=== PATIENT | male | born 1935 | race African-American/Black ===

== ENCOUNTER 2018-05-22 19:00 | Inpatient (IN) ==
--- NOTE | 2018-05-22 19:41 | XR ---
EXAM DATE: 05/22/2018 7:24 PM EDT AGE/SEX: 82 years / Male INDICATIONS: Chronic obstructive pulmonary disease. CLINICAL DATA: This is the patient's initial encounter. Patient reports that signs and symptoms have been present for 1 day and indicates a pain score of 0/10. MEDICAL/SURGICAL HISTORY: Chronic obstructive pulmonary disease. . Hernia repair. COMPARISON: [facility], CT CHEST W/O CONTRAST, 04/29/2018. [facility] [place], CHEST PA & LAT, 09/18/2013. . FINDINGS: Portable AP view of the chest demonstrates a normal-sized cardiac silhouette. There is rightward shif t of the mediastinum with that signs of volume loss in the right lung with a new parenchymal opacity in the right lower lung zone and blunting of the right costophrenic sulcus. Background lung changes a re characteristic of emphysema. No pneumothorax is identified. Bones demonstrate no acute abnormality . CONCLUSION: There is a new parenchymal opacity in the right lower lung zone, new compared to the chest CT perform ed approximately one month ago. There is also a new small right pleural effusion. Electronically signed by: Jerrod Patel MD 05/22/2018 7:40 PM EDT
[2018-05-22 20:08] LABS: Baso % (Auto) 0.4 % (0.0-2.0); Eos # (Auto) 0.1 th/mm3 (0.0-0.4); Eos % (Auto) 0.5 % (0.0-4.0); Hematocrit 29.5 % (39.0-51.0); Hemoglobin 9.5 gm/dL (13.0-17.0); Lymph # (Auto) 0.7 th/mm3 (1.0-4.8); Lymph % (Auto) 6.2 % (9.0-44.0); Mean Corpuscular HGB Conc 32.2 % (32.0-36.0); Mean Corpuscular Hemoglobin 28.2 pg (27.0-34.0); Mean Corpuscular Volume 87.7 fL (80.0-100.0); Mean Platelet Volume 7.4 fL (7.0-11.0); Mono # (Auto) 1.5 th/mm3 (0.0-0.9); Mono % (Auto) 13.4 % (0.0-8.0); Neut # (Auto) 8.7 th/mm3 (1.8-7.7); Neut % (Auto) 79.5 % (16.0-70.0); Platelet Count 356 th/mm3 (150-450); Red Blood Count 3.37 mil/mm3 (4.50-5.90); Red Cell Distribution Width 18.8 % (11.6-17.2); White Blood Count 10.9 th/mm3 (4.0-11.0)
[2018-05-22] MEDS ORDERED: Azithromycin Inj 500 MG in Sodium Chlor 0.9% Inj 250 ML IV.SIG ONE (20:20)
[2018-05-22 20:30] LABS: Amorphous Sediment,Urine Rare /hpf; Bacteria,Urine Rare /hpf; Bilirubin,Urine Negative (Negative); Clarity,Urine Hazy (Clear); Color,Urine Straw (Yellw/Straw); Glucose,Urine (UA) Negative (Negative); Leukocyte Esterase,Urine Negative (Negative); Nitrite,Urine Negative (Negative); Specific Gravity,Urine 1.012 (1.002-1.035); Squamous Epithelial Cell,Urine <1 /hpf (0-5)
[2018-05-22 20:48] LABS: Alanine Aminotransferase 15 U/L (12-78); Albumin 2.6 g/dL (3.4-5.0); Alkaline Phosphatase 47 U/L (45-117); Anion Gap 13 meq/L (5-15); Aspartate Aminotransferase 17 U/L (15-37); Blood Urea Nitrogen 98 mg/dL (7-18); Calcium 7.8 mg/dL (8.5-10.1); Carbon Dioxide 17.4 meq/L (21.0-32.0); Chloride 110 meq/L (98-107); Glomerular Filtration Rate 5 mL/min (>89); Glucose,Random 64 mg/dL (74-106); Sodium 140 meq/L (136-145); Total Protein 6.2 g/dL (6.4-8.2); Troponin I 0.03 ng/mL (0.02-0.05)
[2018-05-22 20:51] LABS: Potassium 6.9 meq/L (3.5-5.1)
[2018-05-22] MEDS ORDERED: Dextrose 50% in Water 50 ML Vial IV.PUSH ONE (20:56)
[2018-05-22] MEDS ORDERED: Sod Chloride 0.9% Inj 1,000 ML IV.SIG ONE ×2 (20:57→21:00)
[2018-05-22 21:03] LABS: ABG Base Excess -3.6 mmol/L (-2-2); ABG PCO2 42 mmHg (38-42); ABG PO2 84 mmHg (61-120)
[2018-05-22 21:16] LABS: Ovalocytes 2+
--- NOTE | 2018-05-22 21:38 | CT ---
EXAM DATE: 05/22/2018 9:25 PM EDT AGE/SEX: 82 years / Male INDICATIONS: Weakness, shortness of breath. CLINICAL DATA: This is the patient's initial encounter. Patient reports that signs and symptoms have been present for 1 day and indicates a pain score of 0/10. MEDICAL/SURGICAL HISTORY: Chronic obstructive pulmonary disease. Hypertension. . Hernia repair. RADIATION DOSE: 5.34 CTDI (mGy) COMPARISON: [facility], CT CHEST W/O CONTRAST, 04/29/2018. . TECHNIQUE: Multiple contiguous axial images were obtained through the chest without contrast. Image s were obtained in suspended respiration using multiple row detector helical technique. Using automa debby exposure control and adjustment of the mA and/or kV according to patient size, radiation dose was kept as low as reasonably achievable to obtain optimal diagnostic quality images. DICOM format imag e data is available electronically for review and comparison. FINDINGS: Lungs: There is moderate emphysema in the upper lobes. New groundglass opacity in the medial right u pper lobe is present. There is increased volume loss and airspace opacity in the right upper and righ t middle lobes. Mild dependent atelectasis is present in the right lower lobe. The left upper lobe pu lmonary nodule on image 27 is stable and measures 8 mm. Mediastinum: The heart and great vessels demonstrate no acute abnormality. No lymphadenopathy is id entified. There is severe atherosclerotic disease of the aorta with coronary artery calcification. Pleurae: A small right pleural effusion is present. There is trace left pleural fluid. Axillae: No lymphadenopathy. Musculoskeletal: The bones and soft tissues demonstrate no acute abnormality. There are degenerativ e changes of the thoracic spine. Other: Please refer to abdomen and pelvis CT report for description of the subdiaphragmatic findings . CONCLUSION: 1. There is volume loss and mild airspace opacity in the right upper lobe, right middle lobe, and le ft upper lobe. Material is also present within the bronchus intermedius suggesting aspiration as a po tential cause. These findings are new since the prior study. 2. New small right pleural effusion. 3. The left upper lobe 8 mm spiculated nodule remains present and will ultimately require further ev aluation as previously recommended. 4. Severe atherosclerotic disease and coronary artery calcification. Electronically signed by: Jerrod Patel MD 05/22/2018 9:37 PM EDT
--- NOTE | 2018-05-22 21:42 | CT ---
EXAM DATE: 05/22/2018 9:25 PM EDT AGE/SEX: 82 years / Male INDICATIONS: Abdominal pain. CLINICAL DATA: This is the patient's initial encounter. Patient reports that signs and symptoms have been present for 1 day and indicates a pain score of 5/10. MEDICAL/SURGICAL HISTORY: Chronic obstructive pulmonary disease. Hypertension. . Hernia repair . RADIATION DOSE: 5.47 CTDI (mGy) COMPARISON: [facility], CT ABDOMEN AND PELVIS W/O CONTRAST, 04/29/2018. . TECHNIQUE: Multiple contiguous axial images were obtained through the abdomen. Images were obtained using multiple row detector helical technique. Using automated exposure control and adjustment of the mA and/or kV according to patient size, radiation dose was kept as low as reasonably achievable to o btain optimal diagnostic quality images. DICOM format image data is available electronically for rev iew and comparison. FINDINGS: Lower chest: Please refer to chest CT report for description of the supradiaphragmatic findings. Hepatobiliary: No focal liver lesion is identified on this noncontrast examination. There is a calcif ied stone in the gallbladder. Common bile duct appears stable. Kidneys: Bilateral hydronephrosis and hydroureter remain present. There is a low-density lesion in th e left mid kidney measuring 17 mm with density measurements consistent with a simple cyst. Adrenal Glands: Not well visualized but no abnormality is appreciated. Spleen: Within normal limits. Pancreas: Not well visualized but no definite abnormality is seen. There is likely pancreas divisum a s the main duct appears to primarily drained through the minor papilla and main duct measures 4 mm. Vascular: There is severe atherosclerotic disease of the abdominal aorta. It has a tortuous course an d mildly ectatic. No aneurysm is present. Bowel/Mesentery: A small hiatal hernia is present. No small bowel abnormality is seen. No acute colon abnormality is visualized. No free air or free fluid is visualized. Abdominal Wall: No hernia is visualized. Retroperitoneum: No lymphadenopathy. Bladder: Decompressed with a Barreto catheter in place. Reproductive: Prostate gland is mildly enlarged. Inguinal: No lymphadenopathy or hernia. Musculoskeletal: No acute osseous abnormality is identified. There are degenerative changes of the ronni mbar spine with scoliosis. CONCLUSION: 1. No specific abnormality is identified to explain the abdominal pain. Barreto catheter is present wi thin the urinary bladder but there continues to be bilateral hydronephrosis and hydroureter similar t o the a prior study from 3 weeks ago. 2. Nonacute findings include cholelithiasis and severe atherosclerotic disease. Electronically signed by: Jerrod Patel MD 05/22/2018 9:41 PM EDT
--- NOTE | 2018-05-22 22:13 | ED ---
HPI General Chief complaint: Respiratory Symptoms Stated complaint: SOB Time Seen by Provider: 05/22/18 19:07 Source: patient, family and EMS Mode of arrival: EMS Limitations: no limitations History of Present Illness HPI narrative: 82-year-old male who presents to the ED for evaluation of shortness of breath. Patient came here by ambulance for violation of this. Per report I was given by ambulance apparently patient has been complain of shortness of breath and weakness for "sometimes ". Patient himself is not a good historian but he does tell me that he has a history of COPD and uses oxygen at home. Per patient uses 3 L. Apparently patient is not able to get up off his bed because he is very weak and apparently is by himself. Family upon he was at bedside and the ones who called the ambulance. Per [facility] they could not really get much history from the family. They kept saying that when he to ask him. Patient himself states that he does continue to smoke and has a history of COPD. He states he has a history of high blood pressure as well. Denies any history of heart problems. Denies take any blood thinners. He is having some chest pain on occasion and shortness of breath. No bowel movement issues but does state that he has been having multiple issues with his urine. Per patient he continues to urinate multiple times and because of his weakness he cannot make it to the bathroom. Denies dysuria. Related Data Home Medications Medication Instructions Recorded Confirmed doxepin 25 mg PO DAILY 05/22/18 05/22/18 gabapentin 400 mg PO DAILY 05/22/18 05/22/18 hydrocodone-acetaminophen 1 tab PO Q4-6H PRN 05/22/18 05/22/18 omeprazole 20 mg PO DAILY 05/22/18 05/22/18 prednisone 10 mg PO DAILY 05/22/18 05/22/18 tamsulosin 0.4 mg PO DAILY 05/22/18 05/22/18 trazodone 100 mg PO DAILY 05/22/18 05/22/18 Allergies Allergy/AdvReac Type Severity Reaction Status Date / Time No Known Allergies Allergy Unknown Uncoded 09/18/13 09:09 Review of Systems ROS Unobtainable All other systems reviewed negative except as stated in HPI [facility] Medical History Medical History COPD (chronic obstructive pulmonary disease) (Acute) Hypertension (Acute) Surgical History Surgical History H/O hernia repair (Acute) Social History Social History Second Hand Smoke Exposure: Yes Smoking Status: Light tobacco smoker Tobacco Type: Cigarettes How Often Do You Have a Drink Containing Alcohol: Never Recent Travel in [facility] within the Last 8 Weeks: No Recent Out of Country Travel within the Last 8 Weeks: No Immunization History Tetanus Immunization: Unsure Hx Influenza Vaccine This Season: Yes Exam Narrative Exam Narrative: GENERAL: Anorexic and slightly disheveled SKIN: Focused skin assessment warm/dry. HEAD: Atraumatic. Normocephalic. EYES: Pupils equal and round 4mms reactive to light and acomodation. No scleral icterus. No injection or drainage. ENT: No nasal bleeding or discharge. Mucous membranes pink and moist. Tongue is midline. No uvula deviation. NECK: Trachea midline. No JVD. CARDIOVASCULAR: Regular rate and rhythm. No murmur appreciated. RESPIRATORY: No accessory muscle use. Wheezing heard in all lung [place]. Breath sounds equal bilaterally. GASTROINTESTINAL: Abdomen soft, non-tender, nondistended. Hepatic and splenic margins not palpable. MUSCULOSKELETAL: No obvious deformities. No clubbing. No cyanosis. No edema. Full range of motion of the upper and lower extremities bilaterally. 2+ pulses bilaterally. NEUROLOGICAL: Awake and alert. No obvious cranial nerve deficits. Motor grossly within normal limits. Normal speech. PSYCHIATRIC: Appropriate mood and affect; insight and judgment normal. Course Initial Documented Vital Signs Temperature 98.6 F 05/22/18 19:13 Pulse Rate 106 H 05/22/18 19:13 Respiratory Rate 26 H 05/22/18 19:13 Blood Pressure 188/97 H 05/22/18 19:13 Pulse Oximetry 95 05/22/18 19:13 Last Documented Vital Signs Temperature 98.5 F 05/23/18 00:06 Pulse Rate 90 05/23/18 03:18 Respiratory Rate 18 05/23/18 03:18 Blood Pressure 180/98 H 05/23/18 03:18 Pulse Oximetry 97 05/23/18 03:18 Medical Decision Making NICA Attestation NICA supervised visit: Yes Attestation: Patient has acute renal failure bilateral hydronephrosis his creatinine is 11 we have no comparison recent but old 5 years ago it was normal on a lab value we found in past medical visits. Patient at this time is given 2 L of fluid to hydrate his kidneys as well as dextrose +10 units of insulin to drive the potassium intracellularly bicarb as well calcium gluconate and Kayexalate and is admitted to the ICU patient is stable at this time EKG does not show any peaked T waves patient has no cardiac symptoms of hyperkalemia at this time but his acute renal failure progressive over the last unknown amount of time is severe he will be admitted to the ICU Dr. Mark takes the patient from MDM Narrative Medical decision making narrative: 82-year-old male the presents to the ED for evaluation of shortness of breath. Patient was properly examined and was found to have signs and symptoms consider what appears to be COPD exacerbation. Patient does appear to be very disheveled. Labs and imaging ordered. Labs and imaging show what appears to be severe kidney disease. Patient himself does not know anything about kidney disease as far as I can tell. Patient and the family are not really good historians. Patient tells me that he has been having a lot of urinary issues but when asked if he has had any kidney problems he cannot really tell me and states that he has been having problems with his urine. He is along some better after breathing treatments and Solu-Medrol. Patient was also found to have hyperkalemia. Patient was started on Kayexalate , calcium gluconate, IV fluids, insulin and D50. Patient was evaluated by my attending Dr. Castle who agrees with plan. Patient will be admitted to the intensive is Dr. Harrington who agrees to admission. Family and patient agreed to admission. Differential Diagnosis Differential Diagnosis: Acute kidney failure versus kidney failure versus COPD exacerbation versus CHF versus weakness versus PE Medical Records Medical records reviewed: Yes I reviewed the patient's medical records. Lab Data Lab results reviewed: Yes I reviewed the patient's lab results. Lab results narrative: troponin of 0.03 Result diagrams: 05/22/18 19:20 05/23/18 00:10 Lab Results 05/22/18 05/22/18 05/22/18 Range/Units 19:20 19:20 19:20 WBC 10.9 (4.0-11.0) th/mm3 RBC 3.37 L (4.50-5.90) mil/mm3 Hgb 9.5 L (13.0-17.0) gm/dL Hct 29.5 L (39.0-51.0) % MCV 87.7 (80.0-100.0) fL MCH 28.2 (27.0-34.0) pg MCHC 32.2 (32.0-36.0) % RDW 18.8 H (11.6-17.2) % Plt Count 356 (150-450) th/mm3 MPV 7.4 (7.0-11.0) fL Prelim Diff (Auto) Slide review pending Neut % (Auto) 79.5 H (16.0-70.0) % Lymph % (Auto) 6.2 L (9.0-44.0) % [place] % (Auto) 13.4 H (0.0-8.0) % Eos % (Auto) 0.5 (0.0-4.0) % Baso % (Auto) 0.4 (0.0-2.0) % Neut # (Auto) 8.7 H (1.8-7.7) th/mm3 Lymph # (Auto) 0.7 L (1.0-4.8) th/mm3 [place] # (Auto) 1.5 H (0.0-0.9) th/mm3 Eos # (Auto) 0.1 (0.0-0.4) th/mm3 Baso # (Auto) 0.0 (0.0-0.2) th/mm3 WBC Differential . Diff Scan Auto diff confirmed Differential Comment . Ovalocytes 2+ H (None) Puncture Site Patient Temperature O2 Saturation (90-100) % ABG pH (7.380-7.420) ABG pCO2 (38-42) mmHg ABG pO2 (61-120) mmHg ABG HCO3 (22-26) mmol/L ABG O2 Content (12.0-20.0) Vol % ABG Base Excess (-2-2) mmol/L ABG Methemoglobin (0-2) % Onel Test Hemoglobin (12.0-16.0) G/DL Carboxyhemoglobin (0-4) % O2 Delivery Device Liter Flow L/M Inspired O2 % Critical Value Sodium 140 (136-145) meq/L Potassium 6.9 H* (3.5-5.1) meq/L Chloride 110 H (98-107) meq/L Carbon Dioxide 17.4 L (21.0-32.0) meq/L Anion Gap 13 (5-15) meq/L BUN 98 H (7-18) mg/dL Creatinine 11.63 H* (0.60-1.30) mg/dL Estimated GFR 5 L (>89) mL/min Random Glucose 64 L (74-106) mg/dL Calcium 7.8 L (8.5-10.1) mg/dL Total Bilirubin 1.2 H (0.2-1.0) mg/dL AST 17 (15-37) U/L ALT 15 (12-78) U/L Alkaline Phosphatase 47 (45-117) U/L Total Creatine Kinase 330 H (39-308) U/L CK-MB (CK-2) 7.6 H (0.5-3.6) ng/mL CK-MB (CK-2) % 2.3 (0.0-4.0) % Troponin I 0.03 (0.02-0.05) ng/mL Total Protein 6.2 L (6.4-8.2) g/dL Albumin 2.6 L (3.4-5.0) g/dL Urine Color (Yellw/Straw) Urine Clarity (Clear) Urine pH (5.0-8.5) Ur Specific [place] (1.002-1.035) Urine Protein (Neg-Trace) mg/dL Urine Glucose (UA) (Negative) mg/dL Urine Ketones (Negative) mg/dL Urine Occult Blood (Negative) Urine Nitrate (Negative) Urine Bilirubin (Negative) Urine Urobilinogen (Less than 2) mg/dL Ur Leukocyte Esterase (Negative) Urine RBC (0-3) /hpf Urine WBC (0-5) /hpf Ur Squamous Epith Cells (0-5) /hpf Amorphous Sediment (None) /hpf Urine Bacteria (None) /hpf Micro UA Comment Urine Culture Comments Urine Eosinophils (None Seen) /HPF Ur Random Creatinine (27-300) mg/dL Ur Random Sodium meq/L Complement C3 (90-180) mg/dL Complement C4 (10-40) mg/dL 05/22/18 05/22/18 05/22/18 Range/Units 19:20 19:45 19:45 WBC (4.0-11.0) th/mm3 RBC (4.50-5.90) mil/mm3 Hgb (13.0-17.0) gm/dL Hct (39.0-51.0) % MCV (80.0-100.0) fL MCH (27.0-34.0) pg MCHC (32.0-36.0) % RDW (11.6-17.2) % Plt Count (150-450) th/mm3 MPV (7.0-11.0) fL Prelim Diff (Auto) Neut % (Auto) (16.0-70.0) % Lymph % (Auto) (9.0-44.0) % [place] % (Auto) (0.0-8.0) % Eos % (Auto) (0.0-4.0) % Baso % (Auto) (0.0-2.0) % Neut # (Auto) (1.8-7.7) th/mm3 Lymph # (Auto) (1.0-4.8) th/mm3 [place] # (Auto) (0.0-0.9) th/mm3 Eos # (Auto) (0.0-0.4) th/mm3 Baso # (Auto) (0.0-0.2) th/mm3 WBC Differential Diff Scan Differential Comment Ovalocytes (None) Puncture Site Patient Temperature O2 Saturation (90-100) % ABG pH (7.380-7.420) ABG pCO2 (38-42) mmHg ABG pO2 (61-120) mmHg ABG HCO3 (22-26) mmol/L ABG O2 Content (12.0-20.0) Vol % ABG Base Excess (-2-2) mmol/L ABG Methemoglobin (0-2) % Onel Test Hemoglobin (12.0-16.0) G/DL Carboxyhemoglobin (0-4) % O2 Delivery Device Liter Flow L/M Inspired O2 % Critical Value Sodium (136-145) meq/L Potassium (3.5-5.1) meq/L Chloride (98-107) meq/L Carbon Dioxide (21.0-32.0) meq/L Anion Gap (5-15) meq/L BUN (7-18) mg/dL Creatinine (0.60-1.30) mg/dL Estimated GFR (>89) mL/min Random Glucose (74-106) mg/dL Calcium (8.5-10.1) mg/dL Total Bilirubin (0.2-1.0) mg/dL AST (15-37) U/L ALT (12-78) U/L Alkaline Phosphatase (45-117) U/L Total Creatine Kinase (39-308) U/L CK-MB (CK-2) (0.5-3.6) ng/mL CK-MB (CK-2) % (0.0-4.0) % Troponin I (0.02-0.05) ng/mL Total Protein (6.4-8.2) g/dL Albumin (3.4-5.0) g/dL Urine Color Straw (Yellw/Straw) Urine Clarity Hazy H (Clear) Urine pH 7.0 (5.0-8.5) Ur Specific [place] 1.012 (1.002-1.035) Urine Protein Negative (Neg-Trace) mg/dL Urine Glucose (UA) Negative (Negative) mg/dL Urine Ketones 20 (Negative) mg/dL Urine Occult Blood Moderate H (Negative) Urine Nitrate Negative (Negative) Urine Bilirubin Negative (Negative) Urine Urobilinogen Less than 2 (Less than 2) mg/dL Ur Leukocyte Esterase Negative (Negative) Urine RBC 19 H (0-3) /hpf Urine WBC 4 (0-5) /hpf Ur Squamous Epith Cells <1 (0-5) /hpf Amorphous Sediment Rare H (None) /hpf Urine Bacteria Rare H (None) /hpf Micro UA Comment Culture not ind Urine Culture Comments Culture not ind Urine Eosinophils None seen (None Seen) /HPF Ur Random Creatinine (27-300) mg/dL Ur Random Sodium meq/L Complement C3 92 (90-180) mg/dL Complement C4 24 (10-40) mg/dL 05/22/18 05/22/18 05/23/18 Range/Units 19:45 19:50 00:10 WBC (4.0-11.0) th/mm3 RBC (4.50-5.90) mil/mm3 Hgb (13.0-17.0) gm/dL Hct (39.0-51.0) % MCV (80.0-100.0) fL MCH (27.0-34.0) pg MCHC (32.0-36.0) % RDW (11.6-17.2) % Plt Count (150-450) th/mm3 MPV (7.0-11.0) fL Prelim Diff (Auto) Neut % (Auto) (16.0-70.0) % Lymph % (Auto) (9.0-44.0) % [place] % (Auto) (0.0-8.0) % Eos % (Auto) (0.0-4.0) % Baso % (Auto) (0.0-2.0) % Neut # (Auto) (1.8-7.7) th/mm3 Lymph # (Auto) (1.0-4.8) th/mm3 [place] # (Auto) (0.0-0.9) th/mm3 Eos # (Auto) (0.0-0.4) th/mm3 Baso # (Auto) (0.0-0.2) th/mm3 WBC Differential Diff Scan Differential Comment Ovalocytes (None) Puncture Site Right radial Patient Temperature 98.6 O2 Saturation 94 (90-100) % ABG pH 7.33 L (7.380-7.420) ABG pCO2 42 (38-42) mmHg ABG pO2 84 (61-120) mmHg ABG HCO3 22 (22-26) mmol/L ABG O2 Content 11.8 L (12.0-20.0) Vol % ABG Base Excess -3.6 L (-2-2) mmol/L ABG Methemoglobin 0.7 (0-2) % Onel Test Present Hemoglobin 8.9 L (12.0-16.0) G/DL Carboxyhemoglobin 1.5 (0-4) % O2 Delivery Device Nasal cannula Liter Flow 3.00 L/M Inspired O2 21 % Critical Value No Sodium (136-145) meq/L Potassium 5.7 H D (3.5-5.1) meq/L Chloride (98-107) meq/L Carbon Dioxide (21.0-32.0) meq/L Anion Gap (5-15) meq/L BUN (7-18) mg/dL Creatinine (0.60-1.30) mg/dL Estimated GFR (>89) mL/min Random Glucose (74-106) mg/dL Calcium (8.5-10.1) mg/dL Total Bilirubin (0.2-1.0) mg/dL AST (15-37) U/L ALT (12-78) U/L Alkaline Phosphatase (45-117) U/L Total Creatine Kinase (39-308) U/L CK-MB (CK-2) (0.5-3.6) ng/mL CK-MB (CK-2) % (0.0-4.0) % Troponin I (0.02-0.05) ng/mL Total Protein (6.4-8.2) g/dL Albumin (3.4-5.0) g/dL Urine Color (Yellw/Straw) Urine Clarity (Clear) Urine pH (5.0-8.5) Ur Specific [place] (1.002-1.035) Urine Protein (Neg-Trace) mg/dL Urine Glucose (UA) (Negative) mg/dL Urine Ketones (Negative) mg/dL Urine Occult Blood (Negative) Urine Nitrate (Negative) Urine Bilirubin (Negative) Urine Urobilinogen (Less than 2) mg/dL Ur Leukocyte Esterase (Negative) Urine RBC (0-3) /hpf Urine WBC (0-5) /hpf Ur Squamous Epith Cells (0-5) /hpf Amorphous Sediment (None) /hpf Urine Bacteria (None) /hpf Micro UA Comment Urine Culture Comments Urine Eosinophils (None Seen) /HPF Ur Random Creatinine 68 (27-300) mg/dL Ur Random Sodium 97 meq/L Complement C3 (90-180) mg/dL Complement C4 (10-40) mg/dL Imaging Data Attestation: I personally reviewed and interpreted this imaging study as follows : Radiologist's impression: ITS Impressions Chest X-Ray 05/22/18 19:08 CONCLUSION: There is a new parenchymal opacity in the right lower lung zone, new compared to the chest CT performed approximately one month ago. There is also a new small right pleural effusion. Abdomen/Pelvis CT 05/22/18 21:04 CONCLUSION: 1. No specific abnormality is identified to explain the abdominal pain. Barreto catheter is present within the urinary bladder but there continues to be bilateral hydronephrosis and hydroureter similar to the a prior study from 3 weeks ago. 2. Nonacute findings include cholelithiasis and severe atherosclerotic disease. Chest CT 05/22/18 21:04 CONCLUSION: 1. There is volume loss and mild airspace opacity in the right upper lobe, right middle lobe, and left upper lobe. Material is also present within the bronchus intermedius suggesting aspiration as a potential cause. These findings are new since the prior study. 2. New small right pleural effusion. 3. The left upper lobe 8 mm spiculated nodule remains present and will ultimately require further evaluation as previously recommended. 4. Severe atherosclerotic disease and coronary artery calcification. ECG Data EKG Prior to Arrival: No Interpretation: EKG showed sinus tachycardia but no sign of ischemia or hyperkalemic changes. Evaluated by my attending and myself. Discharge Plan Discharge Disposition Patient Disposition: 30 Still Patient Discharge Details Diagnosis: Acute kidney failure, Hydronephrosis, Acute exacerbation of COPD with asthma, Weakness, Lung nodule Physicians Team ED Provider: Bubba Castle ED Midlevel Provider: Josh Curran Primary Care Provider: Nishant Johnson Attending Provider: Rocael Harrington Other Providers: Cee Granados Status ED Status: Admitted Patient
[2018-05-22] MEDS ORDERED: Sod Chloride 0.9% Inj 1,000 ML IV.CONT SCH (22:15)
[2018-05-22 22:21] LABS: CKMB Percent 2.3 % (0.0-4.0); Creatine Kinase MB 7.6 ng/mL (0.5-3.6)
[2018-05-22] MEDS ORDERED: Calcium Chloride Inj 1 GM in Sodium Chlor 0.9% Inj 100 ML IV.SIG ONE (22:21)
[2018-05-22] MEDS ORDERED: Sodium Polystyrene Sulfonate/Sorbitol Liq 15 GM/60 ML UDC PO ONE (22:22)
[2018-05-22] MEDS: Heparin - SQ 10,000 UNITS/ML Vial SQ SCH (22:39)
--- NOTE | 2018-05-22 23:48 | P.HPCC ---
History of Present Illness Service: Critical Care Medicine Primary Care Physician: Nishant Johnson DO Chief Complaint: fatigue History of Present Illness: 82yM presented to ER for shortness of breath and fatigue. very poor historian and difficult to obtain full medical history. no family at bedside to assist. remainder of history from medical record. patient does tell me that he knows he has "minor kidney problems" and has seen someone recently for this. in the ER his Cr is 11, K 6.9. CT abd/pelvis with bilateral hydronephrosis which does not appear to be obstructive in nature. radiology has compared this to a recent prior CT scan a few weeks ago from the outpatient radiology center and says it is unchanged and stable, but I do not have any records of any prior medical visit in our system to address why the CT scan was performed, or what if any intervention took place. Patient has a history of COPD on 3L o2 at home. he endorses SOB, but this appears to be stable and not new or acute. denies new cough, sputum production, fever, chills. patient endorses frequency and urgency of urination but denies urinary retention or prostate problems to me. remainder of ROS is essentially unobtainable due to his poor recollection of his medical history. Inpatient Certification: I certify that the inpatient services were ordered in accordance with Medicare regulations governing the order. This includes certification that hospital inpatient services are reasonable and necessary and in the case of services not specified as inpatient-only under 42 CFR 419.22(n), that they are appropriately provided as inpatient services in accordance to with the 2-midnight benchmark under 43 CFR 412.3(e) Estimated Total Length of Stay (Days): 5 Plans for Post Hospital Care: Not yet determined Review of Systems unobtainable due to mental condition PMFSH - History History Provided By: Patient, [employer] / EMT - Medical / Surgical Hx Neg / Unobtainable Medical Problems Denied: Unable to Obtain Surgical History: Unable to Obtain - Medical History Medical History: Medical History (Last Reviewed 05/22/18 @ 22:26 by JENNIE Bautista) COPD (chronic obstructive pulmonary disease) Hypertension - Surgical History Surgical History: Surgical History (Last Reviewed 05/22/18 @ 22:26 by JENNIE Bautista) H/O hernia repair - Tobacco History Second Hand Smoke Exposure: Yes Tobacco Use In Past 30 Days: Yes Smoking Status: Light tobacco smoker Tobacco Type: Cigarettes - Alcohol History How Often Do You Have a Drink Containing Alcohol: Never - Travel History Recent Travel in the [place] Within the Last 8 Weeks: No Recent Travel Out of the Country Within the Last 8 Weeks: No - Immunization History Tetanus Immunization: Unsure Hx Influenza Vaccine This Season: Yes Medications and Allergies Active Medications: Active Medications Albuterol (Duoneb Neb (Prn)) 1 ampul NEB Q2HR NEB PRN PRN Reason: WHEEZING Chlorhexidine Gluconate (Chlorhexidine 2% Cloth) 3 pack TOPICAL DAILY@0400 LALITO Stop: 05/28/18 03:59 Chlorhexidine Gluconate (Chlorhexidine 2% Cloth) 3 pack TOPICAL DAILY@0400 PRN PRN Reason: Extra cloth needed Stop: 05/28/18 03:59 Doxepin HCl (Sinequan) 25 mg PO DAILY [facility] Heparin Sodium (Porcine) (Heparin Inj) 5,000 units SQ Q12H [facility] Last Admin: 05/22/18 22:39 Dose: 5,000 units Sodium Chloride (Ns Inj) 1,000 mls @ 120 mls/hr IV.CONT .Q8H20M [facility] Last Admin: 05/22/18 22:40 Dose: 120 mls/hr Ondansetron HCl (Zofran Inj) 4 mg IV.PUSH Q6H PRN PRN Reason: NAUSEA OR VOMITING Sodium Chloride (Ns Flush) 2 ml IV.FLUSH PRN PRN PRN Reason: FLUSH AFTER USING IV ACCESS Sodium Chloride (Ns Flush) 2 ml IV.FLUSH BID [facility] Sodium Chloride (Ns Flush) 2 ml IV.FLUSH PRN PRN PRN Reason: FLUSH AFTER USING IV ACCESS Tamsulosin HCl (Flomax) 0.4 mg PO DAILY [facility] Allergies Allergy/AdvReac Type Severity Reaction Status Date / Time No Known Allergies Allergy Unknown Uncoded 09/18/13 09:09 Home Medications Medication Instructions Recorded Confirmed Type doxepin 25 mg PO DAILY 05/22/18 05/22/18 History gabapentin 400 mg PO DAILY 05/22/18 05/22/18 History hydrocodone-acetaminophen 1 tab PO Q4-6H PRN 05/22/18 05/22/18 History omeprazole 20 mg PO DAILY 05/22/18 05/22/18 History prednisone 10 mg PO DAILY 05/22/18 05/22/18 History tamsulosin 0.4 mg PO DAILY 05/22/18 05/22/18 History trazodone 100 mg PO DAILY 05/22/18 05/22/18 History Results - Labs CBC & Chem 7: 05/22/18 19:20 05/23/18 00:10 Labs: Short CBC 05/22/18 Range/Units 19:20 WBC 10.9 (4.0-11.0) th/mm3 Hgb 9.5 L (13.0-17.0) gm/dL Hct 29.5 L (39.0-51.0) % Plt Count 356 (150-450) th/mm3 BMP 05/22/18 19:20 Sodium 140 Potassium 6.9 H* Chloride 110 H Carbon Dioxide 17.4 L BUN 98 H Creatinine 11.63 H* Calcium 7.8 L Cardiac Enzymes 05/22/18 05/22/18 Range/Units 19:20 19:20 Total Creatine Kinase 330 H (39-308) U/L CK-MB (CK-2) 7.6 H (0.5-3.6) ng/mL Troponin I 0.03 (0.02-0.05) ng/mL Liver Function 05/22/18 Range/Units 19:20 Total Bilirubin 1.2 H (0.2-1.0) mg/dL AST 17 (15-37) U/L ALT 15 (12-78) U/L Alkaline Phosphatase 47 (45-117) U/L Albumin 2.6 L (3.4-5.0) g/dL Urine 05/22/18 Range/Units 19:45 Urine Color Straw (Yellw/Straw) Urine Clarity Hazy H (Clear) Urine pH 7.0 (5.0-8.5) Ur Specific [place] 1.012 (1.002-1.035) Urine Protein Negative (Neg-Trace) mg/dL Urine Glucose (UA) Negative (Negative) mg/dL - Imaging Impressions Chest X-Ray 05/22/18 19:08 CONCLUSION: There is a new parenchymal opacity in the right lower lung zone, new compared to the chest CT performed approximately one month ago. There is also a new small right pleural effusion. Abdomen/Pelvis CT 05/22/18 21:04 CONCLUSION: 1. No specific abnormality is identified to explain the abdominal pain. Barreto catheter is present within the urinary bladder but there continues to be bilateral hydronephrosis and hydroureter similar to the a prior study from 3 weeks ago. 2. Nonacute findings include cholelithiasis and severe atherosclerotic disease. Chest CT 05/22/18 21:04 CONCLUSION: 1. There is volume loss and mild airspace opacity in the right upper lobe, right middle lobe, and left upper lobe. Material is also present within the bronchus intermedius suggesting aspiration as a potential cause. These findings are new since the prior study. 2. New small right pleural effusion. 3. The left upper lobe 8 mm spiculated nodule remains present and will ultimately require further evaluation as previously recommended. 4. Severe atherosclerotic disease and coronary artery calcification. Exam Vital signs: Vital Signs 05/22/18 19:13 05/22/18 19:20 05/22/18 19:30 Temperature 37.0 C Pulse Rate 106 H 102 H 98 H Respiratory Rate 26 H 22 18 Blood Pressure 188/97 H Pulse Oximetry 95 05/22/18 22:09 05/22/18 22:28 05/22/18 22:38 Temperature Pulse Rate 101 H Respiratory Rate 20 Blood Pressure 149/88 H Pulse Oximetry 96 97 97 Intake & Output 05/22/18 05/22/18 05/23/18 06:59 18:59 06:59 Intake Total 1999 Output Total 250 / 250 Balance 1750 / 1750 Weight 52.163 kg Intake: Trauma Intake Amount 1999 Output: Urine Amount (Catheter) 250 / 250 Indwelling Urethral Catheter 250 / 250 Narrative: GENERAL: Cachectic elderly male, frail, lying in bed HEENT: Normocephalic. Atraumatic. Pupils equal, round, reactive, conjugate. Mucous membranes are moist NECK: Trachea is midline. There is no JVD. CHEST: Equal chest rise. Nasal cannula oxygen. CARDIOVASCULAR: Normal rate, regular rhythm. Sinus. ABDOMEN: Soft, nontender, nondistended. No guarding. MUSCULOSKELETAL: Pulses 2+. No peripheral edema. NEUROLOGICAL: RASS -1. Follows commands in all 4 extremities. No focal deficits. Caprini VTE Risk Assessment Caprini VTE Risk Assessment: Moderate/High Risk (score >= 2) Caprini Risk Assessment Model: Point Value = 1 Point Value = 2 Point Value = 3 Point Value = 5 Age 41-60 Minor surgery BMI > 25 kg/m2 Swollen legs Varicose veins or History of unexplained or recurrent spontaneous Oral contraceptives or hormone replacement Sepsis (< 1 month) Serious lung disease, including pneumonia (< 1 month) Abnormal pulmonary function Acute myocardial infarction Congestive heart failure (< 1 month) History of inflammatory bowel disease Medical patient at bed rest Age 61-74 Arthroscopic surgery Major open surgery (> 45 min) Laparoscopic surgery (> 45 min) Malignancy Confined to bed (> 72 hours) Immobilizing plaster cast Central venous access Age >= 75 History of VTE Family history of VTE Factor V Leiden Prothrombin [id number] Lupus anticoagulant Anticardiolipin antibodies Elevated serum homocysteine Heparin-induced thrombocytopenia Other congenital or acquired thrombophilia Stroke (< 1 month) Elective arthroplasty Hip, pelvis, or leg fracture Acute spinal cord injury (< 1 month) Prophylaxis Regimen: Total Risk Factor Score Risk Level Prophylaxis Regimen 0-1 Low Early ambulation 2 Moderate Order ONE of the following: *Sequential Compression Device (SCD) *Heparin 5000 units SQ BID 3-4 Higher Order ONE of the following medications: *Heparin 5000 units SQ TID *Enoxaparin/Lovenox 40 mg SQ daily (WT < 150 kg, CrCl > 30 mL/min) *Enoxaparin/Lovenox 30 mg SQ daily (WT < 150 kg, CrCl > 10-29 mL/min) *Enoxaparin/Lovenox 30 mg SQ BID (WT < 150 kg, CrCl > 30 mL/min) AND/OR *Sequential Compression Device (SCD) 5 or more Highest Order ONE of the following medications: *Heparin 5000 units SQ TID (Preferred with Epidurals) *Enoxaparin/Lovenox 40 mg SQ daily (WT < 150 kg, CrCl > 30 mL/min) *Enoxaparin/Lovenox 30 mg SQ daily (WT < 150 kg, CrCl > 10-29 mL/min) *Enoxaparin/Lovenox 30 mg SQ BID (WT < 150 kg, CrCl > 30 mL/min) AND *Sequential Compression Device (SCD) Assessment and Plan - Assessment and Plan Plan: Assessment: 82-year-old male with COPD who presents with new acute kidney injury with evidence of bilateral hydronephrosis without overt evidence of obstruction. When the Barreto catheter was placed in the emergency department only 100 cc of urine was collected, suggesting that this was not urinary retention and hydronephrosis from prostatic obstruction. I discussed the case with Dr. Kwok with interventional radiology and he recommended nuclear medicine renogram in the morning to differentiate between ongoing obstruction and possible medical renal disease versus reflux uropathy. He did not feel that bilateral nephrostomy tubes was indicated emergently tonight. We will admit the patient and manage his electrolyte abnormalities medically with a backup plan of emergent/emergent dialysis. He remains very critically ill with new acute kidney injury which is life-threatening as well as life-threatening electrolyte abnormalities. Active problems: Severe life-threatening acute kidney injury superimposed on chronic renal insufficiency of unknown stage Severe life-threatening hyperkalemia Bilateral hydronephrosis Benign prostatic hyperplasia Urinary retention Uremic encephalopathy Severe uremia Acute non-anion gap metabolic acidosis Plan: Admit ICU Place Barreto Maintenance IV fluids Calcium chloride, D50, insulin, bicarb, Kayexalate Serial potassiums Nephrology consult No indication for emergent renal replacement therapy as long as potassium improves with medical management Daily BMP Daily CBC Continue home BPH meds Trend acidosis, but no immediate indication for bicarbonate at this time Frequent neurochecks Avoid long-acting sedatives Subcu heparin 5000 every 12 Pepcid Nursing bedside swallow and advance diet as tolerated Nuclear medicine renogram in the morning This patient remains critically ill with one or more organ systems which are or may become a threat to life. I have spent in excess of 57 minutes discontinuously in the care and management of this patient. This time is exclusive of procedures, and includes, but is not limited to, evaluation of the patient, review of the medical record, discussions with family, consultants, nursing staff, or respiratory therapy, and documentation in the medical record. Discussed Condition With: Dr. Kwok, er physician, RN at bedside.
[2018-05-22 23:57] LABS: Creatinine,Urine Random 68 mg/dL (27-300)
[2018-05-23 00:32] LABS: Complement C3 92 mg/dL (90-180)
[2018-05-23] MEDS ORDERED: Chlorhexidine Gluconate 2% 1 Pack (2 Cloths) TOPICAL PRN (04:00)
[2018-05-23] MEDS: Labetalol HCl Inj 100 MG/20 ML Vial IV.PUSH PRN ×2 (04:02→05:31)
[2018-05-23 04:37] LABS: Baso % (Auto) 0.4 % (0.0-2.0); Hematocrit 26.1 % (39.0-51.0); Hemoglobin 8.7 gm/dL (13.0-17.0); Lymph # (Auto) 0.1 th/mm3 (1.0-4.8); Lymph % (Auto) 1.3 % (9.0-44.0); Mean Corpuscular HGB Conc 33.4 % (32.0-36.0); Mean Corpuscular Hemoglobin 29.2 pg (27.0-34.0); Mean Corpuscular Volume 87.5 fL (80.0-100.0); Mean Platelet Volume 7.1 fL (7.0-11.0); Mono # (Auto) 0.1 th/mm3 (0.0-0.9); Mono % (Auto) 1.1 % (0.0-8.0); Neut # (Auto) 8.8 th/mm3 (1.8-7.7); Neut % (Auto) 97.2 % (16.0-70.0); Platelet Count 317 th/mm3 (150-450); Red Blood Count 2.99 mil/mm3 (4.50-5.90); Red Cell Distribution Width 18.5 % (11.6-17.2); White Blood Count 9.1 th/mm3 (4.0-11.0)
[2018-05-23 04:58] LABS: Alanine Aminotransferase 24 U/L (12-78); Alkaline Phosphatase 53 U/L (45-117); Anion Gap 12 meq/L (5-15); Aspartate Aminotransferase 34 U/L (15-37); Blood Urea Nitrogen 96 mg/dL (7-18); Calcium 8.8 mg/dL (8.5-10.1); Carbon Dioxide 19.8 meq/L (21.0-32.0); Chloride 110 meq/L (98-107); Glomerular Filtration Rate 5 mL/min (>89); Glucose,Random 172 mg/dL (74-106); Magnesium 3.1 mg/dL (1.5-2.5); Phosphorus 5.9 mg/dL (2.5-4.9); Sodium 142 meq/L (136-145); Total Protein 7.2 g/dL (6.4-8.2)
[2018-05-23 05:07] LABS: Potassium 7.2 meq/L (3.5-5.1)
[2018-05-23 05:16] LABS: Ovalocytes 2+
[2018-05-23] MEDS ORDERED: Mag Sulf 1 gm/100 ml Premix 100 ML IV.SIG ONE (05:44)
[2018-05-23] MEDS ORDERED: Calcium Chloride Inj 1 GM in Sodium Chlor 0.9% Inj 100 ML IV.SIG ONE (05:44)
[2018-05-23] MEDS ORDERED: Dextrose 50% in Water 50 ML Vial IV.PUSH SCH (05:44)
[2018-05-23] MEDS ORDERED: Sodium Polystyrene Sulfate 30 GM/120 ML Enema RECTAL ONE (05:45)
[2018-05-23] MEDS ORDERED: Sodium Polystyrene Sulfonate/Sorbitol Liq 15 GM/60 ML UDC PO ONE (05:45)
[2018-05-23] MEDS ORDERED: Sodium Bicarbonate 8.4% Inj 50 MEQ/50 ML Syringe ONE (06:53)
--- NOTE | 2018-05-23 07:08 | P.PNCC ---
Subjective Subjective Remarks/Hospital Course: 82yM presented to ER for shortness of breath and fatigue. very poor historian and difficult to obtain full medical history. no family at bedside to assist. remainder of history from medical record. patient does tell me that he knows he has "minor kidney problems" and has seen someone recently for this. in the ER his Cr is 11, K 6.9. CT abd/pelvis with bilateral hydronephrosis which does not appear to be obstructive in nature. radiology has compared this to a recent prior CT scan a few weeks ago from the outpatient radiology center and says it is unchanged and stable, but I do not have any records of any prior medical visit in our system to address why the CT scan was performed, or what if any intervention took place. Patient has a history of COPD on 3L o2 at home. he endorses SOB, but this appears to be stable and not new or acute. denies new cough, sputum production, fever, chills. patient endorses frequency and urgency of urination but denies urinary retention or prostate problems to me. remainder of ROS is essentially unobtainable due to his poor recollection of his medical history. 05/23: Potassium down to 5.2, now back to 7.2. Urine > 200/hr. I'll increase serum pH and aggressively diurese. Usual adjuvants added as well. Mild wheezes now and + JVD. BRADY nodule is outpatient issue and not emergent. Will discuss ureteral decompression with Nephrology Service. Objective Vital Signs / I&O: Vital Signs 05/22/18 19:13 05/22/18 19:20 05/22/18 19:30 Temperature 98.6 F Pulse Rate 106 H 102 H 98 H Respiratory Rate 26 H 22 18 Blood Pressure 188/97 H Pulse Oximetry 95 05/22/18 22:09 05/22/18 22:28 05/22/18 22:38 Temperature Pulse Rate 101 H Respiratory Rate 20 Blood Pressure 149/88 H Pulse Oximetry 96 97 97 05/23/18 00:06 05/23/18 01:03 05/23/18 02:13 Temperature 98.5 F Pulse Rate 106 H 112 H 100 H Respiratory Rate 20 20 20 Blood Pressure 158/108 H 167/92 H 175/90 H Pulse Oximetry 96 05/23/18 03:18 05/23/18 04:25 05/23/18 05:27 Temperature 98.5 F Pulse Rate 90 104 H 91 H Respiratory Rate 18 16 18 Blood Pressure 180/98 H 153/79 H 189/86 H Pulse Oximetry 97 05/23/18 05:32 Temperature Pulse Rate 80 Respiratory Rate 16 Blood Pressure 153/74 H Pulse Oximetry Intake & Output 05/22/18 05/22/18 05/23/18 06:59 18:59 06:59 Intake Total 4460 / 4460 Output Total 1700 / 1700 Balance 2760 / 2760 Weight 52.163 kg Intake: IV 2460 / 2460 Trauma Intake Amount 1999 Output: Urine Amount (Catheter) 1700 / 1700 Indwelling Urethral Catheter 1700 / 1700 Result Diagrams: 05/23/18 04:15 05/23/18 04:15 Objective Remarks: PE: GENERAL: Cachectic elderly male, frail, lying in bed HEENT: Normocephalic. Atraumatic. Pupils equal, round, reactive, conjugate. Mucous membranes are moist NECK: Trachea is midline. Airway widely patent. + JVD. CHEST: Equal chest rise. Nasal cannula oxygen. Light diffuse wheezes. CARDIOVASCULAR: Normal rate, regular rhythm. Sinus. No m,r. ABDOMEN: Soft, nontender, nondistended. No guarding. BS active. MUSCULOSKELETAL: Pulses 2+. No peripheral edema. Well perfused. NEUROLOGICAL: RASS 0. Follows commands in all 4 extremities. No focal deficits. Conversant. Assessment and Plan - Assessment and Plan Plan: Assessment: 82-year-old male with COPD who presents with new acute kidney injury with evidence of bilateral hydronephrosis without overt evidence of obstruction. When the Barreto catheter was placed in the emergency department only 100 cc of urine was collected, suggesting that this was not urinary retention and hydronephrosis from prostatic obstruction. Discussed the case with Dr. Kwok with interventional radiology and he recommended nuclear medicine renogram in the morning to differentiate between ongoing obstruction and possible medical renal disease versus reflux uropathy. He did not feel that bilateral nephrostomy tubes was indicated emergently tonight. We will admit the patient and manage his electrolyte abnormalities medically with a backup plan of emergent/emergent dialysis. He remains very critically ill with new acute kidney injury which is life-threatening as well as life-threatening electrolyte abnormalities. Active problems: Severe life-threatening acute kidney injury superimposed on chronic renal insufficiency of unknown stage Severe life-threatening hyperkalemia Bilateral hydronephrosis Benign prostatic hyperplasia Urinary retention Uremic encephalopathy Severe uremia Acute non-anion gap metabolic acidosis BRADY lung nodule, 8 mm COPD, not exacerbated. Plan: Diuresis. Bicarb gtt. Place Barreto Exchange resin enema. Calcium chloride, D50, insulin. Serial potassiums Nephrology consult No indication for emergent renal replacement therapy as long as potassium improves with medical management Daily renal function panel Daily CBC Continue home BPH meds Trend acidosis, but no immediate indication for bicarbonate at this time Frequent neurochecks Avoid long-acting sedatives Subcu heparin 5000 every 12 Pepcid Nursing bedside swallow and advance diet as tolerated Nuclear medicine renogram in the morning Overall impression: This patient remains critically ill with one or more organ systems which are or may become a threat to life. I have spent in excess of 60 minutes discontinuously in the care and management of this patient. This time is exclusive of procedures, and includes, but is not limited to, evaluation of the patient, review of the medical record, discussions with family, consultants , nursing staff, or respiratory therapy, and documentation in the medical record. Critical Care 60 mins
[2018-05-23] MEDS ORDERED: Sodium Bicarbonate 8.4% Inj 150 MEQ in Water for Inj, Sterile 850 ML IV.CONT SCH (08:00)
[2018-05-23] MEDS ORDERED: Sodium Polystyrene Sulfonate/Sorbitol Liq 15 GM/60 ML UDC RECTAL ONE (08:00)
[2018-05-23] MEDS: Chlorhexidine Gluconate 2% 1 Pack (2 Cloths) TOPICAL SCH (09:27)
[2018-05-23] MEDS: Heparin - SQ 10,000 UNITS/ML Vial SQ SCH ×2 (11:44→22:26)
[2018-05-23 13:39] LABS: Albumin 3.1 g/dL (3.4-5.0); Calcium 9.1 mg/dL (8.5-10.1); Carbon Dioxide 32.4 meq/L (21.0-32.0); Potassium 4.4 meq/L (3.5-5.1)
--- NOTE | 2018-05-23 14:33 | NM ---
EXAM DATE: 05/23/2018 2:26 PM EDT AGE/SEX: 82 years / Male INDICATIONS: Bilateral hydronephrosis. CLINICAL DATA: This is the patient's initial encounter. Patient reports that signs and symptoms have been present for 1 day and indicates a pain score of 0/10. MEDICAL/SURGICAL HISTORY: Chronic obstructive pulmonary disease. Hypertension. Umbilical herni a repair. COMPARISON: No prior exams available for comparison. TECHNIQUE: Following the intravenous administration of radiotracer, dynamic imaging of flow and excre tory phases was performed. DOSE: 21.0 mCi Tc99m DTPA IV MEDICATION: 40 mg Lasix IV at 13 minutes. Mins FINDINGS: Flow: Only the excretion curves were captured. Visually there is symmetrical flow to both kidneys. Differential Function: Differential function on the right 56.5. Differential function the left 43.5. Excretion: There is normal renal cortical transit time slow parenchymal washout without fixed obstru ction. CONCLUSION: 1. Slow parenchymal washout without fixed obstruction. Ureters appear prominent suggesting mild hydr onephrosis. This could cause the sluggish excretion Electronically signed by: Michael Loredo MD 05/23/2018 2:32 PM EDT
--- NOTE | 2018-05-23 16:59 | P.CONNP ---
History of Present Illness Consult date: 05/23/18 Primary Care Provider: Nishant Johnson DO Family Provider: Nishant Johnson DO Chief Complaint: fatigue History of Present Illness: This patient is an 82-year-old -Citizen Of [place] male who is a very poor historian. Patient apparently does have a history of hypertension with a mention of COPD and previous excess alcohol intake. Current status unknown. Patient noted to have had a previous creatinine level of 0.[address] scan performed during this admission said to show evidence of bilateral hydronephrosis despite bladder decompression with Barreto catheter. It was mentioned that the hydronephrosis was on a prior CT scan done 3 weeks ago but cannot locate that report in the system.. His creatinine level on presentation was 11.63 with a potassium initially 5.7 subsequently worsening to 7.2 now improved to 4.4. Patient was given 80 mg of furosemide 1. Since admission the patient has made 4 L of urine plus and his creatinine is now improved to 9.5. Very difficult to obtain a history from this patient in regard to any previous urological follow-up. No apparent history of NSAID use his prior to admission but I am not certain if this is a reliable response. Review of Systems other (Patient is a very poor historian despite appearing alert.) [facility] - History History Provided By: Patient, Press Catcher / EMT - Medical / Surgical Hx Neg / Unobtainable Medical Problems Denied: Unable to Obtain - Medical History Medical History: Medical History (Last Reviewed 05/23/18 @ 14:06 by Halina Amezquita, JACK) COPD (chronic obstructive pulmonary disease) Hypertension - Surgical History Surgical History: Surgical History (Last Reviewed 05/22/18 @ 22:26 by JENNIE Bautista) H/O hernia repair - Tobacco History Second Hand Smoke Exposure: Yes Tobacco Use In Past 30 Days: Yes Smoking Status: Light tobacco smoker Tobacco Type: Cigarettes - Alcohol History How Often Do You Have a Drink Containing Alcohol: Never - Travel History Recent Travel in the [place] Within the Last 8 Weeks: No Recent Travel Out of the Country Within the Last 8 Weeks: No - Immunization History Tetanus Immunization: Unsure Hx Influenza Vaccine This Season: Yes Medications and Allergies Active Medications: Active Medications Albuterol (Duoneb Neb (Prn)) 1 ampul NEB Q2HR NEB PRN PRN Reason: WHEEZING Chlorhexidine Gluconate (Chlorhexidine 2% Cloth) 3 pack TOPICAL DAILY@0400 [facility] Stop: 05/28/18 03:59 Last Admin: 05/23/18 09:27 Dose: Not Given Chlorhexidine Gluconate (Chlorhexidine 2% Cloth) 3 pack TOPICAL DAILY@0400 PRN PRN Reason: Extra cloth needed Stop: 05/28/18 03:59 Dextrose (D50w Vial) 50 ml IV.PUSH UNSCH [facility] Doxepin HCl (Sinequan) 25 mg PO DAILY [facility] Last Admin: 05/23/18 09:27 Dose: Not Given Heparin Sodium (Porcine) (Heparin Inj) 5,000 units SQ Q12H [facility] Last Admin: 05/23/18 11:44 Dose: 5,000 units Sodium Bicarbonate 150 meq/ (Sterile Water) 1,000 mls @ 75 mls/hr IV.CONT .[id number] [facility] Last Admin: 05/23/18 09:15 Dose: 75 mls/hr Labetalol HCl (Trandate Inj) 20 mg IV.PUSH Q20M PRN PRN Reason: sbp > 160 Last Admin: 05/23/18 05:31 Dose: 20 mg Ondansetron HCl (Zofran Inj) 4 mg IV.PUSH Q6H PRN PRN Reason: NAUSEA OR VOMITING Sodium Chloride (Ns Flush) 2 ml IV.FLUSH BID [facility] Last Admin: 05/23/18 09:24 Dose: Not Given Sodium Chloride (Ns Flush) 2 ml IV.FLUSH PRN PRN PRN Reason: FLUSH AFTER USING IV ACCESS Tamsulosin HCl (Flomax) 0.4 mg PO DAILY [facility] Last Admin: 05/23/18 09:25 Dose: Not Given Allergies Allergy/AdvReac Type Severity Reaction Status Date / Time No Known Allergies Allergy Unknown Uncoded 09/18/13 09:09 Home Medications Medication Instructions Recorded Confirmed Type doxepin 25 mg PO DAILY 05/22/18 05/22/18 History gabapentin 400 mg PO DAILY 05/22/18 05/22/18 History hydrocodone-acetaminophen 1 tab PO Q4-6H PRN 05/22/18 05/22/18 History omeprazole 20 mg PO DAILY 05/22/18 05/22/18 History prednisone 10 mg PO DAILY 05/22/18 05/22/18 History tamsulosin 0.4 mg PO DAILY 05/22/18 05/22/18 History trazodone 100 mg PO DAILY 05/22/18 05/22/18 History Exam Vital signs: Vital Signs 05/22/18 19:13 05/22/18 19:20 05/22/18 19:30 Temperature 98.6 F Pulse Rate 106 H 102 H 98 H Respiratory Rate 26 H 22 18 Blood Pressure 188/97 H Pulse Oximetry 95 05/22/18 22:09 05/22/18 22:28 05/22/18 22:38 Temperature Pulse Rate 101 H Respiratory Rate 20 Blood Pressure 149/88 H Pulse Oximetry 96 97 97 05/23/18 00:06 05/23/18 01:03 05/23/18 02:13 Temperature 98.5 F Pulse Rate 106 H 112 H 100 H Respiratory Rate 20 20 20 Blood Pressure 158/108 H 167/92 H 175/90 H Pulse Oximetry 96 05/23/18 03:18 05/23/18 04:25 05/23/18 05:27 Temperature 98.5 F Pulse Rate 90 104 H 91 H Respiratory Rate 18 16 18 Blood Pressure 180/98 H 153/79 H 189/86 H Pulse Oximetry 97 05/23/18 05:32 05/23/18 08:00 05/23/18 08:34 Temperature 99.5 F Pulse Rate 80 78 Respiratory Rate 16 18 Blood Pressure 153/74 H 142/88 H Pulse Oximetry 97 100 05/23/18 09:00 Temperature Pulse Rate 78 Respiratory Rate Blood Pressure Pulse Oximetry Intake & Output 05/22/18 05/23/18 05/23/18 18:59 06:59 18:59 Intake Total 4460 / 4460 3210 / 3210 Output Total 1700 / 1700 2300 / 2300 Balance 2760 / 2760 910 / 910 Weight 52.163 kg Intake: IV 2460 / 2460 1210 / 1210 NS Inj 1,000 ML @ 120 mls/hr IV 1000 / 1000 .CONT .Q8H20M [facility] Rx#:[id number] Calcium Chloride Inj 1 GM In NS 110 / 110 Inj 100 ML @ 110 mls/hr IV.SIG ONCE ONE Rx#:[id number] Magnesium Sulfate 1 gm/D5W 100 100 / 100 ml Premix 100 ML @ 100 mls/hr IV.SIG ONCE ONE Rx#:[id number] Oral 0 / 0 Trauma Intake Amount 1999 Output: Urine Amount (Catheter) 1700 / 1700 2300 / 2300 Indwelling Urethral Catheter 1700 / 1700 2300 / 2300 Other: Date of Last Bowel Movement 05/23/18 Narrative: GENERAL: Elderly -Citizen Of [place] male. Very thin who appears chronically debilitated. SKIN: Warm and dry. HEAD: Normocephalic. EYES: No scleral icterus. No injection or drainage. NECK: Supple, trachea midline. No JVD or lymphadenopathy. CARDIOVASCULAR: Regular rate and rhythm without murmurs, gallops, or rubs. RESPIRATORY: Breath sounds equal bilaterally. No accessory muscle use. GASTROINTESTINAL: Abdomen soft, non-tender, nondistended. MUSCULOSKELETAL: No cyanosis, or edema. Results - Lab Results 05/23/18 04:15 05/23/18 12:24 Most recent lab results ABG pH 7.33 (7.380-7.420) L 05/22/18 19:50 ABG pCO2 42 mmHg (38-42) 05/22/18 19:50 ABG pO2 84 mmHg (61-120) 05/22/18 19:50 ABG HCO3 22 mmol/L (22-26) 05/22/18 19:50 Calcium 9.1 mg/dL (8.5-10.1) 05/23/18 12:24 Phosphorus 7.0 mg/dL (2.5-4.9) H D 05/23/18 12:24 Magnesium 3.1 mg/dL (1.5-2.5) H 05/23/18 04:15 - Image Kidney/bladder ultrasound: other (CT scan report reviewed.) Assessment and Plan - Assessment (1) Acute kidney failure Code(s): N17.9 - Acute kidney failure, unspecified Status: Acute Plan: I suspect the patient has acute on chronic renal insufficiency related to progressive urinary tract obstruction etiology of which is uncertain. Despite CT scan report urine output appears to be significantly out of proportion to dosage of furosemide at the patient received I believe that he currently has a postobstructive diuresis. Potassium level and creatinine levels are improving briskly. At this point in time would increase IV hydration try to avoid intravascular volume depletion. Medications should be adjusted for the patient's estimated GFR if clinically indicated. Avoid agents with significant potential for nephrotoxicity possible including NSAIDs for analgesia, iodine contrast agents. Gadolinium is contraindicated if the GFR is below 30. (2) Obstructive uropathy Code(s): N13.9 - Obstructive and reflux uropathy, unspecified Status: Chronic - Plan Recommend urological consultation for definitive management and evaluation of his obstructive uropathy. Patient's clinical presentation and course seems to be consistent with bladder outlet obstruction. Discussed with critical care. (1) Acute kidney failure Qualifiers: Acute renal failure type: unspecified Qualified Code(s): N17.9 - Acute kidney failure, unspecified
--- NOTE | 2018-05-23 17:37 | ECG ---
Date Performed: 05/22/2018 Time Performed: 19:34:54 PTAGE: 82 years EKG: SINUS TACHYCARDIA SEPTAL MYOCARDIAL INFARCTION ABNORMAL ECG PREVIOUS TRACING : 09/19/2013 03.29 Since the previous tracing, no significant change noted DOCTOR: Abdirahman Rene Interpretating Date/Time 05/23/2018 17:36:40
[2018-05-23] MEDS: Dextrose 5%/NaCl 0.45% Inj 1,000 ML IV.CONT SCH (19:08)
[2018-05-23] MEDS: traZODone 50 MG Tablet PO SCH (20:50)
[2018-05-24] MEDS: Dextrose 5%/NaCl 0.45% Inj 1,000 ML IV.CONT SCH ×3 (02:44→18:43)
[2018-05-24 05:46] LABS: Calcium 8.7 mg/dL (8.5-10.1); Carbon Dioxide 34.5 meq/L (21.0-32.0)
[2018-05-24] MEDS: Chlorhexidine Gluconate 2% 1 Pack (2 Cloths) TOPICAL SCH (05:52)
[2018-05-24] MEDS: Heparin - SQ 10,000 UNITS/ML Vial SQ SCH ×3 (10:53→21:57)
--- NOTE | 2018-05-24 13:09 | P.PNCC ---
Subjective Subjective Remarks/Hospital Course: 82yM presented to ER for shortness of breath and fatigue. very poor historian and difficult to obtain full medical history. no family at bedside to assist. remainder of history from medical record. patient does tell me that he knows he has "minor kidney problems" and has seen someone recently for this. in the ER his Cr is 11, K 6.9. CT abd/pelvis with bilateral hydronephrosis which does not appear to be obstructive in nature. radiology has compared this to a recent prior CT scan a few weeks ago from the outpatient radiology center and says it is unchanged and stable, but I do not have any records of any prior medical visit in our system to address why the CT scan was performed, or what if any intervention took place. Patient has a history of COPD on 3L o2 at home. he endorses SOB, but this appears to be stable and not new or acute. denies new cough, sputum production, fever, chills. patient endorses frequency and urgency of urination but denies urinary retention or prostate problems to me. remainder of ROS is essentially unobtainable due to his poor recollection of his medical history. 05/23: Potassium down to 5.2, now back to 7.2. Urine > 200/hr. I'll increase serum pH and aggressively diurese. Usual adjuvants added as well. Mild wheezes now and + JVD. BRADY nodule is outpatient issue and not emergent. Will discuss ureteral decompression with Nephrology Service. Subjective 05/24: Afebrile. Continues with excellent urine output. Requesting resumption of anti-psychiatric medications. Requesting physical occupational and speech therapy. He has been written for. Creatinine slowly trending downward. Noted possible mild obstructive process on nuclear medicine Lasix washout test yesterday. Objective Vital Signs / I&O: Vital Signs 05/23/18 20:00 05/23/18 20:14 05/23/18 22:00 Temperature 98.6 F Pulse Rate 88 58 L Respiratory Rate 18 Blood Pressure 165/74 H Pulse Oximetry 100 98 05/24/18 00:00 05/24/18 04:00 05/24/18 06:34 Temperature 98.5 F 98.8 F Pulse Rate 70 80 63 Respiratory Rate 11 L 18 Blood Pressure 139/67 125/71 Pulse Oximetry 100 100 05/24/18 08:00 05/24/18 09:00 05/24/18 10:36 Temperature 98.3 F Pulse Rate 71 71 Respiratory Rate 22 Blood Pressure 171/85 H Pulse Oximetry 98 100 Intake & Output 05/23/18 05/24/18 05/24/18 18:59 06:59 18:59 Intake Total 1210 / 1210 1000 / 1000 1000 / 1000 Output Total 6500 / 6500 1600 / 1600 Balance -5290 / -5290 -600 / -600 1000 / 1000 Intake: IV 1210 / 1210 1000 / 1000 1000 / 1000 D5W/1/2 NS Inj 1,000 ML @ 125 1000 / 1000 1000 / 1000 mls/hr IV.CONT .Q8H [facility] Rx#: [id number] NS Inj 1,000 ML @ 120 mls/hr IV 1000 / 1000 .CONT .Q8H20M [facility] Rx#:[id number] Calcium Chloride Inj 1 GM In NS 110 / 110 Inj 100 ML @ 110 mls/hr IV.SIG ONCE ONE Rx#:[id number] Magnesium Sulfate 1 gm/D5W 100 100 / 100 ml Premix 100 ML @ 100 mls/hr IV.SIG ONCE ONE Rx#:[id number] Oral 0 / 0 Output: Urine Amount (Catheter) 6500 / 6500 1600 / 1600 Indwelling Urethral Catheter 6500 / 6500 1600 / 1600 Other: Date of Last Bowel Movement 05/23/18 05/23/18 05/23/18 Result Diagrams: 05/23/18 04:15 05/24/18 04:02 Imaging: Chest X-Ray 05/22/18 19:08 CONCLUSION: There is a new parenchymal opacity in the right lower lung zone, new compared to the chest CT performed approximately one month ago. There is also a new small right pleural effusion. Abdomen/Pelvis CT 05/22/18 21:04 CONCLUSION: 1. No specific abnormality is identified to explain the abdominal pain. Barreto catheter is present within the urinary bladder but there continues to be bilateral hydronephrosis and hydroureter similar to the a prior study from 3 weeks ago. 2. Nonacute findings include cholelithiasis and severe atherosclerotic disease. Chest CT 05/22/18 21:04 CONCLUSION: 1. There is volume loss and mild airspace opacity in the right upper lobe, right middle lobe, and left upper lobe. Material is also present within the bronchus intermedius suggesting aspiration as a potential cause. These findings are new since the prior study. 2. New small right pleural effusion. 3. The left upper lobe 8 mm spiculated nodule remains present and will ultimately require further evaluation as previously recommended. 4. Severe atherosclerotic disease and coronary artery calcification. Renal Scan w/Medication NM 05/23/18 00:00 CONCLUSION: 1. Slow parenchymal washout without fixed obstruction. Ureters appear prominent suggesting mild hydronephrosis. This could cause the sluggish excretion Objective Remarks: GENERAL: 82-year-old AA male, lying in bed in no acute distress HEENT: Normocephalic. Atraumatic. Pupils equal, round, reactive, conjugate. Mucous membranes are moist and pink. Oropharynx without erythema NECK: Trachea is midline. Airway widely patent. + JVD. CHEST: Equal chest rise. Nasal cannula oxygen. Positive end expiratory wheeze. CARDIOVASCULAR: RRR. S1, S2 predose for without murmur ABDOMEN: Soft, nontender, nondistended. Scaphoid. No guarding. BS active. MUSCULOSKELETAL: Pulses 2+. No peripheral edema. Well perfused. NEUROLOGICAL: Cranial nerves II through XII appear to be grossly intact. Follows commands in all 4 extremities. No focal deficits. Conversant. Assessment and Plan - Assessment and Plan Plan: Neuro/Psych: Resolving uremic encephalopathy Chronic narcotic use Acetaminophen 650 mg by mouth every 6 hours as needed fever Hydrocodone/acetaminophen 5/3 4 tablet every 6 hours. Pain 1 through 10. Patient is on 08/2025 every 4-6 hours at home Continue trazodone but at 50 mg at night. On 100 mg daily at home. Continue doxepin 25 mg daily. Decrease gabapentin to 100 mg twice daily. 400 mg daily at home. CV: Atherosclerotic vascular disease including the aorta Essential hypertension Currently on D5 one half normal saline at 125 cc an hour. Not requiring vasopressors and/or antihypertensives. 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 Left upper lobe pulmonary nodule stable at 8 mm GI: Gastroesophageal reflux disease Hypoalbuminemia Cholelithiasis Hiatal hernia Advance diet as tolerated per speech therapy Pantoprazole for GI prophylaxis. On omeprazole 20 mg daily at home. Docusate sodium/senna 1 tablet twice daily for bowel or : BPH Urinary retention Nuclear medicine Lasix washout revealed mild hydronephrosis/'s slow clearance from the parenchymal images. Followed by nephrology. Continue tamsulosin 0.4 mg daily. Maintain Barreto catheter Endo: Chronic prednisone use? Restart prednisone 10 mg daily. Sliding-scale insulin with Accu-Cheks to maintain euglycemia/aspart every 6 hours low regimen Renal: Acute kidney injury Left renal cyst Bilateral hydronephrosis/hydroureter Followed by Dr. Granados/nephrology. Currently on D5 one half normal saline at 125 cc an hour. Urine eosinophils negative Creatinine 0.7 0.6. Recheck in a.m. Heme: History of left piriform sinus carcinoma 2006 Normocytic anemia Monitor CBC daily. Follow trends No indication for transfusion of blood products at this time ID: Monitor for signs and symptomatology of infection MSK: Scoliosis Low vitamin D 25 PT/OT evaluate and treat FEN: Hypernatremia Hyper magnesium Hyperphosphatemia Currently on hypotonic crystalloid supplementation. Recheck BMP mag and phosphate a.m. 05/25 [place] -Utilize peripheral IV. Central line if indicated Prophylaxis -GI pantoprazole -DVT SCD/heparin subcu Level 2 follow-up. Patient is stable from a critical care's medicine standpoint. Assign care to hospitalist in a.m. 05/25/2018.
[2018-05-24] MEDS ORDERED: Dextrose 50% in Water 50 ML Vial IV.PUSH PRN (13:11)
--- NOTE | 2018-05-24 13:50 | P.PNNP ---
Subjective Interval history: Pt overall says he is feeling OK. Is requesting rectal tube to be discontinued and repeat swallow eval. <Sigrid Thompson - Last Filed: 05/24/18 13:45> Physical Exam Vital signs: Vital Signs 05/23/18 20:00 05/23/18 20:14 05/23/18 22:00 Temperature 98.6 F Pulse Rate 88 58 L Respiratory Rate 18 Blood Pressure 165/74 H Pulse Oximetry 100 98 05/24/18 00:00 05/24/18 04:00 05/24/18 06:34 Temperature 98.5 F 98.8 F Pulse Rate 70 80 63 Respiratory Rate 11 L 18 Blood Pressure 139/67 125/71 Pulse Oximetry 100 100 05/24/18 08:00 05/24/18 09:00 05/24/18 10:36 Temperature 98.3 F Pulse Rate 71 71 Respiratory Rate 22 Blood Pressure 171/85 H Pulse Oximetry 98 100 Intake & Output 05/23/18 05/24/18 05/24/18 18:59 06:59 18:59 Intake Total 1210 / 1210 1000 / 1000 1000 / 1000 Output Total 6500 / 6500 1600 / 1600 Balance -5290 / -5290 -600 / -600 1000 / 1000 Intake: IV 1210 / 1210 1000 / 1000 1000 / 1000 D5W/1/2 NS Inj 1,000 ML @ 125 1000 / 1000 1000 / 1000 mls/hr IV.CONT .Q8H REPLACED BY [facility] Rx#: [id number] NS Inj 1,000 ML @ 120 mls/hr IV 1000 / 1000 .CONT .Q8H20M REPLACED BY [facility] Rx#:[id number] Calcium Chloride Inj 1 GM In NS 110 / 110 Inj 100 ML @ 110 mls/hr IV.SIG ONCE ONE Rx#:[id number] Magnesium Sulfate 1 gm/D5W 100 100 / 100 ml Premix 100 ML @ 100 mls/hr IV.SIG ONCE ONE Rx#:[id number] Oral 0 / 0 Output: Urine Amount (Catheter) 6500 / 6500 1600 / 1600 Indwelling Urethral Catheter 6500 / 6500 1600 / 1600 Other: Date of Last Bowel Movement 05/23/18 05/23/18 05/23/18 - Constitutional no acute distress - Routine HEENT Exam Head: Present: normocephalic, atraumatic - Routine Neck Exam Present: supple - Routine Respiratory Exam Present: CTA bilaterally - Routine Cardiovascular Exam Present: RRR, S1, S2 - Routine Abdominal Exam Present: soft - Routine Skin Exam Present: intact - Routine Neurological Exam Present: alert, oriented X3 - Detailed Neurological Exam: Coma Scale Verbal Response: Oriented - Routine Psychiatric Exam Present: normal affect - Urinary Catheter Management Indwelling Urethral Catheter Cath placed during this visit: yes Reason for continuing: Hourly intake/output Insertion date: 05/22/18 <Sigrid Thompson - Last Filed: 05/24/18 13:45> Vital signs: Vital Signs 05/24/18 14:40 05/24/18 15:00 05/24/18 15:01 Temperature Pulse Rate 77 86 96 H Respiratory Rate 21 35 H 41 H Blood Pressure 147/80 H 152/90 H Pulse Oximetry 100 95 99 05/24/18 15:21 05/24/18 15:28 05/24/18 15:40 Temperature Pulse Rate 55 L 74 84 Respiratory Rate 16 23 24 Blood Pressure 180/79 H 153/75 H 161/103 H Pulse Oximetry 100 100 100 05/24/18 15:45 05/24/18 15:50 05/24/18 16:00 Temperature 98.7 F Pulse Rate 81 84 56 L Respiratory Rate 27 H 61 H 23 Blood Pressure 161/100 H 120/72 155/94 H Pulse Oximetry 100 98 98 05/24/18 16:21 05/24/18 17:01 05/24/18 17:20 Temperature Pulse Rate 66 62 Respiratory Rate 29 H 15 Blood Pressure 129/80 117/60 124/68 Pulse Oximetry 98 100 05/24/18 18:00 05/24/18 18:01 05/24/18 18:20 Temperature Pulse Rate 82 76 78 Respiratory Rate 13 14 14 Blood Pressure 143/68 H 124/65 Pulse Oximetry 99 99 99 05/24/18 18:40 05/24/18 19:00 05/24/18 19:21 Temperature Pulse Rate 62 76 69 Respiratory Rate 15 12 14 Blood Pressure 142/63 H 137/67 142/90 H Pulse Oximetry 99 100 100 05/24/18 19:51 05/24/18 20:00 05/24/18 20:04 Temperature 98.6 F Pulse Rate 82 71 73 Respiratory Rate 35 H 18 23 Blood Pressure 126/80 149/70 H 149/70 H Pulse Oximetry 100 99 98 07/14/18 20:12 05/24/18 20:14 05/24/18 20:21 Temperature Pulse Rate 57 L 57 L Respiratory Rate 20 20 Blood Pressure Pulse Oximetry 100 05/24/18 21:00 05/24/18 22:00 05/24/18 22:01 Temperature Pulse Rate 68 73 79 Respiratory Rate 38 H 12 13 Blood Pressure 153/81 H 113/55 L Pulse Oximetry 99 97 97 05/24/18 23:00 05/25/18 00:00 05/25/18 00:01 Temperature 98.4 F Pulse Rate 73 69 76 Respiratory Rate 12 23 23 Blood Pressure 121/61 142/68 H 142/68 H Pulse Oximetry 100 99 99 05/25/18 01:00 05/25/18 02:00 05/25/18 03:00 Temperature Pulse Rate 68 78 78 Respiratory Rate 12 11 L 19 Blood Pressure 140/65 142/68 H 147/74 H Pulse Oximetry 99 99 100 05/25/18 04:00 05/25/18 04:10 05/25/18 05:00 Temperature 98.3 F Pulse Rate 69 92 H 77 Respiratory Rate 12 18 12 Blood Pressure 164/72 H 168/97 H Pulse Oximetry 100 99 05/25/18 06:00 05/25/18 06:01 05/25/18 07:00 Temperature Pulse Rate 61 58 L 59 L Respiratory Rate 19 18 28 H Blood Pressure 169/76 H Pulse Oximetry 99 97 99 05/25/18 07:01 05/25/18 08:00 05/25/18 08:02 Temperature 98.1 F Pulse Rate 68 68 Respiratory Rate 30 H 29 H Blood Pressure 162/77 H 152/72 H Pulse Oximetry 99 97 99 05/25/18 09:00 05/25/18 09:01 05/25/18 10:00 Temperature Pulse Rate 88 89 78 Respiratory Rate 27 H 36 H 30 H Blood Pressure 162/86 H 156/72 H Pulse Oximetry 97 98 99 05/25/18 10:58 05/25/18 11:00 05/25/18 11:50 Temperature Pulse Rate 77 79 Respiratory Rate 15 32 H 20 Blood Pressure 139/74 Pulse Oximetry 100 05/25/18 12:00 Temperature 97.6 F Pulse Rate 97 H Respiratory Rate 39 H Blood Pressure 119/65 Pulse Oximetry 100 Intake & Output 05/24/18 05/25/18 05/25/18 18:59 06:59 18:59 Intake Total 1999 / 1999 1050 / 1050 1000 / 1000 Output Total 1750 / 1750 750 / 750 Balance 250 / 250 300 / 300 1000 / 1000 Weight 55.9 kg Intake: IV 1999 1000 / 1000 1000 / 1000 D5W/1/2 NS Inj 1,000 ML @ 125 1999 / 1999 1000 / 1000 1000 / 1000 mls/hr IV.CONT .Q8H REPLACED BY [facility] Rx#: [id number] Oral Supplement 50 / 50 Output: Stool 325 / 325 Urine Amount (Catheter) 1425 / 1425 750 / 750 Indwelling Urethral Catheter 1425 / 1425 750 / 750 Other: Date of Last Bowel Movement 05/23/18 05/24/18 05/24/18 - Urinary Catheter Management Indwelling Urethral Catheter Cath placed during this visit: no <Cee Granados - Last Filed: 05/25/18 14:38> Assessment and Plan - Assessment (1) Acute kidney failure Code(s): N17.9 - Acute kidney failure, unspecified Status: Acute Qualifiers: Acute renal failure type: unspecified Qualified Code(s): N17.9 - Acute kidney failure, unspecified Plan: Suspected that the patient has acute on chronic renal insufficiency related to progressive urinary tract obstruction etiology of which is uncertain. Renal functions and metabolic status improving. UOP remains brisk. Continue on aggressive IVF. On D5 1/2NS for hypernatremia. Monitor Na. Is NPO, but if cleared by ST to encouraged po free water intake. Medications should be adjusted for the patient's estimated GFR if clinically indicated. Avoid agents with significant potential for nephrotoxicity possible including NSAIDs for analgesia, iodine contrast agents. Gadolinium is contraindicated if the GFR is below 30. (2) Obstructive uropathy Code(s): N13.9 - Obstructive and reflux uropathy, unspecified Status: Chronic (3) Vitamin D deficiency Code(s): E55.9 - Vitamin D deficiency, unspecified Status: Acute Plan: Start cholecalciferol - Plan Recommend urological consultation for definitive management and evaluation of his obstructive uropathy. Patient's clinical presentation and course seems to be consistent with bladder outlet obstruction. <Sigrid Thompson - Last Filed: 05/24/18 13:45> - Assessment (1) Acute kidney failure Code(s): N17.9 - Acute kidney failure, unspecified Status: Acute Qualifiers: Acute renal failure type: unspecified Qualified Code(s): N17.9 - Acute kidney failure, unspecified (2) Obstructive uropathy Code(s): N13.9 - Obstructive and reflux uropathy, unspecified Status: Chronic (3) Vitamin D deficiency Code(s): E55.9 - Vitamin D deficiency, unspecified Status: Acute (4) Hypertension Code(s): I10 - Essential (primary) hypertension Status: Acute - Attending Attestation The exam, history, and the medical decision-making described in the above note were completed with the assistance of the ROMEL. I reviewed and agree with the findings presented. <Cee Granados - Last Filed: 05/25/18 14:38>
[2018-05-24] MEDS: Labetalol HCl Inj 100 MG/20 ML Vial IV.PUSH PRN (15:46)
[2018-05-24] MEDS: Insulin NovoLOG Aspart Correctional Sugar Inj SQ SCH (17:38)
[2018-05-24] MEDS: Senna/Docusate Sodium 8.6/50 MG Tablet PO SCH (20:33)
[2018-05-24] MEDS: traZODone 50 MG Tablet PO SCH (20:56)
[2018-05-24] MEDS: Gabapentin 100 MG Capsule PO SCH (20:56)
[2018-05-25] MEDS: Insulin NovoLOG Aspart Correctional Sugar Inj SQ SCH ×4 (00:10→18:45)
[2018-05-25] MEDS: Dextrose 5%/NaCl 0.45% Inj 1,000 ML IV.CONT SCH ×3 (02:26→16:49)
[2018-05-25] MEDS: Chlorhexidine Gluconate 2% 1 Pack (2 Cloths) TOPICAL SCH (04:19)
[2018-05-25 06:46] LABS: Baso % (Auto) 0.1 % (0.0-2.0); Eos # (Auto) 0.2 th/mm3 (0.0-0.4); Eos % (Auto) 2.2 % (0.0-4.0); Hemoglobin 8.5 gm/dL (13.0-17.0); Lymph # (Auto) 0.9 th/mm3 (1.0-4.8); Lymph % (Auto) 12.3 % (9.0-44.0); Mean Corpuscular HGB Conc 32.8 % (32.0-36.0); Mean Corpuscular Volume 88.4 fL (80.0-100.0); Mean Platelet Volume 7.3 fL (7.0-11.0); Mono # (Auto) 0.8 th/mm3 (0.0-0.9); Mono % (Auto) 10.8 % (0.0-8.0); Neut # (Auto) 5.2 th/mm3 (1.8-7.7); Neut % (Auto) 74.6 % (16.0-70.0); Platelet Count 306 th/mm3 (150-450); Red Blood Count 2.94 mil/mm3 (4.50-5.90); Red Cell Distribution Width 18.3 % (11.6-17.2)
[2018-05-25 07:06] LABS: Albumin 2.8 g/dL (3.4-5.0); Calcium 8.7 mg/dL (8.5-10.1); Magnesium 2.1 mg/dL (1.5-2.5); Phosphorus 4.2 mg/dL (2.5-4.9); Phosphorus 4.3 mg/dL (2.5-4.9); Potassium 3.3 meq/L (3.5-5.1)
[2018-05-25] MEDS: Gabapentin 100 MG Capsule PO SCH ×2 (08:07→21:19)
[2018-05-25] MEDS: Senna/Docusate Sodium 8.6/50 MG Tablet PO SCH ×2 (08:10→21:06)
[2018-05-25] MEDS ORDERED: Hypromellose 0.3% Opth Gel 10 GM Bottle EACH EYE ONE ×2 (09:26→11:00)
[2018-05-25] MEDS: Heparin - SQ 10,000 UNITS/ML Vial SQ SCH ×2 (10:14→21:19)
--- NOTE | 2018-05-25 10:58 | P.PNNP ---
Subjective Interval history: Pt feeling OK. He is anxious to eat and drink. Diarrhea resolving. <Sgirid Thompson R - Last Filed: 05/25/18 10:52> Physical Exam Vital signs: Vital Signs 05/24/18 11:00 05/24/18 11:01 05/24/18 11:21 Temperature Pulse Rate 82 80 95 H Respiratory Rate 28 H 23 34 H Blood Pressure 142/82 H 110/56 L Pulse Oximetry 100 100 98 05/24/18 11:41 05/24/18 12:00 05/24/18 12:01 Temperature 98.3 F Pulse Rate 62 95 H 86 Respiratory Rate 19 33 H 38 H Blood Pressure 165/84 H 168/79 H 168/79 H Pulse Oximetry 99 97 98 05/24/18 12:20 05/24/18 12:41 05/24/18 12:45 Temperature Pulse Rate 91 H 88 80 Respiratory Rate 47 H 42 H 32 H Blood Pressure 141/95 H 182/82 H 168/75 H Pulse Oximetry 98 99 98 05/24/18 13:00 05/24/18 13:21 05/24/18 13:39 Temperature Pulse Rate 83 90 89 Respiratory Rate 35 H 41 H 37 H Blood Pressure 155/78 H 168/110 H 109/76 Pulse Oximetry 97 99 97 05/24/18 13:41 05/24/18 14:00 05/24/18 14:01 Temperature Pulse Rate 64 95 H 82 Respiratory Rate 30 H 33 H 31 H Blood Pressure 163/74 H 134/78 Pulse Oximetry 99 95 100 05/24/18 14:20 05/24/18 14:40 05/24/18 15:00 Temperature Pulse Rate 79 77 86 Respiratory Rate 25 H 21 35 H Blood Pressure 136/93 H 147/80 H Pulse Oximetry 100 100 95 05/24/18 15:01 05/24/18 15:21 05/24/18 15:28 Temperature Pulse Rate 96 H 55 L 74 Respiratory Rate 41 H 16 23 Blood Pressure 152/90 H 180/79 H 153/75 H Pulse Oximetry 99 100 100 05/24/18 15:40 05/24/18 15:45 05/24/18 15:50 Temperature Pulse Rate 84 81 84 Respiratory Rate 24 27 H 61 H Blood Pressure 161/103 H 161/100 H 120/72 Pulse Oximetry 100 100 98 05/24/18 16:00 05/24/18 16:21 05/24/18 17:01 Temperature 98.7 F Pulse Rate 56 L 66 Respiratory Rate 23 29 H Blood Pressure 155/94 H 129/80 117/60 Pulse Oximetry 98 98 05/24/18 17:20 05/24/18 18:00 05/24/18 18:01 Temperature Pulse Rate 62 82 76 Respiratory Rate 15 13 14 Blood Pressure 124/68 143/68 H Pulse Oximetry 100 99 99 05/24/18 18:20 05/24/18 18:40 05/24/18 19:00 Temperature Pulse Rate 78 62 76 Respiratory Rate 14 15 12 Blood Pressure 124/65 142/63 H 137/67 Pulse Oximetry 99 99 100 05/24/18 19:21 05/24/18 19:51 05/24/18 20:00 Temperature 98.6 F Pulse Rate 69 82 71 Respiratory Rate 14 35 H 18 Blood Pressure 142/90 H 126/80 149/70 H Pulse Oximetry 100 100 99 05/24/18 20:04 05/24/18 20:12 05/24/18 20:14 Temperature Pulse Rate 73 57 L Respiratory Rate 23 20 Blood Pressure 149/70 H Pulse Oximetry 98 100 05/24/18 20:21 05/24/18 21:00 05/24/18 22:00 Temperature Pulse Rate 57 L 68 73 Respiratory Rate 20 38 H 12 Blood Pressure 153/81 H Pulse Oximetry 99 97 05/24/18 22:01 05/24/18 23:00 05/25/18 00:00 Temperature 98.4 F Pulse Rate 79 73 69 Respiratory Rate 13 12 23 Blood Pressure 113/55 L 121/61 142/68 H Pulse Oximetry 97 100 99 05/25/18 00:01 05/25/18 01:00 05/25/18 02:00 Temperature Pulse Rate 76 68 78 Respiratory Rate 23 12 11 L Blood Pressure 142/68 H 140/65 142/68 H Pulse Oximetry 99 99 99 05/25/18 03:00 05/25/18 04:00 05/25/18 04:10 Temperature 98.3 F Pulse Rate 78 69 92 H Respiratory Rate 19 12 18 Blood Pressure 147/74 H 164/72 H Pulse Oximetry 100 100 05/25/18 05:00 05/25/18 06:00 05/25/18 06:01 Temperature Pulse Rate 77 61 58 L Respiratory Rate 12 19 18 Blood Pressure 168/97 H 169/76 H Pulse Oximetry 99 99 97 05/25/18 07:00 05/25/18 07:01 05/25/18 08:00 Temperature 98.1 F Pulse Rate 59 L 68 68 Respiratory Rate 28 H 30 H 29 H Blood Pressure 162/77 H 152/72 H Pulse Oximetry 99 99 97 05/25/18 08:02 05/25/18 09:00 05/25/18 09:01 Temperature Pulse Rate 88 89 Respiratory Rate 27 H 36 H Blood Pressure 162/86 H Pulse Oximetry 99 97 98 Intake & Output 05/24/18 05/25/18 05/25/18 18:59 06:59 18:59 Intake Total 2000 / 2000 1050 / 1050 1000 / 1000 Output Total 1750 / 1750 750 / 750 Balance 250 / 250 300 / 300 1000 / 1000 Weight 55.9 kg Intake: IV 2000 / 2000 1000 / 1000 1000 / 1000 D5W/1/2 NS Inj 1,000 ML @ 125 2000 / 2000 1000 / 1000 1000 / 1000 mls/hr IV.CONT .Q8H [facility] Rx#: [id number] Oral Supplement 50 / 50 Output: Stool 325 / 325 Urine Amount (Catheter) 1425 / 1425 750 / 750 Indwelling Urethral Catheter 1425 / 1425 750 / 750 Other: Date of Last Bowel Movement 05/23/18 05/24/18 05/24/18 - Constitutional no acute distress - Routine HEENT Exam Head: Present: normocephalic - Routine Respiratory Exam Present: CTA bilaterally - Routine Cardiovascular Exam Present: RRR, S1, S2 - Routine Abdominal Exam Present: soft, normoactive bowel sounds - Routine Extremities Exam Absent: edema - Routine Skin Exam Present: intact - Routine Neurological Exam Present: alert, oriented X3 - Routine Psychiatric Exam Present: normal affect - Urinary Catheter Management Indwelling Urethral Catheter Cath placed during this visit: yes Reason for continuing: Hourly intake/output Insertion date: 05/22/18 <Sigrid Thompson - Last Filed: 05/25/18 10:52> Vital signs: Vital Signs 05/26/18 14:00 05/26/18 16:00 05/26/18 16:16 Temperature Pulse Rate 115 H 115 H 105 H Respiratory Rate 18 28 H 18 Blood Pressure 118/65 Pulse Oximetry 98 05/26/18 18:00 05/26/18 20:00 05/26/18 20:01 Temperature 98.4 F Pulse Rate 118 H 134 H 132 H Respiratory Rate 34 H 41 H 41 H Blood Pressure 145/82 H 145/82 H Pulse Oximetry 81 L 96 92 L 05/26/18 21:26 05/26/18 22:00 05/27/18 00:00 Temperature 98.9 F 98.4 F Pulse Rate 101 H 107 H 95 H Respiratory Rate 16 15 18 Blood Pressure 115/59 L Pulse Oximetry 97 100 99 05/27/18 00:45 05/27/18 02:00 05/27/18 04:00 Temperature 98.4 F Pulse Rate 86 91 H 84 Respiratory Rate 15 18 20 Blood Pressure 138/66 Pulse Oximetry 100 100 05/27/18 04:01 05/27/18 04:34 05/27/18 05:56 Temperature Pulse Rate 85 91 H 84 Respiratory Rate 18 16 15 Blood Pressure 138/66 136/60 Pulse Oximetry 100 99 05/27/18 06:00 05/27/18 08:00 05/27/18 08:18 Temperature Pulse Rate 101 H 92 H 94 H Respiratory Rate 33 H 31 H 18 Blood Pressure 143/65 H Pulse Oximetry 99 99 100 05/27/18 08:23 05/27/18 10:00 05/27/18 11:20 Temperature Pulse Rate 105 H 108 H Respiratory Rate 2 L 20 17 Blood Pressure Pulse Oximetry 99 05/27/18 12:00 05/27/18 13:33 Temperature 97.5 F L Pulse Rate 108 H 108 H Respiratory Rate 17 Blood Pressure 151/70 H Pulse Oximetry 100 Intake & Output 05/26/18 05/27/18 05/27/18 18:59 06:59 18:59 Intake Total 5060 / 5060 1150 / 1150 1000 / 1000 Output Total 725 / 725 200 / 200 Balance 4335 / 4335 950 / 950 1000 / 1000 Weight 58.1 kg Intake: IV 1999 1000 / 1000 1000 / 1000 D5W/1/2 NS Inj 1,000 ML @ 125 1999 1000 / 1000 1000 / 1000 mls/hr IV.CONT .Q8H [facility] Rx#: [id number] Oral 940 / 940 150 / 150 Oral Supplement 120 / 120 Trauma Intake Amount 1999 Output: Stool 325 / 325 0 / 0 Urine Amount (Catheter) 400 / 400 200 / 200 Indwelling Urethral Catheter 400 / 400 200 / 200 Other: Date of Last Bowel Movement 05/25/18 05/25/18 05/25/18 # Bowel Movements 0 - Urinary Catheter Management Indwelling Urethral Catheter Cath placed during this visit: no <Cee Granados - Last Filed: 05/27/18 13:51> Assessment and Plan - Assessment (1) Acute kidney failure Code(s): N17.9 - Acute kidney failure, unspecified Status: Acute Qualifiers: Acute renal failure type: unspecified Qualified Code(s): N17.9 - Acute kidney failure, unspecified Plan: Suspected that the patient has acute on chronic renal insufficiency related to progressive urinary tract obstruction etiology of which is uncertain. Renal functions and metabolic status improving. UOP good. Continue on aggressive IVF. On D5 1/2NS for hypernatremia which is improving. Is NPO, but if cleared by ST to encouraged po free water intake. KCl repletion ordered by primary. Medications should be adjusted for the patient's estimated GFR if clinically indicated. Avoid agents with significant potential for nephrotoxicity possible including NSAIDs for analgesia, iodine contrast agents. Gadolinium is contraindicated if the GFR is below 30. (2) Obstructive uropathy Code(s): N13.9 - Obstructive and reflux uropathy, unspecified Status: Chronic Plan: Urological opinion recommended (3) Vitamin D deficiency Code(s): E55.9 - Vitamin D deficiency, unspecified Status: Acute Plan: Start cholecalciferol once off NPO (4) Hypertension Code(s): I10 - Essential (primary) hypertension Status: Acute - Plan Labetalol on PRN list. Once cleared for po, can adjust regimen further. <Sigrid Thompson - Last Filed: 05/25/18 10:52> - Assessment (1) Acute kidney failure Code(s): N17.9 - Acute kidney failure, unspecified Status: Acute Qualifiers: Acute renal failure type: unspecified Qualified Code(s): N17.9 - Acute kidney failure, unspecified (2) Obstructive uropathy Code(s): N13.9 - Obstructive and reflux uropathy, unspecified Status: Chronic (3) Vitamin D deficiency Code(s): E55.9 - Vitamin D deficiency, unspecified Status: Acute (4) Hypertension Code(s): I10 - Essential (primary) hypertension Status: Acute - Attending Attestation The exam, history, and the medical decision-making described in the above note were completed with the assistance of the PAOrestes. I reviewed and agree with the findings presented. I attest that I had a [id number] encounter with the patient on the same day, and personally performed and documented my assessment and findings in the medical record. <Cee Granados - Last Filed: 05/27/18 13:51>
--- NOTE | 2018-05-25 12:52 | P.CONFP ---
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 - Medical / Surgical Hx Neg / Unobtainable Medical Problems Denied: Unable to Obtain - Medical History Medical History: Medical History (Last Reviewed 05/25/18 @ 10:32 by Zoran Richards) COPD (chronic obstructive pulmonary disease) Hypertension - Surgical History Surgical History: Surgical History (Last Reviewed 05/25/18 @ 10:32 by Zoran Richards) H/O hernia repair - Tobacco History Second Hand Smoke Exposure: Yes Tobacco Use In Past 30 Days: Yes Smoking Status: Light tobacco smoker Tobacco Type: Cigarettes - Alcohol History How Often Do You Have a Drink Containing Alcohol: Never - Travel History Recent Travel in the [place] Within the Last 8 Weeks: No Recent Travel Out of the Country Within the Last 8 Weeks: No - Immunization History Tetanus Immunization: Unsure Hx Influenza Vaccine This Season: Yes Medications and Allergies Active Medications: Active Medications Acetaminophen (Tylenol Liq) 650 mg PO Q6H PRN PRN Reason: FEVER Hydrocodone Bitart/Acetaminophen ([place] 5/325) 1 tab PO Q6H PRN PRN Reason: PAIN SCALE 1 TO 10 Last Admin: 05/25/18 10:22 Dose: 1 tab Albuterol (Duoneb Neb (Lashae)) 1 ampul NEB Q4HR NEB LASHAE Last Admin: 05/25/18 11:49 Dose: 1 ampul Albuterol (Albuterol Neb (Prn)) 2.5 mg NEB Q2HR NEB PRN PRN Reason: DYSPNEA Budesonide (Pulmocort Respule Neb) 0.5 mg NEB Q12HR NEB LASHAE Last Admin: 05/25/18 07:59 Dose: 0.5 mg Chlorhexidine Gluconate (Chlorhexidine 2% Cloth) 3 pack TOPICAL DAILY@0400 LASHAE Stop: 05/28/18 03:59 Last Admin: 05/25/18 04:19 Dose: 3 pack Chlorhexidine Gluconate (Chlorhexidine 2% Cloth) 3 pack TOPICAL DAILY@0400 PRN PRN Reason: Extra cloth needed Stop: 05/28/18 03:59 Dextrose (D50w Vial) 50 ml IV.PUSH UNSCH [facility] Dextrose (D50w Vial) 50 ml IV.PUSH UNSCH PRN PRN Reason: PER HYPOGLYCEMIA PROTOCOL Doxepin HCl (Sinequan) 25 mg PO DAILY [facility] Last Admin: 05/25/18 08:07 Dose: 25 mg Gabapentin (Neurontin) 100 mg PO BID [facility] Last Admin: 05/25/18 08:07 Dose: 100 mg Glucagon (Glucagon Inj) 1 mg OTHER PRN PRN PRN Reason: for Hypoglycemia Protocol Heparin Sodium (Porcine) (Heparin Inj) 5,000 units SQ Q12H [facility] Last Admin: 05/25/18 10:14 Dose: 5,000 units Dextrose/Sodium Chloride (D5w/1/2 Ns Inj) 1,000 mls @ 125 mls/hr IV.CONT .Q8H [facility] Last Admin: 05/25/18 10:22 Dose: 125 mls/hr Insulin Aspart (Novolog Insulin Suppl Scale Inj) 0 unit SQ Q6HR [facility]; Protocol Last Admin: 05/25/18 12:11 Dose: Not Given Labetalol HCl (Trandate Inj) 20 mg IV.PUSH Q20M PRN PRN Reason: sbp > 160 Last Admin: 05/24/18 15:46 Dose: 20 mg Ondansetron HCl (Zofran Inj) 4 mg IV.PUSH Q6H PRN PRN Reason: NAUSEA OR VOMITING Pantoprazole Sodium (Protonix) 40 mg PO DAILY [facility] Last Admin: 05/25/18 08:07 Dose: 40 mg Senna/Docusate Sodium (Denise-Colace) 1 tab PO BID [facility] Last Admin: 05/25/18 08:10 Dose: Not Given Sodium Chloride (Ns Flush) 2 ml IV.FLUSH BID [facility] Last Admin: 05/25/18 08:09 Dose: 2 ml Sodium Chloride (Ns Flush) 2 ml IV.FLUSH PRN PRN PRN Reason: FLUSH AFTER USING IV ACCESS Tamsulosin HCl (Flomax) 0.4 mg PO DAILY [facility] Last Admin: 05/25/18 08:07 Dose: 0.4 mg Trazodone HCl (Desyrel) 50 mg PO HS [facility] Last Admin: 05/24/18 20:56 Dose: 50 mg Vitamin D (Vitamin D3) 2,000 unit PO DAILY [facility] Last Admin: 05/25/18 08:07 Dose: 2,000 unit Allergies Allergy/AdvReac Type Severity Reaction Status Date / Time No Known Allergies Allergy Unknown Uncoded 09/18/13 09:09 Home Medications Medication Instructions Recorded Confirmed Type doxepin 25 mg PO DAILY 05/22/18 05/22/18 History gabapentin 400 mg PO DAILY 05/22/18 05/22/18 History hydrocodone-acetaminophen 1 tab PO Q4-6H PRN 05/22/18 05/22/18 History omeprazole 20 mg PO DAILY 05/22/18 05/22/18 History prednisone 10 mg PO DAILY 05/22/18 05/22/18 History tamsulosin 0.4 mg PO DAILY 05/22/18 05/22/18 History trazodone 100 mg PO DAILY 05/22/18 05/22/18 History Exam Vital signs: Vital Signs 05/24/18 13:00 05/24/18 13:21 05/24/18 13:39 Temperature Pulse Rate 83 90 89 Respiratory Rate 35 H 41 H 37 H Blood Pressure 155/78 H 168/110 H 109/76 Pulse Oximetry 97 99 97 05/24/18 13:41 05/24/18 14:00 05/24/18 14:01 Temperature Pulse Rate 64 95 H 82 Respiratory Rate 30 H 33 H 31 H Blood Pressure 163/74 H 134/78 Pulse Oximetry 99 95 100 05/24/18 14:20 05/24/18 14:40 05/24/18 15:00 Temperature Pulse Rate 79 77 86 Respiratory Rate 25 H 21 35 H Blood Pressure 136/93 H 147/80 H Pulse Oximetry 100 100 95 05/24/18 15:01 05/24/18 15:21 05/24/18 15:28 Temperature Pulse Rate 96 H 55 L 74 Respiratory Rate 41 H 16 23 Blood Pressure 152/90 H 180/79 H 153/75 H Pulse Oximetry 99 100 100 05/24/18 15:40 05/24/18 15:45 05/24/18 15:50 Temperature Pulse Rate 84 81 84 Respiratory Rate 24 27 H 61 H Blood Pressure 161/103 H 161/100 H 120/72 Pulse Oximetry 100 100 98 05/24/18 16:00 05/24/18 16:21 05/24/18 17:01 Temperature 98.7 F Pulse Rate 56 L 66 Respiratory Rate 23 29 H Blood Pressure 155/94 H 129/80 117/60 Pulse Oximetry 98 98 05/24/18 17:20 05/24/18 18:00 05/24/18 18:01 Temperature Pulse Rate 62 82 76 Respiratory Rate 15 13 14 Blood Pressure 124/68 143/68 H Pulse Oximetry 100 99 99 05/24/18 18:20 05/24/18 18:40 05/24/18 19:00 Temperature Pulse Rate 78 62 76 Respiratory Rate 14 15 12 Blood Pressure 124/65 142/63 H 137/67 Pulse Oximetry 99 99 100 05/24/18 19:21 05/24/18 19:51 05/24/18 20:00 Temperature 98.6 F Pulse Rate 69 82 71 Respiratory Rate 14 35 H 18 Blood Pressure 142/90 H 126/80 149/70 H Pulse Oximetry 100 100 99 05/24/18 20:04 05/24/18 20:12 05/24/18 20:14 Temperature Pulse Rate 73 57 L Respiratory Rate 23 20 Blood Pressure 149/70 H Pulse Oximetry 98 100 05/24/18 20:21 05/24/18 21:00 05/24/18 22:00 Temperature Pulse Rate 57 L 68 73 Respiratory Rate 20 38 H 12 Blood Pressure 153/81 H Pulse Oximetry 99 97 05/24/18 22:01 05/24/18 23:00 05/25/18 00:00 Temperature 98.4 F Pulse Rate 79 73 69 Respiratory Rate 13 12 23 Blood Pressure 113/55 L 121/61 142/68 H Pulse Oximetry 97 100 99 05/25/18 00:01 05/25/18 01:00 05/25/18 02:00 Temperature Pulse Rate 76 68 78 Respiratory Rate 23 12 11 L Blood Pressure 142/68 H 140/65 142/68 H Pulse Oximetry 99 99 99 05/25/18 03:00 05/25/18 04:00 05/25/18 04:10 Temperature 98.3 F Pulse Rate 78 69 92 H Respiratory Rate 19 12 18 Blood Pressure 147/74 H 164/72 H Pulse Oximetry 100 100 05/25/18 05:00 05/25/18 06:00 05/25/18 06:01 Temperature Pulse Rate 77 61 58 L Respiratory Rate 12 19 18 Blood Pressure 168/97 H 169/76 H Pulse Oximetry 99 99 97 05/25/18 07:00 05/25/18 07:01 05/25/18 08:00 Temperature 98.1 F Pulse Rate 59 L 68 68 Respiratory Rate 28 H 30 H 29 H Blood Pressure 162/77 H 152/72 H Pulse Oximetry 99 99 97 05/25/18 08:02 05/25/18 09:00 05/25/18 09:01 Temperature Pulse Rate 88 89 Respiratory Rate 27 H 36 H Blood Pressure 162/86 H Pulse Oximetry 99 97 98 05/25/18 10:00 05/25/18 10:58 05/25/18 11:00 Temperature Pulse Rate 78 77 Respiratory Rate 30 H 15 32 H Blood Pressure 156/72 H 139/74 Pulse Oximetry 99 100 05/25/18 11:50 05/25/18 12:00 Temperature 97.6 F Pulse Rate 79 97 H Respiratory Rate 20 39 H Blood Pressure 119/65 Pulse Oximetry 100 Intake & Output 05/24/18 05/25/18 05/25/18 18:59 06:59 18:59 Intake Total 2000 / 1999 1050 / 1050 1000 / 1000 Output Total 1750 / 1750 750 / 750 Balance 250 / 250 300 / 300 1000 / 1000 Weight 55.9 kg Intake: IV 2000 / 1999 1000 / 1000 1000 / 1000 D5W/1/2 NS Inj 1,000 ML @ 125 2000 / 2000 1000 / 1000 1000 / 1000 mls/hr IV.CONT .Q8H [facility] Rx#: [id number] Oral Supplement 50 / 50 Output: Stool 325 / 325 Urine Amount (Catheter) 1425 / 1425 750 / 750 Indwelling Urethral Catheter 1425 / 1425 750 / 750 Other: Date of Last Bowel Movement 05/23/18 05/24/18 05/24/18 - Constitutional no acute distress - Routine HEENT Exam Head: Present: normocephalic, atraumatic Eye: Present: EOMI, PERRL ENT: Present: mucous membranes moist - Routine Neck Exam Present: supple - Routine Respiratory Exam Present: decreased breath sounds, CTA bilaterally, diminished air movement - Routine Cardiovascular Exam Present: RRR - Routine Abdominal Exam Present: soft, normoactive bowel sounds - Routine Skin Exam Present: intact - Routine Neurological Exam Present: oriented X3 Results - Labs Result diagrams: 05/25/18 05:28 05/25/18 05:28 Abnormal lab results 05/24/18 05/24/18 05/25/18 Range/Units 17:34 23:40 05:28 RBC 2.94 L (4.50-5.90) mil/mm3 Hgb 8.5 L (13.0-17.0) gm/dL Hct 26.0 L (39.0-51.0) % RDW 18.3 H (11.6-17.2) % Neut % (Auto) 74.6 H (16.0-70.0) % [place] % (Auto) 10.8 H (0.0-8.0) % Lymph # (Auto) 0.9 L (1.0-4.8) th/mm3 Sodium (136-145) meq/L Potassium (3.5-5.1) meq/L Chloride (98-107) meq/L BUN (7-18) mg/dL Creatinine (0.60-1.30) mg/dL Estimated GFR (>89) mL/min POC Glucose 197 H 145 H (68-110) mg/dl Random Glucose (74-106) mg/dL Albumin (3.4-5.0) g/dL 05/25/18 05/25/18 05/25/18 Range/Units 05:28 05:59 11:58 RBC (4.50-5.90) mil/mm3 Hgb (13.0-17.0) gm/dL Hct (39.0-51.0) % RDW (11.6-17.2) % Neut % (Auto) (16.0-70.0) % [place] % (Auto) (0.0-8.0) % Lymph # (Auto) (1.0-4.8) th/mm3 Sodium 148 H (136-145) meq/L Potassium 3.3 L (3.5-5.1) meq/L Chloride 108 H (98-107) meq/L BUN 52 H (7-18) mg/dL Creatinine 5.76 H (0.60-1.30) mg/dL Estimated GFR 12 L (>89) mL/min POC Glucose 120 H 134 H (68-110) mg/dl Random Glucose 110 H (74-106) mg/dL Albumin 2.8 L (3.4-5.0) g/dL Short CBC 05/25/18 Range/Units 05:28 WBC 7.0 (4.0-11.0) th/mm3 Hgb 8.5 L (13.0-17.0) gm/dL Hct 26.0 L (39.0-51.0) % Plt Count 306 (150-450) th/mm3 BMP 05/25/18 05:28 Sodium 148 H Potassium 3.3 L Chloride 108 H Carbon Dioxide 30.0 BUN 52 H Creatinine 5.76 H Calcium 8.7 Liver Function 05/25/18 Range/Units 05:28 Albumin 2.8 L (3.4-5.0) g/dL Assessment and Plan - Assessment (1) Acute exacerbation of COPD with asthma Code(s): J44.1 - Chronic obstructive pulmonary disease with (acute) exacerbation ; J45.901 - Unspecified asthma with (acute) exacerbation Status: Acute (2) Acute kidney failure Code(s): N17.9 - Acute kidney failure, unspecified Status: Acute Qualifiers: Acute renal failure type: unspecified Qualified Code(s): N17.9 - Acute kidney failure, unspecified (3) Hypertension Code(s): I10 - Essential (primary) hypertension Status: Acute - Assessment and Plan potassium low will supplement orally
[2018-05-25] MEDS: traZODone 50 MG Tablet PO SCH (21:19)
[2018-05-26] MEDS: Insulin NovoLOG Aspart Correctional Sugar Inj SQ SCH ×4 (00:50→23:42)
[2018-05-26] MEDS: Dextrose 5%/NaCl 0.45% Inj 1,000 ML IV.CONT SCH ×3 (02:11→20:27)
[2018-05-26] MEDS: Chlorhexidine Gluconate 2% 1 Pack (2 Cloths) TOPICAL SCH (04:02)
[2018-05-26 07:33] LABS: Albumin 2.3 g/dL (3.4-5.0); Calcium 7.9 mg/dL (8.5-10.1); Carbon Dioxide 26.5 meq/L (21.0-32.0); Phosphorus 4.6 mg/dL (2.5-4.9); Potassium 3.7 meq/L (3.5-5.1)
[2018-05-26] MEDS: Senna/Docusate Sodium 8.6/50 MG Tablet PO SCH ×2 (09:08→20:31)
[2018-05-26] MEDS: Gabapentin 100 MG Capsule PO SCH ×2 (09:08→20:31)
--- NOTE | 2018-05-26 11:23 | P.PNNP ---
Subjective Interval history: Patient had no verbal complaints today. Oral intake appears to be adequate. Physical Exam Vital signs: Vital Signs 05/25/18 11:50 05/25/18 12:00 05/25/18 13:00 Temperature 97.6 F Pulse Rate 79 97 H 99 H Respiratory Rate 20 39 H 35 H Blood Pressure 119/65 116/69 Pulse Oximetry 100 96 05/25/18 14:00 05/25/18 14:54 05/25/18 15:00 Temperature Pulse Rate 80 86 84 Respiratory Rate 13 20 24 Blood Pressure 99/50 L 112/60 Pulse Oximetry 100 100 05/25/18 16:00 05/25/18 18:00 05/25/18 20:00 Temperature 98.3 F 98.2 F Pulse Rate 89 107 H 85 Respiratory Rate 30 H 26 H Blood Pressure 122/64 121/61 Pulse Oximetry 96 96 98 05/25/18 20:48 05/25/18 22:00 05/25/18 23:55 Temperature Pulse Rate 84 91 H 91 H Respiratory Rate 18 18 Blood Pressure Pulse Oximetry 100 05/26/18 00:00 05/26/18 00:51 05/26/18 02:00 Temperature 97.8 F Pulse Rate 75 92 H Respiratory Rate 15 13 Blood Pressure 167/75 H Pulse Oximetry 100 05/26/18 04:00 05/26/18 04:38 05/26/18 06:00 Temperature 98 F Pulse Rate 75 95 H 80 Respiratory Rate 25 H 20 Blood Pressure 128/63 Pulse Oximetry 99 98 05/26/18 08:00 05/26/18 09:27 Temperature 98.3 F Pulse Rate 80 103 H Respiratory Rate 20 18 Blood Pressure 161/93 H Pulse Oximetry 96 Intake & Output 05/25/18 05/26/18 05/26/18 18:59 06:59 18:59 Intake Total 2720 / 2720 1220 / 1220 1000 / 1000 Output Total 550 / 550 75 / 75 Balance 2170 / 2170 1145 / 1145 1000 / 1000 Weight 57.2 kg Intake: IV 1999 / 1999 1000 / 1000 1000 / 1000 D5W/1/2 NS Inj 1,000 ML @ 125 2000 / 2000 1000 / 1000 1000 / 1000 mls/hr IV.CONT .Q8H [facility] Rx#: [id number] Oral 720 / 720 100 / 100 Oral Supplement 120 / 120 Output: Urine Amount (Catheter) 550 / 550 75 / 75 Indwelling Urethral Catheter 550 / 550 75 / 75 Other: Date of Last Bowel Movement 05/24/18 05/25/18 Narrative: GENERAL: Patient lying comfortably in bed. Not in respiratory distress. SKIN: Warm and dry. HEAD: Normocephalic. EYES: No scleral icterus. No injection or drainage. NECK: Supple, trachea midline. No JVD or lymphadenopathy. CARDIOVASCULAR: Regular rate and rhythm without murmurs, gallops, or rubs. RESPIRATORY: Breath sounds equal bilaterally. No accessory muscle use. GASTROINTESTINAL: Abdomen soft, non-tender, nondistended. MUSCULOSKELETAL: No cyanosis, or edema. - Urinary Catheter Management Indwelling Urethral Catheter Cath placed during this visit: yes Reason for continuing: Acute urinary retention Insertion date: 05/22/18 Assessment and Plan - Assessment (1) Acute kidney failure Code(s): N17.9 - Acute kidney failure, unspecified Status: Acute Qualifiers: Acute renal failure type: unspecified Qualified Code(s): N17.9 - Acute kidney failure, unspecified Plan: Suspected that the patient has acute on chronic renal insufficiency related to progressive urinary tract obstruction etiology of which is uncertain. The patient's creatinine level deteriorated today despite continued IV hydration. Etiology uncertain. Barreto catheter was flushed. Repeat renal panel tomorrow. Medications should be adjusted for the patient's estimated GFR if clinically indicated. Avoid agents with significant potential for nephrotoxicity possible including NSAIDs for analgesia, iodine contrast agents. Gadolinium is contraindicated if the GFR is below 30. (2) Obstructive uropathy Code(s): N13.9 - Obstructive and reflux uropathy, unspecified Status: Chronic Plan: Urological opinion recommended (3) Vitamin D deficiency Code(s): E55.9 - Vitamin D deficiency, unspecified Status: Acute Plan: Start cholecalciferol once off NPO (4) Hypertension Code(s): I10 - Essential (primary) hypertension Status: Acute - Plan Labetalol on PRN list. Once cleared for po, can adjust regimen further.
[2018-05-26] MEDS: Heparin - SQ 10,000 UNITS/ML Vial SQ SCH ×2 (13:57→23:41)
[2018-05-26] MEDS: traZODone 50 MG Tablet PO SCH (20:30)
--- NOTE | 2018-05-26 21:44 | P.PNFP ---
Subjective Interval history: cant sleep Results - Labs Result diagrams: 05/25/18 05:28 05/26/18 06:46 Abnormal lab results 05/25/18 05/26/18 05/26/18 Range/Units 23:38 05:10 06:46 Chloride 109 H (98-107) meq/L BUN 46 H (7-18) mg/dL Creatinine 6.65 H (0.60-1.30) mg/dL Estimated GFR 10 L (>89) mL/min POC Glucose 123 H 119 H (68-110) mg/dl Random Glucose 110 H (74-106) mg/dL Calcium 7.9 L D (8.5-10.1) mg/dL Albumin 2.3 L (3.4-5.0) g/dL 05/26/18 Range/Units 12:07 Chloride (98-107) meq/L BUN (7-18) mg/dL Creatinine (0.60-1.30) mg/dL Estimated GFR (>89) mL/min POC Glucose 111 H (68-110) mg/dl Random Glucose (74-106) mg/dL Calcium (8.5-10.1) mg/dL Albumin (3.4-5.0) g/dL BMP 05/26/18 06:46 Sodium 144 Potassium 3.7 Chloride 109 H Carbon Dioxide 26.5 BUN 46 H Creatinine 6.65 H Calcium 7.9 L D Liver Function 05/26/18 Range/Units 06:46 Albumin 2.3 L (3.4-5.0) g/dL Physical Exam Vital signs: Vital Signs 05/25/18 22:00 05/25/18 23:00 05/25/18 23:55 Temperature Pulse Rate 91 H 83 91 H Respiratory Rate 21 18 18 Blood Pressure 138/62 142/59 H Pulse Oximetry 95 98 05/26/18 00:00 05/26/18 00:01 05/26/18 00:51 Temperature 97.8 F Pulse Rate 75 78 Respiratory Rate 15 16 13 Blood Pressure 167/75 H 167/75 H Pulse Oximetry 100 100 05/26/18 01:01 05/26/18 02:00 05/26/18 03:00 Temperature Pulse Rate 70 92 H 84 Respiratory Rate 13 30 H 12 Blood Pressure 122/58 L 146/76 H 108/54 L Pulse Oximetry 99 100 97 05/26/18 04:00 05/26/18 04:38 05/26/18 05:12 Temperature 98 F Pulse Rate 75 95 H 86 Respiratory Rate 25 H 20 22 Blood Pressure 128/63 149/69 H Pulse Oximetry 99 99 05/26/18 06:00 05/26/18 07:00 05/26/18 08:00 Temperature 98.3 F Pulse Rate 80 83 80 Respiratory Rate 17 18 20 Blood Pressure 148/71 H 149/65 H 161/93 H Pulse Oximetry 98 99 89 L 05/26/18 09:00 05/26/18 09:19 05/26/18 09:20 Temperature Pulse Rate 103 H 102 H 121 H Respiratory Rate 40 H 31 H 31 H Blood Pressure 181/94 H 184/85 H 162/81 H Pulse Oximetry 99 97 98 05/26/18 09:27 05/26/18 10:00 05/26/18 10:38 Temperature Pulse Rate 103 H 89 89 Respiratory Rate 18 15 Blood Pressure 165/74 H Pulse Oximetry 96 05/26/18 11:00 05/26/18 11:09 05/26/18 12:00 Temperature 98.5 F Pulse Rate 93 H 118 H 88 Respiratory Rate 21 35 H 22 Blood Pressure 184/78 H 149/63 H 170/73 H Pulse Oximetry 97 05/26/18 12:11 05/26/18 13:00 05/26/18 14:00 Temperature Pulse Rate 116 H 102 H 115 H Respiratory Rate 18 18 18 Blood Pressure 137/65 Pulse Oximetry 05/26/18 16:00 05/26/18 16:16 05/26/18 18:00 Temperature Pulse Rate 115 H 105 H Respiratory Rate 28 H 18 Blood Pressure 118/65 Pulse Oximetry 98 98 05/26/18 21:26 Temperature Pulse Rate 101 H Respiratory Rate 16 Blood Pressure Pulse Oximetry 97 Intake & Output 05/26/18 05/26/18 05/27/18 06:59 18:59 06:59 Intake Total 1220 / 1220 5060 / 5060 Output Total 75 / 75 725 / 725 Balance 1145 / 1145 4335 / 4335 Weight 57.2 kg Intake: IV 1000 / 1000 2000 / 1999 D5W/1/2 NS Inj 1,000 ML @ 125 1000 / 1000 2000 / 2000 mls/hr IV.CONT .Q8H [facility] Rx#: [id number] Oral 100 / 100 940 / 940 Oral Supplement 120 / 120 120 / 120 Trauma Intake Amount 1999 Output: Stool 325 / 325 Urine Amount (Catheter) 75 / 75 400 / 400 Indwelling Urethral Catheter 75 / 75 400 / 400 Other: Date of Last Bowel Movement 05/25/18 05/25/18 - Constitutional no acute distress - Routine HEENT Exam Head: Present: normocephalic, atraumatic Eye: Present: EOMI, scleral injection ENT: Present: mucous membranes moist - Routine Neck Exam Present: supple - Routine Respiratory Exam Present: decreased breath sounds - Routine Cardiovascular Exam Present: RRR - Routine Abdominal Exam Present: soft, normoactive bowel sounds - Urinary Catheter Management Indwelling Urethral Catheter Cath placed during this visit: yes Reason for continuing: Acute urinary retention Insertion date: 05/22/18 Assessment and Plan - Assessment (1) Acute exacerbation of COPD with asthma Code(s): J44.1 - Chronic obstructive pulmonary disease with (acute) exacerbation ; J45.901 - Unspecified asthma with (acute) exacerbation Status: Acute (2) Acute kidney failure Code(s): N17.9 - Acute kidney failure, unspecified Status: Acute (3) Hypertension Code(s): I10 - Essential (primary) hypertension Status: Acute - Assessment and Plan potassium low will supplement orally 05/26 ck lab am add desyrel at hs for sleep (2) Acute kidney failure Qualifiers: Acute renal failure type: unspecified Qualified Code(s): N17.9 - Acute kidney failure, unspecified
[2018-05-26] MEDS: traZODone 100 MG Tablet PO SCH (23:49)
[2018-05-27] MEDS: Insulin NovoLOG Aspart Correctional Sugar Inj SQ SCH ×5 (01:30→23:49)
[2018-05-27] MEDS: Dextrose 5%/NaCl 0.45% Inj 1,000 ML IV.CONT SCH ×3 (05:46→20:41)
[2018-05-27] MEDS: Chlorhexidine Gluconate 2% 1 Pack (2 Cloths) TOPICAL SCH (05:47)
[2018-05-27 07:53] LABS: Baso % (Auto) 0.2 % (0.0-2.0); Eos # (Auto) 0.3 th/mm3 (0.0-0.4); Eos % (Auto) 3.3 % (0.0-4.0); Hematocrit 26.6 % (39.0-51.0); Hemoglobin 8.6 gm/dL (13.0-17.0); Lymph # (Auto) 0.8 th/mm3 (1.0-4.8); Lymph % (Auto) 10.9 % (9.0-44.0); Mean Corpuscular HGB Conc 32.3 % (32.0-36.0); Mean Corpuscular Hemoglobin 28.9 pg (27.0-34.0); Mean Corpuscular Volume 89.4 fL (80.0-100.0); Mean Platelet Volume 7.5 fL (7.0-11.0); Mono # (Auto) 0.9 th/mm3 (0.0-0.9); Mono % (Auto) 11.6 % (0.0-8.0); Neut # (Auto) 5.6 th/mm3 (1.8-7.7); Platelet Count 243 th/mm3 (150-450); Red Blood Count 2.98 mil/mm3 (4.50-5.90); Red Cell Distribution Width 17.9 % (11.6-17.2); White Blood Count 7.6 th/mm3 (4.0-11.0)
[2018-05-27] MEDS: Senna/Docusate Sodium 8.6/50 MG Tablet PO SCH ×2 (08:22→20:40)
[2018-05-27] MEDS: Gabapentin 100 MG Capsule PO SCH ×2 (08:23→20:40)
[2018-05-27 08:35] LABS: Calcium 7.8 mg/dL (8.5-10.1); Carbon Dioxide 23.8 meq/L (21.0-32.0); Potassium 3.9 meq/L (3.5-5.1)
[2018-05-27] MEDS: Heparin - SQ 10,000 UNITS/ML Vial SQ SCH ×2 (10:38→22:34)
--- NOTE | 2018-05-27 12:13 | P.PNNP ---
Subjective Interval history: Pt resting in bed No new complaints. <Sigrid Thompson R - Last Filed: 05/27/18 12:09> Physical Exam Vital signs: Vital Signs 05/26/18 12:11 05/26/18 13:00 05/26/18 14:00 Temperature Pulse Rate 116 H 102 H 115 H Respiratory Rate 18 18 18 Blood Pressure 137/65 Pulse Oximetry 05/26/18 16:00 05/26/18 16:16 05/26/18 18:00 Temperature Pulse Rate 115 H 105 H 118 H Respiratory Rate 28 H 18 34 H Blood Pressure 118/65 Pulse Oximetry 98 81 L 05/26/18 20:00 05/26/18 20:01 05/26/18 21:26 Temperature 98.4 F Pulse Rate 134 H 132 H 101 H Respiratory Rate 41 H 41 H 16 Blood Pressure 145/82 H 145/82 H Pulse Oximetry 96 92 L 97 05/26/18 22:00 05/27/18 00:00 05/27/18 00:45 Temperature 98.9 F 98.4 F Pulse Rate 107 H 95 H 86 Respiratory Rate 15 18 15 Blood Pressure 115/59 L Pulse Oximetry 100 99 05/27/18 02:00 05/27/18 04:00 05/27/18 04:01 Temperature 98.4 F Pulse Rate 91 H 84 85 Respiratory Rate 18 20 18 Blood Pressure 138/66 138/66 Pulse Oximetry 100 100 100 05/27/18 04:34 05/27/18 05:56 05/27/18 06:00 Temperature Pulse Rate 91 H 84 101 H Respiratory Rate 16 15 33 H Blood Pressure 136/60 Pulse Oximetry 99 99 05/27/18 08:00 05/27/18 08:18 05/27/18 08:23 Temperature Pulse Rate 92 H 94 H Respiratory Rate 31 H 18 2 L Blood Pressure 143/65 H Pulse Oximetry 99 100 05/27/18 10:00 05/27/18 11:20 Temperature Pulse Rate 105 H 108 H Respiratory Rate 20 17 Blood Pressure Pulse Oximetry 99 Intake & Output 05/26/18 05/27/18 05/27/18 18:59 06:59 18:59 Intake Total 5060 / 5060 1150 / 1150 Output Total 725 / 725 200 / 200 Balance 4335 / 4335 950 / 950 Weight 58.1 kg Intake: IV 1999 1000 / 1000 D5W/1/2 NS Inj 1,000 ML @ 125 1999 1000 / 1000 mls/hr IV.CONT .Q8H [facility] Rx#: [id number] Oral 940 / 940 150 / 150 Oral Supplement 120 / 120 Trauma Intake Amount 1999 Output: Stool 325 / 325 0 / 0 Urine Amount (Catheter) 400 / 400 200 / 200 Indwelling Urethral Catheter 400 / 400 200 / 200 Other: Date of Last Bowel Movement 05/25/18 05/25/18 05/25/18 # Bowel Movements 0 - Constitutional no acute distress - Routine HEENT Exam Head: Present: normocephalic - Routine Respiratory Exam Present: CTA bilaterally - Routine Cardiovascular Exam Present: RRR, S1, S2 - Routine Abdominal Exam Present: soft - Routine Extremities Exam Present: edema (present in LUE. Appears to be related to IV line? No other edema appreciated. RN taking IV line out.) - Detailed Neurological Exam: Coma Scale Verbal Response: Oriented - Routine Psychiatric Exam Present: normal affect, normal thought process - Urinary Catheter Management Indwelling Urethral Catheter Cath placed during this visit: yes Reason for continuing: Acute urinary retention Insertion date: 05/22/18 <Sigrid Thompson - Last Filed: 05/27/18 12:09> Vital signs: Vital Signs 05/26/18 16:00 05/26/18 16:16 05/26/18 18:00 Temperature Pulse Rate 115 H 105 H 118 H Respiratory Rate 28 H 18 34 H Blood Pressure 118/65 Pulse Oximetry 98 81 L 05/26/18 20:00 05/26/18 20:01 05/26/18 21:26 Temperature 98.4 F Pulse Rate 134 H 132 H 101 H Respiratory Rate 41 H 41 H 16 Blood Pressure 145/82 H 145/82 H Pulse Oximetry 96 92 L 97 05/26/18 22:00 05/27/18 00:00 05/27/18 00:45 Temperature 98.9 F 98.4 F Pulse Rate 107 H 95 H 86 Respiratory Rate 15 18 15 Blood Pressure 115/59 L Pulse Oximetry 100 99 05/27/18 02:00 05/27/18 04:00 05/27/18 04:01 Temperature 98.4 F Pulse Rate 91 H 84 85 Respiratory Rate 18 20 18 Blood Pressure 138/66 138/66 Pulse Oximetry 100 100 100 05/27/18 04:34 05/27/18 05:56 05/27/18 06:00 Temperature Pulse Rate 91 H 84 101 H Respiratory Rate 16 15 33 H Blood Pressure 136/60 Pulse Oximetry 99 99 05/27/18 08:00 05/27/18 08:18 05/27/18 08:23 Temperature Pulse Rate 92 H 94 H Respiratory Rate 31 H 18 2 L Blood Pressure 143/65 H Pulse Oximetry 99 100 05/27/18 10:00 05/27/18 11:20 05/27/18 12:00 Temperature 97.5 F L Pulse Rate 105 H 108 H 108 H Respiratory Rate 20 17 17 Blood Pressure 151/70 H Pulse Oximetry 99 100 05/27/18 13:33 Temperature Pulse Rate 108 H Respiratory Rate Blood Pressure Pulse Oximetry Intake & Output 05/26/18 05/27/18 05/27/18 18:59 06:59 18:59 Intake Total 5060 / 5060 1150 / 1150 1000 / 1000 Output Total 725 / 725 200 / 200 Balance 4335 / 4335 950 / 950 1000 / 1000 Weight 58.1 kg Intake: IV 1999 / 1999 1000 / 1000 1000 / 1000 D5W/1/2 NS Inj 1,000 ML @ 125 2000 / 2000 1000 / 1000 1000 / 1000 mls/hr IV.CONT .Q8H [facility] Rx#: [id number] Oral 940 / 940 150 / 150 Oral Supplement 120 / 120 Trauma Intake Amount 1999 Output: Stool 325 / 325 0 / 0 Urine Amount (Catheter) 400 / 400 200 / 200 Indwelling Urethral Catheter 400 / 400 200 / 200 Other: Date of Last Bowel Movement 05/25/18 05/25/18 05/25/18 # Bowel Movements 0 - Urinary Catheter Management Indwelling Urethral Catheter Cath placed during this visit: no <Cee Granados - Last Filed: 05/27/18 14:35> Assessment and Plan - Assessment (1) Acute kidney failure Code(s): N17.9 - Acute kidney failure, unspecified Status: Acute Qualifiers: Acute renal failure type: unspecified Qualified Code(s): N17.9 - Acute kidney failure, unspecified Plan: Suspected that the patient has acute on chronic renal insufficiency related to progressive urinary tract obstruction etiology of which is uncertain. The patient's creatinine level has deteriorated again. Etiology uncertain. Barreto catheter was flushed. Will repeat CT ab/pelvis to assess for potential continued hydronephrosis/ hydroureter. If obstruction still present, will require urology consultation for definitive management. No urgency for dialytic intervention at the present. Repeat renal panel tomorrow. Medications should be adjusted for the patient's estimated GFR if clinically indicated. Avoid agents with significant potential for nephrotoxicity possible including NSAIDs for analgesia, iodine contrast agents. Gadolinium is contraindicated if the GFR is below 30. (2) Obstructive uropathy Code(s): N13.9 - Obstructive and reflux uropathy, unspecified Status: Chronic Plan: Urological opinion recommended Repeat CT as above (3) Vitamin D deficiency Code(s): E55.9 - Vitamin D deficiency, unspecified Status: Acute Plan: Start cholecalciferol once off NPO (4) Hypertension Code(s): I10 - Essential (primary) hypertension Status: Acute - Plan Labetalol on PRN list. Once cleared for po, can adjust regimen further. <Sigrid Thompson - Last Filed: 05/27/18 12:09> - Assessment (1) Acute kidney failure Code(s): N17.9 - Acute kidney failure, unspecified Status: Acute Qualifiers: Acute renal failure type: unspecified Qualified Code(s): N17.9 - Acute kidney failure, unspecified (2) Obstructive uropathy Code(s): N13.9 - Obstructive and reflux uropathy, unspecified Status: Chronic (3) Vitamin D deficiency Code(s): E55.9 - Vitamin D deficiency, unspecified Status: Acute (4) Hypertension Code(s): I10 - Essential (primary) hypertension Status: Acute - Attending Attestation Patient's urine output and renal indices have declined despite initial brisk urinary output and improvement in renal indices after Barreto catheter was initially placed. Patient has been hemodynamically stable. Etiology of worsening renal disease again uncertain. Repeat CT scan. If there is still evidence of significant hydronephrosis/ hydroureter ureter will ask urology to see the patient. Consideration may be given to placement of nephrostomy tubes. The exam, history, and the medical decision-making described in the above note were completed with the assistance of the ROMEL. I reviewed and agree with the findings presented. <Cee Granados - Last Filed: 05/27/18 14:35>
--- NOTE | 2018-05-27 17:14 | P.PNFP ---
Subjective Interval history: pt creatine remains up may have obstruction discussee with renal Results - Labs Result diagrams: 05/27/18 07:15 05/27/18 07:15 Abnormal lab results 05/26/18 05/27/18 05/27/18 Range/Units 23:25 05:49 07:15 RBC 2.98 L (4.50-5.90) mil/mm3 Hgb 8.6 L (13.0-17.0) gm/dL Hct 26.6 L (39.0-51.0) % RDW 17.9 H (11.6-17.2) % Neut % (Auto) 74.0 H (16.0-70.0) % Starr % (Auto) 11.6 H (0.0-8.0) % Lymph # (Auto) 0.8 L (1.0-4.8) th/mm3 BUN (7-18) mg/dL Creatinine (0.60-1.30) mg/dL Estimated GFR (>89) mL/min POC Glucose 143 H 156 H (68-110) mg/dl Calcium (8.5-10.1) mg/dL 05/27/18 05/27/18 05/27/18 Range/Units 07:15 11:25 16:05 RBC (4.50-5.90) mil/mm3 Hgb (13.0-17.0) gm/dL Hct (39.0-51.0) % RDW (11.6-17.2) % Neut % (Auto) (16.0-70.0) % Starr % (Auto) (0.0-8.0) % Lymph # (Auto) (1.0-4.8) th/mm3 BUN 46 H (7-18) mg/dL Creatinine 7.31 H (0.60-1.30) mg/dL Estimated GFR 9 L (>89) mL/min POC Glucose 126 H 131 H (68-110) mg/dl Calcium 7.8 L (8.5-10.1) mg/dL Short CBC 05/27/18 Range/Units 07:15 WBC 7.6 (4.0-11.0) th/mm3 Hgb 8.6 L (13.0-17.0) gm/dL Hct 26.6 L (39.0-51.0) % Plt Count 243 (150-450) th/mm3 BMP 05/27/18 07:15 Sodium 139 Potassium 3.9 Chloride 105 Carbon Dioxide 23.8 BUN 46 H Creatinine 7.31 H Calcium 7.8 L Physical Exam Vital signs: Vital Signs 05/26/18 18:00 05/26/18 20:00 05/26/18 20:01 Temperature 98.4 F Pulse Rate 118 H 134 H 132 H Respiratory Rate 34 H 41 H 41 H Blood Pressure 145/82 H 145/82 H Pulse Oximetry 81 L 96 92 L 05/26/18 21:26 05/26/18 22:00 05/27/18 00:00 Temperature 98.9 F 98.4 F Pulse Rate 101 H 107 H 95 H Respiratory Rate 16 15 18 Blood Pressure 115/59 L Pulse Oximetry 97 100 99 05/27/18 00:45 05/27/18 02:00 05/27/18 04:00 Temperature 98.4 F Pulse Rate 86 91 H 84 Respiratory Rate 15 18 20 Blood Pressure 138/66 Pulse Oximetry 100 100 05/27/18 04:01 05/27/18 04:34 05/27/18 05:56 Temperature Pulse Rate 85 91 H 84 Respiratory Rate 18 16 15 Blood Pressure 138/66 136/60 Pulse Oximetry 100 99 05/27/18 06:00 05/27/18 08:00 05/27/18 08:18 Temperature Pulse Rate 101 H 92 H 94 H Respiratory Rate 33 H 31 H 18 Blood Pressure 143/65 H Pulse Oximetry 99 99 100 05/27/18 08:23 05/27/18 10:00 05/27/18 11:20 Temperature Pulse Rate 105 H 108 H Respiratory Rate 2 L 20 17 Blood Pressure Pulse Oximetry 99 05/27/18 12:00 05/27/18 13:33 05/27/18 14:00 Temperature 97.5 F L Pulse Rate 108 H 108 H 123 H Respiratory Rate 17 45 H Blood Pressure 151/70 H Pulse Oximetry 100 98 05/27/18 15:29 05/27/18 16:00 05/27/18 16:01 Temperature 98.5 F Pulse Rate 115 H 105 H 97 H Respiratory Rate 20 15 19 Blood Pressure 110/54 L Pulse Oximetry 98 98 Intake & Output 05/26/18 05/27/18 05/27/18 18:59 06:59 18:59 Intake Total 5060 / 5060 1150 / 1150 1000 / 1000 Output Total 725 / 725 200 / 200 Balance 4335 / 4335 950 / 950 1000 / 1000 Weight 58.1 kg Intake: IV 1999 1000 / 1000 1000 / 1000 D5W/1/2 NS Inj 1,000 ML @ 125 1999 / 1999 1000 / 1000 1000 / 1000 mls/hr IV.CONT .Q8H [facility] Rx#: [id number] Oral 940 / 940 150 / 150 Oral Supplement 120 / 120 Trauma Intake Amount 1999 Output: Stool 325 / 325 0 / 0 Urine Amount (Catheter) 400 / 400 200 / 200 Indwelling Urethral Catheter 400 / 400 200 / 200 Other: Date of Last Bowel Movement 05/25/18 05/25/18 05/25/18 # Bowel Movements 0 - Constitutional no acute distress - Routine HEENT Exam Head: Present: normocephalic, atraumatic Eye: Present: EOMI, PERRL ENT: Present: mucous membranes moist - Routine Neck Exam Present: supple - Routine Respiratory Exam Present: CTA bilaterally - Routine Cardiovascular Exam Present: RRR - Routine Abdominal Exam Present: soft, normoactive bowel sounds - Urinary Catheter Management Indwelling Urethral Catheter Cath placed during this visit: yes Reason for continuing: Acute urinary retention Insertion date: 05/22/18 Assessment and Plan - Assessment (1) Acute exacerbation of COPD with asthma Code(s): J44.1 - Chronic obstructive pulmonary disease with (acute) exacerbation ; J45.901 - Unspecified asthma with (acute) exacerbation Status: Acute (2) Acute kidney failure Code(s): N17.9 - Acute kidney failure, unspecified Status: Acute (3) Hypertension Code(s): I10 - Essential (primary) hypertension Status: Acute - Assessment and Plan potassium low will supplement orally 05/26 ck lab am add desyrel at hs for sleep 05/27 image urinary tract for obstruction (2) Acute kidney failure Qualifiers: Acute renal failure type: unspecified Qualified Code(s): N17.9 - Acute kidney failure, unspecified
[2018-05-27] MEDS: traZODone 100 MG Tablet PO SCH (20:40)
[2018-05-28] MEDS: Dextrose 5%/NaCl 0.45% Inj 1,000 ML IV.CONT SCH ×3 (03:35→22:01)
[2018-05-28] MEDS: Insulin NovoLOG Aspart Correctional Sugar Inj SQ SCH ×2 (05:39→20:50)
[2018-05-28] MEDS: Gabapentin 100 MG Capsule PO SCH ×2 (09:00→20:51)
[2018-05-28] MEDS: Senna/Docusate Sodium 8.6/50 MG Tablet PO SCH ×2 (09:01→20:51)
[2018-05-28] MEDS: Heparin - SQ 10,000 UNITS/ML Vial SQ SCH ×2 (09:14→22:02)
[2018-05-28 09:24] LABS: Mean Corpuscular HGB Conc 31.5 % (32.0-36.0); Mean Corpuscular Hemoglobin 28.2 pg (27.0-34.0); Mean Corpuscular Volume 89.4 fL (80.0-100.0); Mean Platelet Volume 7.9 fL (7.0-11.0); Platelet Count 142 th/mm3 (150-450); Red Blood Count 2.43 mil/mm3 (4.50-5.90); Red Cell Distribution Width 17.7 % (11.6-17.2); White Blood Count 16.3 th/mm3 (4.0-11.0)
[2018-05-28 09:53] LABS: Calcium 8.2 mg/dL (8.5-10.1); Carbon Dioxide 19.3 meq/L (21.0-32.0); Potassium 4.5 meq/L (3.5-5.1)
[2018-05-28 09:54] LABS: % Iron Saturation 11.7 % (20-50); Phosphorus 3.8 mg/dL (2.5-4.9)
[2018-05-28 10:02] LABS: Hematocrit 21.7 % (39.0-51.0); Hemoglobin 6.8 gm/dL (13.0-17.0)
[2018-05-28 10:45] LABS: Acanthocytes Occ; Lymphocytes 3 % (9-44); Monocytes 3 % (0-8); Ovalocytes 1+; Platelet Morphology Normal (Normal)
[2018-05-28] MEDS ORDERED: Sodium Chlor 0.9% Inj 250 ML IV.SIG SCH (13:00)
--- NOTE | 2018-05-28 14:49 | P.PNFP ---
Subjective Interval history: pt with sob this am hgb returned 6.9 will transfuse Results - Labs Result diagrams: 05/28/18 07:58 05/28/18 07:50 Abnormal lab results 05/27/18 05/27/18 05/28/18 Range/Units 16:05 23:39 05:31 WBC (4.0-11.0) th/mm3 RBC (4.50-5.90) mil/mm3 Hgb (13.0-17.0) gm/dL Hct (39.0-51.0) % MCHC (32.0-36.0) % RDW (11.6-17.2) % Plt Count (150-450) th/mm3 Seg Neuts % (Manual) (16-70) % Band Neuts % (Manual) (0-6) % Lymphocytes % (Manual) (9-44) % Abs Neuts (Manual) (1.8-7.7) th/mm3 Platelet Estimate (Normal) Ovalocytes (None) Acanthocytes (Spur) (None) Keratocytes (None) Carbon Dioxide (21.0-32.0) meq/L BUN (7-18) mg/dL Creatinine (0.60-1.30) mg/dL Estimated GFR (>89) mL/min POC Glucose 131 H 160 H 154 H (68-110) mg/dl Random Glucose (74-106) mg/dL Calcium (8.5-10.1) mg/dL Iron (65-175) mcg/dL TIBC (250-450) mcg/dL % Saturation (20-50) % Albumin (3.4-5.0) g/dL MTS Gel Crossmatch 05/28/18 05/28/18 05/28/18 Range/Units 07:50 07:58 13:00 WBC 16.3 H (4.0-11.0) th/mm3 RBC 2.43 L (4.50-5.90) mil/mm3 Hgb 6.8 L* (13.0-17.0) gm/dL Hct 21.7 L (39.0-51.0) % MCHC 31.5 L (32.0-36.0) % RDW 17.7 H (11.6-17.2) % Plt Count 142 L D (150-450) th/mm3 Seg Neuts % (Manual) 86 H (16-70) % Band Neuts % (Manual) 8 H (0-6) % Lymphocytes % (Manual) 3 L (9-44) % Abs Neuts (Manual) 15.3 H (1.8-7.7) th/mm3 Platelet Estimate Low L (Normal) Ovalocytes 1+ H (None) Acanthocytes (Spur) Occ H (None) Keratocytes Occ H (None) Carbon Dioxide 19.3 L (21.0-32.0) meq/L BUN 48 H (7-18) mg/dL Creatinine 6.71 H (0.60-1.30) mg/dL Estimated GFR 10 L (>89) mL/min POC Glucose 135 H (68-110) mg/dl Random Glucose 120 H (74-106) mg/dL Calcium 8.2 L (8.5-10.1) mg/dL Iron 22 L (65-175) mcg/dL TIBC 188 L (250-450) mcg/dL % Saturation 11.7 L (20-50) % Albumin 2.0 L (3.4-5.0) g/dL [facility] Gel Crossmatch 05/28/18 Range/Units 13:43 WBC (4.0-11.0) th/mm3 RBC (4.50-5.90) mil/mm3 Hgb (13.0-17.0) gm/dL Hct (39.0-51.0) % MCHC (32.0-36.0) % RDW (11.6-17.2) % Plt Count (150-450) th/mm3 Seg Neuts % (Manual) (16-70) % Band Neuts % (Manual) (0-6) % Lymphocytes % (Manual) (9-44) % Abs Neuts (Manual) (1.8-7.7) th/mm3 Platelet Estimate (Normal) Ovalocytes (None) Acanthocytes (Spur) (None) Keratocytes (None) Carbon Dioxide (21.0-32.0) meq/L BUN (7-18) mg/dL Creatinine (0.60-1.30) mg/dL Estimated GFR (>89) mL/min POC Glucose (68-110) mg/dl Random Glucose (74-106) mg/dL Calcium (8.5-10.1) mg/dL Iron (65-175) mcg/dL TIBC (250-450) mcg/dL % Saturation (20-50) % Albumin (3.4-5.0) g/dL MTS Gel Crossmatch See Detail Short CBC 05/28/18 Range/Units 07:58 WBC 16.3 H (4.0-11.0) th/mm3 Hgb 6.8 L* (13.0-17.0) gm/dL Hct 21.7 L (39.0-51.0) % Plt Count 142 L D (150-450) th/mm3 BMP 05/28/18 07:50 Sodium 136 Potassium 4.5 Chloride 106 Carbon Dioxide 19.3 L BUN 48 H Creatinine 6.71 H Calcium 8.2 L Liver Function 05/28/18 Range/Units 07:50 Albumin 2.0 L (3.4-5.0) g/dL Physical Exam Vital signs: Vital Signs 05/27/18 15:29 05/27/18 16:00 05/27/18 16:01 Temperature 98.5 F Pulse Rate 115 H 105 H 97 H Respiratory Rate 20 15 19 Blood Pressure 110/54 L Pulse Oximetry 98 98 05/27/18 18:00 05/27/18 20:00 05/27/18 20:40 Temperature 98.3 F Pulse Rate 97 H 150 H Respiratory Rate 36 H Blood Pressure 159/80 H Pulse Oximetry 98 95 95 05/27/18 20:44 05/27/18 22:00 05/28/18 00:00 Temperature 102.8 F H Pulse Rate 113 H 132 H 133 H Respiratory Rate 24 22 24 Blood Pressure 104/62 101/53 L Pulse Oximetry 94 L 95 95 05/28/18 00:09 05/28/18 00:25 05/28/18 00:52 Temperature Pulse Rate 122 H 121 H Respiratory Rate 22 28 H Blood Pressure Pulse Oximetry 05/28/18 03:34 05/28/18 03:42 05/28/18 04:00 Temperature 97.9 F Pulse Rate 108 H 105 H 125 H Respiratory Rate 24 22 Blood Pressure 97/52 L Pulse Oximetry 94 L 05/28/18 05:36 05/28/18 08:40 05/28/18 08:46 Temperature 98.5 F Pulse Rate 107 H 103 H Respiratory Rate 19 16 Blood Pressure 122/58 L Pulse Oximetry 97 95 96 05/28/18 11:07 Temperature Pulse Rate 112 H Respiratory Rate 26 H Blood Pressure Pulse Oximetry 95 Intake & Output 05/27/18 05/28/18 05/28/18 18:59 06:59 18:59 Intake Total 3870 / 3870 1999 1000 / 1000 Output Total 900 / 900 850 / 850 Balance 2970 / 2970 1150 / 1150 1000 / 1000 Intake: IV 1000 / 1000 1999 1000 / 1000 D5W/1/2 NS Inj 1,000 ML @ 125 1000 / 1000 1999 1000 / 1000 mls/hr IV.CONT .Q8H [facility] Rx#: [id number] Oral 750 / 750 Oral Supplement 120 / 120 Trauma Intake Amount 1999 Output: Urine 900 / 900 850 / 850 Stool 0 / 0 Other: Date of Last Bowel Movement 05/25/18 # Bowel Movements 0 - Constitutional no acute distress - Routine HEENT Exam Head: Present: normocephalic, atraumatic Eye: Present: EOMI, PERRL ENT: Present: mucous membranes moist - Routine Respiratory Exam Present: decreased breath sounds, diminished air movement - Routine Cardiovascular Exam Present: RRR - Routine Neurological Exam Present: alert (to transfuse 2 units prbc) - Urinary Catheter Management Indwelling Urethral Catheter Cath placed during this visit: yes Reason for continuing: Other continuation reason Insertion date: 05/22/18 Assessment and Plan - Assessment (1) Acute exacerbation of COPD with asthma Code(s): J44.1 - Chronic obstructive pulmonary disease with (acute) exacerbation ; J45.901 - Unspecified asthma with (acute) exacerbation Status: Acute (2) Acute kidney failure Code(s): N17.9 - Acute kidney failure, unspecified Status: Acute (3) Hypertension Code(s): I10 - Essential (primary) hypertension Status: Acute - Assessment and Plan potassium low will supplement orally 05/26 ck lab am add desyrel at hs for sleep 05/27 image urinary tract for obstruction (2) Acute kidney failure Qualifiers: Acute renal failure type: unspecified Qualified Code(s): N17.9 - Acute kidney failure, unspecified
--- NOTE | 2018-05-28 17:59 | P.PNNP ---
Subjective Interval history: Patient had no verbal complaints today. Apparently did have some shortness of breath earlier. Physical Exam Vital signs: Vital Signs 05/27/18 18:00 05/27/18 20:00 05/27/18 20:40 Temperature 98.3 F Pulse Rate 97 H 150 H Respiratory Rate 36 H Blood Pressure 159/80 H Pulse Oximetry 98 95 95 05/27/18 20:44 05/27/18 22:00 05/28/18 00:00 Temperature 102.8 F H Pulse Rate 113 H 132 H 133 H Respiratory Rate 24 22 24 Blood Pressure 104/62 101/53 L Pulse Oximetry 94 L 95 95 05/28/18 00:09 05/28/18 00:25 05/28/18 00:52 Temperature Pulse Rate 122 H 121 H Respiratory Rate 22 28 H Blood Pressure Pulse Oximetry 05/28/18 03:34 05/28/18 03:42 05/28/18 04:00 Temperature 97.9 F Pulse Rate 108 H 105 H 125 H Respiratory Rate 24 22 Blood Pressure 97/52 L Pulse Oximetry 94 L 05/28/18 05:36 05/28/18 08:40 05/28/18 08:46 Temperature 98.5 F Pulse Rate 107 H 103 H Respiratory Rate 19 16 Blood Pressure 122/58 L Pulse Oximetry 97 95 96 05/28/18 11:07 05/28/18 15:45 05/28/18 16:21 Temperature 100.2 F H Pulse Rate 112 H 112 H 116 H Respiratory Rate 26 H 20 24 Blood Pressure 108/58 L Pulse Oximetry 95 97 Intake & Output 05/27/18 05/28/18 05/28/18 18:59 06:59 18:59 Intake Total 3870 / 3870 1999 1000 / 1000 Output Total 900 / 900 850 / 850 Balance 2970 / 2970 1150 / 1150 1000 / 1000 Intake: IV 1000 / 1000 1999 1000 / 1000 D5W/1/2 NS Inj 1,000 ML @ 125 1000 / 1000 1999 1000 / 1000 mls/hr IV.CONT .Q8H [facility] Rx#: [id number] Oral 750 / 750 Oral Supplement 120 / 120 Intake (Blood Product) Amt 0 / 0 Rbc As-3 Leukoreduced Unit 0 / 0 [id number] Trauma Intake Amount 1999 Output: Urine 900 / 900 850 / 850 Stool 0 / 0 Other: Date of Last Bowel Movement 05/25/18 # Bowel Movements 0 Narrative: GENERAL: Patient lying comfortably in bed. SKIN: Warm and dry. HEAD: Normocephalic. EYES: No scleral icterus. No injection or drainage. NECK: Supple, trachea midline. No JVD or lymphadenopathy. CARDIOVASCULAR: Regular rate and rhythm without murmurs, gallops, or rubs. 1+ pitting edema lower extremities and hands and forearms. RESPIRATORY: Breath sounds equal bilaterally. No accessory muscle use. GASTROINTESTINAL: Abdomen soft, non-tender, nondistended. - Urinary Catheter Management Indwelling Urethral Catheter Cath placed during this visit: yes Reason for continuing: Other continuation reason Insertion date: 05/22/18 Assessment and Plan - Assessment (1) Acute kidney failure Code(s): N17.9 - Acute kidney failure, unspecified Status: Acute Qualifiers: Acute renal failure type: unspecified Qualified Code(s): N17.9 - Acute kidney failure, unspecified Plan: The patient's creatinine has improved slightly however does appear to have significant fluid retention at this time. We will give another dose of furosemide tomorrow. Patient was advised that if his azotemia does not improve significantly we may have to consider initiating dialysis in the near future. He indicated to me that he would do dialysis if he were to develop terminal renal failure. Repeat renal panel tomorrow. Medications should be adjusted for the patient's estimated GFR if clinically indicated. Avoid agents with significant potential for nephrotoxicity possible including NSAIDs for analgesia, iodine contrast agents. Gadolinium is contraindicated if the GFR is below 30. (2) Obstructive uropathy Code(s): N13.9 - Obstructive and reflux uropathy, unspecified Status: Chronic Plan: Urological opinion recommended Repeat CT as above (3) Vitamin D deficiency Code(s): E55.9 - Vitamin D deficiency, unspecified Status: Acute Plan: Start cholecalciferol once off NPO (4) Hypertension Code(s): I10 - Essential (primary) hypertension Status: Acute - Plan Labetalol on PRN list. Once cleared for po, can adjust regimen further.
[2018-05-28] MEDS: traZODone 100 MG Tablet PO SCH (20:52)
[2018-05-28 20:55] LABS: Baso # (Auto) 0.1 th/mm3 (0.0-0.2); Baso % (Auto) 0.4 % (0.0-2.0); Eos # (Auto) 0.2 th/mm3 (0.0-0.4); Eos % (Auto) 1.5 % (0.0-4.0); Hematocrit 27.3 % (39.0-51.0); Hemoglobin 8.8 gm/dL (13.0-17.0); Lymph # (Auto) 0.8 th/mm3 (1.0-4.8); Mean Corpuscular HGB Conc 32.3 % (32.0-36.0); Mean Corpuscular Hemoglobin 28.9 pg (27.0-34.0); Mean Corpuscular Volume 89.5 fL (80.0-100.0); Mean Platelet Volume 7.5 fL (7.0-11.0); Mono # (Auto) 1.3 th/mm3 (0.0-0.9); Neut # (Auto) 13.6 th/mm3 (1.8-7.7); Neut % (Auto) 85.1 % (16.0-70.0); Platelet Count 159 th/mm3 (150-450); Red Blood Count 3.05 mil/mm3 (4.50-5.90); Red Cell Distribution Width 16.9 % (11.6-17.2)
--- NOTE | 2018-05-28 21:10 | CT ---
EXAM DATE: 05/28/2018 7:52 PM EDT AGE/SEX: 82 years / Male INDICATIONS: Abdominal pain. CLINICAL DATA: This is the patient's initial encounter. Patient reports that signs and symptoms have been present for 1 day and indicates a pain score of 5/10. MEDICAL/SURGICAL HISTORY: Chronic obstructive pulmonary disease. Hypertension. Hernia. None. RADIATION DOSE: 8.98 CTDI (mGy) [place] [facility] [place] 05/22/2018. . TECHNIQUE: Multiple contiguous axial images were obtained through the abdomen. Images were obtained using multiple row detector helical technique. Using automated exposure control and adjustment of the mA and/or kV according to patient size, radiation dose was kept as low as reasonably achievable to o btain optimal diagnostic quality images. DICOM format image data is available electronically for rev iew and comparison. FINDINGS: Lower Lungs: Right lower lung consolidation with air bronchograms and moderate size left pleural effu aniya. Liver: The liver has a homogeneous density without space-occupying lesion for noncontrast technique. There is no dilation of the biliary tree. 11 mm lamellated calcified gallstone stable from prior. Spleen: Homogeneous density without enlargement. Pancreas: Unremarkable without mass or calcification. Kidneys: Bilateral hydronephrosis and hydroureter similar in severity to prior CT. No calcified liam l stones. Adrenal Glands: Unremarkable. Aorta: The aorta and proximal iliac vessels are grossly unremarkable without aneurysmal dilation. Bowel/Mesentery: No dilated loops of small or large bowel. Stool throughout the colon. Abdominal Wall: Intact. Retroperitoneum: No evidence of adenopathy in the retrocrural, para-aortic, or deep pelvic regions. Bladder: Barreto catheter. Reproductive Organs: Enlarged prostate causing indentation on the left base of the urinary bladder a nd stop prostate measures 5.6 cm in superior/inferior extent. Inguinal: The inguinal region is unremarkable without evidence of adenopathy. Bony Structures: Multiple sclerotic lesions (left iliac wing, left medial ilium, left sacral ala) si milar in appearance to prior. Advanced degenerative changes in the lower lumbar spine associated righ t scoliosis. CONCLUSION: 1. Bilateral lower lobe consolidation and left pleural effusion. 2. Gallstone, unchanged. 3. Enlarged prostate, stable. Electronically signed by: Greg Kay MD 05/28/2018 9:08 PM EDT
--- NOTE | 2018-05-28 23:34 | US ---
EXAM DATE: 05/28/2018 11:28 PM EDT AGE/SEX: 82 years / Male INDICATIONS: Arm bruising after dialysis. CLINICAL DATA: This is the patient's initial encounter. Patient reports that signs and symptoms have been present for 1 day and indicates a pain score of 0/10. MEDICAL/SURGICAL HISTORY: Chronic obstructive pulmonary disease. Hypertension. Umbilical herni a repair. COMPARISON: No prior exams available for comparison. FINDINGS: Right Upper Extremity: The vessels are compressible and augmentation response is documented. No fill ing defects are seen. The flow is phasic with respiration. Left Upper Extremity: Nonocclusive thrombus in the proximal left cephalic vein. Occlusive thrombus i n the mid and distal cephalic vein. No deep venous thrombosis. CONCLUSION: 1. No deep venous thrombosis. Occlusive and nonocclusive thrombus in the left cephalic vein. Electronically signed by: Fransico Murillo MD 05/28/2018 11:33 PM EDT
[2018-05-29] MEDS: Insulin NovoLOG Aspart Correctional Sugar Inj SQ SCH ×4 (00:22→17:15)
[2018-05-29] MEDS: Dextrose 5%/NaCl 0.45% Inj 1,000 ML IV.CONT SCH ×2 (00:48→08:58)
[2018-05-29 01:21] LABS: Hematocrit 25.5 % (39.0-51.0); Hemoglobin 8.5 gm/dL (13.0-17.0)
[2018-05-29 07:15] LABS: Albumin 2.2 g/dL (3.4-5.0); Calcium 8.6 mg/dL (8.5-10.1); Carbon Dioxide 23.9 meq/L (21.0-32.0); Potassium 4.5 meq/L (3.5-5.1)
[2018-05-29] MEDS: Senna/Docusate Sodium 8.6/50 MG Tablet PO SCH ×2 (09:00→21:29)
[2018-05-29] MEDS: Gabapentin 100 MG Capsule PO SCH ×2 (09:02→21:29)
[2018-05-29] MEDS: Heparin - SQ 10,000 UNITS/ML Vial SQ SCH ×2 (11:19→21:29)
--- NOTE | 2018-05-29 15:34 | P.PNFP ---
Subjective Interval history: pt given 2 units prbc Results - Labs Result diagrams: 05/29/18 01:02 05/29/18 05:35 Abnormal lab results 05/28/18 05/28/18 05/28/18 Range/Units 13:43 19:25 23:21 WBC 16.0 H (4.0-11.0) th/mm3 RBC 3.05 L (4.50-5.90) mil/mm3 Hgb 8.8 L D (13.0-17.0) gm/dL Hct 27.3 L (39.0-51.0) % Neut % (Auto) 85.1 H (16.0-70.0) % Lymph % (Auto) 5.0 L (9.0-44.0) % Neut # (Auto) 13.6 H (1.8-7.7) th/mm3 Lymph # (Auto) 0.8 L (1.0-4.8) th/mm3 [place] # (Auto) 1.3 H (0.0-0.9) th/mm3 Chloride (98-107) meq/L BUN (7-18) mg/dL Creatinine (0.60-1.30) mg/dL Estimated GFR (>89) mL/min POC Glucose 144 H (68-110) mg/dl Random Glucose (74-106) mg/dL Albumin (3.4-5.0) g/dL MTS Gel Crossmatch See Detail 05/29/18 05/29/18 05/29/18 Range/Units 01:02 05:35 05:52 WBC (4.0-11.0) th/mm3 RBC (4.50-5.90) mil/mm3 Hgb 8.5 L (13.0-17.0) gm/dL Hct 25.5 L (39.0-51.0) % Neut % (Auto) (16.0-70.0) % Lymph % (Auto) (9.0-44.0) % Neut # (Auto) (1.8-7.7) th/mm3 Lymph # (Auto) (1.0-4.8) th/mm3 [place] # (Auto) (0.0-0.9) th/mm3 Chloride 109 H (98-107) meq/L BUN 48 H (7-18) mg/dL Creatinine 5.34 H (0.60-1.30) mg/dL Estimated GFR 13 L (>89) mL/min POC Glucose 119 H (68-110) mg/dl Random Glucose 118 H (74-106) mg/dL Albumin 2.2 L (3.4-5.0) g/dL MTS Gel Crossmatch Short CBC 05/28/18 05/29/18 Range/Units 19:25 01:02 WBC 16.0 H (4.0-11.0) th/mm3 Hgb 8.8 L D 8.5 L (13.0-17.0) gm/dL Hct 27.3 L 25.5 L (39.0-51.0) % Plt Count 159 (150-450) th/mm3 BMP 05/29/18 05:35 Sodium 143 Potassium 4.5 Chloride 109 H Carbon Dioxide 23.9 BUN 48 H Creatinine 5.34 H Calcium 8.6 Liver Function 05/29/18 Range/Units 05:35 Albumin 2.2 L (3.4-5.0) g/dL - Imaging Impressions Abdomen/Pelvis CT 05/28/18 00:00 CONCLUSION: 1. Bilateral lower lobe consolidation and left pleural effusion. 2. Gallstone, unchanged. 3. Enlarged prostate, stable. Venous Doppler Study 05/28/18 19:31 CONCLUSION: 1. No deep venous thrombosis. Occlusive and nonocclusive thrombus in the left cephalic vein. Physical Exam Vital signs: Vital Signs 05/28/18 15:45 05/28/18 16:21 05/28/18 20:00 Temperature 100.2 F H 98.3 F Pulse Rate 112 H 116 H 126 H Respiratory Rate 20 24 18 Blood Pressure 108/58 L 132/62 Pulse Oximetry 97 95 05/28/18 20:17 05/28/18 21:32 05/28/18 21:49 Temperature 98.8 F 98.9 F Pulse Rate 116 H 114 H 117 H Respiratory Rate 18 22 20 Blood Pressure 99/54 L 104/57 L Pulse Oximetry 100 05/28/18 23:38 05/29/18 00:00 05/29/18 03:59 Temperature 98 F Pulse Rate 108 H Respiratory Rate 20 20 Blood Pressure 107/58 L Pulse Oximetry 100 95 05/29/18 04:00 05/29/18 09:21 05/29/18 09:23 Temperature 98.6 F Pulse Rate 99 H 98 H Respiratory Rate 18 15 Blood Pressure 135/72 Pulse Oximetry 97 97 05/29/18 10:55 05/29/18 12:00 Temperature 97.7 F Pulse Rate 118 H 128 H Respiratory Rate 23 Blood Pressure 129/70 Pulse Oximetry 93 L Intake & Output 05/28/18 05/29/18 05/29/18 18:59 06:59 18:59 Intake Total 1000 / 1000 1875 / 1875 1000 / 1000 Output Total 3750 / 3750 950 / 950 Balance 1000 / 1000 -1875 / -1875 50 / 50 Weight 59.3 kg Intake: IV 1000 / 1000 1000 / 1000 1000 / 1000 D5W/1/2 NS Inj 1,000 ML @ 125 1000 / 1000 1000 / 1000 1000 / 1000 mls/hr IV.CONT .Q8H [facility] Rx#: [id number] Other 75 / 75 Rbc As-3 Leukoreduced Unit 75 / 75 [id number] Intake (Blood Product) Amt 0 / 0 800 / 800 Rbc As-3 Leukoreduced Unit 0 / 0 400 / 400 [id number] Rbc As-3 Leukoreduced Unit 400 / 400 [id number] Output: Urine 1750 / 1750 Urine Amount (Catheter) 1999 950 / 950 Indwelling Urethral Catheter 1999 950 / 950 Other: Other Intake Source Rbc As-3 Leukoreduced Unit Saline Solution [id number] - Constitutional no acute distress - Routine HEENT Exam Head: Present: normocephalic, atraumatic Eye: Present: EOMI, PERRL ENT: Present: mucous membranes moist - Routine Neck Exam Present: supple - Routine Respiratory Exam Present: decreased breath sounds, CTA bilaterally - Routine Cardiovascular Exam Present: RRR - Routine Abdominal Exam Present: soft, normoactive bowel sounds - Urinary Catheter Management Indwelling Urethral Catheter Cath placed during this visit: yes Reason for continuing: Acute urinary retention Insertion date: 05/22/18 Insertion time: 21:00 Assessment and Plan - Assessment (1) Acute exacerbation of COPD with asthma Code(s): J44.1 - Chronic obstructive pulmonary disease with (acute) exacerbation ; J45.901 - Unspecified asthma with (acute) exacerbation Status: Acute (2) Acute kidney failure Code(s): N17.9 - Acute kidney failure, unspecified Status: Acute (3) Hypertension Code(s): I10 - Essential (primary) hypertension Status: Acute - Assessment and Plan potassium low will supplement orally 05/26 ck lab am add desyrel at hs for sleep 05/27 image urinary tract for obstruction 05/29 given 2 units prbc pt has hgb 8.5 now will follow closely (2) Acute kidney failure Qualifiers: Acute renal failure type: unspecified Qualified Code(s): N17.9 - Acute kidney failure, unspecified
--- NOTE | 2018-05-29 16:11 | P.PNNP ---
Subjective Interval history: Patient lying comfortably in bed. No verbal complaints. Physical Exam Vital signs: Vital Signs 05/28/18 16:21 05/28/18 20:00 05/28/18 20:17 Temperature 100.2 F H 98.3 F Pulse Rate 116 H 126 H 116 H Respiratory Rate 24 18 18 Blood Pressure 108/58 L 132/62 Pulse Oximetry 97 95 05/28/18 21:32 05/28/18 21:49 05/28/18 23:38 Temperature 98.8 F 98.9 F Pulse Rate 114 H 117 H Respiratory Rate 22 20 Blood Pressure 99/54 L 104/57 L Pulse Oximetry 100 100 05/29/18 00:00 05/29/18 03:59 05/29/18 04:00 Temperature 98 F 98.6 F Pulse Rate 108 H 99 H Respiratory Rate 20 20 18 Blood Pressure 107/58 L 135/72 Pulse Oximetry 95 97 05/29/18 09:21 05/29/18 09:23 05/29/18 10:55 Temperature Pulse Rate 98 H 118 H Respiratory Rate 15 Blood Pressure Pulse Oximetry 97 05/29/18 12:00 Temperature 97.7 F Pulse Rate 128 H Respiratory Rate 23 Blood Pressure 129/70 Pulse Oximetry 93 L Intake & Output 05/28/18 05/29/18 05/29/18 18:59 06:59 18:59 Intake Total 1000 / 1000 1875 / 1875 1000 / 1000 Output Total 3750 / 3750 950 / 950 Balance 1000 / 1000 -1875 / -1875 50 / 50 Weight 59.3 kg Intake: IV 1000 / 1000 1000 / 1000 1000 / 1000 D5W/1/2 NS Inj 1,000 ML @ 125 1000 / 1000 1000 / 1000 1000 / 1000 mls/hr IV.CONT .Q8H [facility]ES [facility] Rx#: [id number] Other 75 / 75 Rbc As-3 Leukoreduced Unit 75 / 75 [id number] Intake (Blood Product) Amt 0 / 0 800 / 800 Rbc As-3 Leukoreduced Unit 0 / 0 400 / 400 [id number] Rbc As-3 Leukoreduced Unit 400 / 400 [id number] Output: Urine 1750 / 1750 Urine Amount (Catheter) 1999 950 / 950 Indwelling Urethral Catheter 1999 950 / 950 Other: Other Intake Source Rbc As-3 Leukoreduced Unit Saline Solution [id number] Narrative: GENERAL: Patient lying comfortably in bed. SKIN: Warm and dry. HEAD: Normocephalic. EYES: No scleral icterus. No injection or drainage. NECK: Supple, trachea midline. No JVD or lymphadenopathy. CARDIOVASCULAR: Regular rate and rhythm without murmurs, gallops, or rubs. Trace edema lower extremities RESPIRATORY: Breath sounds equal bilaterally. No accessory muscle use. GASTROINTESTINAL: Abdomen soft, non-tender, nondistended. - Urinary Catheter Management Indwelling Urethral Catheter Cath placed during this visit: yes Reason for continuing: Acute urinary retention Insertion date: 05/22/18 Insertion time: 21:00 Assessment and Plan - Assessment (1) Acute kidney failure Code(s): N17.9 - Acute kidney failure, unspecified Status: Acute Qualifiers: Acute renal failure type: unspecified Qualified Code(s): N17.9 - Acute kidney failure, unspecified Plan: Patient's renal indices have again improved today. Urine output appears to be good. Hopefully this trend will continue and we can avoid dialysis. Repeat BMP tomorrow. Medications should be adjusted for the patient's estimated GFR if clinically indicated. Avoid agents with significant potential for nephrotoxicity possible including NSAIDs for analgesia, iodine contrast agents. Gadolinium is contraindicated if the GFR is below 30. (2) Obstructive uropathy Code(s): N13.9 - Obstructive and reflux uropathy, unspecified Status: Chronic Plan: Maintaining good urine output but slow improvement in renal indices. Repeat CT scan still showing bilateral hydronephrosis. Would like an opinion from urology. (3) Vitamin D deficiency Code(s): E55.9 - Vitamin D deficiency, unspecified Status: Acute Plan: Continue vitamin D supplementation (4) Hypertension Code(s): I10 - Essential (primary) hypertension Status: Acute - Plan Labetalol on PRN list. Once cleared for po, can adjust regimen further.
--- NOTE | 2018-05-29 17:04 | P.CONURO ---
History of Present Illness Service: Urology Consult date: 05/29/18 Requesting Physician: Cee Granados Reason for Consult: b/l hydro Primary Care Provider: Nishant Johnson DO Family Provider: Nishant Johnson DO Chief Complaint: fatigue History of Present Illness: Pt is a 82y.o. M who was admitted to the hospital a week ago for exacerbation of COPD and HECTOR. Cr on admission was 11.6 and he had mod to severe hydro bilaterally on CT scan. Nephrology is taking care of him, with hydration and henderson catheter Cr Decreased to 5-6 but his b/l hydronephrosis did not improve and repeat CT yesterday still showing it. no stones. He also had blood transfusion due to low H/H. Pt denies any flank pain. Henderson is draining well clear light yellow urine. he has no f/c/n/v. his white count slightly increased since yesterday. No UC available. He has enlarged prostate and DUVALL, takes flomax daily. He states that was seen by in the past but long time ago Review of Systems All other systems reviewed negative except as stated in HPI PMFSH - History History Provided By: Significant Other - Medical / Surgical Hx Neg / Unobtainable Medical Problems Denied: Unable to Obtain - Medical History Medical History: Medical History (Last Reviewed 05/27/18 @ 12:21 by Radha Leger [employer], COURT RECORDER) COPD (chronic obstructive pulmonary disease) Hypertension - Surgical History Surgical History: Surgical History (Last Reviewed 05/25/18 @ 10:32 by Zoran Richards) H/O hernia repair - Tobacco History Second Hand Smoke Exposure: Yes Tobacco Use In Past 30 Days: Yes Smoking Status: Heavy tobacco smoker Tobacco Type: Cigarettes - Alcohol History How Often Do You Have a Drink Containing Alcohol: 4 or more times a week - Substance Use History Substance History: Active Abuse - Substance Use Type Alcohol Status: Active Route Used: By Mouth - Travel History Recent Travel in the [place] Within the Last 8 Weeks: No Recent Travel Out of the Country Within the Last 8 Weeks: No - Immunization History Tetanus Immunization: Unsure Hx Influenza Vaccine This Season: Yes Medications and Allergies Active Medications: Active Medications Acetaminophen (Tylenol Liq) 650 mg PO Q6H PRN PRN Reason: FEVER Last Admin: 05/28/18 16:13 Dose: 650 mg Hydrocodone Bitart/Acetaminophen ([place] 5/325) 1 tab PO Q6H PRN PRN Reason: PAIN SCALE 1 TO 10 Last Admin: 05/29/18 03:02 Dose: 1 tab Albuterol (Albuterol Neb (Prn)) 2.5 mg NEB Q2HR NEB PRN PRN Reason: DYSPNEA Bisacodyl (Dulcolax Supp) 10 mg RECTAL DAILY [facility] Budesonide (Pulmocort Respule Neb) 0.5 mg NEB Q12HR NEB [facility] Last Admin: 05/29/18 09:21 Dose: 0.5 mg Dextrose (D50w Vial) 50 ml IV.PUSH UNSCH LALITO Dextrose (D50w Vial) 50 ml IV.PUSH UNSCH PRN PRN Reason: PER HYPOGLYCEMIA PROTOCOL Doxepin HCl (Sinequan) 25 mg PO DAILY [facility] Last Admin: 05/29/18 09:01 Dose: 25 mg Gabapentin (Neurontin) 100 mg PO BID [facility] Last Admin: 05/29/18 09:02 Dose: 100 mg Glucagon (Glucagon Inj) 1 mg OTHER PRN PRN PRN Reason: for Hypoglycemia Protocol Heparin Sodium (Porcine) (Heparin Inj) 5,000 units SQ Q12H [facility] Last Admin: 05/29/18 11:19 Dose: 5,000 units Insulin Aspart (Novolog Insulin Suppl Scale Inj) 0 unit SQ Q6HR [facility]; Protocol Last Admin: 05/29/18 11:21 Dose: Not Given Labetalol HCl (Trandate Inj) 20 mg IV.PUSH Q20M PRN PRN Reason: sbp > 160 Last Admin: 05/24/18 15:46 Dose: 20 mg Ondansetron HCl (Zofran Inj) 4 mg IV.PUSH Q6H PRN PRN Reason: NAUSEA OR VOMITING Pantoprazole Sodium (Protonix) 40 mg PO DAILY [facility] Last Admin: 05/29/18 09:01 Dose: 40 mg Senna/Docusate Sodium (Denise-Colace) 1 tab PO BID [facility] Last Admin: 05/29/18 09:00 Dose: 1 tab Sodium Chloride (Ns Flush) 2 ml IV.FLUSH BID [facility] Last Admin: 05/29/18 09:05 Dose: Not Given Sodium Chloride (Ns Flush) 2 ml IV.FLUSH PRN PRN PRN Reason: FLUSH AFTER USING IV ACCESS Tamsulosin HCl (Flomax) 0.4 mg PO DAILY [facility] Last Admin: 05/29/18 09:01 Dose: 0.4 mg Trazodone HCl (Desyrel) 100 mg PO HS [facility] Last Admin: 05/28/18 20:52 Dose: 100 mg Vitamin D (Vitamin D3) 2,000 unit PO DAILY [facility] Last Admin: 05/29/18 09:03 Dose: 2,000 unit Allergies Allergy/AdvReac Type Severity Reaction Status Date / Time No Known Allergies Allergy Unknown Uncoded 09/18/13 09:09 Home Medications Medication Instructions Recorded Confirmed Type doxepin 25 mg PO DAILY 05/22/18 05/22/18 History gabapentin 400 mg PO DAILY 05/22/18 05/22/18 History hydrocodone-acetaminophen 1 tab PO Q4-6H PRN 05/22/18 05/22/18 History omeprazole 20 mg PO DAILY 05/22/18 05/22/18 History prednisone 10 mg PO DAILY 05/22/18 05/22/18 History tamsulosin 0.4 mg PO DAILY 05/22/18 05/22/18 History trazodone 100 mg PO DAILY 05/22/18 05/22/18 History Physical Exam Vital Signs - 24 hr 05/28/18 20:00 05/28/18 20:17 05/28/18 21:32 Temperature 98.3 F 98.8 F Pulse Rate 126 H 116 H 114 H Respiratory Rate 18 18 22 Blood Pressure 132/62 99/54 L Pulse Oximetry 95 05/28/18 21:49 05/28/18 23:38 05/29/18 00:00 Temperature 98.9 F 98 F Pulse Rate 117 H 108 H Respiratory Rate 20 20 Blood Pressure 104/57 L 107/58 L Pulse Oximetry 100 100 95 05/29/18 03:59 05/29/18 04:00 05/29/18 09:21 Temperature 98.6 F Pulse Rate 99 H 98 H Respiratory Rate 20 18 15 Blood Pressure 135/72 Pulse Oximetry 97 05/29/18 09:23 05/29/18 10:55 05/29/18 12:00 Temperature 97.7 F Pulse Rate 118 H 128 H Respiratory Rate 23 Blood Pressure 129/70 Pulse Oximetry 97 93 L 05/29/18 16:00 Temperature 98 F Pulse Rate 111 H Respiratory Rate 23 Blood Pressure 140/80 Pulse Oximetry 94 L Physical Exam: GENERAL: This is a well-nourished, well-developed patient, in no apparent distress. HEAD: Atraumatic. Normocephalic. CARDIOVASCULAR: Regular rate and rhythm RESPIRATORY: Clear to auscultation. Breath sounds decreased bilaterally. GASTROINTESTINAL: Abdomen soft, non-tender, nondistended. No hepato-splenomegaly , or palpable masses. No guarding. GENITOURINARY: Henderson is in place MUSCULOSKELETAL: Extremities without clubbing, cyanosis, or edema. NEUROLOGICAL: Awake and alert. Laboratory Results - last 24 hr 05/28/18 05/28/18 05/28/18 13:43 19:25 23:21 WBC 16.0 H RBC 3.05 L Hgb 8.8 L D Hct 27.3 L MCV 89.5 MCH 28.9 MCHC 32.3 RDW 16.9 Plt Count 159 MPV 7.5 Prelim Diff (Auto) Slide review pending Neut % (Auto) 85.1 H Lymph % (Auto) 5.0 L [place] % (Auto) 8.0 Eos % (Auto) 1.5 Baso % (Auto) 0.4 Neut # (Auto) 13.6 H Lymph # (Auto) 0.8 L [place] # (Auto) 1.3 H Eos # (Auto) 0.2 Baso # (Auto) 0.1 WBC Differential . Diff Scan Auto diff confirmed Differential Comment . Sodium Potassium Chloride Carbon Dioxide Anion Gap BUN Creatinine Estimated GFR POC Glucose 144 H Random Glucose Calcium Phosphorus Albumin Blood Type A Positive Antibody Screen Negative MTS Gel Crossmatch See Detail 05/29/18 05/29/18 05/29/18 01:02 05:35 05:52 WBC RBC Hgb 8.5 L Hct 25.5 L MCV MCH MCHC RDW Plt Count MPV Prelim Diff (Auto) Neut % (Auto) Lymph % (Auto) [place] % (Auto) Eos % (Auto) Baso % (Auto) Neut # (Auto) Lymph # (Auto) [place] # (Auto) Eos # (Auto) Baso # (Auto) WBC Differential Diff Scan Differential Comment Sodium 143 Potassium 4.5 Chloride 109 H Carbon Dioxide 23.9 Anion Gap 10 BUN 48 H Creatinine 5.34 H Estimated GFR 13 L POC Glucose 119 H Random Glucose 118 H Calcium 8.6 Phosphorus 4.0 Albumin 2.2 L Blood Type Antibody Screen MTS Gel Crossmatch 05/29/18 11:16 WBC RBC Hgb Hct MCV MCH MCHC RDW Plt Count MPV Prelim Diff (Auto) Neut % (Auto) Lymph % (Auto) [place] % (Auto) Eos % (Auto) Baso % (Auto) Neut # (Auto) Lymph # (Auto) [place] # (Auto) Eos # (Auto) Baso # (Auto) WBC Differential Diff Scan Differential Comment Sodium Potassium Chloride Carbon Dioxide Anion Gap BUN Creatinine Estimated GFR POC Glucose 106 Random Glucose Calcium Phosphorus Albumin Blood Type Antibody Screen MTS Gel Crossmatch Result Diagrams: 05/29/18 01:02 05/29/18 05:35 Imaging: ITS Impressions Chest X-Ray 05/22/18 19:08 CONCLUSION: There is a new parenchymal opacity in the right lower lung zone, new compared to the chest CT performed approximately one month ago. There is also a new small right pleural effusion. Chest CT 05/22/18 21:04 CONCLUSION: 1. There is volume loss and mild airspace opacity in the right upper lobe, right middle lobe, and left upper lobe. Material is also present within the bronchus intermedius suggesting aspiration as a potential cause. These findings are new since the prior study. 2. New small right pleural effusion. 3. The left upper lobe 8 mm spiculated nodule remains present and will ultimately require further evaluation as previously recommended. 4. Severe atherosclerotic disease and coronary artery calcification. Renal Scan w/Medication NM 05/23/18 00:00 CONCLUSION: 1. Slow parenchymal washout without fixed obstruction. Ureters appear prominent suggesting mild hydronephrosis. This could cause the sluggish excretion Abdomen/Pelvis CT 05/28/18 00:00 CONCLUSION: 1. Bilateral lower lobe consolidation and left pleural effusion. 2. Gallstone, unchanged. 3. Enlarged prostate, stable. Venous Doppler Study 05/28/18 19:31 CONCLUSION: 1. No deep venous thrombosis. Occlusive and nonocclusive thrombus in the left cephalic vein. Assessment and Plan - Plan 82y.o M with other medical issues, HECTOR and BPH Urology consulted for b/l persistent hydro - No acute intervention needed - Continue care as per primary and nephrology team - His condition is most likely chronic due to a long standing BPH/DUVALL and current renal disease. He was initially dehydrated so Cr Was significantly elevated and IV fluids improved it - He is currently with henderson cath and on flomax for BPH and no additional management from urology needed. Keep catheter for now, Add Proscar 5mg daily - Pt will need to be seen as an outpt by Urologist for further management of his BPH Discussed Condition With: Dr Isaiah LEWIS attending who also agrees with this plan
[2018-05-29] MEDS: Bisacodyl 10 MG Supp RECTAL SCH (17:12)
[2018-05-29] MEDS: traZODone 100 MG Tablet PO SCH (21:29)
[2018-05-30] MEDS: Insulin NovoLOG Aspart Correctional Sugar Inj SQ SCH ×4 (00:28→17:57)
[2018-05-30] MEDS: Bisacodyl 10 MG Supp RECTAL SCH (08:04)
[2018-05-30 09:03] LABS: Baso % (Auto) 0.5 % (0.0-2.0); Eos # (Auto) 0.2 th/mm3 (0.0-0.4); Eos % (Auto) 2.3 % (0.0-4.0); Hematocrit 29.7 % (39.0-51.0); Hemoglobin 9.8 gm/dL (13.0-17.0); Lymph # (Auto) 0.8 th/mm3 (1.0-4.8); Lymph % (Auto) 8.8 % (9.0-44.0); Mean Corpuscular HGB Conc 32.9 % (32.0-36.0); Mean Corpuscular Hemoglobin 29.7 pg (27.0-34.0); Mean Platelet Volume 7.4 fL (7.0-11.0); Mono # (Auto) 1.4 th/mm3 (0.0-0.9); Neut # (Auto) 6.5 th/mm3 (1.8-7.7); Neut % (Auto) 72.4 % (16.0-70.0); Platelet Count 237 th/mm3 (150-450); Red Cell Distribution Width 16.2 % (11.6-17.2); White Blood Count 8.9 th/mm3 (4.0-11.0)
[2018-05-30] MEDS: Gabapentin 100 MG Capsule PO SCH ×2 (09:05→21:12)
[2018-05-30] MEDS: Senna/Docusate Sodium 8.6/50 MG Tablet PO SCH ×2 (09:06→21:12)
[2018-05-30] MEDS: Heparin - SQ 10,000 UNITS/ML Vial SQ SCH ×2 (09:15→21:15)
[2018-05-30 09:38] LABS: Carbon Dioxide 25.6 meq/L (21.0-32.0); Potassium 5.1 meq/L (3.5-5.1)
--- NOTE | 2018-05-30 10:33 | FL ---
EXAM DATE: 05/30/2018 10:17 AM EDT AGE/SEX: 82 years / Male INDICATIONS: Dysphagia. Evaluate foe aspiration. CLINICAL DATA: This is the patient's subsequent encounter. Patient reports that signs and symptoms h ave been present for 1 week and indicates a pain score of 0/10. MEDICAL/SURGICAL HISTORY: Hypertension. Chronic obstructive pulmonary disease. Throat CA. . H ernia. Radiation and chemo for throat CA. COMPARISON: No prior exams available for comparison. FLUORO TIME: 1.2 IMAGE COUNT: 0 FINDINGS: A modified barium swallow was performed with speech pathology. Patient was given a variety of liquids to swallow. CONCLUSION: For a full detailed report, see report by the speech pathologist. Electronically signed by: Michael uW MD 05/30/2018 10:32 AM EDT
--- NOTE | 2018-05-30 12:10 | P.PNNP ---
Subjective Interval history: Pt states he is feeling OK today. Diet being advanced No specific complaints. <Sigrid Thompson R - Last Filed: 05/30/18 12:04> Physical Exam Vital signs: Vital Signs 05/29/18 16:00 05/29/18 20:00 05/29/18 21:22 Temperature 98 F 99.7 F H Pulse Rate 111 H 125 H 111 H Respiratory Rate 23 20 22 Blood Pressure 140/80 126/61 Pulse Oximetry 94 L 96 94 L 05/29/18 22:00 05/29/18 22:37 05/30/18 00:00 Temperature 98.8 F Pulse Rate 125 H 109 H Respiratory Rate 20 20 Blood Pressure 120/60 Pulse Oximetry 94 L 05/30/18 04:00 05/30/18 08:00 05/30/18 08:03 Temperature 98.2 F 99.8 F H Pulse Rate 117 H 117 H 118 H Respiratory Rate 20 17 14 Blood Pressure 117/75 124/70 Pulse Oximetry 95 96 95 Intake & Output 05/29/18 05/30/18 05/30/18 18:59 06:59 18:59 Intake Total 2660 / 2660 470 / 470 Output Total 3050 / 3050 1250 / 1250 Balance -390 / -390 -780 / -780 Weight 61 kg Intake: IV 2000 / 2000 250 / 250 D5W/1/2 NS Inj 1,000 ML @ 125 2000 / 2000 mls/hr IV.CONT .Q8H [facility] Rx#: [id number] Oral 660 / 660 220 / 220 Output: Urine 2100 / 2100 800 / 800 Stool 0 / 0 Urine Amount (Catheter) 950 / 950 450 / 450 Indwelling Urethral Catheter 950 / 950 450 / 450 Other: Date of Last Bowel Movement 05/29/18 05/29/18 - Constitutional no acute distress - Routine HEENT Exam Head: Present: normocephalic - Routine Neck Exam Present: supple - Routine Respiratory Exam Present: CTA bilaterally - Routine Cardiovascular Exam Present: RRR, S1, S2 - Routine Abdominal Exam Present: soft - Routine Extremities Exam Absent: edema - Routine Skin Exam Present: intact - Routine Neurological Exam Present: alert, oriented X3 - Urinary Catheter Management Indwelling Urethral Catheter Cath placed during this visit: yes Reason for continuing: Acute urinary retention Insertion date: 05/22/18 Insertion time: 21:00 <Sigrid Thompson - Last Filed: 05/30/18 12:04> Vital signs: Vital Signs 06/03/18 20:00 06/03/18 20:20 06/03/18 23:40 Temperature 99 F Pulse Rate 95 H 89 Respiratory Rate 18 18 18 Blood Pressure 113/62 Pulse Oximetry 95 06/04/18 00:00 06/04/18 03:39 06/04/18 04:00 Temperature 98.7 F 98.2 F Pulse Rate 88 67 Respiratory Rate 18 20 18 Blood Pressure 110/59 L 104/56 L Pulse Oximetry 96 100 06/04/18 08:00 06/04/18 09:15 06/04/18 09:49 Temperature 99.4 F Pulse Rate 82 91 H Respiratory Rate 18 18 18 Blood Pressure 115/57 L Pulse Oximetry 98 06/04/18 09:50 06/04/18 12:00 Temperature 98.6 F Pulse Rate 95 H Respiratory Rate 18 Blood Pressure 117/57 L Pulse Oximetry 98 95 Intake & Output 06/03/18 06/04/18 06/04/18 18:59 06:59 18:59 Intake Total 2840 / 2840 Output Total 1800 / 1800 350 / 350 Balance 1040 / 1040 -350 / -350 Weight 55.7 kg Intake: Oral 720 / 720 Oral Supplement 120 / 120 Trauma Intake Amount 2000 / 1999 Output: Urine 800 / 800 Stool 0 / 0 Hemodialysis Amount 1000 / 1000 Urine Amount (Catheter) 350 / 350 Indwelling Urethral Catheter 350 / 350 Other: Post Void Residual 200 # Voids 1 Date of Last Bowel Movement 06/02/18 06/02/18 06/02/18 # Bowel Movements 1 - Urinary Catheter Management Indwelling Urethral Catheter Cath placed during this visit: no <Cee Granados - Last Filed: 06/04/18 16:20> Assessment and Plan - Assessment (1) Acute kidney failure Code(s): N17.9 - Acute kidney failure, unspecified Status: Acute Qualifiers: Acute renal failure type: unspecified Qualified Code(s): N17.9 - Acute kidney failure, unspecified Plan: Renal functions improving slowly. UOP good. Remains to be seen where renal functions will stabilize. Reviewed urology note and state no intervention needed regarding hydro---feel this is chronic and likely related to BPH. Hopefully this trend will continue and we can avoid dialysis. Repeat BMP tomorrow. Medications should be adjusted for the patient's estimated GFR if clinically indicated. Avoid agents with significant potential for nephrotoxicity possible including NSAIDs for analgesia, iodine contrast agents. Gadolinium is contraindicated if the GFR is below 30. (2) Obstructive uropathy Code(s): N13.9 - Obstructive and reflux uropathy, unspecified Status: Chronic Plan: Urology note reviewed (3) Vitamin D deficiency Code(s): E55.9 - Vitamin D deficiency, unspecified Status: Acute Plan: Continue vitamin D supplementation (4) Hypertension Code(s): I10 - Essential (primary) hypertension Status: Acute - Plan Improved <Sigrid Thompson - Last Filed: 05/30/18 12:04> - Assessment (1) Acute kidney failure Code(s): N17.9 - Acute kidney failure, unspecified Status: Acute Qualifiers: Acute renal failure type: unspecified Qualified Code(s): N17.9 - Acute kidney failure, unspecified (2) Obstructive uropathy Code(s): N13.9 - Obstructive and reflux uropathy, unspecified Status: Chronic (3) Vitamin D deficiency Code(s): E55.9 - Vitamin D deficiency, unspecified Status: Acute (4) Hypertension Code(s): I10 - Essential (primary) hypertension Status: Acute - Attending Attestation The exam, history, and the medical decision-making described in the above note were completed with the assistance of the ROMEL. I reviewed and agree with the findings presented. <Cee Granados - Last Filed: 06/04/18 16:20>
--- NOTE | 2018-05-30 14:50 | P.PNFP ---
Subjective Interval history: resting quietly Results - Labs Result diagrams: 05/30/18 08:30 05/30/18 08:30 Abnormal lab results 05/29/18 05/30/18 05/30/18 Range/Units 17:15 00:27 08:30 RBC 3.30 L (4.50-5.90) mil/mm3 Hgb 9.8 L (13.0-17.0) gm/dL Hct 29.7 L (39.0-51.0) % Neut % (Auto) 72.4 H (16.0-70.0) % Lymph % (Auto) 8.8 L (9.0-44.0) % [place] % (Auto) 16.0 H (0.0-8.0) % Lymph # (Auto) 0.8 L (1.0-4.8) th/mm3 [place] # (Auto) 1.4 H (0.0-0.9) th/mm3 Chloride (98-107) meq/L BUN (7-18) mg/dL Creatinine (0.60-1.30) mg/dL Estimated GFR (>89) mL/min POC Glucose 149 H 113 H (68-110) mg/dl 05/30/18 Range/Units 08:30 RBC (4.50-5.90) mil/mm3 Hgb (13.0-17.0) gm/dL Hct (39.0-51.0) % Neut % (Auto) (16.0-70.0) % Lymph % (Auto) (9.0-44.0) % [place] % (Auto) (0.0-8.0) % Lymph # (Auto) (1.0-4.8) th/mm3 [place] # (Auto) (0.0-0.9) th/mm3 Chloride 109 H (98-107) meq/L BUN 29 H (7-18) mg/dL Creatinine 4.96 H (0.60-1.30) mg/dL Estimated GFR 14 L (>89) mL/min POC Glucose (68-110) mg/dl Short CBC 05/30/18 Range/Units 08:30 WBC 8.9 (4.0-11.0) th/mm3 Hgb 9.8 L (13.0-17.0) gm/dL Hct 29.7 L (39.0-51.0) % Plt Count 237 D (150-450) th/mm3 BMP 05/30/18 08:30 Sodium 145 Potassium 5.1 Chloride 109 H Carbon Dioxide 25.6 BUN 29 H Creatinine 4.96 H Calcium 9.0 - Imaging Impressions Videofluoroscopic Swallow 05/30/18 00:00 CONCLUSION: For a full detailed report, see report by the speech pathologist. Physical Exam Vital signs: Vital Signs 05/29/18 16:00 05/29/18 20:00 05/29/18 21:22 Temperature 98 F 99.7 F H Pulse Rate 111 H 125 H 111 H Respiratory Rate 23 20 22 Blood Pressure 140/80 126/61 Pulse Oximetry 94 L 96 94 L 05/29/18 22:00 05/29/18 22:37 05/30/18 00:00 Temperature 98.8 F Pulse Rate 125 H 109 H Respiratory Rate 20 20 Blood Pressure 120/60 Pulse Oximetry 94 L 05/30/18 04:00 05/30/18 08:00 05/30/18 08:03 Temperature 98.2 F 99.8 F H Pulse Rate 117 H 105 H 118 H Respiratory Rate 20 17 14 Blood Pressure 117/75 124/70 Pulse Oximetry 95 96 95 Intake & Output 05/29/18 05/30/18 05/30/18 18:59 06:59 18:59 Intake Total 2660 / 2660 470 / 470 Output Total 3050 / 3050 1250 / 1250 Balance -390 / -390 -780 / -780 Weight 61 kg Intake: IV 1999 / 1999 250 / 250 D5W/1/2 NS Inj 1,000 ML @ 125 2000 / 2000 mls/hr IV.CONT .Q8H [facility] Rx#: [id number] Oral 660 / 660 220 / 220 Output: Urine 2100 / 2100 800 / 800 Stool 0 / 0 Urine Amount (Catheter) 950 / 950 450 / 450 Indwelling Urethral Catheter 950 / 950 450 / 450 Other: Date of Last Bowel Movement 05/29/18 05/29/18 - Constitutional no acute distress, mild distress - Routine HEENT Exam Head: Present: normocephalic, atraumatic Eye: Present: EOMI, PERRL ENT: Present: mucous membranes moist - Routine Neck Exam Present: supple - Routine Respiratory Exam Present: CTA bilaterally - Urinary Catheter Management Indwelling Urethral Catheter Cath placed during this visit: yes Reason for continuing: Acute urinary retention Insertion date: 05/22/18 Insertion time: 21:00 Assessment and Plan - Assessment (1) Acute exacerbation of COPD with asthma Code(s): J44.1 - Chronic obstructive pulmonary disease with (acute) exacerbation ; J45.901 - Unspecified asthma with (acute) exacerbation Status: Acute (2) Acute kidney failure Code(s): N17.9 - Acute kidney failure, unspecified Status: Acute (3) Hypertension Code(s): I10 - Essential (primary) hypertension Status: Acute - Assessment and Plan potassium low will supplement orally 05/26 ck lab am add desyrel at hs for sleep 05/27 image urinary tract for obstruction 05/29 given 2 units prbc pt has hgb 8.5 now will follow closely 05/30 breathing better urology has een him and recomends fu as op without intervention (2) Acute kidney failure Qualifiers: Acute renal failure type: unspecified Qualified Code(s): N17.9 - Acute kidney failure, unspecified
[2018-05-30 16:52] LABS: Baso % (Auto) 0.7 % (0.0-2.0); Eos # (Auto) 0.2 th/mm3 (0.0-0.4); Eos % (Auto) 2.6 % (0.0-4.0); Lymph # (Auto) 0.7 th/mm3 (1.0-4.8); Lymph % (Auto) 9.9 % (9.0-44.0); Mean Corpuscular HGB Conc 33.3 % (32.0-36.0); Mean Corpuscular Hemoglobin 30.1 pg (27.0-34.0); Mean Corpuscular Volume 90.3 fL (80.0-100.0); Mean Platelet Volume 8.2 fL (7.0-11.0); Mono # (Auto) 1.1 th/mm3 (0.0-0.9); Neut # (Auto) 5.3 th/mm3 (1.8-7.7); Neut % (Auto) 71.8 % (16.0-70.0); Platelet Count 275 th/mm3 (150-450); Red Blood Count 3.32 mil/mm3 (4.50-5.90); Red Cell Distribution Width 16.5 % (11.6-17.2); White Blood Count 7.4 th/mm3 (4.0-11.0)
[2018-05-30] MEDS: traZODone 100 MG Tablet PO SCH (21:12)
[2018-05-31] MEDS: Insulin NovoLOG Aspart Correctional Sugar Inj SQ SCH ×4 (05:25→17:57)
[2018-05-31] MEDS: Gabapentin 100 MG Capsule PO SCH ×2 (08:43→21:43)
[2018-05-31] MEDS: Senna/Docusate Sodium 8.6/50 MG Tablet PO SCH ×2 (08:43→21:42)
[2018-05-31] MEDS: Bisacodyl 10 MG Supp RECTAL SCH (08:46)
[2018-05-31] MEDS: Heparin - SQ 10,000 UNITS/ML Vial SQ SCH ×2 (09:21→22:30)
--- NOTE | 2018-05-31 09:35 | P.PNFP ---
Subjective Interval history: feeling better [facility] Results - Labs Result diagrams: 05/30/18 16:21 05/30/18 08:30 Abnormal lab results 05/30/18 05/30/18 Range/Units 08:30 16:21 RBC 3.32 L (4.50-5.90) mil/mm3 Hgb 10.0 L (13.0-17.0) gm/dL Hct 30.0 L (39.0-51.0) % Neut % (Auto) 71.8 H (16.0-70.0) % [place] % (Auto) 15.0 H (0.0-8.0) % Lymph # (Auto) 0.7 L (1.0-4.8) th/mm3 [place] # (Auto) 1.1 H (0.0-0.9) th/mm3 Chloride 109 H (98-107) meq/L BUN 29 H (7-18) mg/dL Creatinine 4.96 H (0.60-1.30) mg/dL Estimated GFR 14 L (>89) mL/min Short CBC 05/30/18 Range/Units 16:21 WBC 7.4 (4.0-11.0) th/mm3 Hgb 10.0 L (13.0-17.0) gm/dL Hct 30.0 L (39.0-51.0) % Plt Count 275 (150-450) th/mm3 BMP 05/30/18 08:30 Sodium 145 Potassium 5.1 Chloride 109 H Carbon Dioxide 25.6 BUN 29 H Creatinine 4.96 H Calcium 9.0 - Imaging Impressions Videofluoroscopic Swallow 05/30/18 00:00 CONCLUSION: For a full detailed report, see report by the speech pathologist. Physical Exam Vital signs: Vital Signs 05/30/18 12:00 05/30/18 16:00 05/30/18 16:30 Temperature 98.2 F 98.9 F Pulse Rate 66 115 H 112 H Respiratory Rate 18 18 14 Blood Pressure 134/69 126/72 Pulse Oximetry 95 95 05/30/18 19:34 05/30/18 20:00 05/30/18 21:00 Temperature 99.0 F Pulse Rate 107 H 111 H Respiratory Rate 16 19 Blood Pressure 93/53 L Pulse Oximetry 98 98 98 05/31/18 00:00 05/31/18 04:00 07/21/18 08:49 Temperature 97.7 F 98.9 F Pulse Rate 101 H 97 H 97 H Respiratory Rate Blood Pressure 135/58 L 148/72 H Pulse Oximetry 98 100 100 Intake & Output 05/30/18 05/31/18 05/31/18 18:59 06:59 18:59 Intake Total 320 / 320 Output Total 1000 / 1000 450 / 450 Balance -1000 / -1000 -130 / -130 Weight 61.5 kg Intake: Oral 320 / 320 Output: Urine 1000 / 1000 450 / 450 Other: Date of Last Bowel Movement 05/30/18 05/30/18 05/30/18 # Bowel Movements 1 - Constitutional no acute distress - Routine HEENT Exam Head: Present: normocephalic, atraumatic Eye: Present: EOMI, PERRL ENT: Present: mucous membranes moist - Routine Neck Exam Present: supple - Routine Respiratory Exam Present: CTA bilaterally - Routine Cardiovascular Exam Present: RRR - Routine Abdominal Exam Present: soft, normoactive bowel sounds - Routine Neurological Exam Present: alert, oriented X3 - Urinary Catheter Management Indwelling Urethral Catheter Cath placed during this visit: yes Reason for continuing: Acute urinary retention Insertion date: 05/22/18 Insertion time: 21:00 Assessment and Plan - Assessment (1) Acute exacerbation of COPD with asthma Code(s): J44.1 - Chronic obstructive pulmonary disease with (acute) exacerbation ; J45.901 - Unspecified asthma with (acute) exacerbation Status: Acute (2) Acute kidney failure Code(s): N17.9 - Acute kidney failure, unspecified Status: Acute (3) Hypertension Code(s): I10 - Essential (primary) hypertension Status: Acute - Assessment and Plan potassium low will supplement orally 05/26 ck lab am add desyrel at hs for sleep 05/27 image urinary tract for obstruction 05/29 given 2 units prbc pt has hgb 8.5 now will follow closely 05/30 breathing better urology has seen him and recomends fu as op without intervention 05/31 feeling well lab stable will asses cxr hopefully will be accepted to [facility] (2) Acute kidney failure Qualifiers: Acute renal failure type: unspecified Qualified Code(s): N17.9 - Acute kidney failure, unspecified
--- NOTE | 2018-05-31 11:56 | XR ---
EXAM DATE: 05/31/2018 11:23 AM EDT AGE/SEX: 82 years / Male INDICATIONS: . Shortness of breath and chest pain. CLINICAL DATA: This is the patient's initial encounter. Patient reports that signs and symptoms have been present for 3 days and indicates a pain score of 4/10. MEDICAL/SURGICAL HISTORY: Chronic obstructive pulmonary disease. Hypertension. None. COMPARISON: [facility] [place], CHEST 1V SINGLE AP, 05/22/2018. . FINDINGS: AP and lateral views of the chest demonstrate small pleural effusions. Right midlung airspace disease . Heart normal in size. Osseous structures are intact. CONCLUSION: Right midlung airspace disease. Small bilateral pleural effusions. Electronically signed by: Vickey Almonte MD 05/31/2018 11:47 AM EDT
[2018-05-31 14:27] LABS: Calcium 8.8 mg/dL (8.5-10.1); Carbon Dioxide 28.6 meq/L (21.0-32.0); Potassium 4.9 meq/L (3.5-5.1)
--- NOTE | 2018-05-31 15:29 | P.PNNP ---
Subjective Interval history: Patient resting comfortably in bed. Specifically denied any uremic symptoms on questioning. Physical Exam Vital signs: Vital Signs 05/30/18 16:00 05/30/18 16:30 05/30/18 19:34 Temperature 98.9 F Pulse Rate 115 H 112 H 107 H Respiratory Rate 18 14 16 Blood Pressure 126/72 Pulse Oximetry 95 98 05/30/18 20:00 05/30/18 21:00 05/31/18 00:00 Temperature 99.0 F 97.7 F Pulse Rate 111 H 101 H Respiratory Rate 19 18 Blood Pressure 93/53 L 135/58 L Pulse Oximetry 98 98 98 05/31/18 04:00 05/31/18 08:00 05/31/18 08:49 Temperature 98.9 F 98 F Pulse Rate 97 H 104 H 97 H Respiratory Rate 18 16 18 Blood Pressure 148/72 H 130/72 Pulse Oximetry 100 96 100 05/31/18 10:45 05/31/18 12:00 Temperature 98 F Pulse Rate 103 H 95 H Respiratory Rate 17 Blood Pressure 120/59 L Pulse Oximetry 94 L Intake & Output 05/30/18 05/31/18 05/31/18 18:59 06:59 18:59 Intake Total 320 / 320 Output Total 1000 / 1000 450 / 450 Balance -1000 / -1000 -130 / -130 Weight 61.5 kg Intake: Oral 320 / 320 Output: Urine 1000 / 1000 450 / 450 Other: Date of Last Bowel Movement 05/30/18 05/30/18 05/30/18 # Bowel Movements 1 Narrative: GENERAL: Patient lying comfortably in bed. SKIN: Warm and dry. HEAD: Normocephalic. EYES: No scleral icterus. No injection or drainage. NECK: Supple, trachea midline. No JVD or lymphadenopathy. CARDIOVASCULAR: Regular rate and rhythm without murmurs, gallops, or rubs. Trace edema lower extremities RESPIRATORY: Breath sounds equal bilaterally. No accessory muscle use. GASTROINTESTINAL: Abdomen soft, non-tender, nondistended. - Urinary Catheter Management Indwelling Urethral Catheter Cath placed during this visit: yes Reason for continuing: Acute urinary retention Insertion date: 05/22/18 Insertion time: 21:00 Assessment and Plan - Assessment (1) Acute kidney failure Code(s): N17.9 - Acute kidney failure, unspecified Status: Acute Qualifiers: Acute renal failure type: unspecified Qualified Code(s): N17.9 - Acute kidney failure, unspecified Plan: Renal indices are actually worse today. Urology consultation was reviewed and no intervention planned as they believe that imaging studies are revealing chronic changes. 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 There is no indication to initiate dialysis presently as the patient has no uremic symptoms and there is no evidence of significant fluid retention. I did discuss with him however that renal replacement therapy i.e. dialysis will likely be required in the next few weeks. Educational literature regarding the severity of his renal insufficiency and plan of management reviewed with him. He is not a peritoneal dialysis candidate in my opinion due to physical limitations. We will require evaluation by vascular surgery for future placement of an AV dialysis fistula or AV dialysis graft. Patient could be discharged to rehab with close follow-up with myself. Medications should be adjusted for the patient's estimated GFR if clinically indicated. Avoid agents with significant potential for nephrotoxicity possible including NSAIDs for analgesia, iodine contrast agents. Gadolinium is contraindicated if the GFR is below 30. (2) Obstructive uropathy Code(s): N13.9 - Obstructive and reflux uropathy, unspecified Status: Chronic Plan: Urology note reviewed (3) Vitamin D deficiency Code(s): E55.9 - Vitamin D deficiency, unspecified Status: Acute Plan: Continue vitamin D supplementation (4) Hypertension Code(s): I10 - Essential (primary) hypertension Status: Acute - Plan Improved
[2018-05-31] MEDS: traZODone 100 MG Tablet PO SCH (21:42)
[2018-06-01] MEDS: Insulin NovoLOG Aspart Correctional Sugar Inj SQ SCH ×5 (03:35→23:25)
[2018-06-01] MEDS: Senna/Docusate Sodium 8.6/50 MG Tablet PO SCH ×2 (09:42→20:17)
[2018-06-01] MEDS: Gabapentin 100 MG Capsule PO SCH ×2 (09:43→20:17)
[2018-06-01] MEDS: Bisacodyl 10 MG Supp RECTAL SCH (09:43)
[2018-06-01] MEDS: Heparin - SQ 10,000 UNITS/ML Vial SQ SCH ×2 (10:27→23:24)
--- NOTE | 2018-06-01 11:16 | P.PNFP ---
Subjective Interval history: being evaluated by [facility] surg for shunt will hold dc to rehab Results - Labs Result diagrams: 05/30/18 16:21 05/31/18 12:49 Abnormal lab results 05/31/18 05/31/18 05/31/18 Range/Units 11:51 12:49 16:59 Chloride 109 H (98-107) meq/L BUN 48 H (7-18) mg/dL Creatinine 5.82 H (0.60-1.30) mg/dL Estimated GFR 11 L (>89) mL/min POC Glucose 128 H 173 H (68-110) mg/dl BMP 05/31/18 12:49 Sodium 145 Potassium 4.9 Chloride 109 H Carbon Dioxide 28.6 BUN 48 H Creatinine 5.82 H Calcium 8.8 - Imaging Impressions Chest X-Ray 05/31/18 00:00 CONCLUSION: Right midlung airspace disease. Small bilateral pleural effusions. Physical Exam Vital signs: Vital Signs 05/31/18 12:00 05/31/18 16:00 05/31/18 20:00 Temperature 98 F 98.1 F 98 F Pulse Rate 95 H 71 97 H Respiratory Rate 17 16 16 Blood Pressure 120/59 L 142/68 H 132/69 Pulse Oximetry 94 L 94 L 95 05/31/18 20:54 06/01/18 00:00 06/01/18 04:00 Temperature 97.9 F 98.5 F Pulse Rate 95 H 93 H 91 H Respiratory Rate 24 18 17 Blood Pressure 154/74 H 141/65 H Pulse Oximetry 94 L 97 97 06/01/18 06:52 06/01/18 08:00 06/01/18 08:11 Temperature 98.1 F Pulse Rate 95 H 91 H Respiratory Rate 16 16 14 Blood Pressure 137/69 Pulse Oximetry 96 06/01/18 08:12 06/01/18 08:16 Temperature Pulse Rate 103 H Respiratory Rate Blood Pressure Pulse Oximetry 97 Intake & Output 05/31/18 06/01/18 06/01/18 18:59 06:59 18:59 Output Total 650 / 650 600 / 600 Balance -650 / -650 -600 / -600 Weight 61.4 kg Output: Urine Amount (Catheter) 650 / 650 600 / 600 Indwelling Urethral Catheter 650 / 650 600 / 600 Other: Date of Last Bowel Movement 05/30/18 06/01/1818 # Bowel Movements 1 - Constitutional no acute distress - Routine HEENT Exam Head: Present: normocephalic Eye: Present: EOMI, PERRL ENT: Present: mucous membranes moist - Routine Neck Exam Present: supple - Routine Respiratory Exam Present: CTA bilaterally - Routine Cardiovascular Exam Present: RRR - Routine Abdominal Exam Present: soft, normoactive bowel sounds - Urinary Catheter Management Indwelling Urethral Catheter Cath placed during this visit: yes Reason for continuing: Acute urinary retention Insertion date: 05/22/18 Insertion time: 21:00 Assessment and Plan - Assessment (1) Acute exacerbation of COPD with asthma Code(s): J44.1 - Chronic obstructive pulmonary disease with (acute) exacerbation ; J45.901 - Unspecified asthma with (acute) exacerbation Status: Acute (2) Acute kidney failure Code(s): N17.9 - Acute kidney failure, unspecified Status: Acute (3) Hypertension Code(s): I10 - Essential (primary) hypertension Status: Acute - Assessment and Plan potassium low will supplement orally 05/26 ck lab am add desyrel at hs for sleep 05/27 image urinary tract for obstruction 05/29 given 2 units prbc pt has hgb 8.5 now will follow closely 05/30 breathing better urology has seen him and recomends fu as op without intervention 05/31 feeling well lab stable will asses cxr hopefully will be accepted to [facility] 06/01 await vasc surg eval for shunt has headache will add [place] (2) Acute kidney failure Qualifiers: Acute renal failure type: unspecified Qualified Code(s): N17.9 - Acute kidney failure, unspecified
--- NOTE | 2018-06-01 12:58 | P.PNCA ---
- Note Subjective/Hospital Course: 06/01/2018 Referral received for AV fistula to Dr. Leal who is currently out of town and I am covering the service until next week. Once back will transfer the care to Dr. Leal. Thanks J Objective: Vital Signs - 24 hr 05/31/18 16:00 05/31/18 20:00 05/31/18 20:54 Temperature 98.1 F 98 F Pulse Rate 71 97 H 95 H Respiratory Rate 16 16 24 Blood Pressure 142/68 H 132/69 Pulse Oximetry 94 L 95 94 L 06/01/18 00:00 06/01/18 04:00 06/01/18 06:52 Temperature 97.9 F 98.5 F Pulse Rate 93 H 91 H Respiratory Rate 18 17 16 Blood Pressure 154/74 H 141/65 H Pulse Oximetry 97 97 06/01/18 08:00 06/01/18 08:11 06/01/18 08:12 Temperature 98.1 F Pulse Rate 95 H 91 H Respiratory Rate 16 14 Blood Pressure 137/69 Pulse Oximetry 96 97 06/01/18 08:16 06/01/18 12:00 Temperature Pulse Rate 103 H 101 H Respiratory Rate Blood Pressure Pulse Oximetry Labs: Laboratory Results - last 12 hr 06/01/18 06/01/18 05:17 11:30 POC Glucose 96 123 H Result Diagrams: 05/30/18 16:21 05/31/18 12:49
[2018-06-01] MEDS: Butalbital/APAP/Caff 50/325/40 MG Tablet PO PRN (15:12)
[2018-06-01] MEDS: traZODone 100 MG Tablet PO SCH (20:17)
[2018-06-02] MEDS: Butalbital/APAP/Caff 50/325/40 MG Tablet PO PRN ×2 (03:32→19:00)
[2018-06-02] MEDS: Insulin NovoLOG Aspart Correctional Sugar Inj SQ SCH ×4 (06:14→23:54)
[2018-06-02 09:26] LABS: Calcium 9.1 mg/dL (8.5-10.1); Carbon Dioxide 28.6 meq/L (21.0-32.0); Potassium 5.9 meq/L (3.5-5.1)
[2018-06-02] MEDS: Heparin - SQ 10,000 UNITS/ML Vial SQ SCH ×2 (09:27→23:53)
[2018-06-02] MEDS: Senna/Docusate Sodium 8.6/50 MG Tablet PO SCH ×2 (09:28→20:05)
[2018-06-02] MEDS: Bisacodyl 10 MG Supp RECTAL SCH (09:29)
[2018-06-02] MEDS: Gabapentin 100 MG Capsule PO SCH ×2 (09:29→20:04)
--- NOTE | 2018-06-02 12:13 | P.PNNP ---
Subjective Interval history: Pt laying in bed in NAD Overall says he is feeling OK, but tired. Physical Exam Vital signs: Vital Signs 06/01/18 16:00 06/01/18 19:11 06/01/18 19:50 Temperature 97.9 F Pulse Rate 92 H 92 H Respiratory Rate 17 20 20 Blood Pressure 118/70 Pulse Oximetry 98 98 06/01/18 20:00 06/02/18 00:00 06/02/18 00:30 Temperature 98 F 97.8 F Pulse Rate 97 H 92 H 91 H Respiratory Rate 16 16 18 Blood Pressure 126/68 130/66 Pulse Oximetry 97 97 06/02/18 03:45 06/02/18 04:00 06/02/18 04:28 Temperature 98 F Pulse Rate 111 H 92 H Respiratory Rate 22 16 18 Blood Pressure 126/74 Pulse Oximetry 97 06/02/18 06:14 06/02/18 08:00 06/02/18 08:45 Temperature 97.7 F Pulse Rate 93 H 86 Respiratory Rate 20 18 16 Blood Pressure 134/74 Pulse Oximetry 94 L 94 L 06/02/18 09:05 Temperature Pulse Rate 89 Respiratory Rate Blood Pressure Pulse Oximetry Intake & Output 06/01/18 06/02/18 06/02/18 18:59 06:59 18:59 Output Total 600 / 600 Balance -600 / -600 Weight 56.6 kg Output: Urine Amount (Catheter) 600 / 600 Indwelling Urethral Catheter 600 / 600 Other: Date of Last Bowel Movement 06/01/18 06/01/18 06/02/18 # Bowel Movements 1 - Constitutional no acute distress - Routine HEENT Exam Head: Present: normocephalic - Routine Neck Exam Present: supple - Routine Respiratory Exam Present: accessory muscle use, CTA bilaterally - Routine Cardiovascular Exam Present: RRR, S1, S2 - Routine Abdominal Exam Present: soft - Routine Skin Exam Present: intact - Routine Neurological Exam Present: alert, oriented X3 - Routine Psychiatric Exam Present: normal affect, normal thought process - Urinary Catheter Management Indwelling Urethral Catheter Cath placed during this visit: yes Reason for continuing: Acute urinary retention Insertion date: 05/22/18 Insertion time: 21:00 Assessment and Plan - Assessment (1) Acute kidney failure Code(s): N17.9 - Acute kidney failure, unspecified Status: Acute Qualifiers: Acute renal failure type: unspecified Qualified Code(s): N17.9 - Acute kidney failure, unspecified Plan: The patient's renal functions have unfortunately deteriorated further and now with hyperkalemia. After long discussion with the patient and his niece, Gabriela, via telephone both are in verbal agreement to proceed with HD today. As his renal functions have been severely impaired throughout his admission, it is doubtful if he will make renal recovery in the future, but cannot be certain about this. He was advised of the potential risks involvement with catheter placement as well as hemodialysis including bleeding, infection, cardiac arrhythmia, and . He was in verbal agreement to proceed today, but says that he in uncertain if he would want to continue forever. This is something that can be re-addressed in the near future, but for now given his hyperkalemia and severe azotemia, dialysis is considered urgent and he is willing to proceed today. Called IR and order placed for VasCath dish cloth inspector notified. Medications should be adjusted for the patient's estimated GFR if clinically indicated. Avoid agents with significant potential for nephrotoxicity possible including NSAIDs for analgesia, iodine contrast agents. Gadolinium is contraindicated if the GFR is below 30. (2) Obstructive uropathy Code(s): N13.9 - Obstructive and reflux uropathy, unspecified Status: Chronic Plan: Urology note reviewed Believed to be chronic (3) Vitamin D deficiency Code(s): E55.9 - Vitamin D deficiency, unspecified Status: Acute Plan: Continue vitamin D supplementation (4) Hypertension Code(s): I10 - Essential (primary) hypertension Status: Acute - Plan Improved
[2018-06-02] MEDS ORDERED: Heparin 10,000 UNITS/10 ML Vial (for IV use) OTHER PRN ×2 (12:14)
[2018-06-02] MEDS ORDERED: Albumin Human 25% Inj 100 ML IV.SIG PRN (12:14)
[2018-06-02] MEDS ORDERED: Sod Chloride 0.9% Inj 1,000 ML IV.CONT PRN (12:14)
[2018-06-02] MEDS ORDERED: Gelatin 12 MM/7 MM Topical Foam TOPICAL PRN (12:14)
[2018-06-02] MEDS ORDERED: Acetaminophen 325 MG Tablet PO PRN (12:14)
[2018-06-02] MEDS ORDERED: Sod Chloride 0.9% Inj 1,000 ML OTHER PRN ×2 (12:14)
--- NOTE | 2018-06-02 15:30 | P.RAD ---
Post Procedure Progress Note - Pre Procedure Diagnosis (1) Acute kidney failure - Post Procedure Diagnosis (1) Acute kidney failure - Procedure Information Procedure Date: 06/02/18 Supervising Radiologist: Greg Mark Jr, MD Estimated blood loss (mL): 0 Anesthesia: Local - Plan of Activity Patient to Unit: Nursing Unit Patient Condition: Good See PACS Report for procedural detail/treatment. [facility] Radiology Procedures right Internal Jugular Hemodialysis Catheter Non-Tunneled Placement Device: dual lumen Romanian: 14 - Additional Detail Findings: DEBRA hernandez placed. Functions well. OK to use.
[2018-06-02] MEDS ORDERED: Heparin 10,000 UNITS/10 ML Vial (for IV use) OTHER ONE (15:37)
--- NOTE | 2018-06-02 16:21 | IR ---
EXAM DATE: 06/02/2018 3:49 PM EDT AGE/SEX: 82 years / Male INDICATIONS: Patient presents with renal failure in need of dialysis catheter placement for hemodial ysis. CLINICAL DATA: This is the patient's initial encounter. Patient reports that signs and symptoms have been present for 2 weeks and indicates a pain score of 0/10. MEDICAL/SURGICAL HISTORY: . COPD HTN . H/O hernia repair COMPARISON: No prior exams available for comparison. FLUORO TIME (min): 0.3 IMAGE SERIES: 2 ACCESS SITE: Right internal jugular vein MEDICATION(S): 2,200 UNITS Heparin IV DEVICE(S): 14 Hebrew double lumen 15CM Schon catheter . . PROCEDURE : 1. Ultrasound guided venipuncture. 2. Fluoroscopic guidance. 3. Central line placement. The risks, benefits and alternatives to the procedure were explained and verbal and written consent w as obtained. The site was prepped in sterile fashion. Full sterile technique was used, including ca p, mask, sterile gloves and gown and a large sterile sheet. Hand hygiene and 2% chlorhexidine prep w as utilized per protocol for cutaneous antisepsis with appropriate dry time for site. Sterile gel an d sterile probe cover were utilized for ultrasound guidance. The skin and subcutaneous tissues were infiltrated with local anesthetic solution. A suitable site a santana the vein was selected with ultrasound and fluoroscopic guidance. A small incision was made. Th e vein was accessed under direct ultrasound visualization using the micropuncture technique. The lyric ropuncture set was exchanged for a 0.035 wire. The tract was dilated. The catheter was advanced int o position under direct fluoroscopic visualization, and was advanced with the tip at the junction of the superior vena cava and rt atrium. The catheter was fixed in place with suture and a sterile dres sing was applied. The patient tolerated the procedure well and there were no complications. CONCLUSION: 1. Uncomplicated line placement as above. Electronically signed by: Greg Mark MD 06/02/2018 4:20 PM EDT
[2018-06-02 17:02] LABS: Baso % (Auto) 1.1 % (0.0-2.0); Eos # (Auto) 0.1 th/mm3 (0.0-0.4); Hematocrit 28.8 % (39.0-51.0); Hemoglobin 9.4 gm/dL (13.0-17.0); Lymph # (Auto) 0.7 th/mm3 (1.0-4.8); Mean Corpuscular HGB Conc 32.8 % (32.0-36.0); Mean Corpuscular Hemoglobin 29.9 pg (27.0-34.0); Mean Corpuscular Volume 91.3 fL (80.0-100.0); Mean Platelet Volume 7.3 fL (7.0-11.0); Mono # (Auto) 0.2 th/mm3 (0.0-0.9); Mono % (Auto) 5.6 % (0.0-8.0); Neut # (Auto) 2.6 th/mm3 (1.8-7.7); Neut % (Auto) 70.3 % (16.0-70.0); Platelet Count 287 th/mm3 (150-450); Red Blood Count 3.15 mil/mm3 (4.50-5.90); Red Cell Distribution Width 15.9 % (11.6-17.2); White Blood Count 3.7 th/mm3 (4.0-11.0)
[2018-06-02 17:25] LABS: Calcium 8.7 mg/dL (8.5-10.1); Carbon Dioxide 33.5 meq/L (21.0-32.0); Potassium 4.5 meq/L (3.5-5.1)
[2018-06-02] MEDS: traZODone 100 MG Tablet PO SCH (20:04)
--- NOTE | 2018-06-02 20:28 | P.PNFP ---
Subjective Interval history: had initial dialysis today Results - Labs Result diagrams: 06/02/18 16:50 06/02/18 16:50 Abnormal lab results 06/02/18 06/02/18 06/02/18 Range/Units 07:49 12:05 16:50 WBC 3.7 L (4.0-11.0) th/mm3 RBC 3.15 L (4.50-5.90) mil/mm3 Hgb 9.4 L (13.0-17.0) gm/dL Hct 28.8 L (39.0-51.0) % Neut % (Auto) 70.3 H (16.0-70.0) % Lymph # (Auto) 0.7 L (1.0-4.8) th/mm3 Sodium 147 H (136-145) meq/L Potassium 5.9 H D (3.5-5.1) meq/L Chloride 111 H (98-107) meq/L Carbon Dioxide (21.0-32.0) meq/L Anion Gap (5-15) meq/L BUN 56 H (7-18) mg/dL Creatinine 7.52 H (0.60-1.30) mg/dL Estimated GFR 8 L (>89) mL/min POC Glucose 127 H (68-110) mg/dl 06/02/18 Range/Units 16:50 WBC (4.0-11.0) th/mm3 RBC (4.50-5.90) mil/mm3 Hgb (13.0-17.0) gm/dL Hct (39.0-51.0) % Neut % (Auto) (16.0-70.0) % Lymph # (Auto) (1.0-4.8) th/mm3 Sodium (136-145) meq/L Potassium (3.5-5.1) meq/L Chloride 108 H (98-107) meq/L Carbon Dioxide 33.5 H (21.0-32.0) meq/L Anion Gap 4 L (5-15) meq/L BUN 45 H (7-18) mg/dL Creatinine 6.31 H (0.60-1.30) mg/dL Estimated GFR 10 L (>89) mL/min POC Glucose (68-110) mg/dl Short CBC 06/02/18 Range/Units 16:50 WBC 3.7 L (4.0-11.0) th/mm3 Hgb 9.4 L (13.0-17.0) gm/dL Hct 28.8 L (39.0-51.0) % Plt Count 287 (150-450) th/mm3 BMP 06/02/18 06/02/18 07:49 16:50 Sodium 147 H 145 Potassium 5.9 H D 4.5 D Chloride 111 H 108 H Carbon Dioxide 28.6 33.5 H BUN 56 H 45 H Creatinine 7.52 H 6.31 H Calcium 9.1 8.7 - Imaging Impressions Catheter Placement 06/02/18 12:13 CONCLUSION: 1. Uncomplicated line placement as above. Physical Exam Vital signs: Vital Signs 06/02/18 00:00 06/02/18 00:30 06/02/18 03:45 Temperature 97.8 F Pulse Rate 92 H 91 H 111 H Respiratory Rate 16 18 22 Blood Pressure 130/66 Pulse Oximetry 97 06/02/18 04:00 06/02/18 04:28 06/02/18 06:14 Temperature 98 F Pulse Rate 92 H Respiratory Rate 16 18 20 Blood Pressure 126/74 Pulse Oximetry 97 06/02/18 08:00 06/02/18 08:45 06/02/18 09:05 Temperature 97.7 F Pulse Rate 93 H 86 89 Respiratory Rate 18 16 Blood Pressure 134/74 Pulse Oximetry 94 L 94 L 06/02/18 12:00 06/02/18 19:27 Temperature 98.2 F Pulse Rate 100 H 100 H Respiratory Rate 20 18 Blood Pressure 158/81 H Pulse Oximetry 96 96 Intake & Output 06/02/18 06/02/18 06/03/18 06:59 18:59 06:59 Intake Total 0 / 0 Output Total 600 / 600 500 / 500 Balance -600 / -600 -500 / -500 Weight 56.6 kg Intake: Oral 0 / 0 Output: Hemodialysis Amount 500 / 500 Urine Amount (Catheter) 600 / 600 Indwelling Urethral Catheter 600 / 600 Other: Date of Last Bowel Movement 06/01/18 06/02/18 06/02/18 - Constitutional no acute distress - Routine HEENT Exam Head: Present: normocephalic, atraumatic Eye: Present: EOMI, PERRL ENT: Present: mucous membranes moist - Routine Neck Exam Present: supple - Routine Respiratory Exam Present: accessory muscle use - Routine Cardiovascular Exam Present: RRR - Routine Abdominal Exam Present: soft, normoactive bowel sounds - Urinary Catheter Management Indwelling Urethral Catheter Cath placed during this visit: yes Reason for continuing: Acute urinary retention Insertion date: 05/22/18 Insertion time: 21:00 Assessment and Plan - Assessment (1) Acute exacerbation of COPD with asthma Code(s): J44.1 - Chronic obstructive pulmonary disease with (acute) exacerbation ; J45.901 - Unspecified asthma with (acute) exacerbation Status: Acute (2) Acute kidney failure Code(s): N17.9 - Acute kidney failure, unspecified Status: Acute (3) Hypertension Code(s): I10 - Essential (primary) hypertension Status: Acute - Assessment and Plan potassium low will supplement orally 05/26 ck lab am add desyrel at hs for sleep 05/27 image urinary tract for obstruction 05/29 given 2 units prbc pt has hgb 8.5 now will follow closely 05/30 breathing better urology has seen him and recomends fu as op without intervention 05/31 feeling well lab stable will asses cxr hopefully will be accepted to [facility] 06/01 await vasc surg eval for shunt has headache will add [facility] 06/02 pt had first dialysis late today if remains stable tonight will transfer to rehab in am (2) Acute kidney failure Qualifiers: Acute renal failure type: unspecified Qualified Code(s): N17.9 - Acute kidney failure, unspecified
[2018-06-02 22:13] LABS: Hepatitis A IgM Antibody Nonreactive (Nonreactive); Hepatitits B Surface Antigen Nonreactive (Nonreactive)
[2018-06-02 23:26] LABS: Baso # (Auto) 0.1 th/mm3 (0.0-0.2); Baso % (Auto) 0.9 % (0.0-2.0); Eos # (Auto) 0.2 th/mm3 (0.0-0.4); Eos % (Auto) 3.7 % (0.0-4.0); Hematocrit 26.6 % (39.0-51.0); Hemoglobin 8.9 gm/dL (13.0-17.0); Lymph # (Auto) 0.8 th/mm3 (1.0-4.8); Lymph % (Auto) 13.5 % (9.0-44.0); Mean Corpuscular HGB Conc 33.6 % (32.0-36.0); Mean Corpuscular Hemoglobin 30.7 pg (27.0-34.0); Mean Corpuscular Volume 91.5 fL (80.0-100.0); Mean Platelet Volume 7.1 fL (7.0-11.0); Mono # (Auto) 0.6 th/mm3 (0.0-0.9); Mono % (Auto) 10.7 % (0.0-8.0); Neut # (Auto) 4.2 th/mm3 (1.8-7.7); Neut % (Auto) 71.2 % (16.0-70.0); Platelet Count 237 th/mm3 (150-450); Red Blood Count 2.91 mil/mm3 (4.50-5.90); Red Cell Distribution Width 16.2 % (11.6-17.2); White Blood Count 5.9 th/mm3 (4.0-11.0)
[2018-06-02 23:36] LABS: Calcium 7.9 mg/dL (8.5-10.1); Carbon Dioxide 31.8 meq/L (21.0-32.0); Potassium 4.7 meq/L (3.5-5.1)
[2018-06-03] MEDS: Butalbital/APAP/Caff 50/325/40 MG Tablet PO PRN ×3 (03:02→22:13)
[2018-06-03] MEDS: Insulin NovoLOG Aspart Correctional Sugar Inj SQ SCH ×3 (06:38→20:05)
[2018-06-03 07:52] LABS: Baso % (Auto) 1.1 % (0.0-2.0); Eos # (Auto) 0.2 th/mm3 (0.0-0.4); Eos % (Auto) 4.3 % (0.0-4.0); Hematocrit 28.7 % (39.0-51.0); Hemoglobin 9.5 gm/dL (13.0-17.0); Lymph # (Auto) 0.6 th/mm3 (1.0-4.8); Mean Corpuscular Volume 90.8 fL (80.0-100.0); Mean Platelet Volume 7.1 fL (7.0-11.0); Mono # (Auto) 0.6 th/mm3 (0.0-0.9); Mono % (Auto) 12.5 % (0.0-8.0); Neut # (Auto) 3.2 th/mm3 (1.8-7.7); Neut % (Auto) 69.1 % (16.0-70.0); Platelet Count 260 th/mm3 (150-450); Red Blood Count 3.17 mil/mm3 (4.50-5.90); Red Cell Distribution Width 15.8 % (11.6-17.2); White Blood Count 4.6 th/mm3 (4.0-11.0)
[2018-06-03 08:19] LABS: Albumin 2.2 g/dL (3.4-5.0); Calcium 8.2 mg/dL (8.5-10.1); Carbon Dioxide 31.9 meq/L (21.0-32.0)
[2018-06-03] MEDS: Gabapentin 100 MG Capsule PO SCH ×2 (08:43→20:04)
[2018-06-03] MEDS: Senna/Docusate Sodium 8.6/50 MG Tablet PO SCH ×2 (08:43→20:04)
[2018-06-03] MEDS: Bisacodyl 10 MG Supp RECTAL SCH (08:43)
--- NOTE | 2018-06-03 12:15 | P.PNNP ---
Subjective Interval history: Pt seen during 2nd HD and seems to be tolerating well. No specific complaints. Seems more alert today. <Sigrid Thompson R - Last Filed: 06/03/18 12:09> Physical Exam Vital signs: Vital Signs 06/02/18 19:27 06/02/18 20:00 06/02/18 21:59 Temperature 98.0 F Pulse Rate 100 H 102 H Respiratory Rate 18 18 20 Blood Pressure 130/70 Pulse Oximetry 96 98 06/02/18 22:09 06/02/18 23:55 06/03/18 00:00 Temperature 98.0 F Pulse Rate 82 Respiratory Rate 20 18 16 Blood Pressure 128/69 Pulse Oximetry 95 06/03/18 04:00 06/03/18 08:00 Temperature 98.1 F 99 F Pulse Rate 79 86 Respiratory Rate 14 20 Blood Pressure 121/67 152/73 H Pulse Oximetry 96 92 L Intake & Output 06/02/18 06/03/18 06/03/18 18:59 06:59 18:59 Intake Total 0 / 0 Output Total 500 / 500 500 / 500 Balance -500 / -500 -500 / -500 Weight 56.6 kg Intake: Oral 0 / 0 Output: Hemodialysis Amount 500 / 500 500 / 500 Other: Post Void Residual 200 # Voids 1 Date of Last Bowel Movement 06/02/18 06/02/18 - Constitutional no acute distress - Routine HEENT Exam Head: Present: normocephalic - Routine Neck Exam Present: supple - Routine Respiratory Exam Present: CTA bilaterally - Routine Cardiovascular Exam Present: RRR, S1, S2 - Routine Extremities Exam Absent: edema - Routine Skin Exam Present: intact - Routine Neurological Exam Present: alert, oriented X3 - Routine Psychiatric Exam Present: normal affect, normal thought process - Urinary Catheter Management Indwelling Urethral Catheter Cath placed during this visit: yes Reason for continuing: Acute urinary retention Insertion date: 05/22/18 Insertion time: 21:00 <Sigrid Thompson - Last Filed: 06/03/18 12:09> Vital signs: Vital Signs 06/03/18 20:00 06/03/18 20:20 06/03/18 23:40 Temperature 99 F Pulse Rate 95 H 89 Respiratory Rate 18 18 18 Blood Pressure 113/62 Pulse Oximetry 95 06/04/18 00:00 06/04/18 03:39 06/04/18 04:00 Temperature 98.7 F 98.2 F Pulse Rate 88 67 Respiratory Rate 18 20 18 Blood Pressure 110/59 L 104/56 L Pulse Oximetry 96 100 06/04/18 08:00 06/04/18 09:15 06/04/18 09:49 Temperature 99.4 F Pulse Rate 82 91 H Respiratory Rate 18 18 18 Blood Pressure 115/57 L Pulse Oximetry 98 06/04/18 09:50 06/04/18 12:00 Temperature 98.6 F Pulse Rate 95 H Respiratory Rate 18 Blood Pressure 117/57 L Pulse Oximetry 98 95 Intake & Output 06/03/18 06/04/18 06/04/18 18:59 06:59 18:59 Intake Total 2840 / 2840 Output Total 1800 / 1800 350 / 350 Balance 1040 / 1040 -350 / -350 Weight 55.7 kg Intake: Oral 720 / 720 Oral Supplement 120 / 120 Trauma Intake Amount 2000 / 2000 Output: Urine 800 / 800 Stool 0 / 0 Hemodialysis Amount 1000 / 1000 Urine Amount (Catheter) 350 / 350 Indwelling Urethral Catheter 350 / 350 Other: Post Void Residual 200 # Voids 1 Date of Last Bowel Movement 06/02/18 06/02/18 06/02/18 # Bowel Movements 1 - Urinary Catheter Management Indwelling Urethral Catheter Cath placed during this visit: no <Cee Granados - Last Filed: 06/04/18 16:21> Assessment and Plan - Assessment (1) Acute kidney failure Code(s): N17.9 - Acute kidney failure, unspecified Status: Acute Qualifiers: Acute renal failure type: unspecified Qualified Code(s): N17.9 - Acute kidney failure, unspecified Plan: Pt s/p HD 06/02 and again today. Seen during 2nd session and tolerating well. Will plan for next HD this coming and likely continue on TTS schedule thereafter. Pt seemed more alert today and did voice that he would like to continue HD. Apparent plans to discharge to [facility]? Discharge does not need to be held to [facility] pending AVF placement. This can be done as outpatient. Please contact us if there are plans to discharge him to another rehab so outpatient dialysis can be arranged. Medications should be adjusted for the patient's estimated GFR if clinically indicated. Avoid agents with significant potential for nephrotoxicity possible including NSAIDs for analgesia, iodine contrast agents. Gadolinium is contraindicated if the GFR is below 30. (2) Obstructive uropathy Code(s): N13.9 - Obstructive and reflux uropathy, unspecified Status: Chronic Plan: Urology note reviewed Believed to be chronic (3) Vitamin D deficiency Code(s): E55.9 - Vitamin D deficiency, unspecified Status: Acute Plan: Continue vitamin D supplementation (4) Hypertension Code(s): I10 - Essential (primary) hypertension Status: Acute - Plan Improved <Sigrid Thompson - Last Filed: 06/03/18 12:09> - Assessment (1) Acute kidney failure Code(s): N17.9 - Acute kidney failure, unspecified Status: Acute Qualifiers: Acute renal failure type: unspecified Qualified Code(s): N17.9 - Acute kidney failure, unspecified (2) Obstructive uropathy Code(s): N13.9 - Obstructive and reflux uropathy, unspecified Status: Chronic (3) Vitamin D deficiency Code(s): E55.9 - Vitamin D deficiency, unspecified Status: Acute (4) Hypertension Code(s): I10 - Essential (primary) hypertension Status: Acute - Attending Attestation The exam, history, and the medical decision-making described in the above note were completed with the assistance of the PAOrestes. I reviewed and agree with the findings presented. I attest that I had a [id number] encounter with the patient on the same day, and personally performed and documented my assessment and findings in the medical record. <Cee Granados - Last Filed: 06/04/18 16:21>
[2018-06-03] MEDS: Heparin - SQ 10,000 UNITS/ML Vial SQ SCH ×2 (13:16→22:13)
--- NOTE | 2018-06-03 19:18 | P.PNFP ---
Subjective Interval history: Seen this am, waiting to go to Dialysis No complaints, Denies Cp, no SOB. Results - Labs Result diagrams: 06/03/18 07:02 06/03/18 07:02 Abnormal lab results 06/02/18 06/02/18 06/03/18 Range/Units 22:55 22:55 07:02 RBC 2.91 L 3.17 L (4.50-5.90) mil/mm3 Hgb 8.9 L 9.5 L (13.0-17.0) gm/dL Hct 26.6 L 28.7 L (39.0-51.0) % Neut % (Auto) 71.2 H (16.0-70.0) % [place] % (Auto) 10.7 H 12.5 H (0.0-8.0) % Eos % (Auto) 4.3 H (0.0-4.0) % Lymph # (Auto) 0.8 L 0.6 L (1.0-4.8) th/mm3 Chloride 108 H (98-107) meq/L Anion Gap 4 L (5-15) meq/L BUN 33 H (7-18) mg/dL Creatinine 5.33 H (0.60-1.30) mg/dL Estimated GFR 13 L (>89) mL/min Calcium 7.9 L D (8.5-10.1) mg/dL Albumin (3.4-5.0) g/dL 06/03/18 Range/Units 07:02 RBC (4.50-5.90) mil/mm3 Hgb (13.0-17.0) gm/dL Hct (39.0-51.0) % Neut % (Auto) (16.0-70.0) % [place] % (Auto) (0.0-8.0) % Eos % (Auto) (0.0-4.0) % Lymph # (Auto) (1.0-4.8) th/mm3 Chloride (98-107) meq/L Anion Gap (5-15) meq/L BUN 36 H (7-18) mg/dL Creatinine 6.33 H (0.60-1.30) mg/dL Estimated GFR 10 L (>89) mL/min Calcium 8.2 L (8.5-10.1) mg/dL Albumin 2.2 L (3.4-5.0) g/dL Short CBC 06/02/18 06/03/18 Range/Units 22:55 07:02 WBC 5.9 D 4.6 (4.0-11.0) th/mm3 Hgb 8.9 L 9.5 L (13.0-17.0) gm/dL Hct 26.6 L 28.7 L (39.0-51.0) % Plt Count 237 260 (150-450) th/mm3 BMP 06/02/18 06/03/18 22:55 07:02 Sodium 144 145 Potassium 4.7 5.0 Chloride 108 H 106 Carbon Dioxide 31.8 31.9 BUN 33 H 36 H Creatinine 5.33 H 6.33 H Calcium 7.9 L D 8.2 L Liver Function 06/03/18 Range/Units 07:02 Albumin 2.2 L (3.4-5.0) g/dL Physical Exam Vital signs: Vital Signs 06/02/18 19:27 06/02/18 20:00 06/02/18 21:59 Temperature 98.0 F Pulse Rate 100 H 102 H Respiratory Rate 18 18 20 Blood Pressure 130/70 Pulse Oximetry 96 98 06/02/18 22:09 06/02/18 23:55 06/03/18 00:00 Temperature 98.0 F Pulse Rate 82 Respiratory Rate 20 18 16 Blood Pressure 128/69 Pulse Oximetry 95 06/03/18 04:00 06/03/18 08:00 06/03/18 12:00 Temperature 98.1 F 99 F 98.8 F Pulse Rate 79 86 96 H Respiratory Rate 14 20 20 Blood Pressure 121/67 152/73 H 110/59 L Pulse Oximetry 96 92 L 93 L 06/03/18 16:00 Temperature Pulse Rate 91 H Respiratory Rate 18 Blood Pressure Pulse Oximetry Intake & Output 06/03/18 06/03/18 06/04/18 06:59 18:59 06:59 Intake Total 360 / 360 Output Total 900 / 900 Balance -540 / -540 Weight 56.6 kg Intake: Oral 360 / 360 Output: Urine 400 / 400 Hemodialysis Amount 500 / 500 Other: Post Void Residual 200 # Voids 1 Date of Last Bowel Movement 06/02/18 06/02/18 - Constitutional no acute distress, thin - Routine HEENT Exam Eye: Present: PERRL - Routine Neck Exam Present: supple - Routine Respiratory Exam Present: CTA bilaterally - Routine Cardiovascular Exam Present: S1, S2 - Routine Abdominal Exam Present: soft, normoactive bowel sounds - Routine Skin Exam Present: intact - Routine Neurological Exam Present: alert, oriented X3 - Detailed Neurological Exam: Coma Scale Eye Opening: Spontaneous Verbal Response: Oriented - Routine Psychiatric Exam Present: cooperative - Urinary Catheter Management Indwelling Urethral Catheter Cath placed during this visit: yes Reason for continuing: Acute urinary retention Insertion date: 05/22/18 Insertion time: 21:00 Assessment and Plan - Assessment (1) Acute exacerbation of COPD with asthma Code(s): J44.1 - Chronic obstructive pulmonary disease with (acute) exacerbation ; J45.901 - Unspecified asthma with (acute) exacerbation Status: Acute (2) Acute kidney failure Code(s): N17.9 - Acute kidney failure, unspecified Status: Acute (3) Hypertension Code(s): I10 - Essential (primary) hypertension Status: Acute - Assessment and Plan potassium low will supplement orally 05/26 ck lab am add desyrel at hs for sleep 05/27 image urinary tract for obstruction 05/29 given 2 units prbc pt has hgb 8.5 now will follow closely 05/30 breathing better urology has seen him and recomends fu as op without intervention 05/31 feeling well lab stable will asses cxr hopefully will be accepted to [facility] 06/01 await vasc surg eval for shunt has headache will add fiorcet hold dc [facility] 06/02 pt had first dialysis late today if remains stable tonight will transfer to rehab in am 06/03/18- No complaints, seen this am. He is scheduled for 2nd Dialysis treatment today. Likely DC to [facility] in am AV fistula to be scheduled as outpatient. (2) Acute kidney failure Qualifiers: Acute renal failure type: unspecified Qualified Code(s): N17.9 - Acute kidney failure, unspecified
[2018-06-03] MEDS: traZODone 100 MG Tablet PO SCH (20:04)
[2018-06-04] MEDS: Insulin NovoLOG Aspart Correctional Sugar Inj SQ SCH ×3 (00:58→15:11)
[2018-06-04] MEDS: Gabapentin 100 MG Capsule PO SCH (09:12)
[2018-06-04] MEDS: Senna/Docusate Sodium 8.6/50 MG Tablet PO SCH (09:12)
[2018-06-04] MEDS: Heparin - SQ 10,000 UNITS/ML Vial SQ SCH (09:22)
[2018-06-04] MEDS: Butalbital/APAP/Caff 50/325/40 MG Tablet PO PRN (13:27)
[2018-06-04] MEDS: Bisacodyl 10 MG Supp RECTAL SCH (15:10)
--- NOTE | 2018-06-04 16:44 | P.PNNP ---
Subjective Interval history: Pt states he is feeling well today. Mentions potential transfer to [facility] this evening. Physical Exam Vital signs: Vital Signs 06/03/18 20:00 06/03/18 20:20 06/03/18 23:40 Temperature 99 F Pulse Rate 95 H 89 Respiratory Rate 18 18 18 Blood Pressure 113/62 Pulse Oximetry 95 06/04/18 00:00 06/04/18 03:39 06/04/18 04:00 Temperature 98.7 F 98.2 F Pulse Rate 88 67 Respiratory Rate 18 20 18 Blood Pressure 110/59 L 104/56 L Pulse Oximetry 96 100 06/04/18 08:00 06/04/18 09:15 06/04/18 09:49 Temperature 99.4 F Pulse Rate 82 91 H Respiratory Rate 18 18 18 Blood Pressure 115/57 L Pulse Oximetry 98 06/04/18 09:50 06/04/18 12:00 Temperature 98.6 F Pulse Rate 95 H Respiratory Rate 18 Blood Pressure 117/57 L Pulse Oximetry 98 95 Intake & Output 06/03/18 06/04/18 06/04/18 18:59 06:59 18:59 Intake Total 2840 / 2840 Output Total 1800 / 1800 350 / 350 Balance 1040 / 1040 -350 / -350 Weight 55.7 kg Intake: Oral 720 / 720 Oral Supplement 120 / 120 Trauma Intake Amount 2000 / 2000 Output: Urine 800 / 800 Stool 0 / 0 Hemodialysis Amount 1000 / 1000 Urine Amount (Catheter) 350 / 350 Indwelling Urethral Catheter 350 / 350 Other: Post Void Residual 200 # Voids 1 Date of Last Bowel Movement 06/02/18 06/02/18 06/02/18 # Bowel Movements 1 - Constitutional no acute distress - Routine HEENT Exam Head: Present: normocephalic - Routine Neck Exam Present: supple - Routine Respiratory Exam Present: decreased breath sounds, CTA bilaterally - Routine Cardiovascular Exam Present: RRR, S1, S2 - Routine Abdominal Exam Present: soft - Routine Extremities Exam Absent: edema - Routine Neurological Exam Present: alert, oriented X3 - Routine Psychiatric Exam Present: normal affect - Urinary Catheter Management Indwelling Urethral Catheter Cath placed during this visit: yes Urethral indwelling: No Reason for continuing: Chronic Urinary Retention Insertion date: 05/22/18 Insertion time: 21:00 Assessment and Plan - Assessment (1) Acute kidney failure Code(s): N17.9 - Acute kidney failure, unspecified Status: Acute Qualifiers: Qualified Code(s): N17.9 - Acute kidney failure, unspecified Plan: Will repeat labs in the AM. Next HD likely 06/05 with tentative TTS scheduling thereafter. Advised the patient again that he likely has ESRD and will require ongoing hemodialysis. If remains dialysis dependent next week, will change VasCath to PermCath. OK to be discharged to [facility] if cleared by primary. Please contact us if there are plans to discharge him to another rehab so outpatient dialysis can be arranged. Medications should be adjusted for the patient's estimated GFR if clinically indicated. Avoid agents with significant potential for nephrotoxicity possible including NSAIDs for analgesia, iodine contrast agents. Gadolinium is contraindicated if the GFR is below 30. (2) Obstructive uropathy Code(s): N13.9 - Obstructive and reflux uropathy, unspecified Status: Chronic Plan: Urology note reviewed Believed to be chronic (3) Vitamin D deficiency Code(s): E55.9 - Vitamin D deficiency, unspecified Status: Acute Plan: Continue vitamin D supplementation (4) Hypertension Code(s): I10 - Essential (primary) hypertension Status: Acute - Plan Improved
--- NOTE | 2018-06-04 17:49 | P.DS ---
Date of admission: 05/22/18 22:09 Primary care physician: Nishant Johnson DO Attending physician on discharge: Nishant Johnson Anticipated date of discharge: 06/04/18 Brief History from admission: 82yM presented to ER for shortness of breath and fatigue. very poor historian and difficult to obtain full medical history. no family at bedside to assist. remainder of history from medical record. patient does tell me that he knows he has "minor kidney problems" and has seen someone recently for this. in the ER his Cr is 11, K 6.9. CT abd/pelvis with bilateral hydronephrosis which does not appear to be obstructive in nature. radiology has compared this to a recent prior CT scan a few weeks ago from the outpatient radiology center and says it is unchanged and stable, but I do not have any records of any prior medical visit in our system to address why the CT scan was performed, or what if any intervention took place. Patient has a history of COPD on 3L o2 at home. he endorses SOB, but this appears to be stable and not new or acute. denies new cough, sputum production, fever, chills. patient endorses frequency and urgency of urination but denies urinary retention or prostate problems to me. remainder of ROS is essentially unobtainable due to his poor recollection of his medical history. DS: Diagnosis - Discharge Diagnosis (1) Acute exacerbation of COPD with asthma Status: Acute (2) Acute kidney failure Status: Acute (3) Hypertension Status: Chronic DS: Summary Hospital Course: Dialysis first Treatment 06/02, 06/03 - Time Spent with Patient Total time spent providing and/or coordinating discharge services: 30 minutes Greater than 30 minutes - Quality: AMI Clinical Trial Participant: No Contraindication-Aspirin: Not indicated Contraindication-PCI Procedure: Not indicated Contraindication-No Fibrinolytic Therapy: Drug treatment not indicated - Quality: Stroke Reason for No Antithrombin at DC: Treatment not indicated Reason for No Anticoagulant at DC: Treatment not indicated Pt Provided Written Stroke Discharge Instructions: Patient given written information Rehab Services Assessed: Physical rehabilitation therapy assessment - Quality: VTE Deep Vein Thrombosis/Pulmonary Embolism Present on Admission: No Exam Vital signs: Vital Signs 06/03/18 20:00 06/03/18 20:20 06/03/18 23:40 Temperature 99 F Pulse Rate 95 H 89 Respiratory Rate 18 18 Blood Pressure 113/62 Pulse Oximetry 95 06/04/18 00:00 06/04/18 03:39 06/04/18 04:00 Temperature 98.7 F 98.2 F Pulse Rate 88 67 Respiratory Rate 18 20 18 Blood Pressure 110/59 L 104/56 L Pulse Oximetry 96 100 06/04/18 08:00 06/04/18 09:15 06/04/18 09:49 Temperature 99.4 F Pulse Rate 82 91 H Respiratory Rate 18 18 18 Blood Pressure 115/57 L Pulse Oximetry 98 06/04/18 09:50 06/04/18 12:00 Temperature 98.6 F Pulse Rate 95 H Respiratory Rate 18 Blood Pressure 117/57 L Pulse Oximetry 98 95 Intake & Output 06/03/18 06/04/18 06/04/18 18:59 06:59 18:59 Intake Total 2840 / 2840 Output Total 1800 / 1800 350 / 350 Balance 1040 / 1040 -350 / -350 Weight 55.7 kg Intake: Oral 720 / 720 Oral Supplement 120 / 120 Trauma Intake Amount 2000 / 2000 Output: Urine 800 / 800 Stool 0 / 0 Hemodialysis Amount 1000 / 1000 Urine Amount (Catheter) 350 / 350 Indwelling Urethral Catheter 350 / 350 Other: Post Void Residual 200 # Voids 1 Date of Last Bowel Movement 06/02/18 06/02/18 06/02/18 # Bowel Movements 1 - Constitutional no acute distress - Routine Neck Exam Present: supple - Routine Respiratory Exam Present: decreased breath sounds Comments: Diminished at base, Scattered rhonchi - Routine Cardiovascular Exam Present: S1, S2 - Routine Abdominal Exam Present: soft, normoactive bowel sounds - Routine Skin Exam Present: intact - Routine Neurological Exam Present: alert, oriented X3 forgetful Results Procedures completed during hospitalization: RIJ vascath placed. 06/02/18 Labs on day of discharge: Labs from last 24 hours 06/04/18 06/04/18 06/04/18 14:02 09:10 05:00 POC Glucose 153 H 101 82 Random Glucose 06/03/18 06/03/18 06/03/18 19:59 18:31 17:54 POC Glucose 102 69 Random Glucose 124 H - Impressions ITS Impressions Chest CT 05/22/18 21:04 CONCLUSION: 1. There is volume loss and mild airspace opacity in the right upper lobe, right middle lobe, and left upper lobe. Material is also present within the bronchus intermedius suggesting aspiration as a potential cause. These findings are new since the prior study. 2. New small right pleural effusion. 3. The left upper lobe 8 mm spiculated nodule remains present and will ultimately require further evaluation as previously recommended. 4. Severe atherosclerotic disease and coronary artery calcification. Renal Scan w/Medication NM 05/23/18 00:00 CONCLUSION: 1. Slow parenchymal washout without fixed obstruction. Ureters appear prominent suggesting mild hydronephrosis. This could cause the sluggish excretion Abdomen/Pelvis CT 05/28/18 00:00 CONCLUSION: 1. Bilateral lower lobe consolidation and left pleural effusion. 2. Gallstone, unchanged. 3. Enlarged prostate, stable. Venous Doppler Study 05/28/18 19:31 CONCLUSION: 1. No deep venous thrombosis. Occlusive and nonocclusive thrombus in the left cephalic vein. Videofluoroscopic Swallow 05/30/18 00:00 CONCLUSION: For a full detailed report, see report by the speech pathologist. Chest X-Ray 05/31/18 00:00 CONCLUSION: Right midlung airspace disease. Small bilateral pleural effusions. Catheter Placement 06/02/18 12:13 CONCLUSION: 1. Uncomplicated line placement as above. Discharge Plan - Discharge Disposition Patient Disposition: 62 Rehab Inpatient - Discharge Condition Condition: Good - Discharge Order Discharge Orders: Discharge Order (Routine); Ordered 06/04/18 Ordered By: Jocy Anguiano - Discharge Details Anticipated Discharge Date: 06/04/18 - Physicians Team Primary Care Provider: Nishant Johnson Attending Provider: Nishant Johnson Other Providers: Cee Granados MD ; Nishant Johnson DO ; Olivier Colon MD ; Joana Beavers MD
== END 2018-06-04 17:22 ==
LOC: NEPE 19:00 → NEDA 22:09 → NEDH 05-23 03:56 → N03 05-23 06:30 → HIMC 05-24 05:35 → N05 05-27 19:29
PROVIDERS: ADMIT Family Medicine; ATTEND Family Medicine

== ENCOUNTER 2018-07-21 11:24 | Inpatient (IN) ==
--- NOTE | 2018-07-21 12:00 | ED ---
HPI General Chief complaint: Fall Stated complaint: Fall Time Seen by Provider: 07/21/18 11:28 Source: patient and EMS Mode of arrival: EMS Limitations: no limitations History of Present Illness HPI narrative: Patient is an 82-year-old male presenting to emerge department for evaluation of generalized weakness, falls. Patient was brought to the emergency department by EMS who states that he was hypotensive on their initial evaluation with a systolic blood pressure in the 80s. Patient states that he has been weak for "sometime". Patient reported to me that he fell twice yesterday. He states that he went to get food in the kitchen when he became weak and fell down hitting his head. He denies any loss of consciousness. He states that he crawled back to his room and got back into bed. He reports that he also felt short of breath during this time. Patient is on 3 L of oxygen normally, he states that he was not wearing it when he fell because he was feeling good. Apparently patient lives with his nephew now but [facility] Patient is on hemodialysis, his schedule is Saturday, , Saturday. Patient reports neck pain, 3 out of 10, sore. He also states that he has intermittent headaches but does not have one now. Onset of symptoms is unknown but appears chronic. Symptoms are likely exacerbated secondary to noncompliance with oxygen and poor oral intake. Onset (ago): unknown Location: neck Radiation: non-radiation Severity: mild Severity scale (1-10): 3 Quality: aching Pain Consistency: constant Associated symptoms: headaches, malaise, shortness of breath and weakness Treatments prior to arrival: other (Patient received 500 cc of normal saline with EVAC) Related Data Previous Rx's Medication Instructions Recorded doxepin 25 mg PO DAILY #30 cap 06/16/18 tamsulosin 0.4 mg PO DAILY #30 tab 06/16/18 Allergies Allergy/AdvReac Type Severity Reaction Status Date / Time No Known Allergies Allergy Unverified 07/21/18 11:29 Review of Systems ROS: all other systems reviewed are negative [facility] Medical History Medical History Acute hemodialysis patient (Acute) Anemia (Acute) BPH loc w urin obs/LUTS (Acute) COPD (chronic obstructive pulmonary disease) (Acute) Dysphagia (Acute) End stage renal disease (Acute) Hypertension (Acute) Impaired mobility and ADLs (Acute) Oxygen dependent (Acute) Vascular dialysis catheter in place (Acute) Surgical History Surgical History H/O hernia repair (Acute) Social History Social History Substance History: No History of Abuse Second Hand Smoke Exposure: No Smoking Status: Former smoker Tobacco Type: Cigarettes How Often Do You Have a Drink Containing Alcohol: Never [facility] within the Last 8 Weeks: No Recent Out of Country Travel within the Last 8 Weeks: No Immunization History Tetanus Immunization: <5 Years Hx Influenza Vaccine This Season: Yes Exam Narrative Exam Narrative: GENERAL: Thin, well-developed, alert -[place] male. Presenting in no acute distress. SKIN: Focused skin assessment warm/dry. Right chest PermCath. HEAD: Atraumatic. Normocephalic. EYES: Pupils equal and round. No scleral icterus. No injection or drainage. ENT: No nasal bleeding or discharge. Mucous membranes pink and moist. NECK: Trachea midline. No JVD. CARDIOVASCULAR: Regular rate and rhythm. No murmur appreciated. RESPIRATORY: No accessory muscle use. Clear to auscultation. Breath sounds equal bilaterally, diminished in bases. GASTROINTESTINAL: Abdomen soft, non-tender, nondistended. Hepatic and splenic margins not palpable. MUSCULOSKELETAL: No obvious deformities. No clubbing. No cyanosis. No edema. NEUROLOGICAL: Awake and alert. No obvious cranial nerve deficits. Motor grossly within normal limits. Normal speech. PSYCHIATRIC: Appropriate mood and affect; insight and judgment normal. Course Initial Documented Vital Signs Temperature 97.8 F 07/21/18 11:29 Pulse Rate 86 07/21/18 11:29 Respiratory Rate 16 07/21/18 11:29 Blood Pressure 141/62 H 07/21/18 11:29 Pulse Oximetry 94 L 07/21/18 11:29 Last Documented Vital Signs Temperature 97.8 F 07/21/18 11:29 Pulse Rate 79 07/21/18 11:54 Respiratory Rate 17 07/21/18 11:54 Blood Pressure 141/62 H 07/21/18 11:29 Pulse Oximetry 99 07/21/18 11:40 Medical Decision Making MDM Narrative Medical decision making narrative: Patient is an 82-year-old male presenting for evaluation of generalized weakness and falls. Vital signs are stable on arrival. Labs and imaging ordered and pending. IV access established, patient was placed on telemetry monitoring continuous pulse oximetry. CBC with a stable anemia Chem with elevated BUN/cr this is expected, pt is due for HD tomorrow. CXR shows interval improvement since prior. BP and vitals have been stable since presentation in the ER. Pt will be admitted under observation. Family is stating he will likely need at minimum DETENTION placement. Spoke with Jocy PLASCENCIA. Admit orders placed. Medical Screen Exam Complete: Yes Emergency Medical Condition: Yes Differential Diagnosis Differential Diagnosis: Metabolic abnormality versus UTI versus hemorrhage versus impaired ADLs versus other Medical Records Medical records reviewed: Yes I reviewed the patient's medical records. Lab Data Lab results reviewed: Yes I reviewed the patient's lab results. Result diagrams: 07/21/18 11:40 07/21/18 11:40 Lab Results 07/21/18 07/21/18 07/21/18 Range/Units 11:40 11:40 11:40 WBC 7.6 (4.0-11.0) th/mm3 RBC 2.56 L (4.50-5.90) mil/mm3 Hgb 8.1 L (13.0-17.0) gm/dL Hct 24.5 L (39.0-51.0) % MCV 95.7 (80.0-100.0) fL MCH 31.7 (27.0-34.0) pg MCHC 33.1 (32.0-36.0) % RDW 19.5 H (11.6-17.2) % Plt Count 223 (150-450) th/mm3 MPV 6.8 L (7.0-11.0) fL Neut % (Auto) 68.7 (16.0-70.0) % Lymph % (Auto) 12.4 (9.0-44.0) % [place] % (Auto) 12.2 H (0.0-8.0) % Eos % (Auto) 5.7 H (0.0-4.0) % Baso % (Auto) 1.0 (0.0-2.0) % Neut # (Auto) 5.2 (1.8-7.7) th/mm3 Lymph # (Auto) 0.9 L (1.0-4.8) th/mm3 [place] # (Auto) 0.9 (0.0-0.9) th/mm3 Eos # (Auto) 0.4 (0.0-0.4) th/mm3 Baso # (Auto) 0.1 (0.0-0.2) th/mm3 WBC Differential . Differential Comment Auto diff final PT 10.2 (9.8-11.6) sec INR 1.0 Ratio APTT 21.7 L (24.3-30.1) sec Sodium 143 (136-145) meq/L Potassium 5.1 (3.5-5.1) meq/L Chloride 107 (98-107) meq/L Carbon Dioxide 27.8 (21.0-32.0) meq/L Anion Gap 8 (5-15) meq/L BUN 27 H (7-18) mg/dL Creatinine 7.57 H (0.60-1.30) mg/dL Estimated GFR 8 L (>89) mL/min Random Glucose 96 (74-106) mg/dL Calcium 8.1 L (8.5-10.1) mg/dL Magnesium 3.9 H (1.5-2.5) mg/dL Total Bilirubin 0.4 (0.2-1.0) mg/dL AST 20 (15-37) U/L ALT 19 (12-78) U/L Alkaline Phosphatase 49 (45-117) U/L Troponin I (0.02-0.05) ng/mL Total Protein 6.4 (6.4-8.2) g/dL Albumin 2.7 L (3.4-5.0) g/dL 07/21/18 Range/Units 11:40 WBC (4.0-11.0) th/mm3 RBC (4.50-5.90) mil/mm3 Hgb (13.0-17.0) gm/dL Hct (39.0-51.0) % MCV (80.0-100.0) fL MCH (27.0-34.0) pg MCHC (32.0-36.0) % RDW (11.6-17.2) % Plt Count (150-450) th/mm3 MPV (7.0-11.0) fL Neut % (Auto) (16.0-70.0) % Lymph % (Auto) (9.0-44.0) % [place] % (Auto) (0.0-8.0) % Eos % (Auto) (0.0-4.0) % Baso % (Auto) (0.0-2.0) % Neut # (Auto) (1.8-7.7) th/mm3 Lymph # (Auto) (1.0-4.8) th/mm3 [place] # (Auto) (0.0-0.9) th/mm3 Eos # (Auto) (0.0-0.4) th/mm3 Baso # (Auto) (0.0-0.2) th/mm3 WBC Differential Differential Comment PT (9.8-11.6) sec INR Ratio APTT (24.3-30.1) sec Sodium (136-145) meq/L Potassium (3.5-5.1) meq/L Chloride (98-107) meq/L Carbon Dioxide (21.0-32.0) meq/L Anion Gap (5-15) meq/L BUN (7-18) mg/dL Creatinine (0.60-1.30) mg/dL Estimated GFR (>89) mL/min Random Glucose (74-106) mg/dL Calcium (8.5-10.1) mg/dL Magnesium (1.5-2.5) mg/dL Total Bilirubin (0.2-1.0) mg/dL AST (15-37) U/L ALT (12-78) U/L Alkaline Phosphatase (45-117) U/L Troponin I Less than 0.02 L (0.02-0.05) ng/mL Total Protein (6.4-8.2) g/dL Albumin (3.4-5.0) g/dL Imaging Data Radiologist's impression: Cervical Spine CT 07/21/18 11:36 CONCLUSION: 1. No evidence of acute fracture, traumatic listhesis or significant soft tissue abnormality. 2. Severe degenerative disc disease with collapse of the disc and partial ankylosis at C3-4, C4-5 and C5-6. 3. Severe degenerative disc disease at C6-7 with foraminal encroachment. 4. Severe atlantoaxial degenerative disease 5. Reversal of normal cervical lordosis and mild degenerative anterolisthesis at C3-4. Chest X-Ray 07/21/18 11:36 CONCLUSION: Minimal improvement in consolidative changes right base. Head CT 07/21/18 11:36 CONCLUSION: 1. Negative for acute process . Discharge Plan Discharge Disposition Patient Disposition: 30 Still Patient Discharge Condition Condition: Stable Discharge Details Diagnosis: Syncope, near, Impaired mobility and ADLs, End stage renal disease, Weakness, Anemia in chronic kidney disease Physicians Team ED Provider: Eliza Eid ED Midlevel Provider: Ciera Calderon Primary Care Provider: UNKNOWN, Rxs /Orders / Referrals /Forms Prescriptions: No Action doxepin 25 mg Capsule 25 mg PO DAILY Qty: 30 RF: 0 tamsulosin 0.4 mg Capsule,Extended Release 24hr 0.4 mg PO DAILY Qty: 30 RF: 0 Status ED Status: Admitted Observation Patient
[2018-07-21 12:07] LABS: Baso # (Auto) 0.1 th/mm3 (0.0-0.2); Eos # (Auto) 0.4 th/mm3 (0.0-0.4); Eos % (Auto) 5.7 % (0.0-4.0); Hematocrit 24.5 % (39.0-51.0); Hemoglobin 8.1 gm/dL (13.0-17.0); Lymph # (Auto) 0.9 th/mm3 (1.0-4.8); Lymph % (Auto) 12.4 % (9.0-44.0); Mean Corpuscular HGB Conc 33.1 % (32.0-36.0); Mean Corpuscular Hemoglobin 31.7 pg (27.0-34.0); Mean Corpuscular Volume 95.7 fL (80.0-100.0); Mean Platelet Volume 6.8 fL (7.0-11.0); Mono # (Auto) 0.9 th/mm3 (0.0-0.9); Mono % (Auto) 12.2 % (0.0-8.0); Neut # (Auto) 5.2 th/mm3 (1.8-7.7); Neut % (Auto) 68.7 % (16.0-70.0); Platelet Count 223 th/mm3 (150-450); Red Blood Count 2.56 mil/mm3 (4.50-5.90); Red Cell Distribution Width 19.5 % (11.6-17.2); White Blood Count 7.6 th/mm3 (4.0-11.0)
[2018-07-21 12:15] LABS: Activated Partial Thrombo Time 21.7 sec (24.3-30.1); Prothrombin Time 10.2 sec (9.8-11.6)
--- NOTE | 2018-07-21 12:21 | XR ---
EXAM DATE: 07/21/2018 12:11 PM EDT AGE/SEX: 82 years / Male INDICATIONS: Patient passed out , weakness. CLINICAL DATA: This is the patient's initial encounter. Patient reports that signs and symptoms have been present for 1 day and indicates a pain score of 4/10. MEDICAL/SURGICAL HISTORY: . Chronic obstructive pulmonary disease. Hypertension. Anemia. Acute hemodialysis, acute renal failure, BPH, Dysphagia, Impaired mobility and ADLs, Oxygen dependent . Her rich repair . COMPARISON: [facility], CHEST 1V SINGLE AP, 06/08/2018. . FINDINGS: Dialysis catheter in good position. Patchy consolidative changes persist on the right smaller in the interval. Left lung is clear. The heart and pulmonary vascularity are normal. CONCLUSION: Minimal improvement in consolidative changes right base. Electronically signed by: Michael Loredo MD 07/21/2018 12:19 PM EDT
--- NOTE | 2018-07-21 12:27 | CT ---
EXAM DATE: 07/21/2018 12:19 PM EDT AGE/SEX: 82 years / Male INDICATIONS: Generalize weakness fall shortness of breath CLINICAL DATA: This is the patient's initial encounter. Patient reports that signs and symptoms have been present for 1 day and indicates a pain score of 3/10. MEDICAL/SURGICAL HISTORY: Anemia. Chronic obstructive pulmonary disease. Renal disease, end stage . Hypertension None. RADIATION DOSE: 56.35 CTDI (mGy) COMPARISON: . TECHNIQUE: CT of the head without contrast. Using automated exposure control and adjustment of the mA and/or kV according to patient size, radiation dose was kept as low as reasonably achievable to ob tain optimal diagnostic quality images. DICOM format image data is available electronically for revi ew and comparison. FINDINGS: Cerebrum: The ventricles are normal for age. No evidence of midline shift, mass lesion, hemorrhage or acute infarction. No extraaxial fluid collections are seen. Posterior Fossa: The cerebellum and brainstem are intact. The 4th ventricle is midline. The cerebe llopontine angle is unremarkable. Extracranial: The visualized portion of the orbits is intact. Skull: The calvaria is intact. No evidence of skull fracture. CONCLUSION: 1. Negative for acute process . Electronically signed by: Michael Loredo MD 07/21/2018 12:26 PM EDT
[2018-07-21 12:31] LABS: Alanine Aminotransferase 19 U/L (12-78); Albumin 2.7 g/dL (3.4-5.0); Anion Gap 8 meq/L (5-15); Aspartate Aminotransferase 20 U/L (15-37); Blood Urea Nitrogen 27 mg/dL (7-18); Calcium 8.1 mg/dL (8.5-10.1); Carbon Dioxide 27.8 meq/L (21.0-32.0); Chloride 107 meq/L (98-107); Glomerular Filtration Rate 8 mL/min (>89); Glucose,Random 96 mg/dL (74-106); Magnesium 3.9 mg/dL (1.5-2.5); Potassium 5.1 meq/L (3.5-5.1); Sodium 143 meq/L (136-145)
[2018-07-21 12:34] LABS: Alkaline Phosphatase 49 U/L (45-117); Total Protein 6.4 g/dL (6.4-8.2)
--- NOTE | 2018-07-21 12:57 | CT ---
EXAM DATE: 07/21/2018 12:35 PM EDT AGE/SEX: 82 years / Male INDICATIONS: Generalize weakness fall shortness of breath CLINICAL DATA: This is the patient's initial encounter. Patient reports that signs and symptoms have been present for 1 day and indicates a pain score of 3/10. MEDICAL/SURGICAL HISTORY: Anemia. Chronic obstructive pulmonary disease. Renal disease, end s tage. Hypertension None. RADIATION DOSE: 17.80 CTDI (mGy) [place] [facility] [place]AST, 09/19/2013. . TECHNIQUE: Contiguous axial images were obtained using helical multirow detector technique. The vol umetric data was post-processed with multiplanar reconstruction in oblique axial, sagittal, and coron al planes. Using automated exposure control and adjustment of the mA and/or kV according to patient s ize, radiation dose was kept as low as reasonably achievable to obtain optimal diagnostic quality lluvia ges. DICOM format image data is available electronically for review and comparison. FINDINGS: ALIGNMENT: Reversal of normal lordosis is present throughout the cervical spine. There is slight ant erolisthesis of C2 on C3.. FACET AND OSSEOUS STRUCTURES: Severe degenerative disease with at least partial ankylosis is noted f rom C3 to C6. There is complete obliteration of the intervertebral disc with bridging bone and spondy lotic spurring. Severe arthropathy is evident of the atlantoaxial joint there is marked joint space narrowing with paula bchondral sclerosis and marginal spurring. Mild subluxation is noted. Significant facet arthropathy is identified at C2-3 accounting for the mild listhesis. Vertebral bodies and posterior elements are otherwise intact. There is no evidence of fracture, traum atic listhesis, facet subluxation or significant soft tissue swelling. INTERVERTEBRAL DISC SPACES: Advanced degenerative disc disease is noted. C2-3: Moderate to severe degenerative disc disease with disc space narrowing and marginal spondylosis . There is marginal disc osteophyte complex which is eccentric to the left and causing left foraminal encroachment. There is no significant spinal stenosis. C3-4: Complete collapse of the disc with partial ankylosis. There is broad-based disc osteophyte comp gloria with anterior epidural effacement and mild bilateral foraminal encroachment. C4-5: Severe degenerative disc disease with collapse of the disc and partial ankylosis. There is mild marginal spurring with mild foraminal encroachment but no significant spinal stenosis. C5-6: Severe degenerative disc disease with collapse of the disc and partial ankylosis. There is karly inal disc osteophyte complex with anterior epidural effacement and mild bilateral foraminal encroachm ent. C6-7: Severe degenerative disc disease with collapse of the intervertebral disc and partial ankylosis . There is broad-based marginal disc osteophyte complex with bilateral foraminal encroachment which i s moderate to severe on the left and mild on the right. C7-T1: Unremarkable NEUROLOGIC STRUCTURES: No evidence of significant central spinal stenosis. CONCLUSION: 1. No evidence of acute fracture, traumatic listhesis or significant soft tissue abnormality. 2. Severe degenerative disc disease with collapse of the disc and partial ankylosis at C3-4, C4-5 an d C5-6. 3. Severe degenerative disc disease at C6-7 with foraminal encroachment. 4. Severe atlantoaxial degenerative disease 5. Reversal of normal cervical lordosis and mild degenerative anterolisthesis at C3-4. Electronically signed by: Gabe Andujar MD 07/21/2018 12:56 PM EDT
[2018-07-21] MEDS ORDERED: Bisacodyl 10 MG Supp RECTAL PRN (14:27)
--- NOTE | 2018-07-21 16:47 | P.HPFP ---
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 - Medical History Medical History: Medical History (Last Reviewed 07/21/18 @ 11:58 by TEMO Elizalde) Acute hemodialysis patient Anemia BPH loc w urin obs/LUTS COPD (chronic obstructive pulmonary disease) Dysphagia End stage renal disease Hypertension Impaired mobility and ADLs Oxygen dependent Vascular dialysis catheter in place - Surgical History Surgical History: Surgical History (Last Reviewed 07/21/18 @ 11:58 by TEMO Elizalde) H/O hernia repair - Tobacco History Second Hand Smoke Exposure: No Tobacco Use In Past 30 Days: No Smoking Status: Former smoker Tobacco Type: Cigarettes - Alcohol History How Often Do You Have a Drink Containing Alcohol: Never - Substance Use History Substance History: No History of Abuse - Travel History Recent Travel in the [place] Within the Last 8 Weeks: No Recent Travel Out of the Country Within the Last 8 Weeks: No - Immunization History Tetanus Immunization: <5 Years Hx Influenza Vaccine This Season: Yes Medications and Allergies Active Medications: Active Medications Al Hydroxide/Mg Hydroxide (Milk Of Magnesia Liq) 30 ml PO Q12H PRN PRN Reason: Mild Constipation Bisacodyl (Dulcolax Supp) 10 mg RECTAL DAILY PRN PRN Reason: SEVERE CONSITIPATION Doxepin HCl (Sinequan) 25 mg PO DAILY [facility] Lactulose (Lactulose Liq) 30 ml PO DAILY PRN PRN Reason: SEVERE CONSITIPATION Senna/Docusate Sodium (Denise-Colace) 1 tab PO BID [facility] Sennosides (Senokot) 17.2 mg PO Q12H PRN PRN Reason: Moderate Constipation Tamsulosin HCl (Flomax) 0.4 mg PO DAILY [facility] Allergies Allergy/AdvReac Type Severity Reaction Status Date / Time No Known Allergies Allergy Unverified 07/21/18 11:29 Exam Vital signs: Vital Signs 07/21/18 11:29 07/21/18 11:40 07/21/18 11:54 Temperature 97.8 F Pulse Rate 86 79 Respiratory Rate 16 17 Blood Pressure 141/62 H Pulse Oximetry 94 L 99 Intake & Output 07/20/18 07/21/18 07/21/18 18:59 06:59 18:59 Weight 55.792 kg - Constitutional no acute distress - Routine HEENT Exam Head: Present: normocephalic Eye: Present: EOMI, PERRL ENT: Present: mucous membranes moist - Routine Neck Exam Present: full ROM - Routine Respiratory Exam Present: CTA bilaterally - Routine Cardiovascular Exam Present: RRR - Routine Abdominal Exam Present: soft, normoactive bowel sounds - Routine Neurological Exam Present: alert, oriented X3 Results - Labs Result diagrams: 07/21/18 11:40 07/21/18 11:40 Abnormal lab results 07/21/18 07/21/18 07/21/18 Range/Units 11:40 11:40 11:40 RBC 2.56 L (4.50-5.90) mil/mm3 Hgb 8.1 L (13.0-17.0) gm/dL Hct 24.5 L (39.0-51.0) % RDW 19.5 H (11.6-17.2) % MPV 6.8 L (7.0-11.0) fL [place] % (Auto) 12.2 H (0.0-8.0) % Eos % (Auto) 5.7 H (0.0-4.0) % Lymph # (Auto) 0.9 L (1.0-4.8) th/mm3 APTT 21.7 L (24.3-30.1) sec BUN 27 H (7-18) mg/dL Creatinine 7.57 H (0.60-1.30) mg/dL Estimated GFR 8 L (>89) mL/min Calcium 8.1 L (8.5-10.1) mg/dL Magnesium 3.9 H (1.5-2.5) mg/dL Troponin I (0.02-0.05) ng/mL Albumin 2.7 L (3.4-5.0) g/dL 07/21/18 Range/Units 11:40 RBC (4.50-5.90) mil/mm3 Hgb (13.0-17.0) gm/dL Hct (39.0-51.0) % RDW (11.6-17.2) % MPV (7.0-11.0) fL [place] % (Auto) (0.0-8.0) % Eos % (Auto) (0.0-4.0) % Lymph # (Auto) (1.0-4.8) th/mm3 APTT (24.3-30.1) sec BUN (7-18) mg/dL Creatinine (0.60-1.30) mg/dL Estimated GFR (>89) mL/min Calcium (8.5-10.1) mg/dL Magnesium (1.5-2.5) mg/dL Troponin I Less than 0.02 L (0.02-0.05) ng/mL Albumin (3.4-5.0) g/dL Short CBC 07/21/18 Range/Units 11:40 WBC 7.6 (4.0-11.0) th/mm3 Hgb 8.1 L (13.0-17.0) gm/dL Hct 24.5 L (39.0-51.0) % Plt Count 223 (150-450) th/mm3 BMP 07/21/18 11:40 Sodium 143 Potassium 5.1 Chloride 107 Carbon Dioxide 27.8 BUN 27 H Creatinine 7.57 H Calcium 8.1 L Cardiac Enzymes 07/21/18 Range/Units 11:40 Troponin I Less than 0.02 L (0.02-0.05) ng/mL Liver Function 07/21/18 Range/Units 11:40 Total Bilirubin 0.4 (0.2-1.0) mg/dL AST 20 (15-37) U/L ALT 19 (12-78) U/L Alkaline Phosphatase 49 (45-117) U/L Albumin 2.7 L (3.4-5.0) g/dL - Imaging Impressions Cervical Spine CT 07/21/18 11:36 CONCLUSION: 1. No evidence of acute fracture, traumatic listhesis or significant soft tissue abnormality. 2. Severe degenerative disc disease with collapse of the disc and partial ankylosis at C3-4, C4-5 and C5-6. 3. Severe degenerative disc disease at C6-7 with foraminal encroachment. 4. Severe atlantoaxial degenerative disease 5. Reversal of normal cervical lordosis and mild degenerative anterolisthesis at C3-4. Chest X-Ray 07/21/18 11:36 CONCLUSION: Minimal improvement in consolidative changes right base. Head CT 07/21/18 11:36 CONCLUSION: 1. Negative for acute process . Caprini VTE Risk Assessment Caprini VTE Risk Assessment: No/Low Risk (score <= 1) (fall risk avoid anticoag for now) Caprini Risk Assessment Model: Point Value = 1 Point Value = 2 Point Value = 3 Point Value = 5 Age 41-60 Minor surgery BMI > 25 kg/m2 Swollen legs Varicose veins or History of unexplained or recurrent spontaneous Oral contraceptives or hormone replacement Sepsis (< 1 month) Serious lung disease, including pneumonia (< 1 month) Abnormal pulmonary function Acute myocardial infarction Congestive heart failure (< 1 month) History of inflammatory bowel disease Medical patient at bed rest Age 61-74 Arthroscopic surgery Major open surgery (> 45 min) Laparoscopic surgery (> 45 min) Malignancy Confined to bed (> 72 hours) Immobilizing plaster cast Central venous access Age >= 75 History of VTE Family history of VTE Factor V Leiden Prothrombin [id number] Lupus anticoagulant Anticardiolipin antibodies Elevated serum homocysteine Heparin-induced thrombocytopenia Other congenital or acquired thrombophilia Stroke (< 1 month) Elective arthroplasty Hip, pelvis, or leg fracture Acute spinal cord injury (< 1 month) Prophylaxis Regimen: Total Risk Factor Score Risk Level Prophylaxis Regimen 0-1 Low Early ambulation 2 Moderate Order ONE of the following: *Sequential Compression Device (SCD) *Heparin 5000 units SQ BID 3-4 Higher Order ONE of the following medications: *Heparin 5000 units SQ TID *Enoxaparin/Lovenox 40 mg SQ daily (WT < 150 kg, CrCl > 30 mL/min) *Enoxaparin/Lovenox 30 mg SQ daily (WT < 150 kg, CrCl > 10-29 mL/min) *Enoxaparin/Lovenox 30 mg SQ BID (WT < 150 kg, CrCl > 30 mL/min) AND/OR *Sequential Compression Device (SCD) 5 or more Highest Order ONE of the following medications: *Heparin 5000 units SQ TID (Preferred with Epidurals) *Enoxaparin/Lovenox 40 mg SQ daily (WT < 150 kg, CrCl > 30 mL/min) *Enoxaparin/Lovenox 30 mg SQ daily (WT < 150 kg, CrCl > 10-29 mL/min) *Enoxaparin/Lovenox 30 mg SQ BID (WT < 150 kg, CrCl > 30 mL/min) AND *Sequential Compression Device (SCD) Assessment and Plan - Assessment (1) Syncope and collapse Code(s): R55 - Syncope and collapse Status: Acute Plan: appears as though patient was taking both neurontin and lyrica at the same time will dc both - Assessment and Plan have pt eval ambulation ck lab am
[2018-07-21] MEDS ORDERED: Dextrose 50% in Water 50 ML Vial IV.PUSH PRN (20:22)
[2018-07-21 21:29] LABS: Alanine Aminotransferase 19 U/L (12-78); Albumin 2.9 g/dL (3.4-5.0); Alkaline Phosphatase 54 U/L (45-117); Anion Gap 8 meq/L (5-15); Aspartate Aminotransferase 20 U/L (15-37); Blood Urea Nitrogen 31 mg/dL (7-18); Calcium 8.5 mg/dL (8.5-10.1); Carbon Dioxide 28.5 meq/L (21.0-32.0); Chloride 105 meq/L (98-107); Glomerular Filtration Rate 7 mL/min (>89); Glucose,Random 141 mg/dL (74-106); Potassium 4.9 meq/L (3.5-5.1); Sodium 141 meq/L (136-145); Total Protein 6.6 g/dL (6.4-8.2)
[2018-07-21] MEDS: Acetaminophen/Codeine 300/30 MG Tablet PO PRN (21:57)
[2018-07-21] MEDS: Senna/Docusate Sodium 8.6/50 MG Tablet PO SCH (21:57)
[2018-07-21] MEDS: Insulin NovoLOG Aspart Correctional Sugar Inj SQ SCH (23:00)
[2018-07-22] MEDS: Acetaminophen/Codeine 300/30 MG Tablet PO PRN ×2 (02:43→07:45)
--- NOTE | 2018-07-22 07:52 | P.CONNEU ---
History of Present Illness Service: Neurology Reason for Consult: Syncope Primary Care Provider: UNKNOWN Family Provider: Nishant Johnson DO History of Present Illness: 82-year-old gentleman admitted for syncopal episode. History of dialysis treatment. Note of systolic blood pressure apparently in the 80s by EVAC. Was given fluids. In the ER blood pressure [address] brain scan no acute lesion. Is also apparently been taking Lyrica and gabapentin both of which been held at present. 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 - Medical History Medical History: Medical History (Last Reviewed 07/29/18 @ 08:20 by Renee Sykes) BPH loc w urin obs/LUTS (Acute) COPD (chronic obstructive pulmonary disease) (Acute) Hypertension (Acute) Degenerative disc disease ESRD (end stage renal disease) on dialysis GERD (gastroesophageal reflux disease) History of alcohol dependence History of squamous cell carcinoma Anemia - Surgical History Surgical History: Surgical History (Last Reviewed 07/29/18 @ 08:20 by Renee Sykes) H/O hernia repair - Family History Family History: Family History (Last Reviewed 07/24/18 @ 10:40 by Ceci Sanchez) Other Family history of cancer - Tobacco History Second Hand Smoke Exposure: No Tobacco Use In Past 30 Days: No Smoking Status: Former smoker Tobacco Type: Cigarettes - Alcohol History How Often Do You Have a Drink Containing Alcohol: Never - Substance Use History Substance History: No History of Abuse - Travel History Recent Travel in the [place] Within the Last 8 Weeks: No Recent Travel Out of the Country Within the Last 8 Weeks: No - Immunization History Tetanus Immunization: <5 Years Hx Influenza Vaccine This Season: Yes Medications and Allergies Active Medications: Active Medications Acetaminophen/Codeine Phosphate (Tylenol W/Cod #3) 1 tab PO Q4H PRN PRN Reason: PAIN SCALE 1 TO 10 Last Admin: 07/22/18 07:45 Dose: 1 tab Al Hydroxide/Mg Hydroxide (Milk Of Magnmontana Liq) 30 ml PO Q12H PRN PRN Reason: Mild Constipation Bisacodyl (Dulcolax Supp) 10 mg RECTAL DAILY PRN PRN Reason: SEVERE CONSITIPATION Dextrose (D50w Vial) 50 ml IV.PUSH UNSCH PRN PRN Reason: PER HYPOGLYCEMIA PROTOCOL Doxepin HCl (Sinequan) 25 mg PO DAILY [facility] Glucagon (Glucagon Inj) 1 mg OTHER PRN PRN PRN Reason: for Hypoglycemia Protocol Insulin Aspart (Novolog Insulin Correctional Sugar Inj) 0 unit SQ ACHS [facility]; Protocol Last Admin: 07/21/18 23:00 Dose: Not Given Lactulose (Lactulose Liq) 30 ml PO DAILY PRN PRN Reason: SEVERE CONSITIPATION Senna/Docusate Sodium (Denise-Colace) 1 tab PO BID [facility] Last Admin: 07/21/18 21:57 Dose: 1 tab Sennosides (Senokot) 17.2 mg PO Q12H PRN PRN Reason: Moderate Constipation Tamsulosin HCl (Flomax) 0.4 mg PO DAILY [facility] Allergies Allergy/AdvReac Type Severity Reaction Status Date / Time No Known Allergies Allergy Unverified 07/21/18 11:29 Exam Vital signs: Vital Signs 07/21/18 11:29 07/21/18 11:40 07/21/18 11:54 Temperature 97.8 F Pulse Rate 86 79 Respiratory Rate 16 17 Blood Pressure 141/62 H Pulse Oximetry 94 L 99 07/21/18 18:14 07/21/18 19:22 07/21/18 19:25 Temperature 97.7 F Pulse Rate 79 Respiratory Rate 18 Blood Pressure 166/76 H Pulse Oximetry 97 100 96 07/21/18 20:00 07/21/18 23:09 07/22/18 04:00 Temperature 98.2 F 98.7 F Pulse Rate 82 89 Respiratory Rate 19 19 20 Blood Pressure 145/67 H 149/65 H Pulse Oximetry 100 100 99 Intake & Output 07/21/18 07/22/18 07/22/18 18:59 06:59 18:59 Weight 55.792 kg Narrative: GENERAL: in NAD, SKIN: Warm and dry. HEAD: Atraumatic. Normocephalic. EYES: Pupils equal and round. No scleral icterus. ENT: No nasal bleeding or discharge. Mucous membranes pink and moist. NECK: Trachea midline. No JVD. CARDIOVASCULAR: Regular rate and rhythm. RESPIRATORY: No accessory muscle use. GASTROINTESTINAL: Abdomen soft, non-tender, nondistended. MUSCULOSKELETAL: Extremities without clubbing, cyanosis, or edema. No obvious deformities. NEUROLOGICAL: Awake and alert. Oriented 2-3 no aphasia, fluent articulate, No facial asymmetry, OU 3-2mm, eomi, VFF, No drift, Motor grossly within normal limits. Five out of 5 muscle strength in the arms and legs. Tone normal in all 4 limbs, Sensory normal in all 4 extremities to pin, msr 1-2+ sym, no clonus, planterflexor, gait not assessed secondary fall risk PSYCHIATRIC: Appropriate mood and affect; insight and judgment normal. - Constitutional no acute distress - Routine HEENT Exam Head: Present: normocephalic Eye: Present: EOMI Results - Labs CBC & Chem 7: 07/28/18 19:50 07/28/18 13:24 Labs: Laboratory Results - last 24 hr 07/21/18 07/21/18 07/21/18 11:40 11:40 11:40 WBC 7.6 RBC 2.56 L Hgb 8.1 L Hct 24.5 L MCV 95.7 MCH 31.7 MCHC 33.1 RDW 19.5 H Plt Count 223 MPV 6.8 L Neut % (Auto) 68.7 Lymph % (Auto) 12.4 [place] % (Auto) 12.2 H Eos % (Auto) 5.7 H Baso % (Auto) 1.0 Neut # (Auto) 5.2 Lymph # (Auto) 0.9 L [place] # (Auto) 0.9 Eos # (Auto) 0.4 Baso # (Auto) 0.1 WBC Differential . Differential Comment Auto diff final PT 10.2 INR 1.0 APTT 21.7 L Sodium 143 Potassium 5.1 Chloride 107 Carbon Dioxide 27.8 Anion Gap 8 BUN 27 H Creatinine 7.57 H Estimated GFR 8 L POC Glucose Random Glucose 96 Calcium 8.1 L Magnesium 3.9 H Total Bilirubin 0.4 AST 20 ALT 19 Alkaline Phosphatase 49 Troponin I Total Protein 6.4 Albumin 2.7 L 07/21/18 07/21/18 07/21/18 11:40 20:00 21:59 WBC RBC Hgb Hct MCV MCH MCHC RDW Plt Count MPV Neut % (Auto) Lymph % (Auto) [place] % (Auto) Eos % (Auto) Baso % (Auto) Neut # (Auto) Lymph # (Auto) [place] # (Auto) Eos # (Auto) Baso # (Auto) WBC Differential Differential Comment PT INR APTT Sodium 141 Potassium 4.9 Chloride 105 Carbon Dioxide 28.5 Anion Gap 8 BUN 31 H Creatinine 8.64 H Estimated GFR 7 L POC Glucose 162 H Random Glucose 141 H Calcium 8.5 Magnesium Total Bilirubin 0.4 AST 20 ALT 19 Alkaline Phosphatase 54 Troponin I Less than 0.02 L Total Protein 6.6 Albumin 2.9 L 07/21/18 07/22/18 23:06 07:33 WBC RBC Hgb Hct MCV MCH MCHC RDW Plt Count MPV Neut % (Auto) Lymph % (Auto) [place] % (Auto) Eos % (Auto) Baso % (Auto) Neut # (Auto) Lymph # (Auto) [place] # (Auto) Eos # (Auto) Baso # (Auto) WBC Differential Differential Comment PT INR APTT Sodium Potassium Chloride Carbon Dioxide Anion Gap BUN Creatinine Estimated GFR POC Glucose 122 H 89 Random Glucose Calcium Magnesium Total Bilirubin AST ALT Alkaline Phosphatase Troponin I Total Protein Albumin - Imaging Impressions Cervical Spine CT 07/21/18 11:36 CONCLUSION: 1. No evidence of acute fracture, traumatic listhesis or significant soft tissue abnormality. 2. Severe degenerative disc disease with collapse of the disc and partial ankylosis at C3-4, C4-5 and C5-6. 3. Severe degenerative disc disease at C6-7 with foraminal encroachment. 4. Severe atlantoaxial degenerative disease 5. Reversal of normal cervical lordosis and mild degenerative anterolisthesis at C3-4. Chest X-Ray 07/21/18 11:36 CONCLUSION: Minimal improvement in consolidative changes right base. Head CT 07/21/18 11:36 CONCLUSION: 1. Negative for acute process . Review/Management - Diagnosis (1) Hypertension Code(s): I10 - Essential (primary) hypertension Status: Chronic Current Visit: No (2) End stage renal disease Code(s): N18.6 - End stage renal disease Status: Acute Current Visit: Yes (3) Anemia in chronic kidney disease Code(s): N18.9 - Chronic kidney disease, unspecified; D63.1 - Anemia in chronic kidney disease Status: Acute Current Visit: Yes (4) Syncope, near Code(s): R55 - Syncope and collapse Status: Acute Current Visit: Yes - Review/Management Plan: We will obtain orthostatic blood pressures on this patient PT get evaluation (1) Hypertension Qualifiers: Hypertension type: essential hypertension Qualified Code(s): I10 - Essential (primary) hypertension (3) Anemia in chronic kidney disease Qualifiers:
[2018-07-22] MEDS: Insulin NovoLOG Aspart Correctional Sugar Inj SQ SCH ×4 (08:01→20:51)
[2018-07-22] MEDS: Senna/Docusate Sodium 8.6/50 MG Tablet PO SCH ×2 (08:40→21:08)
[2018-07-22] MEDS ORDERED: Acetaminophen 325 MG Tablet PO PRN (09:03)
[2018-07-22] MEDS ORDERED: Sod Chloride 0.9% Inj 1,000 ML IV.CONT PRN (09:03)
[2018-07-22] MEDS ORDERED: Heparin 10,000 UNITS/10 ML Vial (for IV use) OTHER PRN (09:03)
[2018-07-22] MEDS ORDERED: Sod Chloride 0.9% Inj 1,000 ML OTHER PRN ×2 (09:03)
[2018-07-22] MEDS ORDERED: Gelatin 12 MM/7 MM Topical Foam TOPICAL PRN (09:03)
--- NOTE | 2018-07-22 10:52 | P.CONNP ---
History of Present Illness Reason for Consult: End-stage renal disease. Primary Care Provider: UNKNOWN Family Provider: Nishant Johnson DO History of Present Illness: This patient is an 82-year-old -[place] male who was diagnosed as having end-stage renal disease May 2018. Patient was not previously known to my service and there was a remote history of urological issues. There was evidence of hydronephrosis on imaging studies however urological consultation was obtained and a nuclear scan with Lasix washout was performed which showed no evidence of fixed obstruction. Urology indicated no intervention was indicated on a part. Patient had evidence of progressive azotemia during that admission with development of uremic symptoms and dialysis was initiated with improvement of his metabolic and mental status. However the patient has not been accepting of the fact that he is dialysis dependent refusing to have an AV dialysis access created indicating that he wants his dialysis time reduced today to only 1 hour after initially refusing dialysis today. Now requesting second opinion regarding whether or not he is dialysis dependent. Patient admitted on this occasion with a history suggestive of syncope or near syncope. Neurological evaluation in progress. 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 - Medical History Medical History: Medical History (Last Reviewed 07/22/18 @ 08:52 by Nidhi Constantino) Acute hemodialysis patient Anemia BPH loc w urin obs/LUTS COPD (chronic obstructive pulmonary disease) Dysphagia End stage renal disease Hypertension Impaired mobility and ADLs Oxygen dependent Vascular dialysis catheter in place - Surgical History Surgical History: Surgical History (Last Reviewed 07/22/18 @ 08:52 by Nidhi Constantino) H/O hernia repair - Tobacco History Second Hand Smoke Exposure: No Tobacco Use In Past 30 Days: No Smoking Status: Former smoker Tobacco Type: Cigarettes - Alcohol History How Often Do You Have a Drink Containing Alcohol: Never - Substance Use History Substance History: No History of Abuse - Travel History Recent Travel in the [place] Within the Last 8 Weeks: No Recent Travel Out of the Country Within the Last 8 Weeks: No - Immunization History Tetanus Immunization: <5 Years Hx Influenza Vaccine This Season: Yes Medications and Allergies Active Medications: Active Medications Acetaminophen (Tylenol) 650 mg PO UNSCH PRN PRN Reason: SEE LABEL COMMENTS Acetaminophen/Codeine Phosphate (Tylenol W/Cod #3) 1 tab PO Q4H PRN PRN Reason: PAIN SCALE 1 TO 10 Last Admin: 07/22/18 07:45 Dose: 1 tab Al Hydroxide/Mg Hydroxide (Milk Of Magnesia Liq) 30 ml PO Q12H PRN PRN Reason: Mild Constipation Bisacodyl (Dulcolax Supp) 10 mg RECTAL DAILY PRN PRN Reason: SEVERE CONSITIPATION Clonidine HCl (Catapres) 0.1 mg PO UNSCH PRN PRN Reason: SEE LABEL COMMENTS Dextrose (D50w Vial) 50 ml IV.PUSH UNSCH PRN PRN Reason: PER HYPOGLYCEMIA PROTOCOL Diphenhydramine HCl (Benadryl) 25 mg PO UNSCH PRN PRN Reason: SEE LABEL COMMENTS Doxepin HCl (Sinequan) 25 mg PO DAILY [facility] Last Admin: 07/22/18 08:40 Dose: 25 mg Gelatin (Gelfoam 12 Mm/7 Mm Topical) 1 foam TOPICAL PRN PRN PRN Reason: help stop bleeding from site Gentamicin Sulfate (Gentamicin Inj) 20 mg OTHER WITH DIALYSIS PRN PRN Reason: Dwell Gentamycin Lock Glucagon (Glucagon Inj) 1 mg OTHER PRN PRN PRN Reason: for Hypoglycemia Protocol Heparin Sodium (Porcine) (Heparin Inj) 8,000 units OTHER WITH DIALYSIS PRN PRN Reason: for machine prime Heparin Sodium (Porcine) (Heparin Inj) 1,000 units OTHER WITH DIALYSIS PRN PRN Reason: Dwell Heparin to Fill Catheter Albumin Human (Flexbumin 25% Inj) 100 mls @ 60 mls/hr IV.SIG WITH DIALYSIS PRN PRN Reason: hypotension / volume replace Sodium Chloride (Ns Inj) 1,000 mls @ 0 mls/hr OTHER .Q0M PRN PRN Reason: for prime and rinse back Sodium Chloride (Ns Inj) 1,000 mls @ 200 mls/hr OTHER .Q5H PRN PRN Reason: for dialyzer flush PRN Sodium Chloride (Ns Inj) 1,000 mls @ 0 mls/hr IV.CONT .Q0M PRN PRN Reason: hypotension / volume replace Insulin Aspart (Novolog Insulin Correctional Sugar Inj) 0 unit SQ ACHS [facility]; Protocol Last Admin: 07/22/18 08:01 Dose: Not Given Lactulose (Lactulose Liq) 30 ml PO DAILY PRN PRN Reason: SEVERE CONSITIPATION Mannitol (Mannitol Inj) 12.5 gm IV.PUSH UNSCH PRN PRN Reason: hypotension / volume replace Nitroglycerin (Nitrostat Sl) 0.4 mg SL Q5M PRN PRN Reason: CHEST PAIN Ondansetron HCl (Zofran Inj) 4 mg IV.PUSH UNSCH PRN PRN Reason: NAUSEA OR VOMITING Senna/Docusate Sodium (Denise-Colace) 1 tab PO BID [facility] Last Admin: 07/22/18 08:40 Dose: 1 tab Sennosides (Senokot) 17.2 mg PO Q12H PRN PRN Reason: Moderate Constipation Sodium Chloride (Ns Flush) 5 ml IV.FLUSH PRN PRN PRN Reason: flush each lumen during HD Tamsulosin HCl (Flomax) 0.4 mg PO DAILY [facility] Last Admin: 07/22/18 08:40 Dose: 0.4 mg Allergies Allergy/AdvReac Type Severity Reaction Status Date / Time No Known Allergies Allergy Unverified 07/21/18 11:29 Exam Vital signs: Vital Signs 07/21/18 11:29 07/21/18 11:40 07/21/18 11:54 Temperature 97.8 F Pulse Rate 86 79 Respiratory Rate 16 17 Blood Pressure 141/62 H Pulse Oximetry 94 L 99 07/21/18 18:14 07/21/18 19:22 07/21/18 19:25 Temperature 97.7 F Pulse Rate 79 Respiratory Rate 18 Blood Pressure 166/76 H Pulse Oximetry 97 100 96 07/21/18 20:00 07/21/18 23:09 07/22/18 04:00 Temperature 98.2 F 98.7 F Pulse Rate 82 89 Respiratory Rate 19 19 20 Blood Pressure 145/67 H 149/65 H Pulse Oximetry 100 100 99 07/22/18 08:00 Temperature 98.6 F Pulse Rate 84 Respiratory Rate 12 Blood Pressure 117/62 Pulse Oximetry 99 Intake & Output 07/21/18 07/22/18 07/22/18 18:59 06:59 18:59 Weight 55.792 kg Narrative: GENERAL: Thin elderly -[place] male lying in bed not in respiratory distress. Hemodialysis catheter in place appears to be intact. SKIN: Warm and dry. HEAD: Normocephalic. EYES: No scleral icterus. No injection or drainage. NECK: Supple, trachea midline. No JVD or lymphadenopathy. CARDIOVASCULAR: Regular rate and rhythm without murmurs, gallops, or rubs. RESPIRATORY: Breath sounds equal bilaterally. No accessory muscle use. GASTROINTESTINAL: Abdomen soft, non-tender, nondistended. MUSCULOSKELETAL: No cyanosis, or edema. Results - Lab Results 07/21/18 11:40 07/21/18 20:00 Most recent lab results Calcium 8.5 mg/dL (8.5-10.1) 07/21/18 20:00 Magnesium 3.9 mg/dL (1.5-2.5) H 07/21/18 11:40 Assessment and Plan - Assessment (1) End stage renal disease Code(s): N18.6 - End stage renal disease Status: Acute Plan: My opinion the patient does have end-stage renal disease and hemodialysis is indicated as long as the patient wishes to avoid from terminal renal failure which is his decision. Should be noted that his clinical status improved significantly after dialysis was initiated. After discussion with patient and he agrees to proceed with dialysis today however would like a second opinion regarding whether or not he is dialysis dependent. In addition patient has been manifesting some noncompliance refusing to be evaluated for an AV dialysis fistula despite being counseled regarding serious potential complications associated with continued hemodialysis PermCath usage. Also constantly requiring that his dialysis frequency and/or time be reduced despite potential adverse outcomes associated with same. If patient continues to refuse adequate dialysis care would recommend palliative care consultation. Medication should be adjusted for his end-stage renal disease when indicated. Avoid gadolinium. (2) Hydronephrosis Code(s): N13.30 - Unspecified hydronephrosis Status: Acute Onset Date: ~10/28 Plan: Chronic. As indicated renal nuclear scan with washout indicated an absence of a fixed obstruction and he was evaluated by urology during his last admission and no intervention was indicated. (3) Hypertension Code(s): I10 - Essential (primary) hypertension Status: Chronic (4) Anemia of renal disease Code(s): D63.1 - Anemia in chronic kidney disease Status: Acute Plan: Check iron saturation and ferritin. Continue Epogen for anemia of renal disease. (2) Hydronephrosis Qualifiers: Hydronephrosis type: other Qualified Code(s): N13.39 - Other hydronephrosis (3) Hypertension Qualifiers: Hypertension type: essential hypertension Qualified Code(s): I10 - Essential (primary) hypertension
[2018-07-22] MEDS: Albumin Human 25% Inj 100 ML IV.SIG PRN (12:05)
--- NOTE | 2018-07-22 12:25 | P.PNFP ---
Subjective Interval history: Voices he is tired and weak. sob with excretion Questioning the need for dialysis. Results - Labs Result diagrams: 07/21/18 11:40 07/21/18 20:00 Abnormal lab results 07/21/18 07/21/18 07/21/18 Range/Units 11:40 11:40 11:40 APTT 21.7 L (24.3-30.1) sec BUN 27 H (7-18) mg/dL Creatinine 7.57 H (0.60-1.30) mg/dL Estimated GFR 8 L (>89) mL/min POC Glucose (68-110) mg/dl Random Glucose (74-106) mg/dL Calcium 8.1 L (8.5-10.1) mg/dL Magnesium 3.9 H (1.5-2.5) mg/dL Troponin I Less than 0.02 L (0.02-0.05) ng/mL Albumin 2.7 L (3.4-5.0) g/dL 07/21/18 07/21/18 07/21/18 Range/Units 20:00 21:59 23:06 APTT (24.3-30.1) sec BUN 31 H (7-18) mg/dL Creatinine 8.64 H (0.60-1.30) mg/dL Estimated GFR 7 L (>89) mL/min POC Glucose 162 H 122 H (68-110) mg/dl Random Glucose 141 H (74-106) mg/dL Calcium (8.5-10.1) mg/dL Magnesium (1.5-2.5) mg/dL Troponin I (0.02-0.05) ng/mL Albumin 2.9 L (3.4-5.0) g/dL BMP 07/21/18 07/21/18 11:40 20:00 Sodium 143 141 Potassium 5.1 4.9 Chloride 107 105 Carbon Dioxide 27.8 28.5 BUN 27 H 31 H Creatinine 7.57 H 8.64 H Calcium 8.1 L 8.5 Cardiac Enzymes 07/21/18 Range/Units 11:40 Troponin I Less than 0.02 L (0.02-0.05) ng/mL Liver Function 07/21/18 07/21/18 Range/Units 11:40 20:00 Total Bilirubin 0.4 0.4 (0.2-1.0) mg/dL AST 20 20 (15-37) U/L ALT 19 19 (12-78) U/L Alkaline Phosphatase 49 54 (45-117) U/L Albumin 2.7 L 2.9 L (3.4-5.0) g/dL - Imaging Impressions Cervical Spine CT 07/21/18 11:36 CONCLUSION: 1. No evidence of acute fracture, traumatic listhesis or significant soft tissue abnormality. 2. Severe degenerative disc disease with collapse of the disc and partial ankylosis at C3-4, C4-5 and C5-6. 3. Severe degenerative disc disease at C6-7 with foraminal encroachment. 4. Severe atlantoaxial degenerative disease 5. Reversal of normal cervical lordosis and mild degenerative anterolisthesis at C3-4. Chest X-Ray 07/21/18 11:36 CONCLUSION: Minimal improvement in consolidative changes right base. Head CT 07/21/18 11:36 CONCLUSION: 1. Negative for acute process . Physical Exam Vital signs: Vital Signs 07/21/18 18:14 07/21/18 19:22 07/21/18 19:25 Temperature 97.7 F Pulse Rate 79 Respiratory Rate 18 Blood Pressure 166/76 H Pulse Oximetry 97 100 96 07/21/18 20:00 07/21/18 23:09 07/22/18 04:00 Temperature 98.2 F 98.7 F Pulse Rate 82 89 Respiratory Rate 19 19 20 Blood Pressure 145/67 H 149/65 H Pulse Oximetry 100 100 99 07/22/18 08:00 Temperature 98.6 F Pulse Rate 84 Respiratory Rate 12 Blood Pressure 117/62 Pulse Oximetry 98 Intake & Output 07/21/18 07/22/18 07/22/18 18:59 06:59 18:59 Weight 55.792 kg - Constitutional thin, cooperative - Routine HEENT Exam Eye: Present: PERRL ENT: Present: mucous membranes moist - Routine Respiratory Exam Present: rhonchi Comments: diminished LL - Routine Cardiovascular Exam Present: S1, S2 - Routine Abdominal Exam Present: soft, normoactive bowel sounds - Routine Neurological Exam Present: alert - Urinary Catheter Management Straight Cath placed during this visit: yes Reason for continuing: Not indwelling catheter Insertion date: 07/21/18 Insertion time: 13:16 Assessment and Plan - Assessment (1) End stage renal disease Code(s): N18.6 - End stage renal disease Status: Acute Plan: Non compliant with HD, Has agreed to have dialysis today. Renal on case, recommend's Palliative consult if non compliance continued (2) Syncope and collapse Code(s): R55 - Syncope and collapse Status: Acute Plan: appears as though patient was taking both neurontin and lyrica at the same time will dc both (3) Acute exacerbation of COPD with asthma Code(s): J44.1 - Chronic obstructive pulmonary disease with (acute) exacerbation ; J45.901 - Unspecified asthma with (acute) exacerbation Status: Acute Onset Date: ~05/22/18 Plan: Oxygen supplement, bronchodilators. (4) Hypertension Code(s): I10 - Essential (primary) hypertension Status: Chronic Plan: Cont home medication, monitor - Assessment and Plan have pt eval, Comanagement consult for placement. (4) Hypertension Qualifiers: Hypertension type: essential hypertension Qualified Code(s): I10 - Essential (primary) hypertension
[2018-07-22 12:58] LABS: Thyroid Stimulating Hormone 0.305 uIU/mL (0.358-3.740)
[2018-07-22] MEDS: Heparin 10,000 UNITS/10 ML Vial (for IV use) OTHER PRN (13:54)
[2018-07-22] MEDS ORDERED: Epoetin Alfa Inj 20,000 UNIT/ML Vial SQ ONE (16:00)
--- NOTE | 2018-07-22 16:03 | ECG ---
Date Performed: 07/21/2018 Time Performed: 11:47:32 PTAGE: 82 years EKG: Sinus rhythm NORMAL ECG PREVIOUS TRACING : 05/22/2018 19.34 Compared to previous tracing, [id number] have returned to the anterior wall. Clinical correlation is recommended DOCTOR: Aj Serrato Interpretating Date/Time 07/22/2018 16:02:08
--- NOTE | 2018-07-23 08:35 | P.PNFP ---
Subjective Interval history: Complains of LE pain Denies SOB, CP Had temp yesterday 100.3 Dialysis yesterday Results - Labs Result diagrams: 07/21/18 11:40 07/21/18 20:00 Abnormal lab results 07/22/18 07/22/18 07/22/18 Range/Units 11:35 15:39 20:18 POC Glucose 136 H 124 H (68-110) mg/dl Vitamin B12 1091 H (193-986) pg/mL TSH 0.305 L (0.358-3.740) uIU/mL - Imaging Cervical Spine CT 07/21/18 11:36 CONCLUSION: 1. No evidence of acute fracture, traumatic listhesis or significant soft tissue abnormality. 2. Severe degenerative disc disease with collapse of the disc and partial ankylosis at C3-4, C4-5 and C5-6. 3. Severe degenerative disc disease at C6-7 with foraminal encroachment. 4. Severe atlantoaxial degenerative disease 5. Reversal of normal cervical lordosis and mild degenerative anterolisthesis at C3-4. Chest X-Ray 07/21/18 11:36 CONCLUSION: Minimal improvement in consolidative changes right base. Head CT 07/21/18 11:36 CONCLUSION: 1. Negative for acute process . Physical Exam Vital signs: Vital Signs 07/22/18 16:00 07/22/18 19:52 07/22/18 23:52 Temperature 101.3 F H 100.3 F H 99.4 F Pulse Rate 114 H 116 H 85 Respiratory Rate 16 18 Blood Pressure 115/57 L 100/56 L 142/64 H Pulse Oximetry 94 L 94 L 99 07/23/18 03:48 Temperature 99.7 F H Pulse Rate 91 H Respiratory Rate 19 Blood Pressure 135/65 Pulse Oximetry 95 Intake & Output 07/22/18 07/23/18 07/23/18 18:59 06:59 18:59 Intake Total 940 / 940 Output Total 1500 / 1500 Balance -560 / -560 Intake: IV 100 / 100 Flexbumin 25% Inj 100 ML @ 60 100 / 100 mls/hr IV.SIG WITH DIALYSIS PRN Rx#:[id number] Oral 840 / 840 Output: Hemodialysis Amount 1500 / 1500 - Constitutional no acute distress - Routine HEENT Exam Eye: Present: PERRL - Routine Neck Exam Present: supple - Routine Respiratory Exam Present: decreased breath sounds, rhonchi - Routine Cardiovascular Exam Present: S1, S2 - Routine Abdominal Exam Present: soft, normoactive bowel sounds - Routine Skin Exam Present: dry, warm - Routine Neurological Exam Present: alert, moving all extremities - Routine Psychiatric Exam Present: cooperative - Urinary Catheter Management Straight Cath placed during this visit: yes Reason for continuing: Not indwelling catheter Insertion date: 07/21/18 Insertion time: 13:16 Assessment and Plan - Assessment (1) End stage renal disease Code(s): N18.6 - End stage renal disease Status: Acute Plan: Non compliant with HD, Has agreed to have dialysis today. Renal on case, recommend's Palliative consult if non compliance continued (2) Syncope and collapse Code(s): R55 - Syncope and collapse Status: Acute Plan: appears as though patient was taking both neurontin and lyrica at the same time will dc both (3) Acute exacerbation of COPD with asthma Code(s): J44.1 - Chronic obstructive pulmonary disease with (acute) exacerbation ; J45.901 - Unspecified asthma with (acute) exacerbation Status: Acute Onset Date: ~05/22/18 Plan: Oxygen supplement, bronchodilators. (4) Hypertension Code(s): I10 - Essential (primary) hypertension Status: Chronic Plan: Cont home medication, monitor - Assessment and Plan 07/23/18- Seen this am, he has been running temp 100.3 yesterday and this am 99.7. Blood cultures pending. he is again unsure if he want to continue Dialyses Will consult palliative care. (4) Hypertension Qualifiers: Hypertension type: essential hypertension Qualified Code(s): I10 - Essential (primary) hypertension
[2018-07-23] MEDS: Acetaminophen/Codeine 300/30 MG Tablet PO PRN (08:55)
[2018-07-23] MEDS: Senna/Docusate Sodium 8.6/50 MG Tablet PO SCH ×2 (08:55→21:13)
[2018-07-23] MEDS: Insulin NovoLOG Aspart Correctional Sugar Inj SQ SCH ×4 (08:59→21:13)
--- NOTE | 2018-07-23 09:16 | P.PNNEU ---
Subjective Subjective Comments: Feels well denies any headache fever night sweats chills or any focal weakness Active Medications: Active Medications Acetaminophen/Codeine Phosphate (Tylenol W/Cod #3) 1 tab PO Q4H PRN PRN Reason: PAIN SCALE 1 TO 10 Last Admin: 07/23/18 08:55 Dose: 1 tab Al Hydroxide/Mg Hydroxide (Milk Of Luke Liarmen) 30 ml PO Q12H PRN PRN Reason: Mild Constipation Albuterol (Duoneb Neb (Prn)) 1 ampul NEB Q4HR NEB PRN PRN Reason: sob Bisacodyl (Dulcolax Supp) 10 mg RECTAL DAILY PRN PRN Reason: SEVERE CONSITIPATION Clonidine HCl (Catapres) 0.1 mg PO UNSCH PRN PRN Reason: SEE LABEL COMMENTS Dextrose (D50w Vial) 50 ml IV.PUSH UNSCH PRN PRN Reason: PER HYPOGLYCEMIA PROTOCOL Diphenhydramine HCl (Benadryl) 25 mg PO UNSCH PRN PRN Reason: SEE LABEL COMMENTS Doxepin HCl (Sinequan) 25 mg PO DAILY LALITO Last Admin: 07/23/18 08:55 Dose: 25 mg Gelatin (Gelfoam 12 Mm/7 Mm Topical) 1 foam TOPICAL PRN PRN PRN Reason: help stop bleeding from site Gentamicin Sulfate (Gentamicin Inj) 20 mg OTHER WITH DIALYSIS PRN PRN Reason: Dwell Gentamycin Lock Last Admin: 07/22/18 13:54 Dose: 20 mg Glucagon (Glucagon Inj) 1 mg OTHER PRN PRN PRN Reason: for Hypoglycemia Protocol Heparin Sodium (Porcine) (Heparin Inj) 8,000 units OTHER WITH DIALYSIS PRN PRN Reason: for machine prime Heparin Sodium (Porcine) (Heparin Inj) 1,000 units OTHER WITH DIALYSIS PRN PRN Reason: Dwell Heparin to Fill Catheter Last Admin: 07/22/18 13:54 Dose: 1,000 units Albumin Human (Flexbumin 25% Inj) 100 mls @ 60 mls/hr IV.SIG WITH DIALYSIS PRN PRN Reason: hypotension / volume replace Last Infusion: 07/22/18 16:29 Dose: Infused Sodium Chloride (Ns Inj) 1,000 mls @ 0 mls/hr OTHER .Q0M PRN PRN Reason: for prime and rinse back Sodium Chloride (Ns Inj) 1,000 mls @ 200 mls/hr OTHER .Q5H PRN PRN Reason: for dialyzer flush PRN Sodium Chloride (Ns Inj) 1,000 mls @ 0 mls/hr IV.CONT .Q0M PRN PRN Reason: hypotension / volume replace Insulin Aspart (Novolog Insulin Correctional Sugar Inj) 0 unit SQ ACHS [facility]; Protocol Last Admin: 07/23/18 08:59 Dose: Not Given Lactulose (Lactulose Liq) 30 ml PO DAILY PRN PRN Reason: SEVERE CONSITIPATION Mannitol (Mannitol Inj) 12.5 gm IV.PUSH UNSCH PRN PRN Reason: hypotension / volume replace Nitroglycerin (Nitrostat Sl) 0.4 mg SL Q5M PRN PRN Reason: CHEST PAIN Ondansetron HCl (Zofran Inj) 4 mg IV.PUSH UNSCH PRN PRN Reason: NAUSEA OR VOMITING Senna/Docusate Sodium (Denise-Colace) 1 tab PO BID [facility] Last Admin: 07/23/18 08:55 Dose: 1 tab Sennosides (Senokot) 17.2 mg PO Q12H PRN PRN Reason: Moderate Constipation Sodium Chloride (Ns Flush) 5 ml IV.FLUSH PRN PRN PRN Reason: flush each lumen during HD Tamsulosin HCl (Flomax) 0.4 mg PO DAILY [facility] Last Admin: 07/23/18 08:55 Dose: 0.4 mg Allergies/Adverse Reactions: Allergies Allergy/AdvReac Type Severity Reaction Status Date / Time No Known Allergies Allergy Unverified 07/21/18 11:29 Review of Systems All other systems reviewed negative except as stated in HPI Physical Exam Vital signs: Vital Signs 07/22/18 16:00 07/22/18 19:52 07/22/18 23:52 Temperature 101.3 F H 100.3 F H 99.4 F Pulse Rate 114 H 116 H 85 Respiratory Rate 16 18 Blood Pressure 115/57 L 100/56 L 142/64 H Pulse Oximetry 94 L 94 L 99 07/23/18 03:48 07/23/18 08:00 Temperature 99.7 F H 99.3 F Pulse Rate 91 H 88 Respiratory Rate 19 20 Blood Pressure 135/65 98/53 L Pulse Oximetry 95 98 Intake & Output 07/22/18 07/23/18 07/23/18 18:59 06:59 18:59 Intake Total 940 / 940 Output Total 1500 / 1500 Balance -560 / -560 Intake: IV 100 / 100 Flexbumin 25% Inj 100 ML @ 60 100 / 100 mls/hr IV.SIG WITH DIALYSIS PRN Rx#:[id number] Oral 840 / 840 Output: Hemodialysis Amount 1500 / 1500 Narrative: GENERAL: in NAD, SKIN: Warm and dry. HEAD: Atraumatic. Normocephalic. EYES: Pupils equal and round. No scleral icterus. ENT: No nasal bleeding or discharge. Mucous membranes pink and moist. NECK: Trachea midline. No JVD. CARDIOVASCULAR: Regular rate and rhythm. RESPIRATORY: No accessory muscle use. GASTROINTESTINAL: Abdomen soft, non-tender, nondistended. MUSCULOSKELETAL: Extremities without clubbing, cyanosis, or edema. No obvious deformities. NEUROLOGICAL: Awake and alert. Oriented 2-3 no aphasia, fluent articulate, No facial asymmetry, OU 3-2mm, eomi, VFF, No drift, Motor grossly within normal limits. Five out of 5 muscle strength in the arms and legs. Tone normal in all 4 limbs, Sensory normal in all 4 extermities to pin, msr 1-2+ sym, no clonus, planterflexor, gait not assessed secondary fall risk PSYCHIATRIC: Appropriate mood and affect; insight and judgment normal. - Constitutional no acute distress - Routine HEENT Exam Head: Present: normocephalic Eye: Present: EOMI - Urinary Catheter Management Straight Cath placed during this visit: yes Reason for continuing: Not indwelling catheter Insertion date: 07/21/18 Insertion time: 13:16 Objective Laboratory Results - last 24 hr 07/22/18 07/22/18 07/22/18 11:35 11:44 15:39 POC Glucose 106 136 H Vitamin B12 1091 H TSH 0.305 L 07/22/18 07/22/18 07/23/18 17:32 20:18 08:10 POC Glucose 105 124 H 89 Vitamin B12 TSH Review/Management - Diagnosis (1) Hypertension Code(s): I10 - Essential (primary) hypertension Status: Chronic Current Visit: No (2) End stage renal disease Code(s): N18.6 - End stage renal disease Status: Acute Current Visit: Yes (3) Anemia in chronic kidney disease Code(s): N18.9 - Chronic kidney disease, unspecified; D63.1 - Anemia in chronic kidney disease Status: Acute Current Visit: Yes (4) Syncope, near Code(s): R55 - Syncope and collapse Status: Acute Current Visit: Yes - Review/Management Plan: Syncope secondary orthostatic hypotension Recommendation Follow-up orthostatic blood pressures Discussed with RN to document in the EMR (1) Hypertension Qualifiers: Hypertension type: essential hypertension Qualified Code(s): I10 - Essential (primary) hypertension (3) Anemia in chronic kidney disease Qualifiers:
--- NOTE | 2018-07-23 11:04 | P.CONPAL ---
Consult Service: Palliative Care Requesting Physician: Jocy Anguiano Reason for Consult: a. To assist with evaluation and management of symptoms including: Pain, debility b. To assist medical decision maker(s) with: better understanding of current medical conditions; weighing benefits/burdens of medical treatment options; making medical treatment decisions. Primary Care Provider: UNKNOWN History of Present Illness History of Present Illness: Mr. Hancock is an 82 year old patient who presented to [facility] on 07/21/2018 via EMS for evaluation of generalized weakness and falls. EMS reports the patient was initially hypotensive on exam with a systolic pressure in the 80s. The patient reported ongoing weakness with recent falls. He had a syncopal episode the day before in which he fell hitting his head. Patient denied LOC. Patient c/o chronic neck pain rated 3/10 and intermittent headaches. Of note, patient is on hemodialysis 3 days a week (). Diagnostic data: * Vital signs: Pulse 86, respirations 16, BP 141/62, oxygen saturation 94% on 2 L via nasal cannula and oral temperature of 97.8 * WBC: 7.6, hemoglobin 8.1, hematocrit 24.5, platelets 223, neutrophils 68.7% * PT: 10.2, INR 1.0, APTT 21.7 * Sodium: 143, potassium 5.1, chloride 107, carbon dioxide 27.8, glucose 96, calcium 8.1, magnesium 3.9 * BUN: 27, creatinine 7.57, GFR 8 * Total bilirubin: 0.4, AST 20, ALT 19, alkaline phosphatase 49 * Troponin: <0.02 * Total protein: 6.4, albumin 2.7 * EKG showing sinus rhythm * Chest x-ray showed minimal improvement in consolidative changes in the right base. Left lung was clear. The heart and pulmonary vascularity were normal. * CT head was negative for acute process * CT cervical spine showed no evidence of acute fractures, traumatic listhesis or significant soft tissue abnormality. Severe degenerative disc disease with collapse of the disc and partial ankylosis at C3-4, C4-5 and C5-6. Severe degenerative disc disease at C6-7 with foraminal encroachment. Severe atlantoaxial degenerative disease. Reversal of normal cervical lordosis and mild degenerative anterior listhesis at C3-4 Patient was admitted for suspected syncopal episode. Neurology was consulted. CT of the head was negative for acute process. EMS reported patient was initially hypotensive with a systolic pressure in the 80s. Systolic pressure increased to 140 after patient received fluid. The orthostatic blood pressures were obtained; Supine BP was 135/67; Sitting BP was 98/53. Unable to obtain blood pressure while standing. Patient had a temp of 100.3 yesterday. Blood cultures pending. Nephrology states the patient had evidence of progressive azotemia during a recent hospitalization with development of uremic symptoms. Dialysis was initiated with subsequent improvement of his metabolic and mental status. The patient has had difficulty accepting that he is dialysis dependent, refusing evaluation for AV fistula. He repeatedly requests the frequency and/or duration of dialysis be reduced despite being counseled that he will from terminal renal failure without hemodialysis. Patient agreed to dialysis on Saturday, but he is requesting a second opinion to determine if he is truly dialysis dependent. Palliative Care was consulted to assist with symptom management and to discuss with the patient/family the benefits and burdens of his current illnesses and the options regarding future care. On exam, patient is awake but lethargic. He is able to answer my questions and follow commands. He complains of generalized weakness, chronic pain in his neck that can be severe at time as well as pain/numbness in his legs. Patient was on gabapentin and lyrica, both are currently being held. In conversation with the patient, he tells me that he will consent dialysis if another kidney doctor tells him it is necessary because without it he will Dr. Granados is known to the patient; consult requested for a second opinion with a different pest controller assistant. Function/Cognitive Trajectory: Patient was transferred to [facility] for rehab after being hospitalized in May,. Per note, patient was recently discharged from the nursing facility and was living with his nephew. Patient states he lives alone. He is oxygen dependent at home. Further information pending conversation with patient 's family. 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 - Medical History Medical History: Medical History (Last Updated 07/23/18 @ 12:23 by TEMO Preston) BPH loc w urin obs/LUTS (Acute) COPD (chronic obstructive pulmonary disease) (Acute) Hypertension (Acute) Degenerative disc disease ESRD (end stage renal disease) on dialysis GERD (gastroesophageal reflux disease) History of alcohol dependence History of squamous cell carcinoma Anemia - Surgical History Surgical History: Surgical History (Last Reviewed 07/24/18 @ 06:12 by Laureen Mariee MD) H/O hernia repair - Family History Family History: Family History (Last Updated 07/23/18 @ 12:24 by TEMO Preston) Other Family history of cancer - Social History I have reviewed the patient's Social History: Yes - Tobacco History Second Hand Smoke Exposure: No Tobacco Use In Past 30 Days: No Smoking Status: Former smoker (34-[id number]-[id number] smoking history) Tobacco Type: Cigarettes Packs Per Day: 2 Cigarettes Per Day: 40 Years Smoked: 40 years: 80 - Alcohol History How Often Do You Have a Drink Containing Alcohol: Never (History of alcohol dependence) - Substance Use History Substance History: No History of Abuse - Travel History Recent Travel in the [place] Within the Last 8 Weeks: No Recent Travel Out of the Country Within the Last 8 Weeks: No - Immunization History Tetanus Immunization: <5 Years Hx Influenza Vaccine This Season: Yes Medications and Allergies Active Medications: Active Medications Acetaminophen/Codeine Phosphate (Tylenol W/Cod #3) 1 tab PO Q4H PRN PRN Reason: PAIN SCALE 1 TO 10 Last Admin: 07/23/18 08:55 Dose: 1 tab Al Hydroxide/Mg Hydroxide (Milk Of Luke Garcia) 30 ml PO Q12H PRN PRN Reason: Mild Constipation Albuterol (Duoneb Neb (Prn)) 1 ampul NEB Q4HR NEB PRN PRN Reason: sob Bisacodyl (Dulcolax Supp) 10 mg RECTAL DAILY PRN PRN Reason: SEVERE CONSITIPATION Clonidine HCl (Catapres) 0.1 mg PO UNSCH PRN PRN Reason: SEE LABEL COMMENTS Dextrose (D50w Vial) 50 ml IV.PUSH UNSCH PRN PRN Reason: PER HYPOGLYCEMIA PROTOCOL Diphenhydramine HCl (Benadryl) 25 mg PO UNSCH PRN PRN Reason: SEE LABEL COMMENTS Doxepin HCl (Sinequan) 25 mg PO DAILY [facility] Last Admin: 07/23/18 08:55 Dose: 25 mg Gelatin (Gelfoam 12 Mm/7 Mm Topical) 1 foam TOPICAL PRN PRN PRN Reason: help stop bleeding from site Gentamicin Sulfate (Gentamicin Inj) 20 mg OTHER WITH DIALYSIS PRN PRN Reason: Dwell Gentamycin Lock Last Admin: 07/22/18 13:54 Dose: 20 mg Glucagon (Glucagon Inj) 1 mg OTHER PRN PRN PRN Reason: for Hypoglycemia Protocol Heparin Sodium (Porcine) (Heparin Inj) 8,000 units OTHER WITH DIALYSIS PRN PRN Reason: for machine prime Heparin Sodium (Porcine) (Heparin Inj) 1,000 units OTHER WITH DIALYSIS PRN PRN Reason: Dwell Heparin to Fill Catheter Last Admin: 07/22/18 13:54 Dose: 1,000 units Albumin Human (Flexbumin 25% Inj) 100 mls @ 60 mls/hr IV.SIG WITH DIALYSIS PRN PRN Reason: hypotension / volume replace Last Infusion: 07/22/18 16:29 Dose: Infused Sodium Chloride (Ns Inj) 1,000 mls @ 0 mls/hr OTHER .Q0M PRN PRN Reason: for prime and rinse back Sodium Chloride (Ns Inj) 1,000 mls @ 200 mls/hr OTHER .Q5H PRN PRN Reason: for dialyzer flush PRN Sodium Chloride (Ns Inj) 1,000 mls @ 0 mls/hr IV.CONT .Q0M PRN PRN Reason: hypotension / volume replace Insulin Aspart (Novolog Insulin Correctional Sugar Inj) 0 unit SQ ACHS [facility]; Protocol Last Admin: 07/23/18 08:59 Dose: Not Given Lactulose (Lactulose Liq) 30 ml PO DAILY PRN PRN Reason: SEVERE CONSITIPATION Mannitol (Mannitol Inj) 12.5 gm IV.PUSH UNSCH PRN PRN Reason: hypotension / volume replace Nitroglycerin (Nitrostat Sl) 0.4 mg SL Q5M PRN PRN Reason: CHEST PAIN Ondansetron HCl (Zofran Inj) 4 mg IV.PUSH UNSCH PRN PRN Reason: NAUSEA OR VOMITING Senna/Docusate Sodium (Denise-Colace) 1 tab PO BID [facility] Last Admin: 07/23/18 08:55 Dose: 1 tab Sennosides (Senokot) 17.2 mg PO Q12H PRN PRN Reason: Moderate Constipation Sodium Chloride (Ns Flush) 5 ml IV.FLUSH PRN PRN PRN Reason: flush each lumen during HD Tamsulosin HCl (Flomax) 0.4 mg PO DAILY [facility] Last Admin: 07/23/18 08:55 Dose: 0.4 mg Allergies Allergy/AdvReac Type Severity Reaction Status Date / Time No Known Allergies Allergy Unverified 07/21/18 11:29 Advance Directives Health Care Surrogate Name and Number: Verbal designation of niece, Nolvia Rogers, as the healthcare surrogate de Today's verbally stated goals: Patient has been having difficulty accepting his diagnosis of end-stage renal disease requiring dialysis. In conversations with the patient, he tells me that he will consent dialysis if another kidney doctor tells him it is necessary. Physical Exam Vital Signs: Vital Signs - 24 hr 07/22/18 16:00 07/22/18 19:52 07/22/18 23:52 Temperature 101.3 F H 100.3 F H 99.4 F Pulse Rate 114 H 116 H 85 Respiratory Rate 16 18 Blood Pressure 115/57 L 100/56 L 142/64 H Pulse Oximetry 94 L 94 L 99 07/23/18 03:48 07/23/18 08:00 Temperature 99.7 F H 99.3 F Pulse Rate 91 H 88 Respiratory Rate 19 20 Blood Pressure 135/65 98/53 L Pulse Oximetry 95 98 I&O: Intake & Output 07/21/18 07/22/18 07/23/18 07/24/18 06:59 06:59 06:59 06:59 Intake Total 940 / 940 Output Total 1500 / 1500 Balance -560 / -560 Weight 55.792 kg Physical Exam: CONSTITUTIONAL/GENERAL: This is a frail, cachectic appearing elderly male patient in no acute distress TUBES/LINES/DRAINS: Right chest permacath SKIN: No jaundice, rashes, or lesions. Ecchymoses on upper extremities. No wounds seen anteriorly. Skin temperature appropriate. Not diaphoretic. HEAD: Atraumatic. Normocephalic. EYES: Pupils equal and round and reactive. Extraocular motions intact. No scleral icterus. No injection or drainage. Fundi not examined. ENT: Hearing grossly normal. Nose without bleeding or purulent drainage. Oral mucosa moist. NECK: Trachea midline. Supple, nontender. No palpable thyroid enlargement or nodularity. CARDIOVASCULAR: Regular rate and rhythm without murmurs, gallops, or rubs. No JVD. Peripheral pulses symmetric. RESPIRATORY/CHEST: Symmetric, unlabored respirations. Clear to auscultation. Breath sounds diminished at bases bilaterally. No accessory muscle use GASTROINTESTINAL: Abdomen soft, non-tender, nondistended. No guarding. Bowel sounds present. GENITOURINARY: Without palpable bladder distension. MUSCULOSKELETAL: Extremities without clubbing, cyanosis, or edema. LYMPHATICS: No palpable cervical or supraclavicular adenopathy. NEUROLOGICAL: Awake and alert. Lethargic. Answers questions; follows commands. Able to make needs known. PSYCHIATRIC: No obvious anxiety/depression. No apparent hallucinations or other psychotic thought process. Diagnostic Tests Laboratory: Laboratory Results - last 72 hr 07/21/18 07/21/18 07/21/18 11:40 11:40 11:40 WBC 7.6 RBC 2.56 L Hgb 8.1 L Hct 24.5 L MCV 95.7 MCH 31.7 MCHC 33.1 RDW 19.5 H Plt Count 223 MPV 6.8 L Neut % (Auto) 68.7 Lymph % (Auto) 12.4 Aurora % (Auto) 12.2 H Eos % (Auto) 5.7 H Baso % (Auto) 1.0 Neut # (Auto) 5.2 Lymph # (Auto) 0.9 L Aurora # (Auto) 0.9 Eos # (Auto) 0.4 Baso # (Auto) 0.1 WBC Differential . Differential Comment Auto diff final PT 10.2 INR 1.0 APTT 21.7 L Sodium 143 Potassium 5.1 Chloride 107 Carbon Dioxide 27.8 Anion Gap 8 BUN 27 H Creatinine 7.57 H Estimated GFR 8 L POC Glucose Random Glucose 96 Calcium 8.1 L Magnesium 3.9 H Total Bilirubin 0.4 AST 20 ALT 19 Alkaline Phosphatase 49 Troponin I Total Protein 6.4 Albumin 2.7 L Vitamin B12 TSH 07/21/18 07/21/18 07/21/18 11:40 20:00 21:59 WBC RBC Hgb Hct MCV MCH MCHC RDW Plt Count MPV Neut % (Auto) Lymph % (Auto) Aurora % (Auto) Eos % (Auto) Baso % (Auto) Neut # (Auto) Lymph # (Auto) Aurora # (Auto) Eos # (Auto) Baso # (Auto) WBC Differential Differential Comment PT INR APTT Sodium 141 Potassium 4.9 Chloride 105 Carbon Dioxide 28.5 Anion Gap 8 BUN 31 H Creatinine 8.64 H Estimated GFR 7 L POC Glucose 162 H Random Glucose 141 H Calcium 8.5 Magnesium Total Bilirubin 0.4 AST 20 ALT 19 Alkaline Phosphatase 54 Troponin I Less than 0.02 L Total Protein 6.6 Albumin 2.9 L Vitamin B12 TSH 07/21/18 07/22/18 07/22/18 23:06 07:33 11:35 WBC RBC Hgb Hct MCV MCH MCHC RDW Plt Count MPV Neut % (Auto) Lymph % (Auto) Aurora % (Auto) Eos % (Auto) Baso % (Auto) Neut # (Auto) Lymph # (Auto) Aurora # (Auto) Eos # (Auto) Baso # (Auto) WBC Differential Differential Comment PT INR APTT Sodium Potassium Chloride Carbon Dioxide Anion Gap BUN Creatinine Estimated GFR POC Glucose 122 H 89 Random Glucose Calcium Magnesium Total Bilirubin AST ALT Alkaline Phosphatase Troponin I Total Protein Albumin Vitamin B12 1091 H TSH 0.305 L 07/22/18 07/22/18 07/22/18 11:44 15:39 17:32 WBC RBC Hgb Hct MCV MCH MCHC RDW Plt Count MPV Neut % (Auto) Lymph % (Auto) Aurora % (Auto) Eos % (Auto) Baso % (Auto) Neut # (Auto) Lymph # (Auto) [place] # (Auto) Eos # (Auto) Baso # (Auto) WBC Differential Differential Comment PT INR APTT Sodium Potassium Chloride Carbon Dioxide Anion Gap BUN Creatinine Estimated GFR POC Glucose 106 136 H 105 Random Glucose Calcium Magnesium Total Bilirubin AST ALT Alkaline Phosphatase Troponin I Total Protein Albumin Vitamin B12 TSH 07/22/18 07/23/18 20:18 08:10 WBC RBC Hgb Hct MCV MCH MCHC RDW Plt Count MPV Neut % (Auto) Lymph % (Auto) Aurora % (Auto) Eos % (Auto) Baso % (Auto) Neut # (Auto) Lymph # (Auto) [place] # (Auto) Eos # (Auto) Baso # (Auto) WBC Differential Differential Comment PT INR APTT Sodium Potassium Chloride Carbon Dioxide Anion Gap BUN Creatinine Estimated GFR POC Glucose 124 H 89 Random Glucose Calcium Magnesium Total Bilirubin AST ALT Alkaline Phosphatase Troponin I Total Protein Albumin Vitamin B12 TSH Result Diagrams: 07/21/18 11:40 07/21/18 20:00 Microbiology: Microbiology 07/22/18 19:25 Blood - Peripheral Aerobic Blood Culture - Preliminary No growth in 1 day 07/22/18 19:25 Blood - Peripheral Anaerobic Blood Culture - Preliminary No growth in 1 day Imaging: Cervical Spine CT 07/21/18 11:36 CONCLUSION: 1. No evidence of acute fracture, traumatic listhesis or significant soft tissue abnormality. 2. Severe degenerative disc disease with collapse of the disc and partial ankylosis at C3-4, C4-5 and C5-6. 3. Severe degenerative disc disease at C6-7 with foraminal encroachment. 4. Severe atlantoaxial degenerative disease 5. Reversal of normal cervical lordosis and mild degenerative anterolisthesis at C3-4. Chest X-Ray 07/21/18 11:36 CONCLUSION: Minimal improvement in consolidative changes right base. Head CT 07/21/18 11:36 CONCLUSION: 1. Negative for acute process . Patient/Family Conference Present at Family Conference: Met with patient at bedside Family Conference Location: Bedside Issues Discussed: * Palliative care role, purpose, approach * Additional medical, psychosocial, and spiritual history * Patients general health, functional status, and cognitive changes in the months leading up to the current hospitalization * Likely scenarios comparing ongoing aggressive care with a transition to comfort measures only * Questions answered to the best of my ability * Palliative care contact information provided Assessment and Plan - Disease Oriented Problem List (1) Acute kidney failure (2) Hydronephrosis (3) Acute exacerbation of COPD with asthma Pertinent Non-Medical Issues: Psychosocial: Patient was born and raised in [place]. He is not . He states he has 7 adult children. 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 Spiritual: Shinto best. Legal: Verbally designated his niece (Gabriela) as the HCS; conversation witness. Will f/u today. Need signature and contact information Ethical issues impacting care: No known ethical issues impacting care. Important Contacts: Nolvia Rogers, niece: THIS IS NO LONGER THE CORRECT NUMBER - [phone] Julee Beavers, sister: [phone] Prognosis: Patient is a frail, elderly male patient who appears to be significantly debilitated. He has a complex medical history including end-stage renal and was recently started on dialysis. Patient has not been accepting of HD. Given patient advanced age, multiple co-morbidities and poor functioning, he is at risk for decline/complications. Patient will from terminal renal failure without hemodialysis. Code Status: Full Code Plan: * FULL CODE * Decision-making: Patient had insight toward his medical conditions on exam; he verbalized understanding that he would without hemodialysis. He verbal designation of Nolvia vasquez, as the healthcare surrogate decision maker. Conversation witnessed by myself, Marissa (MYNOR) and palliative care R D INTERN ( Lety Mark). Patient refused to sign document, will readdress tomorrow. * Incorrect contact information for niNolvia rebolledo. Attempted to call his sister, Julee Beavers, but no one answered and was unable to leave a message. Discussed with patient's nurse; will attempt to obtain correct contact information from patient or from family if they should visit * In conversation with the patient, he tells me that he will consent dialysis if another kidney doctor tells him it is necessary. Dr. Granados is known to the patient; consulted nephrology for a second opinion with a second physician. * Symptom management: = Pain: Patient c/o chronic pain in his neck that can be severe at time as well as pain/numbness in his legs. Patient was on gabapentin and lyrica, both are currently being held. CT cervical spine showed severe degenerative disc disease; no evidence of acute fractures, traumatic listhesis or significant soft tissue abnormality. Acetaminophen/codeine is available every 4 hours as needed for pain; patient has had 2 doses in the past 24 hours = Debility: Patient presented to ED with complaints of generalized weakness with recent associated falls. He is frail and his rib cage is easily visible. Physical therapy was consulted. Patient may require placement at discharge. * Palliative care will follow the patient throughout his hospitalization to establish trust, assist with symptom management and clarification of medical treatment goals. Appreciation Thank you for the opportunity to participate in the care of Hubert Lezama Santi. Attestation Attestation: To help prompt me to consider important information that might be impacting today's encounter and assessment, information from prior notes written by myself or my colleagues may have been "brought forward" into today's note. My signature on this note, however, is an attestation that I personally performed the exam, history, and/or decision-making noted today, and, unless otherwise indicated, the interactions with patient, family, and staff as well as the review of records all occurred today. I also attest that the listed assessment and stated plan reflect my best clinical judgment today based on the combination of historical information, prior notes, and today's exam/ interactions. When time spent is documented, it refers only to time spent today by the signer, or if indicated, combined time spent today by collaborating physician/nurse practitioner.
[2018-07-23] MEDS ORDERED: Sodium Chlor 0.9% Inj 500 ML IV.SIG ONE (13:00)
--- NOTE | 2018-07-23 16:30 | P.CONNP ---
<Marcy Gardner - Last Filed: 07/23/18 16:08> History of Present Illness Service: Nephrology Consult date: 07/23/18 Requesting Physician: Jocy Anguiano Reason for Consult: End stage renal disease on hemodialysis second opinion Primary Care Provider: UNKNOWN Family Provider: Nishant Johnson DO History of Present Illness: Patient is an 82-year-old -Surinamese male with a past medical history of hypertension, anemia, BPH with urinary obstruction, chronic obstructive pulmonary disease O2 dependent, and chronic kidney disease which has most likely progressed to end stage renal disease. Patient presented to emergency department for near syncope event. He is a patient of Dr. Granados and Dr. Green was consulted per patient request for second opinion. Per Dr. Granados notes he has not been accepting the fact that he is dialysis dependent refusing to have an AV dialysis access created. He currently has right IJ permacath. He reports chronic shortness of breath, denies chest pain, nausea, vomiting, or loose stools. 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 - Medical History Medical History: Medical History (Last Updated 07/23/18 @ 12:23 by TEMO Preston) BPH loc w urin obs/LUTS (Acute) COPD (chronic obstructive pulmonary disease) (Acute) Hypertension (Acute) Degenerative disc disease ESRD (end stage renal disease) on dialysis GERD (gastroesophageal reflux disease) History of alcohol dependence History of squamous cell carcinoma Anemia - Surgical History Surgical History: Surgical History (Last Reviewed 07/22/18 @ 08:52 by Nidhi Constantino) H/O hernia repair - Family History Family History: Family History (Last Updated 07/23/18 @ 12:24 by TEMO Preston) Other Family history of cancer - Tobacco History Second Hand Smoke Exposure: No Tobacco Use In Past 30 Days: No Smoking Status: Former smoker (55-vhmo-eemu smoking history) Tobacco Type: Cigarettes Packs Per Day: 2 Cigarettes Per Day: 40 Years Smoked: 40 years: 80 - Alcohol History How Often Do You Have a Drink Containing Alcohol: Never (History of alcohol dependence) - Substance Use History Substance History: No History of Abuse - Travel History Recent Travel in the [place] Within the Last 8 Weeks: No Recent Travel Out of the Country Within the Last 8 Weeks: No - Immunization History Tetanus Immunization: <5 Years Hx Influenza Vaccine This Season: Yes Medications and Allergies Allergies Allergy/AdvReac Type Severity Reaction Status Date / Time No Known Allergies Allergy Unverified 07/21/18 11:29 Active Medications: Active Medications Acetaminophen/Codeine Phosphate (Tylenol W/Cod #3) 1 tab PO Q4H PRN PRN Reason: PAIN SCALE 1 TO 10 Last Admin: 07/23/18 08:55 Dose: 1 tab Al Hydroxide/Mg Hydroxide (Milk Of Magnmontana Liq) 30 ml PO Q12H PRN PRN Reason: Mild Constipation Albuterol (Duoneb Neb (Prn)) 1 ampul NEB Q4HR NEB PRN PRN Reason: sob Bisacodyl (Dulcolax Supp) 10 mg RECTAL DAILY PRN PRN Reason: SEVERE CONSITIPATION Clonidine HCl (Catapres) 0.1 mg PO UNSCH PRN PRN Reason: SEE LABEL COMMENTS Dextrose (D50w Vial) 50 ml IV.PUSH UNSCH PRN PRN Reason: PER HYPOGLYCEMIA PROTOCOL Diphenhydramine HCl (Benadryl) 25 mg PO UNSCH PRN PRN Reason: SEE LABEL COMMENTS Doxepin HCl (Sinequan) 25 mg PO DAILY [facility] Last Admin: 07/23/18 08:55 Dose: 25 mg Gelatin (Gelfoam 12 Mm/7 Mm Topical) 1 foam TOPICAL PRN PRN PRN Reason: help stop bleeding from site Gentamicin Sulfate (Gentamicin Inj) 20 mg OTHER WITH DIALYSIS PRN PRN Reason: Dwell Gentamycin Lock Last Admin: 07/22/18 13:54 Dose: 20 mg Glucagon (Glucagon Inj) 1 mg OTHER PRN PRN PRN Reason: for Hypoglycemia Protocol Heparin Sodium (Porcine) (Heparin Inj) 8,000 units OTHER WITH DIALYSIS PRN PRN Reason: for machine prime Heparin Sodium (Porcine) (Heparin Inj) 1,000 units OTHER WITH DIALYSIS PRN PRN Reason: Dwell Heparin to Fill Catheter Last Admin: 07/22/18 13:54 Dose: 1,000 units Albumin Human (Flexbumin 25% Inj) 100 mls @ 60 mls/hr IV.SIG WITH DIALYSIS PRN PRN Reason: hypotension / volume replace Last Infusion: 07/22/18 16:29 Dose: Infused Sodium Chloride (Ns Inj) 1,000 mls @ 0 mls/hr OTHER .Q0M PRN PRN Reason: for prime and rinse back Sodium Chloride (Ns Inj) 1,000 mls @ 200 mls/hr OTHER .Q5H PRN PRN Reason: for dialyzer flush PRN Sodium Chloride (Ns Inj) 1,000 mls @ 0 mls/hr IV.CONT .Q0M PRN PRN Reason: hypotension / volume replace Insulin Aspart (Novolog Insulin Correctional Sugar Inj) 0 unit SQ ACHS [facility]; Protocol Last Admin: 07/23/18 12:59 Dose: Not Given Lactulose (Lactulose Liq) 30 ml PO DAILY PRN PRN Reason: SEVERE CONSITIPATION Mannitol (Mannitol Inj) 12.5 gm IV.PUSH UNSCH PRN PRN Reason: hypotension / volume replace Nitroglycerin (Nitrostat Sl) 0.4 mg SL Q5M PRN PRN Reason: CHEST PAIN Ondansetron HCl (Zofran Inj) 4 mg IV.PUSH UNSCH PRN PRN Reason: NAUSEA OR VOMITING Senna/Docusate Sodium (Denise-Colace) 1 tab PO BID [facility] Last Admin: 07/23/18 08:55 Dose: 1 tab Sennosides (Senokot) 17.2 mg PO Q12H PRN PRN Reason: Moderate Constipation Sodium Chloride (Ns Flush) 5 ml IV.FLUSH PRN PRN PRN Reason: flush each lumen during HD Tamsulosin HCl (Flomax) 0.4 mg PO DAILY [facility] Last Admin: 07/23/18 08:55 Dose: 0.4 mg Exam Vital signs: Vital Signs 07/22/18 19:52 07/22/18 23:52 07/23/18 03:48 Temperature 100.3 F H 99.4 F 99.7 F H Pulse Rate 116 H 85 91 H Respiratory Rate 18 19 Blood Pressure 100/56 L 142/64 H 135/65 Pulse Oximetry 94 L 99 95 07/23/18 08:00 07/23/18 11:03 07/23/18 11:58 Temperature 99.3 F 98.7 F 98.6 F Pulse Rate 88 80 76 Respiratory Rate 20 12 12 Blood Pressure 98/53 L 79/43 L 92/51 L Pulse Oximetry 97 98 99 07/23/18 15:29 Temperature 99.0 F Pulse Rate 81 Respiratory Rate 16 Blood Pressure 97/53 L Pulse Oximetry 97 Intake & Output 07/22/18 07/23/18 07/23/18 18:59 06:59 18:59 Intake Total 940 / 940 500 / 500 Output Total 1500 / 1500 Balance -560 / -560 500 / 500 Intake: IV 100 / 100 500 / 500 Flexbumin 25% Inj 100 ML @ 60 100 / 100 mls/hr IV.SIG WITH DIALYSIS PRN Rx#:[id number] NS Inj 500 ML @ As Directed IV. 500 / 500 SIG BOLUS ONE Rx#:[id number] Oral 840 / 840 Output: Hemodialysis Amount 1500 / 1500 Narrative: GENERAL: Alert and oriented. SKIN: Warm and dry. Left IJ permacath HEAD: Normocephalic. EYES: No scleral icterus. No injection or drainage. NECK: Supple, trachea midline. No JVD or lymphadenopathy. CARDIOVASCULAR: Regular rate and rhythm without murmurs, gallops, or rubs. RESPIRATORY: Breath sounds equal bilaterally. No accessory muscle use. GASTROINTESTINAL: Abdomen soft, non-tender, nondistended. MUSCULOSKELETAL: No cyanosis, or edema. BACK: Nontender without obvious deformity. No CVA tenderness. Results - Lab Results 07/21/18 11:40 07/21/18 20:00 Most recent lab results Calcium 8.5 mg/dL (8.5-10.1) 07/21/18 20:00 Magnesium 3.9 mg/dL (1.5-2.5) H 07/21/18 11:40 Assessment and Plan - Assessment (1) End stage renal disease Code(s): N18.6 - End stage renal disease Status: Acute Plan: He is a patient of Dr. Granados and Dr. Green was consulted per patient request for second opinion. Per Dr. Granados notes he has not been accepting the fact that he is dialysis dependent refusing to have an AV dialysis access created. He currently has right IJ permacath. Patient seen with Dr. Green. Dr. Green discussed at length that he is most likely end stage renal disease and that at this point would need to continue with hemodialysis as his creatinine is elevated and he has very minimal urinary output. He has agreed to proceed with hemodialysis. Discussed also that he needs to obtain AV fistula for dialysis which has also has agreed to proceed with. Mapping has been ordered and Dr. Leal has been consulted. Plan Continue with hemodialysis on Saturday, , and Saturday Avoid gadolinium and IVF administration. Case management is also consulted to arrange outpatient hemodialysis at [facility] per patient request. Dr. Leal consulted for AVF access, and mapping has been ordered. Hemodialysis tomorrow (2) Anemia Code(s): D64.9 - Anemia, unspecified Status: Acute Onset Date: ~05/22/18 Plan: HGB stable Epogen with dialysis. <Juan Green - Last Filed: 07/23/18 23:07> History of Present Illness Primary Care Provider: UNKNOWN Family Provider: Nishant Johnson DO [facility] - Medical History Medical History: Medical History (Last Updated 07/23/18 @ 12:23 by TEMO Preston) BPH loc w urin obs/LUTS (Acute) COPD (chronic obstructive pulmonary disease) (Acute) Hypertension (Acute) Degenerative disc disease ESRD (end stage renal disease) on dialysis GERD (gastroesophageal reflux disease) History of alcohol dependence History of squamous cell carcinoma Anemia - Surgical History Surgical History: Surgical History (Last Reviewed 07/22/18 @ 08:52 by Nidhi Constantino) H/O hernia repair - Family History Family History: Family History (Last Updated 07/23/18 @ 12:24 by TEMO Preston) Other Family history of cancer Medications and Allergies Active Medications: Active Medications Acetaminophen/Codeine Phosphate (Tylenol W/Cod #3) 1 tab PO Q4H PRN PRN Reason: PAIN SCALE 1 TO 10 Last Admin: 07/23/18 08:55 Dose: 1 tab Al Hydroxide/Mg Hydroxide (Milk Of Luke Garcia) 30 ml PO Q12H PRN PRN Reason: Mild Constipation Albuterol (Duoneb Neb (Prn)) 1 ampul NEB Q4HR NEB PRN PRN Reason: sob Bisacodyl (Dulcolax Supp) 10 mg RECTAL DAILY PRN PRN Reason: SEVERE CONSITIPATION Clonidine HCl (Catapres) 0.1 mg PO UNSCH PRN PRN Reason: SEE LABEL COMMENTS Dextrose (D50w Vial) 50 ml IV.PUSH UNSCH PRN PRN Reason: PER HYPOGLYCEMIA PROTOCOL Diphenhydramine HCl (Benadryl) 25 mg PO UNSCH PRN PRN Reason: SEE LABEL COMMENTS Doxepin HCl (Sinequan) 25 mg PO DAILY [facility] Last Admin: 07/23/18 08:55 Dose: 25 mg Gelatin (Gelfoam 12 Mm/7 Mm Topical) 1 foam TOPICAL PRN PRN PRN Reason: help stop bleeding from site Gentamicin Sulfate (Gentamicin Inj) 20 mg OTHER WITH DIALYSIS PRN PRN Reason: Dwell Gentamycin Lock Last Admin: 07/22/18 13:54 Dose: 20 mg Glucagon (Glucagon Inj) 1 mg OTHER PRN PRN PRN Reason: for Hypoglycemia Protocol Heparin Sodium (Porcine) (Heparin Inj) 8,000 units OTHER WITH DIALYSIS PRN PRN Reason: for machine prime Heparin Sodium (Porcine) (Heparin Inj) 1,000 units OTHER WITH DIALYSIS PRN PRN Reason: Dwell Heparin to Fill Catheter Last Admin: 07/22/18 13:54 Dose: 1,000 units Albumin Human (Flexbumin 25% Inj) 100 mls @ 60 mls/hr IV.SIG WITH DIALYSIS PRN PRN Reason: hypotension / volume replace Last Infusion: 07/22/18 16:29 Dose: Infused Sodium Chloride (Ns Inj) 1,000 mls @ 0 mls/hr OTHER .Q0M PRN PRN Reason: for prime and rinse back Sodium Chloride (Ns Inj) 1,000 mls @ 200 mls/hr OTHER .Q5H PRN PRN Reason: for dialyzer flush PRN Sodium Chloride (Ns Inj) 1,000 mls @ 0 mls/hr IV.CONT .Q0M PRN PRN Reason: hypotension / volume replace Insulin Aspart (Novolog Insulin Correctional Sugar Inj) 0 unit SQ ACHS [facility]; Protocol Last Admin: 07/23/18 21:13 Dose: Not Given Lactulose (Lactulose Liq) 30 ml PO DAILY PRN PRN Reason: SEVERE CONSITIPATION Mannitol (Mannitol Inj) 12.5 gm IV.PUSH UNSCH PRN PRN Reason: hypotension / volume replace Nitroglycerin (Nitrostat Sl) 0.4 mg SL Q5M PRN PRN Reason: CHEST PAIN Ondansetron HCl (Zofran Inj) 4 mg IV.PUSH UNSCH PRN PRN Reason: NAUSEA OR VOMITING Senna/Docusate Sodium (Denise-Colace) 1 tab PO BID [facility] Last Admin: 07/23/18 21:13 Dose: 1 tab Sennosides (Senokot) 17.2 mg PO Q12H PRN PRN Reason: Moderate Constipation Sodium Chloride (Ns Flush) 5 ml IV.FLUSH PRN PRN PRN Reason: flush each lumen during HD Tamsulosin HCl (Flomax) 0.4 mg PO DAILY [facility] Last Admin: 07/23/18 08:55 Dose: 0.4 mg Exam Vital signs: Vital Signs 07/22/18 23:52 07/23/18 03:48 07/23/18 08:00 Temperature 99.4 F 99.7 F H 99.3 F Pulse Rate 85 91 H 88 Respiratory Rate 18 19 20 Blood Pressure 142/64 H 135/65 98/53 L Pulse Oximetry 99 95 97 07/23/18 11:03 07/23/18 11:58 07/23/18 15:29 Temperature 98.7 F 98.6 F 99.0 F Pulse Rate 80 76 81 Respiratory Rate 12 12 16 Blood Pressure 79/43 L 92/51 L 97/53 L Pulse Oximetry 98 99 97 07/23/18 17:22 07/23/18 20:00 Temperature 98.4 F Pulse Rate 80 103 H Respiratory Rate 16 Blood Pressure 135/62 124/60 Pulse Oximetry 98 Intake & Output 07/23/18 07/23/18 07/24/18 06:59 18:59 06:59 Intake Total 1220 / 1220 Output Total 0 / 0 Balance 1220 / 1220 Intake: IV 500 / 500 NS Inj 500 ML @ As Directed IV. 500 / 500 SIG BOLUS ONE Rx#:[id number] Oral 720 / 720 Output: Urine 0 / 0 Results - Lab Results 07/21/18 11:40 07/21/18 20:00 Most recent lab results Calcium 8.5 mg/dL (8.5-10.1) 07/21/18 20:00 Magnesium 3.9 mg/dL (1.5-2.5) H 07/21/18 11:40 Assessment and Plan - Assessment (1) End stage renal disease Code(s): N18.6 - End stage renal disease Status: Acute Plan: Patient seen and examined, agree with above. Patient has most likely End Stage renal disease. D/W the patient about continue Dialysis, 3 times a week. Patient agreed to continue Dialysis and getting AVF. He want to go for HD at other place, will get AVF and arrange for out patient HD. (2) Anemia Code(s): D64.9 - Anemia, unspecified Status: Acute Onset Date: ~05/22/18 <Marcy Gardner - Last Filed: 07/23/18 16:08> (2) Anemia Qualifiers: Anemia type: due to chronic kidney disease Chronic kidney disease stage: stage 5, not on chronic dialysis Qualified Code(s): N18.5 - Chronic kidney disease, stage 5; D63.1 - Anemia in chronic kidney disease <Filemon Green Q - Last Filed: 07/23/18 23:07> (2) Anemia Qualifiers: Anemia type: due to chronic kidney disease Chronic kidney disease stage: stage 5, not on chronic dialysis Qualified Code(s): N18.5 - Chronic kidney disease, stage 5; D63.1 - Anemia in chronic kidney disease
--- NOTE | 2018-07-23 19:19 | P.CONID ---
History of Present Illness Service: ID Consult date: 07/23/18 Requesting Physician: Jocy Anguiano Reason for Consult: FUO Primary Care Provider: UNKNOWN Family Provider: Nishant Johnson DO History of Present Illness: Pt is a poor historian Apparently presented after near syncopal episode History mainly from the chart and RN 82 yo male with multiple med problems including ESRD, on HD presented with weakness, fever He missed HD His fever was up to 101.7 3, n leukocytosis He is getting HD thru Permacath in [place], apparently he was refusing AV fistula prior Pt endorses productive cough with dark sputum He is anuric His BP is on a low side initially but responded to fluids. 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 - Medical History Medical History: Medical History (Last Reviewed 07/24/18 @ 06:12 by Laureen Mariee MD) BPH loc w urin obs/LUTS (Acute) COPD (chronic obstructive pulmonary disease) (Acute) Hypertension (Acute) Degenerative disc disease ESRD (end stage renal disease) on dialysis GERD (gastroesophageal reflux disease) History of alcohol dependence History of squamous cell carcinoma Anemia - Surgical History Surgical History: Surgical History (Last Reviewed 07/24/18 @ 06:12 by Laureen Mariee MD) H/O hernia repair - Family History Family History: Family History (Last Reviewed 07/24/18 @ 06:12 by Laureen Mariee MD) Other Family history of cancer - Social History I have reviewed the patient's Social History: Yes - Tobacco History Second Hand Smoke Exposure: No Tobacco Use In Past 30 Days: No Smoking Status: Former smoker (50-yfbb-fhhb smoking history) Tobacco Type: Cigarettes Packs Per Day: 2 Cigarettes Per Day: 40 Years Smoked: 40 years: 80 - Alcohol History How Often Do You Have a Drink Containing Alcohol: Never (History of alcohol dependence) - Substance Use History Substance History: No History of Abuse - Travel History Recent Travel in the [place] Within the Last 8 Weeks: No Recent Travel Out of the Country Within the Last 8 Weeks: No - Immunization History Tetanus Immunization: <5 Years Hx Influenza Vaccine This Season: Yes Medications and Allergies Active Medications: Active Medications Acetaminophen/Codeine Phosphate (Tylenol W/Cod #3) 1 tab PO Q4H PRN PRN Reason: PAIN SCALE 1 TO 10 Last Admin: 07/23/18 08:55 Dose: 1 tab Al Hydroxide/Mg Hydroxide (Milk Of Magnmontana Liq) 30 ml PO Q12H PRN PRN Reason: Mild Constipation Albuterol (Duoneb Neb (Prn)) 1 ampul NEB Q4HR NEB PRN PRN Reason: sob Bisacodyl (Dulcolax Supp) 10 mg RECTAL DAILY PRN PRN Reason: SEVERE CONSITIPATION Clonidine HCl (Catapres) 0.1 mg PO UNSCH PRN PRN Reason: SEE LABEL COMMENTS Dextrose (D50w Vial) 50 ml IV.PUSH UNSCH PRN PRN Reason: PER HYPOGLYCEMIA PROTOCOL Diphenhydramine HCl (Benadryl) 25 mg PO UNSCH PRN PRN Reason: SEE LABEL COMMENTS Doxepin HCl (Sinequan) 25 mg PO DAILY [facility] Last Admin: 07/23/18 08:55 Dose: 25 mg Gelatin (Gelfoam 12 Mm/7 Mm Topical) 1 foam TOPICAL PRN PRN PRN Reason: help stop bleeding from site Gentamicin Sulfate (Gentamicin Inj) 20 mg OTHER WITH DIALYSIS PRN PRN Reason: Dwell Gentamycin Lock Last Admin: 07/22/18 13:54 Dose: 20 mg Glucagon (Glucagon Inj) 1 mg OTHER PRN PRN PRN Reason: for Hypoglycemia Protocol Heparin Sodium (Porcine) (Heparin Inj) 8,000 units OTHER WITH DIALYSIS PRN PRN Reason: for machine prime Heparin Sodium (Porcine) (Heparin Inj) 1,000 units OTHER WITH DIALYSIS PRN PRN Reason: Dwell Heparin to Fill Catheter Last Admin: 07/22/18 13:54 Dose: 1,000 units Albumin Human (Flexbumin 25% Inj) 100 mls @ 60 mls/hr IV.SIG WITH DIALYSIS PRN PRN Reason: hypotension / volume replace Last Infusion: 07/22/18 16:29 Dose: Infused Sodium Chloride (Ns Inj) 1,000 mls @ 0 mls/hr OTHER .Q0M PRN PRN Reason: for prime and rinse back Sodium Chloride (Ns Inj) 1,000 mls @ 200 mls/hr OTHER .Q5H PRN PRN Reason: for dialyzer flush PRN Sodium Chloride (Ns Inj) 1,000 mls @ 0 mls/hr IV.CONT .Q0M PRN PRN Reason: hypotension / volume replace Insulin Aspart (Novolog Insulin Correctional Sugar Inj) 0 unit SQ ACHS [facility]; Protocol Last Admin: 07/23/18 17:23 Dose: Not Given Lactulose (Lactulose Liq) 30 ml PO DAILY PRN PRN Reason: SEVERE CONSITIPATION Mannitol (Mannitol Inj) 12.5 gm IV.PUSH UNSCH PRN PRN Reason: hypotension / volume replace Nitroglycerin (Nitrostat Sl) 0.4 mg SL Q5M PRN PRN Reason: CHEST PAIN Ondansetron HCl (Zofran Inj) 4 mg IV.PUSH UNSCH PRN PRN Reason: NAUSEA OR VOMITING Senna/Docusate Sodium (Denise-Colace) 1 tab PO BID [facility] Last Admin: 07/23/18 08:55 Dose: 1 tab Sennosides (Senokot) 17.2 mg PO Q12H PRN PRN Reason: Moderate Constipation Sodium Chloride (Ns Flush) 5 ml IV.FLUSH PRN PRN PRN Reason: flush each lumen during HD Tamsulosin HCl (Flomax) 0.4 mg PO DAILY [facility] Last Admin: 07/23/18 08:55 Dose: 0.4 mg Allergies Allergy/AdvReac Type Severity Reaction Status Date / Time No Known Allergies Allergy Unverified 07/21/18 11:29 Exam Vital signs: Vital Signs 07/22/18 19:52 07/22/18 23:52 07/23/18 03:48 Temperature 100.3 F H 99.4 F 99.7 F H Pulse Rate 116 H 85 91 H Respiratory Rate 18 19 Blood Pressure 100/56 L 142/64 H 135/65 Pulse Oximetry 94 L 99 95 07/23/18 08:00 07/23/18 11:03 07/23/18 11:58 Temperature 99.3 F 98.7 F 98.6 F Pulse Rate 88 80 76 Respiratory Rate 20 12 12 Blood Pressure 98/53 L 79/43 L 92/51 L Pulse Oximetry 97 98 99 07/23/18 15:29 07/23/18 17:22 Temperature 99.0 F Pulse Rate 81 80 Respiratory Rate 16 Blood Pressure 97/53 L 135/62 Pulse Oximetry 97 Intake & Output 07/23/18 07/23/18 07/24/18 06:59 18:59 06:59 Intake Total 1220 / 1220 Output Total 0 / 0 Balance 1220 / 1220 Intake: IV 500 / 500 NS Inj 500 ML @ As Directed IV. 500 / 500 SIG BOLUS ONE Rx#:[id number] Oral 720 / 720 Output: Urine 0 / 0 - Constitutional no acute distress, cachectic - Routine HEENT Exam Head: Present: normocephalic, atraumatic Eye: Present: EOMI, PERRL ENT: Present: mucous membranes moist. Absent: dentition normal (edentulous) - Routine Neck Exam Present: supple, full ROM. Absent: lymphadenopathy - Routine Respiratory Exam Present: CTA bilaterally. Absent: decreased breath sounds, respiratory distress - Routine Cardiovascular Exam Present: RRR, S1, S2. Absent: murmur, gallop, rubs - Routine Abdominal Exam Present: soft, normoactive bowel sounds. Absent: tenderness, distended, organomegaly, mass - Routine Extremities Exam Present: tenderness (to b/l thighs). Absent: cyanosis, clubbing, edema - Routine Skin Exam Present: intact, warm. Absent: rash - Routine Neurological Exam Present: alert, oriented X3 (2-3), CN II-XII intact, moving all extremities, vision grossly intact, hearing grossly intact, normal speech - Routine Psychiatric Exam Present: normal affect, cooperative Results - Labs CBC & Chem 7: 07/21/18 11:40 07/21/18 20:00 Labs: Laboratory Results - last 24 hr 07/22/18 07/23/18 07/23/18 20:18 08:10 12:58 POC Glucose 124 H 89 100 07/23/18 17:15 POC Glucose 86 - Imaging Cervical Spine CT 07/21/18 11:36 CONCLUSION: 1. No evidence of acute fracture, traumatic listhesis or significant soft tissue abnormality. 2. Severe degenerative disc disease with collapse of the disc and partial ankylosis at C3-4, C4-5 and C5-6. 3. Severe degenerative disc disease at C6-7 with foraminal encroachment. 4. Severe atlantoaxial degenerative disease 5. Reversal of normal cervical lordosis and mild degenerative anterolisthesis at C3-4. Chest X-Ray 07/21/18 11:36 CONCLUSION: Minimal improvement in consolidative changes right base. Head CT 07/21/18 11:36 CONCLUSION: 1. Negative for acute process . Upper Extremity Ultrasound 07/23/18 00:00 CONCLUSION: 1. Venous mapping study as described. Venous Doppler Study 07/23/18 00:00 CONCLUSION: 1. Negative exam with no evidence of deep venous thrombosis. Assessment and Plan - Plan Fever HD cath infection? PNA flu negative I reviewed previous CXR, CT - pt has consolisdations present on the R lung start vanco, cefepime, azithro CT chest follow blood clx
--- NOTE | 2018-07-23 19:56 | US ---
EXAM DATE: 07/23/2018 7:54 PM EDT AGE/SEX: 82 years / Male INDICATIONS: Future vascular access for hemodialysis. CLINICAL DATA: This is the patient's initial encounter. Patient reports that signs and symptoms have been present for 1 day and indicates a pain score of 0/10. MEDICAL/SURGICAL HISTORY: . Anemia. Benign prostatic hypertrophy. Chronic obstructive pulmona ry disease. Degenerative disc disease. End stage renal disease on dialysis. Gastroesophageal reflu x disease. Alcohol independence. Squamous cell carcinoma. Hypopharyngeal cancer. Hypertension. . Hernia repair. [place]PAR[place]: [facility] [place], 07/23/2018. . MEASUREMENTS: CEPHALIC: Origin:__2 mm Mid-Arm:__Thrombosed Elbow:__Thrombosed Forearm:__Non-visualized Wrist:__Thrombosed BASILIC: Origin:__2 mm Mid-Arm:__2 mm Elbow:__2 mm ARTERIES: Brachial:__5 mm Ulnar:__2 mm Radial:__3 mm VEINS: Radial:__3 mm Ulnar:__2 mm FINDINGS: The venous system of the upper extremity is patent by color Doppler imaging. Measurements of the arm veins (in mm) are listed above. CONCLUSION: 1. Venous mapping study as described. Electronically signed by: Pelon Hicks MD 07/23/2018 7:55 PM EDT
--- NOTE | 2018-07-23 19:56 | US ---
EXAM DATE: 07/23/2018 7:48 PM EDT AGE/SEX: 82 years / Male INDICATIONS: Future vascular access for hemodialysis. CLINICAL DATA: This is the patient's initial encounter. Patient reports that signs and symptoms have been present for 1 day and indicates a pain score of 0/10. MEDICAL/SURGICAL HISTORY: . Anemia. Benign prostatic hypertrophy. Chronic obstructive pulmona ry disease. Degenerative disc disease. End stage renal disease on dialysis. Gastroesophageal reflu x disease. Alcohol independence. Squamous cell carcinoma. Hypopharyngeal cancer. Hypertension. . Hernia repair. COMPARISON: . FINDINGS: The vessels are compressible and augmentation response is documented. No filling defects a re seen. The flow is phasic with respiration. Other: None. CONCLUSION: 1. Negative exam with no evidence of deep venous thrombosis. Electronically signed by: Pelon Hicks MD 07/23/2018 7:55 PM EDT
[2018-07-24] MEDS ORDERED: Vancomycin Inj 1 GM/200 ML PIGGYBACK IV.SIG ONE (06:14)
[2018-07-24] MEDS ORDERED: Vancomycin Inj 1,000 MG in Sodium Chlor 0.9% Inj 250 ML IV.SIG ONE (07:00)
--- NOTE | 2018-07-24 07:52 | XR ---
EXAM DATE: 07/24/2018 7:25 AM EDT AGE/SEX: 82 years / Male INDICATIONS: Cough, short of breath CLINICAL DATA: This is the patient's subsequent encounter. Patient reports that signs and symptoms h ave been present for 3 days and indicates a pain score of 0/10. MEDICAL/SURGICAL HISTORY: Chronic obstructive pulmonary disease. Hypertension. Renal disease, end stage. . port right chest COMPARISON: [facility], CHEST 1V SINGLE AP, 07/21/2018. . FINDINGS: Right chest dialysis catheter is stable in position. Patchy infiltrate in the right lung is slightly more pronounced than previously. Left lung remains grossly clear. Cardiac contours are unchanged. CONCLUSION: Slight worsening in right lung aeration Electronically signed by: Jerrod Villeda MD 07/24/2018 7:50 AM EDT
[2018-07-24] MEDS: Insulin NovoLOG Aspart Correctional Sugar Inj SQ SCH ×4 (08:21→21:53)
--- NOTE | 2018-07-24 09:23 | P.PNNP ---
Subjective Interval history: Seen during hemodialysis tolerating well. Continues to have shortness of breath and productive cough. <Marcy Gardner - Last Filed: 07/25/18 07:04> Physical Exam Vital signs: Vital Signs 07/23/18 11:03 07/23/18 11:58 07/23/18 15:29 Temperature 98.7 F 98.6 F 99.0 F Pulse Rate 80 76 81 Respiratory Rate 12 12 16 Blood Pressure 79/43 L 92/51 L 97/53 L Pulse Oximetry 98 99 97 07/23/18 17:22 07/23/18 20:00 07/24/18 00:00 Temperature 98.4 F 99.1 F Pulse Rate 80 103 H 87 Respiratory Rate 16 16 Blood Pressure 135/62 124/60 140/68 Pulse Oximetry 98 100 07/24/18 03:59 Temperature 99.5 F Pulse Rate 106 H Respiratory Rate 18 Blood Pressure 141/63 H Pulse Oximetry 100 Intake & Output 07/23/18 07/24/18 07/24/18 18:59 06:59 18:59 Intake Total 1220 / 1220 120 / 120 100 / 100 Output Total 0 / 0 Balance 1220 / 1220 120 / 120 100 / 100 Intake: IV 500 / 500 100 / 100 Maxipime Inj 1,000 MG In NS Inj 100 / 100 100 ML @ 200 mls/hr IV.SIG Q24H L[facility]O Rx#:[id number] NS Inj 500 ML @ As Directed IV. 500 / 500 SIG BOLUS ONE Rx#:[id number] Oral 720 / 720 120 / 120 Output: Urine 0 / 0 Other: # Voids 0 Narrative: GENERAL: Alert and oriented. SKIN: Warm and dry. Left IJ permacath HEAD: Normocephalic. EYES: No scleral icterus. No injection or drainage. NECK: Supple, trachea midline. No JVD or lymphadenopathy. CARDIOVASCULAR: Regular rate and rhythm without murmurs, gallops, or rubs. RESPIRATORY: Breath sounds equal bilaterally. No accessory muscle use. GASTROINTESTINAL: Abdomen soft, non-tender, nondistended. MUSCULOSKELETAL: No cyanosis, or edema. BACK: Nontender without obvious deformity. No CVA tenderness. - Urinary Catheter Management Straight Cath placed during this visit: yes Reason for continuing: Not indwelling catheter Insertion date: 07/21/18 Insertion time: 13:16 <Marcy Gardner - Last Filed: 07/25/18 07:04> Vital signs: Vital Signs 07/24/18 20:00 07/24/18 20:42 07/24/18 23:54 Temperature 97.9 F Pulse Rate 104 H Respiratory Rate 19 18 Blood Pressure 131/63 Pulse Oximetry 91 L 99 07/25/18 00:00 07/25/18 04:00 07/25/18 08:00 Temperature 98.0 F 97.2 F L 98.6 F Pulse Rate 82 72 70 Respiratory Rate 18 18 20 Blood Pressure 95/52 L 113/55 L 122/58 L Pulse Oximetry 98 98 100 07/25/18 10:45 07/25/18 12:00 07/25/18 13:30 Temperature 97.6 F Pulse Rate 76 81 Respiratory Rate 18 22 Blood Pressure 127/58 L Pulse Oximetry 95 93 L 07/25/18 15:55 Temperature 97.8 F Pulse Rate 82 Respiratory Rate 18 Blood Pressure 95/53 L Pulse Oximetry 97 Intake & Output 07/24/18 07/25/18 07/25/18 18:59 06:59 18:59 Intake Total 730 / 730 50 / 50 480 / 480 Output Total 1500 / 1500 100 / 100 Balance -770 / -770 50 / 50 380 / 380 Weight 55.792 kg Intake: IV 250 / 250 50 / 50 Flexbumin 25% Inj 100 ML @ 60 100 / 100 mls/hr IV.SIG WITH DIALYSIS PRN Rx#:[id number] Maxipime Inj 1,000 MG In NS Inj 100 / 100 100 ML @ 200 mls/hr IV.SIG Q24H [facility] Rx#:[id number] Zosyn 2.25 GM Premix 50 ML @ 50 / 50 50 / 50 100 mls/hr IV.SIG Q6H [facility] Rx#: [id number] Oral 480 / 480 480 / 480 Output: Urine 100 / 100 Hemodialysis Amount 1500 / 1500 Other: # Voids 2 # Incontinent Voids 1 Date of Last Bowel Movement 07/24/18 07/24/18 Weight On Admission 55.792 kg - Urinary Catheter Management Straight Cath placed during this visit: no <Juan Green - Last Filed: 07/25/18 16:03> Assessment and Plan - Assessment (1) End stage renal disease Code(s): N18.6 - End stage renal disease Status: Acute Plan: Dr. Green discussed at length that he is most likely end stage renal disease and that at this point would need to continue with hemodialysis as his creatinine is elevated and he has very minimal urinary output. Patient has agreed to continue hemodialysis and to obtain AV fistula for dialysis. Orders placed. Plan Continue with hemodialysis on Saturday, , and Saturday Avoid gadolinium and IVF administration. Case management consulted to arrange outpatient hemodialysis at [facility] per patient request. Dr. Leal consulted for AVF access Vein mapping done. Seen during hemodialysis well remove fluid as tolerated. (2) Anemia Code(s): D64.9 - Anemia, unspecified Status: Acute Onset Date: ~05/22/18 Qualifiers: Anemia type: due to chronic kidney disease Chronic kidney disease stage: stage 5, not on chronic dialysis Qualified Code(s): N18.5 - Chronic kidney disease, stage 5; D63.1 - Anemia in chronic kidney disease Plan: HGB stable Epogen with dialysis. <Marcy Gardner - Last Filed: 07/25/18 07:04> - Assessment (1) End stage renal disease Code(s): N18.6 - End stage renal disease Status: Acute Plan: Patient seen and examined, agree with above. Vascular consulted for AVF. HD today, will follow Vascular recommendation. (2) Anemia Code(s): D64.9 - Anemia, unspecified Status: Acute Onset Date: ~05/22/18 Qualifiers: Anemia type: due to chronic kidney disease Chronic kidney disease stage: stage 5, not on chronic dialysis Qualified Code(s): N18.5 - Chronic kidney disease, stage 5; D63.1 - Anemia in chronic kidney disease <Juan Green - Last Filed: 07/25/18 16:03>
--- NOTE | 2018-07-24 10:18 | P.PNFP ---
Subjective Interval history: Denies any complains No CP, Sob Agreeable to HD Results - Labs Result diagrams: 07/21/18 11:40 07/21/18 20:00 Abnormal lab results 07/23/18 Range/Units 21:12 POC Glucose 116 H (68-110) mg/dl Cardiac Enzymes 07/23/18 Range/Units 20:44 Total Creatine Kinase 283 (39-308) U/L - Imaging Impressions Upper Extremity Ultrasound 07/23/18 00:00 CONCLUSION: 1. Venous mapping study as described. Venous Doppler Study 07/23/18 00:00 CONCLUSION: 1. Negative exam with no evidence of deep venous thrombosis. Chest X-Ray 07/24/18 06:00 CONCLUSION: Slight worsening in right lung aeration Physical Exam Vital signs: Vital Signs 07/23/18 11:03 07/23/18 11:58 07/23/18 15:29 Temperature 98.7 F 98.6 F 99.0 F Pulse Rate 80 76 81 Respiratory Rate 12 12 16 Blood Pressure 79/43 L 92/51 L 97/53 L Pulse Oximetry 98 99 97 07/23/18 17:22 07/23/18 20:00 07/24/18 00:00 Temperature 98.4 F 99.1 F Pulse Rate 80 103 H 87 Respiratory Rate 16 16 Blood Pressure 135/62 124/60 140/68 Pulse Oximetry 98 100 07/24/18 03:59 Temperature 99.5 F Pulse Rate 106 H Respiratory Rate 18 Blood Pressure 141/63 H Pulse Oximetry 100 Intake & Output 07/23/18 07/24/18 07/24/18 18:59 06:59 18:59 Intake Total 1220 / 1220 120 / 120 100 / 100 Output Total 0 / 0 Balance 1220 / 1220 120 / 120 100 / 100 Intake: IV 500 / 500 100 / 100 Maxipime Inj 1,000 MG In NS Inj 100 / 100 100 ML @ 200 mls/hr IV.SIG Q24H [facility] Rx#:[id number] NS Inj 500 ML @ As Directed IV. 500 / 500 SIG BOLUS ONE Rx#:[id number] Oral 720 / 720 120 / 120 Output: Urine 0 / 0 Other: # Voids 0 - Constitutional no acute distress - Routine HEENT Exam Eye: Present: PERRL ENT: Present: mucous membranes moist - Routine Neck Exam Present: supple - Routine Respiratory Exam Present: rhonchi, diminished air movement - Routine Cardiovascular Exam Present: S1, S2 - Routine Abdominal Exam Present: soft, normoactive bowel sounds - Routine Neurological Exam Present: alert - Routine Psychiatric Exam Present: cooperative - Urinary Catheter Management Straight Cath placed during this visit: yes Reason for continuing: Not indwelling catheter Insertion date: 07/21/18 Insertion time: 13:16 Assessment and Plan - Assessment (1) End stage renal disease Code(s): N18.6 - End stage renal disease Status: Acute Plan: Second opinion provided, patient agreeable to HD Consult for AVF, (2) Syncope and collapse Code(s): R55 - Syncope and collapse Status: Acute Plan: Meds adjusted, Cont to monitor BP for hypotension (3) Acute exacerbation of COPD with asthma Code(s): J44.1 - Chronic obstructive pulmonary disease with (acute) exacerbation ; J45.901 - Unspecified asthma with (acute) exacerbation Status: Acute Onset Date: ~05/22/18 Plan: Oxygen supplement, bronchodilators. (4) Hypertension Code(s): I10 - Essential (primary) hypertension Status: Chronic Plan: recently been hypotensive Cont to monitor - Assessment and Plan 07/23/18- Seen this am, he has been running temp 100.3 yesterday and this am 99.7. Blood cultures pending. he is again unsure if he want to continue Dialyses Will consult palliative care. - Agreeable to HD after second opinion. ID consulted for Unknown orgin fever, workup in process. Flu negative, BC negative x 2 days. Started on vanco, cefepime, Azithromycin. DR Milian consulted for AVF. case management consulted fore placement (4) Hypertension Qualifiers: Hypertension type: essential hypertension Qualified Code(s): I10 - Essential (primary) hypertension
[2018-07-24] MEDS: Albumin Human 25% Inj 100 ML IV.SIG PRN (10:45)
[2018-07-24] MEDS: Heparin 10,000 UNITS/10 ML Vial (for IV use) OTHER PRN (10:46)
--- NOTE | 2018-07-24 10:48 | P.CONVS ---
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, 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 - Medical History Medical History: Medical History (Last Reviewed 07/24/18 @ 10:40 by Ceci Sanchez) BPH loc w urin obs/LUTS (Acute) COPD (chronic obstructive pulmonary disease) (Acute) Hypertension (Acute) Degenerative disc disease ESRD (end stage renal disease) on dialysis GERD (gastroesophageal reflux disease) History of alcohol dependence History of squamous cell carcinoma Anemia - Surgical History Surgical History: Surgical History (Last Reviewed 07/24/18 @ 10:40 by Ceci Sanchez) H/O hernia repair - Family History Family History: Family History (Last Reviewed 07/24/18 @ 10:40 by Ceci Sanchez) Other Family history of cancer - Social History I have reviewed the patient's Social History: Yes - Tobacco History Second Hand Smoke Exposure: No Tobacco Use In Past 30 Days: No Smoking Status: Former smoker (41-xnwd-dapx smoking history) Tobacco Type: Cigarettes Packs Per Day: 2 Cigarettes Per Day: 40 Years Smoked: 40 years: 81 - Alcohol History How Often Do You Have a Drink Containing Alcohol: Never (History of alcohol dependence) - Substance Use History Substance History: No History of Abuse - Travel History Recent Travel in the [facility] [place] Within the Last 8 Weeks: No Recent Travel Out of the Country Within the Last 8 Weeks: No - Immunization History Tetanus Immunization: <5 Years Hx Influenza Vaccine This Season: Yes Medications and Allergies Active Medications: Active Medications Acetaminophen/Codeine Phosphate (Tylenol W/Cod #3) 1 tab PO Q4H PRN PRN Reason: PAIN SCALE 1 TO 10 Last Admin: 07/23/18 08:55 Dose: 1 tab Al Hydroxide/Mg Hydroxide (Milk Of Magnesia Liq) 30 ml PO Q12H PRN PRN Reason: Mild Constipation Albuterol (Duoneb Neb (Prn)) 1 ampul NEB Q4HR NEB PRN PRN Reason: sob Bisacodyl (Dulcolax Supp) 10 mg RECTAL DAILY PRN PRN Reason: SEVERE CONSITIPATION Clonidine HCl (Catapres) 0.1 mg PO UNSCH PRN PRN Reason: SEE LABEL COMMENTS Dextrose (D50w Vial) 50 ml IV.PUSH UNSCH PRN PRN Reason: PER HYPOGLYCEMIA PROTOCOL Diphenhydramine HCl (Benadryl) 25 mg PO UNSCH PRN PRN Reason: SEE LABEL COMMENTS Doxepin HCl (Sinequan) 25 mg PO DAILY LALITO Last Admin: 07/23/18 08:55 Dose: 25 mg Gelatin (Gelfoam 12 Mm/7 Mm Topical) 1 foam TOPICAL PRN PRN PRN Reason: help stop bleeding from site Gentamicin Sulfate (Gentamicin Inj) 20 mg OTHER WITH DIALYSIS PRN PRN Reason: Dwell Gentamycin Lock Last Admin: 07/22/18 13:54 Dose: 20 mg Glucagon (Glucagon Inj) 1 mg OTHER PRN PRN PRN Reason: for Hypoglycemia Protocol Heparin Sodium (Porcine) (Heparin Inj) 8,000 units OTHER WITH DIALYSIS PRN PRN Reason: for machine prime Heparin Sodium (Porcine) (Heparin Inj) 1,000 units OTHER WITH DIALYSIS PRN PRN Reason: Dwell Heparin to Fill Catheter Last Admin: 07/22/18 13:54 Dose: 1,000 units Albumin Human (Flexbumin 25% Inj) 100 mls @ 60 mls/hr IV.SIG WITH DIALYSIS PRN PRN Reason: hypotension / volume replace Last Infusion: 07/22/18 16:29 Dose: Infused Sodium Chloride (Ns Inj) 1,000 mls @ 0 mls/hr OTHER .Q0M PRN PRN Reason: for prime and rinse back Sodium Chloride (Ns Inj) 1,000 mls @ 200 mls/hr OTHER .Q5H PRN PRN Reason: for dialyzer flush PRN Sodium Chloride (Ns Inj) 1,000 mls @ 0 mls/hr IV.CONT .Q0M PRN PRN Reason: hypotension / volume replace Cefepime HCl 1,000 mg/ Sodium (Chloride) 100 mls @ 200 mls/hr IV.SIG Q24H LALITO Last Infusion: 07/24/18 07:57 Dose: Infused Azithromycin 500 mg/ Sodium (Chloride) 250 mls @ 250 mls/hr IV.SIG Q24H [facility] Insulin Aspart (Novolog Insulin Correctional Sugar Inj) 0 unit SQ ACHS [facility]; Protocol Last Admin: 07/24/18 08:21 Dose: Not Given Lactulose (Lactulose Liq) 30 ml PO DAILY PRN PRN Reason: SEVERE CONSITIPATION Mannitol (Mannitol Inj) 12.5 gm IV.PUSH UNSCH PRN PRN Reason: hypotension / volume replace Nitroglycerin (Nitrostat Sl) 0.4 mg SL Q5M PRN PRN Reason: CHEST PAIN Ondansetron HCl (Zofran Inj) 4 mg IV.PUSH UNSCH PRN PRN Reason: NAUSEA OR VOMITING Senna/Docusate Sodium (Denise-Colace) 1 tab PO BID [facility] Last Admin: 07/23/18 21:13 Dose: 1 tab Sennosides (Senokot) 17.2 mg PO Q12H PRN PRN Reason: Moderate Constipation Sodium Chloride (Ns Flush) 5 ml IV.FLUSH PRN PRN PRN Reason: flush each lumen during HD Tamsulosin HCl (Flomax) 0.4 mg PO DAILY [facility] Last Admin: 07/23/18 08:55 Dose: 0.4 mg Allergies Allergy/AdvReac Type Severity Reaction Status Date / Time No Known Allergies Allergy Unverified 07/21/18 11:29 Physical Exam Vital Signs / I&O: Vital Signs 07/23/18 11:03 07/23/18 11:58 07/23/18 15:29 Temperature 98.7 F 98.6 F 99.0 F Pulse Rate 80 76 81 Respiratory Rate 12 12 16 Blood Pressure 79/43 L 92/51 L 97/53 L Pulse Oximetry 98 99 97 07/23/18 17:22 07/23/18 20:00 07/24/18 00:00 Temperature 98.4 F 99.1 F Pulse Rate 80 103 H 87 Respiratory Rate 16 16 Blood Pressure 135/62 124/60 140/68 Pulse Oximetry 98 100 07/24/18 03:59 Temperature 99.5 F Pulse Rate 106 H Respiratory Rate 18 Blood Pressure 141/63 H Pulse Oximetry 100 Intake & Output 07/23/18 07/24/18 07/24/18 18:59 06:59 18:59 Intake Total 1220 / 1220 120 / 120 100 / 100 Output Total 0 / 0 Balance 1220 / 1220 120 / 120 100 / 100 Intake: IV 500 / 500 100 / 100 Maxipime Inj 1,000 MG In NS Inj 100 / 100 100 ML @ 200 mls/hr IV.SIG Q24H [facility] Rx#:[id number] NS Inj 500 ML @ As Directed IV. 500 / 500 SIG BOLUS ONE Rx#:[id number] Oral 720 / 720 120 / 120 Output: Urine 0 / 0 Other: # Voids 0 Neuro: Alert and oriented Answered questions appropriately Abnormal speech noted Neck: No JVD distention Heart: RRR w/o M/G/R Lungs: Even and CTA Vascular: Palpable Right/Left Radial Pulses Right chest tunneled cath in place Laboratory Results - last 24 hr 07/23/18 07/23/18 07/23/18 12:58 17:15 20:44 POC Glucose 100 86 Lactic Acid Total Creatine Kinase 283 07/23/18 07/23/18 07/24/18 20:44 21:12 08:03 POC Glucose 116 H 90 Lactic Acid 1.0 Total Creatine Kinase Microbiology 07/23/18 21:25 Influenza Types A,B Antigen - Final Nasal Wash Negative for FLU A and B antigen Infection due to influenza A or B cannot be ruled out since the antigen present in the sample may be below the detection limit of the test. 07/22/18 19:25 Aerobic Blood Culture - Preliminary Blood - Peripheral No growth in 1 day Anaerobic Blood Culture - Preliminary No growth in 1 day Impressions Upper Extremity Ultrasound 07/23/18 00:00 CONCLUSION: 1. Venous mapping study as described. Venous Doppler Study 07/23/18 00:00 CONCLUSION: 1. Negative exam with no evidence of deep venous thrombosis. Chest X-Ray 07/24/18 06:00 CONCLUSION: Slight worsening in right lung aeration Assessment and Plan - Assessment (1) Acute kidney failure Code(s): N17.9 - Acute kidney failure, unspecified Status: Acute Onset Date : ~05/22/18 - Plan 82/M recently Dx with ESRD on HD Consulted for access evaluation Pt Left handed Plan Discussed and reviewed access creation process w/ pt Questions answered Recommend Left arm precautions- No Lab draws or B/P readings (L UE) Arranged out pt f/u w/ vein mapping in 2W Pt made aware of plan Ceci Sanchez TIN POT OPERATOR [facility] [phone] (1) Acute kidney failure Qualifiers: Acute renal failure type: with other specified pathological lesion Qualified Code(s): N17.8 - Other acute kidney failure
[2018-07-24 10:57] LABS: Hematocrit 22.3 % (39.0-51.0); Hemoglobin 7.3 gm/dL (13.0-17.0); Mean Corpuscular HGB Conc 32.7 % (32.0-36.0); Mean Corpuscular Hemoglobin 30.8 pg (27.0-34.0); Mean Corpuscular Volume 94.4 fL (80.0-100.0); Mean Platelet Volume 7.3 fL (7.0-11.0); Platelet Count 196 th/mm3 (150-450); Red Blood Count 2.36 mil/mm3 (4.50-5.90); Red Cell Distribution Width 17.6 % (11.6-17.2)
[2018-07-24 11:28] LABS: Calcium 8.1 mg/dL (8.5-10.1); Carbon Dioxide 29.4 meq/L (21.0-32.0); Potassium 5.2 meq/L (3.5-5.1)
[2018-07-24] MEDS: Azithromycin Inj 500 MG in Sodium Chlor 0.9% Inj 250 ML IV.SIG SCH (12:00)
[2018-07-24] MEDS: Senna/Docusate Sodium 8.6/50 MG Tablet PO SCH ×2 (12:01→21:53)
--- NOTE | 2018-07-24 15:21 | P.PNPAL ---
Palliative care continues to follow along with Mr. Hancock. Patient seen in room 1524. Upon arrival Mr. Hancock is messing with his gown, lunch tray essentially untouched at bedside. At times he is difficult to understand, presents very confused, and other times appears to answer questions appropriately. This appears to be a change from visits this morning by other providers after review of notes. RN in room and aware. Mr. Bonner continued to fidget with lunch tray and utensils. Assisted with cutting up food and he was then able to facilitate eating more efficiently. Still eating upon exit of room, about 50% completed. Gabriela Hansen arrives during my visit. She quickly verbalizes this is a change in patient's cognition. She reports he is normally much more clear and insightful, able to articulate his thoughts. Mr. Bonner confirms he is feeling a bit confused as well. Gabriela provides updated contact information for herself. pedro Goncalves/health care surrogate [phone] (home) [phone] (cell) Gabriela desires for Mr. Bonner to be repositioned and linens cleaned after his meal, nursing staff notified of this request. Introduced palliative care to pedro. Informed her of patient's verbal designation of her as health care surrogate when seen on 07/23/18. She confirms desire to serve in this role. Reports she will be going out of town tomorrow but will be available by cell phone for medical update and if needed by nursing staff/medical team. Palliative care number provided. Plan to follow-up tomorrow to assess Mr. Hancock and continue conversations with patient (if able) and pedro regarding goals of medical treatment.
--- NOTE | 2018-07-24 16:51 | CT ---
EXAM DATE: 07/24/2018 4:48 PM EDT AGE/SEX: 82 years / Male INDICATIONS: Altered mental status. CLINICAL DATA: This is the patient's initial encounter. Patient reports that signs and symptoms have been present for 1 day and indicates a pain score of 0/10. MEDICAL/SURGICAL HISTORY: Renal disease, end stage. Anemia. Hypertension. dialysis, COPD . sonja ia repair RADIATION DOSE: 35.86 CTDI (mGy) [place] [facility] [place]. . TECHNIQUE: CT of the head without contrast. Using automated exposure control and adjustment of the mA and/or kV according to patient size, radiation dose was kept as low as reasonably achievable to ob tain optimal diagnostic quality images. DICOM format image data is available electronically for revi ew and comparison. FINDINGS: Cerebrum: The ventricles are normal for age. No evidence of midline shift, mass lesion, hemorrhage or acute infarction. No extraaxial fluid collections are seen. Posterior Fossa: The cerebellum and brainstem are intact. The 4th ventricle is midline. The cerebe llopontine angle is unremarkable. Extracranial: The visualized portion of the orbits is intact. Skull: The calvaria is intact. No evidence of skull fracture. CONCLUSION: 1. Negative CT Head non contrast. . Electronically signed by: Ab Bartholomew MD 07/24/2018 4:49 PM EDT
--- NOTE | 2018-07-24 17:21 | CT ---
EXAM DATE: 07/24/2018 5:14 PM EDT AGE/SEX: 82 years / Male INDICATIONS: Pneumonia CLINICAL DATA: This is the patient's initial encounter. Patient reports that signs and symptoms have been present for 1 day and indicates a pain score of 1/10. MEDICAL/SURGICAL HISTORY: Chronic obstructive pulmonary disease. Hypertension. Renal disease. Non e. RADIATION DOSE: 6.04 CTDI (mGy) COMPARISON: [facility] [place]ST 1V SINGLE AP, 07/24/2018. [facility], CT CHEST W/O CONTRAST, 05/22/2018. [facility], C T CHEST W/O CONTRAST, 04/29/2018. . TECHNIQUE: Multiple contiguous axial images were obtained through the chest without contrast. Image s were obtained in suspended respiration using multiple row detector helical technique. Using automa debby exposure control and adjustment of the mA and/or kV according to patient size, radiation dose was kept as low as reasonably achievable to obtain optimal diagnostic quality images. DICOM format imag e data is available electronically for review and comparison. FINDINGS: A right jugular approach dialysis catheter is again seen. Diffuse episodic calcification of the aorta and coronary arteries identified. There is patchy consolidation in the right lower lobe as well as t he right middle lobe. There are small bilateral effusions. Severe degenerative changes of the spine a re noted with levoscoliosis at the thoracolumbar junction. Linear atelectatic changes in the right up per lobe and middle lobe are present. In the left upper lobe a pleural-based irregular nodule measuri ng 9.3 mm is seen on image 17 along the oblique fissure. There is an adjacent nodule measuring 6.2 mm on image 15. Moderate emphysematous changes are noted. CONCLUSION: 1. Patchy parenchymal infiltrates and small effusions. 2. Irregular nodules are identified in the left upper lobe. The dominant nodule is stable. The nodul e just superior to this is a new finding. Electronically signed by: Ab Bartholomew MD 07/24/2018 5:19 PM EDT
--- NOTE | 2018-07-24 17:25 | P.PNID ---
Subjective Remarks: confused and lethargic today febrile to 101.2 hypoxic, sats 92% on NC O2 niece @ b/s: pt was smoking up untill 1 month ago, unaware how much pt cont to cough CT chest was dw radiologist Dr Bartholomew: R lung small nodules x2 and RML, RLL consolidations Antibiotics: cefepim vanco azithro Allergies/Adverse Reactions: Allergies No Known Allergies Allergy (Unverified 07/21/18 11:29) Objective Vital Signs 07/23/18 17:22 07/23/18 20:00 07/24/18 00:00 Temperature 98.4 F 99.1 F Pulse Rate 80 103 H 87 Respiratory Rate 16 16 Blood Pressure 135/62 124/60 140/68 Pulse Oximetry 98 100 07/24/18 03:59 07/24/18 12:00 Temperature 99.5 F 101.2 F H Pulse Rate 106 H 118 H Respiratory Rate 18 18 Blood Pressure 141/63 H 144/68 H Pulse Oximetry 100 92 L Intake & Output 07/23/18 07/24/18 07/24/18 18:59 06:59 18:59 Intake Total 1220 / 1220 120 / 120 200 / 200 Output Total 0 / 0 1500 / 1500 Balance 1220 / 1220 120 / 120 -1300 / -1300 Weight 55.792 kg Intake: IV 500 / 500 200 / 200 Flexbumin 25% Inj 100 ML @ 60 100 / 100 mls/hr IV.SIG WITH DIALYSIS PRN Rx#:[id number] Maxipime Inj 1,000 MG In NS Inj 100 / 100 100 ML @ 200 mls/hr IV.SIG Q24H [facility] Rx#:[id number] NS Inj 500 ML @ As Directed IV. 500 / 500 SIG BOLUS ONE Rx#:[id number] Oral 720 / 720 120 / 120 Output: Urine 0 / 0 Hemodialysis Amount 1500 / 1500 Other: # Voids 0 Date of Last Bowel Movement 07/24/18 Weight On Admission 55.792 kg 07/23/18 20:25 Blood - Peripheral Aerobic Blood Culture - Preliminary No growth in 1 day 07/23/18 20:25 Blood - Peripheral Anaerobic Blood Culture - Preliminary No growth in 1 day 07/23/18 20:31 Blood - Peripheral Aerobic Blood Culture - Preliminary No growth in 1 day 07/23/18 20:31 Blood - Peripheral Anaerobic Blood Culture - Preliminary No growth in 1 day 07/22/18 19:25 Blood - Peripheral Aerobic Blood Culture - Preliminary No growth in 2 days 07/22/18 19:25 Blood - Peripheral Anaerobic Blood Culture - Preliminary No growth in 2 days 07/23/18 21:25 Nasal Wash Influenza Types A,B Antigen - Final Negative for FLU A and B antigen Infection due to influenza A or B cannot be ruled out since the antigen present in the sample may be below the detection limit of the test. Lab - Hematology Results 07/24/18 08:30 WBC 4.0 RBC 2.36 L Hgb 7.3 L Hct 22.3 L MCV 94.4 MCH 30.8 MCHC 32.7 RDW 17.6 H Plt Count 196 MPV 7.3 Lab - Chemistry Results 07/22/18 07/22/18 07/23/18 17:32 20:18 08:10 Sodium Potassium Chloride Carbon Dioxide Anion Gap BUN Creatinine Estimated GFR POC Glucose 105 124 H 89 Random Glucose Lactic Acid Calcium Total Creatine Kinase 07/23/18 07/23/18 07/23/18 12:58 17:15 20:44 Sodium Potassium Chloride Carbon Dioxide Anion Gap BUN Creatinine Estimated GFR POC Glucose 100 86 Random Glucose Lactic Acid Calcium Total Creatine Kinase 283 07/23/18 07/23/18 07/24/18 20:44 21:12 08:03 Sodium Potassium Chloride Carbon Dioxide Anion Gap BUN Creatinine Estimated GFR POC Glucose 116 H 90 Random Glucose Lactic Acid 1.0 Calcium Total Creatine Kinase 07/24/18 07/24/18 07/24/18 08:30 11:20 12:07 Sodium 141 Potassium 5.2 H Chloride 105 Carbon Dioxide 29.4 Anion Gap 7 BUN 33 H Creatinine 8.68 H Estimated GFR 7 L POC Glucose 81 111 H Random Glucose 82 Lactic Acid Calcium 8.1 L Total Creatine Kinase Imaging: ITS Impressions Cervical Spine CT 07/21/18 11:36 CONCLUSION: 1. No evidence of acute fracture, traumatic listhesis or significant soft tissue abnormality. 2. Severe degenerative disc disease with collapse of the disc and partial ankylosis at C3-4, C4-5 and C5-6. 3. Severe degenerative disc disease at C6-7 with foraminal encroachment. 4. Severe atlantoaxial degenerative disease 5. Reversal of normal cervical lordosis and mild degenerative anterolisthesis at C3-4. Upper Extremity Ultrasound 07/23/18 00:00 CONCLUSION: 1. Venous mapping study as described. Venous Doppler Study 07/23/18 00:00 CONCLUSION: 1. Negative exam with no evidence of deep venous thrombosis. Chest X-Ray 07/24/18 06:00 CONCLUSION: Slight worsening in right lung aeration Head CT 07/24/18 15:38 CONCLUSION: 1. Negative CT Head non contrast. . Physical Exam: GENERAL: mild resp distress, + very lethargic, confused ill apparing cachectic SKIN: Warm and dry. NO rash HEAD: Atraumatic. Normocephalic. EYES: Pupils equal and round. No scleral icterus. No injection or drainage. ENT: No nasal bleeding or discharge. Mucous membranes dryish edentulous NECK: Trachea midline. No JVD. CARDIOVASCULAR: Regular rate and rhythm. RESPIRATORY: Tachypneic. b/l rhonchi to auscultation. Breath sounds decreased GASTROINTESTINAL: Abdomen soft, non-tender, nondistended. Hepatic and splenic margins not palpable. MUSCULOSKELETAL: Extremities without clubbing, cyanosis, or edema. No obvious deformities. NEUROLOGICAL: very lethargic, but arousable. No obvious cranial nerve deficits. moves all 4 extremeties PSYCHIATRIC: unable toassess Assessment and Plan - Plan ESRD on HD thru Permcath placed few months ago Fever - up to 102 - suspected PNA HD cath infection? PNA flu negative I reviewed CT with radiologist - pt has consolisdations present on the R lung PLAN: fu blood clx fu sutum clx cont patriciao, , renataro will change cefepime to zosyn edna vasquez at b/s
[2018-07-24] MEDS: Piperacil/Tazo 2.25 GM Premix 50 ML IV.SIG SCH (18:11)
[2018-07-24] MEDS: Acetaminophen/Codeine 300/30 MG Tablet PO PRN (21:50)
[2018-07-25] MEDS: Piperacil/Tazo 2.25 GM Premix 50 ML IV.SIG SCH ×3 (00:54→18:16)
[2018-07-25] MEDS ORDERED: Benzonatate 100 MG Capsule PO PRN (08:32)
[2018-07-25 08:34] LABS: Hematocrit 22.6 % (39.0-51.0); Hemoglobin 7.5 gm/dL (13.0-17.0); Mean Corpuscular HGB Conc 33.2 % (32.0-36.0); Mean Corpuscular Hemoglobin 30.8 pg (27.0-34.0); Mean Corpuscular Volume 92.7 fL (80.0-100.0); Mean Platelet Volume 7.2 fL (7.0-11.0); Platelet Count 227 th/mm3 (150-450); Red Blood Count 2.43 mil/mm3 (4.50-5.90); White Blood Count 6.6 th/mm3 (4.0-11.0)
--- NOTE | 2018-07-25 09:25 | P.PNNP ---
Subjective Interval history: Reports pain in left knee. Denies any shortness of breath, nausea, vomiting, or diarrhea. Hemodialysis yesterday tolerated well. <KendraMarcy - Last Filed: 07/25/18 11:48> Physical Exam Vital signs: Vital Signs 07/24/18 12:00 07/24/18 16:00 07/24/18 20:00 Temperature 101.2 F H 100.9 F H 97.9 F Pulse Rate 118 H 95 H 104 H Respiratory Rate 18 17 19 Blood Pressure 144/68 H 160/74 H 131/63 Pulse Oximetry 92 L 98 91 L 07/24/18 20:42 07/24/18 23:54 07/25/18 00:00 Temperature 98.0 F Pulse Rate 82 Respiratory Rate 18 18 Blood Pressure 95/52 L Pulse Oximetry 99 98 07/25/18 04:00 07/25/18 08:00 Temperature 97.2 F L 98.6 F Pulse Rate 72 70 Respiratory Rate 18 20 Blood Pressure 113/55 L 122/58 L Pulse Oximetry 98 100 Intake & Output 07/24/18 07/25/18 07/25/18 18:59 06:59 18:59 Intake Total 730 / 730 50 / 50 Output Total 1500 / 1500 100 / 100 Balance -770 / -770 50 / 50 -100 / -100 Weight 55.792 kg Intake: IV 250 / 250 50 / 50 Flexbumin 25% Inj 100 ML @ 60 100 / 100 mls/hr IV.SIG WITH DIALYSIS PRN Rx#:[id number] Maxipime Inj 1,000 MG In NS Inj 100 / 100 100 ML @ 200 mls/hr IV.SIG Q24H [facility] Rx#:[id number] Zosyn 2.25 GM Premix 50 ML @ 50 / 50 50 / 50 100 mls/hr IV.SIG Q6H [facility] Rx#: [id number] Oral 480 / 480 Output: Urine 100 / 100 Hemodialysis Amount 1500 / 1500 Other: # Voids 2 # Incontinent Voids 1 Date of Last Bowel Movement 07/24/18 07/24/18 Weight On Admission 55.792 kg Narrative: GENERAL: Alert and oriented. SKIN: Warm and dry. Left IJ permacath HEAD: Normocephalic. EYES: No scleral icterus. No injection or drainage. NECK: Supple, trachea midline. No JVD or lymphadenopathy. CARDIOVASCULAR: Regular rate and rhythm without murmurs, gallops, or rubs. RESPIRATORY: Breath sounds equal bilaterally. No accessory muscle use. GASTROINTESTINAL: Abdomen soft, non-tender, nondistended. MUSCULOSKELETAL: No cyanosis, or edema. BACK: Nontender without obvious deformity. No CVA tenderness. - Urinary Catheter Management Straight Cath placed during this visit: yes Reason for continuing: Not indwelling catheter Insertion date: 07/21/18 Insertion time: 13:16 <Marcy Gardner - Last Filed: 07/25/18 11:48> Vital signs: Vital Signs 07/24/18 20:00 07/24/18 20:42 07/24/18 23:54 Temperature 97.9 F Pulse Rate 104 H Respiratory Rate 19 18 Blood Pressure 131/63 Pulse Oximetry 91 L 99 07/25/18 00:00 07/25/18 04:00 07/25/18 08:00 Temperature 98.0 F 97.2 F L 98.6 F Pulse Rate 82 72 70 Respiratory Rate 18 18 20 Blood Pressure 95/52 L 113/55 L 122/58 L Pulse Oximetry 98 98 100 07/25/18 10:45 07/25/18 12:00 07/25/18 13:30 Temperature 97.6 F Pulse Rate 76 81 Respiratory Rate 18 22 Blood Pressure 127/58 L Pulse Oximetry 95 93 L 07/25/18 15:55 Temperature 97.8 F Pulse Rate 82 Respiratory Rate 18 Blood Pressure 95/53 L Pulse Oximetry 97 Intake & Output 07/24/18 07/25/18 07/25/18 18:59 06:59 18:59 Intake Total 730 / 730 50 / 50 480 / 480 Output Total 1500 / 1500 100 / 100 Balance -770 / -770 50 / 50 380 / 380 Weight 55.792 kg Intake: IV 250 / 250 50 / 50 Flexbumin 25% Inj 100 ML @ 60 100 / 100 mls/hr IV.SIG WITH DIALYSIS PRN Rx#:[id number] Maxipime Inj 1,000 MG In NS Inj 100 / 100 100 ML @ 200 mls/hr IV.SIG Q24H [facility] Rx#:[id number] Zosyn 2.25 GM Premix 50 ML @ 50 / 50 50 / 50 100 mls/hr IV.SIG Q6H [facility] Rx#: [id number] Oral 480 / 480 480 / 480 Output: Urine 100 / 100 Hemodialysis Amount 1500 / 1500 Other: # Voids 2 # Incontinent Voids 1 Date of Last Bowel Movement 07/24/18 07/24/18 Weight On Admission 55.792 kg - Urinary Catheter Management Straight Cath placed during this visit: no <Juan Green - Last Filed: 07/25/18 16:05> Assessment and Plan - Assessment (1) End stage renal disease Code(s): N18.6 - End stage renal disease Status: Acute Plan: Dr. Green discussed at length that he is most likely end stage renal disease and that at this point would need to continue with hemodialysis as his creatinine is elevated and he has very minimal urinary output. Patient has agreed to continue hemodialysis and to obtain AV fistula for dialysis Plan Continue with hemodialysis on Saturday, , and Saturday Avoid gadolinium and IVF administration. Recommend Left arm precautions- No Lab draws or B/P readings (L UE) Case management consulted to arrange outpatient hemodialysis at [facility] per patient request. Dr. Leal consulted for AVF access, will be done outpatient Hemodialysis yesterday with removal fo 1.5 liters. Hemodialysis planned for tomorrow (2) Anemia Code(s): D64.9 - Anemia, unspecified Status: Acute Onset Date: ~05/22/18 Qualifiers: Anemia type: due to chronic kidney disease Chronic kidney disease stage: stage 5, not on chronic dialysis Qualified Code(s): N18.5 - Chronic kidney disease, stage 5; D63.1 - Anemia in chronic kidney disease Plan: HGB stable Epogen with dialysis. <Marcy Gardner - Last Filed: 07/25/18 11:48> - Assessment (1) End stage renal disease Code(s): N18.6 - End stage renal disease Status: Acute Plan: Patient seen and examined, agree with above. Palliative care consult and vascular consult noted. He want to continue HD. MRI and MRA results noted. HD will be in AM. (2) Anemia Code(s): D64.9 - Anemia, unspecified Status: Acute Onset Date: ~05/22/18 Qualifiers: Anemia type: due to chronic kidney disease Chronic kidney disease stage: stage 5, not on chronic dialysis Qualified Code(s): N18.5 - Chronic kidney disease, stage 5; D63.1 - Anemia in chronic kidney disease <Juan Green - Last Filed: 07/25/18 16:05>
[2018-07-25] MEDS: Senna/Docusate Sodium 8.6/50 MG Tablet PO SCH ×2 (09:36→20:50)
[2018-07-25] MEDS: Azithromycin Inj 500 MG in Sodium Chlor 0.9% Inj 250 ML IV.SIG SCH (09:36)
[2018-07-25] MEDS: Acetaminophen/Codeine 300/30 MG Tablet PO PRN ×2 (09:39→15:38)
--- NOTE | 2018-07-25 11:18 | P.PNPAL ---
Palliative care continues to follow along with Mr. Hancock. Follow-up today for ongoing support and assessment of confusion. Upon arrival to room today Mr. Hancock is alert, oriented, and able to make his needs known. He is appropriate in conversation and verbalizes feeling much more clear in his thinking today. Mr. Hancock is aware of his confusion yesterday and feels it may have been due to medications??. I asked him if he ever experienced confusion after dialysis previously; his answer was no he had never had profound confusion before. In conversation with Mr. Hancock today his goals remain unchanged. Wishes to continue to dialysis. Discussed health care surrogate with him again and he again confirms he wishes for his niece, Gabriela to serve as primary HCS and his sister Julee as alternate. Contact information has been updated in EMR. This has remained his verbal designation however paperwork for this was completed and signed by the patient today. Copy placed on chart and copy faxed to HIM to be scanned into EMR. Follow-up telephone call to patient's niece Gabriela. She inquires about Mr. Hancock's discharge plan and if he would be able to go to [facility] for further therapy after his hospitalization. She is concerned of his inability to walk at this time and he currently lives alone and would need assistance with ADLS in his home (cleaning, meal planning, etc). Informed her of designation of health care surrogate and placed a copy on his chart for her to pick-up at her next visit to the hospital. Palliative care will continue to follow along throughout hospitalization.
[2018-07-25] MEDS: Insulin NovoLOG Aspart Correctional Sugar Inj SQ SCH ×4 (12:00→23:34)
--- NOTE | 2018-07-25 12:20 | MR ---
EXAM DATE: 07/25/2018 12:11 PM EDT AGE/SEX: 82 years / Male INDICATIONS: Altered mental status. CLINICAL DATA: This is the patient's initial encounter. Patient reports that signs and symptoms have been present for 1 day and indicates a pain score of 0/10. MEDICAL/SURGICAL HISTORY: . Throat cancer. . Throat cancer removal. Hernia repair. COMPARISON: No prior exams available for comparison. TECHNIQUE: Multiplanar, multisequence examination of the brain was performed without contrast. FINDINGS: Cerebrum: Diffuse age-appropriate atrophy. No evidence of midline shift, mass lesion, hemorrhage or acute infarction. No extraaxial fluid collections are seen. The pituitary gland and suprasellar ci bradley are normal in configuration. White Matter: Moderate periventricular white matter hyperintensity indicating chronic ischemic beckford e. Posterior Fossa: The cerebellum and brainstem are intact. The 4th ventricle is midline. The cerebel lopontine angle is unremarkable. The cerebellar tonsils are normal in position. Diffusion Imaging: No focal areas of restricted diffusion are seen. No evidence of acute infarction . Extracranial: The visualized portions of the orbits and paranasal sinuses are unremarkable. Severe d egenerative findings of the cervical spine noted on the sagittal T1-weighted images. CONCLUSION: 1. No acute intracranial findings. 2. Age-related findings. 3. Severe degenerative findings of the cervical spine. Electronically signed by: Dilshad Padron MD 07/25/2018 12:18 PM EDT
--- NOTE | 2018-07-25 12:22 | MR ---
EXAM DATE: 07/25/2018 12:11 PM EDT AGE/SEX: 82 years / Male INDICATIONS: Altered mental status. CLINICAL DATA: This is the patient's initial encounter. Patient reports that signs and symptoms have been present for 1 day and indicates a pain score of 0/10. MEDICAL/SURGICAL HISTORY: . Throat cancer. . Throat cancer removal. Hernia repair. COMPARISON: No prior exams available for comparison. TECHNIQUE: 3D [id number] MRA was performed. Source images, multiplanar STS MIP, and 3D volum e MIP reconstructions were reviewed. FINDINGS: There is excellent visualization of the major intracranial arteries out to the second-order branch ve ssels. There is no evidence for aneurysm, vessel truncation or stenosis, and no evidence for vascula r malformation. CONCLUSION: Brain MRA within normal limits. Electronically signed by: Dilshad Padron MD 07/25/2018 12:21 PM EDT
--- NOTE | 2018-07-25 14:22 | MG ---
cc: Saleem Reilly MD, PhD DATE OF STUDY: 07/25/2018 TEST NUMBER: [id number]. TECHNIQUE: A 17-channel EEG. DESCRIPTION: The background rhythm reveals a symmetrical alpha rhythm, frequency of 8 Hz, amplitude is 10-20 microvolts. During drowsiness, there is slowing in the theta range. No lateralizing features were identified and no epileptiform features are identified. During drowsiness, there is slowing in the theta range. Photic results in a fairly well-developed driving response. INTERPRETATION: Normal electroencephalogram. Saleem Reilly MD, PhD NINO/ld , 02:05 PM , 02:11 PM
--- NOTE | 2018-07-25 15:45 | P.PNFP ---
Subjective Interval history: Seen this am, he complains of B/l le leg pain He denies CP, voices CP at baseline Results - Labs Result diagrams: 07/25/18 07:59 07/24/18 08:30 Abnormal lab results 07/24/18 07/25/18 Range/Units 20:17 07:59 RBC 2.43 L (4.50-5.90) mil/mm3 Hgb 7.5 L (13.0-17.0) gm/dL Hct 22.6 L (39.0-51.0) % POC Glucose 124 H (68-110) mg/dl Short CBC 07/25/18 Range/Units 07:59 WBC 6.6 D (4.0-11.0) th/mm3 Hgb 7.5 L (13.0-17.0) gm/dL Hct 22.6 L (39.0-51.0) % Plt Count 227 (150-450) th/mm3 - Imaging Impressions Chest CT 07/24/18 00:00 CONCLUSION: 1. Patchy parenchymal infiltrates and small effusions. 2. Irregular nodules are identified in the left upper lobe. The dominant nodule is stable. The nodule just superior to this is a new finding. Head CT 07/24/18 15:38 CONCLUSION: 1. Negative CT Head non contrast. . Head MRI 07/25/18 07:03 CONCLUSION: 1. No acute intracranial findings. 2. Age-related findings. 3. Severe degenerative findings of the cervical spine. Head MRA 07/25/18 20:59 CONCLUSION: Brain MRA within normal limits. Physical Exam Vital signs: Vital Signs 07/24/18 16:00 07/24/18 20:00 07/24/18 20:42 Temperature 100.9 F H 97.9 F Pulse Rate 95 H 104 H Respiratory Rate 17 19 Blood Pressure 160/74 H 131/63 Pulse Oximetry 98 91 L 99 07/24/18 23:54 07/25/18 00:00 07/25/18 04:00 Temperature 98.0 F 97.2 F L Pulse Rate 82 72 Respiratory Rate 18 18 18 Blood Pressure 95/52 L 113/55 L Pulse Oximetry 98 98 07/25/18 08:00 07/25/18 10:45 07/25/18 12:00 Temperature 98.6 F 97.6 F Pulse Rate 70 76 Respiratory Rate 20 18 Blood Pressure 122/58 L 127/58 L Pulse Oximetry 100 95 93 L 07/25/18 13:30 Temperature Pulse Rate 81 Respiratory Rate 22 Blood Pressure Pulse Oximetry Intake & Output 07/24/18 07/25/18 07/25/18 18:59 06:59 18:59 Intake Total 730 / 730 50 / 50 480 / 480 Output Total 1500 / 1500 100 / 100 Balance -770 / -770 50 / 50 380 / 380 Weight 55.792 kg Intake: IV 250 / 250 50 / 50 Flexbumin 25% Inj 100 ML @ 60 100 / 100 mls/hr IV.SIG WITH DIALYSIS PRN Rx#:[id number] Maxipime Inj 1,000 MG In NS Inj 100 / 100 100 ML @ 200 mls/hr IV.SIG Q24H [facility] Rx#:[id number] Zosyn 2.25 GM Premix 50 ML @ 50 / 50 50 / 50 100 mls/hr IV.SIG Q6H [facility] Rx#: [id number] Oral 480 / 480 480 / 480 Output: Urine 100 / 100 Hemodialysis Amount 1500 / 1500 Other: # Voids 2 # Incontinent Voids 1 Date of Last Bowel Movement 07/24/18 07/24/18 Weight On Admission 55.792 kg - Constitutional no acute distress - Routine HEENT Exam Head: Present: tenderness of temporal artery ENT: Present: mucous membranes moist - Routine Respiratory Exam Present: wheezes, diminished air movement - Routine Cardiovascular Exam Present: S1, S2 - Routine Abdominal Exam Present: soft, normoactive bowel sounds - Routine Skin Exam Present: dry, warm - Routine Neurological Exam Present: alert, oriented X3 - Routine Psychiatric Exam Present: cooperative - Urinary Catheter Management Straight Cath placed during this visit: yes Reason for continuing: Not indwelling catheter Insertion date: 07/21/18 Insertion time: 13:16 Assessment and Plan - Assessment (1) End stage renal disease Code(s): N18.6 - End stage renal disease Status: Acute Plan: Second opinion provided, patient agreeable to HD Consult for AVF, (2) Syncope and collapse Code(s): R55 - Syncope and collapse Status: Acute Plan: Meds adjusted, Cont to monitor BP for hypotension (3) Acute exacerbation of COPD with asthma Code(s): J44.1 - Chronic obstructive pulmonary disease with (acute) exacerbation ; J45.901 - Unspecified asthma with (acute) exacerbation Status: Acute Onset Date: ~05/22/18 Plan: Oxygen supplement, bronchodilators. (4) Hypertension Code(s): I10 - Essential (primary) hypertension Status: Chronic Plan: recently been hypotensive Cont to monitor (5) Pneumonia Code(s): J18.9 - Pneumonia, unspecified organism Status: Acute Plan: If following, Cont IV Azithromycin, Zosyn, Bronchodilators, Oxygen supplement. Will have swallow eval completed. - Assessment and Plan 07/23/18- Seen this am, he has been running temp 100.3 yesterday and this am 99.7. Blood cultures pending. he is again unsure if he want to continue Dialyses Will consult palliative care. - Agreeable to HD after second opinion. ID consulted for Unknown orgin fever, workup in process. Flu negative, BC negative x 2 days. Started on vanco, cefepime, Azithromycin. DR Milian consulted for AVF. case management consulted fore placement 07/25/18- Seen this am, he is more alert, sat's are maintained on [address] shows small nodule and infiltrate in RML And RLL. Blood cultures with no growth x 2 days. Negative influenza. Had episode yesterday of increased confusion,Ct head negative, Mri, Mra negative , EEG negative. He continues to proceed with Dialysis, Vascular seen order for No Lab stick or BP in left UE.CM working on lupillo placement. (4) Hypertension Qualifiers: Hypertension type: essential hypertension Qualified Code(s): I10 - Essential (primary) hypertension (5) Pneumonia Qualifiers: Laterality: right Lung location: lower lobe of lung
[2018-07-25] MEDS ORDERED: Sodium Chlor 0.9% Inj 500 ML IV.SIG ONE (22:00)
[2018-07-26] MEDS: Piperacil/Tazo 2.25 GM Premix 50 ML IV.SIG SCH ×2 (05:41→17:38)
[2018-07-26 07:18] LABS: Hematocrit 28.9 % (39.0-51.0); Hemoglobin 9.3 gm/dL (13.0-17.0); Mean Corpuscular HGB Conc 32.1 % (32.0-36.0); Mean Corpuscular Hemoglobin 30.4 pg (27.0-34.0); Mean Corpuscular Volume 94.6 fL (80.0-100.0); Mean Platelet Volume 7.4 fL (7.0-11.0); Platelet Count 266 th/mm3 (150-450); Red Blood Count 3.06 mil/mm3 (4.50-5.90); Red Cell Distribution Width 17.4 % (11.6-17.2); White Blood Count 8.9 th/mm3 (4.0-11.0)
[2018-07-26] MEDS: Insulin NovoLOG Aspart Correctional Sugar Inj SQ SCH ×4 (08:05→23:00)
--- NOTE | 2018-07-26 10:01 | P.PNNP ---
Subjective Interval history: Patient seen during HD, alert, no complain. Physical Exam Vital signs: Vital Signs 07/25/18 10:45 07/25/18 12:00 07/25/18 13:30 Temperature 97.6 F Pulse Rate 76 81 Respiratory Rate 18 22 Blood Pressure 127/58 L Pulse Oximetry 95 93 L 07/25/18 15:55 07/25/18 19:24 07/25/18 20:00 Temperature 97.8 F 97.8 F Pulse Rate 82 76 Respiratory Rate 18 18 Blood Pressure 95/53 L 87/43 L Pulse Oximetry 97 96 94 L 07/25/18 20:30 07/25/18 22:00 07/26/18 00:00 Temperature 98 F Pulse Rate 100 H 89 Respiratory Rate 20 18 Blood Pressure 126/56 L 124/65 Pulse Oximetry 100 99 07/26/18 04:00 Temperature 97.4 F L Pulse Rate 71 Respiratory Rate 18 Blood Pressure 108/58 L Pulse Oximetry 99 Intake & Output 07/25/18 07/26/18 07/26/18 18:59 06:59 18:59 Intake Total 730 / 730 650 / 650 Output Total 100 / 100 Balance 630 / 630 650 / 650 Weight 53.8 kg Intake: IV 250 / 250 650 / 650 Azithromycin Inj 500 MG In NS 250 / 250 Inj 250 ML @ 250 mls/hr IV.SIG Q24H [facility] Rx#:[id number] Zosyn 2.25 GM Premix 50 ML @ 100 / 100 100 mls/hr IV.SIG Q12H [facility] Rx#: [id number] NS Inj 500 ML @ 999 mls/hr IV. 500 / 500 SIG .Q31M [facility] Rx#:[id number] Oral 480 / 480 Output: Urine 100 / 100 Other: # Incontinent Voids 1 Date of Last Bowel Movement 07/24/18 Narrative: GENERAL: Alert and oriented. SKIN: Warm and dry. Left IJ permacath HEAD: Normocephalic. EYES: No scleral icterus. No injection or drainage. NECK: Supple, trachea midline. No JVD or lymphadenopathy. CARDIOVASCULAR: Regular rate and rhythm without murmurs, gallops, or rubs. RESPIRATORY: Breath sounds equal bilaterally. No accessory muscle use. GASTROINTESTINAL: Abdomen soft, non-tender, nondistended. MUSCULOSKELETAL: No cyanosis, or edema. BACK: Nontender without obvious deformity. No CVA tenderness. - Urinary Catheter Management Straight Cath placed during this visit: yes Reason for continuing: Not indwelling catheter Insertion date: 07/21/18 Insertion time: 13:16 Assessment and Plan - Assessment (1) End stage renal disease Code(s): N18.6 - End stage renal disease Status: Acute Plan: Continue with hemodialysis on Saturday, , and Saturday Avoid gadolinium and IVF administration. Recommend Left arm precautions- No Lab draws or B/P readings (L UE) Case management consulted to arrange outpatient hemodialysis at [facility] per patient request. Dr. Leal consulted for AVF access, will be done outpatient. HD now, save left arm for future AVF. (2) Anemia Code(s): D64.9 - Anemia, unspecified Status: Acute Onset Date: ~05/22/18 Qualifiers: Anemia type: due to chronic kidney disease Chronic kidney disease stage: stage 5, not on chronic dialysis Qualified Code(s): N18.5 - Chronic kidney disease, stage 5; D63.1 - Anemia in chronic kidney disease Plan: HGB stable Epogen with dialysis.
--- NOTE | 2018-07-26 10:40 | P.PNFP ---
Subjective Interval history: Patient seen and examined on dialysis. He tells me he is "feeling better" and is without complaints. Results - Labs Result diagrams: 07/26/18 06:24 07/24/18 08:30 Abnormal lab results 07/25/18 07/25/18 07/26/18 Range/Units 18:15 22:11 06:24 RBC 3.06 L (4.50-5.90) mil/mm3 Hgb 9.3 L (13.0-17.0) gm/dL Hct 28.9 L (39.0-51.0) % RDW 17.4 H (11.6-17.2) % POC Glucose 123 H 211 H (68-110) mg/dl Short CBC 07/26/18 Range/Units 06:24 WBC 8.9 (4.0-11.0) th/mm3 Hgb 9.3 L (13.0-17.0) gm/dL Hct 28.9 L (39.0-51.0) % Plt Count 266 (150-450) th/mm3 - Imaging Impressions Head MRI 07/25/18 07:03 CONCLUSION: 1. No acute intracranial findings. 2. Age-related findings. 3. Severe degenerative findings of the cervical spine. Head MRA 07/25/18 20:59 CONCLUSION: Brain MRA within normal limits. Physical Exam Vital signs: Vital Signs 07/25/18 10:45 07/25/18 12:00 07/25/18 13:30 Temperature 97.6 F Pulse Rate 76 81 Respiratory Rate 18 22 Blood Pressure 127/58 L Pulse Oximetry 95 93 L 07/25/18 15:55 07/25/18 19:24 07/25/18 20:00 Temperature 97.8 F 97.8 F Pulse Rate 82 76 Respiratory Rate 18 18 Blood Pressure 95/53 L 87/43 L Pulse Oximetry 97 96 94 L 07/25/18 20:30 07/25/18 22:00 07/26/18 00:00 Temperature 98 F Pulse Rate 100 H 89 Respiratory Rate 20 18 Blood Pressure 126/56 L 124/65 Pulse Oximetry 100 99 07/26/18 04:00 Temperature 97.4 F L Pulse Rate 71 Respiratory Rate 18 Blood Pressure 108/58 L Pulse Oximetry 99 Intake & Output 09/14/18 09/15/18 09/15/18 18:59 06:59 18:59 Intake Total 730 / 730 650 / 650 Output Total 100 / 100 Balance 630 / 630 650 / 650 Weight 53.8 kg Intake: IV 250 / 250 650 / 650 Azithromycin Inj 500 MG In NS 250 / 250 Inj 250 ML @ 250 mls/hr IV.SIG Q24H [facility] Rx#:[id number] Zosyn 2.25 GM Premix 50 ML @ 100 / 100 100 mls/hr IV.SIG Q12H [facility] Rx#: [id number] NS Inj 500 ML @ 999 mls/hr IV. 500 / 500 SIG .Q31M ONE Rx#:[id number] Oral 480 / 480 Output: Urine 100 / 100 Other: # Incontinent Voids 1 Date of Last Bowel Movement 07/24/18 - Constitutional no acute distress - Routine HEENT Exam Head: Present: normocephalic, atraumatic Eye: Present: PERRL, normal accommodation ENT: Present: mucous membranes moist - Routine Respiratory Exam Present: CTA bilaterally - Routine Cardiovascular Exam Present: RRR, S1, S2 - Routine Abdominal Exam Present: soft, normoactive bowel sounds - Routine Extremities Exam Present: full ROM - Routine Skin Exam Present: intact - Routine Neurological Exam Present: alert, oriented X3 - Detailed Neurological Exam: Coma Scale Eye Opening: Spontaneous Verbal Response: Oriented Motor Response: Obey commands Annelise Coma Scale Total: 15 - Routine Psychiatric Exam Present: normal affect - Urinary Catheter Management Straight Cath placed during this visit: yes Reason for continuing: Not indwelling catheter Insertion date: 07/21/18 Insertion time: 13:16 Assessment and Plan - Assessment (1) End stage renal disease Code(s): N18.6 - End stage renal disease Status: Acute Plan: Patient and examined on dialysis. Now with ESRD on HD per renal. Consult pending for AVF. (2) Syncope and collapse Code(s): R55 - Syncope and collapse Status: Acute Plan: Meds adjusted, Cont to monitor BP for hypotension. He received a bolus of fluid for low BP earlier. (3) Acute exacerbation of COPD with asthma Code(s): J44.1 - Chronic obstructive pulmonary disease with (acute) exacerbation ; J45.901 - Unspecified asthma with (acute) exacerbation Status: Acute Onset Date: ~05/22/18 Plan: Oxygen supplement, bronchodilators. Breathing without C/O SOB. (4) Hypertension Code(s): I10 - Essential (primary) hypertension Status: Chronic Plan: recently been hypotensive responding to bolus IVF. Cont to monitor (5) Pneumonia Code(s): J18.9 - Pneumonia, unspecified organism Status: Acute Plan: ID following, Cont IV Azithromycin, Zosyn, Bronchodilators, Oxygen supplement. Will have swallow eval completed. - Assessment and Plan 07/23/18- Seen this am, he has been running temp 100.3 yesterday and this am 99.7. Blood cultures pending. he is again unsure if he want to continue Dialyses Will consult palliative care. - Agreeable to HD after second opinion. ID consulted for Unknown orgin fever, workup in process. Flu negative, BC negative x 2 days. Started on vanco, cefepime, Azithromycin. DR Milian consulted for AVF. case management consulted fore placement 07/25/18- Seen this am, he is more alert, sat's are maintained on [address] shows small nodule and infiltrate in RML And RLL. Blood cultures with no growth x 2 days. Negative influenza. Had episode yesterday of increased confusion,Ct head negative, Mri, Mra negative , EEG negative. He continues to proceed with Dialysis, Vascular seen order for No Lab stick or BP in left UE.CM working on lupillo placement. 07/26/18 - Now on dialysis and without complaints. If BP remains low, will need Midodrine to support. Will F/U renal and ID recommendations. Vascular access as an outpatient per VS. Discussed Condition With: Patient Discharge Planning: Return to SNF (4) Hypertension Qualifiers: Hypertension type: essential hypertension Qualified Code(s): I10 - Essential (primary) hypertension (5) Pneumonia Qualifiers: Laterality: right Lung location: lower lobe of lung
[2018-07-26] MEDS: Senna/Docusate Sodium 8.6/50 MG Tablet PO SCH ×2 (12:27→22:59)
[2018-07-26] MEDS: Azithromycin Inj 500 MG in Sodium Chlor 0.9% Inj 250 ML IV.SIG SCH (12:32)
--- NOTE | 2018-07-26 17:02 | P.PNID ---
Subjective Remarks: confused and awake today afebrile pt cont to cough, but improved blood clx remain negatrive @ 3 days Antibiotics: zosyn azithro Allergies/Adverse Reactions: Allergies No Known Allergies Allergy (Unverified 07/21/18 11:29) Objective Vital Signs 07/25/18 19:24 07/25/18 20:00 07/25/18 20:30 Temperature 97.8 F Pulse Rate 76 100 H Respiratory Rate 18 20 Blood Pressure 87/43 L Pulse Oximetry 96 94 L 100 07/25/18 22:00 07/26/18 00:00 07/26/18 04:00 Temperature 98 F 97.4 F L Pulse Rate 89 71 Respiratory Rate 18 18 Blood Pressure 126/56 L 124/65 108/58 L Pulse Oximetry 99 99 07/26/18 12:17 Temperature Pulse Rate 71 Respiratory Rate 18 Blood Pressure Pulse Oximetry Intake & Output 07/25/18 07/26/18 07/26/18 18:59 06:59 18:59 Intake Total 730 / 730 650 / 650 Output Total 100 / 100 1500 / 1500 Balance 630 / 630 650 / 650 -1500 / -1500 Weight 53.8 kg Intake: IV 250 / 250 650 / 650 Azithromycin Inj 500 MG In NS 250 / 250 Inj 250 ML @ 250 mls/hr IV.SIG Q24H [facility] Rx#:[id number] Zosyn 2.25 GM Premix 50 ML @ 100 / 100 100 mls/hr IV.SIG Q12H [facility] Rx#: [id number] NS Inj 500 ML @ 999 mls/hr IV. 500 / 500 SIG .Q31M ONE Rx#:[id number] Oral 480 / 480 Output: Urine 100 / 100 Hemodialysis Amount 1500 / 1500 Other: # Incontinent Voids 1 Date of Last Bowel Movement 07/24/18 07/23/18 20:25 Blood - Peripheral Aerobic Blood Culture - Preliminary No growth in 3 days 07/23/18 20:25 Blood - Peripheral Anaerobic Blood Culture - Preliminary No growth in 3 days 07/23/18 20:31 Blood - Peripheral Aerobic Blood Culture - Preliminary No growth in 3 days 07/23/18 20:31 Blood - Peripheral Anaerobic Blood Culture - Preliminary No growth in 3 days 07/22/18 19:25 Blood - Peripheral Aerobic Blood Culture - Preliminary No growth in 4 days 07/22/18 19:25 Blood - Peripheral Anaerobic Blood Culture - Preliminary No growth in 4 days 07/23/18 21:25 Nasal Wash Influenza Types A,B Antigen - Final Negative for FLU A and B antigen Infection due to influenza A or B cannot be ruled out since the antigen present in the sample may be below the detection limit of the test. Lab - Hematology Results 07/25/18 07/26/18 07:59 06:24 WBC 6.6 D 8.9 RBC 2.43 L 3.06 L Hgb 7.5 L 9.3 L Hct 22.6 L 28.9 L MCV 92.7 94.6 MCH 30.8 30.4 MCHC 33.2 32.1 RDW 17.0 17.4 H Plt Count 227 266 MPV 7.2 7.4 Lab - Chemistry Results 07/24/18 07/24/18 07/25/18 17:13 20:17 07:56 POC Glucose 105 124 H 89 07/25/18 07/25/18 07/25/18 12:51 18:15 22:11 POC Glucose 81 123 H 211 H 07/26/18 07/26/18 07/26/18 07:48 11:05 12:36 POC Glucose 93 98 427 H Imaging: ITS Impressions Cervical Spine CT 07/21/18 11:36 CONCLUSION: 1. No evidence of acute fracture, traumatic listhesis or significant soft tissue abnormality. 2. Severe degenerative disc disease with collapse of the disc and partial ankylosis at C3-4, C4-5 and C5-6. 3. Severe degenerative disc disease at C6-7 with foraminal encroachment. 4. Severe atlantoaxial degenerative disease 5. Reversal of normal cervical lordosis and mild degenerative anterolisthesis at C3-4. Upper Extremity Ultrasound 07/23/18 00:00 CONCLUSION: 1. Venous mapping study as described. Venous Doppler Study 07/23/18 00:00 CONCLUSION: 1. Negative exam with no evidence of deep venous thrombosis. Chest CT 07/24/18 00:00 CONCLUSION: 1. Patchy parenchymal infiltrates and small effusions. 2. Irregular nodules are identified in the left upper lobe. The dominant nodule is stable. The nodule just superior to this is a new finding. Chest X-Ray 07/24/18 06:00 CONCLUSION: Slight worsening in right lung aeration Head CT 07/24/18 15:38 CONCLUSION: 1. Negative CT Head non contrast. . Head MRI 07/25/18 07:03 CONCLUSION: 1. No acute intracranial findings. 2. Age-related findings. 3. Severe degenerative findings of the cervical spine. Head MRA 07/25/18 20:59 CONCLUSION: Brain MRA within normal limits. Physical Exam: GENERAL: no distress, fully awake ill apparing cachectic SKIN: Warm and dry. NO rash HEAD: Atraumatic. Normocephalic. EYES: Pupils equal and round. No scleral icterus. No injection or drainage. ENT: No nasal bleeding or discharge. Mucous membranes dryish edentulous NECK: Trachea midline. No JVD. CARDIOVASCULAR: Regular rate and rhythm. RESPIRATORY: Tachypneic. very few b/l rhonchi to auscultation. Breath sounds decreased GASTROINTESTINAL: Abdomen soft, non-tender, nondistended. Hepatic and splenic margins not palpable. MUSCULOSKELETAL: Extremities without clubbing, cyanosis, or edema. No obvious deformities. NEUROLOGICAL: awke, follows commansdf. No obvious cranial nerve deficits. moves all 4 extremeties PSYCHIATRIC: calm, cooperative Assessment and Plan - Plan ESRD on HD thru Permcath placed few months ago Fever - up to 102 - resolved source likely PNA - suspected PNA, clinically improved on zosyn, azithro HD cath infection? flu negative PLAN: fu blood clx untill final fu sputum clx no need for vanco, , cont azithro cont zosyn repeat CX in am
[2018-07-27] MEDS: Piperacil/Tazo 2.25 GM Premix 50 ML IV.SIG SCH ×2 (05:50→17:55)
--- NOTE | 2018-07-27 06:37 | XR ---
EXAM DATE: 07/27/2018 6:05 AM EDT AGE/SEX: 82 years / Male INDICATIONS: Shortness of breath. Cough CLINICAL DATA: This is the patient's subsequent encounter. Patient reports that signs and symptoms h ave been present for 4 - 6 days and indicates a pain score of 0/10. MEDICAL/SURGICAL HISTORY: . Chronic obstructive pulmonary disease. Hypertension. Renal disease, end stage. . port right chest COMPARISON: [facility] [place], CT CHEST W/O CONTRAST, 07/24/2018. . FINDINGS: Stable right IJ dialysis catheter in place. Patchy airspace consolidation and in the right midlung zo ne unchanged from prior exam. Cardiomediastinal contours are stable. Remainder of exam is unchanged. CONCLUSION: 1. No significant interval change with patchy right midlung airspace consolidation. Electronically signed by: Ben Slater MD 07/27/2018 6:36 AM EDT
[2018-07-27] MEDS: Insulin NovoLOG Aspart Correctional Sugar Inj SQ SCH ×4 (09:28→22:55)
[2018-07-27] MEDS: Senna/Docusate Sodium 8.6/50 MG Tablet PO SCH ×2 (09:28→22:56)
[2018-07-27] MEDS: Azithromycin Inj 500 MG in Sodium Chlor 0.9% Inj 250 ML IV.SIG SCH (09:28)
[2018-07-27] MEDS: Acetaminophen/Codeine 300/30 MG Tablet PO PRN ×2 (09:30→18:35)
--- NOTE | 2018-07-27 10:22 | P.PNFP ---
Subjective Interval history: He tells me he tolerated dialysis yesterday without a problem. He is hopeful to return to [facility] when D/[facility] and is concerned he may be sent to a SNF. Results - Labs Result diagrams: 07/26/18 06:24 07/24/18 08:30 Abnormal lab results 07/26/18 07/26/18 07/26/18 Range/Units 12:36 16:59 22:49 POC Glucose 427 H 307 H 58 L (68-110) mg/dl 07/26/18 07/27/18 Range/Units 22:54 07:32 POC Glucose 50 L 196 H (68-110) mg/dl - Imaging Impressions Chest X-Ray 07/27/18 06:00 CONCLUSION: 1. No significant interval change with patchy right midlung airspace consolidation. Physical Exam Vital signs: Vital Signs 07/26/18 12:17 07/26/18 16:00 07/26/18 20:00 Temperature 100.5 F H 98.3 F Pulse Rate 71 109 H 111 H Respiratory Rate 18 18 19 Blood Pressure 96/53 L 88/50 L Pulse Oximetry 95 96 07/26/18 20:14 07/27/18 00:00 07/27/18 04:00 Temperature 98 F 98 F Pulse Rate 113 H 75 91 H Respiratory Rate 18 18 18 Blood Pressure 124/56 L 127/60 Pulse Oximetry 93 L 96 97 07/27/18 08:00 07/27/18 08:22 Temperature 97.9 F Pulse Rate 109 H 91 H Respiratory Rate 20 18 Blood Pressure 112/57 L Pulse Oximetry 95 97 Intake & Output 07/26/18 07/27/18 07/27/18 18:59 06:59 18:59 Intake Total 350 / 350 Output Total 1500 / 1500 Balance -1500 / -1500 350 / 350 Weight 51.6 kg Intake: IV 350 / 350 Azithromycin Inj 500 MG In NS 250 / 250 Inj 250 ML @ 250 mls/hr IV.SIG Q24H [facility] Rx#:[id number] Zosyn 2.25 GM Premix 50 ML @ 100 / 100 100 mls/hr IV.SIG Q12H [facility] Rx#: [id number] Output: Hemodialysis Amount 1500 / 1500 Other: # Voids 1 Date of Last Bowel Movement 07/27/18 - Constitutional no acute distress - Routine HEENT Exam Head: Present: normocephalic Eye: Present: PERRL, normal accommodation ENT: Present: mucous membranes moist - Routine Neck Exam Present: supple - Routine Respiratory Exam Present: distant breath sounds - Routine Cardiovascular Exam Present: RRR, S1, S2 - Routine Abdominal Exam Present: soft, normoactive bowel sounds - Routine Extremities Exam Present: full ROM - Routine Skin Exam Present: intact - Routine Neurological Exam Present: alert, oriented X3 - Detailed Neurological Exam: Coma Scale Eye Opening: Spontaneous Verbal Response: Oriented Motor Response: Obey commands Annelise Coma Scale Total: 15 - Routine Psychiatric Exam Present: normal affect - Urinary Catheter Management Straight Cath placed during this visit: yes Reason for continuing: Not indwelling catheter Insertion date: 07/21/18 Insertion time: 13:16 Assessment and Plan - Assessment (1) End stage renal disease Code(s): N18.6 - End stage renal disease Status: Acute Plan: Patient had dialysis yesterday and is off today. Now with ESRD on HD per renal. Consult pending for AVF. (2) Syncope and collapse Code(s): R55 - Syncope and collapse Status: Acute Plan: Meds adjusted, Cont to monitor BP for hypotension. He received a bolus of fluid for low BP early yesterday. (3) Acute exacerbation of COPD with asthma Code(s): J44.1 - Chronic obstructive pulmonary disease with (acute) exacerbation ; J45.901 - Unspecified asthma with (acute) exacerbation Status: Acute Onset Date: ~05/22/18 Plan: Oxygen supplement, bronchodilators. Breathing without C/O SOB. (4) Hypertension Code(s): I10 - Essential (primary) hypertension Status: Chronic Plan: Hypotension responded to bolus IVF. Cont to monitor (5) Pneumonia Code(s): J18.9 - Pneumonia, unspecified organism Status: Acute Plan: ID following, Cont IV Azithromycin, Zosyn, Bronchodilators, Oxygen supplement. Will have swallow eval completed. - Assessment and Plan 07/23/18- Seen this am, he has been running temp 100.3 yesterday and this am 99.7. Blood cultures pending. he is again unsure if he want to continue Dialyses Will consult palliative care. - Agreeable to HD after second opinion. ID consulted for Unknown orgin fever, workup in process. Flu negative, BC negative x 2 days. Started on vanco, cefepime, Azithromycin. DR Milian consulted for AVF. case management consulted fore placement 07/25/18- Seen this am, he is more alert, sat's are maintained on [address] shows small nodule and infiltrate in RML And RLL. Blood cultures with no growth x 2 days. Negative influenza. Had episode yesterday of increased confusion,Ct head negative, Mri, Mra negative , EEG negative. He continues to proceed with Dialysis, Vascular seen order for No Lab stick or BP in left UE.CM working on lupillo placement. 07/26/18 - Now on dialysis and without complaints. If BP remains low, will need Midodrine to support. Will F/U renal and ID recommendations. Vascular access as an outpatient per VS. 07/27/18 - He is concerned about D/C and wants to go back to [facility] rather than SNF. ID following and monitoring antibiotic therapy and cultures. Presume he will be referred for AVF as an outpatient after infection resolved and cleared by ID. Discharge Planning: Return to SNF or rehab (4) Hypertension Qualifiers: Hypertension type: essential hypertension Qualified Code(s): I10 - Essential (primary) hypertension (5) Pneumonia Qualifiers: Laterality: right Lung location: lower lobe of lung
--- NOTE | 2018-07-27 17:57 | P.PNNP ---
Subjective Interval history: Patient seen in the afternoon, clinically same. Physical Exam Vital signs: Vital Signs 07/26/18 20:00 07/26/18 20:14 07/27/18 00:00 Temperature 98.3 F 98 F Pulse Rate 111 H 113 H 75 Respiratory Rate 19 18 18 Blood Pressure 88/50 L 124/56 L Pulse Oximetry 96 93 L 96 07/27/18 04:00 07/27/18 08:00 07/27/18 08:22 Temperature 98 F 97.9 F Pulse Rate 91 H 109 H 91 H Respiratory Rate 18 20 18 Blood Pressure 127/60 112/57 L Pulse Oximetry 97 95 97 07/27/18 12:00 07/27/18 12:19 07/27/18 12:58 Temperature 98.7 F Pulse Rate 107 H 91 H Respiratory Rate 20 18 Blood Pressure 76/47 L 77/38 L Pulse Oximetry 91 L 07/27/18 16:00 Temperature 97.6 F Pulse Rate 95 H Respiratory Rate 20 Blood Pressure 99/51 L Pulse Oximetry 93 L Intake & Output 07/26/18 07/27/18 07/27/18 18:59 06:59 18:59 Intake Total 350 / 350 Output Total 1500 / 1500 Balance -1500 / -1500 350 / 350 Weight 51.6 kg Intake: IV 350 / 350 Azithromycin Inj 500 MG In NS 250 / 250 Inj 250 ML @ 250 mls/hr IV.SIG Q24H [facility] Rx#:[id number] Zosyn 2.25 GM Premix 50 ML @ 100 / 100 100 mls/hr IV.SIG Q12H [facility] Rx#: [id number] Output: Hemodialysis Amount 1500 / 1500 Other: # Voids 1 Date of Last Bowel Movement 07/27/18 07/27/18 Narrative: GENERAL: Alert and oriented. SKIN: Warm and dry. Left IJ permacath HEAD: Normocephalic. EYES: No scleral icterus. No injection or drainage. NECK: Supple, trachea midline. No JVD or lymphadenopathy. CARDIOVASCULAR: Regular rate and rhythm without murmurs, gallops, or rubs. RESPIRATORY: Breath sounds equal bilaterally. No accessory muscle use. GASTROINTESTINAL: Abdomen soft, non-tender, nondistended. MUSCULOSKELETAL: No cyanosis, or edema. BACK: Nontender without obvious deformity. No CVA tenderness. - Urinary Catheter Management Straight Cath placed during this visit: yes Reason for continuing: Not indwelling catheter Insertion date: 07/21/18 Insertion time: 13:16 Assessment and Plan - Assessment (1) End stage renal disease Code(s): N18.6 - End stage renal disease Status: Acute Plan: Continue with hemodialysis on Saturday, , and Saturday Avoid gadolinium and IVF administration. Recommend Left arm precautions- No Lab draws or B/P readings (L UE) Case management consulted to arrange outpatient hemodialysis at [facility] per patient request. Dr. Leal consulted for AVF access, will be done outpatient. save left arm for future AVF. HD done yesterday. (2) Anemia Code(s): D64.9 - Anemia, unspecified Status: Acute Onset Date: ~05/22/18 Qualifiers: Anemia type: due to chronic kidney disease Chronic kidney disease stage: stage 5, not on chronic dialysis Qualified Code(s): N18.5 - Chronic kidney disease, stage 5; D63.1 - Anemia in chronic kidney disease Plan: HGB stable Epogen with dialysis.
[2018-07-28] MEDS: Piperacil/Tazo 2.25 GM Premix 50 ML IV.SIG SCH ×2 (07:04→17:24)
[2018-07-28] MEDS: Acetaminophen/Codeine 300/30 MG Tablet PO PRN ×2 (07:04→21:37)
[2018-07-28] MEDS: Insulin NovoLOG Aspart Correctional Sugar Inj SQ SCH ×4 (08:51→21:35)
[2018-07-28] MEDS: Senna/Docusate Sodium 8.6/50 MG Tablet PO SCH ×2 (08:52→21:36)
[2018-07-28] MEDS: Azithromycin Inj 500 MG in Sodium Chlor 0.9% Inj 250 ML IV.SIG SCH (08:52)
--- NOTE | 2018-07-28 09:54 | P.PNNP ---
Subjective Interval history: Resting comfortably this morning. Concerned about placement at discharge. <Marcy Gardner - Last Filed: 07/28/18 09:46> Physical Exam Vital signs: Vital Signs 07/27/18 12:00 07/27/18 12:19 07/27/18 12:58 Temperature 98.7 F Pulse Rate 107 H 91 H Respiratory Rate 20 18 Blood Pressure 76/47 L 77/38 L Pulse Oximetry 91 L 07/27/18 16:00 07/27/18 19:50 07/27/18 20:00 Temperature 97.6 F 98.8 F Pulse Rate 95 H 113 H Respiratory Rate 20 20 18 Blood Pressure 99/51 L 102/53 L Pulse Oximetry 93 L 93 L 96 07/27/18 21:49 07/28/18 00:00 07/28/18 04:00 Temperature 98.6 F 98.8 F Pulse Rate 93 H 105 H 100 H Respiratory Rate 16 16 16 Blood Pressure 86/46 L 112/54 L Pulse Oximetry 93 L 97 99 07/28/18 07:37 Temperature Pulse Rate 104 H Respiratory Rate 16 Blood Pressure Pulse Oximetry 99 Intake & Output 07/27/18 07/28/18 07/28/18 18:59 06:59 18:59 Intake Total 250 / 250 953 / 953 50 / 50 Balance 250 / 250 953 / 953 50 / 50 Weight 53.9 kg Intake: IV 250 / 250 50 / 50 50 / 50 Azithromycin Inj 500 MG In NS 250 / 250 Inj 250 ML @ 250 mls/hr IV.SIG Q24H [facility] Rx#:[id number] Zosyn 2.25 GM Premix 50 ML @ 50 / 50 50 / 50 100 mls/hr IV.SIG Q12H [facility] Rx#: [id number] Oral 903 / 903 Other: Date of Last Bowel Movement 07/27/18 07/27/18 Narrative: GENERAL: Alert and oriented. SKIN: Warm and dry. Left IJ permacath HEAD: Normocephalic. EYES: No scleral icterus. No injection or drainage. NECK: Supple, trachea midline. No JVD or lymphadenopathy. CARDIOVASCULAR: Regular rate and rhythm without murmurs, gallops, or rubs. RESPIRATORY: Breath sounds equal bilaterally. No accessory muscle use. GASTROINTESTINAL: Abdomen soft, non-tender, nondistended. MUSCULOSKELETAL: No cyanosis, or edema. BACK: Nontender without obvious deformity. No CVA tenderness. - Urinary Catheter Management Straight Cath placed during this visit: yes Reason for continuing: Not indwelling catheter Insertion date: 07/21/18 Insertion time: 13:16 <Marcy Gardner - Last Filed: 07/28/18 09:46> Vital signs: Vital Signs 07/27/18 19:50 07/27/18 20:00 07/27/18 21:49 Temperature 98.8 F Pulse Rate 113 H 93 H Respiratory Rate 20 18 16 Blood Pressure 102/53 L Pulse Oximetry 93 L 96 93 L 07/28/18 00:00 07/28/18 04:00 07/28/18 07:37 Temperature 98.6 F 98.8 F Pulse Rate 105 H 100 H 104 H Respiratory Rate 16 16 16 Blood Pressure 86/46 L 112/54 L Pulse Oximetry 97 99 99 07/28/18 08:00 07/28/18 12:00 07/28/18 14:26 Temperature 99.7 F H 98.2 F Pulse Rate 110 H 95 H 94 H Respiratory Rate 14 14 16 Blood Pressure 109/95 H 109/58 L Pulse Oximetry 95 98 07/28/18 16:00 Temperature 99.7 F H Pulse Rate 102 H Respiratory Rate 14 Blood Pressure 129/62 Pulse Oximetry 95 Intake & Output 07/27/18 07/28/18 07/28/18 18:59 06:59 18:59 Intake Total 250 / 250 953 / 953 50 / 50 Balance 250 / 250 953 / 953 50 / 50 Weight 53.9 kg Intake: IV 250 / 250 50 / 50 50 / 50 Azithromycin Inj 500 MG In NS 250 / 250 Inj 250 ML @ 250 mls/hr IV.SIG Q24H [facility] Rx#:[id number] Zosyn 2.25 GM Premix 50 ML @ 50 / 50 50 / 50 100 mls/hr IV.SIG Q12H [facility] Rx#: [id number] Oral 903 / 903 Other: Date of Last Bowel Movement 07/27/18 07/27/18 - Urinary Catheter Management Straight Cath placed during this visit: no <Juan Green - Last Filed: 07/28/18 18:06> Assessment and Plan - Assessment (1) End stage renal disease Code(s): N18.6 - End stage renal disease Status: Acute Plan: Continue with hemodialysis on Saturday, , and Saturday Avoid gadolinium and IVF administration. Recommend Left arm precautions- No Lab draws or B/P readings (L UE) Case management consulted to arrange outpatient hemodialysis at [facility] per patient request. Dr. Leal consulted for AVF access, will be done outpatient. save left arm for future AVF. Hemodialysis planned for tomorrow. Labs ordered for today. (2) Anemia Code(s): D64.9 - Anemia, unspecified Status: Acute Onset Date: ~05/22/18 Qualifiers: Anemia type: due to chronic kidney disease Chronic kidney disease stage: stage 5, not on chronic dialysis Qualified Code(s): N18.5 - Chronic kidney disease, stage 5; D63.1 - Anemia in chronic kidney disease Plan: HGB stable Epogen with dialysis. <Marcy Gardner - Last Filed: 07/28/18 09:46> - Assessment (1) End stage renal disease Code(s): N18.6 - End stage renal disease Status: Acute Plan: Patient seen and examined, agree with above. HD will be in AM. [place] oral intake, for placement. (2) Anemia Code(s): D64.9 - Anemia, unspecified Status: Acute Onset Date: ~05/22/18 Qualifiers: Anemia type: due to chronic kidney disease Chronic kidney disease stage: stage 5, not on chronic dialysis Qualified Code(s): N18.5 - Chronic kidney disease, stage 5; D63.1 - Anemia in chronic kidney disease <Juan Green - Last Filed: 07/28/18 18:06>
[2018-07-28 13:41] LABS: Hematocrit 23.5 % (39.0-51.0); Hemoglobin 7.4 gm/dL (13.0-17.0); Mean Corpuscular HGB Conc 31.6 % (32.0-36.0); Mean Corpuscular Hemoglobin 29.6 pg (27.0-34.0); Mean Corpuscular Volume 93.5 fL (80.0-100.0); Mean Platelet Volume 7.7 fL (7.0-11.0); Platelet Count 268 th/mm3 (150-450); Red Blood Count 2.51 mil/mm3 (4.50-5.90); Red Cell Distribution Width 16.9 % (11.6-17.2); White Blood Count 8.4 th/mm3 (4.0-11.0)
[2018-07-28 13:59] LABS: Albumin 2.7 g/dL (3.4-5.0); Calcium 8.6 mg/dL (8.5-10.1); Carbon Dioxide 28.2 meq/L (21.0-32.0); Phosphorus 4.1 mg/dL (2.5-4.9); Potassium 3.9 meq/L (3.5-5.1)
--- NOTE | 2018-07-28 17:24 | P.PNFP ---
Subjective Interval history: doing well no new co Results - Labs Result diagrams: 07/28/18 13:24 07/28/18 13:24 Abnormal lab results 07/27/18 07/28/18 07/28/18 Range/Units 22:48 13:24 13:24 RBC 2.51 L (4.50-5.90) mil/mm3 Hgb 7.4 L (13.0-17.0) gm/dL Hct 23.5 L (39.0-51.0) % MCHC 31.6 L (32.0-36.0) % BUN 26 H (7-18) mg/dL Creatinine 8.13 H (0.60-1.30) mg/dL Estimated GFR 8 L (>89) mL/min POC Glucose 190 H (68-110) mg/dl Albumin 2.7 L (3.4-5.0) g/dL 07/28/18 Range/Units 16:15 RBC (4.50-5.90) mil/mm3 Hgb (13.0-17.0) gm/dL Hct (39.0-51.0) % MCHC (32.0-36.0) % BUN (7-18) mg/dL Creatinine (0.60-1.30) mg/dL Estimated GFR (>89) mL/min POC Glucose 117 H (68-110) mg/dl Albumin (3.4-5.0) g/dL Short CBC 07/28/18 Range/Units 13:24 WBC 8.4 (4.0-11.0) th/mm3 Hgb 7.4 L (13.0-17.0) gm/dL Hct 23.5 L (39.0-51.0) % Plt Count 268 (150-450) th/mm3 BMP 07/28/18 13:24 Sodium 141 Potassium 3.9 Chloride 101 Carbon Dioxide 28.2 BUN 26 H Creatinine 8.13 H Calcium 8.6 Liver Function 07/28/18 Range/Units 13:24 Albumin 2.7 L (3.4-5.0) g/dL Physical Exam Vital signs: Vital Signs 07/27/18 19:50 07/27/18 20:00 07/27/18 21:49 Temperature 98.8 F Pulse Rate 113 H 93 H Respiratory Rate 20 18 16 Blood Pressure 102/53 L Pulse Oximetry 93 L 96 93 L 07/28/18 00:00 07/28/18 04:00 07/28/18 07:37 Temperature 98.6 F 98.8 F Pulse Rate 105 H 100 H 104 H Respiratory Rate 16 16 16 Blood Pressure 86/46 L 112/54 L Pulse Oximetry 97 99 99 07/28/18 08:00 07/28/18 12:00 07/28/18 14:26 Temperature 99.7 F H 98.2 F Pulse Rate 110 H 95 H 94 H Respiratory Rate 14 14 16 Blood Pressure 109/95 H 109/58 L Pulse Oximetry 95 98 Intake & Output 07/27/18 07/28/18 07/28/18 18:59 06:59 18:59 Intake Total 250 / 250 953 / 953 50 / 50 Balance 250 / 250 953 / 953 50 / 50 Weight 53.9 kg Intake: IV 250 / 250 50 / 50 50 / 50 Azithromycin Inj 500 MG In NS 250 / 250 Inj 250 ML @ 250 mls/hr IV.SIG Q24H [facility] Rx#:[id number] Zosyn 2.25 GM Premix 50 ML @ 50 / 50 50 / 50 100 mls/hr IV.SIG Q12H [facility] Rx#: [id number] Oral 903 / 903 Other: Date of Last Bowel Movement 07/27/18 07/27/18 - Constitutional no acute distress - Routine HEENT Exam Head: Present: normocephalic, atraumatic Eye: Present: EOMI, PERRL ENT: Present: mucous membranes moist - Routine Neck Exam Present: supple - Routine Respiratory Exam Present: CTA bilaterally - Routine Cardiovascular Exam Present: RRR - Routine Abdominal Exam Present: soft, normoactive bowel sounds - Urinary Catheter Management Straight Cath placed during this visit: yes Reason for continuing: Not indwelling catheter Insertion date: 07/21/18 Insertion time: 13:16 Assessment and Plan - Assessment (1) End stage renal disease Code(s): N18.6 - End stage renal disease Status: Acute Plan: Patient had dialysis yesterday and is off today. Now with ESRD on HD per renal. Consult pending for AVF. (2) Syncope and collapse Code(s): R55 - Syncope and collapse Status: Acute Plan: Meds adjusted, Cont to monitor BP for hypotension. He received a bolus of fluid for low BP early yesterday. (3) Acute exacerbation of COPD with asthma Code(s): J44.1 - Chronic obstructive pulmonary disease with (acute) exacerbation ; J45.901 - Unspecified asthma with (acute) exacerbation Status: Acute Onset Date: ~05/22/18 Plan: Oxygen supplement, bronchodilators. Breathing without C/O SOB. (4) Hypertension Code(s): I10 - Essential (primary) hypertension Status: Chronic Plan: Hypotension responded to bolus IVF. Cont to monitor (5) Pneumonia Code(s): J18.9 - Pneumonia, unspecified organism Status: Acute Plan: ID following, Cont IV Azithromycin, Zosyn, Bronchodilators, Oxygen supplement. Will have swallow eval completed. - Assessment and Plan 07/23/18- Seen this am, he has been running temp 100.3 yesterday and this am 99.7. Blood cultures pending. he is again unsure if he want to continue Dialyses Will consult palliative care. - Agreeable to HD after second opinion. ID consulted for Unknown orgin fever, workup in process. Flu negative, BC negative x 2 days. Started on vanco, cefepime, Azithromycin. DR Milian consulted for AVF. case management consulted fore placement 07/25/18- Seen this am, he is more alert, sat's are maintained on [address] shows small nodule and infiltrate in RML And RLL. Blood cultures with no growth x 2 days. Negative influenza. Had episode yesterday of increased confusion,Ct head negative, Mri, Mra negative , EEG negative. He continues to proceed with Dialysis, Vascular seen order for No Lab stick or BP in left UE.CM working on lupillo placement. 07/26/18 - Now on dialysis and without complaints. If BP remains low, will need Midodrine to support. Will F/U renal and ID recommendations. Vascular access as an outpatient per VS. 07/27/18 - He is concerned about D/C and wants to go [facility] than [facility]. ID following and monitoring antibiotic therapy and cultures. Presume he will be referred for AVF as an outpatient after infection resolved and cleared by ID. 07/28 hgb 7.4 begining dialysis will ck cbc am (4) Hypertension Qualifiers: Hypertension type: essential hypertension Qualified Code(s): I10 - Essential (primary) hypertension (5) Pneumonia Qualifiers: Laterality: right Lung location: lower lobe of lung
[2018-07-28 20:27] LABS: Hematocrit 23.6 % (39.0-51.0); Hemoglobin 7.7 gm/dL (13.0-17.0); Mean Corpuscular HGB Conc 32.7 % (32.0-36.0); Mean Corpuscular Hemoglobin 30.8 pg (27.0-34.0); Mean Corpuscular Volume 94.1 fL (80.0-100.0); Mean Platelet Volume 7.6 fL (7.0-11.0); Platelet Count 303 th/mm3 (150-450); Red Blood Count 2.51 mil/mm3 (4.50-5.90); Red Cell Distribution Width 17.2 % (11.6-17.2)
[2018-07-29] MEDS: Piperacil/Tazo 2.25 GM Premix 50 ML IV.SIG SCH ×2 (06:18→17:52)
[2018-07-29] MEDS: Insulin NovoLOG Aspart Correctional Sugar Inj SQ SCH ×3 (09:38→17:51)
[2018-07-29] MEDS: Senna/Docusate Sodium 8.6/50 MG Tablet PO SCH (09:39)
--- NOTE | 2018-07-29 09:44 | P.PNNP ---
Subjective Interval history: Seen during hemodialysis. Resting comfortably with no complaints. <Marcy Gardner - Last Filed: 07/29/18 15:28> Physical Exam Vital signs: Vital Signs 07/28/18 12:00 07/28/18 14:26 07/28/18 16:00 Temperature 98.2 F 99.7 F H Pulse Rate 95 H 94 H 102 H Respiratory Rate 14 16 14 Blood Pressure 109/58 L 129/62 Pulse Oximetry 98 95 07/28/18 20:00 07/28/18 22:30 07/29/18 00:00 Temperature 99.4 F 97.7 F Pulse Rate 109 H 108 H 69 Respiratory Rate 18 16 18 Blood Pressure 119/60 115/58 L Pulse Oximetry 96 94 L 07/29/18 03:50 Temperature 98.2 F Pulse Rate 108 H Respiratory Rate 18 Blood Pressure 129/73 Pulse Oximetry 94 L Intake & Output 07/28/18 07/29/18 07/29/18 18:59 06:59 18:59 Intake Total 100 / 100 1184 / 1184 Balance 100 / 100 1184 / 1184 Weight 52.2 kg Intake: IV 100 / 100 300 / 300 Azithromycin Inj 500 MG In NS 250 / 250 Inj 250 ML @ 250 mls/hr IV.SIG Q24H [facility] Rx#:[id number] Zosyn 2.25 GM Premix 50 ML @ 100 / 100 50 / 50 100 mls/hr IV.SIG Q12H [facility] Rx#: [id number] Oral 884 / 884 Other: # Voids 1 # Incontinent Voids 1 Date of Last Bowel Movement 07/27/18 Narrative: GENERAL: Alert and oriented. SKIN: Warm and dry. Left IJ permacath HEAD: Normocephalic. EYES: No scleral icterus. No injection or drainage. NECK: Supple, trachea midline. No JVD or lymphadenopathy. CARDIOVASCULAR: Regular rate and rhythm without murmurs, gallops, or rubs. RESPIRATORY: Breath sounds equal bilaterally. No accessory muscle use. GASTROINTESTINAL: Abdomen soft, non-tender, nondistended. MUSCULOSKELETAL: No cyanosis, or edema. BACK: Nontender without obvious deformity. No CVA tenderness. - Urinary Catheter Management Straight Cath placed during this visit: yes Reason for continuing: Not indwelling catheter Insertion date: 07/21/18 Insertion time: 13:16 <Marcy Gardner - Last Filed: 07/29/18 15:28> Vital signs: Vital Signs 07/28/18 20:00 07/28/18 22:30 07/29/18 00:00 Temperature 99.4 F 97.7 F Pulse Rate 109 H 108 H 69 Respiratory Rate 18 16 18 Blood Pressure 119/60 115/58 L Pulse Oximetry 96 94 L 07/29/18 03:50 07/29/18 08:00 07/29/18 12:00 Temperature 98.2 F 99 F 100.1 F H Pulse Rate 108 H 114 H 126 H Respiratory Rate 18 20 20 Blood Pressure 129/73 134/77 119/59 L Pulse Oximetry 94 L 95 96 07/29/18 16:00 Temperature 99.4 F Pulse Rate 122 H Respiratory Rate 20 Blood Pressure 118/59 L Pulse Oximetry 99 Intake & Output 07/28/18 07/29/18 07/29/18 18:59 06:59 18:59 Intake Total 100 / 100 1184 / 1184 100 / 100 Output Total 1000 / 1000 Balance 100 / 100 1184 / 1184 -900 / -900 Weight 52.2 kg Intake: IV 100 / 100 300 / 300 100 / 100 Flexbumin 25% Inj 100 ML @ 60 100 / 100 mls/hr IV.SIG WITH DIALYSIS PRN Rx#:[id number] Azithromycin Inj 500 MG In NS 250 / 250 Inj 250 ML @ 250 mls/hr IV.SIG Q24H [facility] Rx#:[id number] Zosyn 2.25 GM Premix 50 ML @ 100 / 100 50 / 50 100 mls/hr IV.SIG Q12H [facility] Rx#: [id number] Oral 884 / 884 Output: Hemodialysis Amount 1000 / 1000 Other: # Voids 1 # Incontinent Voids 1 Date of Last Bowel Movement 07/27/18 07/28/18 - Urinary Catheter Management Straight Cath placed during this visit: no <Juan Green - Last Filed: 07/29/18 18:20> Assessment and Plan - Assessment (1) End stage renal disease Code(s): N18.6 - End stage renal disease Status: Acute Plan: Continue with hemodialysis on Saturday, , and Saturday Avoid gadolinium and IVF administration. Recommend Left arm precautions- No Lab draws or B/P readings (L UE) Dr. Leal consulted for AVF access, will be done outpatient. 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 Labs in AM (2) Anemia Code(s): D64.9 - Anemia, unspecified Status: Acute Onset Date: ~05/22/18 Qualifiers: Anemia type: due to chronic kidney disease Chronic kidney disease stage: stage 5, not on chronic dialysis Qualified Code(s): N18.5 - Chronic kidney disease, stage 5; D63.1 - Anemia in chronic kidney disease Plan: HGB stable Epogen with dialysis. Anemia panel in AM <Marcy Gardner - Last Filed: 07/29/18 15:28> - Assessment (1) End stage renal disease Code(s): N18.6 - End stage renal disease Status: Acute Plan: Patient seen and examined, agree with above. Encourage oral intake. HD done today. (2) Anemia Code(s): D64.9 - Anemia, unspecified Status: Acute Onset Date: ~05/22/18 Qualifiers: Anemia type: due to chronic kidney disease Chronic kidney disease stage: stage 5, not on chronic dialysis Qualified Code(s): N18.5 - Chronic kidney disease, stage 5; D63.1 - Anemia in chronic kidney disease <Juan Green - Last Filed: 07/29/18 18:20>
[2018-07-29] MEDS: Albumin Human 25% Inj 100 ML IV.SIG PRN (10:10)
[2018-07-29] MEDS: Heparin 10,000 UNITS/10 ML Vial (for IV use) OTHER PRN (11:45)
[2018-07-29] MEDS: Azithromycin Inj 500 MG in Sodium Chlor 0.9% Inj 250 ML IV.SIG SCH (12:51)
--- NOTE | 2018-07-29 17:51 | P.PNPAL ---
Reason for Visit Reason for visit: a. To assist with evaluation and management of symptoms including: Pain, debility b. To assist medical decision maker(s) with: better understanding of current medical conditions; weighing benefits/burdens of medical treatment options; making medical treatment decisions. Subjective Subjective/Interval History: Follow up visit for symptom management and clarification of medical treatment goals. Patient seen and assessed in room 1524 after dialysis earlier today. No family/friends at bedside. Patient has no complaints; denies pain on exam. PRN acetaminophen with codeine is available every 4 hours; no PRN doses were administered in the past 24 hours. VSS: Pulse 122, respirations 20, BP 118/59, temperature 99.4, oxygen saturation stable on 2 L via nasal cannula. Spoke with case work aide. Patient will go to [facility] upon discharge; he will continue outpatient hemodialysis on /Sat. at [facility]. Dr. Leal has been consulted for AVF access which will be done outpatient. Advance Directives Health Care Surrogate Name and Number: Verbal designation of Nolvia vasquez, as the healthcare surrogate de Objective Vital Signs: Vital Signs 07/28/18 20:00 07/28/18 22:30 07/29/18 00:00 Temperature 99.4 F 97.7 F Pulse Rate 109 H 108 H 69 Respiratory Rate 18 16 18 Blood Pressure 119/60 115/58 L Pulse Oximetry 96 94 L 07/29/18 03:50 07/29/18 08:00 07/29/18 12:00 Temperature 98.2 F 99 F 100.1 F H Pulse Rate 108 H 114 H 126 H Respiratory Rate 18 20 20 Blood Pressure 129/73 134/77 119/59 L Pulse Oximetry 94 L 95 96 07/29/18 16:00 Temperature 99.4 F Pulse Rate 122 H Respiratory Rate 20 Blood Pressure 118/59 L Pulse Oximetry 99 Intake & Output 07/28/18 07/29/18 07/29/18 18:59 06:59 18:59 Intake Total 100 / 100 1184 / 1184 100 / 100 Output Total 1000 / 1000 Balance 100 / 100 1184 / 1184 -900 / -900 Weight 52.2 kg Intake: IV 100 / 100 300 / 300 100 / 100 Flexbumin 25% Inj 100 ML @ 60 100 / 100 mls/hr IV.SIG WITH DIALYSIS PRN Rx#:[id number] Azithromycin Inj 500 MG In NS 250 / 250 Inj 250 ML @ 250 mls/hr IV.SIG Q24H [facility] Rx#:[id number] Zosyn 2.25 GM Premix 50 ML @ 100 / 100 50 / 50 100 mls/hr IV.SIG Q12H [facility] Rx#: [id number] Oral 884 / 884 Output: Hemodialysis Amount 1000 / 1000 Other: # Voids 1 # Incontinent Voids 1 Date of Last Bowel Movement 07/27/18 07/28/18 Physical Exam: CONSTITUTIONAL/GENERAL: This is a frail, cachectic appearing elderly male patient in no acute distress TUBES/LINES/DRAINS: Right chest permacath SKIN: No jaundice, rashes, or lesions. Ecchymoses on upper extremities. No wounds seen anteriorly. Skin temperature appropriate. Not diaphoretic. HEAD: Atraumatic. Normocephalic. EYES: Pupils equal and round and reactive. Extraocular motions intact. No scleral icterus. No injection or drainage. Fundi not examined. ENT: Hearing grossly normal. Nose without bleeding or purulent drainage. Oral mucosa moist. NECK: Trachea midline. Supple, nontender. No palpable thyroid enlargement or nodularity. CARDIOVASCULAR: Regular rate and rhythm without murmurs, gallops, or rubs. No JVD. Peripheral pulses symmetric. RESPIRATORY/CHEST: Symmetric, unlabored respirations. Clear to auscultation. Breath sounds diminished at bases bilaterally. No accessory muscle use GASTROINTESTINAL: Abdomen soft, non-tender, nondistended. No guarding. Bowel sounds present. GENITOURINARY: Without palpable bladder distension. MUSCULOSKELETAL: Extremities without clubbing, cyanosis, or edema. LYMPHATICS: No palpable cervical or supraclavicular adenopathy. NEUROLOGICAL: Awake and alert. Lethargic. Answers questions; follows commands. Able to make needs known. PSYCHIATRIC: No obvious anxiety/depression. No apparent hallucinations or other psychotic thought process. Diagnostic Tests Laboratory: Laboratory Results - last 72 hr 07/26/18 07/26/18 07/26/18 22:49 22:54 22:57 WBC RBC Hgb Hct MCV MCH MCHC RDW Plt Count MPV Hematology Comments Sodium Potassium Chloride Carbon Dioxide Anion Gap BUN Creatinine Estimated GFR POC Glucose 58 L 50 L 82 Random Glucose Calcium Phosphorus Albumin 07/27/18 07/27/18 07/27/18 07:32 11:56 16:28 WBC RBC Hgb Hct MCV MCH MCHC RDW Plt Count MPV Hematology Comments Sodium Potassium Chloride Carbon Dioxide Anion Gap BUN Creatinine Estimated GFR POC Glucose 196 H 115 H 167 H Random Glucose Calcium Phosphorus Albumin 07/27/18 07/28/18 07/28/18 22:48 07:51 11:22 WBC RBC Hgb Hct MCV MCH MCHC RDW Plt Count MPV Hematology Comments Sodium Potassium Chloride Carbon Dioxide Anion Gap BUN Creatinine Estimated GFR POC Glucose 190 H 89 109 Random Glucose Calcium Phosphorus Albumin 07/28/18 07/28/18 07/28/18 13:24 13:24 16:15 WBC 8.4 RBC 2.51 L Hgb 7.4 L Hct 23.5 L MCV 93.5 MCH 29.6 MCHC 31.6 L RDW 16.9 Plt Count 268 MPV 7.7 Hematology Comments Sodium 141 Potassium 3.9 Chloride 101 Carbon Dioxide 28.2 Anion Gap 12 BUN 26 H Creatinine 8.13 H Estimated GFR 8 L POC Glucose 117 H Random Glucose 84 Calcium 8.6 Phosphorus 4.1 Albumin 2.7 L 07/28/18 07/28/18 07/29/18 19:50 20:48 07:41 WBC 9.0 RBC 2.51 L Hgb 7.7 L Hct 23.6 L MCV 94.1 MCH 30.8 MCHC 32.7 RDW 17.2 Plt Count 303 MPV 7.6 Hematology Comments Sodium Potassium Chloride Carbon Dioxide Anion Gap BUN Creatinine Estimated GFR POC Glucose 141 H 112 H Random Glucose Calcium Phosphorus Albumin 07/29/18 07/29/18 11:30 17:25 WBC RBC Hgb Hct MCV MCH MCHC RDW Plt Count MPV Hematology Comments Sodium Potassium Chloride Carbon Dioxide Anion Gap BUN Creatinine Estimated GFR POC Glucose 93 139 H Random Glucose Calcium Phosphorus Albumin Result Diagrams: 07/28/18 19:50 07/28/18 13:24 Microbiology: Microbiology 07/23/18 20:25 Aerobic Blood Culture - Final Blood - Peripheral No growth in 5 days Anaerobic Blood Culture - Final No growth in 5 days 07/23/18 20:31 Aerobic Blood Culture - Final Blood - Peripheral No growth in 5 days Anaerobic Blood Culture - Final No growth in 5 days 07/22/18 19:25 Aerobic Blood Culture - Final Blood - Peripheral No growth in 5 days Anaerobic Blood Culture - Final No growth in 5 days Imaging: Cervical Spine CT 07/21/18 11:36 CONCLUSION: 1. No evidence of acute fracture, traumatic listhesis or significant soft tissue abnormality. 2. Severe degenerative disc disease with collapse of the disc and partial ankylosis at C3-4, C4-5 and C5-6. 3. Severe degenerative disc disease at C6-7 with foraminal encroachment. 4. Severe atlantoaxial degenerative disease 5. Reversal of normal cervical lordosis and mild degenerative anterolisthesis at C3-4. Upper Extremity Ultrasound 07/23/18 00:00 CONCLUSION: 1. Venous mapping study as described. Venous Doppler Study 07/23/18 00:00 CONCLUSION: 1. Negative exam with no evidence of deep venous thrombosis. Chest CT 07/24/18 00:00 CONCLUSION: 1. Patchy parenchymal infiltrates and small effusions. 2. Irregular nodules are identified in the left upper lobe. The dominant nodule is stable. The nodule just superior to this is a new finding. Head CT 07/24/18 15:38 CONCLUSION: 1. Negative CT Head non contrast. . Head MRI 07/25/18 07:03 CONCLUSION: 1. No acute intracranial findings. 2. Age-related findings. 3. Severe degenerative findings of the cervical spine. Head MRA 07/25/18 20:59 CONCLUSION: Brain MRA within normal limits. Chest X-Ray 07/27/18 06:00 CONCLUSION: 1. No significant interval change with patchy right midlung airspace consolidation. Assessment and Plan - Disease Oriented Problem List (1) Acute kidney failure (2) Hydronephrosis (3) Acute exacerbation of COPD with asthma - Symptom Scale (1) Debility, unspecified (2) Pain Comment: Denies pain on exam. PRN Tylenol with codeine is available every 4 hours for pain but has not been utilized in the past 24 hours. Pertinent Non-Medical Issues: Psychosocial: Patient was born and raised in [place]. He is not . He states he has 7 adult children. 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 Spiritual: Evangelical best. Legal: Verbally designated his niece (Gabriela) as the HCS; conversation witness. Will f/u today. Need signature and contact information Ethical issues impacting care: No known ethical issues impacting care. Important Contacts: Nolvia Rogers, niece/HCS: [phone] or [phone] Julee Beavers, sister: [phone] Prognosis: Patient is a frail, elderly male patient who appears to be significantly debilitated. He has a complex medical history including end-stage renal and was recently started on dialysis. Patient has not been accepting of HD. Given patient advanced age, multiple co-morbidities and poor functioning, he is at risk for decline/complications. Patient will from terminal renal failure without hemodialysis. Code Status: Full Code Plan: * FULL CODE * Decision-making: Patient has designated his niece, Nolvia, as his healthcare surrogate decision-maker. * Spoke with case work aide. Patient will be going to [facility] upon discharge; he will continue outpatient hemodialysis on /Sat. at [facility]. Dr. Leal has been consulted for AVF access which will be done outpatient. * Symptom management: = Pain: Patient c/o chronic pain in his neck that can be severe at time as well as pain/numbness in his legs. He denies pain on exam. CT cervical spine showed severe degenerative disc disease; no evidence of acute fractures,traumatic listhesis or significant soft tissue abnormality. Acetaminophen/codeine is available every 4 hours as needed for pain but has not been utilized in the past 24 hours = Debility: Patient presented to ED with complaints of generalized weakness with recent associated falls. He is frail and his rib cage is easily visible. Physical therapy was consulted. Patient will go to [facility] when stable for discharge * Palliative care will follow the patient throughout his hospitalization to establish trust, assist with symptom management and clarification of medical treatment goals.
--- NOTE | 2018-07-29 19:31 | P.PNID ---
Subjective Remarks: fully awake afebrile no cough, blood clx remain negatrive final Antibiotics: zosyn azithro Allergies/Adverse Reactions: Allergies No Known Allergies Allergy (Unverified 07/21/18 11:29) Objective Vital Signs 07/28/18 20:00 07/28/18 22:30 07/29/18 00:00 Temperature 99.4 F 97.7 F Pulse Rate 109 H 108 H 69 Respiratory Rate 18 16 18 Blood Pressure 119/60 115/58 L Pulse Oximetry 96 94 L 07/29/18 03:50 07/29/18 08:00 07/29/18 12:00 Temperature 98.2 F 99 F 100.1 F H Pulse Rate 108 H 114 H 126 H Respiratory Rate 18 20 20 Blood Pressure 129/73 134/77 119/59 L Pulse Oximetry 94 L 95 96 07/29/18 16:00 Temperature 99.4 F Pulse Rate 122 H Respiratory Rate 20 Blood Pressure 118/59 L Pulse Oximetry 99 Intake & Output 07/29/18 07/29/18 07/30/18 06:59 18:59 06:59 Intake Total 1184 / 1184 100 / 100 Output Total 1001 / 1001 Balance 1184 / 1184 -901 / -901 - Weight 52.2 kg Intake: IV 300 / 300 100 / 100 Flexbumin 25% Inj 100 ML @ 60 100 / 100 mls/hr IV.SIG WITH DIALYSIS PRN Rx#:[id number] Azithromycin Inj 500 MG In NS 250 / 250 Inj 250 ML @ 250 mls/hr IV.SIG Q24H [facility] Rx#:[id number] Zosyn 2.25 GM Premix 50 ML @ 50 / 50 100 mls/hr IV.SIG Q12H [facility] Rx#: [id number] Oral 884 / 884 Output: Stool Hemodialysis Amount 1000 / 1000 Other: # Incontinent Voids 1 Date of Last Bowel Movement 07/27/18 07/29/18 07/29/18 07/23/18 20:25 Blood - Peripheral Aerobic Blood Culture - Final No growth in 5 days 07/23/18 20:25 Blood - Peripheral Anaerobic Blood Culture - Final No growth in 5 days 07/23/18 20:31 Blood - Peripheral Aerobic Blood Culture - Final No growth in 5 days 07/23/18 20:31 Blood - Peripheral Anaerobic Blood Culture - Final No growth in 5 days 07/22/18 19:25 Blood - Peripheral Aerobic Blood Culture - Final No growth in 5 days 07/22/18 19:25 Blood - Peripheral Anaerobic Blood Culture - Final No growth in 5 days Lab - Hematology Results 07/28/18 07/28/18 13:24 19:50 WBC 8.4 9.0 RBC 2.51 L 2.51 L Hgb 7.4 L 7.7 L Hct 23.5 L 23.6 L MCV 93.5 94.1 MCH 29.6 30.8 MCHC 31.6 L 32.7 RDW 16.9 17.2 Plt Count 268 303 MPV 7.7 7.6 Hematology Comments Lab - Chemistry Results 07/27/18 07/28/18 07/28/18 22:48 07:51 11:22 Sodium Potassium Chloride Carbon Dioxide Anion Gap BUN Creatinine Estimated GFR POC Glucose 190 H 89 109 Random Glucose Calcium Phosphorus Albumin 07/28/18 07/28/18 07/28/18 13:24 16:15 20:48 Sodium 141 Potassium 3.9 Chloride 101 Carbon Dioxide 28.2 Anion Gap 12 BUN 26 H Creatinine 8.13 H Estimated GFR 8 L POC Glucose 117 H 141 H Random Glucose 84 Calcium 8.6 Phosphorus 4.1 Albumin 2.7 L 07/29/18 07/29/18 07/29/18 07:41 11:30 17:25 Sodium Potassium Chloride Carbon Dioxide Anion Gap BUN Creatinine Estimated GFR POC Glucose 112 H 93 139 H Random Glucose Calcium Phosphorus Albumin Imaging: ITS Impressions Cervical Spine CT 07/21/18 11:36 CONCLUSION: 1. No evidence of acute fracture, traumatic listhesis or significant soft tissue abnormality. 2. Severe degenerative disc disease with collapse of the disc and partial ankylosis at C3-4, C4-5 and C5-6. 3. Severe degenerative disc disease at C6-7 with foraminal encroachment. 4. Severe atlantoaxial degenerative disease 5. Reversal of normal cervical lordosis and mild degenerative anterolisthesis at C3-4. Upper Extremity Ultrasound 07/23/18 00:00 CONCLUSION: 1. Venous mapping study as described. Venous Doppler Study 07/23/18 00:00 CONCLUSION: 1. Negative exam with no evidence of deep venous thrombosis. Chest CT 07/24/18 00:00 CONCLUSION: 1. Patchy parenchymal infiltrates and small effusions. 2. Irregular nodules are identified in the left upper lobe. The dominant nodule is stable. The nodule just superior to this is a new finding. Head CT 07/24/18 15:38 CONCLUSION: 1. Negative CT Head non contrast. . Head MRI 07/25/18 07:03 CONCLUSION: 1. No acute intracranial findings. 2. Age-related findings. 3. Severe degenerative findings of the cervical spine. Head MRA 07/25/18 20:59 CONCLUSION: Brain MRA within normal limits. Chest X-Ray 07/27/18 06:00 CONCLUSION: 1. No significant interval change with patchy right midlung airspace consolidation. Physical Exam: GENERAL: no distress, fully awake ill apparing cachectic SKIN: Warm and dry. NO rash ENT: No nasal bleeding or discharge. Mucous membranes moist CARDIOVASCULAR: Regular rate and rhythm. RESPIRATORY: Tachypneic. very few b/l rhonchi to auscultation. Breath sounds decreased GASTROINTESTINAL: Abdomen soft, non-tender, nondistended. Hepatic and splenic margins not palpable. MUSCULOSKELETAL: Extremities without clubbing, cyanosis, or edema. NEUROLOGICAL: awke, follows commands. No obvious cranial nerve deficits. moves all 4 extremeties PSYCHIATRIC: calm, cooperative Assessment and Plan - Plan ESRD on HD thru Permcath placed few months ago Fever - up to 102 - resolved source likely PNA - suspected PNA, clinically improved on zosyn, azithro HD cath infection? flu negative PNA: improved PLAN: complete azithro, zosyn repeat CX in am anticipate dc on no abx
[2018-07-30] MEDS: Senna/Docusate Sodium 8.6/50 MG Tablet PO SCH ×3 (00:36→21:20)
[2018-07-30] MEDS: Insulin NovoLOG Aspart Correctional Sugar Inj SQ SCH ×4 (00:36→17:42)
[2018-07-30 06:06] LABS: Albumin 3.1 g/dL (3.4-5.0); Calcium 8.5 mg/dL (8.5-10.1); Carbon Dioxide 32.5 meq/L (21.0-32.0); Phosphorus 4.4 mg/dL (2.5-4.9); Potassium 4.1 meq/L (3.5-5.1)
[2018-07-30] MEDS: Piperacil/Tazo 2.25 GM Premix 50 ML IV.SIG SCH (06:33)
[2018-07-30 06:51] LABS: Baso # (Auto) 0.1 th/mm3 (0.0-0.2); Baso % (Auto) 0.6 % (0.0-2.0); Eos # (Auto) 0.1 th/mm3 (0.0-0.4); Eos % (Auto) 0.8 % (0.0-4.0); Hematocrit 24.3 % (39.0-51.0); Hemoglobin 7.9 gm/dL (13.0-17.0); Lymph # (Auto) 0.6 th/mm3 (1.0-4.8); Lymph % (Auto) 6.5 % (9.0-44.0); Mean Corpuscular HGB Conc 32.6 % (32.0-36.0); Mean Corpuscular Hemoglobin 30.4 pg (27.0-34.0); Mean Corpuscular Volume 93.2 fL (80.0-100.0); Mean Platelet Volume 7.6 fL (7.0-11.0); Neut # (Auto) 7.9 th/mm3 (1.8-7.7); Neut % (Auto) 82.1 % (16.0-70.0); Platelet Count 325 th/mm3 (150-450); Red Blood Count 2.61 mil/mm3 (4.50-5.90); Red Cell Distribution Width 16.2 % (11.6-17.2); White Blood Count 9.6 th/mm3 (4.0-11.0)
--- NOTE | 2018-07-30 09:50 | XR ---
EXAM DATE: 07/30/2018 9:41 AM EDT AGE/SEX: 82 years / Male INDICATIONS: Short of breath. CLINICAL DATA: This is the patient's subsequent encounter. Patient reports that signs and symptoms h ave been present for 4 - 6 days and indicates a pain score of 0/10. MEDICAL/SURGICAL HISTORY: Chronic obstructive pulmonary disease. Hypertension. Renal disease, end stage. . dialysis catheter COMPARISON: [facility], CHEST 1V SINGLE AP, 07/27/2018. . FINDINGS: Stable right IJ dialysis catheter in place. Persistent patchy airspace disease in the right midlung. Cardiomediastinal contours are stable. Remainder of the exam is unchanged. CONCLUSION: 1. Stable patchy airspace disease in the right midlung. Electronically signed by: Ben Slater MD 07/30/2018 9:48 AM EDT
--- NOTE | 2018-07-30 11:07 | P.PNNP ---
Subjective Interval history: Resting on side. Hemodialysis yesterday tolerated well. Low grade temp last night. <Marcy Gardner - Last Filed: 07/30/18 11:04> Physical Exam Vital signs: Vital Signs 07/29/18 12:00 07/29/18 16:00 07/29/18 19:32 Temperature 100.1 F H 99.4 F Pulse Rate 126 H 122 H Respiratory Rate 20 20 Blood Pressure 119/59 L 118/59 L Pulse Oximetry 96 99 99 07/29/18 20:00 07/30/18 00:00 07/30/18 04:00 Temperature 100.3 F H 100 F H 99.4 F Pulse Rate 108 H 105 H 90 Respiratory Rate 20 20 20 Blood Pressure 110/56 L 110/57 L 133/63 Pulse Oximetry 93 L 93 L 100 07/30/18 08:00 07/30/18 10:19 Temperature 99.1 F Pulse Rate 97 H Respiratory Rate 12 Blood Pressure 148/69 H Pulse Oximetry 100 98 Intake & Output 07/29/18 07/30/18 07/30/18 18:59 06:59 18:59 Intake Total 100 / 100 300 / 300 50 / 50 Output Total 1001 / 1001 / Balance -901 / -901 299 / 299 50 / 50 Intake: IV 100 / 100 300 / 300 50 / 50 Flexbumin 25% Inj 100 ML @ 60 100 / 100 mls/hr IV.SIG WITH DIALYSIS PRN Rx#:[id number] Azithromycin Inj 500 MG In NS 250 / 250 Inj 250 ML @ 250 mls/hr IV.SIG Q24H [facility] Rx#:[id number] Zosyn 2.25 GM Premix 50 ML @ 50 / 50 50 / 50 100 mls/hr IV.SIG Q12H [facility] Rx#: [id number] Output: Stool Hemodialysis Amount 1000 / 1000 Other: # Voids 2 Date of Last Bowel Movement 07/29/18 07/29/18 07/30/18 # Bowel Movements 1 Narrative: GENERAL: Alert and oriented. SKIN: Warm and dry. Left IJ permacath HEAD: Normocephalic. EYES: No scleral icterus. No injection or drainage. NECK: Supple, trachea midline. No JVD or lymphadenopathy. CARDIOVASCULAR: Regular rate and rhythm without murmurs, gallops, or rubs. RESPIRATORY: Breath sounds equal bilaterally. No accessory muscle use. GASTROINTESTINAL: Abdomen soft, non-tender, nondistended. MUSCULOSKELETAL: No cyanosis, or edema. BACK: Nontender without obvious deformity. No CVA tenderness. - Urinary Catheter Management Straight Cath placed during this visit: yes Reason for continuing: Not indwelling catheter Insertion date: 07/21/18 Insertion time: 13:16 <Marcy Gardner - Last Filed: 07/30/18 11:04> Vital signs: Vital Signs 07/30/18 00:00 07/30/18 04:00 07/30/18 08:00 Temperature 100 F H 99.4 F 99.1 F Pulse Rate 105 H 90 97 H Respiratory Rate 20 20 12 Blood Pressure 110/57 L 133/63 148/69 H Pulse Oximetry 93 L 100 100 07/30/18 10:19 07/30/18 12:00 07/30/18 16:00 Temperature 101.1 F H 101.1 F H Pulse Rate 114 H 101 H Respiratory Rate 12 12 Blood Pressure 132/75 93/51 L Pulse Oximetry 98 100 82 L Intake & Output 07/30/18 07/30/18 07/31/18 06:59 18:59 06:59 Intake Total 300 / 300 50 / 50 Output Total / Balance 299 / 299 50 / 50 Intake: IV 300 / 300 50 / 50 Azithromycin Inj 500 MG In NS 250 / 250 Inj 250 ML @ 250 mls/hr IV.SIG Q24H [facility] Rx#:[id number] Zosyn 2.25 GM Premix 50 ML @ 50 / 50 50 / 50 100 mls/hr IV.SIG Q12H [facility] Rx#: [id number] Output: Stool Other: # Voids 2 Date of Last Bowel Movement 07/29/18 07/30/18 # Bowel Movements 1 - Urinary Catheter Management Straight Cath placed during this visit: no <Juan Green - Last Filed: 07/30/18 20:17> Assessment and Plan - Assessment (1) End stage renal disease Code(s): N18.6 - End stage renal disease Status: Acute Plan: Continue with hemodialysis on Saturday, , and Saturday Avoid gadolinium and IVF administration. Recommend Left arm precautions- No Lab draws or B/P readings (L UE) Dr. Leal consulted for AVF access, will be done outpatient. Hemodialysis yesterday tolerated well with removal of 1 liter of fluid Outpatient hemodialysis arranged for Saturday, , and Sat with chair time of 3:45 (2) Anemia Code(s): D64.9 - Anemia, unspecified Status: Acute Onset Date: ~05/22/18 Qualifiers: Anemia type: due to chronic kidney disease Chronic kidney disease stage: stage 5, not on chronic dialysis Qualified Code(s): N18.5 - Chronic kidney disease, stage 5; D63.1 - Anemia in chronic kidney disease Plan: HGB stable Epogen with dialysis. Iron stores adequate <Marcy Gardner - Last Filed: 07/30/18 11:04> - Assessment (1) End stage renal disease Code(s): N18.6 - End stage renal disease Status: Acute Plan: Patient seen and examined, agree with above. Out patient HD arranged. For D/C to Rehab. (2) Anemia Code(s): D64.9 - Anemia, unspecified Status: Acute Onset Date: ~05/22/18 Qualifiers: Anemia type: due to chronic kidney disease Chronic kidney disease stage: stage 5, not on chronic dialysis Qualified Code(s): N18.5 - Chronic kidney disease, stage 5; D63.1 - Anemia in chronic kidney disease <Juan Green - Last Filed: 07/30/18 20:17>
--- NOTE | 2018-07-30 12:52 | P.DS ---
Date of admission: 07/23/18 12:55 Primary care physician: UNKNOWN Brief History from admission: pt had syncopal episode when arising after eating yesterday DS: Diagnosis - Discharge Diagnosis (1) End stage renal disease Status: Acute (2) Syncope and collapse Status: Acute (3) Acute exacerbation of COPD with asthma Status: Acute (4) Hypertension Status: Chronic (5) Pneumonia Status: Acute DS: Summary Hospital Course: Patient was admitted for suspected syncopal episode. Neurology was consulted. CT of the head was negative for acute process. EMS reported patient was initially hypotensive with orthostatic changes. Nephrology Dr Granados consulted for HD, patient voiced he did believe that he need to continue dialysis, he wanted second opinion. Dr Green consulted, as well as pallitive care r/t him not wanting to continue dialyses. He finally agreed to dialysis, seen by vascular to set up for AV fistula as outpatient. He developed fever, ID consulted. BC negative, negative for Flu. He was treated with Iv vanco, azithro for PNA. Case management consulted for [facility]FW[facility] placement. DC to [facility] - Time Spent with Patient Total time spent providing and/or coordinating discharge services: 35 Greater than 30 minutes - Quality: AMI Clinical Trial Participant: No - Quality: Stroke Symptom Onset Unknown: No - Quality: VTE Is this test being ordered to rule out VTE?: No Deep Vein Thrombosis/Pulmonary Embolism Present on Admission: No Exam Vital signs: Vital Signs 07/29/18 16:00 07/29/18 19:32 07/29/18 20:00 Temperature 99.4 F 100.3 F H Pulse Rate 122 H 108 H Respiratory Rate 20 20 Blood Pressure 118/59 L 110/56 L Pulse Oximetry 99 99 93 L 07/30/18 00:00 07/30/18 04:00 07/30/18 08:00 Temperature 100 F H 99.4 F 99.1 F Pulse Rate 105 H 90 97 H Respiratory Rate 20 20 12 Blood Pressure 110/57 L 133/63 148/69 H Pulse Oximetry 93 L 100 100 07/30/18 10:19 Temperature Pulse Rate Respiratory Rate Blood Pressure Pulse Oximetry 98 Intake & Output 07/29/18 07/30/18 07/30/18 18:59 06:59 18:59 Intake Total 100 / 100 300 / 300 50 / 50 Output Total 1001 / 1001 Balance -901 / -901 299 / 299 50 / 50 Intake: IV 100 / 100 300 / 300 50 / 50 Flexbumin 25% Inj 100 ML @ 60 100 / 100 mls/hr IV.SIG WITH DIALYSIS PRN Rx#:[id number] Azithromycin Inj 500 MG In NS 250 / 250 Inj 250 ML @ 250 mls/hr IV.SIG Q24H [facility] Rx#:[id number] Zosyn 2.25 GM Premix 50 ML @ 50 / 50 50 / 50 100 mls/hr IV.SIG Q12H [facility] Rx#: [id number] Output: Stool Hemodialysis Amount 1000 / 1000 Other: # Voids 2 Date of Last Bowel Movement 07/29/18 07/29/18 07/30/18 # Bowel Movements 1 - Constitutional no acute distress - Routine HEENT Exam Eye: Present: PERRL ENT: Present: mucous membranes moist - Routine Neck Exam Present: supple - Routine Respiratory Exam Present: decreased breath sounds, rhonchi - Routine Cardiovascular Exam Present: S1, S2 - Routine Abdominal Exam Present: soft, normoactive bowel sounds - Routine Extremities Exam Present: edema - Routine Skin Exam Present: dry, warm - Routine Neurological Exam Present: alert, oriented X3 Results Procedures completed during hospitalization: dialysis Tues/Thurs/ Sat Labs on day of discharge: Labs from last 24 hours 07/30/18 07/30/18 07/30/18 11:56 07:27 05:20 WBC RBC Hgb Hct MCV MCH MCHC RDW Plt Count MPV Neut % (Auto) Lymph % (Auto) [place] % (Auto) Eos % (Auto) Baso % (Auto) Neut # (Auto) Lymph # (Auto) [place] # (Auto) Eos # (Auto) Baso # (Auto) WBC Differential Differential Comment Hematology Comments Sodium 142 Potassium 4.1 Chloride 101 Carbon Dioxide 32.5 H Anion Gap 9 BUN 20 H Creatinine 4.44 H Estimated GFR 16 L POC Glucose 106 99 Random Glucose 94 Calcium 8.5 Phosphorus 4.4 Ferritin 771 H Albumin 3.1 L 07/30/18 07/29/18 07/29/18 05:20 20:51 17:25 WBC 9.6 RBC 2.61 L Hgb 7.9 L Hct 24.3 L MCV 93.2 MCH 30.4 MCHC 32.6 RDW 16.2 Plt Count 325 MPV 7.6 Neut % (Auto) 82.1 H Lymph % (Auto) 6.5 L [place] % (Auto) 10.0 H Eos % (Auto) 0.8 Baso % (Auto) 0.6 Neut # (Auto) 7.9 H Lymph # (Auto) 0.6 L [place] # (Auto) 1.0 H Eos # (Auto) 0.1 Baso # (Auto) 0.1 WBC Differential . Differential Comment Auto diff final Hematology Comments Sodium Potassium Chloride Carbon Dioxide Anion Gap BUN Creatinine Estimated GFR POC Glucose 122 H 139 H Random Glucose Calcium Phosphorus Ferritin Albumin - Impressions ITS Impressions Cervical Spine CT 07/21/18 11:36 CONCLUSION: 1. No evidence of acute fracture, traumatic listhesis or significant soft tissue abnormality. 2. Severe degenerative disc disease with collapse of the disc and partial ankylosis at C3-4, C4-5 and C5-6. 3. Severe degenerative disc disease at C6-7 with foraminal encroachment. 4. Severe atlantoaxial degenerative disease 5. Reversal of normal cervical lordosis and mild degenerative anterolisthesis at C3-4. Upper Extremity Ultrasound 07/23/18 00:00 CONCLUSION: 1. Venous mapping study as described. Venous Doppler Study 07/23/18 00:00 CONCLUSION: 1. Negative exam with no evidence of deep venous thrombosis. Chest CT 07/24/18 00:00 CONCLUSION: 1. Patchy parenchymal infiltrates and small effusions. 2. Irregular nodules are identified in the left upper lobe. The dominant nodule is stable. The nodule just superior to this is a new finding. Head CT 07/24/18 15:38 CONCLUSION: 1. Negative CT Head non contrast. . Head MRI 07/25/18 07:03 CONCLUSION: 1. No acute intracranial findings. 2. Age-related findings. 3. Severe degenerative findings of the cervical spine. Head MRA 07/25/18 20:59 CONCLUSION: Brain MRA within normal limits. Chest X-Ray 07/30/18 06:00 CONCLUSION: 1. Stable patchy airspace disease in the right midlung. Discharge Plan - Discharge Disposition Patient Disposition: 03 Discharge to SNF - Discharge Condition Condition: Stable - Discharge Order Discharge Orders: Discharge Order (Routine); Ordered 07/30/18 Ordered By: Jocy Anguiano - Discharge Details Anticipated Discharge Date: 07/30/18 - Physicians Team Primary Care Provider: UNKNOWN, Attending Provider: Nishant Johnson Other Providers: Cee Granados MD ; Saleem Reilly MD, PhD ; Sukumar Jurado MD ; Juan Green MD ; Laureen Mariee MD ; Hubert Leal MD ; Lester Zavala,[place]
[2018-07-30] MEDS ORDERED: Acetaminophen 325 MG Tablet PO PRN (13:59)
--- NOTE | 2018-07-30 19:00 | P.PNID ---
Subjective Remarks: pt was ready to be d/c'd when he developped fever, liquid diarrea 2 liquid BMs/24 hrs Antibiotics: zosyn azithro ANC elevated Allergies/Adverse Reactions: Allergies No Known Allergies Allergy (Unverified 07/21/18 11:29) Objective Vital Signs 07/29/18 19:32 07/29/18 20:00 07/30/18 00:00 Temperature 100.3 F H 100 F H Pulse Rate 108 H 105 H Respiratory Rate 20 20 Blood Pressure 110/56 L 110/57 L Pulse Oximetry 99 93 L 93 L 07/30/18 04:00 07/30/18 08:00 07/30/18 10:19 Temperature 99.4 F 99.1 F Pulse Rate 90 97 H Respiratory Rate 20 12 Blood Pressure 133/63 148/69 H Pulse Oximetry 100 100 98 07/30/18 12:00 07/30/18 16:00 Temperature 101.1 F H 101.1 F H Pulse Rate 114 H 101 H Respiratory Rate 12 12 Blood Pressure 132/75 93/51 L Pulse Oximetry 100 82 L Intake & Output 07/29/18 07/30/18 07/30/18 18:59 06:59 18:59 Intake Total 100 / 100 300 / 300 50 / 50 Output Total 1001 / 1001 Balance -901 / -901 299 / 299 50 / 50 Intake: IV 100 / 100 300 / 300 50 / 50 Flexbumin 25% Inj 100 ML @ 60 100 / 100 mls/hr IV.SIG WITH DIALYSIS PRN Rx#:[id number] Azithromycin Inj 500 MG In NS 250 / 250 Inj 250 ML @ 250 mls/hr IV.SIG Q24H [facility] Rx#:[id number] Zosyn 2.25 GM Premix 50 ML @ 50 / 50 50 / 50 100 mls/hr IV.SIG Q12H [facility] Rx#: [id number] Output: Stool Hemodialysis Amount 1000 / 1000 Other: # Voids 2 Date of Last Bowel Movement 07/29/18 07/29/18 07/30/18 # Bowel Movements 1 07/30/18 17:26 Blood - Other Aerobic Blood Culture - Pending 07/30/18 17:26 Blood - Other Anaerobic Blood Culture - Pending 07/23/18 20:25 Blood - Peripheral Aerobic Blood Culture - Final No growth in 5 days 07/23/18 20:25 Blood - Peripheral Anaerobic Blood Culture - Final No growth in 5 days 07/23/18 20:31 Blood - Peripheral Aerobic Blood Culture - Final No growth in 5 days 07/23/18 20:31 Blood - Peripheral Anaerobic Blood Culture - Final No growth in 5 days Lab - Hematology Results 07/28/18 07/30/18 19:50 05:20 WBC 9.0 9.6 RBC 2.51 L 2.61 L Hgb 7.7 L 7.9 L Hct 23.6 L 24.3 L MCV 94.1 93.2 MCH 30.8 30.4 MCHC 32.7 32.6 RDW 17.2 16.2 Plt Count 303 325 MPV 7.6 7.6 Neut % (Auto) 82.1 H Lymph % (Auto) 6.5 L [place] % (Auto) 10.0 H Eos % (Auto) 0.8 Baso % (Auto) 0.6 Neut # (Auto) 7.9 H Lymph # (Auto) 0.6 L [place] # (Auto) 1.0 H Eos # (Auto) 0.1 Baso # (Auto) 0.1 WBC Differential . Differential Comment Auto diff final Hematology Comments Lab - Chemistry Results 07/28/18 07/29/18 07/29/18 20:48 07:41 11:30 Sodium Potassium Chloride Carbon Dioxide Anion Gap BUN Creatinine Estimated GFR POC Glucose 141 H 112 H 93 Random Glucose Calcium Phosphorus Ferritin Albumin 07/29/18 07/29/18 07/30/18 17:25 20:51 05:20 Sodium 142 Potassium 4.1 Chloride 101 Carbon Dioxide 32.5 H Anion Gap 9 BUN 20 H Creatinine 4.44 H Estimated GFR 16 L POC Glucose 139 H 122 H Random Glucose 94 Calcium 8.5 Phosphorus 4.4 Ferritin 771 H Albumin 3.1 L 07/30/18 07/30/18 07/30/18 07:27 11:56 17:41 Sodium Potassium Chloride Carbon Dioxide Anion Gap BUN Creatinine Estimated GFR POC Glucose 99 106 82 Random Glucose Calcium Phosphorus Ferritin Albumin Imaging: ITS Impressions Cervical Spine CT 07/21/18 11:36 CONCLUSION: 1. No evidence of acute fracture, traumatic listhesis or significant soft tissue abnormality. 2. Severe degenerative disc disease with collapse of the disc and partial ankylosis at C3-4, C4-5 and C5-6. 3. Severe degenerative disc disease at C6-7 with foraminal encroachment. 4. Severe atlantoaxial degenerative disease 5. Reversal of normal cervical lordosis and mild degenerative anterolisthesis at C3-4. Upper Extremity Ultrasound 07/23/18 00:00 CONCLUSION: 1. Venous mapping study as described. Venous Doppler Study 07/23/18 00:00 CONCLUSION: 1. Negative exam with no evidence of deep venous thrombosis. Chest CT 07/24/18 00:00 CONCLUSION: 1. Patchy parenchymal infiltrates and small effusions. 2. Irregular nodules are identified in the left upper lobe. The dominant nodule is stable. The nodule just superior to this is a new finding. Head CT 07/24/18 15:38 CONCLUSION: 1. Negative CT Head non contrast. . Head MRI 07/25/18 07:03 CONCLUSION: 1. No acute intracranial findings. 2. Age-related findings. 3. Severe degenerative findings of the cervical spine. Head MRA 07/25/18 20:59 CONCLUSION: Brain MRA within normal limits. Chest X-Ray 07/30/18 06:00 CONCLUSION: 1. Stable patchy airspace disease in the right midlung. Physical Exam: GENERAL: no distress, fully awake ill apparing cachectic SKIN: Warm and dry. NO rash HEENT: PERRL. NO icteric sclerae No nasal bleeding or discharge. Mucous membranes moist NECK supple CARDIOVASCULAR: Regular rate and rhythm. RESPIRATORY: No accesssory muscle use very few b/l rhonchi to auscultation. Breath sounds decreased GASTROINTESTINAL: Abdomen soft, + diffusely tender, no guarding, no rebound mildly distended. Hepatic and splenic margins not palpable. MUSCULOSKELETAL: Extremities without clubbing, cyanosis, or edema. NEUROLOGICAL: awake, follows commands. No obvious cranial nerve deficits. moves all 4 extremeties PSYCHIATRIC: calm, cooperative Assessment and Plan - Plan ESRD on HD thru Permcath placed few months ago Fever - up to 102 - resolved source likely PNA - suspected PNA, clinically improved on zosyn, azithro HD cath infection? flu negative PNA: improved New fever, diarrhea, abd pain dif dx include: Permacath related sepsis, c.diff, PLAN: agree with plan to cancell dc restart abx: vanco, cefepime Blood clx stool for C.diff If cont to have abd complaints will get CT A/P edna LOWE
[2018-07-30] MEDS ORDERED: Vancomycin Inj 1,000 MG in Sodium Chlor 0.9% Inj 250 ML IV.SIG ONE (21:00)
[2018-07-31] MEDS: Insulin NovoLOG Aspart Correctional Sugar Inj SQ SCH ×5 (04:57→22:12)
[2018-07-31 06:27] LABS: Vancomycin,Random 11.7 Comment
--- NOTE | 2018-07-31 08:39 | P.PNFP ---
Subjective Interval history: Had 2 loose stool overnight low grad temp 99.9 DC held, Cdiff pendning Results - Labs Result diagrams: 07/30/18 05:20 07/30/18 05:20 Abnormal lab results 07/30/18 07/31/18 Range/Units 23:40 05:10 Iron 10 L (65-175) mcg/dL TIBC 111 L (250-450) mcg/dL % Saturation 9.0 L (20-50) % Stl C.difficile Tox PCR Positive H (Negative) St C. diff Tox Epid 027 Positive H (Negative) - Imaging Impressions Chest X-Ray 07/30/18 06:00 CONCLUSION: 1. Stable patchy airspace disease in the right midlung. Physical Exam Vital signs: Vital Signs 07/30/18 10:19 07/30/18 12:00 07/30/18 16:00 Temperature 101.1 F H 101.1 F H Pulse Rate 114 H 101 H Respiratory Rate 12 12 Blood Pressure 132/75 93/51 L Pulse Oximetry 98 100 82 L 07/30/18 20:00 07/31/18 00:00 07/31/18 04:00 Temperature 99.9 F H 99.2 F 99 F Pulse Rate 93 H 108 H 94 H Respiratory Rate 19 17 16 Blood Pressure 105/55 L 127/75 104/57 L Pulse Oximetry 84 L 99 100 Intake & Output 07/30/18 07/31/18 07/31/18 18:59 06:59 18:59 Intake Total 50 / 50 350 / 350 Balance 50 / 50 350 / 350 Weight 51.1 kg Intake: IV 50 / 50 350 / 350 Maxipime Inj 1,000 MG In NS Inj 100 / 100 100 ML @ 200 mls/hr IV.SIG Q24H [facility] Rx#:[id number] Zosyn 2.25 GM Premix 50 ML @ 50 / 50 100 mls/hr IV.SIG Q12H [facility] Rx#: [id number] Vancomycin Inj 1,000 MG In NS 250 / 250 Inj 250 ML @ 250 mls/hr IV.SIG ONCE ONE Rx#:[id number] Other: # Voids 1 Date of Last Bowel Movement 07/30/18 07/30/18 - Constitutional no acute distress - Routine HEENT Exam Eye: Present: PERRL ENT: Present: mucous membranes moist - Routine Respiratory Exam Present: rhonchi, diminished air movement - Routine Cardiovascular Exam Present: S1, S2 - Routine Abdominal Exam Present: soft - Routine Extremities Exam Present: pulses intact - Routine Skin Exam Present: dry, warm - Routine Neurological Exam Present: alert - Urinary Catheter Management Straight Cath placed during this visit: yes Reason for continuing: Not indwelling catheter Insertion date: 07/21/18 Insertion time: 13:16 Assessment and Plan - Assessment (1) End stage renal disease Code(s): N18.6 - End stage renal disease Status: Acute Plan: ESRD on HD per renal. Consult pending for AVF. (2) Syncope and collapse Code(s): R55 - Syncope and collapse Status: Acute Plan: Cont to monitor BP for hypotension. He received a bolus of fluid for low BP early yesterday. (3) Acute exacerbation of COPD with asthma Code(s): J44.1 - Chronic obstructive pulmonary disease with (acute) exacerbation ; J45.901 - Unspecified asthma with (acute) exacerbation Status: Acute Onset Date: ~05/22/18 Plan: Oxygen supplement, bronchodilators. Breathing without C/O SOB. (4) Hypertension Code(s): I10 - Essential (primary) hypertension Status: Chronic Plan: Monitor (5) Pneumonia Code(s): J18.9 - Pneumonia, unspecified organism Status: Acute Plan: Bronchodilators, Oxygen supplement. - Assessment and Plan 07/23/18- Seen this am, he has been running temp 100.3 yesterday and this am 99.7. Blood cultures pending. he is again unsure if he want to continue Dialyses Will consult palliative care. - Agreeable to HD after second opinion. ID consulted for Unknown orgin fever, workup in process. Flu negative, BC negative x 2 days. Started on vanco, cefepime, Azithromycin. DR Milian consulted for AVF. case management consulted fore placement 07/25/18- Seen this am, he is more alert, sat's are maintained on [address] shows small nodule and infiltrate in RML And RLL. Blood cultures with no growth x 2 days. Negative influenza. Had episode yesterday of increased confusion,Ct head negative, Mri, Mra negative , EEG negative. He continues to proceed with Dialysis, Vascular seen order for No Lab stick or BP in left UE.CM working on lupillo placement. 07/26/18 - Now on dialysis and without complaints. If BP remains low, will need Midodrine to support. Will F/U renal and ID recommendations. Vascular access as an outpatient per VS. 07/27/18 - He is concerned about D/C and wants to go back [facility] than [facility]. ID following and monitoring antibiotic therapy and cultures. Presume he will be referred for AVF as an outpatient after infection resolved and cleared by ID. 07/28 hgb 7.4 begining dialysis will ck cbc am 07/31/18- Dc held yesterday rel;ated to increase fever and loos stools. Cdiff pending, blood cultures repeated. ID following. Dialysis today. Progress Note: Quality - AMI Clinical Trial Participant: No (4) Hypertension Qualifiers: Hypertension type: essential hypertension Qualified Code(s): I10 - Essential (primary) hypertension (5) Pneumonia Qualifiers: Laterality: right Lung location: lower lobe of lung
[2018-07-31] MEDS: Senna/Docusate Sodium 8.6/50 MG Tablet PO SCH ×2 (09:28→22:12)
--- NOTE | 2018-07-31 10:42 | P.PNNP ---
Subjective Interval history: Seen during hemodialysis, plan to remove 1.5 liters. Not feeling well, has loose stools. Now positive for CDIFF. <Marcy Gardner - Last Filed: 07/31/18 10:39> Physical Exam Vital signs: Vital Signs 07/30/18 12:00 07/30/18 16:00 07/30/18 20:00 Temperature 101.1 F H 101.1 F H 99.9 F H Pulse Rate 114 H 101 H 93 H Respiratory Rate 12 12 19 Blood Pressure 132/75 93/51 L 105/55 L Pulse Oximetry 100 82 L 84 L 07/31/18 00:00 07/31/18 04:00 07/31/18 08:00 Temperature 99.2 F 99 F 99.8 F H Pulse Rate 108 H 94 H 99 H Respiratory Rate 17 16 18 Blood Pressure 127/75 104/57 L 126/63 Pulse Oximetry 99 100 97 Intake & Output 07/30/18 07/31/18 07/31/18 18:59 06:59 18:59 Intake Total 50 / 50 350 / 350 Balance 50 / 50 350 / 350 Weight 51.1 kg Intake: IV 50 / 50 350 / 350 Maxipime Inj 1,000 MG In NS Inj 100 / 100 100 ML @ 200 mls/hr IV.SIG Q24H [facility] [place] Rx#:[id number] Zosyn 2.25 GM Premix 50 ML @ 50 / 50 100 mls/hr IV.SIG Q12H [facility] [place] Rx#: [id number] Vancomycin Inj 1,000 MG In NS 250 / 250 Inj 250 ML @ 250 mls/hr IV.SIG ONCE ONE Rx#:[id number] Other: # Voids 1 Date of Last Bowel Movement 07/30/18 07/30/18 07/30/18 # Bowel Movements 1 Narrative: GENERAL: Alert and oriented. SKIN: Warm and dry. Left IJ permacath HEAD: Normocephalic. EYES: No scleral icterus. No injection or drainage. NECK: Supple, trachea midline. No JVD or lymphadenopathy. CARDIOVASCULAR: Regular rate and rhythm without murmurs, gallops, or rubs. RESPIRATORY: Breath sounds equal bilaterally. No accessory muscle use. GASTROINTESTINAL: Abdomen soft, non-tender, nondistended. MUSCULOSKELETAL: No cyanosis, or edema. BACK: Nontender without obvious deformity. No CVA tenderness. - Urinary Catheter Management Straight Cath placed during this visit: yes Reason for continuing: Not indwelling catheter Insertion date: 07/21/18 Insertion time: 13:16 <Marcy Gardner - Last Filed: 07/31/18 10:39> Vital signs: Vital Signs 08/03/18 19:23 08/03/18 20:00 08/04/18 00:00 Temperature 97.6 F 98.6 F Pulse Rate 77 77 Respiratory Rate 16 16 16 Blood Pressure 90/51 L 105/60 Pulse Oximetry 95 94 L 08/04/18 04:00 08/04/18 08:00 08/04/18 10:46 Temperature 98.3 F 98 F Pulse Rate 75 76 Respiratory Rate 16 20 Blood Pressure 103/62 105/58 L Pulse Oximetry 95 98 98 08/04/18 12:00 08/04/18 16:00 Temperature 97.8 F 97.4 F L Pulse Rate 93 H 89 Respiratory Rate 20 20 Blood Pressure 103/56 L 124/67 Pulse Oximetry 95 100 Intake & Output 08/04/18 08/04/18 08/05/18 06:59 18:59 06:59 Intake Total 200 / 200 100 / 100 Output Total 100 / 100 500 / 500 Balance 100 / 100 -400 / -400 Weight 48.5 kg Intake: IV 200 / 200 100 / 100 Flagyl 500 MG Inj 100 ML @ 100 200 / 200 100 / 100 mls/hr IV.SIG Q8H [facility] Rx#: [id number] Output: Urine 100 / 100 500 / 500 Other: Date of Last Bowel Movement 08/03/18 08/04/18 - Urinary Catheter Management Straight Cath placed during this visit: no <Juan Green - Last Filed: 08/04/18 19:21> Assessment and Plan - Assessment (1) End stage renal disease Code(s): N18.6 - End stage renal disease Status: Acute Plan: Continue with hemodialysis on Saturday, , and Saturday Avoid gadolinium and IVF administration. Recommend Left arm precautions- No Lab draws or B/P readings (L UE) Dr. Leal consulted for AVF access, will be done outpatient. Outpatient hemodialysis arranged for Saturday, , and Sat with chair time of 3:45 Seen during hemodialysis, 3 K bath, plan to remove 1.5 liters of fluid. Discharge on hold, CDIFF positive now. (2) Anemia Code(s): D64.9 - Anemia, unspecified Status: Acute Onset Date: ~05/22/18 Qualifiers: Anemia type: due to chronic kidney disease Chronic kidney disease stage: stage 5, not on chronic dialysis Qualified Code(s): N18.5 - Chronic kidney disease, stage 5; D63.1 - Anemia in chronic kidney disease Plan: HGB stable Epogen with dialysis. Iron stores adequate <Marcy Gardner - Last Filed: 07/31/18 10:39> - Assessment (1) End stage renal disease Code(s): N18.6 - End stage renal disease Status: Acute Plan: Patient seen and examined, agree with above. HD today, remove fluid as tolerated. For placement, out patient HD arranged. (2) Anemia Code(s): D64.9 - Anemia, unspecified Status: Acute Onset Date: ~05/22/18 Qualifiers: Anemia type: due to chronic kidney disease Chronic kidney disease stage: stage 5, not on chronic dialysis Qualified Code(s): N18.5 - Chronic kidney disease, stage 5; D63.1 - Anemia in chronic kidney disease <Juan Green - Last Filed: 08/04/18 19:21> Progress Note: Quality - AMI Clinical Trial Participant: No <Marcy Gardner - Last Filed: 07/31/18 10:39>
[2018-07-31] MEDS: Acetaminophen/Codeine 300/30 MG Tablet PO PRN ×2 (14:03→22:28)
[2018-07-31] MEDS: Heparin 10,000 UNITS/10 ML Vial (for IV use) OTHER PRN (16:17)
[2018-07-31] MEDS ORDERED: Sodium Chlor 0.9% Inj 500 ML IV.SIG ONE (19:00)
--- NOTE | 2018-07-31 19:19 | P.PNID ---
Subjective Remarks: no fever 5 liquid BMs today co abd pain BP slightly low, but responded to fluids had HD today Antibiotics: zosyn azithro Allergies/Adverse Reactions: Allergies No Known Allergies Allergy (Unverified 07/21/18 11:29) Objective Vital Signs 07/30/18 20:00 07/31/18 00:00 07/31/18 04:00 Temperature 99.9 F H 99.2 F 99 F Pulse Rate 93 H 108 H 94 H Respiratory Rate 19 17 16 Blood Pressure 105/55 L 127/75 104/57 L Pulse Oximetry 84 L 99 100 07/31/18 08:00 07/31/18 14:59 07/31/18 16:00 Temperature 99.8 F H 98.6 F Pulse Rate 99 H 98 H Respiratory Rate 18 16 18 Blood Pressure 126/63 86/49 L Pulse Oximetry 97 100 Intake & Output 07/31/18 07/31/18 08/01/18 06:59 18:59 06:59 Intake Total 350 / 350 100 / 100 Output Total 1000 / 1000 Balance 350 / 350 -900 / -900 Weight 51.1 kg Intake: IV 350 / 350 100 / 100 Maxipime Inj 1,000 MG In NS Inj 100 / 100 100 ML @ 200 mls/hr IV.SIG Q24H [facility] Rx#:[id number] Vancomycin Inj 1,000 MG In NS 250 / 250 Inj 250 ML @ 250 mls/hr IV.SIG ONCE ONE Rx#:[id number] Flagyl 500 MG Inj 100 ML @ 100 100 / 100 mls/hr IV.SIG Q8H [facility] Rx#: [id number] Output: Hemodialysis Amount 1000 / 1000 Other: # Voids 1 Date of Last Bowel Movement 07/30/18 07/31/18 # Bowel Movements 4 # Incontinent Bowel Movements 1 07/30/18 23:40 Stool Clostridium difficile GDH Antigen - Final Positive - C. difficile Antigen detected. 07/30/18 23:40 Stool Clostridium difficile Toxin Assay - Final C.diff Toxin A &/or B Positive 07/30/18 17:26 Blood - Other Aerobic Blood Culture - Preliminary No growth in 1 day 07/30/18 17:26 Blood - Other Anaerobic Blood Culture - Preliminary No growth in 1 day Lab - Hematology Results 07/30/18 05:20 WBC 9.6 RBC 2.61 L Hgb 7.9 L Hct 24.3 L MCV 93.2 MCH 30.4 MCHC 32.6 RDW 16.2 Plt Count 325 MPV 7.6 Neut % (Auto) 82.1 H Lymph % (Auto) 6.5 L Gibson % (Auto) 10.0 H Eos % (Auto) 0.8 Baso % (Auto) 0.6 Neut # (Auto) 7.9 H Lymph # (Auto) 0.6 L Gibson # (Auto) 1.0 H Eos # (Auto) 0.1 Baso # (Auto) 0.1 WBC Differential . Differential Comment Auto diff final Hematology Comments Lab - Chemistry Results 07/29/18 07/30/18 07/30/18 20:51 05:20 07:27 Sodium 142 Potassium 4.1 Chloride 101 Carbon Dioxide 32.5 H Anion Gap 9 BUN 20 H Creatinine 4.44 H Estimated GFR 16 L POC Glucose 122 H 99 Random Glucose 94 Calcium 8.5 Phosphorus 4.4 Iron TIBC % Saturation Ferritin 771 H Albumin 3.1 L 07/30/18 07/30/18 07/30/18 11:56 17:41 21:13 Sodium Potassium Chloride Carbon Dioxide Anion Gap BUN Creatinine Estimated GFR POC Glucose 106 82 91 Random Glucose Calcium Phosphorus Iron TIBC % Saturation Ferritin Albumin 07/31/18 07/31/18 07/31/18 05:10 07:18 12:44 Sodium Potassium Chloride Carbon Dioxide Anion Gap BUN Creatinine Estimated GFR POC Glucose 88 86 Random Glucose Calcium Phosphorus Iron 10 L TIBC 111 L % Saturation 9.0 L Ferritin Albumin 07/31/18 07/31/18 13:15 16:10 Sodium Potassium Chloride Carbon Dioxide Anion Gap BUN Creatinine Estimated GFR POC Glucose 80 111 H Random Glucose Calcium Phosphorus Iron TIBC % Saturation Ferritin Albumin Imaging: ITS Impressions Cervical Spine CT 07/21/18 11:36 CONCLUSION: 1. No evidence of acute fracture, traumatic listhesis or significant soft tissue abnormality. 2. Severe degenerative disc disease with collapse of the disc and partial ankylosis at C3-4, C4-5 and C5-6. 3. Severe degenerative disc disease at C6-7 with foraminal encroachment. 4. Severe atlantoaxial degenerative disease 5. Reversal of normal cervical lordosis and mild degenerative anterolisthesis at C3-4. Upper Extremity Ultrasound 07/23/18 00:00 CONCLUSION: 1. Venous mapping study as described. Venous Doppler Study 07/23/18 00:00 CONCLUSION: 1. Negative exam with no evidence of deep venous thrombosis. Chest CT 07/24/18 00:00 CONCLUSION: 1. Patchy parenchymal infiltrates and small effusions. 2. Irregular nodules are identified in the left upper lobe. The dominant nodule is stable. The nodule just superior to this is a new finding. Head CT 07/24/18 15:38 CONCLUSION: 1. Negative CT Head non contrast. . Head MRI 07/25/18 07:03 CONCLUSION: 1. No acute intracranial findings. 2. Age-related findings. 3. Severe degenerative findings of the cervical spine. Head MRA 07/25/18 20:59 CONCLUSION: Brain MRA within normal limits. Chest X-Ray 07/30/18 06:00 CONCLUSION: 1. Stable patchy airspace disease in the right midlung. Physical Exam: GENERAL: no distress, fully awake ill apparing cachectic SKIN: Warm and dry. NO rash HEENT: PERRL. NO icteric sclerae No nasal bleeding or discharge. Mucous membranes moist NECK supple CARDIOVASCULAR: Regular rate and rhythm. RESPIRATORY: No accesssory muscle use very few b/l rhonchi to auscultation. Breath sounds decreased GASTROINTESTINAL: Abdomen soft, + diffusely tender, no guarding, no rebound mildly distended. Hepatic and splenic margins not palpable. MUSCULOSKELETAL: Extremities without clubbing, cyanosis, or edema. NEUROLOGICAL: awake, follows commands. No obvious cranial nerve deficits. moves all 4 extremeties PSYCHIATRIC: calm, cooperative Assessment and Plan - Plan ESRD on HD thru Permcath placed few months ago Fever - up to 102 - resolved source likely PNA - suspected PNA, clinically improved on zosyn, azithro HD cath infection? flu negative PNA: improved c.diff, new. Hypervirlent strain PLAN: dc IV vanco, cefepime started on oral vanco, IV Flagyl will get vanco levels tomorrow If improves will dc IV flagyl and cont oral vanco If cont to have abd complaints will get CT A/P edna LOWE
[2018-08-01] MEDS: Insulin NovoLOG Aspart Correctional Sugar Inj SQ SCH ×4 (08:47→21:06)
[2018-08-01] MEDS: Senna/Docusate Sodium 8.6/50 MG Tablet PO SCH ×2 (08:47→21:06)
--- NOTE | 2018-08-01 08:48 | P.PNFP ---
Subjective Interval history: complains of fatigue still,having loose stools Cdiff + Episode of symptomatic hypotension Afebrile this am Results - Labs Result diagrams: 07/30/18 05:20 07/30/18 05:20 Abnormal lab results 07/31/18 Range/Units 16:10 POC Glucose 111 H (68-110) mg/dl Microbiology 07/30/18 23:40 Clostridium difficile GDH Antigen - Final Stool Positive - C. difficile Antigen detected. Clostridium difficile Toxin Assay - Final C.diff Toxin A &/or B Positive 07/30/18 17:26 Aerobic Blood Culture - Preliminary Blood - Other No growth in 1 day Anaerobic Blood Culture - Preliminary No growth in 1 day - Imaging Cervical Spine CT 07/21/18 11:36 CONCLUSION: 1. No evidence of acute fracture, traumatic listhesis or significant soft tissue abnormality. 2. Severe degenerative disc disease with collapse of the disc and partial ankylosis at C3-4, C4-5 and C5-6. 3. Severe degenerative disc disease at C6-7 with foraminal encroachment. 4. Severe atlantoaxial degenerative disease 5. Reversal of normal cervical lordosis and mild degenerative anterolisthesis at C3-4. Chest X-Ray 07/21/18 11:36 CONCLUSION: Minimal improvement in consolidative changes right base. Head CT 07/21/18 11:36 CONCLUSION: 1. Negative for acute process . Upper Extremity Ultrasound 07/23/18 00:00 CONCLUSION: 1. Venous mapping study as described. Venous Doppler Study 07/23/18 00:00 CONCLUSION: 1. Negative exam with no evidence of deep venous thrombosis. Chest CT 07/24/18 00:00 CONCLUSION: 1. Patchy parenchymal infiltrates and small effusions. 2. Irregular nodules are identified in the left upper lobe. The dominant nodule is stable. The nodule just superior to this is a new finding. Chest X-Ray 07/24/18 06:00 CONCLUSION: Slight worsening in right lung aeration Head CT 07/24/18 15:38 CONCLUSION: 1. Negative CT Head non contrast. . Head MRI 07/25/18 07:03 CONCLUSION: 1. No acute intracranial findings. 2. Age-related findings. 3. Severe degenerative findings of the cervical spine. Head MRA 07/25/18 20:59 CONCLUSION: Brain MRA within normal limits. Chest X-Ray 07/27/18 06:00 CONCLUSION: 1. No significant interval change with patchy right midlung airspace consolidation. Chest X-Ray 07/30/18 06:00 CONCLUSION: 1. Stable patchy airspace disease in the right midlung. Physical Exam Vital signs: Vital Signs 07/31/18 14:59 07/31/18 16:00 07/31/18 20:00 Temperature 98.6 F 97.9 F Pulse Rate 98 H 89 Respiratory Rate 16 18 14 Blood Pressure 86/49 L 101/50 L Pulse Oximetry 100 98 08/01/18 00:00 08/01/18 04:00 Temperature 97.7 F 98.9 F Pulse Rate 85 91 H Respiratory Rate 14 16 Blood Pressure 90/50 L 92/54 L Pulse Oximetry 99 97 Intake & Output 07/31/18 08/01/18 08/01/18 18:59 06:59 18:59 Intake Total 100 / 100 1724 / 1724 Output Total 1000 / 1000 Balance -900 / -900 1724 / 1724 Intake: IV 100 / 100 600 / 600 NS Inj 500 ML @ As Directed IV. 500 / 500 SIG .Q0M [facility] Rx#:[id number] Flagyl 500 MG Inj 100 ML @ 100 100 / 100 100 / 100 mls/hr IV.SIG Q8H [facility] Rx#: [id number] Oral 1124 / 1124 Output: Hemodialysis Amount 1000 / 1000 Other: Date of Last Bowel Movement 07/31/18 07/31/18 # Bowel Movements 4 # Incontinent Bowel Movements 1 - Constitutional no acute distress - Routine HEENT Exam Head: Present: normocephalic - Routine Neck Exam Present: supple - Routine Respiratory Exam Present: rhonchi, diminished air movement - Routine Cardiovascular Exam Present: S1, S2 - Routine Abdominal Exam Present: tenderness - Detailed Abdominal Exam Bowel sounds: hyperactive - Routine Extremities Exam Present: pulses intact - Routine Skin Exam Present: dry, warm - Routine Neurological Exam Present: alert - Routine Psychiatric Exam Present: cooperative - Urinary Catheter Management Straight Cath placed during this visit: yes Reason for continuing: Not indwelling catheter Insertion date: 07/21/18 Insertion time: 13:16 Assessment and Plan - Assessment (1) End stage renal disease Code(s): N18.6 - End stage renal disease Status: Acute Plan: ESRD on HD per renal. Consult pending for AVF. (2) Syncope and collapse Code(s): R55 - Syncope and collapse Status: Acute Plan: Cont to monitor BP for hypotension. He received a bolus of fluid for low BP early yesterday. (3) Acute exacerbation of COPD with asthma Code(s): J44.1 - Chronic obstructive pulmonary disease with (acute) exacerbation ; J45.901 - Unspecified asthma with (acute) exacerbation Status: Acute Onset Date: ~05/22/18 Plan: Oxygen supplement, bronchodilators. Breathing without C/O SOB. (4) Hypertension Code(s): I10 - Essential (primary) hypertension Status: Chronic Plan: Monitor (5) Pneumonia Code(s): J18.9 - Pneumonia, unspecified organism Status: Acute Plan: Bronchodilators, Oxygen supplement. - Assessment and Plan 07/23/18- Seen this am, he has been running temp 100.3 yesterday and this am 99.7. Blood cultures pending. he is again unsure if he want to continue Dialyses Will consult palliative care. - Agreeable to HD after second opinion. ID consulted for Unknown orgin fever, workup in process. Flu negative, BC negative x 2 days. Started on vanco, cefepime, Azithromycin. DR Milian consulted for AVF. case management consulted fore placement 07/25/18- Seen this am, he is more alert, sat's are maintained on [address] shows small nodule and infiltrate in RML And RLL. Blood cultures with no growth x 2 days. Negative influenza. Had episode yesterday of increased confusion,Ct head negative, Mri, Mra negative , EEG negative. He continues to proceed with Dialysis, Vascular seen order for No Lab stick or BP in left UE.CM working on lupillo placement. 07/26/18 - Now on dialysis and without complaints. If BP remains low, will need Midodrine to support. Will F/U renal and ID recommendations. Vascular access as an outpatient per VS. 07/27/18 - He is concerned about D/C and wants to go back to [facility] rather than SNF. ID following and monitoring antibiotic therapy and cultures. Presume he will be referred for AVF as an outpatient after infection resolved and cleared by ID. 07/28 hgb 7.4 begining dialysis will ck cbc am 07/31/18- Dc held yesterday rel;ated to increase fever and loos stools. Cdiff pending, blood cultures repeated. ID following. Dialysis today. 08/01/18- Cont to have loose stools,. Cdiff +. Started on Flagyl and Po vanco. Being followed by ID. Afebrile this am. Started on Questran. Dialysis yesterday symptomatic hypotension. 500 ml bolus given related to multiple loose stools and dialysis. Patient responded/ Bp in 90's. Brroks cont to evaluate, can take while on isolation for c diff. DC when ID clears. Progress Note: Quality - AMI Clinical Trial Participant: No (4) Hypertension Qualifiers: Hypertension type: essential hypertension Qualified Code(s): I10 - Essential (primary) hypertension (5) Pneumonia Qualifiers: Laterality: right Lung location: lower lobe of lung
--- NOTE | 2018-08-01 11:03 | P.PNNP ---
Subjective Interval history: Reports feeling better today. Loose stools improving. Hemodialysis yesterday, some hypotension noted. <Marcy Gardner - Last Filed: 08/01/18 10:59> Physical Exam Vital signs: Vital Signs 07/31/18 14:59 07/31/18 16:00 07/31/18 20:00 Temperature 98.6 F 97.9 F Pulse Rate 98 H 89 Respiratory Rate 16 18 14 Blood Pressure 86/49 L 101/50 L Pulse Oximetry 100 98 08/01/18 00:00 08/01/18 04:00 08/01/18 08:00 Temperature 97.7 F 98.9 F 98.3 F Pulse Rate 85 91 H 87 Respiratory Rate 14 16 18 Blood Pressure 90/50 L 92/54 L 87/48 L Pulse Oximetry 99 97 98 Intake & Output 07/31/18 08/01/18 08/01/18 18:59 06:59 18:59 Intake Total 100 / 100 1724 / 1724 100 / 100 Output Total 1000 / 1000 Balance -900 / -900 1724 / 1724 100 / 100 Intake: IV 100 / 100 600 / 600 100 / 100 NS Inj 500 ML @ As Directed IV. 500 / 500 SIG .Q0M ONE Rx#:[id number] Flagyl 500 MG Inj 100 ML @ 100 100 / 100 100 / 100 100 / 100 mls/hr IV.SIG Q8H LALITO Rx#: [id number] Oral 1124 / 1124 Output: Hemodialysis Amount 1000 / 1000 Other: Date of Last Bowel Movement 07/31/18 07/31/18 # Bowel Movements 4 # Incontinent Bowel Movements 1 Narrative: GENERAL: Alert and oriented. SKIN: Warm and dry. Left IJ permacath HEAD: Normocephalic. EYES: No scleral icterus. No injection or drainage. NECK: Supple, trachea midline. No JVD or lymphadenopathy. CARDIOVASCULAR: Regular rate and rhythm without murmurs, gallops, or rubs. RESPIRATORY: Breath sounds equal bilaterally. No accessory muscle use. GASTROINTESTINAL: Abdomen soft, non-tender, nondistended. MUSCULOSKELETAL: No cyanosis, or edema. BACK: Nontender without obvious deformity. No CVA tenderness. - Urinary Catheter Management Straight Cath placed during this visit: yes Reason for continuing: Not indwelling catheter Insertion date: 07/21/18 Insertion time: 13:16 <Marcy Gardner - Last Filed: 08/01/18 10:59> Vital signs: Vital Signs 08/03/18 20:00 08/04/18 00:00 08/04/18 04:00 Temperature 97.6 F 98.6 F 98.3 F Pulse Rate 77 77 75 Respiratory Rate 16 16 16 Blood Pressure 90/51 L 105/60 103/62 Pulse Oximetry 95 94 L 95 08/04/18 08:00 08/04/18 10:46 08/04/18 12:00 Temperature 98 F 97.8 F Pulse Rate 76 93 H Respiratory Rate 20 20 Blood Pressure 105/58 L 103/56 L Pulse Oximetry 98 98 95 08/04/18 16:00 Temperature 97.4 F L Pulse Rate 89 Respiratory Rate 20 Blood Pressure 124/67 Pulse Oximetry 100 Intake & Output 08/04/18 08/04/18 08/05/18 06:59 18:59 06:59 Intake Total 200 / 200 100 / 100 Output Total 100 / 100 500 / 500 Balance 100 / 100 -400 / -400 Weight 48.5 kg Intake: IV 200 / 200 100 / 100 Flagyl 500 MG Inj 100 ML @ 100 200 / 200 100 / 100 mls/hr IV.SIG Q8H LALITO Rx#: [id number] Output: Urine 100 / 100 500 / 500 Other: Date of Last Bowel Movement 08/03/18 08/04/18 - Urinary Catheter Management Straight Cath placed during this visit: no <Juan Green - Last Filed: 08/04/18 19:48> Assessment and Plan - Assessment (1) End stage renal disease Code(s): N18.6 - End stage renal disease Status: Acute Plan: Continue with hemodialysis on Saturday, , and Saturday Plan Renal diet Avoid gadolinium and IVF administration. Recommend Left arm precautions- No Lab draws or B/P readings (L UE) Dr. Leal consulted for AVF access, will be done outpatient. Outpatient hemodialysis arranged for Saturday, , and Sat with chair time of 3:45 Hemodialysis yesterday with removal of 1 liter of fluid Hemodialysis tomorrow, will add midodrine daily as patient blood pressure on lower side. (2) Anemia Code(s): D64.9 - Anemia, unspecified Status: Acute Onset Date: ~05/22/18 Qualifiers: Anemia type: due to chronic kidney disease Chronic kidney disease stage: stage 5, not on chronic dialysis Qualified Code(s): N18.5 - Chronic kidney disease, stage 5; D63.1 - Anemia in chronic kidney disease Plan: HGB stable Epogen with dialysis. Iron stores adequate <Marcy Gardner - Last Filed: 08/01/18 10:59> - Assessment (1) End stage renal disease Code(s): N18.6 - End stage renal disease Status: Acute Plan: Patient seen and examined, agree with above. HD tomorrow, started on Midodrine for low BP. (2) Anemia Code(s): D64.9 - Anemia, unspecified Status: Acute Onset Date: ~05/22/18 Qualifiers: Anemia type: due to chronic kidney disease Chronic kidney disease stage: stage 5, not on chronic dialysis Qualified Code(s): N18.5 - Chronic kidney disease, stage 5; D63.1 - Anemia in chronic kidney disease <Juan Green - Last Filed: 08/04/18 19:48> Progress Note: Quality - AMI Clinical Trial Participant: No <Marcy Gardner - Last Filed: 08/01/18 10:59>
[2018-08-01] MEDS ORDERED: Sodium Chlor 0.9% Inj 500 ML IV.SIG STA (15:00)
[2018-08-02] MEDS: Insulin NovoLOG Aspart Correctional Sugar Inj SQ SCH ×4 (08:00→21:08)
[2018-08-02] MEDS: Senna/Docusate Sodium 8.6/50 MG Tablet PO SCH ×2 (09:00→21:08)
--- NOTE | 2018-08-02 10:18 | P.PNNP ---
Subjective Interval history: patient was seen and examined during dialysis. On 2K, UF goal is 800 ml. Tolerating it well, he appears malnourished. Generalized muscle wasting. Physical Exam Vital signs: Vital Signs 08/01/18 12:59 08/01/18 13:56 08/01/18 16:00 Temperature 99.2 F 98.4 F Pulse Rate 102 H 88 Respiratory Rate 16 18 Blood Pressure 100/50 L 98/50 L 92/53 L Pulse Oximetry 100 98 08/01/18 20:00 08/02/18 00:00 08/02/18 04:00 Temperature 98.9 F 98.3 F 98 F Pulse Rate 92 H 98 H 89 Respiratory Rate 16 14 14 Blood Pressure 99/50 L 91/53 L 99/55 L Pulse Oximetry 100 100 100 08/02/18 08:00 08/02/18 08:37 Temperature 98.6 F Pulse Rate 86 Respiratory Rate 18 Blood Pressure 120/60 Pulse Oximetry 96 98 Intake & Output 08/01/18 08/02/18 08/02/18 18:59 06:59 18:59 Intake Total 700 / 700 1041 / 1041 Output Total 125 / 125 Balance 700 / 700 916 / 916 Weight 50.6 kg Intake: IV 700 / 700 100 / 100 NS Inj 500 ML @ 999 mls/hr IV. 500 / 500 SIG STAT STA Rx#:[id number] Flagyl 500 MG Inj 100 ML @ 100 200 / 200 100 / 100 mls/hr IV.SIG Q8H LALITO Rx#: [id number] Oral 941 / 941 Output: Urine 125 / 125 Other: Date of Last Bowel Movement 08/01/18 08/01/18 Narrative: GENERAL: Alert and oriented. Generalized muscle wasting. SKIN: Warm and dry. Left IJ permacath HEAD: Normocephalic. EYES: No scleral icterus. No injection or drainage. NECK: Supple, trachea midline. No JVD or lymphadenopathy. CARDIOVASCULAR: Regular rate and rhythm without murmurs, gallops, or rubs. RESPIRATORY: Breath sounds equal bilaterally. No accessory muscle use. GASTROINTESTINAL: Abdomen soft, non-tender, nondistended. MUSCULOSKELETAL: No cyanosis, or edema. BACK: Nontender without obvious deformity. No CVA tenderness. - Urinary Catheter Management Straight Cath placed during this visit: yes Reason for continuing: Not indwelling catheter Insertion date: 07/21/18 Insertion time: 13:16 Assessment and Plan - Assessment (1) End stage renal disease Code(s): N18.6 - End stage renal disease Status: Acute Plan: Continue with hemodialysis on Saturday, , and Saturday Plan Renal diet. Needs high protein diet. Avoid gadolinium and IVF administration. Recommend Left arm precautions- No Lab draws or B/P readings (L UE) Dr. Leal consulted for AVF access, will be done outpatient. Outpatient hemodialysis arranged for Saturday, , and Sat with chair time of 3:45 (2) Anemia Code(s): D64.9 - Anemia, unspecified Status: Acute Onset Date: ~05/22/18 Qualifiers: Anemia type: due to chronic kidney disease Chronic kidney disease stage: stage 5, not on chronic dialysis Qualified Code(s): N18.5 - Chronic kidney disease, stage 5; D63.1 - Anemia in chronic kidney disease Plan: HGB stable Epogen with dialysis. Iron stores adequate Progress Note: Quality - AMI Clinical Trial Participant: No
--- NOTE | 2018-08-02 11:01 | P.PNFP ---
Subjective Interval history: ID indicates PNA is improved and has stopped IV Vanc but he remains on PO Vanc for treatment of C Dif. He tells me diarrhea is improved today and he remains dialysis dependent. Results - Labs Result diagrams: 07/30/18 05:20 07/30/18 05:20 Abnormal lab results 08/01/18 Range/Units 11:21 POC Glucose 127 H (68-110) mg/dl Physical Exam Vital signs: Vital Signs 08/01/18 12:59 08/01/18 13:56 08/01/18 16:00 Temperature 99.2 F 98.4 F Pulse Rate 102 H 88 Respiratory Rate 16 18 Blood Pressure 100/50 L 98/50 L 92/53 L Pulse Oximetry 100 98 08/01/18 20:00 08/02/18 00:00 08/02/18 04:00 Temperature 98.9 F 98.3 F 98 F Pulse Rate 92 H 98 H 89 Respiratory Rate 16 14 14 Blood Pressure 99/50 L 91/53 L 99/55 L Pulse Oximetry 100 100 100 08/02/18 08:00 08/02/18 08:37 Temperature 98.6 F Pulse Rate 86 Respiratory Rate 18 Blood Pressure 120/60 Pulse Oximetry 96 98 Intake & Output 08/01/18 08/02/18 08/02/18 18:59 06:59 18:59 Intake Total 700 / 700 1041 / 1041 Output Total 125 / 125 Balance 700 / 700 916 / 916 Weight 50.6 kg Intake: IV 700 / 700 100 / 100 NS Inj 500 ML @ 999 mls/hr IV. 500 / 500 SIG STAT STA Rx#:[id number] Flagyl 500 MG Inj 100 ML @ 100 200 / 200 100 / 100 mls/hr IV.SIG Q8H LALITO Rx#: [id number] Oral 941 / 941 Output: Urine 125 / 125 Other: Date of Last Bowel Movement 08/01/18 08/01/18 - Constitutional no acute distress - Routine HEENT Exam Head: Present: normocephalic Eye: Present: PERRL, normal accommodation ENT: Present: mucous membranes moist - Routine Neck Exam Present: supple, full ROM - Routine Respiratory Exam Present: distant breath sounds, diminished air movement - Routine Cardiovascular Exam Present: RRR, S1, S2 - Routine Abdominal Exam Present: soft, normoactive bowel sounds - Routine Extremities Exam Present: full ROM - Routine Skin Exam Present: intact - Routine Neurological Exam Present: alert, oriented X3 - Detailed Neurological Exam: Coma Scale Eye Opening: Spontaneous Verbal Response: Oriented Motor Response: Obey commands Annelise Coma Scale Total: 15 - Routine Psychiatric Exam Present: normal affect - Urinary Catheter Management Straight Cath placed during this visit: yes Reason for continuing: Not indwelling catheter Insertion date: 07/21/18 Insertion time: 13:16 Assessment and Plan - Assessment (1) End stage renal disease Code(s): N18.6 - End stage renal disease Status: Acute Plan: ESRD on HD per renal. Consult pending for AVF. (2) Syncope and collapse Code(s): R55 - Syncope and collapse Status: Acute Plan: Cont to monitor BP for hypotension. He received a bolus of fluid for low BP early yesterday. He is now on Midodrine with some improvement. (3) Acute exacerbation of COPD with asthma Code(s): J44.1 - Chronic obstructive pulmonary disease with (acute) exacerbation ; J45.901 - Unspecified asthma with (acute) exacerbation Status: Resolved Onset Date: ~05/22/18 Plan: Oxygen supplement, bronchodilators. Breathing without C/O SOB. ID has discontinued Vanc IV (4) Hypertension Code(s): I10 - Essential (primary) hypertension Status: Resolved Plan: Monitor. Now on Midodrine to support BP. (5) Pneumonia Code(s): J18.9 - Pneumonia, unspecified organism Status: Resolved Plan: Resolved per ID. (6) Clostridial gastroenteritis Code(s): A04.8 - Other specified bacterial intestinal infections Status: Acute - Assessment and Plan 07/23/18- Seen this am, he has been running temp 100.3 yesterday and this am 99.7. Blood cultures pending. he is again unsure if he want to continue Dialyses Will consult palliative care. - Agreeable to HD after second opinion. ID consulted for Unknown orgin fever, workup in process. Flu negative, BC negative x 2 days. Started on vanco, cefepime, Azithromycin. DR Milian consulted for AVF. case management consulted fore placement 07/25/18- Seen this am, he is more alert, sat's are maintained on [address] shows small nodule and infiltrate in RML And RLL. Blood cultures with no growth x 2 days. Negative influenza. Had episode yesterday of increased confusion,Ct head negative, Mri, Mra negative , EEG negative. He continues to proceed with Dialysis, Vascular seen order for No Lab stick or BP in left UE.CM working on intermediate placement. 07/26/18 - Now on dialysis and without complaints. If BP remains low, will need Midodrine to support. Will F/U renal and ID recommendations. Vascular access as an outpatient per VS. 07/27/18 - He is concerned about D/C and wants to go back to [facility] rather than SNF. ID following and monitoring antibiotic therapy and cultures. Presume he will be referred for AVF as an outpatient after infection resolved and cleared by ID. 07/28 hgb 7.4 begining dialysis will ck cbc am 07/31/18- Dc held yesterday rel;ated to increase fever and loos stools. Cdiff pending, blood cultures repeated. ID following. Dialysis today. 08/01/18- Cont to have loose stools,. Cdiff +. Started on Flagyl and Po vanco. Being followed by ID. Afebrile this am. Started on Questran. Dialysis yesterday symptomatic hypotension. 500 ml bolus given related to multiple loose stools and dialysis. Patient responded/ Bp in 90's. Brroks cont to evaluate, can take while on isolation for c diff. DC when ID clears. 08/02/18 - PNA resolved per ID but now with C Dif on PO Vanc and Flagyl. Diarrhea improved today. Cont to monitor and D/C to SNF when cleared by Renal and ID. Discharge Planning: Return to SNF when cleared by renal and ID. Progress Note: Quality - AMI Clinical Trial Participant: No (4) Hypertension Qualifiers: Hypertension type: essential hypertension Qualified Code(s): I10 - Essential (primary) hypertension (5) Pneumonia Qualifiers: Laterality: right Lung location: lower lobe of lung
[2018-08-02] MEDS: Heparin 10,000 UNITS/10 ML Vial (for IV use) OTHER PRN (13:14)
--- NOTE | 2018-08-02 13:27 | P.PNID ---
Subjective Remarks: " I dont feel well" co diarrhea, abd pain, chills no fever seen in HD today some hypotension earlier this am T max 99.0 Antibiotics: po vancomycin Allergies/Adverse Reactions: Allergies No Known Allergies Allergy (Unverified 07/21/18 11:29) Objective Vital Signs 08/01/18 13:56 08/01/18 16:00 08/01/18 20:00 Temperature 98.4 F 98.9 F Pulse Rate 88 92 H Respiratory Rate 18 16 Blood Pressure 98/50 L 92/53 L 99/50 L Pulse Oximetry 98 100 08/02/18 00:00 08/02/18 04:00 08/02/18 08:00 Temperature 98.3 F 98 F 98.6 F Pulse Rate 98 H 89 86 Respiratory Rate 14 14 18 Blood Pressure 91/53 L 99/55 L 120/60 Pulse Oximetry 100 100 96 08/02/18 08:37 08/02/18 12:00 Temperature 99.0 F Pulse Rate 87 Respiratory Rate 18 Blood Pressure 132/80 Pulse Oximetry 98 98 Intake & Output 08/01/18 08/02/18 08/02/18 18:59 06:59 18:59 Intake Total 700 / 700 1041 / 1041 Output Total 125 / 125 800 / 800 Balance 700 / 700 916 / 916 -800 / -800 Weight 50.6 kg Intake: IV 700 / 700 100 / 100 NS Inj 500 ML @ 999 mls/hr IV. 500 / 500 SIG STAT STA Rx#:[id number] Flagyl 500 MG Inj 100 ML @ 100 200 / 200 100 / 100 mls/hr IV.SIG Q8H LALITO Rx#: [id number] Oral 941 / 941 Output: Urine 125 / 125 Hemodialysis Amount 800 / 800 Other: Date of Last Bowel Movement 08/01/18 08/01/18 07/30/18 17:26 Blood - Other Aerobic Blood Culture - Preliminary No growth in 3 days 07/30/18 17:26 Blood - Other Anaerobic Blood Culture - Preliminary No growth in 3 days 07/30/18 23:40 Stool Clostridium difficile GDH Antigen - Final Positive - C. difficile Antigen detected. 07/30/18 23:40 Stool Clostridium difficile Toxin Assay - Final C.diff Toxin A &/or B Positive Lab - Chemistry Results 07/31/18 07/31/18 07/31/18 13:15 16:10 19:47 POC Glucose 80 111 H 108 Lactic Acid 08/01/18 08/01/18 08/01/18 07:24 11:21 13:32 POC Glucose 90 127 H Lactic Acid 0.8 08/01/18 08/01/18 08/02/18 16:45 20:06 08:18 POC Glucose 106 99 79 Lactic Acid 08/02/18 08/02/18 08/02/18 12:47 12:53 13:00 POC Glucose 67 L 66 L 89 Lactic Acid Imaging: ITS Impressions Cervical Spine CT 07/21/18 11:36 CONCLUSION: 1. No evidence of acute fracture, traumatic listhesis or significant soft tissue abnormality. 2. Severe degenerative disc disease with collapse of the disc and partial ankylosis at C3-4, C4-5 and C5-6. 3. Severe degenerative disc disease at C6-7 with foraminal encroachment. 4. Severe atlantoaxial degenerative disease 5. Reversal of normal cervical lordosis and mild degenerative anterolisthesis at C3-4. Upper Extremity Ultrasound 07/23/18 00:00 CONCLUSION: 1. Venous mapping study as described. Venous Doppler Study 07/23/18 00:00 CONCLUSION: 1. Negative exam with no evidence of deep venous thrombosis. Chest CT 07/24/18 00:00 CONCLUSION: 1. Patchy parenchymal infiltrates and small effusions. 2. Irregular nodules are identified in the left upper lobe. The dominant nodule is stable. The nodule just superior to this is a new finding. Head CT 07/24/18 15:38 CONCLUSION: 1. Negative CT Head non contrast. . Head MRI 07/25/18 07:03 CONCLUSION: 1. No acute intracranial findings. 2. Age-related findings. 3. Severe degenerative findings of the cervical spine. Head MRA 07/25/18 20:59 CONCLUSION: Brain MRA within normal limits. Chest X-Ray 07/30/18 06:00 CONCLUSION: 1. Stable patchy airspace disease in the right midlung. Physical Exam: GENERAL: no distress, fully awake ill apparing cachectic shivering SKIN: Warm and dry. NO rash HEENT: PERRL. NO icteric sclerae No nasal bleeding or discharge. Mucous membranes moist NECK supple CARDIOVASCULAR: Regular rate and rhythm. RESPIRATORY: No accesssory muscle use very few b/l rhonchi to auscultation. Breath sounds decreased GASTROINTESTINAL: Abdomen soft, + diffusely tender in RLQ/LLQ, no guarding, no rebound not distended. Hepatic and splenic margins not palpable. MUSCULOSKELETAL: Extremities without clubbing, cyanosis, or edema. NEUROLOGICAL: awake, follows commands. No obvious cranial nerve deficits. moves all 4 extremeties PSYCHIATRIC: calm, cooperative Assessment and Plan - Plan ESRD on HD thru Permcath placed few months ago Fever - up to 102 - resolved source likely PNA - suspected PNA, clinically improved on zosyn, azithro HD cath infection? flu negative PNA: improved c.diff, new. Hypervirlent strain - on oral vanco, level is 8 PLAN: dc IV vanco, cefepime change oral vanco to 125 (detectable vanco levels) cont IV Flagyl consider CT A/P if unresolving pain chk CBC dw RN call placed to primary team
[2018-08-02] MEDS: Acetaminophen/Codeine 300/30 MG Tablet PO PRN (21:13)
[2018-08-03] MEDS: Acetaminophen/Codeine 300/30 MG Tablet PO PRN ×3 (06:24→20:18)
[2018-08-03] MEDS: Insulin NovoLOG Aspart Correctional Sugar Inj SQ SCH ×4 (08:00→20:19)
--- NOTE | 2018-08-03 10:08 | P.DIET ---
Nutritional Evaluation Type of nutrition evaluation: initial Nutrition screening: Poor PO Intake Subjective Subjective Comments: Ate only 25% of his breakfast this morning. Objective - Diagnosis near syncope, falls, ESRD on HD, weakness - Objective Body Mass Index: 17.1 % IBW: 74 (IBW = 148#) Body Weight Used for Calculations: Actual (49.8 kg) Energy Needs - Lower Range (kCal/kg): 30 Energy Needs - Upper Range (kCal/kg): 35 Lower Limit kCal/kg (kCals): 1,494 Upper Limit kCal/kg (kCals): 1,743 Lower Limit Protein Factor (Grams per Kg): 1.2 Upper Limit Protein Factor (Grams per Kg): 1.5 Lower Protein Needs (Protein): 60 Upper Protein Needs (Protein): 75 Dietitian Reviewed in Medical Record: Current diet, Curent medications, Intake & Output, Labs, Medical history Diet Order: Renal: 2 gm Na Oral Diet Intake Amount: Poor <50% Objective Comments: (+) C Diff Assessment Assessment: Pt is at high nutrition risk 2' to dx, low wt for ht with a BMI of 17.1, and poor po intake. Pt with diarrhea from C Diff and he is feeling poorly which contributes to his poor po intake. Will send Nepro bid; each 8 oz serving provides 425 kcals and [address] will monitor acceptance. Recommendations: 1. Continue current diet 2. Nepro bid 3. Consider nutrition support if weight loss continues Dietitian to Monitor: Supplement acceptance, Intake & Output, Diet tolerance, Weight change, PO Intake, Medical course
--- NOTE | 2018-08-03 11:13 | P.PNFP ---
Subjective Interval history: I am told he had rigors and fever on dialysis yesterday. ID is following and blood cultures no growth thus far. Vanc was reduced PO as he was absorbing it orally. Results - Labs Result diagrams: 07/30/18 05:20 07/30/18 05:20 Abnormal lab results 08/02/18 08/02/18 08/02/18 Range/Units 12:47 12:53 17:34 POC Glucose 67 L 66 L 138 H (68-110) mg/dl 08/02/18 08/03/18 Range/Units 21:07 08:12 POC Glucose 162 H 112 H (68-110) mg/dl Physical Exam Vital signs: Vital Signs 08/02/18 12:00 08/02/18 16:00 08/02/18 20:00 Temperature 99.0 F 99.7 F H 97.6 F Pulse Rate 87 98 H 84 Respiratory Rate 18 18 18 Blood Pressure 132/80 117/66 119/55 L Pulse Oximetry 98 99 100 08/03/18 00:00 08/03/18 04:00 08/03/18 08:00 Temperature 98.6 F 98.0 F 98.1 F Pulse Rate 85 78 75 Respiratory Rate 18 18 14 Blood Pressure 97/56 L 105/51 L 91/46 L Pulse Oximetry 100 100 100 Intake & Output 08/02/18 08/03/18 08/03/18 18:59 06:59 18:59 Intake Total 1640 / 1640 Output Total 800 / 800 1700 / 1700 Balance -800 / -800 -60 / -60 Weight 49.8 kg Intake: IV 200 / 200 Flagyl 500 MG Inj 100 ML @ 100 200 / 200 mls/hr IV.SIG Q8H [facility] Rx#: [id number] Oral 1440 / 1440 Output: Urine 1700 / 1700 Hemodialysis Amount 800 / 800 Other: Date of Last Bowel Movement 08/02/18 08/02/18 - Constitutional no acute distress - Routine HEENT Exam Head: Present: normocephalic Eye: Present: PERRL, normal accommodation ENT: Present: mucous membranes moist - Routine Neck Exam Present: supple, full ROM - Routine Respiratory Exam Present: distant breath sounds - Routine Cardiovascular Exam Present: RRR, S1, S2 - Routine Abdominal Exam Present: soft, normoactive bowel sounds - Routine Extremities Exam Present: full ROM - Routine Skin Exam Present: intact - Routine Neurological Exam Present: alert, oriented X3 - Detailed Neurological Exam: Coma Scale Eye Opening: Spontaneous Verbal Response: Oriented Motor Response: Obey commands [place] Coma Scale Total: 15 - Routine Psychiatric Exam Present: normal affect - Urinary Catheter Management Straight Cath placed during this visit: yes Reason for continuing: Not indwelling catheter Insertion date: 07/21/18 Insertion time: 13:16 Assessment and Plan - Assessment (1) End stage renal disease Code(s): N18.6 - End stage renal disease Status: Acute Plan: ESRD on HD per renal. Consult pending for AVF. (2) Syncope and collapse Code(s): R55 - Syncope and collapse Status: Acute Plan: Cont to monitor BP for hypotension. He tolerated dialysis yesterday. He is now on Midodrine with some improvement. (3) Pneumonia Code(s): J18.9 - Pneumonia, unspecified organism Status: Resolved Plan: Resolved per ID. (4) Clostridial gastroenteritis Code(s): A04.8 - Other specified bacterial intestinal infections Status: Acute Plan: Vanc PO dose was reduced per ID as he was absorbing it PO. He denies loose stools but had fever and ID is considering abd CT. Alternate source of fever is PC. He is afebrile this AM. - Assessment and Plan 07/23/18- Seen this am, he has been running temp 100.3 yesterday and this am 99.7. Blood cultures pending. he is again unsure if he want to continue Dialyses Will consult palliative care. - Agreeable to HD after second opinion. ID consulted for Unknown orgin fever, workup in process. Flu negative, BC negative x 2 days. Started on vanco, cefepime, Azithromycin. DR Milian consulted for AVF. case management consulted fore placement 07/25/18- Seen this am, he is more alert, sat's are maintained on [address] shows small nodule and infiltrate in RML And RLL. Blood cultures with no growth x 2 days. Negative influenza. Had episode yesterday of increased confusion,Ct head negative, Mri, Mra negative , EEG negative. He continues to proceed with Dialysis, Vascular seen order for No Lab stick or BP in left UE.CM working on long term placement. 07/26/18 - Now on dialysis and without complaints. If BP remains low, will need Midodrine to support. Will F/U renal and ID recommendations. Vascular access as an outpatient per VS. 07/27/18 - He is concerned about D/C and wants to go back to [facility] rather than SNF. ID following and monitoring antibiotic therapy and cultures. Presume he will be referred for AVF as an outpatient after infection resolved and cleared by ID. 07/28 hgb 7.4 begining dialysis will ck cbc am 07/31/18- Dc held yesterday rel;ated to increase fever and loos stools. Cdiff pending, blood cultures repeated. ID following. Dialysis today. 08/01/18- Cont to have loose stools,. Cdiff +. Started on Flagyl and Po vanco. Being followed by ID. Afebrile this am. Started on Questran. Dialysis yesterday symptomatic hypotension. 500 ml bolus given related to multiple loose stools and dialysis. Patient responded/ Bp in 90's. Brroks cont to evaluate, can take while on isolation for c diff. DC when ID clears. 08/02/18 - PNA resolved per ID but now with C Dif on PO Vanc and Flagyl. Diarrhea improved today. Cont to monitor and D/C to SNF when cleared by Renal and ID. 08/03/18 - He had fever and rigors yesterday and is afebrile this AM. BC drawn are no growth thus far. ID is following and adjusting antibiotic coverage. Cont monitor closely and F/U BC as he may have infected PC. Discharge Planning: Return to SNF when cleared by renal and ID. Progress Note: Quality - AMI Clinical Trial Participant: No (3) Pneumonia Qualifiers: Laterality: right Lung location: lower lobe of lung
[2018-08-03] MEDS: Senna/Docusate Sodium 8.6/50 MG Tablet PO SCH ×2 (13:40→20:20)
[2018-08-04] MEDS: Acetaminophen/Codeine 300/30 MG Tablet PO PRN ×2 (00:29→10:56)
--- NOTE | 2018-08-04 08:53 | P.PNFP ---
Subjective Interval history: No stools over last 12 hours afebrile last 24h Voices stools are starting to form Still complains of abdominal pain Legs weak Results - Labs Result diagrams: 07/30/18 05:20 07/30/18 05:20 Abnormal lab results 08/03/18 08/03/18 Range/Units 17:03 20:18 POC Glucose 112 H 174 H (68-110) mg/dl Physical Exam Vital signs: Vital Signs 08/03/18 12:00 08/03/18 16:00 08/03/18 19:23 Temperature 98.0 F 97.3 F L Pulse Rate 84 80 Respiratory Rate 14 14 16 Blood Pressure 97/57 L 99/58 L Pulse Oximetry 98 100 08/03/18 20:00 08/04/18 00:00 08/04/18 04:00 Temperature 97.6 F 98.6 F 98.3 F Pulse Rate 77 77 75 Respiratory Rate 16 16 16 Blood Pressure 90/51 L 105/60 103/62 Pulse Oximetry 95 94 L 95 Intake & Output 08/03/18 08/04/18 08/04/18 18:59 06:59 18:59 Intake Total 100 / 100 200 / 200 Output Total 100 / 100 Balance 100 / 100 100 / 100 Weight 48.5 kg Intake: IV 100 / 100 200 / 200 Flagyl 500 MG Inj 100 ML @ 100 100 / 100 200 / 200 mls/hr IV.SIG Q8H [facility] Rx#: [id number] Output: Urine 100 / 100 Other: Date of Last Bowel Movement 08/02/18 08/03/18 - Constitutional no acute distress - Routine HEENT Exam Eye: Present: PERRL ENT: Present: mucous membranes moist - Routine Neck Exam Present: supple - Routine Respiratory Exam Present: rhonchi, diminished air movement - Routine Cardiovascular Exam Present: S1, S2 - Routine Abdominal Exam Present: soft, tenderness - Detailed Abdominal Exam Bowel sounds: hyperactive - Routine Skin Exam Present: warm - Routine Neurological Exam Present: alert - Routine Psychiatric Exam Present: cooperative - Urinary Catheter Management Straight Cath placed during this visit: yes Reason for continuing: Not indwelling catheter Insertion date: 07/21/18 Insertion time: 13:16 Assessment and Plan - Assessment (1) End stage renal disease Code(s): N18.6 - End stage renal disease Status: Acute Plan: ESRD on HD per renal. Consult pending for AVF. (2) Syncope and collapse Code(s): R55 - Syncope and collapse Status: Acute Plan: Cont to monitor BP for hypotension. He tolerated dialysis yesterday. He is now on Midodrine with some improvement. (3) Pneumonia Code(s): J18.9 - Pneumonia, unspecified organism Status: Resolved Plan: Resolved per ID. (4) Clostridial gastroenteritis Code(s): A04.8 - Other specified bacterial intestinal infections Status: Acute Plan: Vanc PO dose was reduced per ID as he was absorbing it PO. He denies loose stools but had fever and ID is considering abd CT. Alternate source of fever is PC. He is afebrile this AM. - Assessment and Plan 07/23/18- Seen this am, he has been running temp 100.3 yesterday and this am 99.7. Blood cultures pending. he is again unsure if he want to continue Dialyses Will consult palliative care. - Agreeable to HD after second opinion. ID consulted for Unknown orgin fever, workup in process. Flu negative, BC negative x 2 days. Started on vanco, cefepime, Azithromycin. DR Milian consulted for AVF. case management consulted fore placement 07/25/18- Seen this am, he is more alert, sat's are maintained on [address] shows small nodule and infiltrate in RML And RLL. Blood cultures with no growth x 2 days. Negative influenza. Had episode yesterday of increased confusion,Ct head negative, Mri, Mra negative , EEG negative. He continues to proceed with Dialysis, Vascular seen order for No Lab stick or BP in left UE.CM working on lupillo placement. 07/26/18 - Now on dialysis and without complaints. If BP remains low, will need Midodrine to support. Will F/U renal and ID recommendations. Vascular access as an outpatient per VS. 07/27/18 - He is concerned about D/C and wants to go back to [facility] rather than SNF. ID following and monitoring antibiotic therapy and cultures. Presume he will be referred for AVF as an outpatient after infection resolved and cleared by ID. 07/28 hgb 7.4 begining dialysis will ck cbc am 07/31/18- Dc held yesterday rel;ated to increase fever and loos stools. Cdiff pending, blood cultures repeated. ID following. Dialysis today. 08/01/18- Cont to have loose stools,. Cdiff +. Started on Flagyl and Po vanco. Being followed by ID. Afebrile this am. Started on Questran. Dialysis yesterday symptomatic hypotension. 500 ml bolus given related to multiple loose stools and dialysis. Patient responded/ Bp in 90's. Brroks cont to evaluate, can take while on isolation for c diff. DC when ID clears. 08/02/18 - PNA resolved per ID but now with C Dif on PO Vanc and Flagyl. Diarrhea improved today. Cont to monitor and D/C to SNF when cleared by Renal and ID. 08/03/18 - He had fever and rigors yesterday and is afebrile this AM. BC drawn are no growth thus far. ID is following and adjusting antibiotic coverage. Cont monitor closely and F/U BC as he may have infected PC. 08/04/18- Voices diarrhea better, no stools in last 12 hours. Cont w po vanco. he has been afebrile. BP 103/62, better. BS controlled 87-162 last 24h. Dialysis T/TH/Sat. Stills complains of abdominal pain, will get CT A/P per ID rec's. Will have PT/OT eval and treat. look to DC in next 1-[address] negative and remain afebrile. Being followed by Dejan. Progress Note: Quality - AMI Clinical Trial Participant: No (3) Pneumonia Qualifiers: Laterality: right Lung location: lower lobe of lung
[2018-08-04 10:01] LABS: Hematocrit 31.9 % (39.0-51.0); Hemoglobin 10.1 gm/dL (13.0-17.0); Mean Corpuscular HGB Conc 31.7 % (32.0-36.0); Mean Corpuscular Hemoglobin 29.9 pg (27.0-34.0); Mean Corpuscular Volume 94.3 fL (80.0-100.0); Mean Platelet Volume 7.3 fL (7.0-11.0); Platelet Count 460 th/mm3 (150-450); Red Blood Count 3.38 mil/mm3 (4.50-5.90); Red Cell Distribution Width 16.7 % (11.6-17.2); White Blood Count 7.5 th/mm3 (4.0-11.0)
--- NOTE | 2018-08-04 10:06 | P.PNNP ---
Subjective Interval history: Doing well, going to to have CT of abdomen. Loose stools are improving. Hemodialysis planned for tomorrow. <Marcy Gardner - Last Filed: 08/04/18 12:33> Physical Exam Vital signs: Vital Signs 08/03/18 12:00 08/03/18 16:00 08/03/18 19:23 Temperature 98.0 F 97.3 F L Pulse Rate 84 80 Respiratory Rate 14 14 16 Blood Pressure 97/57 L 99/58 L Pulse Oximetry 98 100 08/03/18 20:00 08/04/18 00:00 08/04/18 04:00 Temperature 97.6 F 98.6 F 98.3 F Pulse Rate 77 77 75 Respiratory Rate 16 16 16 Blood Pressure 90/51 L 105/60 103/62 Pulse Oximetry 95 94 L 95 08/04/18 08:00 Temperature 98 F Pulse Rate 76 Respiratory Rate 20 Blood Pressure 105/58 L Pulse Oximetry 98 Intake & Output 08/03/18 08/04/18 08/04/18 18:59 06:59 18:59 Intake Total 100 / 100 200 / 200 Output Total 100 / 100 Balance 100 / 100 100 / 100 Weight 48.5 kg Intake: IV 100 / 100 200 / 200 Flagyl 500 MG Inj 100 ML @ 100 100 / 100 200 / 200 mls/hr IV.SIG Q8H [facility] Rx#: [id number] Output: Urine 100 / 100 Other: Date of Last Bowel Movement 08/02/18 08/03/18 Narrative: GENERAL: Alert and oriented. SKIN: Warm and dry. Left IJ permacath HEAD: Normocephalic. EYES: No scleral icterus. No injection or drainage. NECK: Supple, trachea midline. No JVD or lymphadenopathy. CARDIOVASCULAR: Regular rate and rhythm without murmurs, gallops, or rubs. RESPIRATORY: Breath sounds equal bilaterally. No accessory muscle use. GASTROINTESTINAL: Abdomen soft, non-tender, nondistended. MUSCULOSKELETAL: No cyanosis, or edema. BACK: Nontender without obvious deformity. No CVA tenderness. - Urinary Catheter Management Straight Cath placed during this visit: yes Reason for continuing: Not indwelling catheter Insertion date: 07/21/18 Insertion time: 13:16 <Marcy Gardner - Last Filed: 08/04/18 12:33> Vital signs: Vital Signs 08/03/18 20:00 08/04/18 00:00 08/04/18 04:00 Temperature 97.6 F 98.6 F 98.3 F Pulse Rate 77 77 75 Respiratory Rate 16 16 16 Blood Pressure 90/51 L 105/60 103/62 Pulse Oximetry 95 94 L 95 08/04/18 08:00 08/04/18 10:46 08/04/18 12:00 Temperature 98 F 97.8 F Pulse Rate 76 93 H Respiratory Rate 20 20 Blood Pressure 105/58 L 103/56 L Pulse Oximetry 98 98 95 08/04/18 16:00 Temperature 97.4 F L Pulse Rate 89 Respiratory Rate 20 Blood Pressure 124/67 Pulse Oximetry 100 Intake & Output 08/04/18 08/04/18 08/05/18 06:59 18:59 06:59 Intake Total 200 / 200 100 / 100 Output Total 100 / 100 500 / 500 Balance 100 / 100 -400 / -400 Weight 48.5 kg Intake: IV 200 / 200 100 / 100 Flagyl 500 MG Inj 100 ML @ 100 200 / 200 100 / 100 mls/hr IV.SIG Q8H [facility] Rx#: [id number] Output: Urine 100 / 100 500 / 500 Other: Date of Last Bowel Movement 08/03/18 08/04/18 - Urinary Catheter Management Straight Cath placed during this visit: no <Filemon Green Q - Last Filed: 08/04/18 19:58> Assessment and Plan - Assessment (1) End stage renal disease Code(s): N18.6 - End stage renal disease Status: Acute Plan: Continue with hemodialysis on Saturday, , and Saturday Plan Renal diet. Needs high protein diet. Avoid gadolinium and IVF administration. Recommend Left arm precautions- No Lab draws or B/P readings (L UE) Dr. Leal consulted for AVF access, will be done outpatient. Outpatient hemodialysis arranged for Saturday, , and Sat with chair time of 3:45 Hemodialysis planned for tomorrow will remove fluid as tolerated. Plans for possible placement at [place] (2) Anemia Code(s): D64.9 - Anemia, unspecified Status: Acute Onset Date: ~05/22/18 Qualifiers: Anemia type: due to chronic kidney disease Chronic kidney disease stage: stage 5, not on chronic dialysis Qualified Code(s): N18.5 - Chronic kidney disease, stage 5; D63.1 - Anemia in chronic kidney disease Plan: HGB stable Epogen with dialysis. Iron stores adequate <Marcy Gardner - Last Filed: 08/04/18 12:33> - Assessment (1) End stage renal disease Code(s): N18.6 - End stage renal disease Status: Acute Plan: Patient seen and examined, agree with above. (2) Anemia Code(s): D64.9 - Anemia, unspecified Status: Acute Onset Date: ~05/22/18 Qualifiers: Anemia type: due to chronic kidney disease Chronic kidney disease stage: stage 5, not on chronic dialysis Qualified Code(s): N18.5 - Chronic kidney disease, stage 5; D63.1 - Anemia in chronic kidney disease <Juan Green - Last Filed: 08/04/18 19:58> Progress Note: Quality - AMI Clinical Trial Participant: No <Marcy Gardner - Last Filed: 08/04/18 12:33>
--- NOTE | 2018-08-04 10:27 | CT ---
EXAM DATE: 08/04/2018 10:21 AM EDT AGE/SEX: 82 years / Male INDICATIONS: Diffuse abdominal pain CLINICAL DATA: This is the patient's initial encounter. Patient reports that signs and symptoms have been present for 1 day and indicates a pain score of 3/10. MEDICAL/SURGICAL HISTORY: Chronic obstructive pulmonary disease. Gastroesophageal reflux disea se. Hypertension. . Hernia repair RADIATION DOSE: 4.85 CTDI (mGy) COMPARISON: [facility] – [place], CT ABDOMEN & PELVIS W/O CONTRAST, 05/28/2018. . TECHNIQUE: Multiple contiguous axial images were obtained through the abdomen. Images were obtained using multiple row detector helical technique. Using automated exposure control and adjustment of the mA and/or kV according to patient size, radiation dose was kept as low as reasonably achievable to o btain optimal diagnostic quality images. DICOM format image data is available electronically for rev iew and comparison. FINDINGS: Lower Lungs: The visualized lower lungs are clear. Liver: The liver has a homogeneous density without space-occupying lesion. There is no dilation of th e biliary tree. 1 cm sized gallstone in the decompressed gallbladder Spleen: Homogeneous density without enlargement. Pancreas: Unremarkable without mass or calcification. Kidneys: There is hydronephrosis of both kidneys. There is a left-sided renal cyst. I do not see any renal stones. Adrenal Glands: Unremarkable. Aorta: The aorta and proximal iliac vessels are grossly unremarkable without aneurysmal dilation. Bowel/Mesentery: The bowel loops are grossly unremarkable. The cecum and sigmoid colon have a normal configuration. Scattered free fluid in the mesentery, pelvis and around the liver Abdominal Wall: Intact. Retroperitoneum: No evidence of adenopathy in the retrocrural, para-aortic, or deep pelvic regions. Bladder: There again is a soft tissue defect in the left inferior bladder, difficult to statistician mathematical whethe r its coming from the bladder or an enlarged prostate. Reproductive Organs: No abnormal masses or calcifications seen. Inguinal: The inguinal region is unremarkable without evidence of adenopathy. Bony Structures: Lower lumbar rightward scoliosis with a compensatory left thoracolumbar CONCLUSION: 1. Soft tissue mass inferior left side of the bladder probably originating from enlarged prostate gl and. Both kidneys are hydronephrotic possibly obstruction without evidence of acute stone. 2. Dense atherosclerotic disease without aneurysm. 3. Gallstone in a noninflamed gallbladder Electronically signed by: Vito Guy MD 08/04/2018 10:25 AM EDT
[2018-08-04 10:39] LABS: Calcium 8.7 mg/dL (8.5-10.1); Carbon Dioxide 29.8 meq/L (21.0-32.0)
[2018-08-04 10:41] LABS: Potassium 4.7 meq/L (3.5-5.1)
[2018-08-04] MEDS: Senna/Docusate Sodium 8.6/50 MG Tablet PO SCH ×2 (10:57→22:30)
[2018-08-04] MEDS: Insulin NovoLOG Aspart Correctional Sugar Inj SQ SCH ×4 (10:57→22:30)
--- NOTE | 2018-08-04 17:46 | P.PNID ---
Subjective Remarks: fever low grade abd pain and diarrhea slowly improved Antibiotics: po vancomycin Allergies/Adverse Reactions: Allergies No Known Allergies Allergy (Unverified 07/21/18 11:29) Objective Vital Signs 08/03/18 19:23 08/03/18 20:00 08/04/18 00:00 Temperature 97.6 F 98.6 F Pulse Rate 77 77 Respiratory Rate 16 16 16 Blood Pressure 90/51 L 105/60 Pulse Oximetry 95 94 L 08/04/18 04:00 08/04/18 08:00 08/04/18 10:46 Temperature 98.3 F 98 F Pulse Rate 75 76 Respiratory Rate 16 20 Blood Pressure 103/62 105/58 L Pulse Oximetry 95 98 98 08/04/18 12:00 08/04/18 16:00 Temperature 97.8 F 97.4 F L Pulse Rate 93 H 89 Respiratory Rate 20 20 Blood Pressure 103/56 L 124/67 Pulse Oximetry 95 100 Intake & Output 08/03/18 08/04/18 08/04/18 18:59 06:59 18:59 Intake Total 100 / 100 200 / 200 100 / 100 Output Total 100 / 100 500 / 500 Balance 100 / 100 100 / 100 -400 / -400 Weight 48.5 kg Intake: IV 100 / 100 200 / 200 100 / 100 Flagyl 500 MG Inj 100 ML @ 100 100 / 100 200 / 200 100 / 100 mls/hr IV.SIG Q8H [facility] Rx#: [id number] Output: Urine 100 / 100 500 / 500 Other: Date of Last Bowel Movement 08/02/18 08/03/18 08/04/18 07/30/18 17:26 Blood - Other Aerobic Blood Culture - Final No growth in 5 days 07/30/18 17:26 Blood - Other Anaerobic Blood Culture - Final No growth in 5 days Lab - Hematology Results 08/04/18 09:35 WBC 7.5 RBC 3.38 L Hgb 10.1 L Hct 31.9 L MCV 94.3 MCH 29.9 MCHC 31.7 L RDW 16.7 Plt Count 460 H D MPV 7.3 Lab - Chemistry Results 08/02/18 08/03/18 08/03/18 21:07 08:12 12:01 Sodium Potassium Chloride Carbon Dioxide Anion Gap BUN Creatinine Estimated GFR POC Glucose 162 H 112 H 94 Random Glucose Calcium 08/03/18 08/03/1818 17:03 20:18 08:20 Sodium Potassium Chloride Carbon Dioxide Anion Gap BUN Creatinine Estimated GFR POC Glucose 112 H 174 H 87 Random Glucose Calcium 08/04/18 08/04/18 08/04/18 09:35 12:31 16:46 Sodium 147 H Potassium 4.7 Chloride 109 H Carbon Dioxide 29.8 Anion Gap 8 BUN 13 Creatinine 2.96 H Estimated GFR 25 L POC Glucose 95 140 H Random Glucose 83 Calcium 8.7 Imaging: ITS Impressions Cervical Spine CT 07/21/18 11:36 CONCLUSION: 1. No evidence of acute fracture, traumatic listhesis or significant soft tissue abnormality. 2. Severe degenerative disc disease with collapse of the disc and partial ankylosis at C3-4, C4-5 and C5-6. 3. Severe degenerative disc disease at C6-7 with foraminal encroachment. 4. Severe atlantoaxial degenerative disease 5. Reversal of normal cervical lordosis and mild degenerative anterolisthesis at C3-4. Upper Extremity Ultrasound 07/23/18 00:00 CONCLUSION: 1. Venous mapping study as described. Venous Doppler Study 07/23/18 00:00 CONCLUSION: 1. Negative exam with no evidence of deep venous thrombosis. Chest CT 07/24/18 00:00 CONCLUSION: 1. Patchy parenchymal infiltrates and small effusions. 2. Irregular nodules are identified in the left upper lobe. The dominant nodule is stable. The nodule just superior to this is a new finding. Head CT 07/24/18 15:38 CONCLUSION: 1. Negative CT Head non contrast. . Head MRI 07/25/18 07:03 CONCLUSION: 1. No acute intracranial findings. 2. Age-related findings. 3. Severe degenerative findings of the cervical spine. Head MRA 07/25/18 20:59 CONCLUSION: Brain MRA within normal limits. Chest X-Ray 07/30/18 06:00 CONCLUSION: 1. Stable patchy airspace disease in the right midlung. Abdomen/Pelvis CT 08/04/18 00:00 CONCLUSION: 1. Soft tissue mass inferior left side of the bladder probably originating from enlarged prostate gland. Both kidneys are hydronephrotic possibly obstruction without evidence of acute stone. 2. Dense atherosclerotic disease without aneurysm. 3. Gallstone in a noninflamed gallbladder Physical Exam: GENERAL: no distress, fully awake ill apparing cachectic shivering SKIN: Warm and dry. NO rash HEENT: PERRL. NO icteric sclerae No nasal bleeding or discharge. Mucous membranes moist NECK supple CARDIOVASCULAR: Regular rate and rhythm. RESPIRATORY: No accesssory muscle use very few b/l rhonchi to auscultation. Breath sounds decreased GASTROINTESTINAL: Abdomen soft, + diffusely tender in RLQ/LLQ, no guarding, no rebound not distended. Hepatic and splenic margins not palpable. MUSCULOSKELETAL: Extremities without clubbing, cyanosis, or edema. NEUROLOGICAL: awake, follows commands. No obvious cranial nerve deficits. moves all 4 extremeties PSYCHIATRIC: calm, cooperative Assessment and Plan - Plan ESRD on HD thru Permcath placed few months ago Fever - - resolved source likely PNA PNA, clinically improved on zosyn, azithro HD cath infection? flu negative PNA: improved c.diff, new. Hypervirlent strain - on oral vanco, level is 8 PLAN: cont oral vanco dc IV Flagyl If cont to have and/or abd pain will get CT A/P with oral contrast tomowwor chk CBC dw Dr Johnson
[2018-08-05] MEDS: Heparin 10,000 UNITS/10 ML Vial (for IV use) OTHER PRN (11:53)
[2018-08-05] MEDS: Insulin NovoLOG Aspart Correctional Sugar Inj SQ SCH ×3 (13:05→21:18)
[2018-08-05] MEDS: Senna/Docusate Sodium 8.6/50 MG Tablet PO SCH ×2 (13:06→21:17)
[2018-08-05] MEDS: Acetaminophen/Codeine 300/30 MG Tablet PO PRN (13:11)
--- NOTE | 2018-08-05 16:12 | P.PNNP ---
Subjective Interval history: Denies any shortness of breath, nausea or vomiting. Hemodialysis today, tolerated well. <Marcy Gardner - Last Filed: 08/05/18 16:08> Physical Exam Vital signs: Vital Signs 08/04/18 20:00 08/05/18 00:00 08/05/18 04:00 Temperature 97.7 F 97.6 F 97.8 F Pulse Rate 76 76 91 H Respiratory Rate 18 18 18 Blood Pressure 97/56 L 101/56 L 110/57 L Pulse Oximetry 100 97 99 08/05/18 08:00 08/05/18 12:00 Temperature 98.4 F 97.5 F L Pulse Rate 93 H 111 H Respiratory Rate 17 17 Blood Pressure 127/65 106/72 Pulse Oximetry 96 94 L Intake & Output 08/04/18 08/05/18 08/05/18 18:59 06:59 18:59 Intake Total 900 / 900 100 / 100 100 / 100 Output Total 800 / 800 100 / 100 1100 / 1100 Balance 100 / 100 0 / 0 -1000 / -1000 Weight 49.9 kg Intake: IV 100 / 100 100 / 100 100 / 100 Flagyl 500 MG Inj 100 ML @ 100 100 / 100 100 / 100 100 / 100 mls/hr IV.SIG Q8H LAL[facility]O Rx#: [id number] Oral 600 / 600 Other 200 / 200 Output: Urine 800 / 800 100 / 100 100 / 100 Hemodialysis Amount 1000 / 1000 Other: Other Intake Source Saline Solution Date of Last Bowel Movement 08/04/18 08/04/18 Narrative: GENERAL: Alert and oriented. SKIN: Warm and dry. Left IJ permacath HEAD: Normocephalic. EYES: No scleral icterus. No injection or drainage. NECK: Supple, trachea midline. No JVD or lymphadenopathy. CARDIOVASCULAR: Regular rate and rhythm without murmurs, gallops, or rubs. RESPIRATORY: Breath sounds equal bilaterally. No accessory muscle use. GASTROINTESTINAL: Abdomen soft, non-tender, nondistended. MUSCULOSKELETAL: No cyanosis, or edema. BACK: Nontender without obvious deformity. No CVA tenderness. - Urinary Catheter Management Straight Cath placed during this visit: yes Reason for continuing: Not indwelling catheter Insertion date: 07/21/18 Insertion time: 13:16 <Marcy Gardner - Last Filed: 08/05/18 16:08> Vital signs: Vital Signs 08/06/18 20:00 08/06/18 23:57 08/07/18 08:00 Temperature 98 F 97.7 F 97.8 F Pulse Rate 77 76 74 Respiratory Rate 18 18 18 Blood Pressure 89/53 L 106/56 L 144/62 H Pulse Oximetry 100 96 08/07/18 10:54 Temperature Pulse Rate Respiratory Rate Blood Pressure Pulse Oximetry 97 Intake & Output 08/06/18 08/07/18 08/07/18 18:59 06:59 18:59 Intake Total 1132 / 1132 200 / 200 Output Total 1200 / 1200 Balance -68 / -68 200 / 200 Intake: IV 100 / 100 200 / 200 Flagyl 500 MG Inj 100 ML @ 100 100 / 100 200 / 200 mls/hr IV.SIG Q8H LALIOT Rx#: [id number] Oral 832 / 832 Other 200 / 200 Output: Urine 200 / 200 Hemodialysis Amount 1000 / 1000 Other: Other Intake Source Saline Solution # Voids 1 # Incontinent Voids 1 Date of Last Bowel Movement 08/05/18 08/05/18 # Bowel Movements 0 - Urinary Catheter Management Straight Cath placed during this visit: no <Juan Green - Last Filed: 08/07/18 18:02> Assessment and Plan - Assessment (1) End stage renal disease Code(s): N18.6 - End stage renal disease Status: Acute Plan: Continue with hemodialysis on Saturday, , and Saturday Plan Renal diet, high protein Avoid gadolinium and IVF administration. Recommend Left arm precautions- No Lab draws or B/P readings (L UE) Dr. Leal consulted for AVF access, will be done outpatient. Outpatient hemodialysis arranged for Saturday, , and Sat with chair time of 3:45 Hemodialysis today tolerated well with removal of 1 liter of fluid. Discharge plans underway (2) Anemia Code(s): D64.9 - Anemia, unspecified Status: Acute Onset Date: ~05/22/18 Qualifiers: Anemia type: due to chronic kidney disease Chronic kidney disease stage: stage 5, not on chronic dialysis Qualified Code(s): N18.5 - Chronic kidney disease, stage 5; D63.1 - Anemia in chronic kidney disease Plan: HGB stable Epogen with dialysis. Iron stores adequate <Marcy Gardner - Last Filed: 08/05/18 16:08> - Assessment (1) End stage renal disease Code(s): N18.6 - End stage renal disease Status: Acute Plan: Patient seen and examined, agree with above. Continue HD TTS. Diarrhea is better, encourage oral intake. (2) Anemia Code(s): D64.9 - Anemia, unspecified Status: Acute Onset Date: ~05/22/18 Qualifiers: Anemia type: due to chronic kidney disease Chronic kidney disease stage: stage 5, not on chronic dialysis Qualified Code(s): N18.5 - Chronic kidney disease, stage 5; D63.1 - Anemia in chronic kidney disease <Juan Green - Last Filed: 08/07/18 18:02> Progress Note: Quality - AMI Clinical Trial Participant: No <Marcy Gardner - Last Filed: 08/05/18 16:08>
[2018-08-06 00:40] VITALS: RESP 18
[2018-08-06] MEDS: Insulin NovoLOG Aspart Correctional Sugar Inj SQ SCH ×4 (08:31→20:46)
[2018-08-06] MEDS: Senna/Docusate Sodium 8.6/50 MG Tablet PO SCH ×2 (08:31→20:47)
[2018-08-06] MEDS: Acetaminophen/Codeine 300/30 MG Tablet PO PRN ×4 (08:34→23:59)
--- NOTE | 2018-08-06 08:56 | P.PNFP ---
Subjective Interval history: Had episode of diarrhea in dialysis yesterday Complains of persistent abdominal pain Afebrile last 24h Results - Labs Result diagrams: 08/04/18 09:35 08/04/18 09:35 Laboratory Results - last 72 hr 08/03/18 08/03/18 08/03/18 12:01 17:03 20:18 WBC RBC Hgb Hct MCV MCH MCHC RDW Plt Count MPV Sodium Potassium Chloride Carbon Dioxide Anion Gap BUN Creatinine Estimated GFR POC Glucose 94 112 H 174 H Random Glucose Calcium 08/04/18 08/04/18 08/04/18 08:20 09:35 09:35 WBC 7.5 RBC 3.38 L Hgb 10.1 L Hct 31.9 L MCV 94.3 MCH 29.9 MCHC 31.7 L RDW 16.7 Plt Count 460 H D MPV 7.3 Sodium 147 H Potassium 4.7 Chloride 109 H Carbon Dioxide 29.8 Anion Gap 8 BUN 13 Creatinine 2.96 H Estimated GFR 25 L POC Glucose 87 Random Glucose 83 Calcium 8.7 08/04/18 08/04/18 08/04/18 12:31 16:46 22:25 WBC RBC Hgb Hct MCV MCH MCHC RDW Plt Count MPV Sodium Potassium Chloride Carbon Dioxide Anion Gap BUN Creatinine Estimated GFR POC Glucose 95 140 H 91 Random Glucose Calcium 08/05/18 08/05/18 08/05/18 08:10 11:35 17:43 WBC RBC Hgb Hct MCV MCH MCHC RDW Plt Count MPV Sodium Potassium Chloride Carbon Dioxide Anion Gap BUN Creatinine Estimated GFR POC Glucose 85 89 78 Random Glucose Calcium 08/05/18 08/06/18 21:08 08:20 WBC RBC Hgb Hct MCV MCH MCHC RDW Plt Count MPV Sodium Potassium Chloride Carbon Dioxide Anion Gap BUN Creatinine Estimated GFR POC Glucose 97 83 Random Glucose Calcium - Imaging Cervical Spine CT 07/21/18 11:36 CONCLUSION: 1. No evidence of acute fracture, traumatic listhesis or significant soft tissue abnormality. 2. Severe degenerative disc disease with collapse of the disc and partial ankylosis at C3-4, C4-5 and C5-6. 3. Severe degenerative disc disease at C6-7 with foraminal encroachment. 4. Severe atlantoaxial degenerative disease 5. Reversal of normal cervical lordosis and mild degenerative anterolisthesis at C3-4. Chest X-Ray 07/21/18 11:36 CONCLUSION: Minimal improvement in consolidative changes right base. Head CT 07/21/18 11:36 CONCLUSION: 1. Negative for acute process . Upper Extremity Ultrasound 07/23/18 00:00 CONCLUSION: 1. Venous mapping study as described. Venous Doppler Study 07/23/18 00:00 CONCLUSION: 1. Negative exam with no evidence of deep venous thrombosis. Chest CT 07/24/18 00:00 CONCLUSION: 1. Patchy parenchymal infiltrates and small effusions. 2. Irregular nodules are identified in the left upper lobe. The dominant nodule is stable. The nodule just superior to this is a new finding. Chest X-Ray 07/24/18 06:00 CONCLUSION: Slight worsening in right lung aeration Head CT 07/24/18 15:38 CONCLUSION: 1. Negative CT Head non contrast. . Head MRI 07/25/18 07:03 CONCLUSION: 1. No acute intracranial findings. 2. Age-related findings. 3. Severe degenerative findings of the cervical spine. Head MRA 07/25/18 20:59 CONCLUSION: Brain MRA within normal limits. Chest X-Ray 07/27/18 06:00 CONCLUSION: 1. No significant interval change with patchy right midlung airspace consolidation. Chest X-Ray 07/30/18 06:00 CONCLUSION: 1. Stable patchy airspace disease in the right midlung. Abdomen/Pelvis CT 08/04/18 00:00 CONCLUSION: 1. Soft tissue mass inferior left side of the bladder probably originating from enlarged prostate gland. Both kidneys are hydronephrotic possibly obstruction without evidence of acute stone. 2. Dense atherosclerotic disease without aneurysm. 3. Gallstone in a noninflamed gallbladder Physical Exam Vital signs: Vital Signs 08/05/18 12:00 08/05/18 16:00 08/05/18 20:00 Temperature 97.5 F L 98.2 F 98.1 F Pulse Rate 111 H 100 H 64 Respiratory Rate 17 18 16 Blood Pressure 106/72 111/53 L 96/54 L Pulse Oximetry 94 L 100 100 08/06/18 00:00 08/06/18 04:00 08/06/18 08:00 Temperature 98.1 F 98.3 F Pulse Rate 86 82 Respiratory Rate 18 18 Blood Pressure 104/54 L 99/49 L Pulse Oximetry 100 96 98 Intake & Output 08/05/18 08/06/18 08/06/18 18:59 06:59 18:59 Intake Total 440 / 440 1200 / 1200 Output Total 1150 / 1150 100 / 100 Balance -710 / -710 1100 / 1100 Weight 49.3 kg Intake: IV 200 / 200 1200 / 1200 Flagyl 500 MG Inj 100 ML @ 100 200 / 200 200 / 200 mls/hr IV.SIG Q8H [facility] Rx#: [id number] NS Inj 1,000 ML @ As Directed 1000 / 1000 OTHER .Q0M PRN Rx#:[id number] Oral 240 / 240 Output: Urine 150 / 150 100 / 100 Hemodialysis Amount 1000 / 1000 Other: Date of Last Bowel Movement 08/05/18 08/05/18 # Bowel Movements 1 - Constitutional no acute distress - Routine HEENT Exam Head: Present: normocephalic Eye: Present: PERRL ENT: Present: mucous membranes moist - Routine Neck Exam Present: supple - Routine Respiratory Exam Present: rhonchi, diminished air movement - Routine Cardiovascular Exam Present: S1, S2 - Routine Abdominal Exam Present: soft, tenderness - Routine Extremities Exam Present: pulses intact - Routine Skin Exam Present: dry, warm - Routine Neurological Exam Present: alert - Routine Psychiatric Exam Present: cooperative - Urinary Catheter Management Straight Cath placed during this visit: yes Reason for continuing: Not indwelling catheter Insertion date: 07/21/18 Insertion time: 13:16 Assessment and Plan - Assessment (1) End stage renal disease Code(s): N18.6 - End stage renal disease Status: Acute Plan: ESRD on HD per renal. Consult pending for AVF. (2) Syncope and collapse Code(s): R55 - Syncope and collapse Status: Acute Plan: Cont to monitor BP for hypotension. He tolerated dialysis yesterday. He is now on Midodrine with some improvement. (3) Pneumonia Code(s): J18.9 - Pneumonia, unspecified organism Status: Resolved Plan: PNA related to Gram (-) bacteria treated with Iv vancomycin resolved (4) Clostridial gastroenteritis Code(s): A04.8 - Other specified bacterial intestinal infections Status: Acute Plan: Vanc PO dose was reduced per ID as he was absorbing it PO. He voices loose stools in dialysis no fever and ID recommends CT w/ contrast (5) Severe protein-calorie malnutrition Code(s): E43 - Unspecified severe protein-calorie malnutrition Status: Acute Plan: With bmi 16.9, followed by dietary nephro bid compromised with C diff. - Assessment and Plan 07/23/18- Seen this am, he has been running temp 100.3 yesterday and this am 99.7. Blood cultures pending. he is again unsure if he want to continue Dialyses Will consult palliative care. - Agreeable to HD after second opinion. ID consulted for Unknown orgin fever, workup in process. Flu negative, BC negative x 2 days. Started on vanco, cefepime, Azithromycin. DR Milian consulted for AVF. case management consulted fore placement 07/25/18- Seen this am, he is more alert, sat's are maintained on [address] shows small nodule and infiltrate in RML And RLL. Blood cultures with no growth x 2 days. Negative influenza. Had episode yesterday of increased confusion,Ct head negative, Mri, Mra negative , EEG negative. He continues to proceed with Dialysis, Vascular seen order for No Lab stick or BP in left UE.CM working on chcf placement. 07/26/18 - Now on dialysis and without complaints. If BP remains low, will need Midodrine to support. Will F/U renal and ID recommendations. Vascular access as an outpatient per VS. 07/27/18 - He is concerned about D/C and [facility] than [facility]. ID following and monitoring antibiotic therapy and cultures. Presume he will be referred for AVF as an outpatient after infection resolved and cleared by ID. 07/28 hgb 7.4 begining dialysis will ck cbc am 07/31/18- Dc held yesterday rel;ated to increase fever and loos stools. Cdiff pending, blood cultures repeated. ID following. Dialysis today. 08/01/18- Cont to have loose stools,. Cdiff +. Started on Flagyl and Po vanco. Being followed by ID. Afebrile this am. Started on Questran. Dialysis yesterday symptomatic hypotension. 500 ml bolus given related to multiple loose stools and dialysis. Patient responded/ Bp in 90's. Brroks cont to evaluate, can take while on isolation for c diff. DC when ID clears. 08/02/18 - PNA resolved per ID but now with C Dif on PO Vanc and Flagyl. Diarrhea improved today. Cont to monitor and D/C to SNF when cleared by Renal and ID. 08/03/18 - He had fever and rigors yesterday and is afebrile this AM. BC drawn are no growth thus far. ID is following and adjusting antibiotic coverage. Cont monitor closely and F/U BC as he may have infected PC. 08/04/18- Voices diarrhea better, no stools in last 12 hours. Cont w po vanco. he has been afebrile. BP 103/62, better. BS controlled 87-162 last 24h. Dialysis T/TH/Sat. Stills complains of abdominal pain, will get CT A/P per ID rec's. Will have PT/OT eval and treat. look to DC in next 1-[address] negative and remain afebrile. Being followed by Dejan. 08/05/18- off floor 08/06/18- Seen this am complains of diarrhea yesterday in dialysis, he is still having abdominal pain, improved but still there. He is on Po vanco, will get ct w contract per Id rec's If ct ok, will dc to rehab, he has been afebrile, stools have significantly. he is on Questran. Dialyses arranged for outpatient.AV maxim[facility] to be place outpatient. Scheduled for rehab DBHR Will cont to monitor . Progress Note: Quality - AMI Clinical Trial Participant: No (3) Pneumonia Qualifiers: Laterality: right Lung location: lower lobe of lung
[2018-08-06] MEDS ORDERED: Diatrizoate Meglum/Diatrizoate Sod Liq 9 ML UDC PO ONE (10:15)
--- NOTE | 2018-08-06 17:29 | P.PNNP ---
Subjective Interval history: Denies any shortness of breath, nausea, or vomiting. Reports some continued abdominal discomfort. <Marcy Gardner - Last Filed: 08/06/18 17:27> Physical Exam Vital signs: Vital Signs 08/05/18 20:00 08/06/18 00:00 08/06/18 04:00 Temperature 98.1 F 98.1 F 98.3 F Pulse Rate 64 86 82 Respiratory Rate 16 18 18 Blood Pressure 96/54 L 104/54 L 99/49 L Pulse Oximetry 100 100 96 08/06/18 08:00 08/06/18 12:00 08/06/18 16:00 Temperature 98.3 F 97.8 F 98 F Pulse Rate 83 73 72 Respiratory Rate 18 18 18 Blood Pressure 110/59 L 124/62 100/50 L Pulse Oximetry 98 100 99 Intake & Output 08/05/18 08/06/18 08/06/18 18:59 06:59 18:59 Intake Total 440 / 440 1200 / 1200 100 / 100 Output Total 1150 / 1150 100 / 100 Balance -710 / -710 1100 / 1100 100 / 100 Weight 49.3 kg Intake: IV 200 / 200 1200 / 1200 100 / 100 Flagyl 500 MG Inj 100 ML @ 100 200 / 200 200 / 200 100 / 100 mls/hr IV.SIG Q8H [facility] Rx#: [id number] NS Inj 1,000 ML @ As Directed 1000 / 1000 OTHER .Q0M PRN Rx#:[id number] Oral 240 / 240 Output: Urine 150 / 150 100 / 100 Hemodialysis Amount 1000 / 1000 Other: Date of Last Bowel Movement 08/05/18 08/05/18 # Bowel Movements 1 Narrative: GENERAL: Alert and oriented. SKIN: Warm and dry. Left IJ permacath HEAD: Normocephalic. EYES: No scleral icterus. No injection or drainage. NECK: Supple, trachea midline. No JVD or lymphadenopathy. CARDIOVASCULAR: Regular rate and rhythm without murmurs, gallops, or rubs. RESPIRATORY: Breath sounds equal bilaterally. No accessory muscle use. GASTROINTESTINAL: Abdomen soft, non-tender, nondistended. MUSCULOSKELETAL: No cyanosis, or edema. BACK: Nontender without obvious deformity. No CVA tenderness. - Urinary Catheter Management Straight Cath placed during this visit: yes Reason for continuing: Not indwelling catheter Insertion date: 07/21/18 Insertion time: 13:16 <Marcy Gardner - Last Filed: 08/06/18 17:27> Vital signs: Vital Signs 08/06/18 20:00 08/06/18 23:57 08/07/18 08:00 Temperature 98 F 97.7 F 97.8 F Pulse Rate 77 76 74 Respiratory Rate 18 18 18 Blood Pressure 89/53 L 106/56 L 144/62 H Pulse Oximetry 100 96 08/07/18 10:54 Temperature Pulse Rate Respiratory Rate Blood Pressure Pulse Oximetry 97 Intake & Output 08/06/18 08/07/18 08/07/18 18:59 06:59 18:59 Intake Total 1132 / 1132 200 / 200 Output Total 1200 / 1200 Balance -68 / -68 200 / 200 Intake: IV 100 / 100 200 / 200 Flagyl 500 MG Inj 100 ML @ 100 100 / 100 200 / 200 mls/hr IV.SIG Q8H [facility] Rx#: [id number] Oral 832 / 832 Other 200 / 200 Output: Urine 200 / 200 Hemodialysis Amount 1000 / 1000 Other: Other Intake Source Saline Solution # Voids 1 # Incontinent Voids 1 Date of Last Bowel Movement 08/05/18 08/05/18 # Bowel Movements 0 - Urinary Catheter Management Straight Cath placed during this visit: no <Juan Green - Last Filed: 08/07/18 18:14> Assessment and Plan - Assessment (1) End stage renal disease Code(s): N18.6 - End stage renal disease Status: Acute Plan: Continue with hemodialysis on Saturday, , and Saturday Plan Renal diet, high protein Avoid gadolinium and IVF administration. Recommend Left arm precautions- No Lab draws or B/P readings (L UE) Dr. Leal consulted for AVF access, will be done outpatient. Outpatient hemodialysis arranged for Saturday, , and Sat with chair time of 3:45 Hemodialysis planned for tomorrow will remove fluid as tolerated. (2) Anemia Code(s): D64.9 - Anemia, unspecified Status: Acute Onset Date: ~05/22/18 Qualifiers: Anemia type: due to chronic kidney disease Chronic kidney disease stage: stage 5, not on chronic dialysis Qualified Code(s): N18.5 - Chronic kidney disease, stage 5; D63.1 - Anemia in chronic kidney disease Plan: HGB stable Epogen with dialysis. Iron stores adequate <Marcy Gardner - Last Filed: 08/06/18 17:27> - Assessment (1) End stage renal disease Code(s): N18.6 - End stage renal disease Status: Acute Plan: Patient seen and examined, agree with above. Out patient HD arranged. Encourage oral intake. (2) Anemia Code(s): D64.9 - Anemia, unspecified Status: Acute Onset Date: ~05/22/18 Qualifiers: Anemia type: due to chronic kidney disease Chronic kidney disease stage: stage 5, not on chronic dialysis Qualified Code(s): N18.5 - Chronic kidney disease, stage 5; D63.1 - Anemia in chronic kidney disease <Juan Green - Last Filed: 08/07/18 18:14> Progress Note: Quality - AMI Clinical Trial Participant: No <Marcy Gardner - Last Filed: 08/06/18 17:27>
--- NOTE | 2018-08-06 19:15 | P.PNID ---
Subjective Remarks: no fever low grade CT results noted post void residuals reviewed with RN: [address] A/P was cancelled by undersigned Antibiotics: po vancomycin Allergies/Adverse Reactions: Allergies No Known Allergies Allergy (Unverified 07/21/18 11:29) Objective Vital Signs 08/05/18 20:00 08/06/18 00:00 08/06/18 04:00 Temperature 98.1 F 98.1 F 98.3 F Pulse Rate 64 86 82 Respiratory Rate 16 18 18 Blood Pressure 96/54 L 104/54 L 99/49 L Pulse Oximetry 100 100 96 08/06/18 08:00 08/06/18 12:00 08/06/18 16:00 Temperature 98.3 F 97.8 F 98 F Pulse Rate 83 73 72 Respiratory Rate 18 18 18 Blood Pressure 110/59 L 124/62 100/50 L Pulse Oximetry 98 100 99 08/06/18 17:38 Temperature Pulse Rate Respiratory Rate Blood Pressure Pulse Oximetry 99 Intake & Output 08/06/18 08/06/18 08/07/18 06:59 18:59 06:59 Intake Total 1200 / 1200 532 / 532 Output Total 100 / 100 1100 / 1100 Balance 1100 / 1100 -568 / -568 Weight 49.3 kg Intake: IV 1200 / 1200 100 / 100 Flagyl 500 MG Inj 100 ML @ 100 200 / 200 100 / 100 mls/hr IV.SIG Q8H [facility] Rx#: [id number] NS Inj 1,000 ML @ As Directed 1000 / 1000 OTHER .Q0M PRN Rx#:[id number] Oral 232 / 232 Other 200 / 200 Output: Urine 100 / 100 100 / 100 Hemodialysis Amount 1000 / 1000 Other: Other Intake Source Saline Solution # Voids 1 # Incontinent Voids 1 Date of Last Bowel Movement 08/05/18 07/30/18 17:26 Blood - Other Aerobic Blood Culture - Final No growth in 5 days 07/30/18 17:26 Blood - Other Anaerobic Blood Culture - Final No growth in 5 days Lab - Chemistry Results 08/04/18 08/05/18 08/05/18 22:25 08:10 11:35 POC Glucose 91 85 89 08/05/18 08/05/18 08/06/18 17:43 21:08 08:20 POC Glucose 78 97 83 08/06/18 08/06/18 11:42 18:34 POC Glucose 99 89 Imaging: ITS Impressions Cervical Spine CT 07/21/18 11:36 CONCLUSION: 1. No evidence of acute fracture, traumatic listhesis or significant soft tissue abnormality. 2. Severe degenerative disc disease with collapse of the disc and partial ankylosis at C3-4, C4-5 and C5-6. 3. Severe degenerative disc disease at C6-7 with foraminal encroachment. 4. Severe atlantoaxial degenerative disease 5. Reversal of normal cervical lordosis and mild degenerative anterolisthesis at C3-4. Upper Extremity Ultrasound 07/23/18 00:00 CONCLUSION: 1. Venous mapping study as described. Venous Doppler Study 07/23/18 00:00 CONCLUSION: 1. Negative exam with no evidence of deep venous thrombosis. Chest CT 07/24/18 00:00 CONCLUSION: 1. Patchy parenchymal infiltrates and small effusions. 2. Irregular nodules are identified in the left upper lobe. The dominant nodule is stable. The nodule just superior to this is a new finding. Head CT 07/24/18 15:38 CONCLUSION: 1. Negative CT Head non contrast. . Head MRI 07/25/18 07:03 CONCLUSION: 1. No acute intracranial findings. 2. Age-related findings. 3. Severe degenerative findings of the cervical spine. Head MRA 07/25/18 20:59 CONCLUSION: Brain MRA within normal limits. Chest X-Ray 07/30/18 06:00 CONCLUSION: 1. Stable patchy airspace disease in the right midlung. Abdomen/Pelvis CT 08/04/18 00:00 CONCLUSION: 1. Soft tissue mass inferior left side of the bladder probably originating from enlarged prostate gland. Both kidneys are hydronephrotic possibly obstruction without evidence of acute stone. 2. Dense atherosclerotic disease without aneurysm. 3. Gallstone in a noninflamed gallbladder Physical Exam: GENERAL: no distress, fully awake ill apparing cachectic shivering SKIN: Warm and dry. NO rash HEENT: PERRL. NO icteric sclerae No nasal bleeding or discharge. Mucous membranes moist NECK supple CARDIOVASCULAR: Regular rate and rhythm. RESPIRATORY: No accesssory muscle use very few b/l rhonchi to auscultation. Breath sounds decreased GASTROINTESTINAL: Abdomen soft, + mildly diffusely tender in RLQ/LLQ, no guarding, no rebound not distended. Hepatic and splenic margins not palpable. MUSCULOSKELETAL: Extremities without clubbing, cyanosis, or edema. NEUROLOGICAL: awake, follows commands. No obvious cranial nerve deficits. moves all 4 extremeties PSYCHIATRIC: calm, cooperative Assessment and Plan - Plan ESRD on HD thru Permcath placed few months ago Fever - - resolved source likely PNA. resolved PNA, clinically improved on zosyn, azithro HD cath infection? flu negative PNA: improved c.diff, new. Hypervirlent strain - on oral vanco, level is 8 Prostate/ bladder mass - pt still produces urine and reports interemittent voiding difficulties PLAN: cont oral vanco cosider urology consult to eval for prostate /bladder mass, If no s/o obstructive uropathy it can be done as o/p henderson placement recommended if unable to void dw Dr Johnson
[2018-08-07] MEDS: Insulin NovoLOG Aspart Correctional Sugar Inj SQ SCH ×3 (08:00→17:28)
[2018-08-07] MEDS: Senna/Docusate Sodium 8.6/50 MG Tablet PO SCH (09:00)
[2018-08-07 10:14] VITALS: BP 144/62; PULSE 74; TEMP 97.8
[2018-08-07 10:54] VITALS: O2SAT 97
[2018-08-07] MEDS: Heparin 10,000 UNITS/10 ML Vial (for IV use) OTHER PRN (10:56)
--- NOTE | 2018-08-07 13:38 | P.PNNP ---
Subjective Interval history: Seen during hemodialysis. Denies any shortness of breath, chest pain, dysuria, or difficulty with urination. <Marcy Gardner - Last Filed: 08/07/18 13:34> Physical Exam Vital signs: Vital Signs 08/06/18 16:00 08/06/18 17:38 08/06/18 20:00 Temperature 98 F 98 F Pulse Rate 72 77 Respiratory Rate 18 18 Blood Pressure 100/50 L 89/53 L Pulse Oximetry 99 99 100 08/06/18 23:57 08/07/18 08:00 08/07/18 10:54 Temperature 97.7 F 97.8 F Pulse Rate 76 74 Respiratory Rate 18 18 Blood Pressure 106/56 L 144/62 H Pulse Oximetry 96 97 Intake & Output 08/06/18 08/07/18 08/07/18 18:59 06:59 18:59 Intake Total 1132 / 1132 200 / 200 Output Total 1200 / 1200 Balance -68 / -68 200 / 200 Intake: IV 100 / 100 200 / 200 Flagyl 500 MG Inj 100 ML @ 100 100 / 100 200 / 200 mls/hr IV.SIG Q8H LALITO Rx#: [id number] Oral 832 / 832 Other 200 / 200 Output: Urine 200 / 200 Hemodialysis Amount 1000 / 1000 Other: Other Intake Source Saline Solution # Voids 1 # Incontinent Voids 1 Date of Last Bowel Movement 08/05/18 # Bowel Movements 0 Narrative: GENERAL: Alert and oriented. SKIN: Warm and dry. Left IJ permacath HEAD: Normocephalic. EYES: No scleral icterus. No injection or drainage. NECK: Supple, trachea midline. No JVD or lymphadenopathy. CARDIOVASCULAR: Regular rate and rhythm without murmurs, gallops, or rubs. RESPIRATORY: Breath sounds equal bilaterally. No accessory muscle use. GASTROINTESTINAL: Abdomen soft, non-tender, nondistended. MUSCULOSKELETAL: No cyanosis, or edema. BACK: Nontender without obvious deformity. No CVA tenderness. - Urinary Catheter Management Straight Cath placed during this visit: yes Reason for continuing: Not indwelling catheter Insertion date: 07/21/18 Insertion time: 13:16 <Marcy Gardner - Last Filed: 08/07/18 13:34> Vital signs: Vital Signs 08/06/18 20:00 08/06/18 23:57 08/07/18 08:00 Temperature 98 F 97.7 F 97.8 F Pulse Rate 77 76 74 Respiratory Rate 18 18 18 Blood Pressure 89/53 L 106/56 L 144/62 H Pulse Oximetry 100 96 08/07/18 10:54 Temperature Pulse Rate Respiratory Rate Blood Pressure Pulse Oximetry 97 Intake & Output 08/06/18 08/07/18 08/07/18 18:59 06:59 18:59 Intake Total 1132 / 1132 200 / 200 Output Total 1200 / 1200 Balance -68 / -68 200 / 200 Intake: IV 100 / 100 200 / 200 Flagyl 500 MG Inj 100 ML @ 100 100 / 100 200 / 200 mls/hr IV.SIG Q8H LALITO Rx#: [id number] Oral 832 / 832 Other 200 / 200 Output: Urine 200 / 200 Hemodialysis Amount 1000 / 1000 Other: Other Intake Source Saline Solution # Voids 1 # Incontinent Voids 1 Date of Last Bowel Movement 08/05/18 08/05/18 # Bowel Movements 0 - Urinary Catheter Management Straight Cath placed during this visit: no <Juan Green - Last Filed: 08/07/18 18:22> Assessment and Plan - Assessment (1) End stage renal disease Code(s): N18.6 - End stage renal disease Status: Acute Plan: Continue with hemodialysis on Saturday, , and Saturday Plan Renal diet, high protein Avoid gadolinium and IVF administration. Recommend Left arm precautions- No Lab draws or B/P readings (L UE) Dr. Leal consulted for AVF access, will be done outpatient. Outpatient hemodialysis arranged for Saturday, , and Sat with chair time of 3:45 Seen during hemodialysis tolerating well, 2 K bath will remove fluid as tolerated. (2) Anemia Code(s): D64.9 - Anemia, unspecified Status: Acute Onset Date: ~05/22/18 Qualifiers: Anemia type: due to chronic kidney disease Chronic kidney disease stage: stage 5, not on chronic dialysis Qualified Code(s): N18.5 - Chronic kidney disease, stage 5; D63.1 - Anemia in chronic kidney disease Plan: HGB stable Epogen with dialysis. Iron stores adequate <Marcy Gardner - Last Filed: 08/07/18 13:34> - Assessment (1) End stage renal disease Code(s): N18.6 - End stage renal disease Status: Acute Plan: Patient seen and examined, agree with above. Seen after HD. Diarrhea is better. (2) Anemia Code(s): D64.9 - Anemia, unspecified Status: Acute Onset Date: ~05/22/18 Qualifiers: Anemia type: due to chronic kidney disease Chronic kidney disease stage: stage 5, not on chronic dialysis Qualified Code(s): N18.5 - Chronic kidney disease, stage 5; D63.1 - Anemia in chronic kidney disease <Juan Green - Last Filed: 08/07/18 18:22> Progress Note: Quality - AMI Clinical Trial Participant: No <Marcy Gardner - Last Filed: 08/07/18 13:34>
--- NOTE | 2018-08-07 17:07 | P.DS ---
Date of admission: 07/23/18 12:55 Primary care physician: UNKNOWN Anticipated date of discharge: 08/07/18 Brief History from admission: pt had syncopal episode when arising after eating yesterday DS: Diagnosis - Discharge Diagnosis (1) End stage renal disease Status: Acute (2) Syncope and collapse Status: Acute (3) Pneumonia Status: Resolved (4) Clostridial gastroenteritis Status: Acute (5) Severe protein-calorie malnutrition Status: Acute DS: Summary Hospital Course: Patient was admitted for suspected syncopal episode. Neurology was consulted. CT of the head was negative for acute process. EMS reported patient was initially hypotensive with orthostatic changes. Nephrology Dr Granados consulted for HD, patient voiced he did believe that he need to continue dialysis, he wanted second opinion. Dr Green consulted, as well as pallitive care r/t him not wanting to continue dialyses. He finally agreed to dialysis, seen by vascular to set up for AV fistula as outpatient. He developed fever, ID consulted. BC negative, negative for Flu. He was treated with Iv vanco, azithro for PNA, developed diarrhea, positive for Cdiff, IV vanco stopped po started. CT of abdomen done for persistent abdominal pain, CT showed soft tissue mass w/ hydronephrotic possible obstruction. He was set up for Urology outpatient DC to snf - Time Spent with Patient Total time spent providing and/or coordinating discharge services: 45 Greater than 30 minutes - Quality: AMI Clinical Trial Participant: No - Quality: Stroke Symptom Onset Unknown: No - Quality: VTE Is this test being ordered to rule out VTE?: No Deep Vein Thrombosis/Pulmonary Embolism Present on Admission: No Exam Vital signs: Vital Signs 08/06/18 17:38 08/06/18 20:00 08/06/18 23:57 Temperature 98 F 97.7 F Pulse Rate 77 76 Respiratory Rate 18 18 Blood Pressure 89/53 L 106/56 L Pulse Oximetry 99 100 08/07/18 08:00 08/07/18 10:54 Temperature 97.8 F Pulse Rate 74 Respiratory Rate 18 Blood Pressure 144/62 H Pulse Oximetry 96 97 Intake & Output 08/06/18 08/07/18 08/07/18 18:59 06:59 18:59 Intake Total 1132 / 1132 200 / 200 Output Total 1200 / 1200 Balance -68 / -68 200 / 200 Intake: IV 100 / 100 200 / 200 Flagyl 500 MG Inj 100 ML @ 100 100 / 100 200 / 200 mls/hr IV.SIG Q8H LALITO Rx#: [id number] Oral 832 / 832 Other 200 / 200 Output: Urine 200 / 200 Hemodialysis Amount 1000 / 1000 Other: Other Intake Source Saline Solution # Voids 1 # Incontinent Voids 1 Date of Last Bowel Movement 08/05/18 08/05/18 # Bowel Movements 0 Results Procedures completed during hospitalization: dialysis Tues/Thurs/ Sat Labs on day of discharge: Labs from last 24 hours 08/07/18 08/07/18 08/07/18 13:36 12:30 10:10 POC Glucose 99 76 198 H 08/07/18 08/07/18 08/06/18 09:03 08:24 20:44 POC Glucose 66 L 67 L 104 08/06/18 18:34 POC Glucose 89 - Impressions ITS Impressions Cervical Spine CT 07/21/18 11:36 CONCLUSION: 1. No evidence of acute fracture, traumatic listhesis or significant soft tissue abnormality. 2. Severe degenerative disc disease with collapse of the disc and partial ankylosis at C3-4, C4-5 and C5-6. 3. Severe degenerative disc disease at C6-7 with foraminal encroachment. 4. Severe atlantoaxial degenerative disease 5. Reversal of normal cervical lordosis and mild degenerative anterolisthesis at C3-4. Upper Extremity Ultrasound 07/23/18 00:00 CONCLUSION: 1. Venous mapping study as described. Venous Doppler Study 07/23/18 00:00 CONCLUSION: 1. Negative exam with no evidence of deep venous thrombosis. Chest CT 07/24/18 00:00 CONCLUSION: 1. Patchy parenchymal infiltrates and small effusions. 2. Irregular nodules are identified in the left upper lobe. The dominant nodule is stable. The nodule just superior to this is a new finding. Head CT 07/24/18 15:38 CONCLUSION: 1. Negative CT Head non contrast. . Head MRI 07/25/18 07:03 CONCLUSION: 1. No acute intracranial findings. 2. Age-related findings. 3. Severe degenerative findings of the cervical spine. Head MRA 07/25/18 20:59 CONCLUSION: Brain MRA within normal limits. Chest X-Ray 07/30/18 06:00 CONCLUSION: 1. Stable patchy airspace disease in the right midlung. Abdomen/Pelvis CT 08/04/18 00:00 CONCLUSION: 1. Soft tissue mass inferior left side of the bladder probably originating from enlarged prostate gland. Both kidneys are hydronephrotic possibly obstruction without evidence of acute stone. 2. Dense atherosclerotic disease without aneurysm. 3. Gallstone in a noninflamed gallbladder Discharge Plan - Discharge Disposition Patient Disposition: 03 Discharge to SNF - Discharge Condition Condition: Stable - Discharge Order Discharge Orders: Discharge Order (Routine); Ordered 08/07/18 Ordered By: Jocy Anguiano - Discharge Details Anticipated Discharge Date: 07/30/18 - Physicians Team Primary Care Provider: UNKNOWN, Attending Provider: Nishant Johnson Other Providers: Cee Granados MD ; Saleem Reilly MD, PhD ; Sukumar Jurado MD ; Juan Green MD ; Laureen Mariee MD ; Hubert Leal MD ; L[facility] ; [facility]
[2018-08-07] MEDS: Acetaminophen/Codeine 300/30 MG Tablet PO PRN (17:34)
== END 2018-08-07 18:01 ==
LOC: NEPE 11:24 → NEDA 11:24 → NEPGCP 19:14 → N07 07-24 11:30 → N05 07-24 11:46
PROVIDERS: ADMIT Family Medicine; ATTEND Family Medicine

== ENCOUNTER 2018-09-16 17:03 | Inpatient (IN) ==
--- NOTE | 2018-09-16 17:40 | ED ---
HPI General Chief complaint: Extremity Injury, Lower Stated complaint: Patient states rt knee pain Time Seen by Provider: 09/16/18 17:19 Source: patient and family History of Present Illness HPI narrative: Patient is an 83-year-old male who presents the emergency room from home for evaluation of right knee pain as well as reports that he needs dialysis. Patient reports that he has end-stage renal disease and he is currently on hemodialysis every Tuesdays, and Saturdays at [facility]. He is a patient of Dr. Granados and Dr. Green. Patient reports that he has been falling and recently fell and hurt his right knee. Patient denies any trauma to his head and neck, patient reports swollen right knee. Patient reports the pain is severe, it is hard for him to ambulate. In addition, patient also reports that for the last week, he has not been able to go to dialysis. Patient is unsure when he last went to dialysis, reports that the bus to bring him to dialysis never showed up. Patient with no chest pain or shortness of breath, patient with no other complaints. Related Data Home Medications Medication Instructions Recorded Confirmed albuterol sulfate [Ventolin HFA] 2 puff INHALATION Q4H PRN 09/16/18 09/16/18 brimonidine [Alphagan P] 1 drp EACH EYE BID 09/16/18 09/16/18 [id number]-azzvbrsyqbjix-dbwp 1 cap PO Q4H PRN 09/16/18 09/16/18 [Fioricet] doxepin 25 mg PO HS 09/16/18 09/16/18 fluticasone-salmeterol [Advair 1 puff INHALATION BID 09/16/18 09/16/18 Diskus] gabapentin 100 mg PO BID 09/16/18 09/16/18 latanoprost [Xalatan] 1 drp EACH EYE QPM 09/16/18 09/16/18 losartan 50 mg PO DAILY 09/16/18 09/16/18 prednisone 10 mg PO DAILY 09/16/18 09/16/18 pregabalin [Lyrica] 25 mg PO TID 09/16/18 09/16/18 tamsulosin 0.8 mg PO HS 09/16/18 09/16/18 Allergies Allergy/AdvReac Type Severity Reaction Status Date / Time No Known Allergies Allergy Verified 09/16/18 17:22 Review of Systems ROS: all other systems reviewed are negative [facility] Medical History Medical History BPH loc w urin obs/LUTS (Acute) COPD (chronic obstructive pulmonary disease) (Acute) Hypertension (Acute) Anemia (Acute) Degenerative disc disease (Acute) ESRD (end stage renal disease) on dialysis (Acute) GERD (gastroesophageal reflux disease) (Acute) History of alcohol dependence (Acute) History of squamous cell carcinoma (Acute) Surgical History Surgical History H/O hernia repair (Acute) Family History Family History Other Family history of cancer Social History Social History Substance History: No History of Abuse Second Hand Smoke Exposure: No Smoking Status: Former smoker Tobacco Type: Cigarettes Packs Per Day: 2 Cigarettes Per Day: 40.0 Years Smoked: 40 Pack-Years: 80.00 years: 80 How Often Do You Have a Drink Containing Alcohol: Never Recent Travel in [facility] within the Last 8 Weeks: No Recent Out of Country Travel within the Last 8 Weeks: No Immunization History Tetanus Immunization: Unsure Exam Narrative Exam Narrative: GENERAL: No acute distress, nontoxic SKIN: Focused skin assessment warm/dry. HEAD: Atraumatic. Normocephalic. EYES: Pupils equal and round. No scleral icterus. No injection or drainage. ENT: No nasal bleeding or discharge. Mucous membranes pink and moist. NECK: Trachea midline. No JVD. CARDIOVASCULAR: Regular rate and rhythm. No murmur appreciated. Patient with a permacath in place RESPIRATORY: No accessory muscle use. Clear to auscultation. Breath sounds equal bilaterally. GASTROINTESTINAL: Abdomen soft, non-tender, nondistended. Hepatic and splenic margins not palpable. MUSCULOSKELETAL: No obvious deformities. No clubbing. No cyanosis. Patient with pain with range of motion to his right knee, he does have an effusion - there is no redness or signs of cellulitis, there is no increased warmth to his knee, no obvious fracture NEUROLOGICAL: Awake and alert. No obvious cranial nerve deficits. Motor grossly within normal limits. Normal speech. PSYCHIATRIC: Appropriate mood and affect; insight and judgment normal. Course Initial Documented Vital Signs Temperature 98.3 F 09/16/18 17:15 Pulse Rate 94 H 09/16/18 17:15 Respiratory Rate 24 09/16/18 17:15 Blood Pressure 114/64 09/16/18 17:15 Pulse Oximetry 98 09/16/18 17:15 Last Documented Vital Signs Temperature 98.3 F 09/16/18 17:15 Pulse Rate 94 H 09/16/18 17:15 Respiratory Rate 24 09/16/18 17:15 Blood Pressure 114/64 09/16/18 17:15 Pulse Oximetry 98 09/16/18 17:15 Medical Decision Making MDM Narrative Medical decision making narrative: During the course of the patients emergency department visit, the patients history, examination, and differential diagnosis were reviewed with the patient. The patient was placed on a cardiac exercise physiologist with oximetry and frequent blood pressure monitoring. The patient had an IV access obtained and blood work sent for analysis. X-ray of his right knee was ordered as he has a obvious effusion - xray was ordered to evaluate for possible fracture case reviewed with Dr. Johnson, plan to admit to the hospital for observation as patient cannot walk with his knee pain - he lives by himself and also needs dialysis which he will not get tomorrow if he cannot walk - plan to obs overnight - nephrology has been consulted for dialysis tomorrow. Pt has been consulted to help with discharge planning Medical Screen Exam Complete: Yes Emergency Medical Condition: Yes Differential Diagnosis Differential Diagnosis: knee effusion/fracture, electrolyte abnormality Medical Records Medical records reviewed: Yes I reviewed the patient's medical records. Lab Data Lab results reviewed: Yes I reviewed the patient's lab results. Result diagrams: 09/16/18 17:45 09/16/18 17:45 Lab Results 09/16/18 09/16/18 09/16/18 Range/Units 17:45 17:45 17:45 WBC 6.4 (4.0-11.0) th/mm3 RBC 3.01 L (4.50-5.90) mil/mm3 Hgb 9.0 L (13.0-17.0) gm/dL Hct 28.8 L (39.0-51.0) % MCV 95.7 (80.0-100.0) fL MCH 30.0 (27.0-34.0) pg MCHC 31.4 L (32.0-36.0) % RDW 19.1 H (11.6-17.2) % Plt Count 250 (150-450) th/mm3 MPV 8.0 (7.0-11.0) fL Prelim Diff (Auto) Slide review pending Neut % (Auto) 92.0 H (16.0-70.0) % Lymph % (Auto) 3.1 L (9.0-44.0) % [place] % (Auto) 4.3 (0.0-8.0) % Eos % (Auto) 0.2 (0.0-4.0) % Baso % (Auto) 0.4 (0.0-2.0) % Neut # (Auto) 5.9 (1.8-7.7) th/mm3 Lymph # (Auto) 0.2 L (1.0-4.8) th/mm3 [place] # (Auto) 0.3 (0.0-0.9) th/mm3 Eos # (Auto) 0.0 (0.0-0.4) th/mm3 Baso # (Auto) 0.0 (0.0-0.2) th/mm3 WBC Differential . Differential Comment Auto diff final PT 10.3 (9.8-11.6) sec INR 1.0 Ratio APTT 24.3 (23.4-31.7) sec Sodium 138 (136-145) meq/L Potassium 4.8 (3.5-5.1) meq/L Chloride 105 (98-107) meq/L Carbon Dioxide 24.0 (21.0-32.0) meq/L Anion Gap 9 (5-15) meq/L BUN 78 H (7-18) mg/dL Creatinine 3.16 H (0.60-1.30) mg/dL Estimated GFR 23 L (>89) mL/min Random Glucose 120 H (74-106) mg/dL Calcium 8.6 (8.5-10.1) mg/dL Magnesium 1.6 (1.5-2.5) mg/dL Total Bilirubin 0.2 (0.2-1.0) mg/dL AST 72 H (15-37) U/L ALT 56 (12-78) U/L Alkaline Phosphatase 90 (45-117) U/L Total Protein 7.8 (6.4-8.2) g/dL Albumin 2.5 L (3.4-5.0) g/dL Lipase 139 (73-393) U/L Imaging Data Attestation: I personally reviewed and interpreted this imaging study as follows : Radiologist's impression: Chest X-Ray 09/16/18 17:36 CONCLUSION: Emphysema and scarring without perceptible acute infiltrate. Knee X-Ray 09/16/18 17:36 CONCLUSION: 1. No acute fracture or subluxation of the right knee. 2. Nonspecific joint effusion. 3. Gczo-tt-gmbrmbob tricompartment osteoarthritis. Chondrocalcinosis of the meniscal cartilages. 4. 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 5. Atherosclerotic plaque of the popliteal artery. ECG Data EKG Prior to Arrival: No Interpretation: EKG at 1822: NSR at 92bpm, no acute st or t wave changes Discharge Plan Discharge Disposition Patient Disposition: 30 Still Patient Discharge Condition Condition: Good Discharge Details Diagnosis: Gait instability, Effusion of left knee Physicians Team ED Provider: Ariane Bell Primary Care Provider: Nishant Johnson Rxs /Orders / Referrals /Forms Prescriptions: No Action losartan 50 mg Tablet 50 mg PO DAILY RF: 0 latanoprost [Xalatan] 0.005 % Drops 1 drp EACH EYE QPM RF: 0 fluticasone-salmeterol [Advair Diskus] 250-50 mcg/dose Blister With Device 1 puff INHALATION BID RF: 0 prednisone 10 mg Tablet 10 mg PO DAILY RF: 0 gabapentin 100 mg Capsule 100 mg PO BID RF: 0 albuterol sulfate [Ventolin HFA] 90 mcg/actuation Hfa Aerosol Inhaler 2 puff INHALATION Q4H PRN (Reason: Shortness Of Breath) RF: 0 pregabalin [Lyrica] 25 mg Capsule 25 mg PO TID RF: 0 brimonidine [Alphagan P] 0.1 % Drops 1 drp EACH EYE BID RF: 0 fvwvndkpjg-tlumlqvapjxan-daup [Fioricet] 50-300-40 mg Capsule 1 cap PO Q4H PRN (Reason: Headache) RF: 0 doxepin 25 mg capsule 25 mg PO HS RF: 0 tamsulosin 0.4 mg capsule 0.8 mg PO HS RF: 0 Status ED Status: With Doctor
--- NOTE | 2018-09-16 18:04 | XR ---
EXAM DATE: 09/16/2018 5:58 PM EST AGE/SEX: 83 years / Male INDICATIONS: Short of breath. CLINICAL DATA: This is the patient's initial encounter. Patient reports that signs and symptoms have been present for 1 week and indicates a pain score of 0/10. MEDICAL/SURGICAL HISTORY: . Chronic obstructive pulmonary disease. Hypertension. Renal disease, end stage . Dialysis catheter COMPARISON: [facility], CHEST 2V AP&LAT, 05/31/2018. . FINDINGS: Emphysema and chronic pleural and parenchymal scarring again noted. No acute pneumonia seen. No pleur al effusion or pneumothorax. Heart size stable, within normal limits. Subcentimeter foreign object projects over the right subclavian region, chronic. There is a right in ternal jugular tunneled double lumen dialysis catheter with distal tip at the atriocaval junction. CONCLUSION: Emphysema and scarring without perceptible acute infiltrate. Electronically signed by: Jerrod Jordan MD 09/16/2018 6:02 PM EST
--- NOTE | 2018-09-16 18:16 | XR ---
EXAM DATE: 09/16/2018 6:00 PM EST AGE/SEX: 83 years / Male INDICATIONS: Inflammation. Fall one week ago. limited movement. CLINICAL DATA: This is the patient's initial encounter. Patient reports that signs and symptoms have been present for 1 week and indicates a pain score of 8/10. MEDICAL/SURGICAL HISTORY: . Chronic obstructive pulmonary disease. Hypertension. Renal disease, end stage . Dialysis catheter. COMPARISON: No prior exams available for comparison. FINDINGS: No fracture or subluxation demonstrated of the right knee. Chondrocalcinosis of the meniscal cartilag es and mild to moderate tricompartment osteoarthritis present. There is a moderate to large joint eff usion. Patchy sclerosis seen in the medullary space of the proximal tibia consistent with an old infarct. Th e subchondral regions are not involved. There is patchy atherosclerotic plaque of the popliteal artery. CONCLUSION: 1. No acute fracture or subluxation of the right knee. 2. Nonspecific joint effusion. 3. Icor-km-okhxfkrt tricompartment osteoarthritis. Chondrocalcinosis of the meniscal cartilages. 4. 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 5. Atherosclerotic plaque of the popliteal artery. Electronically signed by: Jerrod Jordan MD 09/16/2018 6:15 PM EST
[2018-09-16 18:21] LABS: Baso % (Auto) 0.4 % (0.0-2.0); Eos % (Auto) 0.2 % (0.0-4.0); Hematocrit 28.8 % (39.0-51.0); Lymph # (Auto) 0.2 th/mm3 (1.0-4.8); Lymph % (Auto) 3.1 % (9.0-44.0); Mean Corpuscular HGB Conc 31.4 % (32.0-36.0); Mean Corpuscular Volume 95.7 fL (80.0-100.0); Mono # (Auto) 0.3 th/mm3 (0.0-0.9); Mono % (Auto) 4.3 % (0.0-8.0); Neut # (Auto) 5.9 th/mm3 (1.8-7.7); Platelet Count 250 th/mm3 (150-450); Red Blood Count 3.01 mil/mm3 (4.50-5.90); Red Cell Distribution Width 19.1 % (11.6-17.2); White Blood Count 6.4 th/mm3 (4.0-11.0)
[2018-09-16 18:36] LABS: Activated Partial Thrombo Time 24.3 sec (23.4-31.7); Prothrombin Time 10.3 sec (9.8-11.6)
[2018-09-16 18:57] LABS: Albumin 2.5 g/dL (3.4-5.0); Anion Gap 9 meq/L (5-15); Aspartate Aminotransferase 72 U/L (15-37); Blood Urea Nitrogen 78 mg/dL (7-18); Calcium 8.6 mg/dL (8.5-10.1); Chloride 105 meq/L (98-107); Glomerular Filtration Rate 23 mL/min (>89); Glucose,Random 120 mg/dL (74-106); Lipase 139 U/L (73-393); Magnesium 1.6 mg/dL (1.5-2.5); Potassium 4.8 meq/L (3.5-5.1); Sodium 138 meq/L (136-145)
[2018-09-16 18:58] LABS: Alanine Aminotransferase 56 U/L (12-78)
[2018-09-16 19:00] LABS: Alkaline Phosphatase 90 U/L (45-117); Total Protein 7.8 g/dL (6.4-8.2)
--- NOTE | 2018-09-17 08:30 | P.HPFP ---
History of Present Illness Primary Care Physician: Nishant Johnson DO History of Present Illness: 83-year-old male well known to our services, recently DC from [facility] to home with nephew, presents the emergency room for evaluation of right knee pain as well as reports that he needs dialysis. He has end-stage renal disease and he is currently on hemodialysis every Tuesdays, and Saturdays at [facility] dialysis. He is known to not be compliant with his treatment's. He is a patient of Dr. Granados and Dr. Green. 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 He states the bus never cam for him with dialysis, and then continues to say that the time he is schediuled for is inconvenient for him. He does have effusion to R knee, ortho has been consulted , will get him scheduled for dialysis. - Diagnosis (1) Effusion of left knee (2) ESRD (end stage renal disease) (3) Acute exacerbation of COPD with asthma (4) Hypertension (5) Neuropathy (6) Gait instability Inpatient Certification: I certify that the inpatient services were ordered in accordance with Medicare regulations governing the order. This includes certification that hospital inpatient services are reasonable and necessary and in the case of services not specified as inpatient-only under 42 CFR 419.22(n), that they are appropriately provided as inpatient services in accordance to with the 2-midnight benchmark under 43 CFR 412.3(e) Estimated Total Length of Stay (Days): 3 Plans for Post Hospital Care: SNF [facility] - History History Provided By: Patient - Medical History Medical History: Medical History (Last Reviewed 09/16/18 @ 17:42 by Ariane Bell) BPH loc w urin obs/LUTS (Acute) COPD (chronic obstructive pulmonary disease) (Acute) Hypertension (Acute) Anemia Degenerative disc disease ESRD (end stage renal disease) on dialysis GERD (gastroesophageal reflux disease) History of alcohol dependence History of squamous cell carcinoma - Surgical History Surgical History: Surgical History (Last Reviewed 09/16/18 @ 17:42 by Ariane Bell) H/O hernia repair - Family History Family History: Family History (Last Reviewed 09/16/18 @ 17:42 by Ariane Bell) Other Family history of cancer - Tobacco History Second Hand Smoke Exposure: No Tobacco Use In Past 30 Days: No Smoking Status: Former smoker Tobacco Type: Cigarettes Packs Per Day: 2 Cigarettes Per Day: 40 Years Smoked: 40 years: 80 - Alcohol History How Often Do You Have a Drink Containing Alcohol: Never - Substance Use History Substance History: No History of Abuse - Travel History Recent Travel in the [place] Within the Last 8 Weeks: No Recent Travel Out of the Country Within the Last 8 Weeks: No - Immunization History Tetanus Immunization: <5 Years Hx Influenza Vaccine This Season: Yes Medications and Allergies Active Medications: Active Medications Hydrocodone Bitart/Acetaminophen ([place] 5/325) 1 tab PO Q4H PRN PRN Reason: PAIN 1-10 Doxepin HCl (Sinequan) 25 mg PO HS [facility] Losartan Potassium (Cozaar) 50 mg PO DAILY [facility] Non-Formulary Medication (Brimonidine [Alphagan P]) 1 drp EACH EYE BID [facility] Non-Formulary Medication (Dfcihlckap-Zlzquprqerhbz-Gosm [Fioricet]) 1 cap PO Q4H PRN PRN Reason: Headache Non-Formulary Medication (Fluticasone-Salmeterol [Advair Diskus]) 1 puff INHALATION BID [facility] Non-Formulary Medication (Albuterol Sulfate) 2 puff INHALATION Q4H PRN PRN Reason: Shortness Of Breath Prednisone (Deltasone) 10 mg PO DAILY [facility] Pregabalin (Lyrica) 25 mg PO TID [facility] Sodium Chloride (Ns Flush) 2 ml IV.FLUSH PRN PRN PRN Reason: FLUSH AFTER USING IV ACCESS Tamsulosin HCl (Flomax) 0.8 mg PO HS [facility] Allergies Allergy/AdvReac Type Severity Reaction Status Date / Time No Known Allergies Allergy Verified 09/16/18 17:22 Home Medications Medication Instructions Recorded Confirmed Type albuterol sulfate [Ventolin HFA] 2 puff INHALATION Q4H PRN 09/16/18 09/16/18 History brimonidine [Alphagan P] 1 drp EACH EYE BID 09/16/18 09/16/18 History wkrhvnnklx-bwbpdajrddxej-mseo 1 cap PO Q4H PRN 09/16/18 09/16/18 History [Fioricet] doxepin 25 mg PO HS 09/16/18 09/16/18 History fluticasone-salmeterol [Advair 1 puff INHALATION BID 09/16/18 09/16/18 History Diskus] gabapentin 100 mg PO BID 09/16/18 09/16/18 History latanoprost [Xalatan] 1 drp EACH EYE QPM 09/16/18 09/16/18 History losartan 50 mg PO DAILY 09/16/18 09/16/18 History prednisone 10 mg PO DAILY 09/16/18 09/16/18 History pregabalin [Lyrica] 25 mg PO TID 09/16/18 09/16/18 History tamsulosin 0.8 mg PO HS 09/16/18 09/16/18 History Exam Vital signs: Vital Signs 09/16/18 17:15 09/16/18 21:03 09/16/18 21:05 Temperature 98.3 F 97.9 F Pulse Rate 94 H 80 76 Respiratory Rate 24 18 Blood Pressure 114/64 135/73 Pulse Oximetry 98 100 09/16/18 23:38 09/17/18 00:09 09/17/18 04:00 Temperature 98.3 F 97.6 F 97.2 F L Pulse Rate 82 81 68 Respiratory Rate 16 16 17 Blood Pressure 119/69 129/70 110/51 L Pulse Oximetry 100 97 96 Intake & Output 09/16/18 09/17/18 09/17/18 18:59 06:59 18:59 Output Total 800 / 800 Balance -800 / -800 Weight 51.71 kg 45.8 kg Output: Urine 800 / 800 Other: Date of Last Bowel Movement 09/16/18 Weight On Admission 47.5 kg - Constitutional no acute distress - Routine HEENT Exam Eye: Present: PERRL ENT: Present: mucous membranes moist - Routine Neck Exam Present: supple - Routine Respiratory Exam Present: wheezes, diminished air movement - Routine Cardiovascular Exam Present: S1, S2 - Routine Abdominal Exam Present: soft, normoactive bowel sounds - Routine Extremities Exam Present: edema - Routine Skin Exam Present: dry, warm - Routine Neurological Exam Present: alert Results - Labs Result diagrams: 09/16/18 17:45 09/16/18 17:45 Abnormal lab results 09/16/18 09/16/18 Range/Units 17:45 17:45 RBC 3.01 L (4.50-5.90) mil/mm3 Hgb 9.0 L (13.0-17.0) gm/dL Hct 28.8 L (39.0-51.0) % MCHC 31.4 L (32.0-36.0) % RDW 19.1 H (11.6-17.2) % Neut % (Auto) 92.0 H (16.0-70.0) % Lymph % (Auto) 3.1 L (9.0-44.0) % Lymph # (Auto) 0.2 L (1.0-4.8) th/mm3 BUN 78 H (7-18) mg/dL Creatinine 3.16 H (0.60-1.30) mg/dL Estimated GFR 23 L (>89) mL/min Random Glucose 120 H (74-106) mg/dL AST 72 H (15-37) U/L Albumin 2.5 L (3.4-5.0) g/dL Short CBC 09/16/18 Range/Units 17:45 WBC 6.4 (4.0-11.0) th/mm3 Hgb 9.0 L (13.0-17.0) gm/dL Hct 28.8 L (39.0-51.0) % Plt Count 250 (150-450) th/mm3 BMP 09/16/18 17:45 Sodium 138 Potassium 4.8 Chloride 105 Carbon Dioxide 24.0 BUN 78 H Creatinine 3.16 H Calcium 8.6 Liver Function 09/16/18 Range/Units 17:45 Total Bilirubin 0.2 (0.2-1.0) mg/dL AST 72 H (15-37) U/L ALT 56 (12-78) U/L Alkaline Phosphatase 90 (45-117) U/L Albumin 2.5 L (3.4-5.0) g/dL - Imaging Impressions Chest X-Ray 09/16/18 17:36 CONCLUSION: Emphysema and scarring without perceptible acute infiltrate. Knee X-Ray 09/16/18 17:36 CONCLUSION: 1. No acute fracture or subluxation of the right knee. 2. Nonspecific joint effusion. 3. Ypqf-di-rpoikbkw tricompartment osteoarthritis. Chondrocalcinosis of the meniscal cartilages. 4. 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 5. Atherosclerotic plaque of the popliteal artery. Caprini VTE Risk Assessment Caprini VTE Risk Assessment: Moderate/High Risk (score >= 2) (Heprin bid) Caprini Risk Assessment Model: Point Value = 1 Point Value = 2 Point Value = 3 Point Value = 5 Age 41-60 Minor surgery BMI > 25 kg/m2 Swollen legs Varicose veins or History of unexplained or recurrent spontaneous Oral contraceptives or hormone replacement Sepsis (< 1 month) Serious lung disease, including pneumonia (< 1 month) Abnormal pulmonary function Acute myocardial infarction Congestive heart failure (< 1 month) History of inflammatory bowel disease Medical patient at bed rest Age 61-74 Arthroscopic surgery Major open surgery (> 45 min) Laparoscopic surgery (> 45 min) Malignancy Confined to bed (> 72 hours) Immobilizing plaster cast Central venous access Age >= 75 History of VTE Family history of VTE Factor V Leiden Prothrombin [id number] Lupus anticoagulant Anticardiolipin antibodies Elevated serum homocysteine Heparin-induced thrombocytopenia Other congenital or acquired thrombophilia Stroke (< 1 month) Elective arthroplasty Hip, pelvis, or leg fracture Acute spinal cord injury (< 1 month) Prophylaxis Regimen: Total Risk Factor Score Risk Level Prophylaxis Regimen 0-1 Low Early ambulation 2 Moderate Order ONE of the following: *Sequential Compression Device (SCD) *Heparin 5000 units SQ BID 3-4 Higher Order ONE of the following medications: *Heparin 5000 units SQ TID *Enoxaparin/Lovenox 40 mg SQ daily (WT < 150 kg, CrCl > 30 mL/min) *Enoxaparin/Lovenox 30 mg SQ daily (WT < 150 kg, CrCl > 10-29 mL/min) *Enoxaparin/Lovenox 30 mg SQ BID (WT < 150 kg, CrCl > 30 mL/min) AND/OR *Sequential Compression Device (SCD) 5 or more Highest Order ONE of the following medications: *Heparin 5000 units SQ TID (Preferred with Epidurals) *Enoxaparin/Lovenox 40 mg SQ daily (WT < 150 kg, CrCl > 30 mL/min) *Enoxaparin/Lovenox 30 mg SQ daily (WT < 150 kg, CrCl > 10-29 mL/min) *Enoxaparin/Lovenox 30 mg SQ BID (WT < 150 kg, CrCl > 30 mL/min) AND *Sequential Compression Device (SCD) Assessment and Plan - Assessment (1) Effusion of left knee Code(s): M25.462 - Effusion, left knee Status: Acute Plan: Ortho consult (2) ESRD (end stage renal disease) Code(s): N18.6 - End stage renal disease Status: Acute Plan: non compliant with dialysis, will get scheduled for HD (3) Acute exacerbation of COPD with asthma Code(s): J44.1 - Chronic obstructive pulmonary disease with (acute) exacerbation ; J45.901 - Unspecified asthma with (acute) exacerbation Status: Resolved Onset Date: ~05/22/18 Plan: Oxygen support, bronchodilators, encouraged to Stop smoking (4) Hypertension Code(s): I10 - Essential (primary) hypertension Status: Resolved Plan: Cont home medications. Monitor (5) Neuropathy Code(s): G62.9 - Polyneuropathy, unspecified Status: Acute Plan: Cont Lyrica (6) Gait instability Code(s): R26.81 - Unsteadiness on feet Status: Acute Plan: Will get Pt to eval once cleared b ortho - Assessment and Plan Patient has been at home with nephew, he is not there all the time, he has had several admissions and is clearly not able to care for self. He has agreed to go back to [facility], will get CM to refer, for SNF with hopes he can transition to LTC. H&P: Quality - VTE Deep Vein Thrombosis/Pulmonary Embolism Present on Admission: No (4) Hypertension Qualifiers:
[2018-09-17] MEDS ORDERED: Butalbital/APAP/Caff 50/325/40 MG Tablet PO PRN (09:00)
--- NOTE | 2018-09-17 09:13 | P.CONOP ---
[facility] - [facility] Consult date: 09/17/18 Consult reason: joint pain Chief complaint: Gait Instability, Knee Effusion, ESRD on HD Narrative: 83-year-old male well known to our services, recently DC from [facility] to home with nephew, presents the emergency room for evaluation of right knee pain as well as reports that he needs dialysis. He has end-stage renal disease and he is currently on hemodialysis every Tuesdays, and Saturdays at [facility] dialysis. He is known to not be compliant with his treatment's. He is a patient of Dr. Granados and Dr. Green. 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 He states the bus never cam for him with dialysis, and then continues to say that the time he is scheduled for is inconvenient for him. He states that he has had issues with osteoarthritis of his right knee for some time now. He reports he recently had a fall at home. He states that his pain has increased significantly since his fall. He denies any difference in swelling of his knee that is normal for him. He denies any erythema or fevers. He states that he is able to move his knee with minimal discomfort. He states that he does have stiffness but that is normal for him. <Constantino Aviles - Last Filed: 09/17/18 09:04> Review of Systems Patient denies any fevers, weight loss, headache, visual changes, hearing loss, chest pain, palpitations, shortness of breath, nausea, vomiting, urinary changes , neck or back pain, skin rashes, weakness or numbness of extremities, or depression. All other systems reviewed negative except as stated in HPI <Constantino Aviles - Last Filed: 09/17/18 09:04> PMFSH - History History Provided By: Patient - Medical History Medical History: Medical History (Last Reviewed 09/17/18 @ 09:09 by JENNIE Dang) BPH loc w urin obs/LUTS (Acute) COPD (chronic obstructive pulmonary disease) (Acute) Hypertension (Acute) Anemia Degenerative disc disease ESRD (end stage renal disease) on dialysis GERD (gastroesophageal reflux disease) History of alcohol dependence History of squamous cell carcinoma - Surgical History Surgical History: Surgical History (Last Reviewed 09/17/18 @ 09:10 by JENNIE Dang) H/O hernia repair - Family History Family History: Family History (Last Reviewed 09/17/18 @ 09:10 by JENNIE Dang) Other Family history of cancer - Social History I have reviewed the patient's Social History: Yes - Tobacco History Second Hand Smoke Exposure: No Tobacco Use In Past 30 Days: No Smoking Status: Former smoker Tobacco Type: Cigarettes Packs Per Day: 2 Cigarettes Per Day: 40 Years Smoked: 40 years: 80 - Alcohol History How Often Do You Have a Drink Containing Alcohol: Never - Substance Use History Substance History: No History of Abuse - Travel History Recent Travel in the [place] Within the Last 8 Weeks: No Recent Travel Out of the Country Within the Last 8 Weeks: No - Immunization History Tetanus Immunization: <5 Years Hx Influenza Vaccine This Season: Yes <Constantino Aviles - Last Filed: 09/17/18 09:04> - Medical History Medical History: Medical History (Last Reviewed 09/17/18 @ 09:10 by JENNIE Dang) BPH loc w urin obs/LUTS (Acute) COPD (chronic obstructive pulmonary disease) (Acute) Hypertension (Acute) Anemia Degenerative disc disease ESRD (end stage renal disease) on dialysis GERD (gastroesophageal reflux disease) History of alcohol dependence History of squamous cell carcinoma - Surgical History Surgical History: Surgical History (Last Reviewed 09/17/18 @ 09:10 by JENNIE Dang) H/O hernia repair - Family History Family History: Family History (Last Reviewed 09/17/18 @ 09:10 by JENNIE Dang) Other Family history of cancer <Andrew Osuna - Last Filed: 09/18/18 11:11> Medications and Allergies Active Medications: Active Medications Acetaminophen/Butalbital/Caffeine (Fioricet 50-325-40) 1 tab PO Q4H PRN PRN Reason: HEADACHE Hydrocodone Bitart/Acetaminophen ([place] 5/325) 1 tab PO Q4H PRN PRN Reason: PAIN 1-10 Albuterol (Ventolin Hfa Inh) 2 puff INH Q4H PRN PRN Reason: SHORTNESS OF BREATH Budesonide/Formoterol Fumarate (Symbicort 160/4.5 Mcg Inh) 2 puff INH BID [facility] Doxepin HCl (Sinequan) 25 mg PO HS [facility] Heparin Sodium (Porcine) (Heparin Inj) 5,000 units SQ Q12HR [facility] Losartan Potassium (Cozaar) 50 mg PO DAILY [facility] Non-Formulary Medication (Brimonidine [Alphagan P]) 1 drp EACH EYE BID [facility] Prednisone (Deltasone) 10 mg PO DAILY [facility] Pregabalin (Lyrica) 25 mg PO TID [facility] Sodium Chloride (Ns Flush) 2 ml IV.FLUSH PRN PRN PRN Reason: FLUSH AFTER USING IV ACCESS Tamsulosin HCl (Flomax) 0.8 mg PO HS [facility] <Constantino Aviles - Last Filed: 09/17/18 09:04> Active Medications: Active Medications Acetaminophen (Tylenol) 650 mg PO UNSCH X1 PRN PRN Reason: SEE LABEL COMMENTS Acetaminophen/Butalbital/Caffeine (Fioricet 50-325-40) 1 tab PO Q4H PRN PRN Reason: [place] Hydrocodone Bitart/Acetaminophen ([place] 5/325) 1 tab PO Q4H PRN PRN Reason: PAIN 1-10 Albuterol (Ventolin Hfa Inh) 2 puff INH Q4H PRN PRN Reason: SHORTNESS OF BREATH Budesonide/Formoterol Fumarate (Symbicort 160/4.5 Mcg Inh) 2 puff INH BID [facility] Last Admin: 09/18/18 08:33 Dose: 2 puff Clonidine HCl (Catapres) 0.1 mg PO UNSCH X1 PRN PRN Reason: SEE LABEL COMMENTS Diphenhydramine HCl (Benadryl) 25 mg PO UNSCH PRN PRN Reason: SEE LABEL COMMENTS Doxepin HCl (Sinequan) [address] [facility] Last Admin: 09/17/18 20:10 Dose: 25 mg Epoetin González (Epogen Inj) 10,000 unit IV.PUSH UNSCH PRN PRN Reason: SEE LABEL COMMENTS Last Admin: 09/17/18 17:36 Dose: 10,000 unit Gelatin (Gelfoam 12 Mm/7 Mm Topical) 1 foam TOPICAL UNSCH PRN PRN Reason: help stop bleeding from site Gentamicin Sulfate (Gentamicin Inj) 20 mg OTHER WITH DIALYSIS PRN PRN Reason: Dwell Gentamycin Lock Last Admin: 09/17/18 17:37 Dose: 20 mg Heparin Sodium (Porcine) (Heparin Inj) 5,000 units SQ Q12HR [facility] Last Admin: 09/18/18 08:33 Dose: 5,000 units Heparin Sodium (Porcine) (Heparin Inj) 8,000 units OTHER WITH DIALYSIS PRN PRN Reason: for machine prime Heparin Sodium (Porcine) (Heparin Inj) 0 units OTHER WITH DIALYSIS PRN PRN Reason: Dwell Heparin to Fill Catheter Last Admin: 09/17/18 17:38 Dose: 1,000 units Albumin Human (Flexbumin 25% Inj) 100 mls @ 60 mls/hr IV.SIG WITH DIALYSIS PRN PRN Reason: hypotension / volume replace Sodium Chloride (Ns Inj) 1,000 mls @ 200 mls/hr OTHER .Q5H PRN PRN Reason: for dialyzer flush PRN Sodium Chloride (Ns Inj) 1,000 mls @ 0 mls/hr IV.CONT .Q0M PRN PRN Reason: hypotension / volume replace Sodium Chloride (Ns Inj) 1,000 mls @ 0 mls/hr OTHER .Q0M PRN PRN Reason: for prime and rinse back Losartan Potassium (Cozaar) 50 mg PO DAILY [facility] Last Admin: 09/18/18 08:33 Dose: 50 mg Mannitol (Mannitol Inj) 12.5 gm IV.PUSH UNSCH PRN PRN Reason: hypotension / volume replace Nitroglycerin (Nitrostat Sl) 0.4 mg SL Q5M PRN PRN Reason: CHEST PAIN Ondansetron HCl (Zofran Inj) 4 mg IV.PUSH UNSCH X1 PRN PRN Reason: WITH DIALYSIS Pt Own Med: Alphagan P 0.1% 1 Drop Each Eye Bid 1 each EACH EYE BID [facility] Prednisone (Deltasone) 10 mg PO DAILY [facility] Last Admin: 09/18/18 08:32 Dose: 10 mg Pregabalin (Lyrica) 25 mg PO TID [facility] Last Admin: 09/18/18 08:33 Dose: 25 mg Sodium Chloride (Ns Flush) 2 ml IV.FLUSH PRN PRN PRN Reason: FLUSH AFTER USING IV ACCESS Sodium Chloride (Ns Flush) 5 ml IV.FLUSH UNSCH PRN PRN Reason: flush each lumen during HD Tamsulosin HCl (Flomax) 0.8 mg PO HS [facility] Last Admin: 09/17/18 20:09 Dose: 0.8 mg <Andrew Osuna A - Last Filed: 09/18/18 11:11> Allergies Allergy/AdvReac Type Severity Reaction Status Date / Time No Known Allergies Allergy Verified 09/16/18 17:22 Home Medications Medication Instructions Recorded Confirmed Type albuterol sulfate [Ventolin HFA] 2 puff INHALATION Q4H PRN 09/16/18 09/16/18 History brimonidine [Alphagan P] 1 drp EACH EYE BID 09/16/18 09/16/18 History [id number] 1 cap PO Q4H PRN 09/16/18 09/16/18 History [Fioricet] doxepin 25 mg PO HS 09/16/18 09/16/18 History fluticasone-salmeterol [Advair 1 puff INHALATION BID 09/16/18 09/16/18 History Diskus] gabapentin 100 mg PO BID 09/16/18 09/16/18 History latanoprost [Xalatan] 1 drp EACH EYE QPM 09/16/18 09/16/18 History losartan 50 mg PO DAILY 09/16/18 09/16/18 History prednisone 10 mg PO DAILY 09/16/18 09/16/18 History pregabalin [Lyrica] 25 mg PO TID 09/16/18 09/16/18 History tamsulosin 0.8 mg PO HS 09/16/18 09/16/18 History Exam Vital signs: Vital Signs 09/16/18 17:15 09/16/18 21:03 09/16/18 21:05 Temperature 98.3 F 97.9 F Pulse Rate 94 H 80 76 Respiratory Rate 24 18 Blood Pressure 114/64 135/73 Pulse Oximetry 98 100 09/16/18 23:38 09/17/18 00:09 09/17/18 04:00 Temperature 98.3 F 97.6 F 97.2 F L Pulse Rate 82 81 68 Respiratory Rate 16 16 17 Blood Pressure 119/69 129/70 110/51 L Pulse Oximetry 100 97 96 09/17/18 08:00 Temperature 97.4 F L Pulse Rate 70 Respiratory Rate 17 Blood Pressure 119/65 Pulse Oximetry 100 Intake & Output 09/16/18 09/17/18 09/17/18 18:59 06:59 18:59 Output Total 800 / 800 Balance -800 / -800 Weight 51.71 kg 45.8 kg Output: Urine 800 / 800 Other: Date of Last Bowel Movement 09/16/18 Weight On Admission 47.5 kg Narrative: General: Well-developed and well-nourished. Resting comfortably in no acute distress Head: Normocephalic and atraumatic Ears: Hearing is intact bilaterally Eyes: Extraocular motion is intact. Pupils are equal round and reactive to light. Neck: No evidence of lymphadenopathy Cranial nerve: II-XII grossly intact Lungs: No use of accessory muscles or breathing and no audible wheezes at bedside Heart: No grade 4 murmur present at bedside Abdomen: Soft and nontender. Musculoskeletal: RLE: Moderate swelling in the knee. Nontender with palpation of the knee. He has passive motion from 0-90 degrees with minimal discomfort. No fluctuance noted. Full sensation distally. LLE: Full motion of the hip, knee, ankle and toes with no discomfort with full sensation distally <Constantino Aviles - Last Filed: 09/17/18 09:04> Vital signs: Vital Signs 09/17/18 12:00 09/17/18 12:34 09/17/18 20:00 Temperature 97.8 F 97.8 F Pulse Rate 84 79 Respiratory Rate 17 20 Blood Pressure 89/50 L 103/55 L Pulse Oximetry 100 100 96 09/18/18 00:00 09/18/18 08:00 Temperature 97.8 F 98.1 F Pulse Rate 99 H 72 Respiratory Rate 20 20 Blood Pressure 115/65 155/64 H Pulse Oximetry 96 99 Intake & Output 09/17/18 09/18/18 09/18/18 18:59 06:59 18:59 Intake Total 120 / 120 Output Total 0 / 0 200 / 200 Balance 0 / 0 -80 / -80 Weight 45.3 kg Intake: Oral 120 / 120 Output: Urine 200 / 200 Hemodialysis Amount 0 / 0 Other: Date of Last Bowel Movement 09/16/18 <Andrew Osuna - Last Filed: 09/18/18 11:11> Results - Labs Result Diagrams: 09/16/18 17:45 09/16/18 17:45 Labs: Laboratory Results - last 24 hr 09/16/18 09/16/18 09/16/18 17:45 17:45 17:45 WBC 6.4 RBC 3.01 L Hgb 9.0 L Hct 28.8 L MCV 95.7 MCH 30.0 MCHC 31.4 L RDW 19.1 H Plt Count 250 MPV 8.0 Prelim Diff (Auto) Slide review pending Neut % (Auto) 92.0 H Lymph % (Auto) 3.1 L Bertie % (Auto) 4.3 Eos % (Auto) 0.2 Baso % (Auto) 0.4 Neut # (Auto) 5.9 Lymph # (Auto) 0.2 L Bertie # (Auto) 0.3 Eos # (Auto) 0.0 Baso # (Auto) 0.0 WBC Differential . Differential Comment Auto diff final PT 10.3 INR 1.0 APTT 24.3 Sodium 138 Potassium 4.8 Chloride 105 Carbon Dioxide 24.0 Anion Gap 9 BUN 78 H Creatinine 3.16 H Estimated GFR 23 L Random Glucose 120 H Calcium 8.6 Magnesium 1.6 Total Bilirubin 0.2 AST 72 H ALT 56 Alkaline Phosphatase 90 Total Protein 7.8 Albumin 2.5 L Lipase 139 - Diagnostic results Imaging: Impressions Chest X-Ray 09/16/18 17:36 CONCLUSION: Emphysema and scarring without perceptible acute infiltrate. Knee X-Ray 09/16/18 17:36 CONCLUSION: 1. No acute fracture or subluxation of the right knee. 2. Nonspecific joint effusion. 3. [id number]-ldgntrmr tricompartment osteoarthritis. Chondrocalcinosis of the meniscal cartilages. 4. 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 5. Atherosclerotic plaque of the popliteal artery. Knee x-ray: report reviewed, image reviewed <Constantino Aviles - Last Filed: 09/17/18 09:04> - Labs Result Diagrams: 09/16/18 17:45 09/16/18 17:45 Labs: Laboratory Results - last 24 hr 09/17/18 15:20 Hepatitis A IgM Ab Nonreactive Hep Bs Antigen Nonreactive Hep B Core IgM Ab Nonreactive Hep C IgG Ab Nonreactive <Andrew Osuna - Last Filed: 09/18/18 11:11> Assessment and Plan - Assessment and Plan 1) Right Knee Osteoarthritis -Treatment options were discussed with the patient. It appears he is having exacerbation of the osteoarthritis of his right knee. I think this is exacerbated by his most recent fall. I do not see any significant evidence of effusion or any need for any further treatment. Given his proper movement of the knee, I think this and that should resolve with anti-inflammatories and time. I would recommend a follow-up on an outpatient basis for his right knee. However, given his medical history and his current dialysis status, he is a poor surgical candidate for any type of knee arthroplasty. He can follow-up on an outpatient basis for elective steroid injections of his knee if he wishes. Otherwise, he may fully weight-bear with no restrictions and may follow-up on a as needed basis. He is orthopedically cleared for discharge. The above patient was reviewed and discussed with Dr. Osuna and he agrees. <Constantino Aviles - Last Filed: 09/17/18 09:04> - Assessment and Plan History, past medical history, social history, review of systems, physical exam , radiographs, assessment, and plan were reviewed. Plan of care was discussed and established. Plan on nonoperative treatment. Patient has chronic osteoarthritis of his knee. A mid-level provider in my office (nurse practitioner or physician patient assistant) may see this patient on follow-up visits and continue to implement the objectives of this plan including: Starting or adjusting medications, injections, cast application, orthotics, brace application, physical therapy, radiological studies (including x-ray, MRI, CT, ultrasound, bone scan), vascular studies, neurologic studies, specialist consultation, and proceeding with surgical management, as appropriate. <Anrdew Osuna - Last Filed: 09/18/18 11:11>
[2018-09-17] MEDS: predniSONE 10 MG Tablet PO SCH (10:27)
[2018-09-17] MEDS: Heparin - SQ 10,000 UNITS/ML Vial SQ SCH ×2 (10:27→20:10)
[2018-09-17] MEDS: Budesonide-Formoterol 160/4.5 MCG 6 GM Inhaler INH SCH ×2 (10:28→20:10)
[2018-09-17] MEDS: Pregabalin 25 MG Capsule PO SCH ×4 (10:30→18:59)
[2018-09-17] MEDS ORDERED: Heparin 10,000 UNITS/10 ML Vial (for IV use) OTHER PRN (11:03)
[2018-09-17] MEDS ORDERED: Albumin Human 25% Inj 100 ML IV.SIG PRN (11:03)
[2018-09-17] MEDS ORDERED: Sod Chloride 0.9% Inj 1,000 ML IV.CONT PRN (11:03)
[2018-09-17] MEDS ORDERED: Gelatin 12 MM/7 MM Topical Foam TOPICAL PRN (11:03)
[2018-09-17] MEDS ORDERED: Acetaminophen 325 MG Tablet PO PRN (11:03)
[2018-09-17] MEDS ORDERED: Sod Chloride 0.9% Inj 1,000 ML OTHER PRN ×2 (11:03)
--- NOTE | 2018-09-17 15:29 | P.CONNP ---
<MariamlauraMarcy yoon - Last Filed: 09/17/18 15:19> History of Present Illness Service: Nephrology Consult date: 09/17/18 Requesting Physician: Ariane Bell Reason for Consult: End stage renal disease on HD Primary Care Provider: Nishant Johnson DO History of Present Illness: Patient is an 83-year-old male who presents the emergency room from home for evaluation of right knee pain as well as reports that he needs dialysis. He has end-stage renal disease and he is currently on hemodialysis every Tuesdays, and Saturdays at [facility] dialysis.Patient reports that he has been falling and recently fell and hurt his right knee. Recently discharged from SNF , lives alone. Nephrology is consulted management of hemodialysis. Last hemodialysis was on 09 of September. He missed the last 3 scheduled hemodialysis. He denies any shortness of breath, chest pain, nausea, vomiting , or diarrhea. PMFSH - History History Provided By: Patient - Medical History Medical History: Medical History (Last Reviewed 09/17/18 @ 09:10 by JENNIE Dang) BPH loc w urin obs/LUTS (Acute) COPD (chronic obstructive pulmonary disease) (Acute) Hypertension (Acute) Anemia Degenerative disc disease ESRD (end stage renal disease) on dialysis GERD (gastroesophageal reflux disease) History of alcohol dependence History of squamous cell carcinoma - Surgical History Surgical History: Surgical History (Last Reviewed 09/17/18 @ 09:10 by JENNIE Dang) H/O hernia repair - Family History Family History: Family History (Last Reviewed 09/17/18 @ 09:10 by JENNIE Dang) Other Family history of cancer - Tobacco History Second Hand Smoke Exposure: No Tobacco Use In Past 30 Days: No Smoking Status: Former smoker Tobacco Type: Cigarettes Packs Per Day: 2 Cigarettes Per Day: 40 Years Smoked: 40 years: 80 - Alcohol History How Often Do You Have a Drink Containing Alcohol: Never - Substance Use History Substance History: No History of Abuse - Travel History Recent Travel in the [place] Within the Last 8 Weeks: No Recent Travel Out of the Country Within the Last 8 Weeks: No - Immunization History Tetanus Immunization: <5 Years Hx Influenza Vaccine This Season: Yes Medications and Allergies Allergies Allergy/AdvReac Type Severity Reaction Status Date / Time No Known Allergies Allergy Verified 09/16/18 17:22 Home Medications Medication Instructions Recorded Confirmed Type albuterol sulfate [Ventolin HFA] 2 puff INHALATION Q4H PRN 09/16/18 09/16/18 History brimonidine [Alphagan P] 1 drp EACH EYE BID 09/16/18 09/16/18 History [id number]-jtyj 1 cap PO Q4H PRN 09/16/18 09/16/18 History [Fioricet] doxepin 25 mg PO HS 09/16/18 09/16/18 History fluticasone-salmeterol [Advair 1 puff INHALATION BID 09/16/18 09/16/18 History Diskus] gabapentin 100 mg PO BID 09/16/18 09/16/18 History latanoprost [Xalatan] 1 drp EACH EYE QPM 09/16/18 09/16/18 History losartan 50 mg PO DAILY 09/16/18 09/16/18 History prednisone 10 mg PO DAILY 09/16/18 09/16/18 History pregabalin [Lyrica] 25 mg PO TID 09/16/18 09/16/18 History tamsulosin 0.8 mg PO HS 09/16/18 09/16/18 History Active Medications: Active Medications Acetaminophen (Tylenol) 650 mg PO UNSCH X1 PRN PRN Reason: SEE LABEL COMMENTS Acetaminophen/Butalbital/Caffeine (Fioricet 50-325-40) 1 tab PO Q4H PRN PRN Reason: HEADACHE Hydrocodone Bitart/Acetaminophen ([place] 5/325) 1 tab PO Q4H PRN PRN Reason: PAIN 1-10 Albuterol (Ventolin Hfa Inh) 2 puff INH Q4H PRN PRN Reason: SHORTNESS OF BREATH Budesonide/Formoterol Fumarate (Symbicort 160/4.5 Mcg Inh) 2 puff INH BID [facility] Last Admin: 09/17/18 10:28 Dose: Not Given Clonidine HCl (Catapres) 0.1 mg PO UNSCH X1 PRN PRN Reason: SEE LABEL COMMENTS Diphenhydramine HCl (Benadryl) 25 mg PO UNSCH PRN PRN Reason: SEE LABEL COMMENTS Doxepin HCl (Sinequan) 25 mg PO HS [facility] Epoetin González (Epogen Inj) 10,000 unit IV.PUSH UNSCH PRN PRN Reason: SEE LABEL COMMENTS Gelatin (Gelfoam 12 Mm/7 Mm Topical) 1 foam TOPICAL UNSCH PRN PRN Reason: help stop bleeding from site Gentamicin Sulfate (Gentamicin Inj) 20 mg OTHER WITH DIALYSIS PRN PRN Reason: Dwell Gentamycin Lock Heparin Sodium (Porcine) (Heparin Inj) 5,000 units SQ Q12HR [facility] Last Admin: 09/17/18 10:27 Dose: 5,000 units Heparin Sodium (Porcine) (Heparin Inj) 8,000 units OTHER WITH DIALYSIS PRN PRN Reason: for machine prime Heparin Sodium (Porcine) (Heparin Inj) 0 units OTHER WITH DIALYSIS PRN PRN Reason: Dwell Heparin to Fill Catheter Albumin Human (Flexbumin 25% Inj) 100 mls @ 60 mls/hr IV.SIG WITH DIALYSIS PRN PRN Reason: hypotension / volume replace Sodium Chloride (Ns Inj) 1,000 mls @ 200 mls/hr OTHER .Q5H PRN PRN Reason: for dialyzer flush PRN Sodium Chloride (Ns Inj) 1,000 mls @ 0 mls/hr IV.CONT .Q0M PRN PRN Reason: hypotension / volume replace Sodium Chloride (Ns Inj) 1,000 mls @ 0 mls/hr OTHER .Q0M PRN PRN Reason: for prime and rinse back Losartan Potassium (Cozaar) 50 mg PO DAILY [facility] Last Admin: 09/17/18 10:27 Dose: 50 mg Mannitol (Mannitol Inj) 12.5 gm IV.PUSH UNSCH PRN PRN Reason: hypotension / volume replace Nitroglycerin (Nitrostat Sl) 0.4 mg SL Q5M PRN PRN Reason: CHEST PAIN Ondansetron HCl (Zofran Inj) 4 mg IV.PUSH UNSCH X1 PRN PRN Reason: WITH DIALYSIS Pt Own Med: Alphagan P 0.1% 1 Drop Each Eye Bid 1 each EACH EYE BID [facility] Prednisone (Deltasone) 10 mg PO DAILY [facility] Last Admin: 09/17/18 10:27 Dose: 10 mg Pregabalin (Lyrica) 25 mg PO TID [facility] Last Admin: 09/17/18 10:30 Dose: 25 mg Sodium Chloride (Ns Flush) 2 ml IV.FLUSH PRN PRN PRN Reason: FLUSH AFTER USING IV ACCESS Sodium Chloride (Ns Flush) 5 ml IV.FLUSH UNSCH PRN PRN Reason: flush each lumen during HD Tamsulosin HCl (Flomax) 0.8 mg PO HS [facility] Exam Vital signs: Vital Signs 09/16/18 17:15 09/16/18 21:03 09/16/18 21:05 Temperature 98.3 F 97.9 F Pulse Rate 94 H 80 76 Respiratory Rate 24 18 Blood Pressure 114/64 135/73 Pulse Oximetry 98 100 09/16/18 23:38 09/17/18 00:09 09/17/18 04:00 Temperature 98.3 F 97.6 F 97.2 F L Pulse Rate 82 81 68 Respiratory Rate 16 16 17 Blood Pressure 119/69 129/70 110/51 L Pulse Oximetry 100 97 96 09/17/18 08:00 09/17/18 12:00 09/17/18 12:34 Temperature 97.4 F L 97.8 F Pulse Rate 70 84 Respiratory Rate 17 17 Blood Pressure 119/65 89/50 L Pulse Oximetry 100 100 100 Intake & Output 09/16/18 09/17/18 09/17/18 18:59 06:59 18:59 Output Total 800 / 800 Balance -800 / -800 Weight 51.71 kg 45.8 kg Output: Urine 800 / 800 Other: Date of Last Bowel Movement 09/16/18 Weight On Admission 47.5 kg Narrative: GENERAL: Alert and oriented. SKIN: Warm and dry. NECK: Supple, trachea midline. No JVD. CARDIOVASCULAR: Regular rate and rhythm without murmurs, gallops, or rubs. Permacath present right IJ RESPIRATORY: Breath sounds equal bilaterally. No accessory muscle use. GASTROINTESTINAL: Abdomen soft, non-tender, nondistended. MUSCULOSKELETAL: No cyanosis, or edema. BACK: Nontender without obvious deformity. No CVA tenderness. Results - Lab Results 09/16/18 17:45 09/16/18 17:45 Most recent lab results Calcium 8.6 mg/dL (8.5-10.1) 09/16/18 17:45 Magnesium 1.6 mg/dL (1.5-2.5) 09/16/18 17:45 Assessment and Plan - Assessment (1) End-stage renal disease on hemodialysis Code(s): N18.6 - End stage renal disease; Z99.2 - Dependence on renal dialysis Status: Acute Plan: Hemodialysis on //Saturday Will proceed with HD today since patient has missed last three HD treatments Epogen with dialysis Orders placed and dialysis contacted Will repeat dialysis tomorrow to place on regular scheduled days. <Juan Green - Last Filed: 09/19/18 16:46> History of Present Illness Primary Care Provider: Nishant Johnson DO [facility] - Medical History Medical History: Medical History (Last Reviewed 09/17/18 @ 09:10 by JENNIE Dang) BPH loc w urin obs/LUTS (Acute) COPD (chronic obstructive pulmonary disease) (Acute) Hypertension (Acute) Anemia Degenerative disc disease ESRD (end stage renal disease) on dialysis GERD (gastroesophageal reflux disease) History of alcohol dependence History of squamous cell carcinoma - Surgical History Surgical History: Surgical History (Last Reviewed 09/17/18 @ 09:10 by JENNIE Dang) H/O hernia repair - Family History Family History: Family History (Last Reviewed 09/17/18 @ 09:10 by JENNIE Dang) Other Family history of cancer Exam Vital signs: Intake & Output 09/18/18 09/19/18 09/19/18 18:59 06:59 18:59 Output Total 1000 / 1000 Balance -1000 / -1000 Output: Hemodialysis Amount 1000 / 1000 Other: Date of Last Bowel Movement 09/16/18 Results - Lab Results 09/16/18 17:45 09/16/18 17:45 Most recent lab results Calcium 8.6 mg/dL (8.5-10.1) 09/16/18 17:45 Magnesium 1.6 mg/dL (1.5-2.5) 09/16/18 17:45 Assessment and Plan - Assessment (1) End-stage renal disease on hemodialysis Code(s): N18.6 - End stage renal disease; Z99.2 - Dependence on renal dialysis Status: Acute Plan: Patient seen and examine during HD, agree with above. Patient now on HD, remove fluid as tolerated. Need placement. Possible discharge if placement arranged.
[2018-09-17 16:22] LABS: Hepatitits B Surface Antigen Nonreactive (Nonreactive)
[2018-09-17 16:47] LABS: Hepatitis A IgM Antibody Nonreactive (Nonreactive)
[2018-09-17] MEDS: Heparin 10,000 UNITS/10 ML Vial (for IV use) OTHER PRN (17:38)
--- NOTE | 2018-09-17 19:38 | ECG ---
Date Performed: 09/16/2018 Time Performed: 18:22:33 PTAGE: 83 years EKG: Sinus rhythm NORMAL ECG PREVIOUS TRACING : 07/21/2018 11.47 Since the previous tracing, no significant change noted DOCTOR: Aries Estrella Interpretating Date/Time 09/17/2018 19:37:16
[2018-09-17] MEDS ORDERED: ALPHAGAN P 0.1% EACH EYE SCH (21:00)
[2018-09-17] MEDS ORDERED: [UNRECOGNIZED DRUG - OTHER] EACH EYE SCH (21:00)
[2018-09-18] MEDS: predniSONE 10 MG Tablet PO SCH (08:32)
[2018-09-18] MEDS: Pregabalin 25 MG Capsule PO SCH ×3 (08:33→18:31)
[2018-09-18] MEDS: Heparin - SQ 10,000 UNITS/ML Vial SQ SCH (08:33)
[2018-09-18] MEDS: Budesonide-Formoterol 160/4.5 MCG 6 GM Inhaler INH SCH (08:33)
--- NOTE | 2018-09-18 10:34 | P.DS ---
Date of admission: 09/16/18 20:21 Primary care physician: Nishant Johnson DO Brief History from admission: 83-year-old male well known to our services, recently DC from [facility] to home with nephew, presents the emergency room for evaluation of right knee pain as well as reports that he needs dialysis. He has end-stage renal disease and he is currently on hemodialysis every Tuesdays, and Saturdays at [facility]. He is known to not be compliant with his treatment's. He is a patient of Dr. Granados and Dr. Green. 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 He states the bus never cam for him with dialysis, and then continues to say that the time he is schediuled for is inconvenient for him. He does have effusion to R knee, ortho has been consulted , will get him scheduled for dialysis. DS: Diagnosis - Discharge Diagnosis (1) Effusion of left knee Status: Acute (2) ESRD (end stage renal disease) Status: Acute (3) Acute exacerbation of COPD with asthma Status: Resolved (4) Hypertension Status: Resolved (5) Neuropathy Status: Acute (6) Gait instability Status: Acute DS: Summary Hospital Course: 83-year-old male presents the emergency room for evaluation of right knee pain as well as reports that he needs dialysis. He has end-stage renal disease and he is currently on hemodialysis every Tuesdays, and Saturdays. He was seen by renal, dialysis given on 09/17 and will be given today prior to DC. He was seen by ortho, for R knee pain, no intervention required, he will follow up outpatient. He is being dc to Rehab and likely placed for LTC - Time Spent with Patient Total time spent providing and/or coordinating discharge services: 25 Less than 30 minutes - Quality: AMI Clinical Trial Participant: No - Quality: Stroke Symptom Onset Unknown: No - Quality: VTE Is this test being ordered to rule out VTE?: No Deep Vein Thrombosis/Pulmonary Embolism Present on Admission: No Exam Vital signs: Vital Signs 09/17/18 12:00 09/17/18 12:34 09/17/18 20:00 Temperature 97.8 F 97.8 F Pulse Rate 84 79 Respiratory Rate 17 20 Blood Pressure 89/50 L 103/55 L Pulse Oximetry 100 100 96 09/18/18 00:00 09/18/18 08:00 Temperature 97.8 F 98.1 F Pulse Rate 99 H 72 Respiratory Rate 20 20 Blood Pressure 115/65 155/64 H Pulse Oximetry 96 Intake & Output 09/17/18 09/18/18 09/18/18 18:59 06:59 18:59 Intake Total 120 / 120 Output Total 0 / 0 200 / 200 Balance 0 / 0 -80 / -80 Weight 45.3 kg Intake: Oral 120 / 120 Output: Urine 200 / 200 Hemodialysis Amount 0 / 0 Other: Date of Last Bowel Movement 09/16/18 - Constitutional no acute distress - Routine HEENT Exam ENT: Present: mucous membranes moist - Routine Neck Exam Present: supple - Routine Respiratory Exam Present: wheezes, diminished air movement - Routine Cardiovascular Exam Present: S1, S2 - Routine Abdominal Exam Present: soft, normoactive bowel sounds - Routine Extremities Exam Present: pulses intact - Routine Skin Exam Present: dry, warm - Routine Neurological Exam Present: alert, oriented X3 Results Procedures completed during hospitalization: na Labs on day of discharge: Labs from last 24 hours 09/17/18 15:20 Hepatitis A IgM Ab Nonreactive Hep Bs Antigen Nonreactive Hep B Core IgM Ab Nonreactive Hep C IgG Ab Nonreactive - Impressions ITS Impressions Chest X-Ray 09/16/18 17:36 CONCLUSION: Emphysema and scarring without perceptible acute infiltrate. Knee X-Ray 09/16/18 17:36 CONCLUSION: 1. No acute fracture or subluxation of the right knee. 2. Nonspecific joint effusion. 3. 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 4. 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 5. Atherosclerotic plaque of the popliteal artery. Discharge Plan - Discharge Disposition Patient Disposition: Discharge to SNF - Discharge Condition Condition: Good - Discharge Order Discharge Orders: Discharge Order (Routine); Ordered 09/18/18 Ordered By: Jocy Anguiano - Discharge Details Anticipated Discharge Date: 09/18/18 Discharge Comment: DC to snf once dialysis completed today and arrangement's made - Physicians Team Primary Care Provider: Nishant Johnson Attending Provider: Nishant Johnson Other Providers: Kimberli Oshea MD ; Fernando Melgoza MD ; Andrew Che MD ; [facility]
[2018-09-18 12:17] VITALS: BP 88/52; PULSE 98; RESP 16; TEMP 98.2; O2SAT 100
--- NOTE | 2018-09-18 14:50 | P.PNNP ---
Subjective Interval history: Seen in AM. Sitting on side of bed eating breakfast. Hemodialysis planned for today. <Marcy Gardner - Last Filed: 09/18/18 14:46> Physical Exam Vital signs: Vital Signs 09/17/18 20:00 09/18/18 00:00 09/18/18 08:00 Temperature 97.8 F 97.8 F 98.1 F Pulse Rate 79 99 H 72 Respiratory Rate 20 20 20 Blood Pressure 103/55 L 115/65 155/64 H Pulse Oximetry 96 96 99 09/18/18 10:00 09/18/18 12:00 Temperature 98.2 F Pulse Rate 98 H Respiratory Rate 16 Blood Pressure 88/52 L Pulse Oximetry 98 100 Intake & Output 09/17/18 09/18/18 09/18/18 18:59 06:59 18:59 Intake Total 120 / 120 Output Total 0 / 0 200 / 200 Balance 0 / 0 -80 / -80 Weight 45.3 kg Intake: Oral 120 / 120 Output: Urine 200 / 200 Hemodialysis Amount 0 / 0 Other: Date of Last Bowel Movement 09/16/18 09/16/18 Narrative: GENERAL: Alert and oriented. SKIN: Warm and dry. NECK: Supple, trachea midline. No JVD. CARDIOVASCULAR: Regular rate and rhythm without murmurs, gallops, or rubs. Permacath present right IJ RESPIRATORY: Breath sounds equal bilaterally. No accessory muscle use. GASTROINTESTINAL: Abdomen soft, non-tender, nondistended. MUSCULOSKELETAL: No cyanosis, or edema. BACK: Nontender without obvious deformity. No CVA tenderness. <Marcy Gardner - Last Filed: 09/18/18 14:46> Assessment and Plan - Assessment (1) End-stage renal disease on hemodialysis Code(s): N18.6 - End stage renal disease; Z99.2 - Dependence on renal dialysis Status: Acute Plan: Hemodialysis on //Saturday Hemodialysis yesterday tolerated well No happy about current chair time, will discuss further with patient. Epogen with dialysis Hemodialysis today and plans for discharge to [facility] <Marcy Gardner - Last Filed: 09/18/18 14:46> - Assessment (1) End-stage renal disease on hemodialysis Code(s): N18.6 - End stage renal disease; Z99.2 - Dependence on renal dialysis Status: Acute Plan: Patient seen and examined, agree with above. Patient has HD done yesterday, for D/C to SNF. Continue HD as per schedule. <Juan Geren - Last Filed: 09/24/18 10:25> Progress Note: Quality - AMI Clinical Trial Participant: No <Marcy Gardner - Last Filed: 09/18/18 14:46>
[2018-09-18] MEDS: Heparin 10,000 UNITS/10 ML Vial (for IV use) OTHER PRN (17:16)
== END 2018-09-18 18:59 ==
LOC: NEPC 17:03 → NEDA 17:03 → HCIN 20:49 → N07 23:56
PROVIDERS: ADMIT Family Medicine; ATTEND Family Medicine

== ENCOUNTER 2018-10-08 18:00 | Inpatient (IN) ==
[2018-10-08 20:25] LABS: Baso % (Auto) 0.2 % (0.0-2.0); Eos % (Auto) 0.2 % (0.0-4.0); Hematocrit 30.9 % (39.0-51.0); Hemoglobin 9.7 gm/dL (13.0-17.0); Lymph # (Auto) 0.7 th/mm3 (1.0-4.8); Lymph % (Auto) 4.4 % (9.0-44.0); Mean Corpuscular HGB Conc 31.4 % (32.0-36.0); Mean Corpuscular Hemoglobin 28.4 pg (27.0-34.0); Mean Corpuscular Volume 90.6 fL (80.0-100.0); Mean Platelet Volume 7.1 fL (7.0-11.0); Mono # (Auto) 1.2 th/mm3 (0.0-0.9); Mono % (Auto) 7.8 % (0.0-8.0); Neut # (Auto) 12.9 th/mm3 (1.8-7.7); Neut % (Auto) 87.4 % (16.0-70.0); Platelet Count 231 th/mm3 (150-450); Red Blood Count 3.41 mil/mm3 (4.50-5.90); Red Cell Distribution Width 19.5 % (11.6-17.2); White Blood Count 14.8 th/mm3 (4.0-11.0)
--- NOTE | 2018-10-08 20:43 | XR ---
EXAM DATE: 10/08/2018 8:35 PM EST AGE/SEX: 83 years / Male INDICATIONS: Chest pain starting today CLINICAL DATA: This is the patient's initial encounter. Patient reports that signs and symptoms have been present for 1 day and indicates a pain score of 10/10. MEDICAL/SURGICAL HISTORY: . Chronic obstructive pulmonary disease. Hypertension. Renal disease, end stage. . Dialysis catheter COMPARISON: [facility], CHEST 1V SINGLE AP, 09/16/2018. . FINDINGS: Right chest dialysis catheter is present. A tiny metallic density fragment overlies the right upper m edial chest as previously. There is patchy infiltrate in the right lung. Left lung is clear. No signi ficant effusion. Cardiac contours are satisfactory for technique and projection. CONCLUSION: Developing right lung infiltrates. Electronically signed by: Jerrod Villeda MD 10/08/2018 8:41 PM EST
[2018-10-08 20:51] LABS: Alanine Aminotransferase 14 U/L (12-78); Albumin 2.7 g/dL (3.4-5.0); Anion Gap 9 meq/L (5-15); Aspartate Aminotransferase 18 U/L (15-37); Blood Urea Nitrogen 109 mg/dL (7-18); Calcium 8.7 mg/dL (8.5-10.1); Carbon Dioxide 22.9 meq/L (21.0-32.0); Chloride 107 meq/L (98-107); Glomerular Filtration Rate 9 mL/min (>89); Glucose,Random 80 mg/dL (74-106); Potassium 4.9 meq/L (3.5-5.1); Sodium 139 meq/L (136-145)
[2018-10-08] MEDS ORDERED: Piperacil/Tazo 2.25 GM Premix 50 ML IV.SIG ONE (20:53)
[2018-10-08 20:54] LABS: Alkaline Phosphatase 59 U/L (45-117); Total Protein 7.3 g/dL (6.4-8.2)
--- NOTE | 2018-10-08 20:58 | ED ---
HPI General Chief complaint: Respiratory Symptoms Stated complaint: medical Time Seen by Provider: 10/08/18 19:45 History of Present Illness HPI narrative: Patient is a an 83-year-old male end-stage renal disease on dialysis Saturday, who presents emergency department for evaluation of several complaints. Patient states he was being sent up here because he was shaking all over. According to nursing notes from [facility] patient had some hypotensive in the 80s and was tachycardic. Patient recently admitted to hospital for knee pain and frequent falls. Patient states he had a fall on the way here as well and still has knee pain. He states he caught himself and did not actually have a complete fall. States he just aching on hurts all over. Has a history of COPD as well. No fevers does endorse a very wet cough. He states the upper respiratory symptoms started today. Symptoms moderate, gradually worsening, associated signs symptoms in context as above. Related Data Home Medications Medication Instructions Recorded Confirmed albuterol sulfate [Ventolin HFA] 2 puff INHALATION Q4H PRN 09/16/18 10/08/18 brimonidine [Alphagan P] 1 drp EACH EYE BID 09/16/18 10/08/18 [id number] 1 cap PO Q4H PRN 09/16/18 10/08/18 [Fioricet] doxepin 25 mg PO HS 09/16/18 10/08/18 fluticasone-salmeterol [Advair 1 puff INHALATION BID 09/16/18 10/08/18 Diskus] gabapentin 100 mg PO BID 09/16/18 10/08/18 latanoprost [Xalatan] 1 drp EACH EYE QPM 09/16/18 10/08/18 losartan 50 mg PO DAILY 09/16/18 10/08/18 prednisone 10 mg PO DAILY 09/16/18 10/08/18 pregabalin [Lyrica] 25 mg PO TID 09/16/18 10/08/18 tamsulosin 0.8 mg PO HS 09/16/18 10/08/18 doxepin 25 mg PO DAILY 10/08/18 10/08/18 levofloxacin [Levaquin] 500 mg PO DAILY 10/08/18 10/08/18 Previous Rx's Medication Instructions Recorded hydrocodone-acetaminophen 1 tab PO Q4H PRN tab 09/18/18 Allergies Allergy/AdvReac Type Severity Reaction Status Date / Time No Known Allergies Allergy Verified 10/08/18 18:07 Review of Systems ROS: all other systems reviewed are negative [facility] Social History Social History Substance History: No History of Abuse Second Hand Smoke Exposure: No Smoking Status: Never smoker Tobacco Type: Cigarettes Packs Per Day: 2 Cigarettes Per Day: 40.0 Years Smoked: 40 Pack-Years: 80.00 years: 80 How Often Do You Have a Drink Containing Alcohol: Never Recent Travel in [facility] within the Last 8 Weeks: No Recent Out of Country Travel within the Last 8 Weeks: No Immunization History Tetanus Immunization: <5 Years Exam Narrative Exam Narrative: GENERAL: Well-developed cachectic male, exhibiting a wet cough, no obvious distress. SKIN: Focused skin assessment warm/dry. HEAD: Atraumatic. Normocephalic. EYES: Pupils equal and round. No scleral icterus. No injection or drainage. ENT: No nasal bleeding or discharge. Mucous membranes pink and moist. NECK: Trachea midline. No JVD. CARDIOVASCULAR: Regular rate and rhythm. No murmur appreciated. RESPIRATORY: No accessory muscle use. Patient relatively clear bilaterally, good air entry, mildly tachypneic. GASTROINTESTINAL: Abdomen soft, non-tender, nondistended. Hepatic and splenic margins not palpable. MUSCULOSKELETAL: No obvious deformities. No clubbing. No cyanosis. No edema. NEUROLOGICAL: Awake and alert. No obvious cranial nerve deficits. Motor grossly within normal limits. Normal speech. PSYCHIATRIC: Appropriate mood and affect; insight and judgment normal. Course Initial Documented Vital Signs Temperature 97.7 F 10/08/18 18:05 Pulse Rate 121 H 10/08/18 18:05 Respiratory Rate 22 10/08/18 18:05 Blood Pressure 127/59 L 10/08/18 18:05 Pulse Oximetry 97 10/08/18 18:05 Last Documented Vital Signs Temperature 98 F 10/08/18 19:41 Pulse Rate 95 H 10/08/18 20:09 Respiratory Rate 18 10/08/18 19:41 Blood Pressure 139/79 10/08/18 19:41 Pulse Oximetry 95 10/08/18 20:09 Medical Decision Making MDM Narrative Medical decision making narrative: Patient room to the emergency department, near 15,000 white count which is new from his previous admission here earlier this month. Certainly neutrophil predominant. He is a little tachycardic in the emergency department meeting Sirs criteria. Care chest x-ray does show developing infiltrates in the right lung given his cough and congestion this appears to be a hospital-acquired pneumonia with sepsis. Lactic acid blood cultures vancomycin and Zosyn have been ordered patient will be requiring admission to the hospital. Lab Data Result diagrams: 10/08/18 20:00 10/08/18 20:00 Lab Results 10/08/18 10/08/18 Range/Units 20:00 20:00 WBC 14.8 H (4.0-11.0) th/mm3 RBC 3.41 L (4.50-5.90) mil/mm3 Hgb 9.7 L (13.0-17.0) gm/dL Hct 30.9 L (39.0-51.0) % MCV 90.6 (80.0-100.0) fL MCH 28.4 (27.0-34.0) pg MCHC 31.4 L (32.0-36.0) % RDW 19.5 H (11.6-17.2) % Plt Count 231 (150-450) th/mm3 MPV 7.1 (7.0-11.0) fL Prelim Diff (Auto) Slide review pending Neut % (Auto) 87.4 H (16.0-70.0) % Lymph % (Auto) 4.4 L (9.0-44.0) % [place] % (Auto) 7.8 (0.0-8.0) % Eos % (Auto) 0.2 (0.0-4.0) % Baso % (Auto) 0.2 (0.0-2.0) % Neut # (Auto) 12.9 H (1.8-7.7) th/mm3 Lymph # (Auto) 0.7 L (1.0-4.8) th/mm3 [place] # (Auto) 1.2 H (0.0-0.9) th/mm3 Eos # (Auto) 0.0 (0.0-0.4) th/mm3 Baso # (Auto) 0.0 (0.0-0.2) th/mm3 Differential Comment . Sodium 139 (136-145) meq/L Potassium 4.9 (3.5-5.1) meq/L Chloride 107 (98-107) meq/L Carbon Dioxide 22.9 (21.0-32.0) meq/L Anion Gap 9 (5-15) meq/L BUN 109 H (7-18) mg/dL Creatinine 7.05 H (0.60-1.30) mg/dL Estimated GFR 9 L (>89) mL/min Random Glucose 80 (74-106) mg/dL Calcium 8.7 (8.5-10.1) mg/dL AST 18 (15-37) U/L ALT 14 (12-78) U/L Albumin 2.7 L (3.4-5.0) g/dL Imaging Data Radiologist's impression: Chest X-Ray 10/08/18 19:56 CONCLUSION: Developing right lung infiltrates. Discharge Plan Physicians Team ED Provider: Hubert Aldana Primary Care Provider: Nishant Johnson Rxs /Orders / Referrals /Forms Prescriptions: No Action doxepin 25 mg Capsule 25 mg PO DAILY RF: 0 levofloxacin [Levaquin] 500 mg Tablet 500 mg PO DAILY RF: 0 losartan 50 mg Tablet 50 mg PO DAILY RF: 0 latanoprost [Xalatan] 0.005 % Drops 1 drp EACH EYE QPM RF: 0 fluticasone-salmeterol [Advair Diskus] 250-50 mcg/dose Blister With Device 1 puff INHALATION BID RF: 0 prednisone 10 mg Tablet 10 mg PO DAILY RF: 0 gabapentin 100 mg Capsule 100 mg PO BID RF: 0 albuterol sulfate [Ventolin HFA] 90 mcg/actuation Hfa Aerosol Inhaler 2 puff INHALATION Q4H PRN (Reason: Shortness Of Breath) RF: 0 pregabalin [Lyrica] 25 mg Capsule 25 mg PO TID RF: 0 brimonidine [Alphagan P] 0.1 % Drops 1 drp EACH EYE BID RF: 0 [id number] [Fioricet] 50-300-40 mg Capsule 1 cap PO Q4H PRN (Reason: Headache) RF: 0 doxepin 25 mg capsule 25 mg PO HS RF: 0 tamsulosin 0.4 mg capsule 0.8 mg PO HS RF: 0 hydrocodone-acetaminophen 5-325 mg Tablet 1 tab PO Q4H PRN (Reason: PAIN 1-10) RF: 0 Status ED Status: With Doctor
[2018-10-08] MEDS ORDERED: Vancomycin Inj 1,000 MG in Sodium Chlor 0.9% Inj 250 ML IV.SIG SCH (21:00)
[2018-10-08] MEDS ORDERED: Sod Chloride 0.9% Inj 1,000 ML IV.SIG SCH (21:00)
[2018-10-08 21:12] LABS: Ovalocytes 2+; Platelet Estimate Normal (Normal); Platelet Morphology Normal (Normal); Tear Drop Cells 1+
[2018-10-08] MEDS ORDERED: Bisacodyl 10 MG Supp RECTAL PRN (23:33)
[2018-10-08] MEDS ORDERED: Acetaminophen 325 MG Tablet PO PRN (23:33)
[2018-10-09] MEDS: Butalbital/APAP/Caff 50/325/40 MG Tablet PO PRN (05:38)
[2018-10-09] MEDS ORDERED: Gelatin 12 MM/7 MM Topical Foam TOPICAL PRN (06:29)
[2018-10-09] MEDS ORDERED: Sod Chloride 0.9% Inj 1,000 ML IV.CONT PRN (06:29)
[2018-10-09] MEDS ORDERED: Albumin Human 25% Inj 100 ML IV.SIG PRN (06:29)
[2018-10-09] MEDS ORDERED: Sod Chloride 0.9% Inj 1,000 ML OTHER PRN ×2 (06:29)
[2018-10-09] MEDS ORDERED: Acetaminophen 325 MG Tablet PO PRN (06:29)
[2018-10-09] MEDS ORDERED: Heparin 10,000 UNITS/10 ML Vial (for IV use) OTHER PRN (06:29)
[2018-10-09] MEDS: Senna/Docusate Sodium 8.6/50 MG Tablet PO SCH ×2 (08:36→20:41)
[2018-10-09] MEDS: Pregabalin 25 MG Capsule PO SCH ×3 (08:36→20:41)
[2018-10-09] MEDS: Piperacil/Tazo 2.25 GM Premix 50 ML IV.SIG SCH ×3 (08:36→23:11)
[2018-10-09] MEDS: predniSONE 10 MG Tablet PO SCH (08:36)
[2018-10-09] MEDS: Gabapentin 100 MG Capsule PO SCH ×2 (08:36→20:41)
[2018-10-09] MEDS ORDERED: levoFLOXacin 500 MG Tablet PO SCH (09:00)
--- NOTE | 2018-10-09 09:49 | P.PNNP ---
Physical Exam Vital signs: Vital Signs 10/08/18 18:05 10/08/18 19:41 10/08/18 20:09 Temperature 97.7 F 98 F Pulse Rate 121 H 110 H 95 H Respiratory Rate 22 18 Blood Pressure 127/59 L 139/79 Pulse Oximetry 97 95 10/08/18 22:54 10/08/18 22:55 10/09/18 00:06 Temperature Pulse Rate 90 116 H Respiratory Rate 18 24 Blood Pressure 132/96 H Pulse Oximetry 95 95 93 L 10/09/18 01:19 10/09/18 04:00 10/09/18 08:00 Temperature 97.2 F L 97.8 F 97.9 F Pulse Rate 105 H 88 104 H Respiratory Rate 16 16 Blood Pressure 132/71 112/64 120/66 Pulse Oximetry 94 L 97 96 10/09/18 08:08 Temperature Pulse Rate 90 Respiratory Rate Blood Pressure Pulse Oximetry 92 L Intake & Output 10/08/18 10/09/18 10/09/18 18:59 06:59 18:59 Intake Total 1420 / 1420 Output Total 50 / 50 Balance 1370 / 1370 Weight 51.71 kg 57.3 kg Intake: IV 1300 / 1300 Zosyn 2.25 GM Premix 50 ML @ 50 / 50 100 mls/hr IV.SIG ONCE ONE Rx#: [id number] NS Inj 1,000 ML @ 1000 mls/hr 1000 / 1000 IV.SIG BOLUS LALITO Rx#:[id number] Vancomycin Inj 1,000 MG In NS 250 / 250 Inj 250 ML @ 250 mls/hr IV.SIG [employer]ID[employer] DRAFTER LALITO Rx#:[id number] Oral 120 / 120 Output: Urine 50 / 50 Other: Date of Last Bowel Movement 10/08/18 # Bowel Movements 0
--- NOTE | 2018-10-09 11:05 | P.HPFP ---
History of Present Illness Primary Care Physician: Nishant Johnson DO History of Present Illness: 83-year-old male end-stage renal disease on dialysis Saturday , who presents emergency department for evaluation of several complaints. CXR in facility done yesterday showing PNA, he has also refused last dialysis treatment. He was hypotensive, and had elevated HR with shaking. He has had several admits over past few months, mostly relating to Missing dialysis treatments. - Diagnosis (1) Pneumonia (2) End stage renal disease (3) COPD (chronic obstructive pulmonary disease) (4) Hypertension (5) Neuropathy (6) BPH loc w urin obs/LUTS Inpatient Certification: I certify that the inpatient services were ordered in accordance with Medicare regulations governing the order. This includes certification that hospital inpatient services are reasonable and necessary and in the case of services not specified as inpatient-only under 42 CFR 419.22(n), that they are appropriately provided as inpatient services in accordance to with the 2-midnight benchmark under 43 CFR 412.3(e) Estimated Total Length of Stay (Days): 5 Plans for Post Hospital Care: [facility] - History History Provided By: Patient - Medical History Medical History: Medical History (Last Reviewed 10/08/18 @ 18:06 by Lety Reis) BPH loc w urin obs/LUTS (Acute) COPD (chronic obstructive pulmonary disease) (Acute) Hypertension (Acute) Anemia Degenerative disc disease ESRD (end stage renal disease) on dialysis GERD (gastroesophageal reflux disease) History of alcohol dependence History of squamous cell carcinoma - Surgical History Surgical History: Surgical History (Last Reviewed 10/08/18 @ 18:06 by Lety Reis) H/O hernia repair - Family History Family History: Family History (Last Reviewed 09/17/18 @ 09:10 by JENNIE Dang) Other Family history of cancer - Tobacco History Second Hand Smoke Exposure: No Tobacco Use In Past 30 Days: No Smoking Status: Former smoker Tobacco Type: Cigarettes Packs Per Day: 2 Cigarettes Per Day: 40 Years Smoked: 40 years: 80 - Alcohol History How Often Do You Have a Drink Containing Alcohol: Never - Substance Use History Substance History: No History of Abuse - Travel History Recent Travel in the [place] Within the Last 8 Weeks: No Recent Travel Out of the Country Within the Last 8 Weeks: No - Immunization History Tetanus Immunization: >5 Years Hx Influenza Vaccine This Season: Yes Medications and Allergies Active Medications: Active Medications Acetaminophen (Tylenol) 650 mg PO Q4H PRN PRN Reason: Temp > 100.4 Acetaminophen (Tylenol) 650 mg PO UNSCH PRN PRN Reason: SEE LABEL COMMENTS Acetaminophen/Butalbital/Caffeine (Fioricet 50-325-40) 1 tab PO Q4H PRN PRN Reason: FOR HEADACHE Last Admin: 10/09/18 05:38 Dose: 1 tab Hydrocodone Bitart/Acetaminophen (Sheldon 5/325) 1 tab PO Q4H PRN PRN Reason: PAIN 1-10 Al Hydroxide/Mg Hydroxide (Milk Of Luke Garcia) 30 ml PO Q12H PRN PRN Reason: Mild Constipation Albuterol (Ventolin Hfa Inh) 2 puff INH Q4H PRN PRN Reason: SHORTNESS OF BREATH Albuterol (Duoneb Neb (Lashae)) 1 ampul NEB Q6HR ALT NEB [facility] Last Admin: 10/09/18 08:06 Dose: 1 ampul Bisacodyl (Dulcolax Supp) 10 mg RECTAL DAILY PRN PRN Reason: SEVERE CONSITIPATION Brimonidine Tartrate (Alphagan P 0.15% Opth Drops) 1 drops EACH EYE BID [facility] Budesonide/Formoterol Fumarate (Symbicort 160/4.5 Mcg Inh) 1 puff INH BID LASHAE Clonidine HCl (Catapres) 0.1 mg PO UNSCH PRN PRN Reason: SEE LABEL COMMENTS Diphenhydramine HCl (Benadryl) 25 mg PO UNSCH PRN PRN Reason: SEE LABEL COMMENTS Doxepin HCl (Sinequan) 25 mg PO DAILY [facility] Last Admin: 10/09/18 08:36 Dose: 25 mg Doxepin HCl (Sinequan) 25 mg PO HS [facility] Epoetin González (Epogen Inj) 6,000 unit IV.PUSH UNSCH PRN PRN Reason: SEE LABEL COMMENTS Gabapentin (Neurontin) 100 mg PO BID [facility] Last Admin: 10/09/18 08:36 Dose: 100 mg Gelatin (Gelfoam 12 Mm/7 Mm Topical) 1 foam TOPICAL PRN PRN PRN Reason: help stop bleeding from site Gentamicin Sulfate (Gentamicin Inj) 20 mg OTHER WITH DIALYSIS PRN PRN Reason: Dwell Gentamycin Lock Heparin Sodium (Porcine) (Heparin Inj) 8,000 units OTHER WITH DIALYSIS PRN PRN Reason: for machine prime Heparin Sodium (Porcine) (Heparin Inj) 1,000 units OTHER WITH DIALYSIS PRN PRN Reason: Dwell Heparin to Fill Catheter Vancomycin HCl 1,000 mg/ (Sodium Chloride) 250 mls @ 250 mls/hr IV.SIG [facility] Last Infusion: 10/09/18 01:18 Dose: Infused Albumin Human (Flexbumin 25% Inj) 100 mls @ 60 mls/hr IV.SIG WITH DIALYSIS PRN PRN Reason: hypotension / volume replace Sodium Chloride (Ns Inj) 1,000 mls @ 0 mls/hr OTHER .Q0M PRN PRN Reason: for prime and rinse back Sodium Chloride (Ns Inj) 1,000 mls @ 0 mls/hr IV.CONT .Q0M PRN PRN Reason: hypotension / volume replace Sodium Chloride (Ns Inj) 1,000 mls @ 200 mls/hr OTHER .Q5H PRN PRN Reason: for dialyzer flush PRN Piperacillin/Tazobactam/Dextrose (Zosyn 2.25 Gm Premix) 50 mls @ 100 mls/hr IV.SIG Q8H [facility] Last Admin: 10/09/18 08:36 Dose: 100 mls/hr Lactulose (Lactulose Liq) 30 ml PO DAILY PRN PRN Reason: SEVERE CONSITIPATION Latanoprost (Xalatan 0.005% Opth Drops) 1 drop EACH EYE HS [facility] Losartan Potassium (Cozaar) 50 mg PO DAILY [facility] Last Admin: 10/09/18 08:36 Dose: 50 mg Mannitol (Mannitol Inj) 12.5 gm IV.PUSH UNSCH PRN PRN Reason: hypotension / volume replace Nitroglycerin (Nitrostat Sl) 0.4 mg SL Q5M PRN PRN Reason: CHEST PAIN Ondansetron HCl (Zofran Inj) 4 mg IV.PUSH UNSCH PRN PRN Reason: NAUSEA OR VOMITING Oxycodone/Acetaminophen (Percocet 5/325 Mg) 1 tab PO Q4H PRN PRN Reason: Acute Pain Prednisone (Deltasone) 10 mg PO DAILY [facility] Last Admin: 10/09/18 08:36 Dose: 10 mg Pregabalin (Lyrica) 25 mg PO TID [facility] Last Admin: 10/09/18 08:36 Dose: 25 mg Senna/Docusate Sodium (Denise-Colace) 1 tab PO BID [facility] Last Admin: 10/09/18 08:36 Dose: 1 tab Sennosides (Senokot) 17.2 mg PO Q12H PRN PRN Reason: Moderate Constipation Sodium Chloride (Ns Flush) 2 ml IV.FLUSH BID [facility] Last Admin: 10/09/18 08:37 Dose: 2 ml Sodium Chloride (Ns Flush) 2 ml IV.FLUSH PRN PRN PRN Reason: FLUSH AFTER USING IV ACCESS Sodium Chloride (Ns Flush) 5 ml IV.FLUSH PRN PRN PRN Reason: flush each lumen during HD Tamsulosin HCl (Flomax) 0.8 mg PO [facility] Allergies Allergy/AdvReac Type Severity Reaction Status Date / Time No Known Allergies Allergy Verified 10/08/18 18:07 Home Medications Medication Instructions Recorded Confirmed Type albuterol sulfate [Ventolin HFA] 2 puff INHALATION Q4H PRN 09/16/18 10/08/18 History brimonidine [Alphagan P] 1 drp EACH EYE BID 09/16/18 10/08/18 History [id number] 1 cap PO Q4H PRN 09/16/18 10/08/18 History [Fioricet] doxepin 25 mg PO HS 09/16/18 10/08/18 History fluticasone-salmeterol [Advair 1 puff INHALATION BID 09/16/18 10/08/18 History Diskus] gabapentin 100 mg PO BID 09/16/18 10/08/18 History latanoprost [Xalatan] 1 drp EACH EYE QPM 09/16/18 10/08/18 History losartan 50 mg PO DAILY 09/16/18 10/08/18 History prednisone 10 mg PO DAILY 09/16/18 10/08/18 History pregabalin [Lyrica] 25 mg PO TID 09/16/18 10/08/18 History tamsulosin 0.8 mg PO HS 09/16/18 10/08/18 History doxepin 25 mg PO DAILY 10/08/18 10/08/18 History levofloxacin [Levaquin] 500 mg PO DAILY 10/08/18 10/08/18 History Exam Vital signs: Vital Signs 10/08/18 18:05 10/08/18 19:41 10/08/18 20:09 Temperature 97.7 F 98 F Pulse Rate 121 H 110 H 95 H Respiratory Rate 22 18 Blood Pressure 127/59 L 139/79 Pulse Oximetry 97 95 10/08/18 22:54 10/08/18 22:55 10/09/18 00:06 Temperature Pulse Rate 90 116 H Respiratory Rate 18 24 Blood Pressure 132/96 H Pulse Oximetry 95 95 93 L 10/09/18 01:19 10/09/18 04:00 10/09/18 08:00 Temperature 97.2 F L 97.8 F 97.9 F Pulse Rate 105 H 88 104 H Respiratory Rate 16 16 Blood Pressure 132/71 112/64 120/66 Pulse Oximetry 94 L 97 96 10/09/18 08:08 Temperature Pulse Rate 90 Respiratory Rate Blood Pressure Pulse Oximetry 92 L Intake & Output 10/08/18 10/09/18 10/09/18 18:59 06:59 18:59 Intake Total 1420 / 1420 Output Total 50 / 50 Balance 1370 / 1370 Weight 51.71 kg 57.3 kg Intake: IV 1300 / 1300 Zosyn 2.25 GM Premix 50 ML @ 50 / 50 100 mls/hr IV.SIG ONCE ONE Rx#: [id number] NS Inj 1,000 ML @ 1000 mls/hr 1000 / 1000 IV.SIG BOLUS [facility] Rx#:[id number] Vancomycin Inj 1,000 MG In NS 250 / 250 Inj 250 ML @ 250 mls/hr IV.SIG [facility]SEK[employer] [facility] Rx#:[id number] Oral 120 / 120 Output: Urine 50 / 50 Other: Date of Last Bowel Movement 10/08/18 # Bowel Movements 0 - Constitutional no acute distress - Routine HEENT Exam Head: Present: normocephalic Eye: Present: PERRL - Routine Respiratory Exam Present: rhonchi, wheezes - Routine Cardiovascular Exam Present: S1, S2 - Routine Abdominal Exam Present: soft, normoactive bowel sounds - Routine Skin Exam Present: dry, warm - Routine Neurological Exam Present: alert Results - Labs Result diagrams: 10/08/18 20:00 10/08/18 20:00 Abnormal lab results 10/08/18 10/08/18 Range/Units 20:00 20:00 WBC 14.8 H (4.0-11.0) th/mm3 RBC 3.41 L (4.50-5.90) mil/mm3 Hgb 9.7 L (13.0-17.0) gm/dL Hct 30.9 L (39.0-51.0) % MCHC 31.4 L (32.0-36.0) % RDW 19.5 H (11.6-17.2) % Neut % (Auto) 87.4 H (16.0-70.0) % Lymph % (Auto) 4.4 L (9.0-44.0) % Neut # (Auto) 12.9 H (1.8-7.7) th/mm3 Lymph # (Auto) 0.7 L (1.0-4.8) th/mm3 [place] # (Auto) 1.2 H (0.0-0.9) th/mm3 Tear Drop Cells 1+ H (None) Ovalocytes 2+ H (None) Keratocytes Occ H (None) BUN 109 H (7-18) mg/dL Creatinine 7.05 H (0.60-1.30) mg/dL Estimated GFR 9 L (>89) mL/min Albumin 2.7 L (3.4-5.0) g/dL Short CBC 10/08/18 Range/Units 20:00 WBC 14.8 H (4.0-11.0) th/mm3 Hgb 9.7 L (13.0-17.0) gm/dL Hct 30.9 L (39.0-51.0) % Plt Count 231 (150-450) th/mm3 BMP 10/08/18 20:00 Sodium 139 Potassium 4.9 Chloride 107 Carbon Dioxide 22.9 BUN 109 H Creatinine 7.05 H Calcium 8.7 Liver Function 10/08/18 Range/Units 20:00 Total Bilirubin 0.5 (0.2-1.0) mg/dL AST 18 (15-37) U/L ALT 14 (12-78) U/L Alkaline Phosphatase 59 (45-117) U/L Albumin 2.7 L (3.4-5.0) g/dL - Imaging Impressions Chest X-Ray 10/08/18 19:56 CONCLUSION: Developing right lung infiltrates. Caprini VTE Risk Assessment Caprini VTE Risk Assessment: Moderate/High Risk (score >= 2) Caprini Risk Assessment Model: Point Value = 1 Point Value = 2 Point Value = 3 Point Value = 5 Age 41-60 Minor surgery BMI > 25 kg/m2 Swollen legs Varicose veins or History of unexplained or recurrent spontaneous Oral contraceptives or hormone replacement Sepsis (< 1 month) Serious lung disease, including pneumonia (< 1 month) Abnormal pulmonary function Acute myocardial infarction Congestive heart failure (< 1 month) History of inflammatory bowel disease Medical patient at bed rest Age 61-74 Arthroscopic surgery Major open surgery (> 45 min) Laparoscopic surgery (> 45 min) Malignancy Confined to bed (> 72 hours) Immobilizing plaster cast Central venous access Age >= 75 History of VTE Family history of VTE Factor V Leiden Prothrombin [id number] Lupus anticoagulant Anticardiolipin antibodies Elevated serum homocysteine Heparin-induced thrombocytopenia Other congenital or acquired thrombophilia Stroke (< 1 month) Elective arthroplasty Hip, pelvis, or leg fracture Acute spinal cord injury (< 1 month) Prophylaxis Regimen: Total Risk Factor Score Risk Level Prophylaxis Regimen 0-1 Low Early ambulation 2 Moderate Order ONE of the following: *Sequential Compression Device (SCD) *Heparin 5000 units SQ BID 3-4 Higher Order ONE of the following medications: *Heparin 5000 units SQ TID *Enoxaparin/Lovenox 40 mg SQ daily (WT < 150 kg, CrCl > 30 mL/min) *Enoxaparin/Lovenox 30 mg SQ daily (WT < 150 kg, CrCl > 10-29 mL/min) *Enoxaparin/Lovenox 30 mg SQ BID (WT < 150 kg, CrCl > 30 mL/min) AND/OR *Sequential Compression Device (SCD) 5 or more Highest Order ONE of the following medications: *Heparin 5000 units SQ TID (Preferred with Epidurals) *Enoxaparin/Lovenox 40 mg SQ daily (WT < 150 kg, CrCl > 30 mL/min) *Enoxaparin/Lovenox 30 mg SQ daily (WT < 150 kg, CrCl > 10-29 mL/min) *Enoxaparin/Lovenox 30 mg SQ BID (WT < 150 kg, CrCl > 30 mL/min) AND *Sequential Compression Device (SCD) Assessment and Plan - Assessment (1) Pneumonia Code(s): J18.9 - Pneumonia, unspecified organism Status: Resolved Plan: IV Zosyn, Oxygen supplement, bronchodilators (2) End stage renal disease Code(s): N18.6 - End stage renal disease Status: Acute Plan: Dialysis T//Sat (3) COPD (chronic obstructive pulmonary disease) Code(s): J44.9 - Chronic obstructive pulmonary disease, unspecified Status: Acute Plan: Cont with bronchodilators, oxygen supplement, prednisone (4) Hypertension Code(s): I10 - Essential (primary) hypertension Status: Acute Plan: Monitor, cont home medications (5) Neuropathy Code(s): G62.9 - Polyneuropathy, unspecified Status: Acute Plan: Controlled with gabapentin (6) BPH loc w urin obs/LUTS Code(s): N40.1 - Benign prostatic hyperplasia with lower urinary tract symptoms Status: Acute Plan: Cont flomax H&P: Quality - VTE Deep Vein Thrombosis/Pulmonary Embolism Present on Admission: No (1) Pneumonia Qualifiers: Laterality: right Lung location: lower lobe of lung
--- NOTE | 2018-10-09 11:42 | P.CONNP ---
<KendraMarcy - Last Filed: 10/09/18 11:30> History of Present Illness Service: Nephrology Consult date: 10/09/18 Requesting Physician: Nishant Johnson Reason for Consult: End stage renal disease on HD Primary Care Provider: Nishant Johnson DO History of Present Illness: Patient is an 83-year-old male who presents the emergency room from [facility] for evaluation with several complaints. He reported that he was shaking all over and weak. Per Notes patient was also hypotensive and tachycardic. Chest Xray is noted with infiltrates. Nephrology is consulted for end stage renal disease and management of hemodialysis. Dialysis days are on Saturday, , and Saturday. On exam he denies any shortness of breath, chest pain , nausea, vomiting, or diarrhea. Arrangements for dialysis were made for today. 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 - Medical History Medical History: Medical History (Last Reviewed 10/08/18 @ 18:06 by Lety Reis) BPH loc w urin obs/LUTS (Acute) COPD (chronic obstructive pulmonary disease) (Acute) Hypertension (Acute) Anemia Degenerative disc disease ESRD (end stage renal disease) on dialysis GERD (gastroesophageal reflux disease) History of alcohol dependence History of squamous cell carcinoma - Surgical History Surgical History: Surgical History (Last Reviewed 10/08/18 @ 18:06 by Lety Reis) H/O hernia repair - Family History Family History: Family History (Last Reviewed 09/17/18 @ 09:10 by JENNIE Dang) Other Family history of cancer - Tobacco History Second Hand Smoke Exposure: No Tobacco Use In Past 30 Days: No Smoking Status: Former smoker Tobacco Type: Cigarettes Packs Per Day: 2 Cigarettes Per Day: 40 Years Smoked: 40 years: 80 - Alcohol History How Often Do You Have a Drink Containing Alcohol: Never - Substance Use History Substance History: No History of Abuse - Travel History Recent Travel in the [place] Within the Last 8 Weeks: No Recent Travel Out of the Country Within the Last 8 Weeks: No - Immunization History Tetanus Immunization: >5 Years Hx Influenza Vaccine This Season: Yes Medications and Allergies Allergies Allergy/AdvReac Type Severity Reaction Status Date / Time No Known Allergies Allergy Verified 10/08/18 18:07 Home Medications Medication Instructions Recorded Confirmed Type albuterol sulfate [Ventolin HFA] 2 puff INHALATION Q4H PRN 09/16/18 10/08/18 History brimonidine [Alphagan P] 1 drp EACH EYE BID 09/16/18 10/08/18 History [id number] 1 cap PO Q4H PRN 09/16/18 10/08/18 History [Fioricet] doxepin 25 mg PO HS 09/16/18 10/08/18 History fluticasone-salmeterol [Advair 1 puff INHALATION BID 09/16/18 10/08/18 History Diskus] gabapentin 100 mg PO BID 09/16/18 10/08/18 History latanoprost [Xalatan] 1 drp EACH EYE QPM 09/16/18 10/08/18 History losartan 50 mg PO DAILY 09/16/18 10/08/18 History prednisone 10 mg PO DAILY 09/16/18 10/08/18 History pregabalin [Lyrica] 25 mg PO TID 09/16/18 10/08/18 History tamsulosin 0.8 mg PO HS 09/16/18 10/08/18 History doxepin 25 mg PO DAILY 10/08/18 10/08/18 History levofloxacin [Levaquin] 500 mg PO DAILY 10/08/18 10/08/18 History Active Medications: Active Medications Acetaminophen (Tylenol) 650 mg PO Q4H PRN PRN Reason: Temp > 100.4 Acetaminophen (Tylenol) 650 mg PO UNSCH PRN PRN Reason: SEE LABEL COMMENTS Acetaminophen/Butalbital/Caffeine (Fioricet 50-325-40) 1 tab PO Q4H PRN PRN Reason: FOR HEADACHE Last Admin: 10/09/18 05:38 Dose: 1 tab Hydrocodone Bitart/Acetaminophen ([place] 5/325) 1 tab PO Q4H PRN PRN Reason: PAIN 1-10 Al Hydroxide/Mg Hydroxide (Milk Of Magnmontana Liq) 30 ml PO Q12H PRN PRN Reason: Mild Constipation Albuterol (Ventolin Hfa Inh) 2 puff INH Q4H PRN PRN Reason: SHORTNESS OF BREATH Albuterol (Duoneb Neb ([facility])) 1 ampul NEB Q6HR ALT NEB LASHAE Last Admin: 10/09/18 08:06 Dose: 1 ampul Bisacodyl (Dulcolax Supp) 10 mg RECTAL DAILY PRN PRN Reason: SEVERE CONSITIPATION Brimonidine Tartrate (Alphagan P 0.15% Opth Drops) 1 drops EACH EYE BID [facility] Budesonide/Formoterol Fumarate (Symbicort 160/4.5 Mcg Inh) 1 puff INH BID [facility] Clonidine HCl (Catapres) 0.1 mg PO UNSCH PRN PRN Reason: SEE LABEL COMMENTS Diphenhydramine HCl (Benadryl) 25 mg PO UNSCH PRN PRN Reason: SEE LABEL COMMENTS Doxepin HCl (Sinequan) 25 mg PO DAILY [facility] Last Admin: 10/09/18 08:36 Dose: 25 mg Doxepin HCl (Sinequan) 25 mg PO HS [facility] Epoetin González (Epogen Inj) 6,000 unit IV.PUSH UNSCH PRN PRN Reason: SEE LABEL COMMENTS Gabapentin (Neurontin) 100 mg PO BID [facility] Last Admin: 10/09/18 08:36 Dose: 100 mg Gelatin (Gelfoam 12 Mm/7 Mm Topical) 1 foam TOPICAL PRN PRN PRN Reason: help stop bleeding from site Gentamicin Sulfate (Gentamicin Inj) 20 mg OTHER WITH DIALYSIS PRN PRN Reason: Dwell Gentamycin Lock Heparin Sodium (Porcine) (Heparin Inj) 8,000 units OTHER WITH DIALYSIS PRN PRN Reason: for machine prime Heparin Sodium (Porcine) (Heparin Inj) 1,000 units OTHER WITH DIALYSIS PRN PRN Reason: Dwell Heparin to Fill Catheter Vancomycin HCl 1,000 mg/ (Sodium Chloride) 250 mls @ 250 mls/hr IV.SIG [employer] [facility] Last Infusion: 10/09/18 01:18 Dose: Infused Albumin Human (Flexbumin 25% Inj) 100 mls @ 60 mls/hr IV.SIG WITH DIALYSIS PRN PRN Reason: hypotension / volume replace Sodium Chloride (Ns Inj) 1,000 mls @ 0 mls/hr OTHER .Q0M PRN PRN Reason: for prime and rinse back Sodium Chloride (Ns Inj) 1,000 mls @ 0 mls/hr IV.CONT .Q0M PRN PRN Reason: hypotension / volume replace Sodium Chloride (Ns Inj) 1,000 mls @ 200 mls/hr OTHER .Q5H PRN PRN Reason: for dialyzer flush PRN Piperacillin/Tazobactam/Dextrose (Zosyn 2.25 Gm Premix) 50 mls @ 100 mls/hr IV.SIG Q8H [facility] Last Admin: 10/09/18 08:36 Dose: 100 mls/hr Lactulose (Lactulose Liq) 30 ml PO DAILY PRN PRN Reason: SEVERE CONSITIPATION Latanoprost (Xalatan 0.005% Opth Drops) 1 drop EACH EYE [facility] Losartan Potassium (Cozaar) 50 mg PO DAILY [facility] Last Admin: 10/09/18 08:36 Dose: 50 mg Mannitol (Mannitol Inj) 12.5 gm IV.PUSH UNSCH PRN PRN Reason: hypotension / volume replace Nitroglycerin (Nitrostat Sl) 0.4 mg SL Q5M PRN PRN Reason: CHEST PAIN Ondansetron HCl (Zofran Inj) 4 mg IV.PUSH UNSCH PRN PRN Reason: NAUSEA OR VOMITING Oxycodone/Acetaminophen (Percocet 5/325 Mg) 1 tab PO Q4H PRN PRN Reason: Acute Pain Prednisone (Deltasone) 10 mg PO DAILY [facility] Last Admin: 10/09/18 08:36 Dose: 10 mg Pregabalin (Lyrica) 25 mg PO TID [facility] Last Admin: 10/09/18 08:36 Dose: 25 mg Senna/Docusate Sodium (Denise-Colace) 1 tab PO BID [facility] Last Admin: 10/09/18 08:36 Dose: 1 tab Sennosides (Senokot) 17.2 mg PO Q12H PRN PRN Reason: Moderate Constipation Sodium Chloride (Ns Flush) 2 ml IV.FLUSH BID [facility] Last Admin: 10/09/18 08:37 Dose: 2 ml Sodium Chloride (Ns Flush) 2 ml IV.FLUSH PRN PRN PRN Reason: FLUSH AFTER USING IV ACCESS Sodium Chloride (Ns Flush) 5 ml IV.FLUSH PRN PRN PRN Reason: flush each lumen during HD Tamsulosin HCl (Flomax) 0.8 mg PO [facility] Exam Vital signs: Vital Signs 10/08/18 18:05 10/08/18 19:41 10/08/18 20:09 Temperature 97.7 F 98 F Pulse Rate 121 H 110 H 95 H Respiratory Rate 22 18 Blood Pressure 127/59 L 139/79 Pulse Oximetry 97 95 10/08/18 22:54 10/08/18 22:55 10/09/18 00:06 Temperature Pulse Rate 90 116 H Respiratory Rate 18 24 Blood Pressure 132/96 H Pulse Oximetry 95 95 93 L 10/09/18 01:19 10/09/18 04:00 10/09/18 08:00 Temperature 97.2 F L 97.8 F 97.9 F Pulse Rate 105 H 88 104 H Respiratory Rate 16 16 Blood Pressure 132/71 112/64 120/66 Pulse Oximetry 94 L 97 96 10/09/18 08:08 Temperature Pulse Rate 90 Respiratory Rate Blood Pressure Pulse Oximetry 92 L Intake & Output 10/08/18 10/09/18 10/09/18 18:59 06:59 18:59 Intake Total 1420 / 1420 Output Total 50 / 50 Balance 1370 / 1370 Weight 51.71 kg 57.3 kg Intake: IV 1300 / 1300 Zosyn 2.25 GM Premix 50 ML @ 50 / 50 100 mls/hr IV.SIG ONCE ONE Rx#: [id number] NS Inj 1,000 ML @ 1000 mls/hr 1000 / 1000 IV.SIG BOLUS LASHAE Rx#:[id number] Vancomycin Inj 1,000 MG In NS 250 / 250 Inj 250 ML @ 250 mls/hr IV.SIG [employer] [facility]E Rx#:[id number] Oral 120 / 120 Output: Urine 50 / 50 Other: Date of Last Bowel Movement 10/08/18 # Bowel Movements 0 Narrative: GENERAL: Alert and oriented. SKIN: Warm and dry. NECK: Supple, trachea midline. No JVD. CARDIOVASCULAR: Regular rate and rhythm without murmurs, gallops, or rubs. Right IJ permacath RESPIRATORY: Breath sounds diminished equal bilaterally. No accessory muscle use. GASTROINTESTINAL: Abdomen soft, non-tender, nondistended. MUSCULOSKELETAL: No cyanosis, or edema. BACK: Nontender without obvious deformity. No CVA tenderness. Results - Lab Results 10/08/18 20:00 10/08/18 20:00 Most recent lab results Calcium 8.7 mg/dL (8.5-10.1) 10/08/18 20:00 Assessment and Plan - Assessment (1) End-stage renal disease on hemodialysis Code(s): N18.6 - End stage renal disease; Z99.2 - Dependence on renal dialysis Status: Acute Plan: Hemodialysis on //Saturday Right IJ perma cath Epogen with dialysis Orders placed and dialysis contacted for HD today, 2 k bath will remove fluid as tolerated. (2) Hypertension Code(s): I10 - Essential (primary) hypertension Status: Resolved Plan: Will monitor, home meds continued (3) Anemia of renal disease Code(s): D63.1 - Anemia in chronic kidney disease Status: Acute Plan: Stable, epogen with dialysis. (4) Pneumonia Code(s): J18.9 - Pneumonia, unspecified organism Status: Resolved Plan: On antibiotics, reports shortness of breath has already improved with breathing treatments <Juan Green - Last Filed: 10/12/18 21:59> History of Present Illness Primary Care Provider: Nishant Johnson DO [facility] - Medical History Medical History: Medical History (Last Reviewed 10/08/18 @ 18:06 by Lety Reis) BPH loc w urin obs/LUTS (Acute) COPD (chronic obstructive pulmonary disease) (Acute) Hypertension (Acute) Anemia Degenerative disc disease ESRD (end stage renal disease) on dialysis GERD (gastroesophageal reflux disease) History of alcohol dependence History of squamous cell carcinoma - Surgical History Surgical History: Surgical History (Last Reviewed 10/08/18 @ 18:06 by Lety Reis) H/O hernia repair - Family History Family History: Family History (Last Reviewed 09/17/18 @ 09:10 by JENNIE Dang) Other Family history of cancer Medications and Allergies Active Medications: Active Medications Acetaminophen (Tylenol) 650 mg PO Q4H PRN PRN Reason: Temp > 100.4 Acetaminophen (Tylenol) 650 mg PO UNSCH PRN PRN Reason: SEE LABEL COMMENTS Acetaminophen/Butalbital/Caffeine (Fioricet 50-325-40) 1 tab PO Q4H PRN PRN Reason: FOR HEADACHE Last Admin: 10/12/18 02:21 Dose: 1 tab Hydrocodone Bitart/Acetaminophen ([place] 5/325) 1 tab PO Q4H PRN PRN Reason: PAIN 1-10 Last Admin: 10/12/18 02:21 Dose: 1 tab Al Hydroxide/Mg Hydroxide (Milk Of Magnesia Liq) 30 ml PO Q12H PRN PRN Reason: Mild Constipation Albuterol (Ventolin Hfa Inh) 2 puff INH Q4H PRN PRN Reason: SHORTNESS OF BREATH Albuterol (Duoneb Neb ([facility])) 1 ampul NEB Q6HR ALT NEB [facility] Last Admin: 10/12/18 20:36 Dose: 1 ampul Bisacodyl (Dulcolax Supp) 10 mg RECTAL DAILY PRN PRN Reason: SEVERE CONSITIPATION Brimonidine Tartrate (Alphagan P 0.15% Opth Drops) 1 drops EACH EYE BID [facility] Last Admin: 10/12/18 20:04 Dose: 1 drops Budesonide/Formoterol Fumarate (Symbicort 160/4.5 Mcg Inh) 1 puff INH BID [facility] Last Admin: 10/12/18 20:04 Dose: 1 puff Clonidine HCl (Catapres) 0.1 mg PO UNSCH PRN PRN Reason: SEE LABEL COMMENTS Diphenhydramine HCl (Benadryl) 25 mg PO UNSCH PRN PRN Reason: SEE LABEL COMMENTS Doxepin HCl (Sinequan) 25 mg PO DAILY [facility] Last Admin: 10/12/18 08:15 Dose: 25 mg Doxepin HCl (Sinequan) 25 mg PO HS [facility] Last Admin: 10/12/18 20:05 Dose: 25 mg Epoetin González (Epogen Inj) 6,000 unit IV.PUSH UNSCH PRN PRN Reason: SEE LABEL COMMENTS Last Admin: 10/11/18 12:39 Dose: 6,000 unit Gabapentin (Neurontin) 100 mg PO BID [facility] Last Admin: 10/12/18 20:05 Dose: 100 mg Gelatin (Gelfoam 12 Mm/7 Mm Topical) 1 foam TOPICAL PRN PRN PRN Reason: help stop bleeding from site Gentamicin Sulfate (Gentamicin Inj) 20 mg OTHER WITH DIALYSIS PRN PRN Reason: Dwell Gentamycin Lock Last Admin: 10/11/18 12:39 Dose: 20 mg Guaifenesin (Mucinex Er) 600 mg PO BID [facility] Last Admin: 10/12/18 20:05 Dose: 600 mg Heparin Sodium (Porcine) (Heparin Inj) 8,000 units OTHER WITH DIALYSIS PRN PRN Reason: for machine prime Heparin Sodium (Porcine) (Heparin Inj) 1,000 units OTHER WITH DIALYSIS PRN PRN Reason: Dwell Heparin to Fill Catheter Last Admin: 10/11/18 12:39 Dose: 1,000 units Vancomycin HCl 1,000 mg/ (Sodium Chloride) 250 mls @ 250 mls/hr IV.SIG [employer] [facility] Last Infusion: 10/09/18 01:18 Dose: Infused Albumin Human (Flexbumin 25% Inj) 100 mls @ 60 mls/hr IV.SIG WITH DIALYSIS PRN PRN Reason: hypotension / volume replace Sodium Chloride (Ns Inj) 1,000 mls @ 0 mls/hr OTHER .Q0M PRN PRN Reason: for prime and rinse back Sodium Chloride (Ns Inj) 1,000 mls @ 0 mls/hr IV.CONT .Q0M PRN PRN Reason: hypotension / volume replace Sodium Chloride (Ns Inj) 1,000 mls @ 200 mls/hr OTHER .Q5H PRN PRN Reason: for dialyzer flush PRN Piperacillin/Tazobactam/Dextrose (Zosyn 2.25 Gm Premix) 50 mls @ 100 mls/hr IV.SIG Q8H [facility] Last Infusion: 10/12/18 17:11 Dose: Infused Lactulose (Lactulose Liq) 30 ml PO DAILY PRN PRN Reason: SEVERE CONSITIPATION Latanoprost (Xalatan 0.005% Opth Drops) 1 drop EACH EYE HS [facility] Last Admin: 10/12/18 20:04 Dose: 1 drop Lorazepam (Ativan) 0.5 mg PO Q8H PRN PRN Reason: ANXIETY Last Admin: 10/12/18 12:29 Dose: 0.5 mg Losartan Potassium (Cozaar) 50 mg PO DAILY [facility] Last Admin: 10/12/18 08:14 Dose: 50 mg Mannitol (Mannitol Inj) 12.5 gm IV.PUSH UNSCH PRN PRN Reason: hypotension / volume replace Nitroglycerin (Nitrostat Sl) 0.4 mg SL Q5M PRN PRN Reason: CHEST PAIN Ondansetron HCl (Zofran Inj) 4 mg IV.PUSH UNSCH PRN PRN Reason: NAUSEA OR VOMITING Oxycodone/Acetaminophen (Percocet 5/325 Mg) 1 tab PO Q4H PRN PRN Reason: Acute Pain Last Admin: 10/12/18 09:33 Dose: 1 tab Prednisone (Deltasone) 10 mg PO DAILY [facility] Last Admin: 10/12/18 08:14 Dose: 10 mg Pregabalin (Lyrica) 25 mg PO TID [facility] Last Admin: 10/12/18 17:22 Dose: 25 mg Senna/Docusate Sodium (Denise-Colace) 1 tab PO BID [facility] Last Admin: 10/12/18 20:05 Dose: 1 tab Sennosides (Senokot) 17.2 mg PO Q12H PRN PRN Reason: Moderate Constipation Sodium Chloride (Ns Flush) 2 ml IV.FLUSH BID [facility] Last Admin: 10/12/18 20:11 Dose: 2 ml Sodium Chloride (Ns Flush) 2 ml IV.FLUSH PRN PRN PRN Reason: FLUSH AFTER USING IV ACCESS Last Admin: 10/12/18 20:05 Dose: 2 ml Sodium Chloride (Ns Flush) 5 ml IV.FLUSH PRN PRN PRN Reason: flush each lumen during HD Tamsulosin HCl (Flomax) 0.8 mg PO HS [facility] Last Admin: 10/12/18 20:05 Dose: 0.8 mg Exam Vital signs: Vital Signs 10/12/18 00:00 10/12/18 03:53 10/12/18 04:00 Temperature 98.5 F 98.4 F Pulse Rate 109 H 79 89 Respiratory Rate 17 17 16 Blood Pressure 101/57 L 99/58 L Pulse Oximetry 98 98 10/12/18 08:00 10/12/18 08:27 10/12/18 12:00 Temperature 97.5 F L 97.6 F Pulse Rate 105 H 97 H 98 H Respiratory Rate 20 14 20 Blood Pressure 109/58 L 95/53 L Pulse Oximetry 96 95 10/12/18 16:00 10/12/18 19:21 10/12/18 20:39 Temperature 97.6 F 97.8 F Pulse Rate 90 107 H 88 Respiratory Rate 20 16 16 Blood Pressure 100/56 L 99/57 L Pulse Oximetry 98 96 Intake & Output 10/12/18 10/12/18 10/13/18 06:59 18:59 06:59 Intake Total 510 / 510 820 / 820 Output Total 300 / 300 Balance 210 / 210 820 / 820 Weight 54.5 kg Intake: IV 50 / 50 100 / 100 Zosyn 2.25 GM Premix 50 ML @ 50 / 50 100 / 100 100 mls/hr IV.SIG Q8H L[facility]E Rx#: [id number] Oral 460 / 460 720 / 720 Output: Urine 300 / 300 Other: # Voids 3 Date of Last Bowel Movement 10/10/18 10/10/18 10/12/18 # Bowel Movements 0 Results - Lab Results 10/11/18 05:41 10/11/18 05:41 Most recent lab results Calcium 8.5 mg/dL (8.5-10.1) 10/11/18 05:41 Assessment and Plan - Assessment (1) End-stage renal disease on hemodialysis Code(s): N18.6 - End stage renal disease; Z99.2 - Dependence on renal dialysis Status: Acute Plan: Patient seen and examined, agree with above. Patient with end stage renal disease, admitted with weakness, decrease oral intake. HD today, follow the labs. (2) Anemia of renal disease Code(s): D63.1 - Anemia in chronic kidney disease Status: Acute (3) Pneumonia Code(s): J18.9 - Pneumonia, unspecified organism Status: Acute <Marcy Gardner - Last Filed: 10/09/18 11:30> (4) Pneumonia Qualifiers: Laterality: right Lung location: lower lobe of lung <Juan Green - Last Filed: 10/12/18 21:59> (3) Pneumonia Qualifiers: Laterality: right Lung location: lower lobe of lung
--- NOTE | 2018-10-09 12:16 | ECG ---
Date Performed: 10/08/2018 Time Performed: 20:33:01 PTAGE: 83 years EKG: Sinus rhythm NORMAL ECG Since the PREVIOUS TRACING , no significant change noted PREVIOUS TRACIN09/16/2018 18.22 DOCTOR: Nathan Wellington Interpretating Date/Time 10/09/2018 12:13:56
[2018-10-09] MEDS: Budesonide-Formoterol 160/4.5 MCG 6 GM Inhaler INH SCH ×2 (13:41→20:42)
[2018-10-09] MEDS: Brimonidine 0.15% Opth Drops 5 ML Bottle EACH EYE SCH ×2 (13:41→20:42)
[2018-10-09] MEDS: Heparin 10,000 UNITS/10 ML Vial (for IV use) OTHER PRN (17:42)
[2018-10-09] MEDS: Latanoprost 0.005% Opth Drops 2.5 ML Bottle EACH EYE SCH (23:11)
[2018-10-10] MEDS: Butalbital/APAP/Caff 50/325/40 MG Tablet PO PRN (05:07)
[2018-10-10] MEDS: Gabapentin 100 MG Capsule PO SCH ×2 (08:25→22:06)
[2018-10-10] MEDS: Piperacil/Tazo 2.25 GM Premix 50 ML IV.SIG SCH ×2 (08:25→16:24)
[2018-10-10] MEDS: Budesonide-Formoterol 160/4.5 MCG 6 GM Inhaler INH SCH ×2 (08:26→22:08)
[2018-10-10] MEDS: Senna/Docusate Sodium 8.6/50 MG Tablet PO SCH ×2 (08:26→22:08)
[2018-10-10] MEDS: predniSONE 10 MG Tablet PO SCH (08:26)
[2018-10-10] MEDS: Pregabalin 25 MG Capsule PO SCH ×3 (08:26→17:00)
[2018-10-10] MEDS: Brimonidine 0.15% Opth Drops 5 ML Bottle EACH EYE SCH ×2 (08:26→22:08)
--- NOTE | 2018-10-10 08:36 | P.PNFP ---
Subjective Interval history: No apparent distress Dialysis yesterday Still coughing up sputum Complains of feeling anxious. Denies Cp Results - Labs Result diagrams: 10/08/18 20:00 10/08/18 20:00 Physical Exam Vital signs: Vital Signs 10/09/18 12:00 10/09/18 16:00 10/09/18 19:37 Temperature 97.8 F Pulse Rate 82 91 H Respiratory Rate 14 Blood Pressure 92/55 L Pulse Oximetry 96 94 L 10/09/18 20:00 10/10/18 00:00 10/10/18 03:11 Temperature 97.5 F L 97.8 F Pulse Rate 92 H 92 H 99 H Respiratory Rate 18 18 20 Blood Pressure 117/56 L 111/57 L Pulse Oximetry 98 97 10/10/18 03:17 10/10/18 04:00 10/10/18 08:00 Temperature 98.2 F 98.1 F Pulse Rate 83 106 H 73 Respiratory Rate 18 17 Blood Pressure 99/55 L 107/57 L Pulse Oximetry 99 98 Intake & Output 10/09/18 10/10/18 10/10/18 18:59 06:59 18:59 Intake Total 530 / 530 410 / 410 Output Total 2200 / 2200 Balance -1670 / -1670 410 / 410 Weight 55.4 kg Intake: IV 50 / 50 50 / 50 Zosyn 2.25 GM Premix 50 ML @ 50 / 50 50 / 50 100 mls/hr IV.SIG Q8H [facility] Rx#: [id number] Oral 480 / 480 360 / 360 Output: Urine 200 / 200 Hemodialysis Amount 1999 / 1999 Other: # Voids 2 Date of Last Bowel Movement 10/08/18 10/08/18 # Bowel Movements 0 1 - Constitutional no acute distress - Routine HEENT Exam Eye: Present: PERRL ENT: Present: mucous membranes moist - Routine Respiratory Exam Present: rhonchi, wheezes, diminished air movement - Routine Cardiovascular Exam Present: S1, S2 - Routine Abdominal Exam Present: soft - Routine Skin Exam Present: dry, warm - Routine Neurological Exam Present: alert, oriented X3 - Routine Psychiatric Exam Present: cooperative Assessment and Plan - Assessment (1) Pneumonia Code(s): J18.9 - Pneumonia, unspecified organism Status: Resolved Plan: IV Zosyn, Oxygen supplement, bronchodilators (2) End stage renal disease Code(s): N18.6 - End stage renal disease Status: Acute Plan: Dialysis T//Sat (3) COPD (chronic obstructive pulmonary disease) Code(s): J44.9 - Chronic obstructive pulmonary disease, unspecified Status: Acute Plan: Cont with bronchodilators, oxygen supplement, prednisone (4) Hypertension Code(s): I10 - Essential (primary) hypertension Status: Acute Plan: Monitor, cont home medications (5) Neuropathy Code(s): G62.9 - Polyneuropathy, unspecified Status: Acute Plan: Controlled with gabapentin (6) BPH loc w urin obs/LUTS Code(s): N40.1 - Benign prostatic hyperplasia with lower urinary tract symptoms Status: Acute Plan: Cont flomax - Assessment and Plan 10/10/18- Had dialysis yesterday, tolerated well. Cont IV Zosyn for PNA. Sat's maintained on 2liters NC, Bronchodilators. He voices he is feeling anxious, low dose Ativan prescribed. Will consult PT. Vss afebrile. (1) Pneumonia Qualifiers: Laterality: right Lung location: lower lobe of lung
[2018-10-10] MEDS: LORazepam 0.5 MG Tablet PO PRN (12:24)
--- NOTE | 2018-10-10 21:32 | P.PNNP ---
Subjective Interval history: Patient seen in the afternoon, mild SOB, started eating , not in distress. Physical Exam Vital signs: Vital Signs 10/10/18 00:00 10/10/18 03:11 10/10/18 03:17 Temperature 97.8 F Pulse Rate 92 H 99 H 83 Respiratory Rate 18 20 Blood Pressure 111/57 L Pulse Oximetry 97 10/10/18 04:00 10/10/18 08:00 10/10/18 08:41 Temperature 98.2 F 98.1 F Pulse Rate 106 H 82 83 Respiratory Rate 18 17 16 Blood Pressure 99/55 L 107/57 L Pulse Oximetry 99 98 97 10/10/18 12:00 10/10/18 16:00 10/10/18 19:37 Temperature 97.8 F 97.5 F L Pulse Rate 103 H 110 H 84 Respiratory Rate 17 16 18 Blood Pressure 111/59 L 104/60 Pulse Oximetry 97 98 95 10/10/18 20:00 Temperature 97.6 F Pulse Rate 91 H Respiratory Rate 20 Blood Pressure 98/67 L Pulse Oximetry 95 Intake & Output 10/10/18 10/10/18 10/11/18 06:59 18:59 06:59 Intake Total 410 / 410 580 / 580 Output Total 500 / 500 Balance 410 / 410 80 / 80 Weight 55.4 kg Intake: IV 50 / 50 100 / 100 Zosyn 2.25 GM Premix 50 ML @ 50 / 50 100 / 100 100 mls/hr IV.SIG Q8H [facility] Rx#: [id number] Oral 360 / 360 480 / 480 Output: Urine 500 / 500 Other: # Voids 2 Date of Last Bowel Movement 10/08/18 # Bowel Movements 1 Narrative: GENERAL: Alert and oriented. SKIN: Warm and dry. NECK: Supple, trachea midline. No JVD. CARDIOVASCULAR: Regular rate and rhythm without murmurs, gallops, or rubs. Right IJ permacath RESPIRATORY: Breath sounds diminished equal bilaterally. No accessory muscle use. GASTROINTESTINAL: Abdomen soft, non-tender, nondistended. MUSCULOSKELETAL: No cyanosis, or edema. BACK: Nontender without obvious deformity. No CVA tenderness. Assessment and Plan - Assessment (1) End-stage renal disease on hemodialysis Code(s): N18.6 - End stage renal disease; Z99.2 - Dependence on renal dialysis Status: Acute Plan: Hemodialysis on //Saturday Right IJ perma cath Epogen with dialysis HD done yesterday, tolerated well. BP is stable. (2) Hypertension Code(s): I10 - Essential (primary) hypertension Status: Resolved Qualifiers: Plan: Will monitor, home meds continued (3) Anemia of renal disease Code(s): D63.1 - Anemia in chronic kidney disease Status: Acute Plan: Stable, epogen with dialysis. (4) Pneumonia Code(s): J18.9 - Pneumonia, unspecified organism Status: Resolved Qualifiers: Laterality: right Lung location: lower lobe of lung Plan: On antibiotics, reports shortness of breath has already improved with breathing treatments
[2018-10-10] MEDS: Latanoprost 0.005% Opth Drops 2.5 ML Bottle EACH EYE SCH (22:09)
[2018-10-11] MEDS: Piperacil/Tazo 2.25 GM Premix 50 ML IV.SIG SCH ×4 (01:16→23:20)
[2018-10-11] MEDS: LORazepam 0.5 MG Tablet PO PRN ×2 (01:26→13:37)
[2018-10-11 06:51] LABS: Hematocrit 26.2 % (39.0-51.0); Hemoglobin 8.1 gm/dL (13.0-17.0); Mean Corpuscular Hemoglobin 28.1 pg (27.0-34.0); Mean Platelet Volume 7.7 fL (7.0-11.0); Platelet Count 203 th/mm3 (150-450); Red Blood Count 2.88 mil/mm3 (4.50-5.90); Red Cell Distribution Width 20.4 % (11.6-17.2); White Blood Count 6.7 th/mm3 (4.0-11.0)
[2018-10-11 06:52] LABS: Mean Corpuscular HGB Conc 30.9 % (32.0-36.0)
[2018-10-11 07:19] LABS: Calcium 8.5 mg/dL (8.5-10.1); Carbon Dioxide 27.8 meq/L (21.0-32.0); Potassium 4.3 meq/L (3.5-5.1)
[2018-10-11] MEDS: predniSONE 10 MG Tablet PO SCH (08:14)
[2018-10-11] MEDS: Senna/Docusate Sodium 8.6/50 MG Tablet PO SCH ×2 (08:14→20:11)
[2018-10-11] MEDS: Pregabalin 25 MG Capsule PO SCH ×3 (08:14→17:26)
[2018-10-11] MEDS: Gabapentin 100 MG Capsule PO SCH ×2 (08:14→20:11)
[2018-10-11] MEDS: Budesonide-Formoterol 160/4.5 MCG 6 GM Inhaler INH SCH ×2 (08:15→20:12)
[2018-10-11] MEDS: Brimonidine 0.15% Opth Drops 5 ML Bottle EACH EYE SCH ×2 (08:15→20:12)
--- NOTE | 2018-10-11 10:38 | P.PNFP ---
Subjective Interval history: He tells me his breathing is slightly today but C/O "thick sputum with cough". Results - Labs Result diagrams: 10/11/18 05:41 10/11/18 05:41 Abnormal lab results 10/11/18 10/11/18 Range/Units 05:41 05:41 RBC 2.88 L (4.50-5.90) mil/mm3 Hgb 8.1 L (13.0-17.0) gm/dL Hct 26.2 L (39.0-51.0) % MCHC 30.9 L (32.0-36.0) % RDW 20.4 H (11.6-17.2) % BUN 64 H (7-18) mg/dL Creatinine 5.35 H (0.60-1.30) mg/dL Estimated GFR 13 L (>89) mL/min Random Glucose 126 H (74-106) mg/dL Short CBC 10/11/18 Range/Units 05:41 WBC 6.7 (4.0-11.0) th/mm3 Hgb 8.1 L (13.0-17.0) gm/dL Hct 26.2 L (39.0-51.0) % Plt Count 203 (150-450) th/mm3 BMP 10/11/18 05:41 Sodium 140 Potassium 4.3 Chloride 105 Carbon Dioxide 27.8 BUN 64 H Creatinine 5.35 H Calcium 8.5 Physical Exam Vital signs: Vital Signs 10/10/18 12:00 10/10/18 16:00 10/10/18 19:37 Temperature 97.8 F 97.5 F L Pulse Rate 103 H 110 H 84 Respiratory Rate 17 16 18 Blood Pressure 111/59 L 104/60 Pulse Oximetry 97 98 95 10/10/18 20:00 10/11/18 00:00 10/11/18 00:10 Temperature 97.6 F 98.1 F Pulse Rate 96 H 99 H 96 H Respiratory Rate 20 16 12 Blood Pressure 98/67 L 107/62 Pulse Oximetry 95 97 97 10/11/18 04:00 10/11/18 08:00 10/11/18 08:21 Temperature 98 F 97.8 F Pulse Rate 116 H 113 H 113 H Respiratory Rate 17 18 18 Blood Pressure 105/56 L 114/81 Pulse Oximetry 97 97 Intake & Output 11/10/11/18 10/11/18 18:59 06:59 18:59 Intake Total 580 / 580 530 / 530 50 / 50 Output Total 500 / 500 100 / 100 Balance 80 / 80 430 / 430 50 / 50 Weight 55.1 kg Intake: IV 100 / 100 50 / 50 50 / 50 Zosyn 2.25 GM Premix 50 ML @ 100 / 100 50 / 50 50 / 50 100 mls/hr IV.SIG Q8H [facility] Rx#: [id number] Oral 480 / 480 480 / 480 Output: Urine 500 / 500 100 / 100 Other: Date of Last Bowel Movement 10/09/18 # Bowel Movements 0 - Constitutional no acute distress - Routine HEENT Exam Head: Present: normocephalic, atraumatic Eye: Present: PERRL, normal accommodation ENT: Present: mucous membranes moist - Routine Neck Exam Present: supple, full ROM - Routine Respiratory Exam Present: CTA bilaterally, diminished air movement - Routine Cardiovascular Exam Present: RRR, S1, S2 - Routine Abdominal Exam Present: soft, normoactive bowel sounds - Routine Extremities Exam Absent: cyanosis, edema - Routine Skin Exam Present: intact. Absent: erythema - Routine Neurological Exam Present: alert, oriented X3 - Routine Psychiatric Exam Present: normal affect Assessment and Plan - Assessment (1) Pneumonia Code(s): J18.9 - Pneumonia, unspecified organism Status: Acute Plan: IV Zosyn, Oxygen supplement, bronchodilators continues. Added guaifenesin to regimen due to C/O tenacious thick sputum (2) End stage renal disease Code(s): N18.6 - End stage renal disease Status: Acute Plan: Dialysis T/Th/Sat. Renal following. (3) COPD (chronic obstructive pulmonary disease) Code(s): J44.9 - Chronic obstructive pulmonary disease, unspecified Status: Acute Plan: Cont with bronchodilators, oxygen supplement, prednisone. Remains on IV antibiotics. (4) Hypertension Code(s): I10 - Essential (primary) hypertension Status: Acute Plan: Monitor, cont home medications. Controlled at present. (5) Neuropathy Code(s): G62.9 - Polyneuropathy, unspecified Status: Acute Plan: Pain controlled with gabapentin (6) BPH loc w urin obs/LUTS Code(s): N40.1 - Benign prostatic hyperplasia with lower urinary tract symptoms Status: Acute Plan: Cont flomax. Denies problems today. - Assessment and Plan 10/10/18- Had dialysis yesterday, tolerated well. Cont IV Zosyn for PNA. Sat's maintained on 2liters NC, Bronchodilators. He voices he is feeling anxious, low dose Ativan prescribed. Will consult PT. Vss afebrile. 10/11/18 - He tells me he is tolerating dialysis and indicates breathing is better but sputum is difficult to bring up so I will add guaifenesin to his regime. He remains on IV antibiotics, nebs and O2 for PNA (1) Pneumonia Qualifiers: Laterality: right Lung location: lower lobe of lung
--- NOTE | 2018-10-11 11:47 | P.PNNP ---
Subjective Interval history: Patient seen during HD, alert, mild SOB, with nasal cannula. Physical Exam Vital signs: Vital Signs 10/10/18 12:00 10/10/18 16:00 10/10/18 19:37 Temperature 97.8 F 97.5 F L Pulse Rate 103 H 110 H 84 Respiratory Rate 17 16 18 Blood Pressure 111/59 L 104/60 Pulse Oximetry 97 98 95 10/10/18 20:00 10/11/18 00:00 10/11/18 00:10 Temperature 97.6 F 98.1 F Pulse Rate 96 H 99 H 96 H Respiratory Rate 20 16 12 Blood Pressure 98/67 L 107/62 Pulse Oximetry 95 97 97 10/11/18 04:00 10/11/18 08:00 10/11/18 08:21 Temperature 98 F 97.8 F Pulse Rate 116 H 113 H 113 H Respiratory Rate 17 18 18 Blood Pressure 105/56 L 114/81 Pulse Oximetry 97 97 Intake & Output 10/10/18 10/11/18 10/11/18 18:59 06:59 18:59 Intake Total 580 / 580 530 / 530 50 / 50 Output Total 500 / 500 100 / 100 Balance 80 / 80 430 / 430 50 / 50 Weight 55.1 kg Intake: IV 100 / 100 50 / 50 50 / 50 Zosyn 2.25 GM Premix 50 ML @ 100 / 100 50 / 50 50 / 50 100 mls/hr IV.SIG Q8H [facility] Rx#: [id number] Oral 480 / 480 480 / 480 Output: Urine 500 / 500 100 / 100 Other: Date of Last Bowel Movement 10/09/18 # Bowel Movements 0 Narrative: GENERAL: Alert and oriented. SKIN: Warm and dry. NECK: Supple, trachea midline. No JVD. CARDIOVASCULAR: Regular rate and rhythm without murmurs, gallops, or rubs. Right IJ permacath RESPIRATORY: Breath sounds diminished equal bilaterally. No accessory muscle use. GASTROINTESTINAL: Abdomen soft, non-tender, nondistended. MUSCULOSKELETAL: No cyanosis, or edema. BACK: Nontender without obvious deformity. No CVA tenderness. Assessment and Plan - Assessment (1) End-stage renal disease on hemodialysis Code(s): N18.6 - End stage renal disease; Z99.2 - Dependence on renal dialysis Status: Acute Plan: Hemodialysis on //Saturday Right IJ perma cath Hgb. dropped slightly, Epogen with dialysis, follow Hgb. HD now, removing 3 liters. BP is stable. (2) Hypertension Code(s): I10 - Essential (primary) hypertension Status: Resolved Qualifiers: Plan: Will monitor, home meds continued (3) Anemia of renal disease Code(s): D63.1 - Anemia in chronic kidney disease Status: Acute Plan: Stable, epogen with dialysis. (4) Pneumonia Code(s): J18.9 - Pneumonia, unspecified organism Status: Acute Qualifiers: Laterality: right Lung location: lower lobe of lung Plan: On antibiotics, reports shortness of breath has already improved with breathing treatments
[2018-10-11] MEDS: Heparin 10,000 UNITS/10 ML Vial (for IV use) OTHER PRN (12:39)
[2018-10-11] MEDS: Latanoprost 0.005% Opth Drops 2.5 ML Bottle EACH EYE SCH (20:12)
[2018-10-11] MEDS: guaiFENesin 600 MG ER Tablet PO SCH (20:13)
[2018-10-12] MEDS: Butalbital/APAP/Caff 50/325/40 MG Tablet PO PRN (02:21)
[2018-10-12] MEDS: LORazepam 0.5 MG Tablet PO PRN ×2 (04:47→12:29)
[2018-10-12] MEDS: Piperacil/Tazo 2.25 GM Premix 50 ML IV.SIG SCH ×3 (08:13→23:37)
[2018-10-12] MEDS: Pregabalin 25 MG Capsule PO SCH ×3 (08:14→17:22)
[2018-10-12] MEDS: predniSONE 10 MG Tablet PO SCH (08:14)
[2018-10-12] MEDS: Senna/Docusate Sodium 8.6/50 MG Tablet PO SCH ×2 (08:15→20:05)
[2018-10-12] MEDS: guaiFENesin 600 MG ER Tablet PO SCH ×2 (08:15→20:05)
[2018-10-12] MEDS: Gabapentin 100 MG Capsule PO SCH ×2 (08:15→20:05)
[2018-10-12] MEDS: Budesonide-Formoterol 160/4.5 MCG 6 GM Inhaler INH SCH ×2 (08:17→20:04)
[2018-10-12] MEDS: Brimonidine 0.15% Opth Drops 5 ML Bottle EACH EYE SCH ×2 (08:17→20:04)
--- NOTE | 2018-10-12 11:14 | P.PNNP ---
Subjective Interval history: Resting comfortably with no acute complaints. Shortness of breath has improved , has cough. Denies any chest pain, nausea, or vomiting. <Marcy Gardner - Last Filed: 10/12/18 11:12> Physical Exam Vital signs: Vital Signs 10/11/18 12:00 10/11/18 16:00 10/11/18 20:00 Temperature 97.9 F 97.9 F 98.0 F Pulse Rate 108 H 90 102 H Respiratory Rate 18 18 15 Blood Pressure 156/97 H 103/73 102/55 L Pulse Oximetry 97 98 96 10/11/18 21:01 10/12/18 00:00 10/12/18 03:53 Temperature 98.5 F Pulse Rate 87 109 H 79 Respiratory Rate 16 17 17 Blood Pressure 101/57 L Pulse Oximetry 96 98 10/12/18 04:00 10/12/18 08:00 10/12/18 08:27 Temperature 98.4 F 97.5 F L Pulse Rate 89 105 H 97 H Respiratory Rate 16 20 14 Blood Pressure 99/58 L 109/58 L Pulse Oximetry 98 96 Intake & Output 10/11/18 10/12/18 10/12/18 18:59 06:59 18:59 Intake Total 340 / 340 510 / 510 50 / 50 Output Total 3000 / 3000 300 / 300 Balance -2660 / -2660 210 / 210 50 / 50 Weight 54.5 kg Intake: IV 100 / 100 50 / 50 50 / 50 Zosyn 2.25 GM Premix 50 ML @ 100 / 100 50 / 50 50 / 50 100 mls/hr IV.SIG Q8H [facility] Rx#: [id number] Oral 240 / 240 460 / 460 Output: Urine 300 / 300 Hemodialysis Amount 3000 / 3000 Other: # Voids 2 Date of Last Bowel Movement 10/10/18 10/10/18 # Bowel Movements 0 Narrative: GENERAL: Alert and oriented. SKIN: Warm and dry. NECK: Supple, trachea midline. No JVD. CARDIOVASCULAR: Regular rate and rhythm without murmurs, gallops, or rubs. Right IJ permacath RESPIRATORY: Breath sounds diminished equal bilaterally. No accessory muscle use. GASTROINTESTINAL: Abdomen soft, non-tender, nondistended. MUSCULOSKELETAL: No cyanosis, or edema. BACK: Nontender without obvious deformity. No CVA tenderness. <Marcy Gardner - Last Filed: 10/12/18 11:12> Vital signs: Vital Signs 10/13/18 00:00 10/13/18 04:00 10/13/18 08:00 Temperature 97.1 F L 97.6 F Pulse Rate 105 H 121 H 84 Respiratory Rate 20 20 Blood Pressure 112/53 L 100/69 Pulse Oximetry 100 98 10/13/18 12:00 10/13/18 16:00 10/13/18 20:00 Temperature 98.0 F 97.5 F L 97.8 F Pulse Rate 85 123 H 83 Respiratory Rate 20 20 18 Blood Pressure 119/60 183/85 H 145/82 H Pulse Oximetry 97 95 99 Intake & Output 10/13/18 10/13/18 10/14/18 06:59 18:59 06:59 Intake Total 910 / 910 580 / 580 Output Total 800 / 800 200 / 200 Balance 110 / 110 380 / 380 Weight 55.8 kg Intake: IV 50 / 50 100 / 100 Zosyn 2.25 GM Premix 50 ML @ 50 / 50 100 / 100 100 mls/hr IV.SIG Q8H [facility] Rx#: [id number] Oral 860 / 860 480 / 480 Output: Urine 800 / 800 200 / 200 Other: Date of Last Bowel Movement 10/13/18 10/13/18 # Bowel Movements 1 <Juan Green - Last Filed: 10/13/18 21:50> Assessment and Plan - Assessment (1) End-stage renal disease on hemodialysis Code(s): N18.6 - End stage renal disease; Z99.2 - Dependence on renal dialysis Status: Acute Plan: Hemodialysis on //Saturday Right IJ perma cath Epogen with dialysis, follow Hgb. HD yesterday tolerated well with UF of 3 liters. (2) Anemia of renal disease Code(s): D63.1 - Anemia in chronic kidney disease Status: Acute Plan: HGB dropped, on epogen with dialysis. Labs in AM (3) Pneumonia Code(s): J18.9 - Pneumonia, unspecified organism Status: Acute Qualifiers: Laterality: right Lung location: lower lobe of lung Plan: On antibiotics, reports shortness of breath has already improved with breathing treatments <Marcy Gardner - Last Filed: 10/12/18 11:12> - Assessment (1) End-stage renal disease on hemodialysis Code(s): N18.6 - End stage renal disease; Z99.2 - Dependence on renal dialysis Status: Acute Plan: Patient seen and examined, agree with above. HD done yesterday, tolerated well. Encourage oral intake. (2) Anemia of renal disease Code(s): D63.1 - Anemia in chronic kidney disease Status: Acute (3) Pneumonia Code(s): J18.9 - Pneumonia, unspecified organism Status: Acute Qualifiers: Laterality: right Lung location: lower lobe of lung <Juan Green - Last Filed: 10/13/18 21:50>
--- NOTE | 2018-10-12 11:21 | P.PNFP ---
Subjective Interval history: He tells me today and SOB is improved and cough better with guaifenesin. Pain controlled with oxycodone. Results - Labs Result diagrams: 10/11/18 05:41 10/11/18 05:41 Physical Exam Vital signs: Vital Signs 10/11/18 12:00 10/11/18 16:00 10/11/18 20:00 Temperature 97.9 F 97.9 F 98.0 F Pulse Rate 108 H 90 102 H Respiratory Rate 18 18 15 Blood Pressure 156/97 H 103/73 102/55 L Pulse Oximetry 97 98 96 10/11/18 21:01 10/12/18 00:00 10/12/18 03:53 Temperature 98.5 F Pulse Rate 87 109 H 79 Respiratory Rate 16 17 17 Blood Pressure 101/57 L Pulse Oximetry 96 98 10/12/18 04:00 10/12/18 08:00 10/12/18 08:27 Temperature 98.4 F 97.5 F L Pulse Rate 89 105 H 97 H Respiratory Rate 16 20 14 Blood Pressure 99/58 L 109/58 L Pulse Oximetry 98 96 Intake & Output 10/11/18 10/12/18 10/12/18 18:59 06:59 18:59 Intake Total 340 / 340 510 / 510 50 / 50 Output Total 3000 / 3000 300 / 300 Balance -2660 / -2660 210 / 210 50 / 50 Weight 54.5 kg Intake: IV 100 / 100 50 / 50 50 / 50 Zosyn 2.25 GM Premix 50 ML @ 100 / 100 50 / 50 50 / 50 100 mls/hr IV.SIG Q8H [facility] Rx#: [id number] Oral 240 / 240 460 / 460 Output: Urine 300 / 300 Hemodialysis Amount 3000 / 3000 Other: # Voids 2 Date of Last Bowel Movement 10/10/18 10/10/18 # Bowel Movements 0 - Constitutional no acute distress, chronically ill appearing - Routine HEENT Exam Head: Present: normocephalic, atraumatic Eye: Present: PERRL, normal accommodation ENT: Present: mucous membranes moist - Routine Neck Exam Present: supple, full ROM - Routine Respiratory Exam Present: crackles, diminished air movement - Routine Cardiovascular Exam Present: RRR, S1, S2 - Routine Abdominal Exam Present: soft, normoactive bowel sounds - Routine Extremities Exam Present: full ROM. Absent: cyanosis - Routine Skin Exam Present: intact - Routine Neurological Exam Present: alert, oriented X3 - Detailed Neurological Exam: Coma Scale Eye Opening: Spontaneous Verbal Response: Oriented Motor Response: Obey commands Annelise Coma Scale Total: 15 - Routine Psychiatric Exam Present: normal affect Assessment and Plan - Assessment (1) Pneumonia Code(s): J18.9 - Pneumonia, unspecified organism Status: Acute Plan: IV Zosyn, Oxygen supplement, bronchodilators continues. Added guaifenesin yesterday to regimen due to C/O tenacious thick sputum which he indicates is better today. (2) End stage renal disease Code(s): N18.6 - End stage renal disease Status: Acute Plan: Dialysis T//Sat. Renal following. (3) COPD (chronic obstructive pulmonary disease) Code(s): J44.9 - Chronic obstructive pulmonary disease, unspecified Status: Acute Plan: Cont with bronchodilators, oxygen supplement, prednisone. Remains on IV antibiotics and breathing is improved. (4) Hypertension Code(s): I10 - Essential (primary) hypertension Status: Acute Plan: Monitor, cont home medications. Controlled at present. (5) Neuropathy Code(s): G62.9 - Polyneuropathy, unspecified Status: Acute Plan: Pain controlled with gabapentin and oxycodone (6) BPH loc w urin obs/LUTS Code(s): N40.1 - Benign prostatic hyperplasia with lower urinary tract symptoms Status: Acute Plan: Cont flomax. Denies problems today. - Assessment and Plan 10/10/18- Had dialysis yesterday, tolerated well. Cont IV Zosyn for PNA. Sat's maintained on 2liters NC, Bronchodilators. He voices he is feeling anxious, low dose Ativan prescribed. Will consult PT. Vss afebrile. 10/11/18 - He tells me he is tolerating dialysis and indicates breathing is better but sputum is difficult to bring up so I will add guaifenesin to his regime. He remains on IV antibiotics, nebs and O2 for PNA 10/12/18 - He is afebrile and VSS and he is in NAD. He remains on antibiotics and tells me breathing and cough are better today. Will recheck CBC and CMP in the AM. (1) Pneumonia Qualifiers: Laterality: right Lung location: lower lobe of lung
[2018-10-12] MEDS: Latanoprost 0.005% Opth Drops 2.5 ML Bottle EACH EYE SCH (20:04)
[2018-10-13 07:34] LABS: Baso % (Auto) 0.3 % (0.0-2.0); Eos # (Auto) 0.3 th/mm3 (0.0-0.4); Eos % (Auto) 3.5 % (0.0-4.0); Hematocrit 25.9 % (39.0-51.0); Hemoglobin 8.3 gm/dL (13.0-17.0); Lymph % (Auto) 11.1 % (9.0-44.0); Mean Corpuscular HGB Conc 32.1 % (32.0-36.0); Mean Corpuscular Hemoglobin 29.2 pg (27.0-34.0); Mean Corpuscular Volume 91.1 fL (80.0-100.0); Mean Platelet Volume 8.3 fL (7.0-11.0); Mono # (Auto) 1.2 th/mm3 (0.0-0.9); Mono % (Auto) 13.3 % (0.0-8.0); Neut # (Auto) 6.4 th/mm3 (1.8-7.7); Neut % (Auto) 71.8 % (16.0-70.0); Platelet Count 223 th/mm3 (150-450); Red Blood Count 2.84 mil/mm3 (4.50-5.90); Red Cell Distribution Width 20.5 % (11.6-17.2); White Blood Count 8.9 th/mm3 (4.0-11.0)
[2018-10-13 08:01] LABS: Albumin 2.1 g/dL (3.4-5.0); Anion Gap 6 meq/L (5-15); Aspartate Aminotransferase 8 U/L (15-37); Blood Urea Nitrogen 58 mg/dL (7-18); Calcium 8.4 mg/dL (8.5-10.1); Carbon Dioxide 29.7 meq/L (21.0-32.0); Chloride 102 meq/L (98-107); Glomerular Filtration Rate 11 mL/min (>89); Glucose,Random 94 mg/dL (74-106); Potassium 4.6 meq/L (3.5-5.1); Sodium 138 meq/L (136-145)
[2018-10-13 08:02] LABS: Alanine Aminotransferase 12 U/L (12-78)
[2018-10-13] MEDS: Piperacil/Tazo 2.25 GM Premix 50 ML IV.SIG SCH ×3 (08:02→23:57)
[2018-10-13] MEDS: Senna/Docusate Sodium 8.6/50 MG Tablet PO SCH ×2 (08:03→20:34)
[2018-10-13] MEDS: predniSONE 10 MG Tablet PO SCH (08:03)
[2018-10-13] MEDS: Gabapentin 100 MG Capsule PO SCH ×2 (08:03→20:34)
[2018-10-13] MEDS: Pregabalin 25 MG Capsule PO SCH ×3 (08:03→17:38)
[2018-10-13] MEDS: guaiFENesin 600 MG ER Tablet PO SCH ×2 (08:03→20:34)
[2018-10-13] MEDS: Budesonide-Formoterol 160/4.5 MCG 6 GM Inhaler INH SCH ×2 (08:04→20:32)
[2018-10-13] MEDS: Brimonidine 0.15% Opth Drops 5 ML Bottle EACH EYE SCH ×2 (08:04→20:32)
[2018-10-13 08:05] LABS: Alkaline Phosphatase 46 U/L (45-117)
[2018-10-13] MEDS: LORazepam 0.5 MG Tablet PO PRN ×2 (11:19→23:56)
--- NOTE | 2018-10-13 12:27 | P.PNFP ---
Subjective Interval history: Slept well Denies CP, Palpations states SOB is at baseline Still w/ productive cough Results - Labs Result diagrams: 10/13/18 05:45 10/13/18 05:45 Abnormal lab results 10/13/18 10/13/18 10/13/18 Range/Units 05:45 05:45 11:38 RBC 2.84 L (4.50-5.90) mil/mm3 Hgb 8.3 L (13.0-17.0) gm/dL Hct 25.9 L (39.0-51.0) % RDW 20.5 H (11.6-17.2) % Neut % (Auto) 71.8 H (16.0-70.0) % [place] % (Auto) 13.3 H (0.0-8.0) % [place] # (Auto) 1.2 H (0.0-0.9) th/mm3 BUN 58 H (7-18) mg/dL Creatinine 5.90 H (0.60-1.30) mg/dL Estimated GFR 11 L (>89) mL/min POC Glucose 177 H (68-110) mg/dl Calcium 8.4 L (8.5-10.1) mg/dL AST 8 L (15-37) U/L Total Protein 6.0 L D (6.4-8.2) g/dL Albumin 2.1 L (3.4-5.0) g/dL Short CBC 10/13/18 Range/Units 05:45 WBC 8.9 (4.0-11.0) th/mm3 Hgb 8.3 L (13.0-17.0) gm/dL Hct 25.9 L (39.0-51.0) % Plt Count 223 (150-450) th/mm3 [facility] 10/13/18 05:45 Sodium 138 Potassium 4.6 Chloride 102 Carbon Dioxide 29.7 BUN 58 H Creatinine 5.90 H Calcium 8.4 L Liver Function 10/13/18 Range/Units 05:45 Total Bilirubin 0.4 (0.2-1.0) mg/dL AST 8 L (15-37) U/L ALT 12 (12-78) U/L Alkaline Phosphatase 46 (45-117) U/L Albumin 2.1 L (3.4-5.0) g/dL Physical Exam Vital signs: Vital Signs 12/02/18 16:00 10/12/18 19:21 10/12/18 20:00 Temperature 97.6 F 97.8 F Pulse Rate 90 107 H 94 H Respiratory Rate 20 16 Blood Pressure 100/56 L 99/57 L Pulse Oximetry 98 96 10/12/18 20:39 10/13/18 00:00 10/13/18 04:00 Temperature 97.1 F L 97.6 F Pulse Rate 88 105 H 121 H Respiratory Rate 16 20 20 Blood Pressure 112/53 L 100/69 Pulse Oximetry 100 98 Intake & Output 10/12/18 10/13/18 10/13/18 18:59 06:59 18:59 Intake Total 820 / 820 910 / 910 50 / 50 Output Total 800 / 800 Balance 820 / 820 110 / 110 50 / 50 Weight 55.8 kg Intake: IV 100 / 100 50 / 50 50 / 50 Zosyn 2.25 GM Premix 50 ML @ 100 / 100 50 / 50 50 / 50 100 mls/hr IV.SIG Q8H [facility] Rx#: [id number] Oral 720 / 720 860 / 860 Output: Urine 800 / 800 Other: # Voids 3 Date of Last Bowel Movement 10/10/18 10/13/18 10/13/18 # Bowel Movements 0 - Constitutional no acute distress - Routine HEENT Exam Eye: Present: PERRL ENT: Present: mucous membranes moist - Routine Respiratory Exam Present: rhonchi, wheezes, diminished air movement - Routine Cardiovascular Exam Present: S1, S2 - Routine Abdominal Exam Present: soft - Routine Extremities Exam Present: pulses intact - Routine Skin Exam Present: dry, warm - Routine Neurological Exam Present: alert, oriented X3 - Routine Psychiatric Exam Present: cooperative Assessment and Plan - Assessment (1) Pneumonia Code(s): J18.9 - Pneumonia, unspecified organism Status: Acute Plan: IV Zosyn, Oxygen supplement, bronchodilators continues. Added guaifenesin yesterday to regimen due to C/O tenacious thick sputum which he indicates is better today. (2) End stage renal disease Code(s): N18.6 - End stage renal disease Status: Acute Plan: Dialysis T/Th/Sat. Renal following. (3) COPD (chronic obstructive pulmonary disease) Code(s): J44.9 - Chronic obstructive pulmonary disease, unspecified Status: Acute Plan: Cont with bronchodilators, oxygen supplement, prednisone. Remains on IV antibiotics and breathing is improved. (4) Hypertension Code(s): I10 - Essential (primary) hypertension Status: Acute Plan: Monitor, cont home medications. Controlled at present. (5) Neuropathy Code(s): G62.9 - Polyneuropathy, unspecified Status: Acute Plan: Pain controlled with gabapentin and oxycodone (6) BPH loc w urin obs/LUTS Code(s): N40.1 - Benign prostatic hyperplasia with lower urinary tract symptoms Status: Acute Plan: Cont flomax. Denies problems today. - Assessment and Plan 10/10/18- Had dialysis yesterday, tolerated well. Cont IV Zosyn for PNA. Sat's maintained on 2liters NC, Bronchodilators. He voices he is feeling anxious, low dose Ativan prescribed. Will consult PT. Vss afebrile. 10/11/18 - He tells me he is tolerating dialysis and indicates breathing is better but sputum is difficult to bring up so I will add guaifenesin to his regime. He remains on IV antibiotics, nebs and O2 for PNA 10/12/18 - He is afebrile and VSS and he is in NAD. He remains on antibiotics and tells me breathing and cough are better today. Will recheck CBC and CMP in the AM. 10/13/18- Feeling better today, voices breathing better. Still has productive cough. Vss afebrile. Likely DC back to SNF after dialysis tomorrow. (1) Pneumonia Qualifiers: Laterality: right Lung location: lower lobe of lung
--- NOTE | 2018-10-13 16:21 | P.PNNP ---
Subjective Interval history: Doing well. Denies any shortness of breath, nausea, vomiting, or loose stools. Has non productive cough. <Marcy Gardner - Last Filed: 10/13/18 16:18> Physical Exam Vital signs: Vital Signs 10/12/18 19:21 10/12/18 20:00 10/12/18 20:39 Temperature 97.8 F Pulse Rate 107 H 94 H 88 Respiratory Rate 16 16 Blood Pressure 99/57 L Pulse Oximetry 96 10/13/18 00:00 10/13/18 04:00 10/13/18 08:00 Temperature 97.1 F L 97.6 F Pulse Rate 105 H 121 H 84 Respiratory Rate 20 20 Blood Pressure 112/53 L 100/69 Pulse Oximetry 100 98 10/13/18 12:00 Temperature Pulse Rate 87 Respiratory Rate Blood Pressure Pulse Oximetry Intake & Output 10/12/18 10/13/18 10/13/18 18:59 06:59 18:59 Intake Total 820 / 820 910 / 910 100 / 100 Output Total 800 / 800 Balance 820 / 820 110 / 110 100 / 100 Weight 55.8 kg Intake: IV 100 / 100 50 / 50 100 / 100 Zosyn 2.25 GM Premix 50 ML @ 100 / 100 50 / 50 100 / 100 100 mls/hr IV.SIG Q8H [facility] Rx#: [id number] Oral 720 / 720 860 / 860 Output: Urine 800 / 800 Other: # Voids 3 Date of Last Bowel Movement 10/10/18 10/13/18 10/13/18 # Bowel Movements 0 Narrative: GENERAL: Alert and oriented. SKIN: Warm and dry. NECK: Supple, trachea midline. No JVD. CARDIOVASCULAR: Regular rate and rhythm without murmurs, gallops, or rubs. Right IJ permacath RESPIRATORY: Breath sounds diminished equal bilaterally. No accessory muscle use. GASTROINTESTINAL: Abdomen soft, non-tender, nondistended. MUSCULOSKELETAL: No cyanosis, or edema. BACK: Nontender without obvious deformity. No CVA tenderness. <Marcy Gardner - Last Filed: 10/13/18 16:18> Vital signs: Intake & Output 10/14/18 10/15/18 10/15/18 18:59 06:59 18:59 Intake Total 50 / 50 Output Total 1999 Balance -1950 / -1950 Intake: IV 50 / 50 Zosyn 2.25 GM Premix 50 ML @ 50 / 50 100 mls/hr IV.SIG Q8H [facility] Rx#: [id number] Output: Hemodialysis Amount 1999 Other: Date of Last Bowel Movement 10/13/18 <Juan Green - Last Filed: 10/15/18 18:07> Assessment and Plan - Assessment (1) End-stage renal disease on hemodialysis Code(s): N18.6 - End stage renal disease; Z99.2 - Dependence on renal dialysis Status: Acute Plan: Hemodialysis on //Saturday Right IJ perma cath Epogen with dialysis, follow Hgb. HD planned for tomorrow will remove fluid as tolerated Discharge to SNF after HD (2) Anemia of renal disease Code(s): D63.1 - Anemia in chronic kidney disease Status: Acute Plan: HGB 8.3, on epogen with dialysis. Labs in AM (3) Pneumonia Code(s): J18.9 - Pneumonia, unspecified organism Status: Acute Qualifiers: Laterality: right Lung location: lower lobe of lung Plan: On antibiotics, reports shortness of breath has already improved with breathing treatments <Marcy Gardner - Last Filed: 10/13/18 16:18> - Assessment (1) End-stage renal disease on hemodialysis Code(s): N18.6 - End stage renal disease; Z99.2 - Dependence on renal dialysis Status: Acute Plan: Patient seen and examined, agree with above. HD will be in AM. Encourage oral intake. For discharge to SNF. (2) Anemia of renal disease Code(s): D63.1 - Anemia in chronic kidney disease Status: Acute (3) Pneumonia Code(s): J18.9 - Pneumonia, unspecified organism Status: Acute Qualifiers: Laterality: right Lung location: lower lobe of lung <Juan Green - Last Filed: 10/15/18 18:07>
[2018-10-13] MEDS: Latanoprost 0.005% Opth Drops 2.5 ML Bottle EACH EYE SCH (20:32)
[2018-10-14] MEDS: Senna/Docusate Sodium 8.6/50 MG Tablet PO SCH (08:16)
[2018-10-14] MEDS: guaiFENesin 600 MG ER Tablet PO SCH (08:16)
[2018-10-14] MEDS: predniSONE 10 MG Tablet PO SCH (08:17)
[2018-10-14] MEDS: Gabapentin 100 MG Capsule PO SCH (08:17)
[2018-10-14] MEDS: Pregabalin 25 MG Capsule PO SCH (08:17)
[2018-10-14] MEDS: Piperacil/Tazo 2.25 GM Premix 50 ML IV.SIG SCH (08:18)
[2018-10-14] MEDS: Brimonidine 0.15% Opth Drops 5 ML Bottle EACH EYE SCH (08:26)
[2018-10-14] MEDS: Budesonide-Formoterol 160/4.5 MCG 6 GM Inhaler INH SCH (08:26)
--- NOTE | 2018-10-14 09:13 | P.DS ---
Date of admission: 10/08/18 23:07 Primary care physician: Nishant Johnson DO Brief History from admission: 83-year-old male end-stage renal disease on dialysis Saturday , who presents emergency department for evaluation of several complaints. CXR in facility done yesterday showing PNA, he has also refused last dialysis treatment. He was hypotensive, and had elevated HR with shaking. He has had several admits over past few months, mostly relating to Missing dialysis treatments. DS: Diagnosis - Discharge Diagnosis (1) Pneumonia Status: Acute (2) End stage renal disease Status: Acute (3) COPD (chronic obstructive pulmonary disease) Status: Acute (4) Hypertension Status: Acute (5) Neuropathy Status: Acute (6) BPH loc w urin obs/LUTS Status: Acute DS: Summary Hospital Course: 83-year-old male end-stage renal disease on dialysis Saturday, who presents emergency department for evaluation of several complaints. CXR in facility done yesterday showing PNA, he has also refused last dialysis treatment.He was treated with Iv zosyn, bronchodilators, and oxygen supplement. He was seen by renal, he had dialysis in scheduled days. He is breathing better , afebrile. We will send home back o SNF, on iv zosyn for next 3 days. Will repeat CXR after treatment. He is at risk for readmission as he is not complaint with dialysis treatment. He decline hospice/ palitive care. - Time Spent with Patient Total time spent providing and/or coordinating discharge services: 40 Greater than 30 minutes - Quality: AMI Clinical Trial Participant: No - Quality: Stroke Symptom Onset Unknown: No - Quality: VTE Deep Vein Thrombosis/Pulmonary Embolism Present on Admission: No Exam Vital signs: Vital Signs 10/13/18 12:00 10/13/18 16:00 10/13/18 20:00 Temperature 98.0 F 97.5 F L 97.8 F Pulse Rate 85 123 H 84 Respiratory Rate 20 20 18 Blood Pressure 119/60 183/85 H 145/82 H Pulse Oximetry 97 95 99 10/13/18 20:06 10/13/18 23:39 10/14/18 00:00 Temperature 98 F Pulse Rate 82 90 Respiratory Rate 18 Blood Pressure 130/72 Pulse Oximetry 94 L 98 10/14/18 04:00 Temperature 98.8 F Pulse Rate 85 Respiratory Rate 16 Blood Pressure 90/54 L Pulse Oximetry 98 Intake & Output 10/13/18 10/14/18 10/14/18 18:59 06:59 18:59 Intake Total 580 / 580 530 / 530 Output Total 200 / 200 Balance 380 / 380 530 / 530 Weight 56.9 kg Intake: IV 100 / 100 50 / 50 Zosyn 2.25 GM Premix 50 ML @ 100 / 100 50 / 50 100 mls/hr IV.SIG Q8H [facility] Rx#: [id number] Oral 480 / 480 480 / 480 Output: Urine 200 / 200 Other: Date of Last Bowel Movement 10/13/18 10/13/18 # Bowel Movements 1 - Constitutional no acute distress - Routine HEENT Exam Eye: Present: PERRL ENT: Present: mucous membranes moist - Routine Respiratory Exam Present: rhonchi, diminished air movement - Routine Cardiovascular Exam Present: S1, S2 - Routine Abdominal Exam Present: soft, normoactive bowel sounds - Routine Skin Exam Present: dry, warm - Routine Neurological Exam Present: alert, oriented X3 Results Procedures completed during hospitalization: n/a Labs on day of discharge: Labs from last 24 hours 10/13/18 11:38 POC Glucose 177 H Laboratory Results - last 72 hr 10/13/18 10/13/18 10/13/18 05:45 05:45 11:38 WBC 8.9 RBC 2.84 L Hgb 8.3 L Hct 25.9 L MCV 91.1 MCH 29.2 MCHC 32.1 RDW 20.5 H Plt Count 223 MPV 8.3 Neut % (Auto) 71.8 H Lymph % (Auto) 11.1 [place] % (Auto) 13.3 H Eos % (Auto) 3.5 Baso % (Auto) 0.3 Neut # (Auto) 6.4 Lymph # (Auto) 1.0 [place] # (Auto) 1.2 H Eos # (Auto) 0.3 Baso # (Auto) 0.0 WBC Differential . Differential Comment Auto diff final Sodium 138 Potassium 4.6 Chloride 102 Carbon Dioxide 29.7 Anion Gap 6 BUN 58 H Creatinine 5.90 H Estimated GFR 11 L POC Glucose 177 H Random Glucose 94 Calcium 8.4 L Total Bilirubin 0.4 AST 8 L ALT 12 Alkaline Phosphatase 46 Total Protein 6.0 L D Albumin 2.1 L - Impressions ITS Impressions Chest X-Ray 10/08/18 19:56 CONCLUSION: Developing right lung infiltrates. Chest X-Ray 10/08/18 19:56 CONCLUSION: Developing right lung infiltrates. Discharge Plan - Discharge Disposition Patient Disposition: Discharge to SNF - Discharge Condition Condition: Good - Discharge Order Discharge Orders: Discharge Order (Routine); Ordered 10/14/18 Ordered By: Jocy Anguiano - Discharge Details Anticipated Discharge Date: 10/14/18 Discharge Comment: Dc to snf after Dialysis today - Physicians Team Primary Care Provider: Nishant Johnson Attending Provider: Nishant Johnson Other Providers: Juan Green MD
[2018-10-14 09:17] VITALS: BP 115/60; RESP 17; TEMP 97.8; O2SAT 96
[2018-10-14 11:43] VITALS: PULSE 96
== END 2018-10-14 14:11 ==
LOC: NEPC 18:00 → NEDA 23:07 → N04 10-09 01:11
PROVIDERS: ADMIT Family Medicine; ATTEND Family Medicine

== ENCOUNTER 2018-10-23 06:39 | Inpatient (IN) ==
[2018-10-23 07:47] LABS: Baso % (Auto) 0.5 % (0.0-2.0); Eos # (Auto) 0.2 th/mm3 (0.0-0.4); Eos % (Auto) 1.8 % (0.0-4.0); Hematocrit 30.5 % (39.0-51.0); Lymph # (Auto) 0.5 th/mm3 (1.0-4.8); Lymph % (Auto) 5.8 % (9.0-44.0); Mean Corpuscular HGB Conc 32.6 % (32.0-36.0); Mean Corpuscular Hemoglobin 29.6 pg (27.0-34.0); Mean Corpuscular Volume 90.9 fL (80.0-100.0); Mean Platelet Volume 7.7 fL (7.0-11.0); Mono # (Auto) 1.5 th/mm3 (0.0-0.9); Mono % (Auto) 16.3 % (0.0-8.0); Neut # (Auto) 6.9 th/mm3 (1.8-7.7); Neut % (Auto) 75.6 % (16.0-70.0); Platelet Count 325 th/mm3 (150-450); Red Blood Count 3.36 mil/mm3 (4.50-5.90); Red Cell Distribution Width 21.6 % (11.6-17.2); White Blood Count 9.2 th/mm3 (4.0-11.0)
--- NOTE | 2018-10-23 07:47 | XR ---
EXAM DATE: 10/23/2018 7:31 AM EST AGE/SEX: 83 years / Male INDICATIONS: Fever. CLINICAL DATA: This is the patient's initial encounter. Patient reports that signs and symptoms have been present for 1 day and indicates a pain score of 0/10. MEDICAL/SURGICAL HISTORY: Chronic obstructive pulmonary disease. Hypertension. Renal disease. . Dialysis Catheter COMPARISON: [facility], CHEST 1V SINGLE AP, 10/08/2018. . FINDINGS: Stable right IJ dialysis catheter in place. Persistent right-sided volume loss exaggerated by patient rotation. Persistent interstitial prominence throughout the right lung with improved airspace opacit ies in the right mid to lower lung zone. Cardiomediastinal contours are stable. Remainder of the exam is unchanged. CONCLUSION: 1. Airspace opacities in the right mid to lower lung zones have improved from prior exam. Differenti al considerations include resolving versus recurring pneumonia or aspiration. Electronically signed by: Ben Slater MD 10/23/2018 7:46 AM EST
--- NOTE | 2018-10-23 08:19 | ED ---
HPI General Chief complaint: Syncope Stated complaint: Medical Time Seen by Provider: 10/23/18 07:23 History of Present Illness HPI narrative: Patient is an 83-year-old male presents emergency department for evaluation of right-sided pain, decreased oxygen saturations and cough. He is end-stage renal disease on dialysis his last dialysis was 2 days ago he is due for dialysis today. He was recently admitted to the hospital for a pneumonia. EMS reported that his saturation is on 2 L nasal cannula was 88% prior to presentation here. Patient denies any cough congestion. Denies any fevers. States she is just having pain on the right side of his body. Is moderate, started today, associated signs and symptoms and context as above. Related Data Home Medications Medication Instructions Recorded Confirmed brimonidine [Alphagan P] 1 drp EACH EYE BID 09/16/18 10/23/18 [id number]-cytj 1 cap PO Q4H PRN 09/16/18 10/23/18 [Fioricet] latanoprost [Xalatan] 1 drp EACH EYE QPM 09/16/18 10/23/18 losartan 50 mg PO DAILY 09/16/18 10/23/18 pregabalin [Lyrica] 25 mg PO TID 09/16/18 10/23/18 tamsulosin 0.8 mg PO HS 09/16/18 10/23/18 doxepin 25 mg PO DAILY 10/08/18 10/23/18 acetaminophen 325 mg PO Q4H PRN 10/23/18 10/23/18 fluticasone-salmeterol [Advair 1 inh INHALATION BID 10/23/18 10/23/18 Diskus] guaifenesin 600 mg PO Q12H 10/23/18 10/23/18 magnesium hydroxide [Milk of 30 ml PO DAILY PRN 10/23/18 10/23/18 Magnesia] ondansetron HCl [Zofran] 4 mg PO TID PRN 10/23/18 10/23/18 vitamin B complex 1 tab PO DAILY 10/23/18 10/23/18 Previous Rx's Medication Instructions Recorded lorazepam 0.5 mg PO Q8H PRN tab 10/14/18 nitroglycerin [Nitrostat] 0.4 mg SUBLINGUAL Q5M PRN tab 10/14/18 oxycodone-acetaminophen 1 tab PO Q4H PRN tab 10/14/18 prednisone 5 mg PO DAILY #0 tab 10/14/18 Allergies Allergy/AdvReac Type Severity Reaction Status Date / Time No Known Allergies Allergy Verified 10/08/18 18:07 Review of Systems ROS: all other systems reviewed are negative [facility] Social History Social History Substance History: No History of Abuse Second Hand Smoke Exposure: No Smoking Status: Current every day smoker Tobacco Type: Cigarettes Packs Per Day: 2 Cigarettes Per Day: 40.0 Years Smoked: 40 Pack-Years: 80.00 years: 80 How Often Do You Have a Drink Containing Alcohol: Never Recent Travel in [facility] within the Last 8 Weeks: No Recent Out of Country Travel within the Last 8 Weeks: No Immunization History Tetanus Immunization: Unsure Exam Narrative Exam Narrative: GENERAL: Well-developed ill-appearing male SKIN: Clammy/hot. HEAD: Atraumatic. Normocephalic. EYES: Pupils equal and round. No scleral icterus. No injection or drainage. ENT: No nasal bleeding or discharge. Mucous membranes pink and moist. NECK: Trachea midline. No JVD. CARDIOVASCULAR: Regular rhythm with tachycardia. No murmur appreciated. RESPIRATORY: No accessory muscle use. Clear to auscultation. Breath sounds equal bilaterally. GASTROINTESTINAL: Abdomen soft, non-tender, nondistended. Hepatic and splenic margins not palpable. MUSCULOSKELETAL: No obvious deformities. No clubbing. No cyanosis. No edema. NEUROLOGICAL: Awake and alert. No obvious cranial nerve deficits. Motor grossly within normal limits. Normal speech. PSYCHIATRIC: Appropriate mood and affect; insight and judgment normal. Course Initial Documented Vital Signs Temperature 99.6 F 10/23/18 06:43 Pulse Oximetry 98 10/23/18 06:43 Last Documented Vital Signs Temperature 99.6 F 10/23/18 06:55 Pulse Rate 118 H 10/23/18 07:53 Respiratory Rate 15 10/23/18 06:55 Blood Pressure 139/81 10/23/18 06:55 Pulse Oximetry 97 10/23/18 07:53 Medical Decision Making MDM Narrative Medical decision making narrative: Patient room to the emergency department, he does appear somewhat under the weather, clammy, CT scan with IV contrast performed showing no pulmonary embolism patient does have areas of atelectasis consolidation of both the upper and lower lobe of the right lung. White count is actually normal but the patient with his decreased saturation and difficulty to arouse prior to arrival suggested this is a significant pneumonia. I started him on vancomycin and Zosyn and discussed the patient with Dr. Johnson' s AXEL Sandra and agreed for admission With the patient's fever prior to arrival and tachycardia the patient does meet Sirs criteria. Lactic acid normal and with his renal failure aggressive fluid resuscitation is contraindicated. Patient was given 500 cc of fluid, started vancomycin and Zosyn. His creatinine is elevated 8.24 with BUN of 85 which is up from his baseline of 5. Patient did receive IV contrast here in the emergency department will need to be dialyzed within the next 24 hours. He is due for dialysis routinely today. Medical Screen Exam Complete: Yes Emergency Medical Condition: Yes Lab Data Result diagrams: 10/23/18 07:20 10/23/18 08:30 Lab Results 10/23/18 10/23/18 10/23/18 Range/Units 07:20 07:30 07:40 WBC 9.2 (4.0-11.0) th/mm3 RBC 3.36 L (4.50-5.90) mil/mm3 Hgb 10.0 L (13.0-17.0) gm/dL Hct 30.5 L (39.0-51.0) % MCV 90.9 (80.0-100.0) fL MCH 29.6 (27.0-34.0) pg MCHC 32.6 (32.0-36.0) % RDW 21.6 H (11.6-17.2) % Plt Count 325 D (150-450) th/mm3 MPV 7.7 (7.0-11.0) fL Prelim Diff (Auto) Slide review pending Neut % (Auto) 75.6 H (16.0-70.0) % Lymph % (Auto) 5.8 L (9.0-44.0) % [place] % (Auto) 16.3 H (0.0-8.0) % Eos % (Auto) 1.8 (0.0-4.0) % Baso % (Auto) 0.5 (0.0-2.0) % Neut # (Auto) 6.9 (1.8-7.7) th/mm3 Lymph # (Auto) 0.5 L (1.0-4.8) th/mm3 [place] # (Auto) 1.5 H (0.0-0.9) th/mm3 Eos # (Auto) 0.2 (0.0-0.4) th/mm3 Baso # (Auto) 0.0 (0.0-0.2) th/mm3 WBC Differential Manual diff final Seg Neuts % (Manual) 73 H (16-70) % Lymphocytes % (Manual) 4 L (9-44) % Monocytes % (Manual) 18 H (0-8) % Eosinophils % (Manual) 3 (0-4) % Basophils % (Manual) 1 (0-2) % Myelocytes % (Man) 1 H (0-0) % Abs Neuts (Manual) 6.8 (1.8-7.7) th/mm3 Differential Comment . Platelet Estimate Normal (Normal) Platelet Morphology Normal (Normal) Ovalocytes 1+ H (None) Puncture Site Patient Temperature O2 Saturation (90-100) % ABG pH (7.380-7.420) ABG pCO2 (38-42) mmHg ABG pO2 (61-120) mmHg ABG HCO3 (22-26) mmol/L ABG O2 Content (12.0-20.0) Vol % ABG Base Excess (-2-2) mmol/L ABG Methemoglobin (0-2) % Onel Test Hemoglobin (12.0-16.0) G/DL Carboxyhemoglobin (0-4) % O2 Delivery Device Liter Flow L/M Critical Value Sodium (136-145) meq/L Potassium (3.5-5.1) meq/L Chloride (98-107) meq/L Carbon Dioxide (21.0-32.0) meq/L Anion Gap (5-15) meq/L BUN (7-18) mg/dL Creatinine (0.60-1.30) mg/dL Estimated GFR (>89) mL/min POC Glucose (68-110) mg/dl Random Glucose (74-106) mg/dL Lactic Acid 0.9 (0.4-2.0) mmol/L Calcium (8.5-10.1) mg/dL Magnesium (1.5-2.5) mg/dL AST (15-37) U/L ALT (12-78) U/L Albumin (3.4-5.0) g/dL Urine Color Yellow (Yellw/Straw) Urine Clarity Clear (Clear) Urine pH 6.0 (5.0-8.5) Ur Specific Comfort 1.011 (1.002-1.035) Urine Protein 30 H (Neg-Trace) mg/dL Urine Glucose (UA) Negative (Negative) mg/dL Urine Ketones Negative (Negative) mg/dL Urine Occult Blood Negative (Negative) Urine Nitrate Negative (Negative) Urine Bilirubin Negative (Negative) Urine Urobilinogen Less than 2 (Less than 2) mg/dL Ur Leukocyte Esterase Negative (Negative) Urine RBC Less than 1 (0-3) /hpf Urine WBC 1 (0-5) /hpf Ur Squamous Epith Cells <1 (0-5) /hpf Micro UA Comment Culture not ind Ur Microscopic Review Not Reportable Urine Culture Comments Culture not ind 10/23/18 10/23/18 10/23/18 Range/Units 08:03 08:30 09:04 WBC (4.0-11.0) th/mm3 RBC (4.50-5.90) mil/mm3 Hgb (13.0-17.0) gm/dL Hct (39.0-51.0) % MCV (80.0-100.0) fL MCH (27.0-34.0) pg MCHC (32.0-36.0) % RDW (11.6-17.2) % Plt Count (150-450) th/mm3 MPV (7.0-11.0) fL Prelim Diff (Auto) Neut % (Auto) (16.0-70.0) % Lymph % (Auto) (9.0-44.0) % [place] % (Auto) (0.0-8.0) % Eos % (Auto) (0.0-4.0) % Baso % (Auto) (0.0-2.0) % Neut # (Auto) (1.8-7.7) th/mm3 Lymph # (Auto) (1.0-4.8) th/mm3 [place] # (Auto) (0.0-0.9) th/mm3 Eos # (Auto) (0.0-0.4) th/mm3 Baso # (Auto) (0.0-0.2) th/mm3 WBC Differential Seg Neuts % (Manual) (16-70) % Lymphocytes % (Manual) (9-44) % Monocytes % (Manual) (0-8) % Eosinophils % (Manual) (0-4) % Basophils % (Manual) (0-2) % Myelocytes % (Man) (0-0) % Abs Neuts (Manual) (1.8-7.7) th/mm3 Differential Comment Platelet Estimate (Normal) Platelet Morphology (Normal) Ovalocytes (None) Puncture Site Right radial Patient Temperature 98.6 O2 Saturation 94 (90-100) % ABG pH 7.32 L (7.380-7.420) ABG pCO2 47 H (38-42) mmHg ABG pO2 88 (61-120) mmHg ABG HCO3 23 (22-26) mmol/L ABG O2 Content 11.5 L (12.0-20.0) Vol % ABG Base Excess -2.1 L (-2-2) mmol/L ABG Methemoglobin 0.7 (0-2) % Onel Test Present Hemoglobin 8.6 L (12.0-16.0) G/DL Carboxyhemoglobin 1.8 (0-4) % O2 Delivery Device Nasal cannula Liter Flow 4.00 L/M Critical Value No Sodium 140 (136-145) meq/L Potassium 5.8 H (3.5-5.1) meq/L Chloride 109 H (98-107) meq/L Carbon Dioxide 22.1 (21.0-32.0) meq/L Anion Gap 9 (5-15) meq/L BUN 85 H (7-18) mg/dL Creatinine 8.24 H (0.60-1.30) mg/dL Estimated GFR 8 L (>89) mL/min POC Glucose 120 H (68-110) mg/dl Random Glucose 105 (74-106) mg/dL Lactic Acid (0.4-2.0) mmol/L Calcium 8.5 (8.5-10.1) mg/dL Magnesium 2.2 (1.5-2.5) mg/dL AST 25 (15-37) U/L ALT 10 L (12-78) U/L Albumin 1.9 L (3.4-5.0) g/dL Urine Color (Yellw/Straw) Urine Clarity (Clear) Urine pH (5.0-8.5) Ur Specific Comfort (1.002-1.035) Urine Protein (Neg-Trace) mg/dL Urine Glucose (UA) (Negative) mg/dL Urine Ketones (Negative) mg/dL Urine Occult Blood (Negative) Urine Nitrate (Negative) Urine Bilirubin (Negative) Urine Urobilinogen (Less than 2) mg/dL Ur Leukocyte Esterase (Negative) Urine RBC (0-3) /hpf Urine WBC (0-5) /hpf Ur Squamous Epith Cells (0-5) /hpf Micro UA Comment Ur Microscopic Review Urine Culture Comments Imaging Data Radiologist's impression: Chest X-Ray 10/23/18 07:14 CONCLUSION: 1. Airspace opacities in the right mid to lower lung zones have improved from prior exam. Differential considerations include resolving versus recurring pneumonia or aspiration. Chest CTA 10/23/18 07:53 CONCLUSION: 1. No evidence of pulmonary emboli 2. Enlarging left upper lobe pulmonary nodule characteristic of malignancy. 3. Consolidating airspace disease in the right upper and lower lobes Discharge Plan Discharge Order Discharge Orders: ED Use Only Admit Order (Routine); Ordered 10/23/18 Ordered By: Hubert Aldana Physicians Team ED Provider: Hubert Aldana Primary Care Provider: UNKNOWN, Other Providers: [facility],Agency Rxs /Orders / Referrals /Forms Prescriptions: No Action doxepin 25 mg Capsule 25 mg PO DAILY RF: 0 oxycodone-acetaminophen 5-325 mg Tablet 1 tab PO Q4H PRN (Reason: Acute Pain) RF: 0 lorazepam 0.5 mg Tablet 0.5 mg PO Q8H PRN (Reason: Anxiety) RF: 0 nitroglycerin [Nitrostat] 0.4 mg Tablet, Sublingual 0.4 mg Sublingual Q5M PRN (Reason: Chest Pain) RF: 0 prednisone 10 mg Tablet 5 mg PO DAILY Qty: 0 RF: 0 fluticasone-salmeterol [Advair Diskus] 250-50 mcg/dose Blister With Device 1 inh INHALATION BID RF: 0 acetaminophen 325 mg Tablet 325 mg PO Q4H PRN (Reason: Pain) RF: 0 ondansetron HCl [Zofran] 4 mg Tablet 4 mg PO TID PRN (Reason: Nausea) RF: 0 magnesium hydroxide [Milk of Magnesia] 400 mg/5 mL Suspension 30 ml PO DAILY PRN (Reason: Constipation) RF: 0 vitamin B complex Tablet 1 tab PO DAILY RF: 0 guaifenesin 600 mg Tablet Extended Release 12hr 600 mg PO Q12H RF: 0 losartan 50 mg Tablet 50 mg PO DAILY RF: 0 latanoprost [Xalatan] 0.005 % Drops 1 drp EACH EYE QPM RF: 0 pregabalin [Lyrica] 25 mg Capsule 25 mg PO TID RF: 0 brimonidine [Alphagan P] 0.1 % Drops 1 drp EACH EYE BID RF: 0 fxcnqoelxm-fxuotxqyzihtm-phcy [Fioricet] 50-300-40 mg Capsule 1 cap PO Q4H PRN (Reason: Headache) RF: 0 tamsulosin 0.4 mg capsule 0.8 mg PO HS RF: 0 Discharge Interventions Interventions: Vital Signs Last Done: 10/23/18 06:55 Status ED Status: Admitted Patient
--- NOTE | 2018-10-23 08:34 | CT ---
EXAM DATE: 10/23/2018 8:24 AM EST AGE/SEX: 83 years / Male INDICATIONS: Dyspnea. CLINICAL DATA: This is the patient's initial encounter. Patient reports that signs and symptoms have been present for 1 day and indicates a pain score of 0/10. MEDICAL/SURGICAL HISTORY: Hypertension. Anemia. Chronic obstructive pulmonary disease. End Stage Renal Disease. None. RADIATION DOSE: 11.03 CTDI (mGy) COMPARISON: [facility], CT CHEST W/O CONTRAST, 07/24/2018. . TECHNIQUE: Volumetric scanning was performed using a multi-row detector CT scanner during bolus infu aniya of 75 ml Omnipaque 350 (iohexol) nonionic water-soluble contrast as a single exam dose. The hebert a was post processed with a variety of visualization algorithms including full volume maximum intensi ty projection and sliding thin slab reformation. Using automated exposure control and adjustment of t he mA and/or kV according to patient size, radiation dose was kept as low as reasonably achievable to obtain optimal diagnostic quality images. DICOM format image data is available electronically for r eview and comparison. FINDINGS: Pulmonary Arteries: No filling defects are seen in the pulmonary arteries out to the subsegmental ve ssels. The left and right pulmonary arteries are normal in diameter. Lung: Right upper lobe pulmonary nodule has significantly increased in size and now measures 1.4 cm. Subsegmental airspace disease is seen posteriorly in the right upper lobe. Segmental airspace disease with significant consolidation is identified in the right lower lobe. Effusion: None. Mediastinum: No evidence of mediastinal or hilar adenopathy. Other: The axilla is unremarkable. CONCLUSION: 1. No evidence of pulmonary emboli 2. Enlarging left upper lobe pulmonary nodule characteristic of malignancy. 3. Consolidating airspace disease in the right upper and lower lobes Electronically signed by: Gabe Andujar MD 10/23/2018 8:33 AM EST
[2018-10-23] MEDS ORDERED: Piperacil/Tazo 4.5 GM Premix 4.5 GM/100 ML BAG IV.SIG ONE (08:35)
[2018-10-23] MEDS ORDERED: Vancomycin Inj 1,000 MG in Sodium Chlor 0.9% Inj 250 ML IV.SIG ONE (08:35)
[2018-10-23 08:40] LABS: Eosinophils 3 % (0-4); Lymphocytes 4 % (9-44); Monocytes 18 % (0-8); Myelocytes 1 % (0-0); Platelet Estimate Normal (Normal); Platelet Morphology Normal (Normal)
[2018-10-23 08:41] LABS: Ovalocytes 1+
[2018-10-23 09:07] LABS: Bilirubin,Urine Negative (Negative); Clarity,Urine Clear (Clear); Color,Urine Yellow (Yellw/Straw); Glucose,Urine (UA) Negative (Negative); Leukocyte Esterase,Urine Negative (Negative); Nitrite,Urine Negative (Negative); Specific Gravity,Urine 1.011 (1.002-1.035); Squamous Epithelial Cell,Urine <1 /hpf (0-5)
[2018-10-23 09:16] LABS: ABG Base Excess -2.1 mmol/L (-2-2); ABG PCO2 47 mmHg (38-42); ABG PO2 88 mmHg (61-120)
[2018-10-23 09:23] LABS: Alanine Aminotransferase 10 U/L (12-78)
[2018-10-23 09:34] LABS: Albumin 1.9 g/dL (3.4-5.0); Aspartate Aminotransferase 25 U/L (15-37); Blood Urea Nitrogen 85 mg/dL (7-18); Calcium 8.5 mg/dL (8.5-10.1); Carbon Dioxide 22.1 meq/L (21.0-32.0); Glomerular Filtration Rate 8 mL/min (>89); Glucose,Random 105 mg/dL (74-106); Magnesium 2.2 mg/dL (1.5-2.5)
[2018-10-23 09:42] LABS: Anion Gap 9 meq/L (5-15); Chloride 109 meq/L (98-107); Potassium 5.8 meq/L (3.5-5.1); Sodium 140 meq/L (136-145)
[2018-10-23 10:10] LABS: Alkaline Phosphatase 49 U/L (45-117); Total Protein 6.7 g/dL (6.4-8.2)
[2018-10-23] MEDS ORDERED: Bisacodyl 10 MG Supp RECTAL PRN (10:29)
[2018-10-23] MEDS ORDERED: Nitroglycerin SL (Override) 0.4 MG Tab SL PRN (10:32)
[2018-10-23] MEDS ORDERED: Gelatin 12 MM/7 MM Topical Foam TOPICAL PRN (10:54)
[2018-10-23] MEDS ORDERED: Heparin 10,000 UNITS/10 ML Vial (for IV use) OTHER PRN (10:54)
[2018-10-23] MEDS: guaiFENesin 600 MG ER Tablet PO SCH ×2 (10:54→23:27)
[2018-10-23] MEDS ORDERED: Sod Chloride 0.9% Inj 1,000 ML OTHER PRN ×2 (10:54)
[2018-10-23] MEDS ORDERED: Sod Chloride 0.9% Inj 1,000 ML IV.CONT PRN (10:54)
[2018-10-23] MEDS ORDERED: Acetaminophen 325 MG Tablet PO PRN (10:54)
[2018-10-23] MEDS ORDERED: Albumin Human 25% Inj 100 ML IV.SIG PRN (10:54)
[2018-10-23] MEDS ORDERED: Sodium Chlor 0.9% Inj 500 ML IV.SIG SCH (11:00)
[2018-10-23] MEDS: Pregabalin 25 MG Capsule PO SCH ×2 (13:25→18:21)
--- NOTE | 2018-10-23 13:26 | P.CONNP ---
<Marcy Gardner - Last Filed: 10/23/18 13:56> History of Present Illness Service: Nephrology Consult date: 10/23/18 Requesting Physician: Jocy Anguiano Reason for Consult: End stage renal disease on hemodialysis Primary Care Provider: UNKNOWN History of Present Illness: Patient is an 83-year-old male presents emergency department for evaluation of right-sided pain, decreased oxygen saturations and cough. Chest xray with airspace opacities in the right mid to lower lung zones have improved from prior exam. Differential considerations include resolving versus recurring pneumonia or aspiration. Nephrology is consulted for management of end-stage renal disease on hemodialysis. Has right IJ permacath. Needs AVf. Patient last dialysis was on Saturday and missed last Saturday secondary to increased weakness. Orders have been placed for dialysis today. Patient reports generalized weakness, shortness of breath, cough, and nausea. 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, Drag Seiner / EMT - Medical History Medical History: Medical History (Last Reviewed 10/08/18 @ 18:06 by Lety Reis) BPH loc w urin obs/LUTS (Acute) COPD (chronic obstructive pulmonary disease) (Acute) Hypertension (Acute) Anemia Degenerative disc disease ESRD (end stage renal disease) on dialysis GERD (gastroesophageal reflux disease) History of alcohol dependence History of squamous cell carcinoma - Surgical History Surgical History: Surgical History (Last Reviewed 10/08/18 @ 18:06 by Lety Reis) H/O hernia repair - Family History Family History: Family History (Last Reviewed 09/17/18 @ 09:10 by JENNIE Dang) Other Family history of cancer - Tobacco History Second Hand Smoke Exposure: No Tobacco Use In Past 30 Days: Yes Smoking Status: Current every day smoker Tobacco Type: Cigarettes Packs Per Day: 2 Cigarettes Per Day: 40 Years Smoked: 40 years: 80 - Alcohol History How Often Do You Have a Drink Containing Alcohol: Never - Substance Use History Substance History: No History of Abuse - Travel History Recent Travel in the [place] Within the Last 8 Weeks: No Recent Travel Out of the Country Within the Last 8 Weeks: No - Immunization History Tetanus Immunization: Unsure Medications and Allergies Allergies Allergy/AdvReac Type Severity Reaction Status Date / Time No Known Allergies Allergy Verified 10/08/18 18:07 Home Medications Medication Instructions Recorded Confirmed Type brimonidine [Alphagan P] 1 drp EACH EYE BID 09/16/18 10/23/18 History beqoggzyrd-[id number]-[id number] 1 cap PO Q4H PRN 09/16/18 10/23/18 History [Fioricet] latanoprost [Xalatan] 1 drp EACH EYE QPM 09/16/18 10/23/18 History losartan 50 mg PO DAILY 09/16/18 10/23/18 History pregabalin [Lyrica] 25 mg PO TID 09/16/18 10/23/18 History tamsulosin 0.8 mg PO HS 09/16/18 10/23/18 History doxepin 25 mg PO DAILY 10/08/18 10/23/18 History acetaminophen 325 mg PO Q4H PRN 10/23/18 10/23/18 History fluticasone-salmeterol [Advair 1 inh INHALATION BID 10/23/18 10/23/18 History Diskus] guaifenesin 600 mg PO Q12H 10/23/18 10/23/18 History magnesium hydroxide [Milk of 30 ml PO DAILY PRN 10/23/18 10/23/18 History Magnesia] ondansetron HCl [Zofran] 4 mg PO TID PRN 10/23/18 10/23/18 History vitamin B complex 1 tab PO DAILY 10/23/18 10/23/18 History Active Medications: Active Medications Acetaminophen (Tylenol) 650 mg PO Q4H PRN PRN Reason: Temp > 100.4 Acetaminophen (Tylenol) 650 mg PO UNSCH PRN PRN Reason: SEE LABEL COMMENTS Al Hydroxide/Mg Hydroxide (Milk Of Magnesia Liq) 30 ml PO Q12H PRN PRN Reason: Mild Constipation Bisacodyl (Dulcolax Supp) 10 mg RECTAL DAILY PRN PRN Reason: SEVERE CONSITIPATION Clonidine HCl (Catapres) 0.1 mg PO UNSCH PRN PRN Reason: SEE LABEL COMMENTS Diphenhydramine HCl (Benadryl) 25 mg PO UNSCH PRN PRN Reason: SEE LABEL COMMENTS Doxepin HCl (Sinequan) 25 mg PO DAILY [facility] Epoetin González (Epogen Inj) 4,000 unit IV.PUSH UNSCH PRN PRN Reason: SEE LABEL COMMENTS Gelatin (Gelfoam 12 Mm/7 Mm Topical) 1 foam TOPICAL PRN PRN PRN Reason: help stop bleeding from site Gentamicin Sulfate (Gentamicin Inj) 20 mg OTHER WITH DIALYSIS PRN PRN Reason: Dwell Gentamycin Lock Guaifenesin (Mucinex Er) 600 mg PO Q12H [facility] Last Admin: 10/23/18 10:54 Dose: Not Given Heparin Sodium (Porcine) (Heparin Inj) 8,000 units OTHER WITH DIALYSIS PRN PRN Reason: for machine prime Heparin Sodium (Porcine) (Heparin Inj) 1,000 units OTHER WITH DIALYSIS PRN PRN Reason: Dwell Heparin to Fill Catheter Albumin Human (Flexbumin 25% Inj) 100 mls @ 60 mls/hr IV.SIG WITH DIALYSIS PRN PRN Reason: hypotension / volume replace Sodium Chloride (Ns Inj) 1,000 mls @ 0 mls/hr OTHER .Q0M PRN PRN Reason: for prime and rinse back Sodium Chloride (Ns Inj) 1,000 mls @ 200 mls/hr OTHER .Q5H PRN PRN Reason: for dialyzer flush PRN Sodium Chloride (Ns Inj) 1,000 mls @ 0 mls/hr IV.CONT .Q0M PRN PRN Reason: hypotension / volume replace Lactulose (Lactulose Liq) 30 ml PO DAILY PRN PRN Reason: SEVERE CONSITIPATION Latanoprost (Xalatan 0.005% Opth Drops) drop EACH EYE QPM [facility] Lorazepam (Ativan) 0.5 mg PO Q8H PRN PRN Reason: Anxiety Losartan Potassium (Cozaar) 50 mg PO DAILY [facility] Mannitol (Mannitol Inj) 12.5 gm IV.PUSH UNSCH PRN PRN Reason: hypotension / volume replace Nitroglycerin (Nitrostat Sl (Override)) 0.4 mg SL Q5M PRN PRN Reason: Chest Pain Nitroglycerin (Nitrostat Sl) 0.4 mg SL Q5M PRN PRN Reason: CHEST PAIN Non-Formulary Medication (Brimonidine [Alphagan P]) 1 drp EACH EYE BID [facility] Non-Formulary Medication (Fluticasone-Salmeterol [Advair Diskus]) 1 inh INHALATION BID [facility] Non-Formulary Medication (Ondansetron Hcl [Zofran]) 4 mg PO TID PRN PRN Reason: Nausea Ondansetron HCl (Zofran Inj) 4 mg IV.PUSH Q6H PRN PRN Reason: NAUSEA OR VOMITING Ondansetron HCl (Zofran Inj) 4 mg IV.PUSH UNSCH PRN PRN Reason: NAUSEA OR VOMITING Oxycodone/Acetaminophen (Percocet 5/325 Mg) 1 tab PO Q4H PRN PRN Reason: PAIN 1-10 Prednisone (Deltasone) 5 mg PO DAILY [facility] Pregabalin (Lyrica) 25 mg PO TID [facility] Senna/Docusate Sodium (Denise-Colace) 1 tab PO BID [facility] Sennosides (Senokot) 17.2 mg PO Q12H PRN PRN Reason: Moderate Constipation Sodium Chloride (Ns Flush) 2 ml IV.FLUSH BID [facility] Sodium Chloride (Ns Flush) 2 ml IV.FLUSH PRN PRN PRN Reason: FLUSH AFTER USING IV ACCESS Sodium Chloride (Ns Flush) 5 ml IV.FLUSH PRN PRN PRN Reason: flush each lumen during HD Tamsulosin HCl (Flomax) 0.8 mg PO HS [facility] Vitamin B Complex/Vit C/Folic Acid (Nephrocaps) 1 tab PO DAILY [facility] Exam Vital signs: Vital Signs 10/23/18 06:43 10/23/18 06:55 10/23/18 07:53 Temperature 99.6 F 99.6 F Pulse Rate 117 H 118 H Respiratory Rate 15 Blood Pressure 139/81 Pulse Oximetry 98 97 97 10/23/18 10:44 10/23/18 10:54 Temperature 99.1 F Pulse Rate 127 H 108 H Respiratory Rate 18 Blood Pressure 110/53 L Pulse Oximetry 95 Intake & Output 10/22/18 10/23/18 10/23/18 18:59 06:59 18:59 Intake Total 850 / 850 Balance 850 / 850 Weight 56.699 kg Intake: IV 850 / 850 Zosyn 4.5 GM Premix 4.5 gm In 100 / 100 100 ml @ 200 mls/hr IV.SIG ONCE ONE Rx#:[id number] NS Inj 500 ML @ 1000 mls/hr IV. 500 / 500 SIG BOLUS [facility] Rx#:[id number] Vancomycin Inj 1,000 MG In NS 250 / 250 Inj 250 ML @ 250 mls/hr IV.SIG ONCE ONE Rx#:[id number] Narrative: GENERAL: Lethargic, responds to questions weakly. SKIN: Warm and dry. NECK: Supple, trachea midline. No JVD. CARDIOVASCULAR: Regular rate and rhythm without murmurs, gallops, or rubs. Right IJ permacath. RESPIRATORY: Breath sounds diminished bilaterally. No accessory muscle use. GASTROINTESTINAL: Abdomen soft, non-tender, nondistended. MUSCULOSKELETAL: No cyanosis, or edema. BACK: Nontender without obvious deformity. No CVA tenderness. Results - Lab Results 10/23/18 07:20 10/23/18 08:30 Most recent lab results ABG pH 7.32 (7.380-7.420) L 10/23/18 09:04 ABG pCO2 47 mmHg (38-42) H 10/23/18 09:04 ABG pO2 88 mmHg (61-120) 10/23/18 09:04 ABG HCO3 23 mmol/L (22-26) 10/23/18 09:04 Calcium 8.5 mg/dL (8.5-10.1) 10/23/18 08:30 Magnesium 2.2 mg/dL (1.5-2.5) 10/23/18 08:30 Assessment and Plan - Assessment (1) End-stage renal disease on hemodialysis Code(s): N18.6 - End stage renal disease; Z99.2 - Dependence on renal dialysis Status: Acute Plan: End stage renal disease on hemodialysis on Saturday, , and Saturday Last hemodialysis on Saturday Right IJ permacath Avoid IVF administration Avoid gadolinium Hyperkalemia, expect improvement after dialysis. K bath adjusted. Hemodialysis today, 2 K bath, will remove fluid as tolerated. (2) Pneumonia Code(s): J18.9 - Pneumonia, unspecified organism Status: Acute Plan: On antibiotics. Continues to have shortness of breath. (3) COPD (chronic obstructive pulmonary disease) Code(s): J44.9 - Chronic obstructive pulmonary disease, unspecified Status: Acute Plan: On breathing treatment. (4) Hypertension Code(s): I10 - Essential (primary) hypertension Status: Acute Plan: Well controlled. <Juan Green - Last Filed: 10/23/18 21:21> History of Present Illness Primary Care Provider: UNKNOWN [facility] - Medical History Medical History: Medical History (Last Reviewed 10/08/18 @ 18:06 by Lety Reis) BPH loc w urin obs/LUTS (Acute) COPD (chronic obstructive pulmonary disease) (Acute) Hypertension (Acute) Anemia Degenerative disc disease ESRD (end stage renal disease) on dialysis GERD (gastroesophageal reflux disease) History of alcohol dependence History of squamous cell carcinoma - Surgical History Surgical History: Surgical History (Last Reviewed 10/08/18 @ 18:06 by Lety Reis) H/O hernia repair - Family History Family History: Family History (Last Reviewed 09/17/18 @ 09:10 by JENNIE Dang) Other Family history of cancer Medications and Allergies Active Medications: Active Medications Acetaminophen (Tylenol) 650 mg PO Q4H PRN PRN Reason: Temp > 100.4 Acetaminophen (Tylenol) 650 mg PO UNSCH PRN PRN Reason: SEE LABEL COMMENTS Al Hydroxide/Mg Hydroxide (Milk Of Luke Garcia) 30 ml PO Q12H PRN PRN Reason: Mild Constipation Albuterol (Duoneb Neb (Lashae)) 1 ampul NEB Q6HR NEB [facility] Bisacodyl (Dulcolax Supp) 10 mg RECTAL DAILY PRN PRN Reason: SEVERE CONSITIPATION Budesonide/Formoterol Fumarate (Symbicort 160/4.5 Mcg Inh) 2 puff INH BID [facility] Clonidine HCl (Catapres) 0.1 mg PO UNSCH PRN PRN Reason: SEE LABEL COMMENTS Diphenhydramine HCl (Benadryl) 25 mg PO UNSCH PRN PRN Reason: SEE LABEL COMMENTS Doxepin HCl (Sinequan) 25 mg PO DAILY [facility] Epoetin González (Epogen Inj) 4,000 unit IV.PUSH UNSCH PRN PRN Reason: SEE LABEL COMMENTS Gelatin (Gelfoam 12 Mm/7 Mm Topical) 1 foam TOPICAL PRN PRN PRN Reason: help stop bleeding from site Gentamicin Sulfate (Gentamicin Inj) 20 mg OTHER WITH DIALYSIS PRN PRN Reason: Dwell Gentamycin Lock Last Admin: 10/23/18 17:25 Dose: 20 mg Guaifenesin (Mucinex Er) 600 mg PO Q12H [facility] Last Admin: 10/23/18 10:54 Dose: Not Given Heparin Sodium (Porcine) (Heparin Inj) 8,000 units OTHER WITH DIALYSIS PRN PRN Reason: for machine prime Heparin Sodium (Porcine) (Heparin Inj) 1,000 units OTHER WITH DIALYSIS PRN PRN Reason: Dwell Heparin to Fill Catheter Albumin Human (Flexbumin 25% Inj) 100 mls @ 60 mls/hr IV.SIG WITH DIALYSIS PRN PRN Reason: hypotension / volume replace Last Infusion: 10/23/18 15:40 Dose: Infused Sodium Chloride (Ns Inj) 1,000 mls @ 0 mls/hr OTHER .Q0M PRN PRN Reason: for prime and rinse back Sodium Chloride (Ns Inj) 1,000 mls @ 200 mls/hr OTHER .Q5H PRN PRN Reason: for dialyzer flush PRN Sodium Chloride (Ns Inj) 1,000 mls @ 0 mls/hr IV.CONT .Q0M PRN PRN Reason: hypotension / volume replace Ceftriaxone Sodium 1,000 mg/ (Sodium Chloride) 100 mls @ 200 mls/hr IV.SIG Q24H [facility] Lactulose (Lactulose Liq) 30 ml PO DAILY PRN PRN Reason: SEVERE CONSITIPATION Latanoprost (Xalatan 0.005% Opth Drops) 1 drop EACH EYE QPM [facility] Last Admin: 10/23/18 18:21 Dose: Not Given Lorazepam (Ativan) 0.5 mg PO Q8H PRN PRN Reason: Anxiety Losartan Potassium (Cozaar) 50 mg PO DAILY [facility] Mannitol (Mannitol Inj) 12.5 gm IV.PUSH UNSCH PRN PRN Reason: hypotension / volume replace Nitroglycerin (Nitrostat Sl (Override)) 0.4 mg SL Q5M PRN PRN Reason: Chest Pain Nitroglycerin (Nitrostat Sl) 0.4 mg SL Q5M PRN PRN Reason: CHEST PAIN Ondansetron HCl (Zofran Inj) 4 mg IV.PUSH Q6H PRN PRN Reason: NAUSEA OR VOMITING Ondansetron HCl (Zofran Odt) 4 mg PO TID PRN PRN Reason: NAUSEA Ondansetron HCl (Zofran Inj) 4 mg IV.PUSH UNSCH PRN PRN Reason: NAUSEA OR VOMITING Oxycodone/Acetaminophen (Percocet 5/325 Mg) 1 tab PO Q4H PRN PRN Reason: PAIN 1-10 Pt Own Med:( Brimonidine [ Alphagan P] 1 Drp) 0 each EACH EYE BID [facility] Prednisone (Deltasone) 5 mg PO DAILY [facility] Pregabalin (Lyrica) 25 mg PO TID [facility] Last Admin: 10/23/18 18:21 Dose: Not Given Senna/Docusate Sodium (Denise-Colace) 1 tab PO BID [facility] Sennosides (Senokot) 17.2 mg PO Q12H PRN PRN Reason: Moderate Constipation Sodium Chloride (Ns Flush) 2 ml IV.FLUSH BID [facility] Sodium Chloride (Ns Flush) 2 ml IV.FLUSH PRN PRN PRN Reason: FLUSH AFTER USING IV ACCESS Sodium Chloride (Ns Flush) 5 ml IV.FLUSH PRN PRN PRN Reason: flush each lumen during HD Tamsulosin HCl (Flomax) 0.8 mg PO HS [facility] Vitamin B Complex/Vit C/Folic Acid (Nephrocaps) 1 tab PO DAILY [facility] Exam Vital signs: Vital Signs 10/23/18 06:43 10/23/18 06:55 10/23/18 07:53 Temperature 99.6 F 99.6 F Pulse Rate 117 H 118 H Respiratory Rate 15 Blood Pressure 139/81 Pulse Oximetry 98 97 97 10/23/18 10:44 10/23/18 10:54 10/23/18 21:08 Temperature 99.1 F Pulse Rate 127 H 108 H 119 H Respiratory Rate 18 20 Blood Pressure 110/53 L Pulse Oximetry 95 100 Intake & Output 10/23/18 10/23/18 10/24/18 06:59 18:59 06:59 Intake Total 950 / 950 Output Total 1000 / 1000 Balance -50 / -50 Weight 56.699 kg Intake: IV 950 / 950 Flexbumin 25% Inj 100 ML @ 60 100 / 100 mls/hr IV.SIG WITH DIALYSIS PRN Rx#:[id number] Zosyn 4.5 GM Premix 4.5 gm In 100 / 100 100 ml @ 200 mls/hr IV.SIG ONCE ONE Rx#:[id number] NS Inj 500 ML @ 1000 mls/hr IV. 500 / 500 SIG BOLUS [facility] Rx#:[id number] Vancomycin Inj 1,000 MG In NS 250 / 250 Inj 250 ML @ 250 mls/hr IV.SIG ONCE ONE Rx#:[id number] Output: Hemodialysis Amount 1000 / 1000 Results - Lab Results 10/23/18 07:20 10/23/18 08:30 Most recent lab results ABG pH 7.32 (7.380-7.420) L 10/23/18 09:04 ABG pCO2 47 mmHg (38-42) H 10/23/18 09:04 ABG pO2 88 mmHg (61-120) 10/23/18 09:04 ABG HCO3 23 mmol/L (22-26) 10/23/18 09:04 Calcium 8.5 mg/dL (8.5-10.1) 10/23/18 08:30 Magnesium 2.2 mg/dL (1.5-2.5) 10/23/18 08:30 Assessment and Plan - Assessment (1) End-stage renal disease on hemodialysis Code(s): N18.6 - End stage renal disease; Z99.2 - Dependence on renal dialysis Status: Acute Plan: Patient seen during HD and examined, agree with above. Patient missed HD on . BP is on lower side, removing 2.5 liters. Told to be compliant. (2) Pneumonia Code(s): J18.9 - Pneumonia, unspecified organism Status: Acute (3) COPD (chronic obstructive pulmonary disease) Code(s): J44.9 - Chronic obstructive pulmonary disease, unspecified Status: Acute (4) Hypertension Code(s): I10 - Essential (primary) hypertension Status: Acute
[2018-10-23] MEDS: Latanoprost 0.005% Opth Drops 2.5 ML Bottle EACH EYE SCH (18:21)
--- NOTE | 2018-10-23 20:48 | MB ---
cc: Ruben Weaver MD DATE: 10/23/2018 REASON FOR CONSULTATION: Lung nodule and COPD. HISTORY OF PRESENT ILLNESS: This is an 83-year-old man who was brought to the emergency room with a history of right-sided chest pain and cough, wheezing, and low oxygen saturations. The patient does have a history of end-stage renal disease and has been on dialysis and apparently was due to have his dialysis today. He was brought to the ER for possible pneumonia and a CT of the chest was done which demonstrated evidence of right lung infiltrates, as well as an enlarging left upper lobe lung nodule. The patient states there was a cough, but no hemoptysis. Denies fevers or chills. Chest pain is mostly on the right side. He has had no leg or calf muscle pains. The CT chest was negative for pulmonary emboli. PAST MEDICAL HISTORY: Includes a history for hypertension, end-stage renal disease, history of chronic bronchitis and emphysema. No history of diabetes. He has had prior history of pneumonia. HABITS: The patient smokes 1/2 to 1 pack per day, has done so for over 30 years, continues to smoke. Alcohol use: None. ALLERGIES: NO DRUG ALLERGIES LISTED. FAMILY HISTORY: Essentially noncontributory. MEDICATIONS: List was reviewed from the chart, includin. Xalatan eyedrops daily. 2. Losartan 50 mg a day. 3. Lyrica 25 mg t.i.d. 4. Tamsulosin 0.8 mg at bedtime. 5. Doxepin 25 mg daily. 6. Advair disc 250/50 one puff b.i.d. 7. Magnesium hydroxide p.o. 8. Magnesium hydroxide 30 mL daily. REVIEW OF SYSTEMS: Reveals the patient is unable to provide too many details. He has lost weight. He has cough, wheezing, orthopnea. He has some epigastric distress and denies any urinary symptoms. He has some joint pains to the extremities, and weakness. PHYSICAL EXAMINATION: GENERAL: A thinly built, elderly -[place] male who is pale and alert. VITAL SIGNS: Blood pressure is 110/60, pulse is 116, respirations 22, temperature 99.2. HEENT: Normocephalic. Pupils are reactive and equal. Tongue is dry. Throat is injected. Nasal mucosa is clear. NECK: Supple. No bruits or thyroid enlargement. No lymphadenopathy. CHEST: Distant breath sounds with occasional crackles in the right lung field. HEART: The heart sounds were regular, S1 and S2, with no murmur. No S3. ABDOMEN: Soft, protuberant without masses. No organomegaly. The bowel sounds are active. EXTREMITIES: Diminished peripheral pulses. Muscle wasting, and reflexes are 1+ with no gross motor deficits. Cranial nerves grossly intact. SKIN: Dry and cool. IMPRESSION: 1. Chronic obstructive pulmonary disease with chronic bronchitis and acute exacerbation. 2. Probable right upper lobe pneumonia. 3. Left upper lobe lung nodule, rule out malignancy. 4. End-stage renal disease, on dialysis. 5. Deconditioning. PLAN: The patient will be placed on O2 at 3 liters nasal cannula. Nebulized DuoNeb solution added every 6 hours, and we will start him on Symbicort 160/4.5 mcg 2 puffs b.i.d. Also, we will consider doing a CT-guided needle biopsy of the lung nodule to evaluate him for malignancy. The patient will be started on Rocephin 1 gram IV daily for his pneumonia. I will follow the case with you, Dr. Johnson. Thank you for this consultation. Ruben Weaver MD VJD/ll , 06:38 PM , 06:49 PM
--- NOTE | 2018-10-23 20:56 | P.HPFP ---
History of Present Illness Service: family practice Primary Care Physician: UNKNOWN Chief Complaint: right sided pain weaknes short of breath History of Present Illness: pt resides at [facility] has ESRD left lung nodule suspicious for malignancy and recent hospitalization for right sided pneumoniae he frequently refuses dialysis and invariably returns to the hospital with fluid imbalance he missed dialysis yesterday - Diagnosis (1) Acute kidney failure (2) Lung nodule Inpatient Certification: I certify that the inpatient services were ordered in accordance with Medicare regulations governing the order. 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, 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 - Medical History Medical History: Medical History (Last Reviewed 10/08/18 @ 18:06 by Lety Reis) BPH loc w urin obs/LUTS (Acute) COPD (chronic obstructive pulmonary disease) (Acute) Hypertension (Acute) Anemia Degenerative disc disease ESRD (end stage renal disease) on dialysis GERD (gastroesophageal reflux disease) History of alcohol dependence History of squamous cell carcinoma - Surgical History Surgical History: Surgical History (Last Reviewed 10/08/18 @ 18:06 by Lety Reis) H/O hernia repair - Family History Family History: Family History (Last Reviewed 09/17/18 @ 09:10 by JENNIE Dang) Other Family history of cancer - Tobacco History Second Hand Smoke Exposure: No Tobacco Use In Past 30 Days: Yes Smoking Status: Current every day smoker Tobacco Type: Cigarettes Packs Per Day: 2 Cigarettes Per Day: 40 Years Smoked: 40 years: 80 - Alcohol History How Often Do You Have a Drink Containing Alcohol: Never - Substance Use History Substance History: No History of Abuse - Travel History Recent Travel in the [place] Within the Last 8 Weeks: No Recent Travel Out of the Country Within the Last 8 Weeks: No - Immunization History Tetanus Immunization: Unsure Medications and Allergies Active Medications: Active Medications Acetaminophen (Tylenol) 650 mg PO Q4H PRN PRN Reason: Temp > 100.4 Acetaminophen (Tylenol) 650 mg PO UNSCH PRN PRN Reason: SEE LABEL COMMENTS Al Hydroxide/Mg Hydroxide (Milk Of Luke Garcia) 30 ml PO Q12H PRN PRN Reason: Mild Constipation Albuterol (Duoneb Neb (Lashae)) 1 ampul NEB Q6HR NEB [facility] Bisacodyl (Dulcolax Supp) 10 mg RECTAL DAILY PRN PRN Reason: SEVERE CONSITIPATION Budesonide/Formoterol Fumarate (Symbicort 160/4.5 Mcg Inh) 2 puff INH BID LASHAE Clonidine HCl (Catapres) 0.1 mg PO UNSCH PRN PRN Reason: SEE LABEL COMMENTS Diphenhydramine HCl (Benadryl) 25 mg PO UNSCH PRN PRN Reason: SEE LABEL COMMENTS Doxepin HCl (Sinequan) 25 mg PO DAILY LASHAE Epoetin González (Epogen Inj) 4,000 unit IV.PUSH UNSCH PRN PRN Reason: SEE LABEL COMMENTS Gelatin (Gelfoam 12 Mm/7 Mm Topical) 1 foam TOPICAL PRN PRN PRN Reason: help stop bleeding from site Gentamicin Sulfate (Gentamicin Inj) 20 mg OTHER WITH DIALYSIS PRN PRN Reason: Dwell Gentamycin Lock Last Admin: 10/23/18 17:25 Dose: 20 mg Guaifenesin (Mucinex Er) 600 mg PO Q12H LASHAE Last Admin: 10/23/18 10:54 Dose: Not Given Heparin Sodium (Porcine) (Heparin Inj) 8,000 units OTHER WITH DIALYSIS PRN PRN Reason: for machine prime Heparin Sodium (Porcine) (Heparin Inj) 1,000 units OTHER WITH DIALYSIS PRN PRN Reason: Dwell Heparin to Fill Catheter Albumin Human (Flexbumin 25% Inj) 100 mls @ 60 mls/hr IV.SIG WITH DIALYSIS PRN PRN Reason: hypotension / volume replace Last Infusion: 10/23/18 15:40 Dose: Infused Sodium Chloride (Ns Inj) 1,000 mls @ 0 mls/hr OTHER .Q0M PRN PRN Reason: for prime and rinse back Sodium Chloride (Ns Inj) 1,000 mls @ 200 mls/hr OTHER .Q5H PRN PRN Reason: for dialyzer flush PRN Sodium Chloride (Ns Inj) 1,000 mls @ 0 mls/hr IV.CONT .Q0M PRN PRN Reason: hypotension / volume replace Ceftriaxone Sodium 1,000 mg/ (Sodium Chloride) 100 mls @ 200 mls/hr IV.SIG Q24H [facility] Lactulose (Lactulose Liq) 30 ml PO DAILY PRN PRN Reason: SEVERE CONSITIPATION Latanoprost (Xalatan 0.005% Opth Drops) 1 drop EACH EYE QPM [facility] Last Admin: 10/23/18 18:21 Dose: Not Given Lorazepam (Ativan) 0.5 mg PO Q8H PRN PRN Reason: Anxiety Losartan Potassium (Cozaar) 50 mg PO DAILY [facility] Mannitol (Mannitol Inj) 12.5 gm IV.PUSH UNSCH PRN PRN Reason: hypotension / volume replace Nitroglycerin (Nitrostat Sl (Override)) 0.4 mg SL Q5M PRN PRN Reason: Chest Pain Nitroglycerin (Nitrostat Sl) 0.4 mg SL Q5M PRN PRN Reason: CHEST PAIN Ondansetron HCl (Zofran Inj) 4 mg IV.PUSH Q6H PRN PRN Reason: NAUSEA OR VOMITING Ondansetron HCl (Zofran Odt) 4 mg PO TID PRN PRN Reason: NAUSEA Ondansetron HCl (Zofran Inj) 4 mg IV.PUSH UNSCH PRN PRN Reason: NAUSEA OR VOMITING Oxycodone/Acetaminophen (Percocet 5/325 Mg) 1 tab PO Q4H PRN PRN Reason: PAIN 1-10 Pt Own Med:( Brimonidine [ Alphagan P] 1 Drp) 0 each EACH EYE BID [facility] Prednisone (Deltasone) 5 mg PO DAILY [facility] Pregabalin (Lyrica) 25 mg PO TID [facility] Last Admin: 10/23/18 18:21 Dose: Not Given Senna/Docusate Sodium (Denise-Colace) 1 tab PO BID [facility] Sennosides (Senokot) 17.2 mg PO Q12H PRN PRN Reason: Moderate Constipation Sodium Chloride (Ns Flush) 2 ml IV.FLUSH BID [facility] Sodium Chloride (Ns Flush) 2 ml IV.FLUSH PRN PRN PRN Reason: FLUSH AFTER USING IV ACCESS Sodium Chloride (Ns Flush) 5 ml IV.FLUSH PRN PRN PRN Reason: flush each lumen during HD Tamsulosin HCl (Flomax) 0.8 mg PO HS [facility] Vitamin B Complex/Vit C/Folic Acid (Nephrocaps) 1 tab PO DAILY [facility] Allergies Allergy/AdvReac Type Severity Reaction Status Date / Time No Known Allergies Allergy Verified 10/08/18 18:07 Home Medications Medication Instructions Recorded Confirmed Type brimonidine [Alphagan P] 1 drp EACH EYE BID 09/16/18 10/23/18 History [id number] 1 cap PO Q4H PRN 09/16/18 10/23/18 History [Fioricet] latanoprost [Xalatan] 1 drp EACH EYE QPM 09/16/18 10/23/18 History losartan 50 mg PO DAILY 09/16/18 10/23/18 History pregabalin [Lyrica] 25 mg PO TID 09/16/18 10/23/18 History tamsulosin 0.8 mg PO HS 09/16/18 10/23/18 History doxepin 25 mg PO DAILY 10/08/18 10/23/18 History acetaminophen 325 mg PO Q4H PRN 10/23/18 10/23/18 History fluticasone-salmeterol [Advair 1 inh INHALATION BID 10/23/18 10/23/18 History Diskus] guaifenesin 600 mg PO Q12H 10/23/18 10/23/18 History magnesium hydroxide [Milk of 30 ml PO DAILY PRN 10/23/18 10/23/18 History Magnesia] ondansetron HCl [Zofran] 4 mg PO TID PRN 10/23/18 10/23/18 History vitamin B complex 1 tab PO DAILY 10/23/18 10/23/18 History Exam Vital signs: Vital Signs 10/23/18 06:43 10/23/18 06:55 10/23/18 07:53 Temperature 99.6 F 99.6 F Pulse Rate 117 H 118 H Respiratory Rate 15 Blood Pressure 139/81 Pulse Oximetry 98 97 97 10/23/18 10:44 10/23/18 10:54 Temperature 99.1 F Pulse Rate 127 H 108 H Respiratory Rate 18 Blood Pressure 110/53 L Pulse Oximetry 95 Intake & Output 10/23/18 10/23/18 10/24/18 06:59 18:59 06:59 Intake Total 950 / 950 Output Total 1000 / 1000 Balance -50 / -50 Weight 56.699 kg Intake: IV 950 / 950 Flexbumin 25% Inj 100 ML @ 60 100 / 100 mls/hr IV.SIG WITH DIALYSIS PRN Rx#:[id number] Zosyn 4.5 GM Premix 4.5 gm In 100 / 100 100 ml @ 200 mls/hr IV.SIG ONCE ONE Rx#:[id number] NS Inj 500 ML @ 1000 mls/hr IV. 500 / 500 SIG BOLUS LASHAE Rx#:[id number] Vancomycin Inj 1,000 MG In NS 250 / 250 Inj 250 ML @ 250 mls/hr IV.SIG ONCE ONE Rx#:[id number] Output: Hemodialysis Amount 1000 / 1000 Narrative: frail elderly black male - Constitutional no acute distress - Routine HEENT Exam Head: Present: normocephalic Eye: Present: EOMI, PERRL ENT: Present: mucous membranes moist - Routine Neck Exam Present: supple - Routine Respiratory Exam Present: decreased breath sounds Comments: decreased right lower lobe - Routine Cardiovascular Exam Present: RRR - Routine Abdominal Exam Present: soft, normoactive bowel sounds - Routine Neurological Exam Present: alert Results - Labs Result diagrams: 10/23/18 07:20 10/23/18 08:30 Abnormal lab results 10/23/18 10/23/18 10/23/18 Range/Units 07:20 07:40 08:03 RBC 3.36 L (4.50-5.90) mil/mm3 Hgb 10.0 L (13.0-17.0) gm/dL Hct 30.5 L (39.0-51.0) % RDW 21.6 H (11.6-17.2) % Neut % (Auto) 75.6 H (16.0-70.0) % Lymph % (Auto) 5.8 L (9.0-44.0) % [place] % (Auto) 16.3 H (0.0-8.0) % Lymph # (Auto) 0.5 L (1.0-4.8) th/mm3 [place] # (Auto) 1.5 H (0.0-0.9) th/mm3 Seg Neuts % (Manual) 73 H (16-70) % Lymphocytes % (Manual) 4 L (9-44) % Monocytes % (Manual) 18 H (0-8) % Myelocytes % (Man) 1 H (0-0) % Ovalocytes 1+ H (None) ABG pH (7.380-7.420) ABG pCO2 (38-42) mmHg ABG O2 Content (12.0-20.0) Vol % ABG Base Excess (-2-2) mmol/L Hemoglobin (12.0-16.0) G/DL Potassium (3.5-5.1) meq/L Chloride (98-107) meq/L BUN (7-18) mg/dL Creatinine (0.60-1.30) mg/dL Estimated GFR (>89) mL/min POC Glucose 120 H (68-110) mg/dl ALT (12-78) U/L Albumin (3.4-5.0) g/dL Urine Protein 30 H (Neg-Trace) mg/dL 10/23/18 10/23/18 Range/Units 08:30 09:04 RBC (4.50-5.90) mil/mm3 Hgb (13.0-17.0) gm/dL Hct (39.0-51.0) % RDW (11.6-17.2) % Neut % (Auto) (16.0-70.0) % Lymph % (Auto) (9.0-44.0) % Free[place] % (Auto) (0.0-8.0) % Lymph # (Auto) (1.0-4.8) th/mm3 [place] # (Auto) (0.0-0.9) th/mm3 Seg Neuts % (Manual) (16-70) % Lymphocytes % (Manual) (9-44) % Monocytes % (Manual) (0-8) % Myelocytes % (Man) (0-0) % Ovalocytes (None) ABG pH 7.32 L (7.380-7.420) ABG pCO2 47 H (38-42) mmHg ABG O2 Content 11.5 L (12.0-20.0) Vol % ABG Base Excess -2.1 L (-2-2) mmol/L Hemoglobin 8.6 L (12.0-16.0) G/DL Potassium 5.8 H (3.5-5.1) meq/L Chloride 109 H (98-107) meq/L BUN 85 H (7-18) mg/dL Creatinine 8.24 H (0.60-1.30) mg/dL Estimated GFR 8 L (>89) mL/min POC Glucose (68-110) mg/dl ALT 10 L (12-78) U/L Albumin 1.9 L (3.4-5.0) g/dL Urine Protein (Neg-Trace) mg/dL Short CBC 10/23/18 Range/Units 07:20 WBC 9.2 (4.0-11.0) th/mm3 Hgb 10.0 L (13.0-17.0) gm/dL Hct 30.5 L (39.0-51.0) % Plt Count 325 D (150-450) th/mm3 BMP 10/23/18 08:30 Sodium 140 Potassium 5.8 H Chloride 109 H Carbon Dioxide 22.1 BUN 85 H Creatinine 8.24 H Calcium 8.5 Liver Function 10/23/18 Range/Units 08:30 Total Bilirubin 0.5 (0.2-1.0) mg/dL AST 25 (15-37) U/L ALT 10 L (12-78) U/L Alkaline Phosphatase 49 (45-117) U/L Albumin 1.9 L (3.4-5.0) g/dL Urine 10/23/18 Range/Units 07:40 Urine Color Yellow (Yellw/Straw) Urine Clarity Clear (Clear) Urine pH 6.0 (5.0-8.5) Ur Specific Embudo 1.011 (1.002-1.035) Urine Protein 30 H (Neg-Trace) mg/dL Urine Glucose (UA) Negative (Negative) mg/dL - Imaging Impressions Chest X-Ray 10/23/18 07:14 CONCLUSION: 1. Airspace opacities in the right mid to lower lung zones have improved from prior exam. Differential considerations include resolving versus recurring pneumonia or aspiration. Chest CTA 10/23/18 07:53 CONCLUSION: 1. No evidence of pulmonary emboli 2. Enlarging left upper lobe pulmonary nodule characteristic of malignancy. 3. Consolidating airspace disease in the right upper and lower lobes Caprini VTE Risk Assessment Caprini VTE Risk Assessment: Moderate/High Risk (score >= 2) Caprini Risk Assessment Model: Point Value = 1 Point Value = 2 Point Value = 3 Point Value = 5 Age 41-60 Minor surgery BMI > 25 kg/m2 Swollen legs Varicose veins or History of unexplained or recurrent spontaneous Oral contraceptives or hormone replacement Sepsis (< 1 month) Serious lung disease, including pneumonia (< 1 month) Abnormal pulmonary function Acute myocardial infarction Congestive heart failure (< 1 month) History of inflammatory bowel disease Medical patient at bed rest Age 61-74 Arthroscopic surgery Major open surgery (> 45 min) Laparoscopic surgery (> 45 min) Malignancy Confined to bed (> 72 hours) Immobilizing plaster cast Central venous access Age >= 75 History of VTE Family history of VTE Factor V Leiden Prothrombin [id number] Lupus anticoagulant Anticardiolipin antibodies Elevated serum homocysteine Heparin-induced thrombocytopenia Other congenital or acquired thrombophilia Stroke (< 1 month) Elective arthroplasty Hip, pelvis, or leg fracture Acute spinal cord injury (< 1 month) Prophylaxis Regimen: Total Risk Factor Score Risk Level Prophylaxis Regimen 0-1 Low Early ambulation 2 Moderate Order ONE of the following: *Sequential Compression Device (SCD) *Heparin 5000 units SQ BID 3-4 Higher Order ONE of the following medications: *Heparin 5000 units SQ TID *Enoxaparin/Lovenox 40 mg SQ daily (WT < 150 kg, CrCl > 30 mL/min) *Enoxaparin/Lovenox 30 mg SQ daily (WT < 150 kg, CrCl > 10-29 mL/min) *Enoxaparin/Lovenox 30 mg SQ BID (WT < 150 kg, CrCl > 30 mL/min) AND/OR *Sequential Compression Device (SCD) 5 or more Highest Order ONE of the following medications: *Heparin 5000 units SQ TID (Preferred with Epidurals) *Enoxaparin/Lovenox 40 mg SQ daily (WT < 150 kg, CrCl > 30 mL/min) *Enoxaparin/Lovenox 30 mg SQ daily (WT < 150 kg, CrCl > 10-29 mL/min) *Enoxaparin/Lovenox 30 mg SQ BID (WT < 150 kg, CrCl > 30 mL/min) AND *Sequential Compression Device (SCD) Assessment and Plan - Assessment (1) Acute kidney failure Code(s): N17.9 - Acute kidney failure, unspecified Status: Acute Onset Date : ~05/22/18 (2) Lung nodule Code(s): R91.1 - Solitary pulmonary nodule Status: Acute Onset Date: ~ - Assessment and Plan dialize consider lung biopsy (1) Acute kidney failure Qualifiers: Acute renal failure type: with other specified pathological lesion Qualified Code(s): N17.8 - Other acute kidney failure
[2018-10-23] MEDS ORDERED: BRIMONIDINE EACH EYE SCH (21:00)
[2018-10-23] MEDS: Senna/Docusate Sodium 8.6/50 MG Tablet PO SCH (22:00)
[2018-10-23] MEDS: Budesonide-Formoterol 160/4.5 MCG 6 GM Inhaler INH SCH (23:27)
[2018-10-23] MEDS: Acetaminophen 325 MG Tablet PO PRN (23:45)
[2018-10-24 06:37] LABS: Calcium 8.3 mg/dL (8.5-10.1); Carbon Dioxide 31.6 meq/L (21.0-32.0)
[2018-10-24] MEDS: Senna/Docusate Sodium 8.6/50 MG Tablet PO SCH ×2 (09:19→21:04)
[2018-10-24] MEDS: Pregabalin 25 MG Capsule PO SCH ×3 (09:19→18:25)
[2018-10-24] MEDS: Vitamin B Complex/Vit C/Folic Tablet PO SCH (09:19)
[2018-10-24] MEDS: Budesonide-Formoterol 160/4.5 MCG 6 GM Inhaler INH SCH ×2 (09:20→22:25)
[2018-10-24] MEDS: predniSONE 10 MG Tablet PO SCH (09:20)
[2018-10-24 10:27] LABS: Hematocrit 26.8 % (39.0-51.0); Hemoglobin 8.6 gm/dL (13.0-17.0); Mean Corpuscular HGB Conc 32.1 % (32.0-36.0); Mean Corpuscular Hemoglobin 28.7 pg (27.0-34.0); Mean Corpuscular Volume 89.4 fL (80.0-100.0); Mean Platelet Volume 7.8 fL (7.0-11.0); Platelet Count 274 th/mm3 (150-450); Red Cell Distribution Width 21.1 % (11.6-17.2); White Blood Count 7.4 th/mm3 (4.0-11.0)
[2018-10-24 10:40] LABS: INR 1.1 Ratio; Prothrombin Time 11.4 sec (9.8-11.6)
--- NOTE | 2018-10-24 10:51 | P.PNFP ---
Subjective Interval history: Sleepy this am, Denies any pain Voices he is SOB, Sat's maintained on 3 liters Had dialysis last night Results - Labs Result diagrams: 10/24/18 09:36 10/24/18 05:31 Abnormal lab results 10/24/18 10/24/18 Range/Units 05:31 09:36 RBC 3.00 L (4.50-5.90) mil/mm3 Hgb 8.6 L (13.0-17.0) gm/dL Hct 26.8 L (39.0-51.0) % RDW 21.1 H (11.6-17.2) % BUN 39 H (7-18) mg/dL Creatinine 4.98 H (0.60-1.30) mg/dL Estimated GFR 14 L (>89) mL/min Random Glucose 124 H (74-106) mg/dL Calcium 8.3 L (8.5-10.1) mg/dL Short CBC 10/24/18 Range/Units 09:36 WBC 7.4 (4.0-11.0) th/mm3 Hgb 8.6 L (13.0-17.0) gm/dL Hct 26.8 L (39.0-51.0) % Plt Count 274 (150-450) th/mm3 BMP 10/24/18 05:31 Sodium 142 Potassium 4.0 D Chloride 103 Carbon Dioxide 31.6 D BUN 39 H Creatinine 4.98 H Calcium 8.3 L Physical Exam Vital signs: Vital Signs 10/23/18 10:54 10/23/18 20:00 10/23/18 21:08 Temperature 98.0 F Pulse Rate 108 H 116 H 119 H Respiratory Rate 20 20 Blood Pressure 125/66 Pulse Oximetry 98 100 10/24/18 00:00 10/24/18 01:00 10/24/18 04:00 Temperature 101.8 F H 99.0 F 98.4 F Pulse Rate 129 H 53 L Respiratory Rate 20 20 Blood Pressure 97/55 L 100/58 L Pulse Oximetry 96 99 10/24/18 08:00 10/24/18 08:48 Temperature 98.3 F Pulse Rate 92 H 94 H Respiratory Rate 20 16 Blood Pressure 98/56 L Pulse Oximetry 99 100 Intake & Output 10/23/18 10/24/18 10/24/18 18:59 06:59 18:59 Intake Total 950 / 950 100 / 100 Output Total 1000 / 1000 Balance -50 / -50 100 / 100 Weight 53 kg Intake: IV 950 / 950 100 / 100 Flexbumin 25% Inj 100 ML @ 60 100 / 100 mls/hr IV.SIG WITH DIALYSIS PRN Rx#:[id number] Zosyn 4.5 GM Premix 4.5 gm In 100 / 100 100 ml @ 200 mls/hr IV.SIG ONCE ONE Rx#:[id number] NS Inj 500 ML @ 1000 mls/hr IV. 500 / 500 SIG BOLUS LALITO Rx#:[id number] Vancomycin Inj 1,000 MG In NS 250 / 250 Inj 250 ML @ 250 mls/hr IV.SIG ONCE ONE Rx#:[id number] Rocephin Inj 1,000 MG In NS Inj 100 / 100 100 ML @ 200 mls/hr IV.SIG Q24H LALITO Rx#:[id number] Output: Hemodialysis Amount 1000 / 1000 Other: # Voids 2 - Constitutional no acute distress - Routine HEENT Exam Eye: Present: PERRL ENT: Present: mucous membranes moist - Routine Respiratory Exam Present: rhonchi, diminished air movement - Routine Cardiovascular Exam Present: S1, S2 - Routine Abdominal Exam Present: soft, normoactive bowel sounds - Routine Skin Exam Present: dry, warm - Routine Neurological Exam Present: alert, oriented X3 - Routine Psychiatric Exam Present: cooperative Assessment and Plan - Assessment (1) Pneumonia Code(s): J18.9 - Pneumonia, unspecified organism Status: Acute Plan: Pulmonary consult, Bronchodilators, Oxygen supplement, Rocephin Iv (2) End stage renal disease Code(s): N18.6 - End stage renal disease Status: Acute Plan: HD T/TH/Sat (3) Lung nodule Code(s): R91.1 - Solitary pulmonary nodule Status: Acute Onset Date: ~ Plan: CT Guided Biopsy (4) Hypertension Code(s): I10 - Essential (primary) hypertension Status: Resolved Plan: Cont home med's (5) Anemia of renal disease Code(s): D63.1 - Anemia in chronic kidney disease Status: Acute Plan: Monitor CBC (6) Hypertension Code(s): I10 - Essential (primary) hypertension Status: Acute - Assessment and Plan y (4) Hypertension Qualifiers:
[2018-10-24] MEDS: guaiFENesin 600 MG ER Tablet PO SCH ×2 (13:10→22:25)
[2018-10-24] MEDS: Latanoprost 0.005% Opth Drops 2.5 ML Bottle EACH EYE SCH (18:25)
--- NOTE | 2018-10-24 18:41 | P.PN ---
Subjective Interval history: he is alert and is breathing better.No fever. On 2 L o2 will go for CT needle biopsy of left lung nodule Physical Exam Vital signs: Vital Signs 10/23/18 20:00 10/23/18 21:08 10/24/18 00:00 Temperature 98.0 F 101.8 F H Pulse Rate 116 H 119 H 129 H Respiratory Rate 20 20 20 Blood Pressure 125/66 97/55 L Pulse Oximetry 98 100 96 10/24/18 01:00 10/24/18 04:00 10/24/18 08:00 Temperature 99.0 F 98.4 F 98.3 F Pulse Rate 53 L 92 H Respiratory Rate 20 20 Blood Pressure 100/58 L 98/56 L Pulse Oximetry 99 99 10/24/18 08:48 10/24/18 12:00 10/24/18 15:43 Temperature 98.6 F Pulse Rate 94 H 115 H Respiratory Rate 16 20 Blood Pressure 111/58 L Pulse Oximetry 100 99 100 10/24/18 15:44 10/24/18 16:00 Temperature 98.5 F Pulse Rate 115 H 91 H Respiratory Rate 18 20 Blood Pressure 110/66 Pulse Oximetry 100 Intake & Output 10/23/18 10/24/18 10/24/18 18:59 06:59 18:59 Intake Total 950 / 950 100 / 100 480 / 480 Output Total 1000 / 1000 Balance -50 / -50 100 / 100 480 / 480 Weight 53 kg Intake: IV 950 / 950 100 / 100 Flexbumin 25% Inj 100 ML @ 60 100 / 100 mls/hr IV.SIG WITH DIALYSIS PRN Rx#:[id number] Zosyn 4.5 GM Premix 4.5 gm In 100 / 100 100 ml @ 200 mls/hr IV.SIG ONCE ONE Rx#:[id number] NS Inj 500 ML @ 1000 mls/hr IV. 500 / 500 SIG BOLUS LALITO Rx#:[id number] Vancomycin Inj 1,000 MG In NS 250 / 250 Inj 250 ML @ 250 mls/hr IV.SIG ONCE ONE Rx#:[id number] Rocephin Inj 1,000 MG In NS Inj 100 / 100 100 ML @ 200 mls/hr IV.SIG Q24H LALITO Rx#:[id number] Oral 480 / 480 Output: Hemodialysis Amount 1000 / 1000 Other: # Voids 2 # Incontinent Voids 2 # Incontinent Bowel Movements 1 Narrative: frail elderly black male GENERAL: alert talking . SKIN: Warm and dry. HEAD: Atraumatic. Normocephalic. EYES: Pupils equal and round. No scleral icterus. No injection or drainage. ENT: No nasal bleeding or discharge. Mucous membranes pink and moist. NECK: Trachea midline. No JVD. CARDIOVASCULAR: Regular rate and rhythm. RESPIRATORY: No accessory muscle use. Occ Basal crackles + and Breath sounds equal bilaterally. GASTROINTESTINAL: Abdomen soft, non-tender, nondistended. Hepatic and splenic margins not palpable. MUSCULOSKELETAL: Extremities without clubbing, cyanosis, or edema.Has muscle wasting. NEUROLOGICAL: Awake and alert. No obvious cranial nerve deficits. Motor grossly within normal limits. Normal speech. PSYCHIATRIC: Appropriate mood and affect. Results - Labs CBC & Chem 7: 10/24/18 09:36 10/24/18 05:31 Laboratory Results - last 24 hr 10/24/18 10/24/18 10/24/18 01:10 05:31 09:36 WBC 7.4 RBC 3.00 L Hgb 8.6 L Hct 26.8 L MCV 89.4 MCH 28.7 MCHC 32.1 RDW 21.1 H Plt Count 274 MPV 7.8 PT INR Sodium 142 Potassium 4.0 D Chloride 103 Carbon Dioxide 31.6 D Anion Gap 7 BUN 39 H Creatinine 4.98 H Estimated GFR 14 L Random Glucose 124 H Lactic Acid 1.2 Calcium 8.3 L 10/24/18 09:36 WBC RBC Hgb Hct MCV MCH MCHC RDW Plt Count MPV PT 11.4 INR 1.1 Sodium Potassium Chloride Carbon Dioxide Anion Gap BUN Creatinine Estimated GFR Random Glucose Lactic Acid Calcium Microbiology 10/23/18 07:05 Blood - Peripheral Aerobic Blood Culture - Preliminary No growth in 1 day 10/23/18 07:05 Blood - Peripheral Anaerobic Blood Culture - Preliminary No growth in 1 day 10/23/18 07:00 Blood - Peripheral Aerobic Blood Culture - Preliminary No growth in 1 day 10/23/18 07:00 Blood - Peripheral Anaerobic Blood Culture - Preliminary No growth in 1 day Assessment and Plan - Assessment (1) Acute kidney failure Code(s): N17.9 - Acute kidney failure, unspecified Status: Acute Onset Date : ~05/22/18 (2) Hydronephrosis Code(s): N13.30 - Unspecified hydronephrosis Status: Acute Onset Date: ~10/28 (3) Acute exacerbation of COPD with asthma Code(s): J44.1 - Chronic obstructive pulmonary disease with (acute) exacerbation ; J45.901 - Unspecified asthma with (acute) exacerbation Status: Resolved Onset Date: ~05/22/18 (4) Weakness Code(s): R53.1 - Weakness Status: Acute (5) Lung nodule Code(s): R91.1 - Solitary pulmonary nodule Status: Acute Onset Date: ~ (6) Obstructive uropathy Code(s): N13.9 - Obstructive and reflux uropathy, unspecified Status: Chronic (7) Vitamin D deficiency Code(s): E55.9 - Vitamin D deficiency, unspecified Status: Acute (8) Hypertension Code(s): I10 - Essential (primary) hypertension Status: Resolved - Plan 1. Will leave on o2 2 L. 2. IR to do Biopsy of left lung nodule 3. Duonebs qid. 4. Continue Rocephin , 1 G IV daily 5. BMP ,CXR in am 6. Continue Symbicort , 2 puffs BID (1) Acute kidney failure Qualifiers: Acute renal failure type: with other specified pathological lesion Qualified Code(s): N17.8 - Other acute kidney failure (2) Hydronephrosis Qualifiers: Hydronephrosis type: other Qualified Code(s): N13.39 - Other hydronephrosis (8) Hypertension Qualifiers:
--- NOTE | 2018-10-24 21:05 | P.PNNP ---
Subjective Interval history: Patient seen in the afternoon, alert, not in distress. Physical Exam Vital signs: Vital Signs 10/23/18 21:08 10/24/18 00:00 10/24/18 01:00 Temperature 101.8 F H 99.0 F Pulse Rate 119 H 129 H Respiratory Rate 20 20 Blood Pressure 97/55 L Pulse Oximetry 100 96 10/24/18 04:00 10/24/18 08:00 10/24/18 08:48 Temperature 98.4 F 98.3 F Pulse Rate 53 L 92 H 94 H Respiratory Rate 20 20 16 Blood Pressure 100/58 L 98/56 L Pulse Oximetry 99 99 100 10/24/18 12:00 10/24/18 15:43 10/24/18 15:44 Temperature 98.6 F Pulse Rate 115 H 115 H Respiratory Rate 20 18 Blood Pressure 111/58 L Pulse Oximetry 99 100 10/24/18 16:00 Temperature 98.5 F Pulse Rate 91 H Respiratory Rate 20 Blood Pressure 110/66 Pulse Oximetry 100 Intake & Output 10/24/18 10/24/18 10/25/18 06:59 18:59 06:59 Intake Total 100 / 100 480 / 480 Balance 100 / 100 480 / 480 Weight 53 kg Intake: IV 100 / 100 Rocephin Inj 1,000 MG In NS Inj 100 / 100 100 ML @ 200 mls/hr IV.SIG Q24H [facility] Rx#:[id number] Oral 480 / 480 Other: # Voids 2 # Incontinent Voids 2 # Incontinent Bowel Movements 1 Narrative: frail elderly black male GENERAL: alert talking . SKIN: Warm and dry. HEAD: Atraumatic. Normocephalic. EYES: Pupils equal and round. No scleral icterus. No injection or drainage. ENT: No nasal bleeding or discharge. Mucous membranes pink and moist. NECK: Trachea midline. No JVD. CARDIOVASCULAR: Regular rate and rhythm. RESPIRATORY: No accessory muscle use. Occ Basal crackles + and Breath sounds equal bilaterally. GASTROINTESTINAL: Abdomen soft, non-tender, nondistended. Hepatic and splenic margins not palpable. MUSCULOSKELETAL: Extremities without clubbing, cyanosis, or edema.Has muscle wasting. NEUROLOGICAL: Awake and alert. No obvious cranial nerve deficits. Motor grossly within normal limits. Normal speech. PSYCHIATRIC: Appropriate mood and affect. Assessment and Plan - Assessment (1) End-stage renal disease on hemodialysis Code(s): N18.6 - End stage renal disease; Z99.2 - Dependence on renal dialysis Status: Acute Plan: Patient with end stage renal disease, now with left upper lung nodule and increasing size. HD was done yesterday. Seen by Pulmonary, will need Biopsy on Saturday. HD will be in AM. (2) Pneumonia Code(s): J18.9 - Pneumonia, unspecified organism Status: Acute Plan: On antibiotics. Continues to have shortness of breath. (3) COPD (chronic obstructive pulmonary disease) Code(s): J44.9 - Chronic obstructive pulmonary disease, unspecified Status: Acute Plan: On breathing treatment. (4) Hypertension Code(s): I10 - Essential (primary) hypertension Status: Acute Plan: Well controlled.
[2018-10-25] MEDS ORDERED: cefTRIAXone Inj 1,000 MG Vial IM SCH (00:15)
--- NOTE | 2018-10-25 09:34 | P.PNNP ---
Subjective Interval history: Seen during Hemodialysis, tolerating well. Denies any shortness of breath, chest pain, nausea, or vomiting. Complaining of some lower extremity leg pain. <Marcy Gardner - Last Filed: 10/25/18 09:27> Physical Exam Vital signs: Vital Signs 10/24/18 12:00 10/24/18 15:43 10/24/18 15:44 Temperature 98.6 F Pulse Rate 115 H 115 H Respiratory Rate 20 18 Blood Pressure 111/58 L Pulse Oximetry 99 100 10/24/18 16:00 10/24/18 20:00 10/24/18 21:37 Temperature 98.5 F 97.6 F Pulse Rate 91 H 81 81 Respiratory Rate 20 20 20 Blood Pressure 110/66 92/50 L Pulse Oximetry 100 97 10/25/18 00:00 10/25/18 04:00 10/25/18 08:00 Temperature 97.6 F 98.6 F 98.5 F Pulse Rate 96 H 99 H 114 H Respiratory Rate 20 20 20 Blood Pressure 93/53 L 94/53 L 131/64 Pulse Oximetry 97 95 94 L Intake & Output 10/24/18 10/25/18 10/25/18 18:59 06:59 18:59 Intake Total 480 / 480 Balance 480 / 480 Weight 53 kg Intake: Oral 480 / 480 Other: # Voids 1 # Incontinent Voids 2 # Bowel Movements 1 # Incontinent Bowel Movements 1 Narrative: GENERAL: Frail, Alert and oriented. SKIN: Warm and dry. NECK: Trachea midline. No JVD. CARDIOVASCULAR: Regular rate and rhythm. Right IJ permacath. RESPIRATORY: No accessory muscle use. Breath sounds are diminished. GASTROINTESTINAL: Abdomen soft, non-tender, nondistended. MUSCULOSKELETAL: Extremities without clubbing, cyanosis, or edema. Generalized weakness. PSYCHIATRIC: Appropriate mood and affect. <Marcy Gardner - Last Filed: 10/25/18 09:27> Vital signs: Vital Signs 10/24/18 21:37 10/25/18 00:00 10/25/18 01:00 Temperature 97.6 F 97.9 F Pulse Rate 81 96 H 115 H Respiratory Rate 20 20 20 Blood Pressure 93/53 L 88/53 L Pulse Oximetry 97 94 L 10/25/18 04:00 10/25/18 08:00 10/25/18 15:45 Temperature 98.6 F 98.5 F Pulse Rate 99 H 114 H 116 H Respiratory Rate 20 20 19 Blood Pressure 94/53 L 131/64 Pulse Oximetry 95 94 L 10/25/18 16:00 Temperature 98.2 F Pulse Rate 100 H Respiratory Rate 20 Blood Pressure 91/56 L Pulse Oximetry 100 Intake & Output 10/25/18 10/25/18 10/26/18 06:59 18:59 06:59 Intake Total 480 / 480 Output Total 1000 / 1000 Balance -520 / -520 Weight 53 kg Intake: Oral 480 / 480 Output: Hemodialysis Amount 1000 / 1000 Other: # Voids 1 # Incontinent Voids 3 # Bowel Movements 1 # Incontinent Bowel Movements 2 <Juan Green - Last Filed: 10/25/18 20:54> Assessment and Plan - Assessment (1) End-stage renal disease on hemodialysis Code(s): N18.6 - End stage renal disease; Z99.2 - Dependence on renal dialysis Status: Acute Plan: Patient with end stage renal disease on HD on Saturday, , Saturday Avoid IVF administration Epogen with dialysis Seen during hemodialysis tolerating well, 3 K bath. (2) Pneumonia Code(s): J18.9 - Pneumonia, unspecified organism Status: Acute Plan: On antibiotics. (3) COPD (chronic obstructive pulmonary disease) Code(s): J44.9 - Chronic obstructive pulmonary disease, unspecified Status: Acute Plan: On breathing treatment and steroids. Followed by Pulmonary (4) Hypertension Code(s): I10 - Essential (primary) hypertension Status: Acute Plan: Blood pressure has been on lower side, will discontinue losartan for now. (5) Lung mass Code(s): R91.8 - Other nonspecific abnormal finding of lung field Status: Acute Plan: Left upper lung nodule and increasing size. Seen by Pulmonary, will need Biopsy on Saturday. <Marcy Gardner - Last Filed: 10/25/18 09:27> - Assessment (1) End-stage renal disease on hemodialysis Code(s): N18.6 - End stage renal disease; Z99.2 - Dependence on renal dialysis Status: Acute Plan: Patient seen and examined, agree with above. HD done, for Biopsy of lung nodule on Saturday. (2) Pneumonia Code(s): J18.9 - Pneumonia, unspecified organism Status: Acute (3) COPD (chronic obstructive pulmonary disease) Code(s): J44.9 - Chronic obstructive pulmonary disease, unspecified Status: Acute (4) Hypertension Code(s): I10 - Essential (primary) hypertension Status: Acute (5) Lung mass Code(s): R91.8 - Other nonspecific abnormal finding of lung field Status: Acute <Juan Green - Last Filed: 10/25/18 20:54>
[2018-10-25] MEDS: Heparin 10,000 UNITS/10 ML Vial (for IV use) OTHER PRN (10:40)
[2018-10-25] MEDS: predniSONE 10 MG Tablet PO SCH (11:23)
[2018-10-25] MEDS: Vitamin B Complex/Vit C/Folic Tablet PO SCH (11:24)
[2018-10-25] MEDS: Senna/Docusate Sodium 8.6/50 MG Tablet PO SCH (11:24)
[2018-10-25] MEDS: Pregabalin 25 MG Capsule PO SCH ×3 (11:24→18:40)
[2018-10-25] MEDS: guaiFENesin 600 MG ER Tablet PO SCH (11:24)
[2018-10-25] MEDS: Budesonide-Formoterol 160/4.5 MCG 6 GM Inhaler INH SCH (11:30)
--- NOTE | 2018-10-25 13:05 | P.PNFP ---
Subjective Interval history: He was seen and examined on dialysis. He is comfortable and without complaints today. Results - Labs Result diagrams: 10/24/18 09:36 10/24/18 05:31 Physical Exam Vital signs: Vital Signs 10/24/18 15:43 10/24/18 15:44 10/24/18 16:00 Temperature 98.5 F Pulse Rate 115 H 91 H Respiratory Rate 18 20 Blood Pressure 110/66 Pulse Oximetry 100 100 10/24/18 20:00 10/24/18 21:37 10/25/18 00:00 Temperature 97.6 F 97.6 F Pulse Rate 81 81 96 H Respiratory Rate 20 20 20 Blood Pressure 92/50 L 93/53 L Pulse Oximetry 97 97 10/25/18 04:00 10/25/18 08:00 Temperature 98.6 F 98.5 F Pulse Rate 99 H 114 H Respiratory Rate 20 20 Blood Pressure 94/53 L 131/64 Pulse Oximetry 95 94 L Intake & Output 10/24/18 10/25/18 10/25/18 18:59 06:59 18:59 Intake Total 480 / 480 Output Total 1000 / 1000 Balance 480 / 480 -1000 / -1000 Weight 53 kg Intake: Oral 480 / 480 Output: Hemodialysis Amount 1000 / 1000 Other: # Voids 1 # Incontinent Voids 2 # Bowel Movements 1 # Incontinent Bowel Movements 1 - Constitutional no acute distress - Routine HEENT Exam Head: Present: normocephalic Eye: Present: PERRL ENT: Present: mucous membranes moist - Routine Neck Exam Present: supple - Routine Respiratory Exam Present: decreased breath sounds - Routine Cardiovascular Exam Present: RRR - Routine Abdominal Exam Present: soft, normoactive bowel sounds - Routine Extremities Exam Present: full ROM - Routine Skin Exam Present: intact - Routine Neurological Exam Present: alert, oriented X3 - Detailed Neurological Exam: Coma Scale Eye Opening: Spontaneous Verbal Response: Oriented Motor Response: Obey commands [place] Coma Scale Total: 15 - Routine Psychiatric Exam Present: normal affect Assessment and Plan - Assessment (1) Pneumonia Code(s): J18.9 - Pneumonia, unspecified organism Status: Acute Plan: Pulmonary consult, Bronchodilators, Oxygen supplement, Rocephin IV. He tells me he is for bx of lung nodule on Saturday. (2) End stage renal disease Code(s): N18.6 - End stage renal disease Status: Acute Plan: HD T//Sat (3) Lung nodule Code(s): R91.1 - Solitary pulmonary nodule Status: Acute Onset Date: ~ Plan: CT Guided Biopsy Saturday. (4) Hypertension Code(s): I10 - Essential (primary) hypertension Status: Resolved Plan: Cont home med's (5) Anemia of renal disease Code(s): D63.1 - Anemia in chronic kidney disease Status: Acute Plan: Monitor CBC (6) Hypertension Code(s): I10 - Essential (primary) hypertension Status: Acute - Assessment and Plan 10/25/18 - He was seen and examined in dialysis. He remains on IV antibiotics and apparently is to have a bx of the suspicious lung nodule on Saturday. Will cont thrice weekly dialysis and IV antibiotics. (4) Hypertension Qualifiers:
[2018-10-25] MEDS: Latanoprost 0.005% Opth Drops 2.5 ML Bottle EACH EYE SCH (19:56)
[2018-10-26] MEDS: Senna/Docusate Sodium 8.6/50 MG Tablet PO SCH ×3 (00:13→21:51)
[2018-10-26] MEDS: guaiFENesin 600 MG ER Tablet PO SCH ×3 (00:13→21:51)
[2018-10-26] MEDS: Latanoprost 0.005% Opth Drops 2.5 ML Bottle EACH EYE SCH ×2 (00:15→17:46)
[2018-10-26] MEDS: Budesonide-Formoterol 160/4.5 MCG 6 GM Inhaler INH SCH ×3 (00:16→21:51)
[2018-10-26] MEDS: LORazepam 0.5 MG Tablet PO PRN ×2 (00:38→10:12)
[2018-10-26] MEDS: Pregabalin 25 MG Capsule PO SCH ×3 (09:53→17:37)
[2018-10-26] MEDS: predniSONE 10 MG Tablet PO SCH (09:53)
[2018-10-26] MEDS: Vitamin B Complex/Vit C/Folic Tablet PO SCH (09:53)
[2018-10-26 10:01] LABS: Albumin 2.7 g/dL (3.4-5.0); Calcium 9.3 mg/dL (8.5-10.1); Carbon Dioxide 30.5 meq/L (21.0-32.0); Phosphorus 4.8 mg/dL (2.5-4.9); Potassium 3.8 meq/L (3.5-5.1)
--- NOTE | 2018-10-26 11:00 | P.PNNP ---
Subjective Interval history: Eating breakfast, in good spirits. Denies any shortness of breath, chest pain, nausea, or vomiting. Continues to have cough. HD yesterday tolerated well. <Marcy Gardner - Last Filed: 10/26/18 10:57> Physical Exam Vital signs: Vital Signs 10/25/18 15:45 10/25/18 16:00 10/25/18 20:00 Temperature 98.2 F 98.2 F Pulse Rate 116 H 100 H 81 Respiratory Rate 19 20 16 Blood Pressure 91/56 L 97/56 L Pulse Oximetry 100 100 10/25/18 21:56 10/26/18 00:00 10/26/18 04:00 Temperature 98.1 F 97.2 F L Pulse Rate 87 84 Respiratory Rate 16 14 Blood Pressure 100/53 L 95/61 L Pulse Oximetry 97 99 99 10/26/18 08:00 Temperature 98.2 F Pulse Rate 85 Respiratory Rate 14 Blood Pressure 92/55 L Pulse Oximetry 98 Intake & Output 10/25/18 10/26/18 10/26/18 18:59 06:59 18:59 Intake Total 480 / 480 580 / 580 Output Total 1000 / 1000 100 / 100 Balance -520 / -520 480 / 480 Weight 51.6 kg Intake: IV 100 / 100 Rocephin Inj 1,000 MG In NS Inj 100 / 100 100 ML @ 200 mls/hr IV.SIG Q24H [facility] Rx#:[id number] Oral 480 / 480 480 / 480 Output: Urine 100 / 100 Hemodialysis Amount 1000 / 1000 Other: # Voids 1 # Incontinent Voids 3 # Bowel Movements 1 # Incontinent Bowel Movements 2 Narrative: GENERAL: Frail, Alert and oriented. SKIN: Warm and dry. NECK: Trachea midline. No JVD. CARDIOVASCULAR: Regular rate and rhythm. Right IJ permacath. RESPIRATORY: No accessory muscle use. Breath sounds are diminished. GASTROINTESTINAL: Abdomen soft, non-tender, nondistended. MUSCULOSKELETAL: Extremities without clubbing, cyanosis, or edema. Generalized weakness. PSYCHIATRIC: Appropriate mood and affect. <Marcy Gardner - Last Filed: 10/26/18 10:57> Vital signs: Vital Signs 10/25/18 21:56 10/26/18 00:00 10/26/18 04:00 Temperature 98.1 F 97.2 F L Pulse Rate 87 84 Respiratory Rate 16 14 Blood Pressure 100/53 L 95/61 L Pulse Oximetry 97 99 99 10/26/18 08:00 10/26/18 12:56 10/26/18 14:18 Temperature 98.2 F 97.7 F Pulse Rate 85 92 H Respiratory Rate 14 16 18 Blood Pressure 92/55 L 93/50 L Pulse Oximetry 98 98 10/26/18 16:21 10/26/18 20:00 10/26/18 20:32 Temperature 97.8 F 98.1 F Pulse Rate 93 H 89 93 H Respiratory Rate 18 18 18 Blood Pressure 129/74 96/52 L Pulse Oximetry 98 97 Intake & Output 10/26/18 10/26/18 10/27/18 06:59 18:59 06:59 Intake Total 580 / 580 Output Total 100 / 100 Balance 480 / 480 Weight 51.6 kg Intake: IV 100 / 100 Rocephin Inj 1,000 MG In NS Inj 100 / 100 100 ML @ 200 mls/hr IV.SIG Q24H [facility] Rx#:[id number] Oral 480 / 480 Output: Urine 100 / 100 Other: Date of Last Bowel Movement 10/26/18 <Juan Green - Last Filed: 10/26/18 21:41> Assessment and Plan - Assessment (1) End-stage renal disease on hemodialysis Code(s): N18.6 - End stage renal disease; Z99.2 - Dependence on renal dialysis Status: Acute Plan: Patient with end stage renal disease on HD on Saturday, , Saturday Avoid IVF administration Epogen with dialysis HD yesterday with UF of 1 liter (2) Pneumonia Code(s): J18.9 - Pneumonia, unspecified organism Status: Acute Plan: On antibiotics. (3) COPD (chronic obstructive pulmonary disease) Code(s): J44.9 - Chronic obstructive pulmonary disease, unspecified Status: Acute Plan: On breathing treatment and steroids. Followed by Pulmonary (4) Hypertension Code(s): I10 - Essential (primary) hypertension Status: Acute Plan: Blood pressure has been on lower side, will discontinue losartan for now. (5) Lung mass Code(s): R91.8 - Other nonspecific abnormal finding of lung field Status: Acute Plan: Left upper lung nodule and increasing size. Seen by Pulmonary, Biopsy planned for tomorrow <Marcy Gardner - Last Filed: 10/26/18 10:57> - Assessment (1) End-stage renal disease on hemodialysis Code(s): N18.6 - End stage renal disease; Z99.2 - Dependence on renal dialysis Status: Acute Plan: Patient seen and examined, agree with above. Continue HD as per schedule. Patient is refusing Lung mass Biopsy, Pulmonary following, Biopsy tomorrow if patient agree. (2) Pneumonia Code(s): J18.9 - Pneumonia, unspecified organism Status: Acute (3) COPD (chronic obstructive pulmonary disease) Code(s): J44.9 - Chronic obstructive pulmonary disease, unspecified Status: Acute (4) Hypertension Code(s): I10 - Essential (primary) hypertension Status: Acute (5) Lung mass Code(s): R91.8 - Other nonspecific abnormal finding of lung field Status: Acute <Juan Green - Last Filed: 10/26/18 21:41>
--- NOTE | 2018-10-26 11:37 | P.PNFP ---
Subjective Interval history: He is in his room and resting comfortable. He is anxious about the lung biopsy tomorrow. Results - Labs Result diagrams: 10/24/18 09:36 10/26/18 09:24 Abnormal lab results 10/26/18 Range/Units 09:24 BUN 33 H (7-18) mg/dL Creatinine 4.79 H (0.60-1.30) mg/dL Estimated GFR 14 L (>89) mL/min Albumin 2.7 L (3.4-5.0) g/dL BMP 10/26/18 09:24 Sodium 141 Potassium 3.8 Chloride 102 Carbon Dioxide 30.5 BUN 33 H Creatinine 4.79 H Calcium 9.3 Liver Function 10/26/18 Range/Units 09:24 Albumin 2.7 L (3.4-5.0) g/dL Physical Exam Vital signs: Vital Signs 10/25/18 15:45 10/25/18 16:00 10/25/18 20:00 Temperature 98.2 F 98.2 F Pulse Rate 116 H 100 H 81 Respiratory Rate 19 20 16 Blood Pressure 91/56 L 97/56 L Pulse Oximetry 100 100 10/25/18 21:56 10/26/18 00:00 10/26/18 04:00 Temperature 98.1 F 97.2 F L Pulse Rate 87 84 Respiratory Rate 16 14 Blood Pressure 100/53 L 95/61 L Pulse Oximetry 97 99 99 10/26/18 08:00 Temperature 98.2 F Pulse Rate 85 Respiratory Rate 14 Blood Pressure 92/55 L Pulse Oximetry 98 Intake & Output 10/25/18 10/26/18 10/26/18 18:59 06:59 18:59 Intake Total 480 / 480 580 / 580 Output Total 1000 / 1000 100 / 100 Balance -520 / -520 480 / 480 Weight 51.6 kg Intake: IV 100 / 100 Rocephin Inj 1,000 MG In NS Inj 100 / 100 100 ML @ 200 mls/hr IV.SIG Q24H [facility] Rx#:[id number] Oral 480 / 480 480 / 480 Output: Urine 100 / 100 Hemodialysis Amount 1000 / 1000 Other: # Voids 1 # Incontinent Voids 3 # Bowel Movements 1 # Incontinent Bowel Movements 2 - Constitutional no acute distress - Routine HEENT Exam Head: Present: normocephalic Eye: Present: PERRL, normal accommodation ENT: Present: mucous membranes moist - Routine Neck Exam Present: supple, full ROM - Routine Respiratory Exam Present: wheezes, distant breath sounds - Routine Cardiovascular Exam Present: RRR - Routine Abdominal Exam Present: soft, normoactive bowel sounds - Routine Extremities Exam Present: full ROM - Routine Skin Exam Present: intact - Routine Neurological Exam Present: alert, oriented X3 - Detailed Neurological Exam: Coma Scale Eye Opening: Spontaneous Verbal Response: Oriented Motor Response: Obey commands [place] Coma Scale Total: 15 - Routine Psychiatric Exam Present: normal affect Assessment and Plan - Assessment (1) Pneumonia Code(s): J18.9 - Pneumonia, unspecified organism Status: Acute Plan: Pulmonary following, on Bronchodilators with Oxygen supplement and Rocephin IV. He tells me he is for bx of lung nodule on Saturday. (2) End stage renal disease Code(s): N18.6 - End stage renal disease Status: Acute Plan: HD T//Sat (3) Lung nodule Code(s): R91.1 - Solitary pulmonary nodule Status: Acute Onset Date: ~ Plan: CT Guided Biopsy Saturday. (4) Hypertension Code(s): I10 - Essential (primary) hypertension Status: Resolved Plan: Controlled on home med's (5) Anemia of renal disease Code(s): D63.1 - Anemia in chronic kidney disease Status: Acute Plan: Monitor CBC. [facility] with dialysis (6) Hypertension Code(s): I10 - Essential (primary) hypertension Status: Acute - Assessment and Plan 10/25/18 - He was seen and examined in dialysis. He remains on IV antibiotics and apparently is to have a bx of the suspicious lung nodule on Saturday. Will cont thrice weekly dialysis and IV antibiotics. 10/26/18 - He is lying flat in bed and is comfortable at this time. He cont to have mild expiratory wheezes and Pulm is following. He is for a CT Guided lung nodule BX tomorrow. I have reordered labs for the AM including an INR. Cont antibiotics for PNA and F/U Pulm recommendations and Bx results. (4) Hypertension Qualifiers:
[2018-10-27 08:44] LABS: Baso # (Auto) 0.1 th/mm3 (0.0-0.2); Baso % (Auto) 1.1 % (0.0-2.0); Eos # (Auto) 0.5 th/mm3 (0.0-0.4); Eos % (Auto) 8.9 % (0.0-4.0); Hematocrit 25.9 % (39.0-51.0); Hemoglobin 8.2 gm/dL (13.0-17.0); Lymph # (Auto) 0.8 th/mm3 (1.0-4.8); Lymph % (Auto) 13.7 % (9.0-44.0); Mean Corpuscular HGB Conc 31.6 % (32.0-36.0); Mean Corpuscular Hemoglobin 28.3 pg (27.0-34.0); Mean Corpuscular Volume 89.5 fL (80.0-100.0); Mean Platelet Volume 7.8 fL (7.0-11.0); Mono # (Auto) 0.7 th/mm3 (0.0-0.9); Mono % (Auto) 12.6 % (0.0-8.0); Neut # (Auto) 3.8 th/mm3 (1.8-7.7); Neut % (Auto) 63.7 % (16.0-70.0); Platelet Count 335 th/mm3 (150-450)
[2018-10-27 09:00] LABS: Prothrombin Time 10.5 sec (9.8-11.6)
[2018-10-27 09:12] LABS: Calcium 8.9 mg/dL (8.5-10.1); Carbon Dioxide 31.2 meq/L (21.0-32.0); Potassium 3.7 meq/L (3.5-5.1)
[2018-10-27] MEDS: LORazepam 0.5 MG Tablet PO PRN (09:58)
[2018-10-27] MEDS: predniSONE 10 MG Tablet PO SCH (09:58)
[2018-10-27] MEDS: Vitamin B Complex/Vit C/Folic Tablet PO SCH (09:59)
[2018-10-27] MEDS: Pregabalin 25 MG Capsule PO SCH ×3 (09:59→18:27)
[2018-10-27] MEDS: Senna/Docusate Sodium 8.6/50 MG Tablet PO SCH ×2 (10:03→20:01)
[2018-10-27] MEDS: Budesonide-Formoterol 160/4.5 MCG 6 GM Inhaler INH SCH ×2 (10:03→20:02)
[2018-10-27] MEDS: guaiFENesin 600 MG ER Tablet PO SCH ×2 (12:06→23:10)
--- NOTE | 2018-10-27 12:07 | P.PNFP ---
Subjective Interval history: Delayed entry, seen this am He is resting, slept well Denies Cp, SOB is at baseline He is inquiring about biopsy scheduled for today Results - Labs Result diagrams: 10/27/18 08:14 10/27/18 08:14 Abnormal lab results 10/27/18 10/27/18 Range/Units 08:14 08:14 RBC 2.90 L (4.50-5.90) mil/mm3 Hgb 8.2 L (13.0-17.0) gm/dL Hct 25.9 L (39.0-51.0) % MCHC 31.6 L (32.0-36.0) % RDW 21.0 H (11.6-17.2) % [place] % (Auto) 12.6 H (0.0-8.0) % Eos % (Auto) 8.9 H (0.0-4.0) % Lymph # (Auto) 0.8 L (1.0-4.8) th/mm3 Eos # (Auto) 0.5 H (0.0-0.4) th/mm3 BUN 47 H (7-18) mg/dL Creatinine 5.61 H (0.60-1.30) mg/dL Estimated GFR 12 L (>89) mL/min Short CBC 10/27/18 Range/Units 08:14 WBC 6.0 (4.0-11.0) th/mm3 Hgb 8.2 L (13.0-17.0) gm/dL Hct 25.9 L (39.0-51.0) % Plt Count 335 (150-450) th/mm3 BMP 10/27/18 08:14 Sodium 142 Potassium 3.7 Chloride 105 Carbon Dioxide 31.2 BUN 47 H Creatinine 5.61 H Calcium 8.9 Physical Exam Vital signs: Vital Signs 10/26/18 12:56 10/26/18 14:18 10/26/18 16:21 Temperature 97.7 F 97.8 F Pulse Rate 92 H 93 H Respiratory Rate 16 18 18 Blood Pressure 93/50 L 129/74 Pulse Oximetry 98 98 10/26/18 20:00 10/26/18 20:32 10/27/18 00:00 Temperature 98.1 F 98.3 F Pulse Rate 89 93 H 89 Respiratory Rate 18 18 18 Blood Pressure 96/52 L 121/62 Pulse Oximetry 97 95 12/17/18 04:00 10/27/18 08:00 10/27/18 10:37 Temperature 98.2 F 98.4 F Pulse Rate 90 115 H Respiratory Rate 18 16 Blood Pressure 121/70 108/61 Pulse Oximetry 97 97 96 Intake & Output 10/26/18 10/27/18 10/27/18 18:59 06:59 18:59 Intake Total 100 / 100 Output Total 150 / 150 Balance -50 / -50 Intake: IV 100 / 100 Rocephin Inj 1,000 MG In NS Inj 100 / 100 100 ML @ 200 mls/hr IV.SIG Q24H [facility] Rx#:[id number] Output: Urine 150 / 150 Other: Date of Last Bowel Movement 10/26/18 10/26/18 Assessment and Plan - Assessment (1) Pneumonia Code(s): J18.9 - Pneumonia, unspecified organism Status: Acute Plan: Pulmonary following, on Bronchodilators with Oxygen supplement and Rocephin IV. He tells me he is for bx of lung nodule on Saturday. (2) End stage renal disease Code(s): N18.6 - End stage renal disease Status: Acute Plan: HD T//Sat (3) Lung nodule Code(s): R91.1 - Solitary pulmonary nodule Status: Acute Onset Date: ~ Plan: CT Guided Biopsy scheduled for today (4) Hypertension Code(s): I10 - Essential (primary) hypertension Status: Resolved Plan: Controlled on home med's (5) Anemia of renal disease Code(s): D63.1 - Anemia in chronic kidney disease Status: Acute Plan: Monitor CBC. [facility] with dialysis (6) Hypertension Code(s): I10 - Essential (primary) hypertension Status: Acute - Assessment and Plan 10/25/18 - He was seen and examined in dialysis. He remains on IV antibiotics and apparently is to have a bx of the suspicious lung nodule on Saturday. Will cont thrice weekly dialysis and IV antibiotics. 10/26/18 - He is lying flat in bed and is comfortable at this time. He cont to have mild expiratory wheezes and Pulm is following. He is for a CT Guided lung nodule BX tomorrow. I have reordered labs for the AM including an INR. Cont antibiotics for PNA and F/U Pulm recommendations and Bx results. 10/27/18- See this am, he denies any complaints, No Cp, Palpations, sat's are maintained on 3 liters. He is pleased with dialysis time change. He is scheduled for biopsy later today. He is inquiring about DC. He cont on IV antibiotics and bronchodilators for PNA. Will order PT activity. He is afebrile, VSS. Dialysis on /Sat DC back to SNF once cleared with pulmonary. (4) Hypertension Qualifiers:
--- NOTE | 2018-10-27 14:57 | P.PNNP ---
Subjective Interval history: Seen in Morning. No acute events overnight. Plan for lung biopsy. Hemodialysis tomorrow. <Marcy Gardner - Last Filed: 10/27/18 14:54> Physical Exam Vital signs: Vital Signs 10/26/18 16:21 10/26/18 20:00 10/26/18 20:32 Temperature 97.8 F 98.1 F Pulse Rate 93 H 89 93 H Respiratory Rate 18 18 18 Blood Pressure 129/74 96/52 L Pulse Oximetry 98 97 10/27/18 00:00 10/27/18 04:00 10/27/18 08:00 Temperature 98.3 F 98.2 F 98.4 F Pulse Rate 89 90 115 H Respiratory Rate 18 18 16 Blood Pressure 121/62 121/70 108/61 Pulse Oximetry 95 97 97 10/27/18 10:37 10/27/18 12:00 Temperature 98.2 F Pulse Rate 111 H Respiratory Rate 20 Blood Pressure 112/57 L Pulse Oximetry 96 96 Intake & Output 10/26/18 10/27/18 10/27/18 18:59 06:59 18:59 Intake Total 100 / 100 Output Total 150 / 150 Balance -50 / -50 Intake: IV 100 / 100 Rocephin Inj 1,000 MG In NS Inj 100 / 100 100 ML @ 200 mls/hr IV.SIG Q24H COUNT INCLUDES THE [facility] Rx#:[id number] Output: Urine 150 / 150 Other: Date of Last Bowel Movement 10/26/18 10/26/18 Narrative: GENERAL: Frail, Alert and oriented. SKIN: Warm and dry. NECK: Trachea midline. No JVD. CARDIOVASCULAR: Regular rate and rhythm. Right IJ permacath. RESPIRATORY: No accessory muscle use. Breath sounds are diminished. GASTROINTESTINAL: Abdomen soft, non-tender, nondistended. MUSCULOSKELETAL: Extremities without clubbing, cyanosis, or edema. Generalized weakness. PSYCHIATRIC: Appropriate mood and affect. <Marcy Gardner - Last Filed: 10/27/18 14:54> Vital signs: Vital Signs 10/27/18 00:00 10/27/18 04:00 10/27/18 08:00 Temperature 98.3 F 98.2 F 98.4 F Pulse Rate 89 90 115 H Respiratory Rate 18 18 16 Blood Pressure 121/62 121/70 108/61 Pulse Oximetry 95 97 97 10/27/18 10:37 10/27/18 12:00 10/27/18 15:54 Temperature 98.2 F Pulse Rate 111 H 87 Respiratory Rate 20 18 Blood Pressure 112/57 L Pulse Oximetry 96 96 98 10/27/18 16:00 10/27/18 19:53 10/27/18 19:54 Temperature 98.2 F Pulse Rate 87 Respiratory Rate 22 Blood Pressure 119/58 L Pulse Oximetry 100 96 96 Intake & Output 10/27/18 10/27/18 10/28/18 06:59 18:59 06:59 Intake Total 100 / 100 Output Total 150 / 150 Balance -50 / -50 Intake: IV 100 / 100 Rocephin Inj 1,000 MG In NS Inj 100 / 100 100 ML @ 200 mls/hr IV.SIG Q24H [facility] Rx#:[id number] Output: Urine 150 / 150 Other: Date of Last Bowel Movement 10/26/18 10/26/18 10/26/18 <Juan Green - Last Filed: 10/27/18 21:21> Assessment and Plan - Assessment (1) End-stage renal disease on hemodialysis Code(s): N18.6 - End stage renal disease; Z99.2 - Dependence on renal dialysis Status: Acute Plan: Patient with end stage renal disease on HD on Saturday, , Saturday Avoid IVF administration and gadolinium Epogen with dialysis HD planned for tomorrow. (2) Pneumonia Code(s): J18.9 - Pneumonia, unspecified organism Status: Acute Plan: On antibiotics. (3) COPD (chronic obstructive pulmonary disease) Code(s): J44.9 - Chronic obstructive pulmonary disease, unspecified Status: Acute Plan: On breathing treatment and steroids. Followed by Pulmonary (4) Hypertension Code(s): I10 - Essential (primary) hypertension Status: Acute Plan: Blood pressure is better controlled, continue to monitor (5) Lung mass Code(s): R91.8 - Other nonspecific abnormal finding of lung field Status: Acute Plan: Left upper lung nodule and increasing size. Seen by Pulmonary, Biopsy planned <Marcy Gadrner - Last Filed: 10/27/18 14:54> - Assessment (1) End-stage renal disease on hemodialysis Code(s): N18.6 - End stage renal disease; Z99.2 - Dependence on renal dialysis Status: Acute Plan: Patient seen and examined, agree with above. HD will be in AM. Possible Lung mass Biopsy. (2) Pneumonia Code(s): J18.9 - Pneumonia, unspecified organism Status: Acute (3) COPD (chronic obstructive pulmonary disease) Code(s): J44.9 - Chronic obstructive pulmonary disease, unspecified Status: Acute (4) Hypertension Code(s): I10 - Essential (primary) hypertension Status: Acute (5) Lung mass Code(s): R91.8 - Other nonspecific abnormal finding of lung field Status: Acute <Juan Green - Last Filed: 10/27/18 21:21>
[2018-10-27] MEDS: Latanoprost 0.005% Opth Drops 2.5 ML Bottle EACH EYE SCH (18:27)
--- NOTE | 2018-10-27 19:35 | P.PN ---
Subjective Interval history: Alert and breathing better. Will go for lung biopsy today. No chest pains . Physical Exam Vital signs: Vital Signs 10/26/18 20:00 10/26/18 20:32 10/27/18 00:00 Temperature 98.1 F 98.3 F Pulse Rate 89 93 H 89 Respiratory Rate 18 18 18 Blood Pressure 96/52 L 121/62 Pulse Oximetry 97 95 10/27/18 04:00 10/27/18 08:00 10/27/18 10:37 Temperature 98.2 F 98.4 F Pulse Rate 90 115 H Respiratory Rate 18 16 Blood Pressure 121/70 108/61 Pulse Oximetry 97 97 96 10/27/18 12:00 10/27/18 15:54 10/27/18 16:00 Temperature 98.2 F 98.2 F Pulse Rate 111 H 87 87 Respiratory Rate 20 18 22 Blood Pressure 112/57 L 119/58 L Pulse Oximetry 96 98 100 Intake & Output 10/27/18 10/27/18 10/28/18 06:59 18:59 06:59 Intake Total 100 / 100 Output Total 150 / 150 Balance -50 / -50 Intake: IV 100 / 100 Rocephin Inj 1,000 MG In NS Inj 100 / 100 100 ML @ 200 mls/hr IV.SIG Q24H [facility] Rx#:[id number] Output: Urine 150 / 150 Other: Date of Last Bowel Movement 10/26/18 10/26/18 Narrative: GENERAL: Frail, Alert and oriented. SKIN: Warm and dry.Pallor + NECK: Trachea midline. No JVD. CARDIOVASCULAR: Regular rate and rhythm. Right IJ perma cath. RESPIRATORY: No accessory muscle use.Occ Wheeze +. Breath sounds are diminished. GASTROINTESTINAL: Abdomen soft, non-tender, nondistended. MUSCULOSKELETAL: Extremities without clubbing, cyanosis, or edema. Generalized weakness. PSYCHIATRIC: Appropriate mood and affect. Results - Labs CBC & Chem 7: 10/27/18 08:14 10/27/18 08:14 Laboratory Results - last 24 hr 10/27/18 10/27/18 10/27/18 08:14 08:14 08:14 WBC 6.0 RBC 2.90 L Hgb 8.2 L Hct 25.9 L MCV 89.5 MCH 28.3 MCHC 31.6 L RDW 21.0 H Plt Count 335 MPV 7.8 Neut % (Auto) 63.7 Lymph % (Auto) 13.7 [place] % (Auto) 12.6 H Eos % (Auto) 8.9 H Baso % (Auto) 1.1 Neut # (Auto) 3.8 Lymph # (Auto) 0.8 L [place] # (Auto) 0.7 Eos # (Auto) 0.5 H Baso # (Auto) 0.1 WBC Differential . Differential Comment Auto diff final PT 10.5 INR 1.0 Sodium 142 Potassium 3.7 Chloride 105 Carbon Dioxide 31.2 Anion Gap 6 BUN 47 H Creatinine 5.61 H Estimated GFR 12 L Random Glucose 91 Calcium 8.9 Microbiology 10/23/18 07:05 Blood - Peripheral Aerobic Blood Culture - Preliminary No growth in 4 days 10/23/18 07:05 Blood - Peripheral Anaerobic Blood Culture - Preliminary No growth in 4 days 10/23/18 07:00 Blood - Peripheral Aerobic Blood Culture - Preliminary No growth in 4 days 10/23/18 07:00 Blood - Peripheral Anaerobic Blood Culture - Preliminary No growth in 4 days Assessment and Plan - Assessment (1) Acute kidney failure Code(s): N17.9 - Acute kidney failure, unspecified Status: Acute Onset Date : ~05/22/18 (2) Hydronephrosis Code(s): N13.30 - Unspecified hydronephrosis Status: Acute Onset Date: ~10/28 (3) Acute exacerbation of COPD with asthma Code(s): J44.1 - Chronic obstructive pulmonary disease with (acute) exacerbation ; J45.901 - Unspecified asthma with (acute) exacerbation Status: Resolved Onset Date: ~05/22/18 (4) Weakness Code(s): R53.1 - Weakness Status: Acute (5) Lung nodule Code(s): R91.1 - Solitary pulmonary nodule Status: Acute Onset Date: ~ (6) Obstructive uropathy Code(s): N13.9 - Obstructive and reflux uropathy, unspecified Status: Chronic (7) Vitamin D deficiency Code(s): E55.9 - Vitamin D deficiency, unspecified Status: Acute (8) Hypertension Code(s): I10 - Essential (primary) hypertension Status: Resolved - Plan 1. Cont on o2 2 L. 2. IR to do Biopsy of left lung nodule 3. Duonebs qid. 4. Continue antibiotics and switch to PO 5. CBC BMP ,CXR in am 6. Continue Symbicort , 2 puffs BID (1) Acute kidney failure Qualifiers: Acute renal failure type: with other specified pathological lesion Qualified Code(s): N17.8 - Other acute kidney failure (2) Hydronephrosis Qualifiers: Hydronephrosis type: other Qualified Code(s): N13.39 - Other hydronephrosis (8) Hypertension Qualifiers:
[2018-10-28] MEDS: Budesonide-Formoterol 160/4.5 MCG 6 GM Inhaler INH SCH ×2 (08:13→21:55)
[2018-10-28] MEDS: Pregabalin 25 MG Capsule PO SCH ×3 (08:13→17:13)
[2018-10-28] MEDS: predniSONE 10 MG Tablet PO SCH (08:13)
[2018-10-28] MEDS: Vitamin B Complex/Vit C/Folic Tablet PO SCH (08:13)
[2018-10-28] MEDS: Senna/Docusate Sodium 8.6/50 MG Tablet PO SCH ×2 (08:13→20:05)
[2018-10-28] MEDS: Heparin 10,000 UNITS/10 ML Vial (for IV use) OTHER PRN (10:48)
--- NOTE | 2018-10-28 11:54 | P.PNFP ---
Subjective Interval history: Off floor for Dilaysis / lung biopsy Results - Labs Result diagrams: 10/27/18 08:14 10/27/18 08:14 Physical Exam Vital signs: Vital Signs 10/27/18 12:00 10/27/18 15:54 10/27/18 16:00 Temperature 98.2 F 98.2 F Pulse Rate 111 H 87 87 Respiratory Rate 20 18 22 Blood Pressure 112/57 L 119/58 L Pulse Oximetry 96 98 100 10/27/18 19:53 10/27/18 19:54 10/27/18 20:00 Temperature 98.4 F Pulse Rate 87 Respiratory Rate 20 Blood Pressure 93/70 L Pulse Oximetry 96 96 96 10/28/18 00:00 10/28/18 04:00 Temperature 98.9 F 98.7 F Pulse Rate 107 H 89 Respiratory Rate 20 20 Blood Pressure 136/75 129/69 Pulse Oximetry 99 98 Intake & Output 10/27/18 10/28/18 10/28/18 18:59 06:59 18:59 Output Total 1999 Balance -1999 Output: Hemodialysis Amount 1999 Other: Date of Last Bowel Movement 10/26/18 10/26/18 - Constitutional Comments: Off ,floor Assessment and Plan - Assessment (1) Pneumonia Code(s): J18.9 - Pneumonia, unspecified organism Status: Acute Plan: Pulmonary following, on Bronchodilators with Oxygen supplement and Rocephin IV. He tells me he is for bx of lung nodule on Saturday. (2) End stage renal disease Code(s): N18.6 - End stage renal disease Status: Acute Plan: HD //Sat (3) Lung nodule Code(s): R91.1 - Solitary pulmonary nodule Status: Acute Onset Date: ~ Plan: CT Guided Biopsy scheduled for today (4) Hypertension Code(s): I10 - Essential (primary) hypertension Status: Resolved Plan: Controlled on home med's (5) Anemia of renal disease Code(s): D63.1 - Anemia in chronic kidney disease Status: Acute Plan: Monitor CBC. MARITO with dialysis (6) Hypertension Code(s): I10 - Essential (primary) hypertension Status: Acute - Assessment and Plan 10/25/18 - He was seen and examined in dialysis. He remains on IV antibiotics and apparently is to have a bx of the suspicious lung nodule on Saturday. Will cont thrice weekly dialysis and IV antibiotics. 10/26/18 - He is lying flat in bed and is comfortable at this time. He cont to have mild expiratory wheezes and Pulm is following. He is for a CT Guided lung nodule BX tomorrow. I have reordered labs for the AM including an INR. Cont antibiotics for PNA and F/U Pulm recommendations and Bx results. 10/27/18- See this am, he denies any complaints, No Cp, Palpations, sat's are maintained on 3 liters. He is pleased with dialysis time change. He is scheduled for biopsy later today. He is inquiring about DC. He cont on IV antibiotics and bronchodilators for PNA. Will order PT activity. He is afebrile, VSS. Dialysis on /Sat DC back to SNF once cleared with pulmonary. - off floor for biopsy /dialysis (4) Hypertension Qualifiers:
[2018-10-28] MEDS: guaiFENesin 600 MG ER Tablet PO SCH ×2 (12:41→21:54)
--- NOTE | 2018-10-28 15:19 | P.PNNP ---
Subjective Interval history: Hemodialysis today, tolerated well. Per patient unable to do lung biopsy. <Marcy Gardner - Last Filed: 10/28/18 15:16> Physical Exam Vital signs: Vital Signs 10/27/18 15:54 10/27/18 16:00 10/27/18 19:53 Temperature 98.2 F Pulse Rate 87 87 Respiratory Rate 18 22 Blood Pressure 119/58 L Pulse Oximetry 98 100 96 10/27/18 19:54 10/27/18 20:00 10/28/18 00:00 Temperature 98.4 F 98.9 F Pulse Rate 87 107 H Respiratory Rate 20 20 Blood Pressure 93/70 L 136/75 Pulse Oximetry 96 96 99 10/28/18 04:00 10/28/18 08:00 10/28/18 12:00 Temperature 98.7 F 100.4 F H Pulse Rate 89 119 H Respiratory Rate 20 18 Blood Pressure 129/69 120/94 H Pulse Oximetry 98 93 L 97 Intake & Output 10/27/18 10/28/18 10/28/18 18:59 06:59 18:59 Output Total 1999 Balance -1999 Weight 51.6 kg Output: Hemodialysis Amount 1999 Other: Date of Last Bowel Movement 10/26/18 10/26/18 10/26/18 Narrative: GENERAL: Frail, Alert and oriented. SKIN: Warm and dry.Pallor + NECK: Trachea midline. No JVD. CARDIOVASCULAR: Regular rate and rhythm. Right IJ perma cath. RESPIRATORY: No accessory muscle use.Occ Wheeze +. Breath sounds are diminished. GASTROINTESTINAL: Abdomen soft, non-tender, nondistended. MUSCULOSKELETAL: Extremities without clubbing, cyanosis, or edema. Generalized weakness. PSYCHIATRIC: Appropriate mood and affect. <Marcy Gardner - Last Filed: 10/28/18 15:16> Vital signs: Vital Signs 10/28/18 00:00 10/28/18 04:00 10/28/18 08:00 Temperature 98.9 F 98.7 F Pulse Rate 107 H 89 Respiratory Rate 20 20 Blood Pressure 136/75 129/69 Pulse Oximetry 99 98 93 L 10/28/18 12:00 10/28/18 16:00 10/28/18 18:03 Temperature 100.4 F H 102.1 F H Pulse Rate 119 H 127 H Respiratory Rate 18 18 Blood Pressure 120/94 H 101/54 L Pulse Oximetry 97 96 96 10/28/18 20:00 10/28/18 20:11 Temperature 98.7 F Pulse Rate 94 H Respiratory Rate 22 Blood Pressure 97/54 L Pulse Oximetry 100 97 Intake & Output 10/28/18 10/28/18 10/29/18 06:59 18:59 06:59 Intake Total 375 / 375 Output Total 1999 Balance -1999 375 / 375 Weight 51.6 kg Intake: IV 375 / 375 NS Inj 1,000 ML @ 100 mls/hr IV 125 / 125 .SIG .Q10H [facility] Rx#:[id number] NS Inj 250 ML @ 250 mls/hr IV. 250 / 250 SIG ONCE ONE Rx#:[id number] Output: Hemodialysis Amount 1999 Other: # Voids 3 Date of Last Bowel Movement 10/26/18 10/26/18 10/28/18 # Bowel Movements 2 <Juan Green - Last Filed: 10/28/18 21:30> Assessment and Plan - Assessment (1) End-stage renal disease on hemodialysis Code(s): N18.6 - End stage renal disease; Z99.2 - Dependence on renal dialysis Status: Acute Plan: Patient with end stage renal disease on HD on Saturday, , Saturday Avoid IVF administration and gadolinium Epogen increased with dialysis HD today tolerated well with removal of 2 liters of fluid (2) Pneumonia Code(s): J18.9 - Pneumonia, unspecified organism Status: Acute Plan: On antibiotics. (3) COPD (chronic obstructive pulmonary disease) Code(s): J44.9 - Chronic obstructive pulmonary disease, unspecified Status: Acute Plan: On breathing treatment and steroids. Followed by Pulmonary (4) Hypertension Code(s): I10 - Essential (primary) hypertension Status: Acute Plan: Blood pressure is better controlled, continue to monitor (5) Lung mass Code(s): R91.8 - Other nonspecific abnormal finding of lung field Status: Acute Plan: Left upper lung nodule and increasing size. Seen by Pulmonary, Biopsy planned <Marcy Gardner - Last Filed: 10/28/18 15:16> - Assessment (1) End-stage renal disease on hemodialysis Code(s): N18.6 - End stage renal disease; Z99.2 - Dependence on renal dialysis Status: Acute Plan: Patient seen and examined, agree with above. HD done today, and 2 liters removed. (2) Pneumonia Code(s): J18.9 - Pneumonia, unspecified organism Status: Acute (3) COPD (chronic obstructive pulmonary disease) Code(s): J44.9 - Chronic obstructive pulmonary disease, unspecified Status: Acute (4) Hypertension Code(s): I10 - Essential (primary) hypertension Status: Acute (5) Lung mass Code(s): R91.8 - Other nonspecific abnormal finding of lung field Status: Acute <Juan Green - Last Filed: 10/28/18 21:30>
[2018-10-28] MEDS: Acetaminophen 325 MG Tablet PO PRN (17:13)
[2018-10-28] MEDS: Latanoprost 0.005% Opth Drops 2.5 ML Bottle EACH EYE SCH (17:14)
[2018-10-28] MEDS ORDERED: Sod Chloride 0.9% Inj 1,000 ML IV.SIG SCH (18:15)
--- NOTE | 2018-10-28 19:09 | P.PN ---
Subjective Interval history: was down for lung biopsy but was cancelled. No fever. Overall better. Had dialysis. Physical Exam Vital signs: Vital Signs 10/27/18 19:53 10/27/18 19:54 10/27/18 20:00 Temperature 98.4 F Pulse Rate 87 Respiratory Rate 20 Blood Pressure 93/70 L Pulse Oximetry 96 96 96 10/28/18 00:00 10/28/18 04:00 10/28/18 08:00 Temperature 98.9 F 98.7 F Pulse Rate 107 H 89 Respiratory Rate 20 20 Blood Pressure 136/75 129/69 Pulse Oximetry 99 98 93 L 10/28/18 12:00 10/28/18 16:00 10/28/18 18:03 Temperature 100.4 F H 102.1 F H Pulse Rate 119 H 127 H Respiratory Rate 18 18 Blood Pressure 120/94 H 101/54 L Pulse Oximetry 97 96 96 Intake & Output 10/28/18 10/28/18 10/29/18 06:59 18:59 06:59 Output Total 1999 Balance -1999 Weight 51.6 kg Output: Hemodialysis Amount 1999 Other: # Voids 3 Date of Last Bowel Movement 10/26/18 10/26/18 # Bowel Movements 2 Narrative: GENERAL: Elderly A/A male Frail, Alert and oriented. SKIN: Warm and dry.Pallor + NECK: Trachea midline. No JVD. CARDIOVASCULAR: Regular rate and rhythm. Right IJ perma cath. RESPIRATORY: No accessory muscle use.Occ Wheeze +. Breath sounds are diminished. GASTROINTESTINAL: Abdomen soft, non-tender, nondistended. MUSCULOSKELETAL: Extremities without clubbing, cyanosis, or edema. Generalized weakness. PSYCHIATRIC: Appropriate mood and affect. Results - Labs CBC & Chem 7: 10/27/18 08:14 10/27/18 08:14 Microbiology 10/23/18 07:05 Blood - Peripheral Aerobic Blood Culture - Final No growth in 5 days 10/23/18 07:05 Blood - Peripheral Anaerobic Blood Culture - Final No growth in 5 days 10/23/18 07:00 Blood - Peripheral Aerobic Blood Culture - Final No growth in 5 days 10/23/18 07:00 Blood - Peripheral Anaerobic Blood Culture - Final No growth in 5 days Assessment and Plan - Assessment (1) Acute kidney failure Code(s): N17.9 - Acute kidney failure, unspecified Status: Acute Onset Date : ~05/22/18 (2) Hydronephrosis Code(s): N13.30 - Unspecified hydronephrosis Status: Acute Onset Date: ~10/28 (3) Acute exacerbation of COPD with asthma Code(s): J44.1 - Chronic obstructive pulmonary disease with (acute) exacerbation ; J45.901 - Unspecified asthma with (acute) exacerbation Status: Resolved Onset Date: ~05/22/18 (4) Weakness Code(s): R53.1 - Weakness Status: Acute (5) Lung nodule Code(s): R91.1 - Solitary pulmonary nodule Status: Acute Onset Date: ~ (6) Obstructive uropathy Code(s): N13.9 - Obstructive and reflux uropathy, unspecified Status: Chronic (7) Vitamin D deficiency Code(s): E55.9 - Vitamin D deficiency, unspecified Status: Acute (8) Hypertension Code(s): I10 - Essential (primary) hypertension Status: Resolved - Plan 1. Cont on o2 2 L.N/C 2. IR to do Biopsy of left lung nodule 3. Duonebs qid. 4. Continue antibiotics PO 5. CBC BMP , in am 6. Continue Symbicort , 2 puffs BID (1) Acute kidney failure Qualifiers: Acute renal failure type: with other specified pathological lesion Qualified Code(s): N17.8 - Other acute kidney failure (2) Hydronephrosis Qualifiers: Hydronephrosis type: other Qualified Code(s): N13.39 - Other hydronephrosis (8) Hypertension Qualifiers:
[2018-10-28] MEDS ORDERED: Albumin Human 5% Inj 500 ML IV.SIG ONE (19:53)
[2018-10-28] MEDS ORDERED: Sod Chloride 0.9% Inj 1,000 ML IV.SIG ONE (19:54)
--- NOTE | 2018-10-28 19:55 | P.PNADD ---
Addendum to Inpatient Note Additional information: S: Chel Called. Residents responded. This is a 83-year-old male who was admitted on 10/23 for pneumonia and has chronic kidney disease with dialysis on Saturday, , and Saturday. Of note he was febrile at 16:00 today at 102.1 Fahrenheit. Patient went to dialysis today and was found to be hypotensive with blood pressure of 82/39. Patient stated in the room that he was feeling fine. Just felt "chilly". Was asking when he could get dinner. Complained of hunger. He denied any chest pain, shortness of breath, abdominal pain, problems with urination or defecation. O: Vitals: BP: 82/39, pulse: 95, pulse ox: 98% on 2 L NC. General: Cachectic appearing male, comfortably in bed, no acute distress. CVS: Regular rate and rhythm. No murmurs. Resp: Anterior auscultation. Clear bilaterally, no wheezes, rhonchi, or rales. Abdomen: Soft, non-distended, nontender to palpation. Extremities: Warm, well-perfused. A/P:83 year-old male with a past medical history of chronic kidney disease on dialysis admitted for pneumonia. Chel called due to hypotension status post dialysis. Patient asymptomatic. -Per primary team management: 250 mL Saline bolus, Lopressor drip, transfer to ICU. -Cytologist notified. -CBC, CMP, lactic acid ordered.
[2018-10-28] MEDS ORDERED: Sodium Chlor 0.9% Inj 250 ML IV.SIG ONE (20:00)
[2018-10-28] MEDS ORDERED: Hydrocortisone Sod Succinate 100 MG Vial IV.PUSH ONE (20:06)
[2018-10-28] MEDS ORDERED: Piperacil/Tazo 4.5 GM Premix 4.5 GM/100 ML BAG IV.SIG SCH (20:08)
[2018-10-28] MEDS ORDERED: Vancomycin Consult Pharmacy OTHER PRN (20:08)
--- NOTE | 2018-10-28 20:16 | P.CONCC ---
History of Present Illness Service: Critical care medicine Consult date: 10/28/18 Requesting Physician: Jocy Anguiano Reason for Consult: Hypotension Primary Care Provider: UNKNOWN Chief Complaint: right sided pain weaknes short of breath History of Present Illness: This is an 83-year-old AA male. Admission 10/23/2018. Date of consultation . Patient is a resident of [facility]. Past medical history includes end-stage renal disease on hemodialysis through a right IJ tunneled cuffed catheter which she is document has been noncompliant, BPH, chronic benzodiazepine use, COPD, left upper lobe lung nodule, anemia of chronic disease , BPH, peripheral neuropathy, squamous cell carcinoma/hypopharyngeal, history of tobacco and alcohol abuse. Patient is on chronic prednisone. Patient originally presented to [facility] 10/23/2018 under the service of Dr. Faulkner after the patient missed hemodialysis and was short of breath with volume overload. Today 10/28. Patient received hemodialysis which 2 L was taken off. Patient was down for a lung biopsy but is noted to be hypotensive. A rapid response team was notified. Patient was evaluated and received a 250 cc bolus due to blood pressure of 60/40. His blood pressure is currently 94/54. He does not appear septic. All laboratories and chest x-ray are pending at time of dictation. Review of Systems Constitutional: Denies anorexia, Denies body ache(s), Denies chills Eyes: Denies blind spots, Denies blurry vision, Denies bulging eyes Ears, Nose, Mouth, and Throat: Denies abnormal hearing, Denies bleeding gums Cardiovascular: Reports shortness of breath with activity, Denies chest pain, Denies shortness of breath, Denies shortness of breath when lying down Respiratory: Reports change in phlegm color, Reports cough, Denies chest congestion Gastrointestinal: Denies abdominal pain, Denies nausea, Denies vomiting Genitourinary: Denies urinary frequency, Denies urinary hesitancy Musculoskeletal: Denies abnormal walking, Denies back pain Skin/Breast: Denies acne, Denies bleeding lesions Neurologic: Denies abnormal hearing, Denies abnormal movements, Denies abnormal walking Psychiatric: Denies memory loss, Denies mood swings Endocrine: Denies cold intolerance, Denies excessive sweating Hematologic/Lymphatic: Denies easy bleeding, Denies easy bruising Allergic/Immunologic: Denies GI upset with certain foods PMFSH - History History Provided By: Patient, Trousseau Consultant / EMT - Medical History Medical History: Medical History (Last Reviewed 10/28/18 @ 20:18 by Mikey Manley MD) BPH loc w urin obs/LUTS (Acute) COPD (chronic obstructive pulmonary disease) (Acute) Hypertension (Acute) Anemia Degenerative disc disease ESRD (end stage renal disease) on dialysis GERD (gastroesophageal reflux disease) History of alcohol dependence History of squamous cell carcinoma - Surgical History Surgical History: Surgical History (Last Reviewed 10/28/18 @ 20:18 by Mikey Manley MD) H/O hernia repair - Family History Family History: Family History (Last Reviewed 10/28/18 @ 20:18 by Mikey Manley MD) Other Family history of cancer - Social History I have reviewed the patient's Social History: Yes - Tobacco History Second Hand Smoke Exposure: No Tobacco Use In Past 30 Days: Yes Smoking Status: Current every day smoker Tobacco Type: Cigarettes Packs Per Day: 2 Cigarettes Per Day: 40 Years Smoked: 40 years: 80 - Alcohol History How Often Do You Have a Drink Containing Alcohol: Never - Substance Use History Substance History: No History of Abuse - Travel History Recent Travel in the [place] Within the Last 8 Weeks: No Recent Travel Out of the Country Within the Last 8 Weeks: No - Immunization History Tetanus Immunization: Unsure Medications and Allergies Active Medications: Active Medications Acetaminophen (Tylenol) 650 mg PO Q4H PRN PRN Reason: Temp > 100.4 Last Admin: 10/28/18 17:13 Dose: 650 mg Albuterol (Albuterol Neb (Prn)) 2.5 mg NEB Q2HR NEB PRN PRN Reason: DYSPNEA Albuterol (Duoneb Neb (Lashae)) 1 ampul NEB Q4HR NEB LASHAE Azithromycin (Zithromax) 500 mg PO DAILY LASHAE Bisacodyl (Dulcolax Supp) 10 mg RECTAL DAILY PRN PRN Reason: SEVERE CONSITIPATION Budesonide/Formoterol Fumarate (Symbicort 160/4.5 Mcg Inh) 2 puff INH BID LASHAE Last Admin: 10/28/18 08:13 Dose: Not Given Clonidine HCl (Catapres) 0.1 mg PO UNSCH PRN PRN Reason: SEE LABEL COMMENTS Diphenhydramine HCl (Benadryl) 25 mg PO UNSCH PRN PRN Reason: SEE LABEL COMMENTS Doxepin HCl (Sinequan) 25 mg PO DAILY [facility] Last Admin: 10/28/18 08:13 Dose: Not Given Epoetin González (Epogen Inj) 10,000 unit IV.PUSH UNSCH PRN PRN Reason: SEE LABEL COMMENTS Last Admin: 10/28/18 10:49 Dose: 10,000 unit Gelatin (Gelfoam 12 Mm/7 Mm Topical) 1 foam TOPICAL PRN PRN PRN Reason: help stop bleeding from site Gentamicin Sulfate (Gentamicin Inj) 20 mg OTHER WITH DIALYSIS PRN PRN Reason: Dwell Gentamycin Lock Last Admin: 10/28/18 10:48 Dose: 20 mg Guaifenesin (Mucinex Er) 600 mg PO Q12H [facility] Last Admin: 10/28/18 12:41 Dose: Not Given Heparin Sodium (Porcine) (Heparin Inj) 8,000 units OTHER WITH DIALYSIS PRN PRN Reason: for machine prime Heparin Sodium (Porcine) (Heparin Inj) 1,000 units OTHER WITH DIALYSIS PRN PRN Reason: Dwell Heparin to Fill Catheter Last Admin: 10/28/18 10:48 Dose: 1,000 units Albumin Human (Flexbumin 25% Inj) 100 mls @ 60 mls/hr IV.SIG WITH DIALYSIS PRN PRN Reason: hypotension / volume replace Last Infusion: 10/23/18 15:40 Dose: Infused Sodium Chloride (Ns Inj) 1,000 mls @ 0 mls/hr OTHER .Q0M PRN PRN Reason: for prime and rinse back Sodium Chloride (Ns Inj) 1,000 mls @ 200 mls/hr OTHER .Q5H PRN PRN Reason: for dialyzer flush PRN Sodium Chloride (Ns Inj) 1,000 mls @ 0 mls/hr IV.CONT .Q0M PRN PRN Reason: hypotension / volume replace Sodium Chloride (Ns Inj) 1,000 mls @ 100 mls/hr IV.SIG .Q10H [facility] Last Infusion: 10/28/18 20:05 Dose: Infused Sodium Chloride (Ns Inj) 250 mls @ 250 mls/hr IV.SIG ONCE ONE Stop: 10/28/18 20:59 Last Admin: 10/28/18 20:05 Dose: 250 mls/hr Albumin Human (Alburx 5% Inj) 500 mls @ 250 mls/hr IV.SIG ONCE ONE Stop: 10/28/18 21:52 Piperacillin/Tazobactam/Dextrose (Zosyn 4.5 Gm Premix) 4.5 gm in 100 mls @ 200 mls/hr IV.SIG Q8H [facility] Lactulose (Lactulose Liq) 30 ml PO DAILY PRN PRN Reason: SEVERE CONSITIPATION Latanoprost (Xalatan 0.005% Opth Drops) 1 drop EACH EYE QPM [facility] Last Admin: 10/28/18 17:14 Dose: Not Given Lorazepam (Ativan) 0.5 mg PO Q8H PRN PRN Reason: Anxiety Last Admin: 10/27/18 09:58 Dose: 0.5 mg Mannitol (Mannitol Inj) 12.5 gm IV.PUSH UNSCH PRN PRN Reason: hypotension / volume replace Nitroglycerin (Nitrostat Sl (Override)) 0.4 mg SL Q5M PRN PRN Reason: Chest Pain Nitroglycerin (Nitrostat Sl) 0.4 mg SL Q5M PRN PRN Reason: CHEST PAIN Ondansetron HCl (Zofran Inj) 4 mg IV.PUSH Q6H PRN PRN Reason: NAUSEA OR VOMITING Ondansetron HCl (Zofran Odt) 4 mg PO TID PRN PRN Reason: NAUSEA Ondansetron HCl (Zofran Inj) 4 mg IV.PUSH UNSCH PRN PRN Reason: NAUSEA OR VOMITING Oxycodone/Acetaminophen (Percocet 5/325 Mg) 1 tab PO Q4H PRN PRN Reason: PAIN 1-10 Last Admin: 10/28/18 01:45 Dose: 1 tab Pt Own Med:( Brimonidine [ Alphagan P] 1 Drp) 0 each EACH EYE BID [facility] Pharmacy Profile Note (Vancomycin Consult Pharmacy) 1 each OTHER UNSCH PRN PRN Reason: Pharmacy to dose Prednisone (Deltasone) 5 mg PO DAILY [facility] Last Admin: 10/28/18 08:13 Dose: Not Given Pregabalin (Lyrica) 25 mg PO TID [facility] Last Admin: 10/28/18 17:13 Dose: 25 mg Senna/Docusate Sodium (Denise-Colace) 1 tab PO BID [facility] Last Admin: 10/28/18 20:05 Dose: Not Given Sennosides (Senokot) 17.2 mg PO Q12H PRN PRN Reason: Moderate Constipation Sodium Chloride (Ns Flush) 2 ml IV.FLUSH BID [facility] Last Admin: 10/28/18 08:13 Dose: Not Given Sodium Chloride (Ns Flush) 2 ml IV.FLUSH PRN PRN PRN Reason: FLUSH AFTER USING IV ACCESS Sodium Chloride (Ns Flush) 5 ml IV.FLUSH PRN PRN PRN Reason: flush each lumen during HD Tamsulosin HCl (Flomax) 0.8 mg PO HS [facility] Last Admin: 10/27/18 20:01 Dose: 0.8 mg Vitamin B Complex/Vit C/Folic Acid (Nephrocaps) 1 tab PO DAILY [facility] Last Admin: 10/28/18 08:13 Dose: Not Given Allergies Allergy/AdvReac Type Severity Reaction Status Date / Time No Known Allergies Allergy Verified 10/08/18 18:07 Home Medications Medication Instructions Recorded Confirmed Type brimonidine [Alphagan P] 1 drp EACH EYE BID 09/16/18 10/23/18 History [id number] 1 cap PO Q4H PRN 09/16/18 10/23/18 History [Fioricet] latanoprost [Xalatan] 1 drp EACH EYE QPM 09/16/18 10/23/18 History losartan 50 mg PO DAILY 09/16/18 10/23/18 History pregabalin [Lyrica] 25 mg PO TID 09/16/18 10/23/18 History tamsulosin 0.8 mg PO HS 09/16/18 10/23/18 History doxepin 25 mg PO DAILY 10/08/18 10/23/18 History acetaminophen 325 mg PO Q4H PRN 10/23/18 10/23/18 History fluticasone-salmeterol [Advair 1 inh INHALATION BID 10/23/18 10/23/18 History Diskus] guaifenesin 600 mg PO Q12H 10/23/18 10/23/18 History magnesium hydroxide [Milk of 30 ml PO DAILY PRN 10/23/18 10/23/18 History Magnesia] ondansetron HCl [Zofran] 4 mg PO TID PRN 10/23/18 10/23/18 History vitamin B complex 1 tab PO DAILY 10/23/18 10/23/18 History Physical Exam Vital signs: Vital Signs 10/28/18 00:00 10/28/18 04:00 10/28/18 08:00 Temperature 98.9 F 98.7 F Pulse Rate 107 H 89 Respiratory Rate 20 20 Blood Pressure 136/75 129/69 Pulse Oximetry 99 98 93 L 10/28/18 12:00 10/28/18 16:00 10/28/18 18:03 Temperature 100.4 F H 102.1 F H Pulse Rate 119 H 127 H Respiratory Rate 18 18 Blood Pressure 120/94 H 101/54 L Pulse Oximetry 97 96 96 10/28/18 20:11 Temperature Pulse Rate Respiratory Rate Blood Pressure Pulse Oximetry 97 Intake & Output 10/28/18 10/28/18 10/29/18 06:59 18:59 06:59 Intake Total 125 / 125 Output Total 1999 Balance -1999 125 / 125 Weight 51.6 kg Intake: IV 125 / 125 NS Inj 1,000 ML @ 100 mls/hr IV 125 / 125 .SIG .Q10H LASHAE Rx#:[id number] Output: Hemodialysis Amount 1999 Other: # Voids 3 Date of Last Bowel Movement 10/26/18 10/26/18 # Bowel Movements 2 - Constitutional no acute distress - Routine HEENT Exam Head: Present: normocephalic Eye: Present: EOMI, PERRL ENT: Present: mucous membranes moist - Routine Neck Exam Present: supple, full ROM. Absent: JVD, carotid bruit - Routine Respiratory Exam Present: decreased breath sounds, crackles. Absent: accessory muscle use, rhonchi, stridor - Routine Cardiovascular Exam Present: RRR, S1, S2. Absent: murmur - Routine Abdominal Exam Present: soft, normoactive bowel sounds - Routine Exam Patient deferred: penile exam, testicular exam, scrotal exam, groin exam, perineal exam - Routine Extremities Exam Absent: cyanosis, clubbing, edema - Routine Skin Exam Present: intact - Routine Neurological Exam Present: alert, oriented X3, CN II-XII intact, sensory deficit. Absent: motor deficit - Detailed Neurological Exam: Coma Scale Eye Opening: Spontaneous Verbal Response: Oriented Motor Response: Obey commands [place] Coma Scale Total: 15 - Routine Psychiatric Exam Present: normal affect Septic Shock Reassessment Septic shock perfusion: reassessment completed Assessment and Plan - Assessment and Plan Plan: Neuro/Psych: Chronic narcotic use Chronic benzodiazepine use History of EtOH use Elevated IOP Continue latanoprost 0.005% 1 drop each eye at night Patient is on oxycodone/acetaminophen 5/325 1 tablet every 4 hours as needed pain Patient is on acetaminophen 650 mg p.o. every 6 hours as needed fever Patient is on doxepin 25 mg daily. Continue Patient is on pregabalin 25 mg 3 times daily Patient is on lorazepam 0.5 mg 3 times daily. CV: Acute hypotension Check lactic acid/troponin EKG Received 1 L normal saline 500 cc of 5% albumin x1 now. Patient does not appear septic. Resp: COPD Left upper lobe lung nodule History of tobaccoism Nasal cannula to maintain saturations greater than equal 92% Incentive spirometry while awake Patient is on fluticasone/salmeterol 250/51 inhalation twice daily at home. Scheduled albuterol/ipratropium aerosols every 4 hours with albuterol aerosols every 2 hours as needed dyspnea Up on chest x-ray Dr. Weaver is following pulmonology. Plan for left upper lobe biopsy when stable CT pulmonary angiogram admission revealed left upper lobe pulmonary nodule 0.4 cm. Resolving right-sided pneumonia. GI: Gastroesophageal reflux disease Hypoalbuminemia N.p.o. for except for medications pending lung biopsy Famotidine for GI prophylaxis Docusate sodium/senna 1 tablet twice daily for bowel regimen : BPH Straight catheterization as needed Continue tamsulosin 0.8 mg daily Endo: Chronic prednisone use/5 mg daily Sliding scale insulin if needed to maintain euglycemia Check TSH Dose hydrocortisone 5 mg IV x1 now Renal: End-stage renal disease on hemodialysis Saturday//Saturday Maintain hemodialysis per nephrology Heme: Anemia of chronic kidney disease Continue Epogen 10,000 units as needed for anemia Monitor CBC daily. Follow trends. No indication for transfusion of blood products at this time ID: Pneumonia present on admission Blood cultures x2/ no growth today. Influenza negative Originally on cefuroxime axetil transmission. Will switch to vancomycin, piperacillin/tazobactam and azithromycin. Sputum/blood cultures x2 ordered now 10/28 FEN: Replace electrolytes as clinically indicated Received 1 L normal saline in 500 cc of 5% albumin. Reassess post infusion MSK: Physical therapy evaluate and treat Access -Right IJ tunneled cuffed catheter for hemodialysis. -Utilize peripheral IV. Central line if indicated Prophylaxis -GI -famotidine -DVT -heparin subcu Level 3 consult Code Status: Full code Discussed Condition With: Dr. Ang. [facility] [place]. Care plan discussed and all questions answered.
[2018-10-28] MEDS ORDERED: Acetaminophen 325 MG Tablet PO PRN (20:27)
--- NOTE | 2018-10-28 20:45 | XR ---
EXAM DATE: 10/28/2018 8:41 PM EST AGE/SEX: 83 years / Male INDICATIONS: Evaluate for pneumonia. CLINICAL DATA: This is the patient's subsequent encounter. Patient reports that signs and symptoms h ave been present for 1 week and indicates a pain score of 0/10. MEDICAL/SURGICAL HISTORY: . Hypertension. Anemia. Chronic obstructive pulmonary disease. End St age Renal Disease. None. COMPARISON: [facility] [place], CHEST 1V SINGLE AP, 10/23/2018. . FINDINGS: Single AP view the chest. Dual-lumen right IJ central venous catheter remains in place. Lungs are ronda ar. Cardiomediastinal silhouette within normal limits. No evidence of pleural effusion or pneumothora x. CONCLUSION: No acute cardiopulmonary disease identified. Electronically signed by: Dilshad Padron MD Board Certified Radiologist 10/28/2018 8:44 PM EST
[2018-10-28] MEDS: Heparin - SQ 10,000 UNITS/ML Vial SQ SCH (21:07)
[2018-10-28] MEDS: Famotidine 20 MG Tablet PO SCH (21:19)
[2018-10-28] MEDS ORDERED: Vancomycin Inj 1,250 MG in Sodium Chlor 0.9% Inj 250 ML IV.SIG ONE (21:30)
[2018-10-28 21:34] LABS: Baso # (Auto) 0.1 th/mm3 (0.0-0.2); Baso % (Auto) 0.9 % (0.0-2.0); Eos # (Auto) 0.5 th/mm3 (0.0-0.4); Eos % (Auto) 7.6 % (0.0-4.0); Lymph # (Auto) 0.7 th/mm3 (1.0-4.8); Lymph % (Auto) 10.9 % (9.0-44.0); Mean Corpuscular HGB Conc 32.5 % (32.0-36.0); Mean Corpuscular Hemoglobin 29.2 pg (27.0-34.0); Mean Corpuscular Volume 89.8 fL (80.0-100.0); Mean Platelet Volume 8.6 fL (7.0-11.0); Mono # (Auto) 1.1 th/mm3 (0.0-0.9); Mono % (Auto) 17.5 % (0.0-8.0); Neut # (Auto) 3.9 th/mm3 (1.8-7.7); Neut % (Auto) 63.1 % (16.0-70.0); Platelet Count 294 th/mm3 (150-450); Red Blood Count 2.33 mil/mm3 (4.50-5.90); Red Cell Distribution Width 20.6 % (11.6-17.2); White Blood Count 6.1 th/mm3 (4.0-11.0)
[2018-10-28 21:43] LABS: Albumin 1.8 g/dL (3.4-5.0); Calcium 6.5 mg/dL (8.5-10.1); Hematocrit 20.9 % (39.0-51.0); Hemoglobin 6.8 gm/dL (13.0-17.0); Potassium 3.1 meq/L (3.5-5.1); Total Protein 5.5 g/dL (6.4-8.2)
[2018-10-28] MEDS: Azithromycin 250 MG Tablet PO SCH (21:55)
[2018-10-28] MEDS: Piperacil/Tazo 2.25 GM Premix 2.25 GM/50 ML PIGGYBACK IV.SIG SCH (22:22)
[2018-10-29] MEDS ORDERED: Chlorhexidine Gluconate 2% 1 Pack (2 Cloths) TOPICAL PRN (04:00)
[2018-10-29] MEDS: Piperacil/Tazo 2.25 GM Premix 2.25 GM/50 ML PIGGYBACK IV.SIG SCH ×3 (05:33→20:29)
[2018-10-29] MEDS: Chlorhexidine Gluconate 2% 1 Pack (2 Cloths) TOPICAL SCH (07:12)
[2018-10-29 07:23] LABS: Hematocrit 29.4 % (39.0-51.0); Hemoglobin 9.2 gm/dL (13.0-17.0); Mean Corpuscular HGB Conc 31.2 % (32.0-36.0); Mean Corpuscular Hemoglobin 28.8 pg (27.0-34.0); Mean Corpuscular Volume 92.5 fL (80.0-100.0); Mean Platelet Volume 8.3 fL (7.0-11.0); Platelet Count 323 th/mm3 (150-450); Red Blood Count 3.18 mil/mm3 (4.50-5.90); Red Cell Distribution Width 19.4 % (11.6-17.2); White Blood Count 4.8 th/mm3 (4.0-11.0)
[2018-10-29 07:31] LABS: Activated Partial Thrombo Time 34.4 sec (23.4-31.7); INR 1.1 Ratio; Prothrombin Time 11.5 sec (9.8-11.6)
[2018-10-29 07:53] LABS: Anion Gap 10 meq/L (5-15); Blood Urea Nitrogen 37 mg/dL (7-18); Calcium 8.1 mg/dL (8.5-10.1); Carbon Dioxide 25.8 meq/L (21.0-32.0); Chloride 104 meq/L (98-107); Glomerular Filtration Rate 16 mL/min (>89); Glucose,Random 147 mg/dL (74-106); Phosphorus 5.6 mg/dL (2.5-4.9); Potassium 4.4 meq/L (3.5-5.1); Sodium 140 meq/L (136-145)
[2018-10-29] MEDS: Heparin - SQ 10,000 UNITS/ML Vial SQ SCH ×2 (09:22→20:29)
[2018-10-29] MEDS: predniSONE 10 MG Tablet PO SCH (10:12)
[2018-10-29] MEDS: Pregabalin 25 MG Capsule PO SCH ×3 (10:12→19:21)
[2018-10-29] MEDS: Azithromycin 250 MG Tablet PO SCH (10:12)
[2018-10-29] MEDS: Vitamin B Complex/Vit C/Folic Tablet PO SCH (10:12)
[2018-10-29] MEDS: Senna/Docusate Sodium 8.6/50 MG Tablet PO SCH ×2 (10:13→20:23)
[2018-10-29] MEDS: Budesonide-Formoterol 160/4.5 MCG 6 GM Inhaler INH SCH ×2 (10:13→20:28)
[2018-10-29] MEDS: guaiFENesin 600 MG ER Tablet PO SCH ×2 (10:13→23:25)
--- NOTE | 2018-10-29 11:36 | P.PNCC ---
Subjective Subjective Remarks/Hospital Course: 10/29: No acute events overnight. Scheduled plan for lung biopsy this a.m.. Patient denies pain. No dyspnea noted. Objective Vital Signs / I&O: Vital Signs 10/28/18 12:00 10/28/18 16:00 10/28/18 18:03 Temperature 100.4 F H 102.1 F H Pulse Rate 119 H 127 H Respiratory Rate 18 18 Blood Pressure 120/94 H 101/54 L Pulse Oximetry 97 96 96 10/28/18 20:00 10/28/18 20:11 10/28/18 22:00 Temperature 98.7 F Pulse Rate 94 H 90 Respiratory Rate 22 Blood Pressure 97/54 L Pulse Oximetry 100 97 10/29/18 00:00 10/29/18 00:23 10/29/18 00:24 Temperature 98.8 F Pulse Rate 86 86 Respiratory Rate 14 17 Blood Pressure 100/59 L Pulse Oximetry 98 98 10/29/18 02:00 10/29/18 02:27 10/29/18 02:43 Temperature 98.6 F 98.6 F Pulse Rate 78 84 83 Respiratory Rate 14 22 Blood Pressure 88/52 L 109/53 L Pulse Oximetry 99 98 10/29/18 04:00 10/29/18 04:41 10/29/18 06:00 Temperature 98.8 F Pulse Rate 80 78 78 Respiratory Rate 23 18 Blood Pressure 117/57 L Pulse Oximetry 95 99 10/29/18 08:00 Temperature Pulse Rate 76 Respiratory Rate 16 Blood Pressure Pulse Oximetry 100 Intake & Output 10/28/18 10/29/18 10/29/18 18:59 06:59 18:59 Intake Total 1986. Output Total 1999 Balance -1999 / -1999. Weight 55 kg Intake: IV Alburx 5% Inj 500 ML @ 250 mls/ 500 / 500 hr IV.SIG ONCE ONE Rx#:[id number] Zosyn 2.25 GM Premix 2.25 gm In 100 / 100 50 ml @ 100 mls/hr IV.SIG Q8H LALITO Rx#:[id number] NS Inj 1,000 ML @ Wide Open IV. 875 / 875 SIG BOLUS ONE Rx#:[id number] NS Inj 250 ML @ 250 mls/hr IV. 250 / 250 SIG ONCE ONE Rx#:[id number] Vancomycin Inj 1,250 MG In NS 262.5 / 262.5 Inj 250 ML @ 250 mls/hr IV.SIG ONCE ONE Rx#:[id number] Intake (Blood Product) Amt 0 / 0 Rbc As-3 Leukoreduced Unit 0 / 0 [id number] Output: Hemodialysis Amount 1999 Other: # Voids 3 Date of Last Bowel Movement 10/26/18 10/28/18 # Bowel Movements 2 Result Diagrams: 10/29/18 06:52 10/29/18 06:52 Other Results: Laboratory Results WBC 4.8 th/mm3 (4.0-11.0) 10/29/18 06:52 RBC 3.18 mil/mm3 (4.50-5.90) L 10/29/18 06:52 Hgb 9.2 gm/dL (13.0-17.0) L D 10/29/18 06:52 Hct 29.4 % (39.0-51.0) L 10/29/18 06:52 MCV 92.5 fL (80.0-100.0) 10/29/18 06:52 MCH 28.8 pg (27.0-34.0) 10/29/18 06:52 MCHC 31.2 % (32.0-36.0) L 10/29/18 06:52 RDW 19.4 % (11.6-17.2) H 10/29/18 06:52 Plt Count 323 th/mm3 (150-450) 10/29/18 06:52 MPV 8.3 fL (7.0-11.0) 10/29/18 06:52 Prelim Diff (Auto) Slide review pending 10/28/18 21:02 Neut % (Auto) 63.1 % (16.0-70.0) 10/28/18 21:02 Lymph % (Auto) 10.9 % (9.0-44.0) 10/28/18 21:02 [place] % (Auto) 17.5 % (0.0-8.0) H 10/28/18 21:02 Eos % (Auto) 7.6 % (0.0-4.0) H 10/28/18 21:02 Baso % (Auto) 0.9 % (0.0-2.0) 10/28/18 21:02 Neut # (Auto) 3.9 th/mm3 (1.8-7.7) 10/28/18 21:02 Lymph # (Auto) 0.7 th/mm3 (1.0-4.8) L 10/28/18 21:02 [place] # (Auto) 1.1 th/mm3 (0.0-0.9) H 10/28/18 21:02 Eos # (Auto) 0.5 th/mm3 (0.0-0.4) H 10/28/18 21:02 Baso # (Auto) 0.1 th/mm3 (0.0-0.2) 10/28/18 21:02 WBC Differential . 10/28/18 21:02 Diff Scan Auto diff confirmed 10/28/18 21:02 Seg Neuts % (Manual) 73 % (16-70) H 10/23/18 07:20 Lymphocytes % (Manual) 4 % (9-44) L 10/23/18 07:20 Monocytes % (Manual) 18 % (0-8) H 10/23/18 07:20 Eosinophils % (Manual) 3 % (0-4) 10/23/18 07:20 Basophils % (Manual) 1 % (0-2) 10/23/18 07:20 Myelocytes % (Man) 1 % (0-0) H 10/23/18 07:20 Abs Neuts (Manual) 6.8 th/mm3 (1.8-7.7) 10/23/18 07:20 Differential Comment . 10/28/18 21:02 Platelet Estimate Normal (Normal) 10/23/18 07:20 Platelet Morphology Normal (Normal) 10/23/18 07:20 Ovalocytes 1+ (None) H 10/23/18 07:20 PT 11.5 sec (9.8-11.6) 10/29/18 06:52 INR 1.1 Ratio 10/29/18 06:52 APTT 34.4 sec (23.4-31.7) H 10/29/18 06:52 Puncture Site Right radial 10/23/18 09:04 Patient Temperature 98.6 10/23/18 09:04 O2 Saturation 94 % (90-100) 10/23/18 09:04 ABG pH 7.32 (7.380-7.420) L 10/23/18 09:04 ABG pCO2 47 mmHg (38-42) H 10/23/18 09:04 ABG pO2 88 mmHg (61-120) 10/23/18 09:04 ABG HCO3 23 mmol/L (22-26) 10/23/18 09:04 ABG O2 Content 11.5 Vol % (12.0-20.0) L 10/23/18 09:04 ABG Base Excess -2.1 mmol/L (-2-2) L 10/23/18 09:04 ABG Methemoglobin 0.7 % (0-2) 10/23/18 09:04 Onel Test Present 10/23/18 09:04 Hemoglobin 8.6 G/DL (12.0-16.0) L 10/23/18 09:04 Carboxyhemoglobin 1.8 % (0-4) 10/23/18 09:04 O2 Delivery Device Nasal cannula 10/23/18 09:04 Liter Flow 4.00 L/M 10/23/18 09:04 Critical Value No 10/23/18 09:04 Sodium 140 meq/L (136-145) 10/29/18 06:52 Potassium 4.4 meq/L (3.5-5.1) D 10/29/18 06:52 Chloride 104 meq/L (98-107) D 10/29/18 06:52 Carbon Dioxide 25.8 meq/L (21.0-32.0) 10/29/18 06:52 Anion Gap 10 meq/L (5-15) 10/29/18 06:52 BUN 37 mg/dL (7-18) H 10/29/18 06:52 Creatinine 4.30 mg/dL (0.60-1.30) H 10/29/18 06:52 Estimated GFR 16 mL/min (>89) L 10/29/18 06:52 POC Glucose 103 mg/dl (68-110) 10/28/18 19:27 Random Glucose 147 mg/dL (74-106) H 10/29/18 06:52 Lactic Acid 1.0 mmol/L (0.4-2.0) 10/29/18 06:52 Calcium 8.1 mg/dL (8.5-10.1) L D 10/29/18 06:52 Calcium Adj for Albumin 8.3 mg/dL (8.5-10.1) L 10/28/18 21:02 Phosphorus 5.6 mg/dL (2.5-4.9) H 10/29/18 06:52 Magnesium 2.0 mg/dL (1.5-2.5) 10/29/18 06:52 Total Bilirubin 0.3 mg/dL (0.2-1.0) 10/28/18 21:02 AST 13 U/L (15-37) L 10/28/18 21:02 ALT 16 U/L (12-78) 10/28/18 21:02 Alkaline Phosphatase 43 U/L (45-117) L 10/28/18 21:02 Troponin I Less than 0.02 ng/mL (0.02-0.05) L 10/29/18 06:52 Total Protein 5.5 g/dL (6.4-8.2) L D 10/28/18 21:02 Albumin 1.8 g/dL (3.4-5.0) L 10/28/18 21:02 Urine Color Yellow (Yellw/Straw) 10/23/18 07:40 Urine Clarity Clear (Clear) 10/23/18 07:40 Urine pH 6.0 (5.0-8.5) 10/23/18 07:40 Ur Specific [place] 1.011 (1.002-1.035) 10/23/18 07:40 Urine Protein 30 mg/dL (Neg-Trace) H 10/23/18 07:40 Urine Glucose (UA) Negative mg/dL (Negative) 10/23/18 07:40 Urine Ketones Negative mg/dL (Negative) 10/23/18 07:40 Urine Occult Blood Negative (Negative) 10/23/18 07:40 Urine Nitrate Negative (Negative) 10/23/18 07:40 Urine Bilirubin Negative (Negative) 10/23/18 07:40 Urine Urobilinogen Less than 2 mg/dL (Less than 2) 10/23/18 07:40 Ur Leukocyte Esterase Negative (Negative) 10/23/18 07:40 Urine RBC Less than 1 /hpf (0-3) 10/23/18 07:40 Urine WBC 1 /hpf (0-5) 12/13/18 07:40 Ur Squamous Epith Cells <1 /hpf (0-5) 10/23/18 07:40 Micro UA Comment Culture not ind 10/23/18 07:40 Ur Microscopic Review Not Reportable 10/23/18 07:40 Urine Culture Comments Culture not ind 10/23/18 07:40 Nasal Screen MRSA (PCR) Not detected (Negative) 10/28/18 19:57 Blood Type A Positive 10/28/18 23:38 Antibody Screen Negative 10/28/18 23:38 MTS Gel Crossmatch See Detail 10/28/18 23:38 Bld Prod Order Comment N 10/28/18 23:38 Impressions Chest CTA 10/23/18 07:53 CONCLUSION: 1. No evidence of pulmonary emboli 2. Enlarging left upper lobe pulmonary nodule characteristic of malignancy. 3. Consolidating airspace disease in the right upper and lower lobes Chest X-Ray 10/28/18 00:00 CONCLUSION: No acute cardiopulmonary disease identified. Objective Remarks: GENERAL: This is an elderly thin male in no acute distress SKIN: Warm and dry. HEAD: Atraumatic. Normocephalic. EYES: Pupils equal and round. No scleral icterus. No injection or drainage. ENT: No nasal bleeding or discharge. Mucous membranes pink and moist. NECK: Trachea midline. No JVD. CARDIOVASCULAR: Normal rate, regular rhythm. Tunneled left vascular cath RESPIRATORY: No accessory muscle use. Clear to auscultation. Breath sounds equal bilaterally. GASTROINTESTINAL: Abdomen soft, non-tender, nondistended. No guarding. MUSCULOSKELETAL: Extremities without clubbing, cyanosis, or edema. No obvious deformities. NEUROLOGICAL: Awake and alert. RASS 0. No gross focal/sensory deficits. Follows commands in all 4 extremities. Assessment and Plan - Assessment and Plan Plan: Neuro/Psych: Chronic narcotic use Chronic benzodiazepine use History of EtOH use Elevated IOP Continue latanoprost 0.005% 1 drop each eye at night Patient is on oxycodone/acetaminophen 5/325 1 tablet every 4 hours as needed pain Patient is on acetaminophen 650 mg p.o. every 6 hours as needed fever Patient is on doxepin 25 mg daily. Continue Patient is on pregabalin 25 mg 3 times daily Patient is on lorazepam 0.5 mg 3 times daily. CV: Acute hypotension Check lactic acid/troponin EKG Received 1 L normal saline 500 cc of 5% albumin x1 now. Patient does not appear septic. Resp: COPD Left upper lobe lung nodule History of tobaccoism Nasal cannula to maintain saturations greater than equal 92% Incentive spirometry while awake Patient is on fluticasone/salmeterol 250/51 inhalation twice daily at home. Scheduled albuterol/ipratropium aerosols every 4 hours with albuterol aerosols every 2 hours as needed dyspnea Up on chest x-ray Dr. Weaver is following pulmonology. Plan for left upper lobe biopsy this a.m. CT pulmonary angiogram admission revealed left upper lobe pulmonary nodule 0.4 cm. Resolving right-sided pneumonia. GI: Gastroesophageal reflux disease Hypoalbuminemia N.p.o. for except for medications pending lung biopsy Famotidine for GI prophylaxis Docusate sodium/senna 1 tablet twice daily for bowel regimen : BPH Straight catheterization as needed Continue tamsulosin 0.8 mg daily Endo: Chronic prednisone use/5 mg daily Sliding scale insulin if needed to maintain euglycemia Check TSH Dose hydrocortisone 5 mg IV x1 10/28 Continue prednisone home medication Renal: End-stage renal disease on hemodialysis Saturday//Saturday Maintain hemodialysis scheduling per nephrology Heme: Anemia of chronic kidney disease Continue Epogen 10,000 units as needed for anemia Monitor CBC daily. Follow trends. No indication for transfusion of blood products at this time Transfuse for hemoglobin less than 7 ID: Pneumonia present on admission Blood cultures x212/13 no growth today. Influenza negative Originally on cefuroxime axetil transmission. Will switch to vancomycin, piperacillin/tazobactam and azithromycin. Sputum/blood cultures x2 ordered now 10/28 FEN: Replace electrolytes as clinically indicated Received 1 L normal saline in 500 cc of 5% albumin. Reassess post infusion MSK: Physical therapy evaluate and treat Access -Right IJ tunneled cuffed catheter for hemodialysis. -Utilize peripheral IV. Central line if indicated Prophylaxis -GI -famotidine -DVT -heparin subcu Level 2 followup, Plan transfer to [facility] in am Code Status: Full Discussed Condition With: Patient and TRIPE FINISHER at bedside
--- NOTE | 2018-10-29 13:30 | P.PN ---
Subjective Interval history: He was placed in [facility] for hypotension and rapid response code. Now better. On O2 2 l. Refused lung biopsy. Physical Exam Vital signs: Vital Signs 10/28/18 16:00 10/28/18 18:03 10/28/18 20:00 Temperature 102.1 F H 98.7 F Pulse Rate 127 H 94 H Respiratory Rate 18 22 Blood Pressure 101/54 L 97/54 L Pulse Oximetry 96 96 100 10/28/18 20:11 10/28/18 22:00 10/29/18 00:00 Temperature 98.8 F Pulse Rate 90 86 Respiratory Rate 14 Blood Pressure 100/59 L Pulse Oximetry 97 98 10/29/18 00:23 10/29/18 00:24 10/29/18 02:00 Temperature Pulse Rate 86 78 Respiratory Rate 17 Blood Pressure Pulse Oximetry 98 10/29/18 02:27 10/29/18 02:43 10/29/18 04:00 Temperature 98.6 F 98.6 F 98.8 F Pulse Rate 84 83 80 Respiratory Rate 14 22 23 Blood Pressure 88/52 L 109/53 L 117/57 L Pulse Oximetry 99 98 95 10/29/18 04:41 10/29/18 06:00 10/29/18 08:00 Temperature Pulse Rate 78 78 76 Respiratory Rate 18 16 Blood Pressure Pulse Oximetry 99 100 Intake & Output 10/28/18 10/29/18 10/29/18 18:59 06:59 18:59 Intake Total 1986. Output Total 1999 Balance -1999 / -1999. Weight 55 kg Intake: IV 1986. Alburx 5% Inj 500 ML @ 250 mls/ 500 / 500 hr IV.SIG ONCE ONE Rx#:[id number] Zosyn 2.25 GM Premix 2.25 gm In 100 / 100 50 ml @ 100 mls/hr IV.SIG Q8H LALITO Rx#:[id number] NS Inj 1,000 ML @ Wide Open IV. 875 / 875 SIG BOLUS ONE Rx#:[id number] NS Inj 250 ML @ 250 mls/hr IV. 250 / 250 SIG ONCE ONE Rx#:[id number] Vancomycin Inj 1,250 MG In NS 262.5 / 262.5 Inj 250 ML @ 250 mls/hr IV.SIG ONCE ONE Rx#:[id number] Intake (Blood Product) Amt 0 / 0 Rbc As-3 Leukoreduced Unit 0 / 0 [id number] Output: Hemodialysis Amount 1999 Other: # Voids 3 Date of Last Bowel Movement 10/26/18 10/28/18 # Bowel Movements 2 Narrative: GENERAL: Elderly A/A male Frail, Alert and oriented. SKIN: Warm and dry.Pallor + NECK: Trachea midline. No JVD. CARDIOVASCULAR: Regular rate and rhythm. Right IJ perma cath. RESPIRATORY: No accessory muscle use.Occ Wheeze upper chest +. Breath sounds are diminished. GASTROINTESTINAL: Abdomen soft, non-tender, nondistended. MUSCULOSKELETAL: Extremities without clubbing, cyanosis, or edema. Generalized weakness. PSYCHIATRIC: Appropriate mood and affect. Results - Labs CBC & Chem 7: 10/29/18 06:52 10/29/18 06:52 Laboratory Results - last 24 hr 10/28/18 10/28/18 10/28/18 19:27 19:57 21:02 WBC 6.1 RBC 2.33 L Hgb 6.8 L* Hct 20.9 L* MCV 89.8 MCH 29.2 MCHC 32.5 RDW 20.6 H Plt Count 294 MPV 8.6 Prelim Diff (Auto) Slide review pending Neut % (Auto) 63.1 Lymph % (Auto) 10.9 [place] % (Auto) 17.5 H Eos % (Auto) 7.6 H Baso % (Auto) 0.9 Neut # (Auto) 3.9 Lymph # (Auto) 0.7 L [place] # (Auto) 1.1 H Eos # (Auto) 0.5 H Baso # (Auto) 0.1 WBC Differential . Diff Scan Auto diff confirmed Differential Comment . PT INR APTT Sodium Potassium Chloride Carbon Dioxide Anion Gap BUN Creatinine Estimated GFR POC Glucose 103 Random Glucose Lactic Acid Calcium Calcium Adj for Albumin Phosphorus Magnesium Total Bilirubin AST ALT Alkaline Phosphatase Troponin I Total Protein Albumin Nasal Screen MRSA (PCR) Not detected Blood Type Antibody Screen MTS Gel Crossmatch Bld Prod Order Comment 10/28/18 10/28/18 10/28/18 21:02 21:02 23:38 WBC RBC Hgb Hct MCV MCH MCHC RDW Plt Count MPV Prelim Diff (Auto) Neut % (Auto) Lymph % (Auto) [place] % (Auto) Eos % (Auto) Baso % (Auto) Neut # (Auto) Lymph # (Auto) [place] # (Auto) Eos # (Auto) Baso # (Auto) WBC Differential Diff Scan Differential Comment PT INR APTT Sodium 146 H Potassium 3.1 L Chloride 115 H D Carbon Dioxide 25.0 Anion Gap 6 BUN 22 H Creatinine 2.90 H Estimated GFR 25 L POC Glucose Random Glucose 74 Lactic Acid 0.7 Calcium 6.5 L* D Calcium Adj for Albumin 8.3 L Phosphorus Magnesium Total Bilirubin 0.3 AST 13 L ALT 16 Alkaline Phosphatase 43 L Troponin I Total Protein 5.5 L D Albumin 1.8 L Nasal Screen MRSA (PCR) Blood Type A Positive Antibody Screen Negative MTS Gel Crossmatch See Detail Bld Prod Order Comment N 10/29/18 10/29/18 10/29/18 06:52 06:52 06:52 WBC 4.8 RBC 3.18 L Hgb 9.2 L D Hct 29.4 L MCV 92.5 MCH 28.8 MCHC 31.2 L RDW 19.4 H Plt Count 323 MPV 8.3 Prelim Diff (Auto) Neut % (Auto) Lymph % (Auto) [place] % (Auto) Eos % (Auto) Baso % (Auto) Neut # (Auto) Lymph # (Auto) [place] # (Auto) Eos # (Auto) Baso # (Auto) WBC Differential Diff Scan Differential Comment PT INR APTT Sodium 140 Potassium 4.4 D Chloride 104 D Carbon Dioxide 25.8 Anion Gap 10 BUN 37 H Creatinine 4.30 H Estimated GFR 16 L POC Glucose Random Glucose 147 H Lactic Acid 1.0 Calcium 8.1 L D Calcium Adj for Albumin Phosphorus 5.6 H Magnesium 2.0 Total Bilirubin AST ALT Alkaline Phosphatase Troponin I Less than 0.02 L Total Protein Albumin Nasal Screen MRSA (PCR) Blood Type Antibody Screen MTS Gel Crossmatch Bld Prod Order Comment 10/29/18 06:52 WBC RBC Hgb Hct MCV MCH MCHC RDW Plt Count MPV Prelim Diff (Auto) Neut % (Auto) Lymph % (Auto) [place] % (Auto) Eos % (Auto) Baso % (Auto) Neut # (Auto) Lymph # (Auto) [place] # (Auto) Eos # (Auto) Baso # (Auto) WBC Differential Diff Scan Differential Comment PT 11.5 INR 1.1 APTT 34.4 H Sodium Potassium Chloride Carbon Dioxide Anion Gap BUN Creatinine Estimated GFR POC Glucose Random Glucose Lactic Acid Calcium Calcium Adj for Albumin Phosphorus Magnesium Total Bilirubin AST ALT Alkaline Phosphatase Troponin I Total Protein Albumin Nasal Screen MRSA (PCR) Blood Type Antibody Screen MTS Gel Crossmatch Bld Prod Order Comment Microbiology 10/28/18 20:05 Sputum - Expectorated Sputum Gram Stain - Final 10/28/18 20:50 Blood - Peripheral Aerobic Blood Culture - Preliminary No growth in 1 day 10/28/18 20:50 Blood - Peripheral Anaerobic Blood Culture - Preliminary No growth in 1 day 10/28/18 21:02 Blood - Peripheral Aerobic Blood Culture - Preliminary No growth in 1 day 10/28/18 21:02 Blood - Peripheral Anaerobic Blood Culture - Preliminary No growth in 1 day 10/23/18 07:05 Blood - Peripheral Aerobic Blood Culture - Final No growth in 5 days 10/23/18 07:05 Blood - Peripheral Anaerobic Blood Culture - Final No growth in 5 days 10/23/18 07:00 Blood - Peripheral Aerobic Blood Culture - Final No growth in 5 days 10/23/18 07:00 Blood - Peripheral Anaerobic Blood Culture - Final No growth in 5 days - Imaging Impressions Chest X-Ray 10/28/18 00:00 CONCLUSION: No acute cardiopulmonary disease identified. Assessment and Plan - Assessment (1) Acute kidney failure Code(s): N17.9 - Acute kidney failure, unspecified Status: Acute Onset Date : ~05/22/18 (2) Hydronephrosis Code(s): N13.30 - Unspecified hydronephrosis Status: Acute Onset Date: ~10/28 (3) Weakness Code(s): R53.1 - Weakness Status: Acute (4) Lung nodule Code(s): R91.1 - Solitary pulmonary nodule Status: Acute Onset Date: ~ (5) Obstructive uropathy Code(s): N13.9 - Obstructive and reflux uropathy, unspecified Status: Chronic (6) Vitamin D deficiency Code(s): E55.9 - Vitamin D deficiency, unspecified Status: Acute - Plan 1. Cont on o2 2 L.N/C 2. Chest X ray in am 3. Duonebs qid. 4. Continue antibiotics PO 5. CBC BMP , in am 6. Continue Symbicort , 2 puffs BID 7. Dialysis in am. (1) Acute kidney failure Qualifiers: Acute renal failure type: with other specified pathological lesion Qualified Code(s): N17.8 - Other acute kidney failure (2) Hydronephrosis Qualifiers: Hydronephrosis type: other Qualified Code(s): N13.39 - Other hydronephrosis
[2018-10-29] MEDS ORDERED: Vancomycin Inj 1,000 MG in Sodium Chlor 0.9% Inj 250 ML IV.SIG SCH (18:00)
[2018-10-29] MEDS: Latanoprost 0.005% Opth Drops 2.5 ML Bottle EACH EYE SCH ×2 (18:15→20:28)
[2018-10-29] MEDS: Famotidine 20 MG Tablet PO SCH (20:29)
--- NOTE | 2018-10-29 22:16 | P.PNNP ---
Subjective Interval history: Patient is alert, eating , mild SOB, with nasal cannula. Physical Exam Vital signs: Vital Signs 10/29/18 00:00 10/29/18 00:23 10/29/18 00:24 Temperature 98.8 F Pulse Rate 86 86 Respiratory Rate 14 17 Blood Pressure 100/59 L Pulse Oximetry 98 98 10/29/18 02:00 10/29/18 02:27 10/29/18 02:43 Temperature 98.6 F 98.6 F Pulse Rate 78 84 83 Respiratory Rate 14 22 Blood Pressure 88/52 L 109/53 L Pulse Oximetry 99 98 10/29/18 04:00 10/29/18 04:41 10/29/18 06:00 Temperature 98.8 F Pulse Rate 80 78 78 Respiratory Rate 23 18 Blood Pressure 117/57 L Pulse Oximetry 95 99 10/29/18 07:00 10/29/18 08:00 10/29/18 09:00 Temperature 98.5 F Pulse Rate 79 80 85 Respiratory Rate 19 18 13 Blood Pressure 113/57 L 117/60 132/60 Pulse Oximetry 100 100 99 10/29/18 09:54 10/29/18 10:00 10/29/18 11:00 Temperature Pulse Rate 89 92 H 83 Respiratory Rate 18 27 H 42 H Blood Pressure 115/57 L 132/58 L 108/57 L Pulse Oximetry 99 100 99 10/29/18 12:00 10/29/18 13:00 10/29/18 14:00 Temperature Pulse Rate 93 H 96 H 80 Respiratory Rate 13 18 14 Blood Pressure 95/52 L 129/66 119/64 Pulse Oximetry 100 98 99 10/29/18 15:00 10/29/18 16:00 10/29/18 17:00 Temperature Pulse Rate 84 92 H 83 Respiratory Rate 19 20 17 Blood Pressure 97/50 L 115/58 L Pulse Oximetry 96 98 99 10/29/18 17:01 10/29/18 18:00 10/29/18 20:00 Temperature 98.4 F Pulse Rate 84 89 85 Respiratory Rate 25 H 18 17 Blood Pressure 116/66 144/63 H 99/54 L Pulse Oximetry 96 100 97 Intake & Output 10/29/18 10/29/18 10/30/18 06:59 18:59 06:59 Intake Total 1986.5 / 1986.5 50 / 50 50 / 50 Output Total 200 / 200 Balance 50 / 50 -150 / -150 Weight 55 kg Intake: IV 50 / 50 50 / 50 Alburx 5% Inj 500 ML @ 250 mls/ 500 / 500 hr IV.SIG ONCE ONE Rx#:[id number] Zosyn 2.25 GM Premix 2.25 gm In 100 / 100 50 / 50 50 / 50 50 ml @ 100 mls/hr IV.SIG Q8H LALITO Rx#:[id number] NS Inj 1,000 ML @ Wide Open IV. 875 / 875 SIG BOLUS ONE Rx#:[id number] NS Inj 250 ML @ 250 mls/hr IV. 250 / 250 SIG ONCE ONE Rx#:[id number] Vancomycin Inj 1,250 MG In NS 262.5 / 262.5 Inj 250 ML @ 250 mls/hr IV.SIG ONCE ONE Rx#:[id number] Intake (Blood Product) Amt 0 / 0 Rbc As-3 Leukoreduced Unit 0 / 0 [id number] Output: Urine 200 / 200 Other: Date of Last Bowel Movement 10/28/18 10/28/18 10/28/18 Narrative: GENERAL: Elderly A/A male Frail, Alert and oriented. SKIN: Warm and dry.Pallor + NECK: Trachea midline. No JVD. CARDIOVASCULAR: Regular rate and rhythm. Right IJ perma cath. RESPIRATORY: No accessory muscle use.Occ Wheeze upper chest +. Breath sounds are diminished. GASTROINTESTINAL: Abdomen soft, non-tender, nondistended. MUSCULOSKELETAL: Extremities without clubbing, cyanosis, or edema. Generalized weakness. PSYCHIATRIC: Appropriate mood and affect. Assessment and Plan - Assessment (1) End-stage renal disease on hemodialysis Code(s): N18.6 - End stage renal disease; Z99.2 - Dependence on renal dialysis Status: Acute Plan: Patient with end stage renal disease. Patient has weight loss and not eating well. Has been on HD 3 times a week. Has lung mass and needed Biopsy. Patient's family refused Biopsy. Continue antibiotics for Pneumonia. HD will be in AM. (2) Pneumonia Code(s): J18.9 - Pneumonia, unspecified organism Status: Acute Plan: On antibiotics. (3) COPD (chronic obstructive pulmonary disease) Code(s): J44.9 - Chronic obstructive pulmonary disease, unspecified Status: Acute Plan: On breathing treatment and steroids. Followed by Pulmonary (4) Hypertension Code(s): I10 - Essential (primary) hypertension Status: Acute Plan: Blood pressure is better controlled, continue to monitor (5) Lung mass Code(s): R91.8 - Other nonspecific abnormal finding of lung field Status: Acute Plan: Left upper lung nodule and increasing size. Seen by Pulmonary, Biopsy planned
[2018-10-30] MEDS: Chlorhexidine Gluconate 2% 1 Pack (2 Cloths) TOPICAL SCH (03:32)
[2018-10-30] MEDS: Piperacil/Tazo 2.25 GM Premix 2.25 GM/50 ML PIGGYBACK IV.SIG SCH ×3 (03:32→20:00)
--- NOTE | 2018-10-30 04:53 | XR ---
EXAM DATE: 10/30/2018 4:48 AM EST AGE/SEX: 83 years / Male INDICATIONS: Shortness of breath. CLINICAL DATA: This is the patient's subsequent encounter. Patient reports that signs and symptoms h ave been present for 1 week and indicates a pain score of 5/10. MEDICAL/SURGICAL HISTORY: . Hypertension. Anemia. Chronic obstructive pulmonary disease. End St age Renal Disease. None. COMPARISON: [facility] [place], CHEST 1V SINGLE AP, 10/28/2018. . FINDINGS: Mild patient rotation. Double lumen central line tip projects in the right atrium. The lungs are symm etrically aerated. No infiltrates seen. Heart normal in size. Both hemidiaphragms well delineated. CONCLUSION: The lungs are clear. No infiltrates seen. Electronically signed by: Greg Kay MD Board Certified Radiologist 10/30/2018 4:52 AM EST
[2018-10-30 06:54] LABS: Baso # (Auto) 0.1 th/mm3 (0.0-0.2); Baso % (Auto) 1.2 % (0.0-2.0); Eos # (Auto) 0.5 th/mm3 (0.0-0.4); Eos % (Auto) 6.3 % (0.0-4.0); Hematocrit 27.9 % (39.0-51.0); Lymph # (Auto) 0.7 th/mm3 (1.0-4.8); Lymph % (Auto) 8.8 % (9.0-44.0); Mean Corpuscular HGB Conc 32.1 % (32.0-36.0); Mean Corpuscular Volume 90.2 fL (80.0-100.0); Mean Platelet Volume 8.5 fL (7.0-11.0); Mono # (Auto) 1.2 th/mm3 (0.0-0.9); Mono % (Auto) 16.2 % (0.0-8.0); Neut # (Auto) 5.1 th/mm3 (1.8-7.7); Neut % (Auto) 67.5 % (16.0-70.0); Platelet Count 362 th/mm3 (150-450); Red Blood Count 3.09 mil/mm3 (4.50-5.90); Red Cell Distribution Width 19.4 % (11.6-17.2); White Blood Count 7.5 th/mm3 (4.0-11.0)
[2018-10-30 07:08] LABS: Calcium 8.5 mg/dL (8.5-10.1); Carbon Dioxide 27.4 meq/L (21.0-32.0); Magnesium 2.1 mg/dL (1.5-2.5); Potassium 3.6 meq/L (3.5-5.1)
--- NOTE | 2018-10-30 08:53 | P.PNFP ---
Subjective Interval history: Found in bed, voices he feels good. Denies Cp, SOB is baseline, NC in place Has dialysis today Family refused lung biopsy, per notes Results - Labs Result diagrams: 10/30/18 04:30 10/30/18 04:30 Abnormal lab results 10/30/18 10/30/18 Range/Units 04:30 04:30 RBC 3.09 L (4.50-5.90) mil/mm3 Hgb 9.0 L (13.0-17.0) gm/dL Hct 27.9 L (39.0-51.0) % RDW 19.4 H (11.6-17.2) % Lymph % (Auto) 8.8 L (9.0-44.0) % Wilson % (Auto) 16.2 H (0.0-8.0) % Eos % (Auto) 6.3 H (0.0-4.0) % Lymph # (Auto) 0.7 L (1.0-4.8) th/mm3 Wilson # (Auto) 1.2 H (0.0-0.9) th/mm3 Eos # (Auto) 0.5 H (0.0-0.4) th/mm3 BUN 54 H (7-18) mg/dL Creatinine 5.21 H (0.60-1.30) mg/dL Estimated GFR 13 L (>89) mL/min Phosphorus 5.0 H (2.5-4.9) mg/dL Short CBC 10/30/18 Range/Units 04:30 WBC 7.5 D (4.0-11.0) th/mm3 Hgb 9.0 L (13.0-17.0) gm/dL Hct 27.9 L (39.0-51.0) % Plt Count 362 (150-450) th/mm3 BMP 10/30/18 04:30 Sodium 141 Potassium 3.6 D Chloride 105 Carbon Dioxide 27.4 BUN 54 H Creatinine 5.21 H Calcium 8.5 - Imaging Impressions Chest X-Ray 10/30/18 04:00 CONCLUSION: The lungs are clear. No infiltrates seen. Physical Exam Vital signs: Vital Signs 10/29/18 09:00 10/29/18 09:54 10/29/18 10:00 Temperature Pulse Rate 85 89 92 H Respiratory Rate 13 18 27 H Blood Pressure 132/60 115/57 L 132/58 L Pulse Oximetry 99 99 100 10/29/18 11:00 10/29/18 12:00 10/29/18 13:00 Temperature Pulse Rate 83 93 H 96 H Respiratory Rate 42 H 13 18 Blood Pressure 108/57 L 95/52 L 129/66 Pulse Oximetry 99 100 98 10/29/18 14:00 10/29/18 15:00 10/29/18 16:00 Temperature Pulse Rate 80 84 92 H Respiratory Rate 14 19 20 Blood Pressure 119/64 97/50 L 115/58 L Pulse Oximetry 99 96 98 10/29/18 17:00 10/29/18 17:01 10/29/18 18:00 Temperature Pulse Rate 83 84 89 Respiratory Rate 17 25 H 18 Blood Pressure 116/66 144/63 H Pulse Oximetry 99 96 100 10/29/18 20:00 10/29/18 22:00 10/30/18 00:00 Temperature 98.4 F 98.2 F Pulse Rate 85 81 82 Respiratory Rate 17 17 Blood Pressure 99/54 L 139/69 Pulse Oximetry 97 100 10/30/18 02:00 10/30/18 04:00 10/30/18 04:04 Temperature 98.2 F Pulse Rate 79 74 Respiratory Rate 17 17 Blood Pressure 118/59 L Pulse Oximetry 99 10/30/18 06:00 10/30/18 07:00 10/30/18 08:00 Temperature Pulse Rate 72 75 87 Respiratory Rate 14 15 Blood Pressure 115/59 L 139/67 Pulse Oximetry 99 100 10/30/18 08:15 10/30/18 08:30 Temperature Pulse Rate 70 72 Respiratory Rate 18 22 Blood Pressure 128/70 141/80 H Pulse Oximetry 100 100 Intake & Output 10/29/18 10/30/18 10/30/18 18:59 06:59 18:59 Intake Total 50 / 50 780 / 780 Output Total 510 / 510 Balance 50 / 50 270 / 270 Weight 55 kg Intake: IV 50 / 50 100 / 100 Zosyn 2.25 GM Premix 2.25 gm In 50 / 50 100 / 100 50 ml @ 100 mls/hr IV.SIG Q8H [facility] Rx#:[id number] Oral 680 / 680 Output: Urine 510 / 510 Other: Date of Last Bowel Movement 10/28/18 10/30/18 10/30/18 # Incontinent Bowel Movements 1 - Constitutional no acute distress - Routine HEENT Exam Eye: Present: PERRL ENT: Present: mucous membranes moist - Routine Neck Exam Present: supple - Routine Respiratory Exam Present: wheezes, diminished air movement - Routine Cardiovascular Exam Present: S1, S2 - Routine Abdominal Exam Present: soft, normoactive bowel sounds - Routine Skin Exam Present: dry, warm - Routine Neurological Exam Present: alert, oriented X3 - Routine Psychiatric Exam Present: cooperative Assessment and Plan - Assessment (1) Pneumonia Code(s): J18.9 - Pneumonia, unspecified organism Status: Acute Plan: Pulmonary following, on Bronchodilators with Oxygen supplement, family refuse biopsy (2) End stage renal disease Code(s): N18.6 - End stage renal disease Status: Acute Plan: HD //Sat (3) Lung nodule Code(s): R91.1 - Solitary pulmonary nodule Status: Acute Onset Date: ~ Plan: family refuse biopsy (4) Hypertension Code(s): I10 - Essential (primary) hypertension Status: Resolved Plan: Controlled on home med's (5) Anemia of renal disease Code(s): D63.1 - Anemia in chronic kidney disease Status: Acute Plan: Monitor CBC. MARITO with dialysis (6) Hypertension Code(s): I10 - Essential (primary) hypertension Status: Acute - Assessment and Plan 10/25/18 - He was seen and examined in dialysis. He remains on IV antibiotics and apparently is to have a bx of the suspicious lung nodule on Saturday. Will cont thrice weekly dialysis and IV antibiotics. 10/26/18 - He is lying flat in bed and is comfortable at this time. He cont to have mild expiratory wheezes and Pulm is following. He is for a CT Guided lung nodule BX tomorrow. I have reordered labs for the AM including an INR. Cont antibiotics for PNA and F/U Pulm recommendations and Bx results. 10/27/18- See this am, he denies any complaints, No Cp, Palpations, sat's are maintained on 3 liters. He is pleased with dialysis time change. He is scheduled for biopsy later today. He is inquiring about DC. He cont on IV antibiotics and bronchodilators for PNA. Will order PT activity. He is afebrile, VSS. Dialysis on //Sat DC back to [facility] once cleared with pulmonary. - off floor for biopsy /dialysis 10/30/18- Seen this am he is resting in bed, States he is feeling good. sat's , maintained on 3liters. We will transfer to [facility]. He will have dialysis today , family has declined lung biopsy, will plan on DC back to [place] tomorrow id cleared by consults. (4) Hypertension Qualifiers:
[2018-10-30] MEDS: Pregabalin 25 MG Capsule PO SCH ×3 (12:03→17:59)
[2018-10-30] MEDS: Senna/Docusate Sodium 8.6/50 MG Tablet PO SCH ×2 (12:03→21:37)
[2018-10-30] MEDS: Azithromycin 250 MG Tablet PO SCH (12:10)
[2018-10-30] MEDS: predniSONE 10 MG Tablet PO SCH (12:10)
[2018-10-30] MEDS: Vitamin B Complex/Vit C/Folic Tablet PO SCH (12:10)
[2018-10-30] MEDS: guaiFENesin 600 MG ER Tablet PO SCH ×2 (12:10→22:00)
[2018-10-30] MEDS: Heparin - SQ 10,000 UNITS/ML Vial SQ SCH ×2 (12:11→21:36)
[2018-10-30] MEDS: Budesonide-Formoterol 160/4.5 MCG 6 GM Inhaler INH SCH ×2 (12:11→21:38)
[2018-10-30] MEDS: Latanoprost 0.005% Opth Drops 2.5 ML Bottle EACH EYE SCH (17:59)
--- NOTE | 2018-10-30 18:08 | P.PN ---
Subjective Interval history: He is alert and breathing well. On O2 2 L. Refused Lung biopsy. Physical Exam Vital signs: Vital Signs 10/29/18 20:00 10/29/18 22:00 10/30/18 00:00 Temperature 98.4 F 98.2 F Pulse Rate 85 81 82 Respiratory Rate 17 17 Blood Pressure 99/54 L 139/69 Pulse Oximetry 97 100 10/30/18 02:00 10/30/18 04:00 10/30/18 04:04 Temperature 98.2 F Pulse Rate 79 74 Respiratory Rate 17 17 Blood Pressure 118/59 L Pulse Oximetry 99 10/30/18 06:00 10/30/18 07:00 10/30/18 08:00 Temperature Pulse Rate 72 75 87 Respiratory Rate 14 15 Blood Pressure 115/59 L 139/67 Pulse Oximetry 99 100 10/30/18 08:15 10/30/18 08:30 10/30/18 08:45 Temperature Pulse Rate 70 72 71 Respiratory Rate 18 22 19 Blood Pressure 128/70 141/80 H 135/73 Pulse Oximetry 100 100 100 10/30/18 09:00 10/30/18 09:15 10/30/18 09:30 Temperature Pulse Rate 78 81 81 Respiratory Rate 12 13 23 Blood Pressure 128/65 105/60 113/67 Pulse Oximetry 100 99 99 10/30/18 09:45 10/30/18 10:00 10/30/18 10:15 Temperature Pulse Rate 101 H 95 H 96 H Respiratory Rate 23 15 16 Blood Pressure 103/63 104/63 95/54 L Pulse Oximetry 99 100 100 10/30/18 10:30 10/30/18 10:45 10/30/18 11:00 Temperature Pulse Rate 94 H 93 H 96 H Respiratory Rate 13 15 16 Blood Pressure 89/58 L 111/60 101/55 L Pulse Oximetry 99 100 98 10/30/18 11:14 10/30/18 12:00 10/30/18 15:46 Temperature Pulse Rate 102 H 93 H Respiratory Rate 17 30 H Blood Pressure 99/55 L 97/59 L Pulse Oximetry 99 99 96 10/30/18 16:00 Temperature 97.5 F L Pulse Rate 79 Respiratory Rate 19 Blood Pressure 101/55 L Pulse Oximetry 97 Intake & Output 10/29/18 10/30/18 10/30/18 18:59 06:59 18:59 Intake Total 50 / 50 780 / 780 250 / 250 Output Total 510 / 510 1500 / 1500 Balance 50 / 50 270 / 270 -1250 / -1250 Weight 55 kg 55 kg Intake: IV 50 / 50 100 / 100 250 / 250 Zosyn 2.25 GM Premix 2.25 gm In 50 / 50 100 / 100 50 ml @ 100 mls/hr IV.SIG Q8H [facility]O Rx#:[id number] Vancomycin Inj 1,000 MG In NS 250 / 250 Inj 250 ML @ 250 mls/hr IV.SIG WITH DIALYSIS LALITO Rx#:[id number] Oral 680 / 680 Output: Urine 510 / 510 Hemodialysis Amount 1500 / 1500 Other: # Voids 1 Date of Last Bowel Movement 10/28/18 10/30/18 10/30/18 # Bowel Movements 1 # Incontinent Bowel Movements 1 Weight On Admission 55 kg Narrative: GENERAL: Elderly A/A male Frail, Alert and oriented. SKIN: Warm and dry.Pallor + NECK: Trachea midline. No JVD. CARDIOVASCULAR: Regular rate and rhythm. Right IJ perma cath. RESPIRATORY: No accessory muscle use.Occ Wheeze upper chest +. Breath sounds are diminished. GASTROINTESTINAL: Abdomen soft, non-tender, nondistended. MUSCULOSKELETAL: Extremities without clubbing, cyanosis, or edema. wasted muscles. Generalized weakness. PSYCHIATRIC: Appropriate mood and affect. Results - Labs CBC & Chem 7: 10/30/18 04:30 10/30/18 04:30 Laboratory Results - last 24 hr 10/30/18 10/30/18 04:30 04:30 WBC 7.5 D RBC 3.09 L Hgb 9.0 L Hct 27.9 L MCV 90.2 MCH 29.0 MCHC 32.1 RDW 19.4 H Plt Count 362 MPV 8.5 Neut % (Auto) 67.5 Lymph % (Auto) 8.8 L Fountain % (Auto) 16.2 H Eos % (Auto) 6.3 H Baso % (Auto) 1.2 Neut # (Auto) 5.1 Lymph # (Auto) 0.7 L [place]ountain # (Auto) 1.2 H Eos # (Auto) 0.5 H Baso # (Auto) 0.1 WBC Differential . Differential Comment Auto diff final Sodium 141 Potassium 3.6 D Chloride 105 Carbon Dioxide 27.4 Anion Gap 9 BUN 54 H Creatinine 5.21 H Estimated GFR 13 L Random Glucose 95 Calcium 8.5 Phosphorus 5.0 H Magnesium 2.1 Microbiology 10/28/18 20:05 Sputum - Expectorated Sputum Gram Stain - Final 10/28/18 20:05 Sputum - Expectorated Sputum Sputum Culture - Preliminary Light growth normal respiratory mu at 24 hours 10/28/18 20:50 Blood - Peripheral Aerobic Blood Culture - Preliminary No growth in 2 days 10/28/18 20:50 Blood - Peripheral Anaerobic Blood Culture - Preliminary No growth in 2 days 10/28/18 21:02 Blood - Peripheral Aerobic Blood Culture - Preliminary No growth in 2 days 10/28/18 21:02 Blood - Peripheral Anaerobic Blood Culture - Preliminary No growth in 2 days - Imaging Impressions Chest X-Ray 10/30/18 04:00 CONCLUSION: The lungs are clear. No infiltrates seen. Assessment and Plan - Assessment (1) Acute kidney failure Code(s): N17.9 - Acute kidney failure, unspecified Status: Acute Onset Date : ~05/22/18 (2) Hydronephrosis Code(s): N13.30 - Unspecified hydronephrosis Status: Acute Onset Date: ~10/28 (3) Weakness Code(s): R53.1 - Weakness Status: Acute (4) Lung nodule Code(s): R91.1 - Solitary pulmonary nodule Status: Acute Onset Date: ~ (5) Obstructive uropathy Code(s): N13.9 - Obstructive and reflux uropathy, unspecified Status: Chronic (6) Vitamin D deficiency Code(s): E55.9 - Vitamin D deficiency, unspecified Status: Acute - Plan 1. Cont on o2 2 L.N/C 2. IS at bedside Q2H 3. Duonebs qid. 4. Continue antibiotics PO 5. Cancel lung Biopsy , since Family refused 6. Continue Symbicort , 2 puffs BID 7. Get F/U CT chest in 2 mths. (1) Acute kidney failure Qualifiers: Acute renal failure type: with other specified pathological lesion Qualified Code(s): N17.8 - Other acute kidney failure (2) Hydronephrosis Qualifiers: Hydronephrosis type: other Qualified Code(s): N13.39 - Other hydronephrosis
--- NOTE | 2018-10-30 20:58 | P.PNNP ---
Subjective Interval history: Patient seen in the afternoon after HD, has mild SOB. Physical Exam Vital signs: Vital Signs 10/29/18 22:00 10/30/18 00:00 10/30/18 02:00 Temperature 98.2 F Pulse Rate 81 82 79 Respiratory Rate 17 Blood Pressure 139/69 Pulse Oximetry 100 10/30/18 04:00 10/30/18 04:04 10/30/18 06:00 Temperature 98.2 F Pulse Rate 74 72 Respiratory Rate 17 17 Blood Pressure 118/59 L Pulse Oximetry 99 10/30/18 07:00 10/30/18 08:00 10/30/18 08:15 Temperature Pulse Rate 75 87 70 Respiratory Rate 14 15 18 Blood Pressure 115/59 L 139/67 128/70 Pulse Oximetry 99 100 100 10/30/18 08:30 10/30/18 08:45 10/30/18 09:00 Temperature Pulse Rate 72 71 78 Respiratory Rate 22 19 12 Blood Pressure 141/80 H 135/73 128/65 Pulse Oximetry 100 100 100 10/30/18 09:15 10/30/18 09:30 10/30/18 09:45 Temperature Pulse Rate 81 81 101 H Respiratory Rate 13 23 23 Blood Pressure 105/60 113/67 103/63 Pulse Oximetry 99 99 99 10/30/18 10:00 10/30/18 10:15 10/30/18 10:30 Temperature Pulse Rate 95 H 96 H 94 H Respiratory Rate 15 16 13 Blood Pressure 104/63 95/54 L 89/58 L Pulse Oximetry 100 100 99 10/30/18 10:45 10/30/18 11:00 10/30/18 11:14 Temperature Pulse Rate 93 H 96 H 102 H Respiratory Rate 15 16 17 Blood Pressure 111/60 101/55 L 99/55 L Pulse Oximetry 100 98 99 10/30/18 12:00 10/30/18 15:46 10/30/18 16:00 Temperature 97.5 F L Pulse Rate 93 H 79 Respiratory Rate 30 H 19 Blood Pressure 97/59 L 101/55 L Pulse Oximetry 99 96 97 10/30/18 20:21 Temperature 97.6 F Pulse Rate 80 Respiratory Rate 18 Blood Pressure 97/53 L Pulse Oximetry 98 Intake & Output 10/30/18 10/30/18 10/31/18 06:59 18:59 06:59 Intake Total 780 / 780 250 / 250 Output Total 510 / 510 1500 / 1500 Balance 270 / 270 -1250 / -1250 Weight 55 kg 55 kg Intake: IV 100 / 100 250 / 250 Zosyn 2.25 GM Premix 2.25 gm In 100 / 100 50 ml @ 100 mls/hr IV.SIG Q8H [facility] Rx#:[id number] Vancomycin Inj 1,000 MG In NS 250 / 250 Inj 250 ML @ 250 mls/hr IV.SIG WITH DIALYSIS [facility]ITO Rx#:[id number] Oral 680 / 680 Output: Urine 510 / 510 Hemodialysis Amount 1500 / 1500 Other: # Voids 1 Date of Last Bowel Movement 10/30/18 10/30/18 # Bowel Movements 1 # Incontinent Bowel Movements 1 Weight On Admission 55 kg Narrative: GENERAL: Elderly A/A male Frail, Alert and oriented. SKIN: Warm and dry.Pallor + NECK: Trachea midline. No JVD. CARDIOVASCULAR: Regular rate and rhythm. Right IJ perma cath. RESPIRATORY: No accessory muscle use.Occ Wheeze upper chest +. Breath sounds are diminished. GASTROINTESTINAL: Abdomen soft, non-tender, nondistended. MUSCULOSKELETAL: Extremities without clubbing, cyanosis, or edema. wasted muscles. Generalized weakness. PSYCHIATRIC: Appropriate mood and affect. Assessment and Plan - Assessment (1) End-stage renal disease on hemodialysis Code(s): N18.6 - End stage renal disease; Z99.2 - Dependence on renal dialysis Status: Acute Plan: Patient with end stage renal disease. Patient has weight loss and not eating well. Has been on HD 3 times a week. Has lung mass and needed Biopsy. Patient's family refused Biopsy. Continue antibiotics for Pneumonia. HD done and tolerated well. (2) Pneumonia Code(s): J18.9 - Pneumonia, unspecified organism Status: Acute Plan: On antibiotics. (3) COPD (chronic obstructive pulmonary disease) Code(s): J44.9 - Chronic obstructive pulmonary disease, unspecified Status: Acute Plan: On breathing treatment and steroids. Followed by Pulmonary (4) Hypertension Code(s): I10 - Essential (primary) hypertension Status: Acute Plan: Blood pressure is better controlled, continue to monitor (5) Lung mass Code(s): R91.8 - Other nonspecific abnormal finding of lung field Status: Acute Plan: Left upper lung nodule and increasing size. Seen by Pulmonary, Biopsy planned
[2018-10-30] MEDS: Famotidine 20 MG Tablet PO SCH (21:37)
[2018-10-31] MEDS: LORazepam 0.5 MG Tablet PO PRN (00:07)
[2018-10-31] MEDS: Piperacil/Tazo 2.25 GM Premix 2.25 GM/50 ML PIGGYBACK IV.SIG SCH ×2 (03:27→12:19)
[2018-10-31] MEDS: Chlorhexidine Gluconate 2% 1 Pack (2 Cloths) TOPICAL SCH (04:30)
--- NOTE | 2018-10-31 08:06 | P.DS ---
Date of admission: 10/23/18 10:08 Primary care physician: UNKNOWN Brief History from admission: pt resides at [facility] has ESRD left lung nodule suspicious for malignancy and recent hospitalization for right sided pneumoniae he frequently refuses dialysis and invariably returns to the hospital with fluid imbalance he missed dialysis yesterday DS: Diagnosis - Discharge Diagnosis (1) Pneumonia Status: Acute (2) End stage renal disease Status: Acute (3) Lung nodule Status: Acute (4) Anemia of renal disease Status: Acute (5) Hypertension Status: Acute DS: Summary Hospital Course: Presented from [facility] for PNA, He is dialysis patient non compliant at times. Pulmonary consulted treated with Zosyn, bronchodilators, oxygen supplement. He was found to have nodule in left lung. Plan was to have biopsy, family refused. Pulmonary recommend FU CT in 2 months. He received dialysis on Sunday 10/28, became hypotensive was transferred to ICU. Remained stable, and was transferred back next day. He He will be transferred back to [facility] to complete rehab. He will cont with Dialysis on // Sat and should be more compliant with tx as his chair time has been changed per his request. - Time Spent with Patient Total time spent providing and/or coordinating discharge services: 30 Less than 30 minutes - Quality: AMI Clinical Trial Participant: No - Quality: Stroke Symptom Onset Unknown: No - Quality: VTE Deep Vein Thrombosis/Pulmonary Embolism Present on Admission: No Exam Vital signs: Vital Signs 10/30/18 08:15 10/30/18 08:30 10/30/18 08:45 Temperature Pulse Rate 70 72 71 Respiratory Rate 18 22 19 Blood Pressure 128/70 141/80 H 135/73 Pulse Oximetry 100 100 100 10/30/18 09:00 10/30/18 09:15 10/30/18 09:30 Temperature Pulse Rate 78 81 81 Respiratory Rate 12 13 23 Blood Pressure 128/65 105/60 113/67 Pulse Oximetry 100 99 99 10/30/18 09:45 10/30/18 10:00 10/30/18 10:15 Temperature Pulse Rate 101 H 95 H 96 H Respiratory Rate 23 15 16 Blood Pressure 103/63 104/63 95/54 L Pulse Oximetry 99 100 100 10/30/18 10:30 10/30/18 10:45 10/30/18 11:00 Temperature Pulse Rate 94 H 93 H 96 H Respiratory Rate 13 15 16 Blood Pressure 89/58 L 111/60 101/55 L Pulse Oximetry 99 100 98 10/30/18 11:14 10/30/18 12:00 10/30/18 15:46 Temperature Pulse Rate 102 H 93 H Respiratory Rate 17 30 H Blood Pressure 99/55 L 97/59 L Pulse Oximetry 99 99 96 10/30/18 16:00 10/30/18 20:21 10/30/18 22:14 Temperature 97.5 F L 97.6 F Pulse Rate 79 80 78 Respiratory Rate 19 18 19 Blood Pressure 101/55 L 97/53 L Pulse Oximetry 97 98 98 10/31/18 00:13 10/31/18 00:37 10/31/18 04:00 Temperature 98.2 F 97.5 F L Pulse Rate 85 82 Respiratory Rate 18 18 18 Blood Pressure 127/66 115/65 Pulse Oximetry 97 95 Intake & Output 10/30/18 10/31/18 10/31/18 18:59 06:59 18:59 Intake Total 250 / 250 300 / 300 Output Total 1500 / 1500 100 / 100 Balance -1250 / -1250 200 / 200 Weight 55 kg 55.3 kg Intake: IV 250 / 250 100 / 100 Zosyn 2.25 GM Premix 2.25 gm In 100 / 100 50 ml @ 100 mls/hr IV.SIG Q8H [facility] Rx#:[id number] Vancomycin Inj 1,000 MG In NS 250 / 250 Inj 250 ML @ 250 mls/hr IV.SIG WITH DIALYSIS LALITO Rx#:[id number] Oral 200 / 200 Output: Urine 100 / 100 Hemodialysis Amount 1500 / 1500 Other: # Voids 1 1 Date of Last Bowel Movement 10/30/18 10/30/18 # Bowel Movements 1 1 Weight On Admission 55 kg - Constitutional no acute distress - Routine HEENT Exam ENT: Present: mucous membranes moist - Routine Neck Exam Present: supple - Routine Respiratory Exam Present: CTA bilaterally, wheezes - Routine Cardiovascular Exam Present: S1, S2 - Routine Abdominal Exam Present: soft, normoactive bowel sounds - Routine Skin Exam Present: dry, warm - Routine Neurological Exam Present: alert, oriented X3 Results Procedures completed during hospitalization: N/A Labs on day of discharge: Preliminary micro results at discharge 10/28/18 20:50 Aerobic Blood Culture - Preliminary Blood - Peripheral No growth in 2 days Anaerobic Blood Culture - Preliminary No growth in 2 days 10/28/18 21:02 Aerobic Blood Culture - Preliminary Blood - Peripheral No growth in 2 days Anaerobic Blood Culture - Preliminary No growth in 2 days - Impressions ITS Impressions Chest CTA 10/23/18 07:53 CONCLUSION: 1. No evidence of pulmonary emboli 2. Enlarging left upper lobe pulmonary nodule characteristic of malignancy. 3. Consolidating airspace disease in the right upper and lower lobes Chest X-Ray 10/30/18 04:00 CONCLUSION: The lungs are clear. No infiltrates seen. Discharge Plan - Discharge Disposition Patient Disposition: 03 Discharge to SNF - Discharge Condition Condition: Fair - Discharge Order Discharge Orders: Discharge Order (Routine); Ordered 10/31/18 Ordered By: Jocy Anguiano ED Use Only Admit Order (Routine); Ordered 10/23/18 Ordered By: Hubert Aldana - Physicians Team Primary Care Provider: UNKNOWN, Attending Provider: Nishant Johnson Other Providers: [facility],Agency ; Juan Green MD ; Jerrod Odonnell MD ; Bo Arnold MD ; Isaac Valenzuela [facility],Agency ; Nishant Johnson DO
[2018-10-31 08:37] VITALS: RESP 19
[2018-10-31] MEDS: Senna/Docusate Sodium 8.6/50 MG Tablet PO SCH (08:40)
[2018-10-31] MEDS: Vitamin B Complex/Vit C/Folic Tablet PO SCH (08:40)
[2018-10-31] MEDS: Pregabalin 25 MG Capsule PO SCH ×2 (08:40→12:19)
[2018-10-31] MEDS: predniSONE 10 MG Tablet PO SCH (08:40)
[2018-10-31] MEDS: Azithromycin 250 MG Tablet PO SCH (08:41)
[2018-10-31] MEDS: Heparin - SQ 10,000 UNITS/ML Vial SQ SCH (08:41)
[2018-10-31] MEDS: guaiFENesin 600 MG ER Tablet PO SCH (10:27)
[2018-10-31] MEDS: Budesonide-Formoterol 160/4.5 MCG 6 GM Inhaler INH SCH (10:27)
--- NOTE | 2018-10-31 12:39 | P.PNNP ---
Subjective Interval history: No acute events overnight, plans for discharge today to SNF. <Marcy Gardner - Last Filed: 10/31/18 12:37> Physical Exam Vital signs: Vital Signs 10/30/18 15:46 10/30/18 16:00 10/30/18 20:21 Temperature 97.5 F L 97.6 F Pulse Rate 79 80 Respiratory Rate 19 18 Blood Pressure 101/55 L 97/53 L Pulse Oximetry 96 97 98 10/30/18 22:14 10/31/18 00:13 10/31/18 00:37 Temperature 98.2 F Pulse Rate 78 85 Respiratory Rate 19 18 18 Blood Pressure 127/66 Pulse Oximetry 98 97 10/31/18 04:00 10/31/18 08:00 Temperature 97.5 F L 97.2 F L Pulse Rate 82 88 Respiratory Rate 18 19 Blood Pressure 115/65 94/53 L Pulse Oximetry 95 96 Intake & Output 10/30/18 10/31/18 10/31/18 18:59 06:59 18:59 Intake Total 250 / 250 300 / 300 Output Total 1500 / 1500 100 / 100 Balance -1250 / -1250 200 / 200 Weight 55 kg 55.3 kg Intake: IV 250 / 250 100 / 100 Zosyn 2.25 GM Premix 2.25 gm In 100 / 100 50 ml @ 100 mls/hr IV.SIG Q8H [facility] Rx#:[id number] Vancomycin Inj 1,000 MG In NS 250 / 250 Inj 250 ML @ 250 mls/hr IV.SIG WITH DIALYSIS LALITO Rx#:[id number] Oral 200 / 200 Output: Urine 100 / 100 Hemodialysis Amount 1500 / 1500 Other: # Voids 1 1 Date of Last Bowel Movement 10/30/18 10/30/18 10/30/18 # Bowel Movements 1 1 Weight On Admission 55 kg Narrative: GENERAL: Elderly A/A male Frail, Alert and oriented. SKIN: Warm and dry.Pallor + NECK: Trachea midline. No JVD. CARDIOVASCULAR: Regular rate and rhythm. Right IJ perma cath. RESPIRATORY: No accessory muscle use.Breath sounds are diminished. GASTROINTESTINAL: Abdomen soft, non-tender, nondistended. MUSCULOSKELETAL: Extremities without clubbing, cyanosis, or edema. wasted muscles. Generalized weakness. PSYCHIATRIC: Appropriate mood and affect. <Marcy Gardner - Last Filed: 10/31/18 12:37> Vital signs: Vital Signs 10/30/18 22:14 10/31/18 00:13 10/31/18 00:37 Temperature 98.2 F Pulse Rate 78 85 Respiratory Rate 19 18 18 Blood Pressure 127/66 Pulse Oximetry 98 97 10/31/18 04:00 10/31/18 08:00 10/31/18 12:00 Temperature 97.5 F L 97.2 F L 97.3 F L Pulse Rate 82 88 99 H Respiratory Rate 18 19 19 Blood Pressure 115/65 94/53 L 114/55 L Pulse Oximetry 95 96 96 10/31/18 16:00 Temperature 97.7 F Pulse Rate 88 Respiratory Rate 19 Blood Pressure 106/55 L Pulse Oximetry 99 Intake & Output 10/31/18 10/31/18 11/01/18 06:59 18:59 06:59 Intake Total 300 / 300 50 / 50 Output Total 100 / 100 Balance 200 / 200 50 / 50 Weight 55.3 kg Intake: IV 100 / 100 50 / 50 Zosyn 2.25 GM Premix 2.25 gm In 100 / 100 50 / 50 50 ml @ 100 mls/hr IV.SIG Q8H [facility]O Rx#:[id number] Oral 200 / 200 Output: Urine 100 / 100 Other: # Voids 1 5 Date of Last Bowel Movement 10/30/18 10/30/18 # Bowel Movements 1 <Filemon Green Q - Last Filed: 10/31/18 21:16> Assessment and Plan - Assessment (1) End-stage renal disease on hemodialysis Code(s): N18.6 - End stage renal disease; Z99.2 - Dependence on renal dialysis Status: Acute Plan: Patient with end stage renal disease. Patient has weight loss and not eating well. Has been on HD 3 times a week. Has lung mass and needed Biopsy. Patient's family refused Biopsy. Continue antibiotics for Pneumonia. HD done and tolerated well. Plan for discharge today to SNF (2) Pneumonia Code(s): J18.9 - Pneumonia, unspecified organism Status: Acute Plan: On antibiotics. (3) COPD (chronic obstructive pulmonary disease) Code(s): J44.9 - Chronic obstructive pulmonary disease, unspecified Status: Acute Plan: On breathing treatment and steroids. Followed by Pulmonary (4) Hypertension Code(s): I10 - Essential (primary) hypertension Status: Acute Plan: Blood pressure is better controlled, continue to monitor (5) Lung mass Code(s): R91.8 - Other nonspecific abnormal finding of lung field Status: Acute Plan: Left upper lung nodule and increasing size. Seen by Pulmonary, Biopsy planned <Marcy Gardner - Last Filed: 10/31/18 12:37> - Assessment (1) End-stage renal disease on hemodialysis Code(s): N18.6 - End stage renal disease; Z99.2 - Dependence on renal dialysis Status: Acute Plan: Patient seen and examined, agree with above. Patient and family refused lung Biopsy. HD done today. (2) Pneumonia Code(s): J18.9 - Pneumonia, unspecified organism Status: Acute (3) COPD (chronic obstructive pulmonary disease) Code(s): J44.9 - Chronic obstructive pulmonary disease, unspecified Status: Acute (4) Hypertension Code(s): I10 - Essential (primary) hypertension Status: Acute (5) Lung mass Code(s): R91.8 - Other nonspecific abnormal finding of lung field Status: Acute <Juan Green - Last Filed: 10/31/18 21:16> Progress Note: Quality - AMI Clinical Trial Participant: No <Marcy Gardner - Last Filed: 10/31/18 12:37>
[2018-10-31 17:33] VITALS: BP 106/55; PULSE 88; TEMP 97.7; O2SAT 99
--- NOTE | 2018-10-31 18:02 | P.PN ---
Subjective Interval history: Refused lung Biopsy .No SOB or cough. Stable overall. Need F/U CT chest in 2 mths. Physical Exam Vital signs: Vital Signs 10/30/18 20:21 10/30/18 22:14 10/31/18 00:13 Temperature 97.6 F 98.2 F Pulse Rate 80 78 85 Respiratory Rate 18 19 18 Blood Pressure 97/53 L 127/66 Pulse Oximetry 98 98 97 10/31/18 00:37 10/31/18 04:00 10/31/18 08:00 Temperature 97.5 F L 97.2 F L Pulse Rate 82 88 Respiratory Rate 18 18 19 Blood Pressure 115/65 94/53 L Pulse Oximetry 95 96 10/31/18 12:00 10/31/18 16:00 Temperature 97.3 F L 97.7 F Pulse Rate 99 H 88 Respiratory Rate 19 19 Blood Pressure 114/55 L 106/55 L Pulse Oximetry 96 99 Intake & Output 10/30/18 10/31/18 10/31/18 18:59 06:59 18:59 Intake Total 250 / 250 300 / 300 50 / 50 Output Total 1500 / 1500 100 / 100 Balance -1250 / -1250 200 / 200 50 / 50 Weight 55 kg 55.3 kg Intake: IV 250 / 250 100 / 100 50 / 50 Zosyn 2.25 GM Premix 2.25 gm In 100 / 100 50 / 50 50 ml @ 100 mls/hr IV.SIG Q8H LAL[facility]O Rx#:[id number] Vancomycin Inj 1,000 MG In NS 250 / 250 Inj 250 ML @ 250 mls/hr IV.SIG WITH DIALYSIS [facility]O Rx#:[id number] Oral 200 / 200 Output: Urine 100 / 100 Hemodialysis Amount 1500 / 1500 Other: # Voids 1 1 Date of Last Bowel Movement 10/30/18 10/30/18 10/30/18 # Bowel Movements 1 1 Weight On Admission 55 kg Narrative: GENERAL: Elderly A/A male Frail, Alert and oriented. SKIN: Warm and dry.Pallor + NECK: Trachea midline. No JVD. CARDIOVASCULAR: Regular rate and rhythm. RESPIRATORY: No accessory muscle use.Breath sounds are diminished. GASTROINTESTINAL: Abdomen soft, non-tender, nondistended. MUSCULOSKELETAL: Extremities without clubbing, cyanosis, or edema. wasted muscles. Generalized weakness. PSYCHIATRIC: Appropriate mood and affect.Neuro : No gross deficits. Results - Labs CBC & Chem 7: 10/30/18 04:30 10/30/18 04:30 Microbiology 10/28/18 20:50 Blood - Peripheral Aerobic Blood Culture - Preliminary No growth in 3 days 10/28/18 20:50 Blood - Peripheral Anaerobic Blood Culture - Preliminary No growth in 3 days 10/28/18 21:02 Blood - Peripheral Aerobic Blood Culture - Preliminary No growth in 3 days 10/28/18 21:02 Blood - Peripheral Anaerobic Blood Culture - Preliminary No growth in 3 days 10/28/18 20:05 Sputum - Expectorated Sputum Gram Stain - Final 10/28/18 20:05 Sputum - Expectorated Sputum Sputum Culture - Final Light growth normal respiratory mu - Procedures N/A Assessment and Plan - Assessment (1) Acute kidney failure Code(s): N17.9 - Acute kidney failure, unspecified Status: Acute Onset Date : ~05/22/18 (2) Hydronephrosis Code(s): N13.30 - Unspecified hydronephrosis Status: Acute Onset Date: ~10/28 (3) Weakness Code(s): R53.1 - Weakness Status: Acute (4) Lung nodule Code(s): R91.1 - Solitary pulmonary nodule Status: Acute Onset Date: ~ (5) Obstructive uropathy Code(s): N13.9 - Obstructive and reflux uropathy, unspecified Status: Chronic (6) Vitamin D deficiency Code(s): E55.9 - Vitamin D deficiency, unspecified Status: Acute - Plan 1. Cont on o2 2 L.N/C 2. IS at bedside Q2H 3. Duonebs BID 4. Continue antibiotics PO 5. Cancel lung Biopsy , since Family refused 6. Continue Symbicort , 2 puffs BID 7. F/U CT chest in 2 mths. Progress Note: Quality - AMI Clinical Trial Participant: No (1) Acute kidney failure Qualifiers: Acute renal failure type: with other specified pathological lesion Qualified Code(s): N17.8 - Other acute kidney failure (2) Hydronephrosis Qualifiers: Hydronephrosis type: other Qualified Code(s): N13.39 - Other hydronephrosis
== END 2018-10-31 18:26 ==
LOC: NEPC 06:39 → NEDA 10:08 → N05 18:34 → HIMC 10-28 19:50 → N06 10-30 12:59
PROVIDERS: ADMIT Family Medicine; ATTEND Family Medicine

== ENCOUNTER 2018-11-15 12:46 | Inpatient (IN) ==
[2018-11-15] MEDS ORDERED: Sodium Chlor 0.9% Inj 500 ML IV.SIG ONE (13:01)
--- NOTE | 2018-11-15 13:10 | ED ---
HPI General Chief Complaint: Altered Mental Status Stated Complaint: AMS Time Seen by Provider: 11/15/18 13:06 Source: patient and EMS Mode of arrival: EMS Limitations: altered mental status History of Present Illness HPI narrative: 83-year-old male with PMH of ESRD, COPD, anemia of renal disease , hypertension presents to the ED via EMS from his [facility]. According to the nurses in the [facility] the patient has been refusing to go to dialysis for the last 3 days. On presentation the patient is alert to voice and knows that he is at [facility]. He otherwise closes his eyes and turns his head to any questioning. I reviewed the patient's record it appears he is being treated for MRSA pneumonia as of 11/13/[address] Johnson. Patient is unable to provide any other meaningful history. Related Data Home Medications Medication Instructions Recorded Confirmed brimonidine [Alphagan P] 1 drp EACH EYE BID 09/16/18 11/15/18 cxmbgjgdjj-jqehjldkrlzem-welj 1 cap PO Q4H PRN 09/16/18 11/15/18 [Fioricet] latanoprost [Xalatan] 1 drp EACH EYE QPM 09/16/18 11/15/18 losartan 50 mg PO DAILY 09/16/18 11/15/18 pregabalin [Lyrica] 25 mg PO TID 09/16/18 11/15/18 tamsulosin 0.8 mg PO HS 09/16/18 11/15/18 doxepin 25 mg PO DAILY 10/08/18 11/15/18 acetaminophen 325 mg PO Q4H PRN 10/23/18 11/15/18 fluticasone-salmeterol [Advair 1 inh INHALATION BID 10/23/18 11/15/18 Diskus] guaifenesin 600 mg PO Q12H 10/23/18 11/15/18 magnesium hydroxide [Milk of 30 ml PO DAILY PRN 10/23/18 11/15/18 Magnesia] ondansetron HCl [Zofran] 4 mg PO TID PRN 10/23/18 11/15/18 vitamin B complex 1 tab PO DAILY 10/23/18 11/15/18 Previous Rx's Medication Instructions Recorded lorazepam 0.5 mg PO Q8H PRN tab 10/14/18 nitroglycerin [Nitrostat] 0.4 mg SUBLINGUAL Q5M PRN tab 10/14/18 oxycodone-acetaminophen 1 tab PO Q4H PRN tab 10/14/18 prednisone 5 mg PO DAILY #0 tab 10/14/18 ipratropium-albuterol 1 amp NEB Q4HR NEB ml 10/31/18 Allergies Allergy/AdvReac Type Severity Reaction Status Date / Time No Known Allergies Allergy Verified 11/15/18 12:57 Review of Systems ROS Unobtainable ROS Unobtainable: unobtainable due to mental status [facility] Medical History Medical History BPH loc w urin obs/LUTS (Acute) COPD (chronic obstructive pulmonary disease) (Acute) Hypertension (Acute) Anemia (Acute) Degenerative disc disease (Acute) ESRD (end stage renal disease) on dialysis (Acute) GERD (gastroesophageal reflux disease) (Acute) History of alcohol dependence (Acute) History of squamous cell carcinoma (Acute) Surgical History Surgical History H/O hernia repair (Acute) Family History Family History Other Family history of cancer Social History Social History Substance History: Unable to Obtain Second Hand Smoke Exposure: No Smoking Status: Unknown if ever smoked Tobacco Type: Cigarettes Packs Per Day: 2 Cigarettes Per Day: 40.0 Years Smoked: 40 Pack-Years: 80.00 years: 80 How Often Do You Have a Drink Containing Alcohol: Unable to Obtain Recent Travel in [facility] within the Last 8 Weeks: No Recent Out of Country Travel within the Last 8 Weeks: No Immunization History Tetanus Immunization: Unable to Assess Exam Narrative Exam Narrative: GENERAL: Thin, chronically ill-appearing -[place] male in no acute distress. Opens his eyes to voice. Alert to self and situation. SKIN: Focused skin assessment warm/dry. Port in the right chest. No signs of infection. HEAD: Atraumatic. Normocephalic. EYES: Pupils equal and round. No scleral icterus. No injection or drainage. Arcus senilis noted. ENT: No nasal bleeding or discharge. Mucous membranes pink and moist. NECK: Trachea midline. No JVD. CARDIOVASCULAR: Regular rate and rhythm. No murmur appreciated. RESPIRATORY: No accessory muscle use. Mild rhonchi in lung [place] bilaterally.. Breath sounds equal bilaterally. GASTROINTESTINAL: Abdomen soft, non-tender, nondistended. No palpable masses. Hypoactive bowel sounds. MUSCULOSKELETAL: No obvious deformities. No clubbing. No cyanosis. No edema. NEUROLOGICAL: Somnolent, arouses to voice.. No obvious cranial nerve deficits. Motor testing limited. Slurred speech with drooping of the right side of the face. Course Initial Documented Vital Signs Temperature 99.1 F 11/15/18 12:57 Pulse Rate 97 H 11/15/18 12:57 Respiratory Rate 18 11/15/18 12:57 Blood Pressure 121/79 11/15/18 12:57 Pulse Oximetry 90 L 11/15/18 12:57 Last Documented Vital Signs Temperature 99.9 F H 11/15/18 13:44 Pulse Rate 93 H 11/15/18 13:52 Respiratory Rate 22 11/15/18 13:01 Blood Pressure 141/79 H 11/15/18 13:01 Pulse Oximetry 95 11/15/18 13:53 Medical Decision Making NICA Attestation NICA supervised visit: Yes Attestation: I, Dr. Waters, have reviewed the advance practice practitioner's documentation and am in agreement, met with the patient face to face, made the diagnosis, and the medical decision making was done by me. *My assessment and Findings: Patient has altered mental status. He is pretty somnolent. He will open his eyes to loud voice or painful stimuli but does not converse or follow commands. He is reportedly missed dialysis. Extensive workup is underway including brain CT and labs etc. He will require hospitalization. He is too altered for discharge. Workup is reviewed. He has hyperkalemia of 5.9 and elevated creatinine. He will need dialysis in the near future. He will be admitted MDM Narrative Medical Screen Exam Complete: Yes Emergency Medical Condition: Yes Differential Diagnosis Differential Diagnosis: Renal failure versus metabolic derangement versus pneumonia versus sepsis versus other Lab Data Result diagrams: 11/15/18 13:10 11/15/18 13:10 Lab Results 11/15/18 11/15/18 11/15/18 Range/Units 13:10 13:10 13:10 WBC 9.4 (4.0-11.0) th/mm3 RBC 3.48 L (4.50-5.90) mil/mm3 Hgb 10.0 L (13.0-17.0) gm/dL Hct 31.6 L (39.0-51.0) % MCV 90.9 (80.0-100.0) fL MCH 28.7 (27.0-34.0) pg MCHC 31.6 L (32.0-36.0) % RDW 21.0 H (11.6-17.2) % Plt Count 266 (150-450) th/mm3 MPV 7.7 (7.0-11.0) fL Prelim Diff (Auto) Slide review pending Neut % (Auto) 69.3 (16.0-70.0) % Lymph % (Auto) 9.4 (9.0-44.0) % [place] % (Auto) 14.0 H (0.0-8.0) % Eos % (Auto) 6.8 H (0.0-4.0) % Baso % (Auto) 0.5 (0.0-2.0) % Neut # (Auto) 6.5 (1.8-7.7) th/mm3 Lymph # (Auto) 0.9 L (1.0-4.8) th/mm3 [place] # (Auto) 1.3 H (0.0-0.9) th/mm3 Eos # (Auto) 0.6 H (0.0-0.4) th/mm3 Baso # (Auto) 0.0 (0.0-0.2) th/mm3 WBC Differential . Diff Scan Auto diff confirmed Differential Comment . Ovalocytes 1+ H (None) Acanthocytes (Spur) Occ H (None) PT 11.0 (9.8-11.6) sec INR 1.1 Ratio Sodium 140 (136-145) meq/L Potassium 5.9 H (3.5-5.1) meq/L Chloride 105 (98-107) meq/L Carbon Dioxide 22.0 (21.0-32.0) meq/L Anion Gap 13 (5-15) meq/L BUN 116 H (7-18) mg/dL Creatinine 14.06 H* (0.60-1.30) mg/dL Estimated GFR 4 L (>89) mL/min Random Glucose 95 (74-106) mg/dL Lactic Acid (0.4-2.0) mmol/L Calcium 8.8 (8.5-10.1) mg/dL Magnesium 2.8 H (1.5-2.5) mg/dL Total Bilirubin 0.8 (0.2-1.0) mg/dL AST 16 (15-37) U/L ALT 18 (12-78) U/L Alkaline Phosphatase 65 (45-117) U/L Ammonia (11-32) mcmol/L Troponin I Less than 0.02 L (0.02-0.05) ng/mL Total Protein 7.7 (6.4-8.2) g/dL Albumin 2.4 L (3.4-5.0) g/dL Blood Type Antibody Screen 11/15/18 11/15/18 11/15/18 Range/Units 13:10 13:14 13:14 WBC (4.0-11.0) th/mm3 RBC (4.50-5.90) mil/mm3 Hgb (13.0-17.0) gm/dL Hct (39.0-51.0) % MCV (80.0-100.0) fL MCH (27.0-34.0) pg MCHC (32.0-36.0) % RDW (11.6-17.2) % Plt Count (150-450) th/mm3 MPV (7.0-11.0) fL Prelim Diff (Auto) Neut % (Auto) (16.0-70.0) % Lymph % (Auto) (9.0-44.0) % [place] % (Auto) (0.0-8.0) % Eos % (Auto) (0.0-4.0) % Baso % (Auto) (0.0-2.0) % Neut # (Auto) (1.8-7.7) th/mm3 Lymph # (Auto) (1.0-4.8) th/mm3 [place] # (Auto) (0.0-0.9) th/mm3 Eos # (Auto) (0.0-0.4) th/mm3 Baso # (Auto) (0.0-0.2) th/mm3 WBC Differential Diff Scan Differential Comment Ovalocytes (None) Acanthocytes ([place]) (None) PT (9.8-11.6) sec INR Ratio Sodium (136-145) meq/L Potassium (3.5-5.1) meq/L Chloride (98-107) meq/L Carbon Dioxide (21.0-32.0) meq/L Anion Gap (5-15) meq/L BUN (7-18) mg/dL Creatinine (0.60-1.30) mg/dL Estimated GFR (>89) mL/min Random Glucose (74-106) mg/dL Lactic Acid 0.7 (0.4-2.0) mmol/L Calcium (8.5-10.1) mg/dL Magnesium (1.5-2.5) mg/dL Total Bilirubin (0.2-1.0) mg/dL AST (15-37) U/L ALT (12-78) U/L Alkaline Phosphatase (45-117) U/L Ammonia Less than 10 L (11-32) mcmol/L Troponin I (0.02-0.05) ng/mL Total Protein (6.4-8.2) g/dL Albumin (3.4-5.0) g/dL Blood Type A Positive Antibody Screen Negative Imaging Data Radiologist's impression: Chest X-Ray 11/15/18 13:01 CONCLUSION: No acute cardiopulmonary disease. Head CT 11/15/18 13:01 CONCLUSION: Chronic small vessel ischemic and atrophic changes. Discharge Plan Discharge Disposition Patient Disposition: ED Admit(ED Internal Use Only) Discharge Condition Condition: Stable Discharge Order Discharge Orders: ED Use Only Admit Order (Routine); Ordered 11/15/18 Ordered By: Tanya Grajeda Physicians Team ED Provider: Rah Waters ED Midlevel Provider: Tanya Grajeda Primary Care Provider: Nishant Johnson Attending Provider: Maryann Gao Status ED Status: Admitted Patient
[2018-11-15 13:34] LABS: Baso % (Auto) 0.5 % (0.0-2.0); Eos # (Auto) 0.6 th/mm3 (0.0-0.4); Eos % (Auto) 6.8 % (0.0-4.0); Hematocrit 31.6 % (39.0-51.0); Lymph # (Auto) 0.9 th/mm3 (1.0-4.8); Lymph % (Auto) 9.4 % (9.0-44.0); Mean Corpuscular HGB Conc 31.6 % (32.0-36.0); Mean Corpuscular Hemoglobin 28.7 pg (27.0-34.0); Mean Corpuscular Volume 90.9 fL (80.0-100.0); Mean Platelet Volume 7.7 fL (7.0-11.0); Mono # (Auto) 1.3 th/mm3 (0.0-0.9); Neut # (Auto) 6.5 th/mm3 (1.8-7.7); Neut % (Auto) 69.3 % (16.0-70.0); Platelet Count 266 th/mm3 (150-450); Red Blood Count 3.48 mil/mm3 (4.50-5.90); White Blood Count 9.4 th/mm3 (4.0-11.0)
[2018-11-15 13:41] LABS: INR 1.1 Ratio
--- NOTE | 2018-11-15 13:45 | XR ---
EXAM DATE: 11/15/2018 1:35 PM EST AGE/SEX: 83 years / Male INDICATIONS: Fever. CLINICAL DATA: This is the patient's initial encounter. Patient reports that signs and symptoms have been present for 1 day and indicates a pain score of Nonresponsive. MEDICAL/SURGICAL HISTORY: . Hypertension. Anemia. Chronic obstructive pulmonary disease. End St age Renal Disease. None. COMPARISON: [facility] [place], CHEST 1V SINGLE AP, 10/30/2018. . FINDINGS: The lungs are clear without infiltrate, nodule, or mass. There is no appreciable pleural effusion for technique. Heart and mediastinum are unremarkable. Right IJ line is present with tip overlapping the expected region of the SVC. CONCLUSION: No acute cardiopulmonary disease. Electronically signed by: Michael Wu MD Board Certified Radiologist 11/15/2018 1:43 PM EST
[2018-11-15 13:51] LABS: Alanine Aminotransferase 18 U/L (12-78); Albumin 2.4 g/dL (3.4-5.0); Anion Gap 13 meq/L (5-15); Aspartate Aminotransferase 16 U/L (15-37); Blood Urea Nitrogen 116 mg/dL (7-18); Calcium 8.8 mg/dL (8.5-10.1); Chloride 105 meq/L (98-107); Glomerular Filtration Rate 4 mL/min (>89); Glucose,Random 95 mg/dL (74-106); Magnesium 2.8 mg/dL (1.5-2.5); Potassium 5.9 meq/L (3.5-5.1); Sodium 140 meq/L (136-145)
[2018-11-15 13:55] LABS: Alkaline Phosphatase 65 U/L (45-117); Total Protein 7.7 g/dL (6.4-8.2)
[2018-11-15 14:22] LABS: Acanthocytes Occ; Ovalocytes 1+
[2018-11-15] MEDS ORDERED: Azithromycin Inj 500 MG in Sodium Chlor 0.9% Inj 250 ML IV.SIG ONE (14:58)
[2018-11-15] MEDS ORDERED: Vancomycin Consult Pharmacy OTHER PRN (14:58)
[2018-11-15] MEDS ORDERED: Piperacil/Tazo 2.25 GM Premix 2.25 GM/50 ML PIGGYBACK IV.SIG ONE (15:00)
--- NOTE | 2018-11-15 15:04 | CT ---
EXAM DATE: 11/15/2018 2:54 PM EST AGE/SEX: 83 years / Male INDICATIONS: Altered mental status. CLINICAL DATA: This is the patient's initial encounter. Patient reports that signs and symptoms have been present for 1 day and indicates a pain score of 0/10. MEDICAL/SURGICAL HISTORY: Chronic obstructive pulmonary disease. Gastroesophageal reflux disease. Degenerative disc disease, hypertension, squamous cell cancer. . Hernia repair. RADIATION DOSE: 34.24 CTDI (mGy) COMPARISON: [facility] – [place], CT HEAD W/O CONTRAST, 07/24/2018. . TECHNIQUE: CT of the head without contrast. Using automated exposure control and adjustment of the mA and/or kV according to patient size, radiation dose was kept as low as reasonably achievable to ob tain optimal diagnostic quality images. DICOM format image data is available electronically for revi ew and comparison. FINDINGS: There is no evidence for intracranial hemorrhage, mass effect, mass lesions, or edema. The visualize d bony structures appear intact. Moderate degree of brain atrophy is seen. Moderate periventricular white matter changes are seen nonspecific mostly consistent with chronic small vessel ischemic change s. There are no signs of acute infarction for technique. CONCLUSION: Chronic small vessel ischemic and atrophic changes. Electronically signed by: Michael Wu MD Board Certified Radiologist 11/15/2018 3:03 PM EST
[2018-11-15 15:46] LABS: Bilirubin,Urine Negative (Negative); Clarity,Urine Clear (Clear); Color,Urine Yellow (Yellw/Straw); Glucose,Urine (UA) Negative (Negative); Leukocyte Esterase,Urine Trace (Negative); Nitrite,Urine Negative (Negative); Specific Gravity,Urine 1.011 (1.002-1.035); Squamous Epithelial Cell,Urine 1 /hpf (0-5)
[2018-11-15] MEDS ORDERED: Acetaminophen 325 MG Tablet PO PRN ×2 (15:47→17:15)
[2018-11-15] MEDS ORDERED: Bisacodyl 10 MG Supp RECTAL PRN (15:47)
--- NOTE | 2018-11-15 16:11 | P.HPIM ---
History of Present Illness Primary Care Physician: Nishant Johnson DO Chief Complaint: I don't know why I am here History of Present Illness: 83-year-old white male who is a resident of [facility] with a history of end-stage renal disease on hemodialysis with a history of noncompliance, BPH, COPD, recent left upper lobe lung nodule which the family has declined a biopsy for further evaluation, anemia chronic disease who was sent to the emergency room from his senior living due to altered mental status and lethargy due to patient refusing to go to dialysis for the last 3 days. He was recently hospitalized for pneumonia with findings of a lung nodule in which he and family declined a lung biopsy for further evaluation and discharge on October 31. At this time, patient is extremely sleepy but arousable to voice and stimuli. He is confused and thinks that he is at home. He does not know the year. Due to his altered mental status, I am unable to get further history from the patient. Most of the history is reviewed from reviewing old medical records. Diagnosis (1) Acute metabolic encephalopathy: (2) Anemia of renal disease: (3) End stage renal disease: (4) Hyperkalemia: Inpatient Certification Inpatient Certification: I certify that the inpatient services were ordered in accordance with Medicare regulations governing the order. This includes certification that hospital inpatient services are reasonable and necessary and in the case of services not specified as inpatient-only under 42 CFR 419.22(n), that they are appropriately provided as inpatient services in accordance to with the 2-midnight benchmark under 43 CFR 412.3(e) Estimated Total Length of Stay (Days): 4 Plans for Post Hospital Care: SNF Review of Systems ROS Unobtainable: unobtainable due to mental status PMFSH Medical History Medical History BPH loc w urin obs/LUTS (Chronic) COPD (chronic obstructive pulmonary disease) (Chronic) Hypertension (Chronic) Anemia (Chronic) Degenerative disc disease (Chronic) ESRD (end stage renal disease) on dialysis (Chronic) GERD (gastroesophageal reflux disease) (Chronic) History of alcohol dependence (Chronic) History of squamous cell carcinoma (Chronic) Surgical History Surgical History H/O hernia repair (Chronic) Family History Family History Other Family history of cancer Social History Social History Substance History: Unable to Obtain Second Hand Smoke Exposure: No Smoking Status: Unknown if ever smoked Tobacco Type: Cigarettes Packs Per Day: 2 Cigarettes Per Day: 40.0 Years Smoked: 40 Pack-Years: 80.00 years: 80 How Often Do You Have a Drink Containing Alcohol: Unable to Obtain Recent Travel [facility] within the Last 8 Weeks: No Recent Out of Country Travel within the Last 8 Weeks: No Immunization History Tetanus Immunization: Unable to Assess Medications and Allergies Allergies Allergy/AdvReac Type Severity Reaction Status Date / Time No Known Allergies Allergy Verified 11/15/18 12:57 Home Medications Medication Instructions Recorded Confirmed Type brimonidine [Alphagan P] 1 drp EACH EYE BID 09/16/18 11/15/18 History gjonqnojhv-rxdidqukqedvb-gebr 1 cap PO Q4H PRN 09/16/18 11/15/18 History [Fioricet] latanoprost [Xalatan] 1 drp EACH EYE QPM 09/16/18 11/15/18 History losartan 50 mg PO DAILY 09/16/18 11/15/18 History pregabalin [Lyrica] 25 mg PO TID 09/16/18 11/15/18 History tamsulosin 0.8 mg PO HS 09/16/18 11/15/18 History doxepin 25 mg PO DAILY 10/08/18 11/15/18 History acetaminophen 325 mg PO Q4H PRN 10/23/18 11/15/18 History fluticasone-salmeterol [Advair 1 inh INHALATION BID 10/23/18 11/15/18 History Diskus] guaifenesin 600 mg PO Q12H 10/23/18 11/15/18 History magnesium hydroxide [Milk of 30 ml PO DAILY PRN 10/23/18 11/15/18 History Magnesia] ondansetron HCl [Zofran] 4 mg PO TID PRN 10/23/18 11/15/18 History vitamin B complex 1 tab PO DAILY 10/23/18 11/15/18 History Active Medications: Active Medications Acetaminophen (Tylenol) 650 mg PO Q4H PRN PRN Reason: Temp > 100.4 Al Hydroxide/Mg Hydroxide (Milk Of Magnesia Liq) 30 ml PO Q12H PRN PRN Reason: Mild Constipation Bisacodyl (Dulcolax Supp) 10 mg RECTAL DAILY PRN PRN Reason: SEVERE CONSITIPATION Heparin Sodium (Porcine) (Heparin Inj) 5,000 units SQ Q12H LALITO Lactulose (Lactulose Liq) 30 ml PO DAILY PRN PRN Reason: SEVERE CONSITIPATION Ondansetron HCl (Zofran Inj) 4 mg IV.PUSH Q6H PRN PRN Reason: NAUSEA OR VOMITING Pharmacy Profile Note (Vancomycin Consult Pharmacy) 1 each OTHER UNSCH PRN PRN Reason: Pharmacy to dose Senna/Docusate Sodium (Denise-Colace) 1 tab PO BID LALITO Sennosides (Senokot) 17.2 mg PO Q12H PRN PRN Reason: Moderate Constipation Sodium Chloride (Ns Flush) 2 ml IV.FLUSH BID LALITO Sodium Chloride (Ns Flush) 2 ml IV.FLUSH PRN PRN PRN Reason: FLUSH AFTER USING IV ACCESS Physical Exam Vital signs: Last Vital Signs Temp 99.9 F H 11/15/18 13:44 Pulse 93 H 11/15/18 13:52 Resp 22 11/15/18 13:01 BP 141/79 H 11/15/18 13:01 Pulse Ox 95 11/15/18 13:53 Intake & Output 11/13/18 11/14/18 11/15/18 11/16/18 06:59 06:59 06:59 06:59 Intake Total 500 / 500 Balance 500 / 500 Weight 63.503 kg Narrative: GENERAL: Well-developed, thin -Lebanese male laying in bed extremely sleepy and confused. SKIN: Warm and dry. HEAD: Atraumatic. Normocephalic. EYES: Pupils equal and round. No scleral icterus. No injection or drainage. ENT: No nasal bleeding or discharge. Mucous membranes pink and moist. NECK: Trachea midline. No JVD. CARDIOVASCULAR: Regular rate and rhythm. Right IJ permacath in place. RESPIRATORY: No accessory muscle use. Clear to auscultation. Breath sounds equal bilaterally. GASTROINTESTINAL: Abdomen soft, non-tender, nondistended. Hepatic and splenic margins not palpable. MUSCULOSKELETAL: Extremities without clubbing, cyanosis, or edema. No obvious deformities. NEUROLOGICAL: Somnolent, but arouses with voice and stimuli, confused, thinks that he is at home, does not know the year or situation. Unable to do further neurological exam due to patient's somnolent status. Results Labs CBC & Chem 7: 11/15/18 13:10 11/15/18 13:10 Imaging Impressions Chest X-Ray 11/15/18 13:01 CONCLUSION: No acute cardiopulmonary disease. Head CT 11/15/18 13:01 CONCLUSION: Chronic small vessel ischemic and atrophic changes. ECG Attestation: I personally reviewed and interpreted this ECG as follows: Prior ECG tracings: not available for review Interpretation: Normal sinus rhythm with heart rate of 96 Caprini VTE Risk Assessment Caprini VTE Risk Assessment: Moderate/High Risk (score >= 2) Caprini Risk Assessment Model: Point Value = 1 Point Value = 2 Point Value = 3 Point Value = 5 Age 41-60 Minor surgery BMI > 25 kg/m2 Swollen legs Varicose veins or History of unexplained or recurrent spontaneous Oral contraceptives or hormone replacement Sepsis (< 1 month) Serious lung disease, including pneumonia (< 1 month) Abnormal pulmonary function Acute myocardial infarction Congestive heart failure (< 1 month) History of inflammatory bowel disease Medical patient at bed rest Age 61-74 Arthroscopic surgery Major open surgery (> 45 min) Laparoscopic surgery (> 45 min) Malignancy Confined to bed (> 72 hours) Immobilizing plaster cast Central venous access Age >= 75 History of VTE Family history of VTE Factor V Leiden Prothrombin [id number] Lupus anticoagulant Anticardiolipin antibodies Elevated serum homocysteine Heparin-induced thrombocytopenia Other congenital or acquired thrombophilia Stroke (< 1 month) Elective arthroplasty Hip, pelvis, or leg fracture Acute spinal cord injury (< 1 month) Prophylaxis Regimen: Total Risk Factor Score Risk Level Prophylaxis Regimen 0-1 Low Early ambulation 2 Moderate Order ONE of the following: *Sequential Compression Device (SCD) *Heparin 5000 units SQ BID 3-4 Higher Order ONE of the following medications: *Heparin 5000 units SQ TID *Enoxaparin/Lovenox 40 mg SQ daily (WT < 150 kg, CrCl > 30 mL/min) *Enoxaparin/Lovenox 30 mg SQ daily (WT < 150 kg, CrCl > 10-29 mL/min) *Enoxaparin/Lovenox 30 mg SQ BID (WT < 150 kg, CrCl > 30 mL/min) AND/OR *Sequential Compression Device (SCD) 5 or more Highest Order ONE of the following medications: *Heparin 5000 units SQ TID (Preferred with Epidurals) *Enoxaparin/Lovenox 40 mg SQ daily (WT < 150 kg, CrCl > 30 mL/min) *Enoxaparin/Lovenox 30 mg SQ daily (WT < 150 kg, CrCl > 10-29 mL/min) *Enoxaparin/Lovenox 30 mg SQ BID (WT < 150 kg, CrCl > 30 mL/min) AND *Sequential Compression Device (SCD) Assessment and Plan (1) Acute metabolic encephalopathy: Code(s): G93.41 - Metabolic encephalopathy Status: Acute (2) Anemia of renal disease: Code(s): D63.1 - Anemia in chronic kidney disease Status: Chronic (3) End stage renal disease: Code(s): N18.6 - End stage renal disease Status: Chronic (4) Hyperkalemia: Code(s): E87.5 - Hyperkalemia Status: Acute Plan 83-year-old male with end-stage renal disease with a history of noncompliance with recent hospitalization for pneumonia and pulmonary nodule we presented with altered mental status with refusal of going to outpatient dialysis. Metabolic encephalopathy due to uremia and missed dialysis.-CT of the brain shows no acute changes. Continue neurological checks, nephrology consultation for hemodialysis. End-stage renal disease with a previous history of noncompliance with outpatient hemodialysis -nephrology consultation for hemodialysis. Due to history of recurrent frequent admissions for missed dialysis, will have palliative care consult to discuss with family short-term and long-term goals. History of COPDnot in acute exacerbation, continue with DuoNeb treatments. Oxygen support as needed. Left upper lobe pulmonary nodule history suspicious for malignancypatient and family declined biopsy, pulmonary recommended repeat CT chest in 2 months. Chronic anemia due to end-stage renal disease-Epogen with dialysis. Hyperkalemia due to missed dialysismonitor on telemetry for any arrhythmias, nephrology consultation for hemodialysis. Hold losartan DVT prophylaxisheparin
[2018-11-15] MEDS ORDERED: Albumin Human 25% Inj 100 ML IV.SIG PRN (17:15)
[2018-11-15] MEDS ORDERED: Heparin 10,000 UNITS/10 ML Vial (for IV use) OTHER PRN ×2 (17:15)
[2018-11-15] MEDS ORDERED: Gelatin 12 MM/7 MM Topical Foam TOPICAL PRN (17:15)
[2018-11-15] MEDS ORDERED: Sod Chloride 0.9% Inj 1,000 ML OTHER PRN ×2 (17:15)
[2018-11-15] MEDS ORDERED: Sod Chloride 0.9% Inj 1,000 ML IV.CONT PRN (17:15)
--- NOTE | 2018-11-15 19:29 | MB ---
cc: Bam Davis MD DATE: 11/15/2018 REASON FOR CONSULTATION: End-stage renal disease management. HISTORY OF PRESENT ILLNESS: This is an 83-year-old male who has a history of ESRD. He is on hemodialysis, Tuesdays, , and Saturdays and follows up as an outpatient with Dr. Green. The patient has a right IJ tunneled catheter for dialysis access. Apparently, the patient has been worked up for a lung nodule in the past; however, the family had declined a biopsy for further evaluation. The patient lives at [facility] and apparently he had refused dialysis for at least several days this week. He presented here with presentation of altered mental status. Here, a CT scan was done with no acute findings. He was found to be uremic with a BUN of 116 and a creatinine of 14.4. His potassium level was also elevated at a level of 5.9. Nephrology was consulted for further evaluation for end-stage renal disease management. At this point, the patient is seen on dialysis. He is tolerating dialysis well via the right IJ tunneled catheter. He remains somewhat confused and is unable to give a clear medical history. I am uncertain if this is near his baseline status of possible dementia or if this is an acute component secondary to uremic issues. At this point, he is tolerating dialysis well and nephrology was consulted for further evaluation. REVIEW OF SYSTEMS: Unobtainable. The patient is unable to give a clear medical history. He denies any acute chest pains or shortness of breath otherwise. PAST MEDICAL HISTORY: Includes BPH, COPD, hypertension, anemia, degenerative disk disease, ESRD, on hemodialysis, Tuesdays, , and Saturdays. Follows up with Dr. Green as an outpatient, also history of GERD, alcohol dependence and squamous cell carcinoma, also history of lung mass. PAST SURGICAL HISTORY: Includes hernia repair. FAMILY HISTORY: Family history of cancer. SOCIAL HISTORY: Previous alcohol use. Previous cigarette use. The patient lives in [facility]. ALLERGIES: NO KNOWN DRUG ALLERGIES. MEDICATIONS AT HOME: Included: 1. Brimonidine. 2. 3. Xalatan. 4. Losartan. 5. Lyrica. 6. Tamsulosin. 7. Doxepin. 8. Acetaminophen. 9. Advair. 10. Guaifenesin. 11. Milk of magnesia. 12. Zofran. 13. Vitamin B. PHYSICAL EXAMINATION: At time of evaluation: VITAL SIGNS: Temperature 99.9, pulse 93, respiratory rate 22, blood pressure 141/79, pulse oximetry 95%. GENERAL: The patient is awake, confused, lethargic. SKIN: Intact. NECK: Soft, supple. CARDIAC: Regular rate and rhythm. PULMONARY: Decreased breath sounds at bases, clear to auscultation otherwise. ABDOMEN: Soft, nontender, nondistended. EXTREMITIES: No edema. The patient with right IJ tunneled catheter. LABORATORY DATA: White count 9.4, hemoglobin 10.0, hematocrit 31.6, platelet count of 266. Sodium 140, potassium 5.9, chloride 105, bicarbonate 22, BUN 116, creatinine 14, glucose of 95. ASSESSMENT AND PLAN: 1. End-stage renal disease. The patient is on hemodialysis on Tuesdays, , and Saturdays. He has apparently been noncompliant with his last several dialysis sessions. At this point, dialysis was reinitiated here. We will do ultrafiltration as tolerated. We will do dialysis again on Saturday, then continue with Saturday, , Saturday schedule. Volume status is otherwise stable at this point. 2. Hyperkalemia. The patient with a potassium level of 5.9. We will do a 1K potassium bath with dialysis today. Continue to follow electrolytes. Plan for further dialysis on Saturday and Saturday. Continue with renal diet. 3. Chronic obstructive pulmonary disease. The patient's respiratory status is stable. Continue with DuoNeb treatments and oxygen as needed. 4. Altered mental status, unclear if this is a uremic component versus underlying dementia. Continue to follow up mental status post dialysis. 5. Hypertension. Blood pressure is at 141/79. Continue with medications. 6. Pulmonary nodule. The patient refused apparent biopsy in the past with the family. Continue to monitor. 7. Anemia, hemoglobin level of 10. Continue to monitor. We will give Epogen as needed with dialysis. MD DONNA MartinezP/ct/rr , 06:21 PM , 06:30 PM ANTHONY
[2018-11-15] MEDS ORDERED: Vancomycin Inj 1,000 MG in Sodium Chlor 0.9% Inj 250 ML IV.SIG ONE (21:00)
[2018-11-15] MEDS: Pregabalin 25 MG Capsule PO SCH (21:15)
[2018-11-15] MEDS: SALMETEROL 50 MCG INH SCH (21:16)
[2018-11-15] MEDS: Brimonidine 0.15% Opth Drops 5 ML Bottle EACH EYE SCH (21:16)
[2018-11-15] MEDS: Latanoprost 0.005% Opth Drops 2.5 ML Bottle EACH EYE SCH (21:16)
[2018-11-15] MEDS: FLUTICASONE PROPIONATE INH SCH (21:16)
[2018-11-15] MEDS: Senna/Docusate Sodium 8.6/50 MG Tablet PO SCH (21:17)
[2018-11-15] MEDS: Heparin - SQ 10,000 UNITS/ML Vial SQ SCH (21:18)
[2018-11-16] MEDS ORDERED: Metoprolol Tartrate 25 MG Tablet PO ONE (01:17)
[2018-11-16] MEDS: Heparin - SQ 10,000 UNITS/ML Vial SQ SCH ×2 (04:03→18:14)
[2018-11-16 07:48] LABS: Baso % (Auto) 0.6 % (0.0-2.0); Eos # (Auto) 0.2 th/mm3 (0.0-0.4); Eos % (Auto) 2.9 % (0.0-4.0); Hematocrit 31.5 % (39.0-51.0); Hemoglobin 10.1 gm/dL (13.0-17.0); Lymph # (Auto) 0.8 th/mm3 (1.0-4.8); Lymph % (Auto) 10.1 % (9.0-44.0); Mean Corpuscular HGB Conc 32.1 % (32.0-36.0); Mean Corpuscular Hemoglobin 28.7 pg (27.0-34.0); Mean Corpuscular Volume 89.2 fL (80.0-100.0); Mean Platelet Volume 7.7 fL (7.0-11.0); Mono # (Auto) 1.1 th/mm3 (0.0-0.9); Mono % (Auto) 14.3 % (0.0-8.0); Neut # (Auto) 5.4 th/mm3 (1.8-7.7); Neut % (Auto) 72.1 % (16.0-70.0); Platelet Count 240 th/mm3 (150-450); Red Blood Count 3.54 mil/mm3 (4.50-5.90); Red Cell Distribution Width 20.7 % (11.6-17.2); White Blood Count 7.5 th/mm3 (4.0-11.0)
[2018-11-16 08:22] LABS: Alanine Aminotransferase 14 U/L (12-78); Albumin 2.3 g/dL (3.4-5.0); Alkaline Phosphatase 59 U/L (45-117); Anion Gap 12 meq/L (5-15); Aspartate Aminotransferase 22 U/L (15-37); Blood Urea Nitrogen 54 mg/dL (7-18); Calcium 8.6 mg/dL (8.5-10.1); Carbon Dioxide 24.6 meq/L (21.0-32.0); Chloride 103 meq/L (98-107); Glomerular Filtration Rate 8 mL/min (>89); Glucose,Random 81 mg/dL (74-106); Magnesium 2.3 mg/dL (1.5-2.5); Phosphorus 7.2 mg/dL (2.5-4.9); Potassium 4.4 meq/L (3.5-5.1); Sodium 140 meq/L (136-145); Total Protein 7.2 g/dL (6.4-8.2)
[2018-11-16] MEDS: SALMETEROL 50 MCG INH SCH ×2 (09:36→21:55)
[2018-11-16] MEDS: Brimonidine 0.15% Opth Drops 5 ML Bottle EACH EYE SCH ×2 (09:36→21:51)
[2018-11-16] MEDS: FLUTICASONE PROPIONATE INH SCH ×2 (09:36→21:55)
[2018-11-16] MEDS: Pregabalin 25 MG Capsule PO SCH ×3 (09:36→18:14)
[2018-11-16] MEDS: predniSONE 10 MG Tablet PO SCH (09:36)
[2018-11-16] MEDS: Senna/Docusate Sodium 8.6/50 MG Tablet PO SCH ×2 (09:37→21:21)
--- NOTE | 2018-11-16 15:01 | ECG ---
Date Performed: 11/15/2018 Time Performed: 13:42:03 PTAGE: 83 years EKG: Sinus rhythm WITHIN NORMAL LIMITS BORDERLINE ECG Since PREVIOUS TRACING , no significant change noted PREVIOUS TRACIN10/08/2018 20.33 DOCTOR: Carlos Barrientos Interpretating Date/Time 11/16/2018 14:58:24
--- NOTE | 2018-11-16 16:24 | P.PNNP ---
Subjective Interval history: More alert today, tolerated HD yesterday Physical Exam Vital signs: Vital Signs 11/15/18 20:00 11/15/18 22:32 11/16/18 00:00 Temperature 99.0 F 99.0 F Pulse Rate 100 H 120 H Respiratory Rate 20 21 Blood Pressure 160/73 H 106/73 Pulse Oximetry 99 95 97 11/16/18 01:20 11/16/18 02:20 11/16/18 04:38 Temperature Pulse Rate 138 H 115 H 112 H Respiratory Rate Blood Pressure Pulse Oximetry 11/16/18 05:45 11/16/18 08:29 11/16/18 08:45 Temperature 98.4 F 98.0 F Pulse Rate 120 H 106 H 90 Respiratory Rate 18 16 18 Blood Pressure 104/57 L 93/55 L Pulse Oximetry 95 85 L 96 11/16/18 11:54 Temperature Pulse Rate 90 Respiratory Rate 18 Blood Pressure Pulse Oximetry Intake & Output 11/15/18 11/16/18 11/16/18 18:59 06:59 18:59 Intake Total 750 / 750 310 / 310 Output Total 700 / 700 Balance 750 / 750 -390 / -390 Weight 63.503 kg 57.3 kg Intake: IV 750 / 750 250 / 250 Azithromycin Inj 500 MG In NS 250 / 250 Inj 250 ML @ 250 mls/hr IV.SIG ONCE ONE Rx#:[id number] NS Inj 500 ML @ Wide Open IV. 500 / 500 SIG BOLUS ONE Rx#:[id number] Vancomycin Inj 1,000 MG In NS 250 / 250 Inj 250 ML @ 250 mls/hr IV.SIG ONCE ONE Rx#:[id number] Oral 60 / 60 Output: Hemodialysis Amount 700 / 700 Other: # Voids 1 Date of Last Bowel Movement 11/15/18 # Incontinent Bowel Movements 1 Weight On Admission 57.3 kg - Constitutional no acute distress - Routine HEENT Exam Head: Present: normocephalic Eye: Present: EOMI ENT: Present: mucous membranes moist - Routine Neck Exam Present: supple - Routine Respiratory Exam Present: decreased breath sounds - Routine Cardiovascular Exam Present: RRR - Routine Abdominal Exam Present: soft - Routine Extremities Exam Present: vascular access - Routine Skin Exam Present: intact - Routine Neurological Exam Present: alert - Detailed Neurological Exam: Coma Scale Eye Opening: Spontaneous - Routine Psychiatric Exam Present: normal affect Assessment and Plan - Assessment (1) End-stage renal disease on hemodialysis Code(s): N18.6 - End stage renal disease; Z99.2 - Dependence on renal dialysis Status: Chronic Plan: Patient lives in [facility], with recent noncompliance with dialysis due to weakness Apparently missed 2 or 3 dialysis sessions. Tolerated HD well last night here. 700cc UF with HD last night Electrolytes, potassium improved. Patient with significant confusion overnight with possible uremic component, improved today - may be near baseline mental status. Patient voices understanding of needing to continue dialysis. Otherwise stable from renal standpoint. Will plan for next dialysis on Saturday May potentially benefit from some physical therapy, which patient reports he was receiving at shelter. (2) Hyperkalemia Code(s): E87.5 - Hyperkalemia Status: Acute Plan: Improved post dialysis, continue to monitor (3) Acute metabolic encephalopathy Code(s): G93.41 - Metabolic encephalopathy Status: Acute Plan: less confused after dialysis last night, possible uremic component (4) Weakness Code(s): R53.1 - Weakness Status: Acute (5) COPD (chronic obstructive pulmonary disease) Code(s): J44.9 - Chronic obstructive pulmonary disease, unspecified Status: Chronic Plan: continue to monitor History of lung nodule with no further plan for biopsy per family
[2018-11-16] MEDS: Latanoprost 0.005% Opth Drops 2.5 ML Bottle EACH EYE SCH (18:15)
--- NOTE | 2018-11-16 19:31 | P.PNIM ---
Subjective Interval history: 83 yo m w esrd [facility] admitted with altered mental status, and patient refusing to go to dialysis for 3 days. Initial workup revealed BUN 116, creatinine 14, chronic changes on head CT, normal chest x-ray, he was seen by nephrology and underwent dialysis. Patient has a history of pulmonary nodule that family has declined further workup for. Patient is seen and examined, very pleasant, awake, pleasantly forgetful but no distress, no specific complaints of shortness of breath or cough Physical Exam Vital signs: Last Vital Signs Temp 98.0 F 11/16/18 08:29 Pulse 99 H 11/16/18 18:15 Resp 18 11/16/18 17:07 BP 109/58 L 11/16/18 18:15 Pulse Ox 96 11/16/18 08:45 Intake & Output 11/14/18 11/15/18 11/16/18 11/17/18 06:59 06:59 06:59 06:59 Intake Total 1060 / 1060 1000 / 1000 Output Total 700 / 700 Balance 360 / 360 1000 / 1000 Weight 57.3 kg Thin well-developed well-nourished 83-year-old -Macedonian gentleman Awake alert responsive, forgetful, no distress, Heart S1-S2 regular Lungs diminished breath sounds at the bases no wheeze no rhonchi respirations normal Abdomen soft nondistended Extremities no clubbing cyanosis no significant edema Results Labs CBC & Chem 7: 11/16/18 06:39 11/16/18 06:39 Labs: Microbiology 11/15/18 13:10 Blood - Line Aerobic Blood Culture - Preliminary gram positive cocci 11/15/18 13:10 Blood - Line Anaerobic Blood Culture - Preliminary No growth in 1 day 11/15/18 13:18 Blood - Line Aerobic Blood Culture - Preliminary No growth in 1 day 11/15/18 13:18 Blood - Line Anaerobic Blood Culture - Preliminary No growth in 1 day Assessment and Plan (1) End-stage renal disease on hemodialysis: Code(s): N18.6 - End stage renal disease; Z99.2 - Dependence on renal dialysis Status: Chronic (2) Hyperkalemia: Code(s): E87.5 - Hyperkalemia Status: Acute (3) Acute metabolic encephalopathy: Code(s): G93.41 - Metabolic encephalopathy Status: Acute (4) Weakness: Code(s): R53.1 - Weakness Status: Acute (5) COPD (chronic obstructive pulmonary disease): Code(s): J44.9 - Chronic obstructive pulmonary disease, unspecified Status: Chronic Plan ACUTE METABOLIC ENCEPHALOPATHY due to UREMIA slow improvment MEDICAL NONCOMPLIANCE - counseled END STAGE RENAL DISEASE on DIALYSIS - cont as per nephrology, k better, dc when ok w nephrology COPD not in exacerbation PULMONARY NODULE - family decline further recommended work up, outpt fu, may need to discuss hospice referral as outpt w family at some point. CHRONIC ANEMIA - stable no need for transfusion HYPERKALEMIA - p hd HYPERTENSION - cont home meds GERD - cont ppi dvt prophylaxis - heparin sq dispo - return to [facility] when ok w nephrology Progress Note: Quality VTE Deep Vein Thrombosis/Pulmonary Embolism Present on Admission: No _ (1) COPD (chronic obstructive pulmonary disease) Qualifiers: COPD type: Chronic bronchitis type: Emphysema type:
[2018-11-17] MEDS: Heparin - SQ 10,000 UNITS/ML Vial SQ SCH (05:11)
[2018-11-17 07:27] LABS: Hemoglobin 9.4 gm/dL (13.0-17.0); Mean Corpuscular HGB Conc 31.5 % (32.0-36.0); Mean Corpuscular Hemoglobin 28.5 pg (27.0-34.0); Mean Corpuscular Volume 90.3 fL (80.0-100.0); Mean Platelet Volume 7.5 fL (7.0-11.0); Platelet Count 215 th/mm3 (150-450); Red Blood Count 3.32 mil/mm3 (4.50-5.90); Red Cell Distribution Width 20.4 % (11.6-17.2); White Blood Count 5.9 th/mm3 (4.0-11.0)
[2018-11-17 07:58] LABS: Alanine Aminotransferase 17 U/L (12-78); Albumin 2.1 g/dL (3.4-5.0); Alkaline Phosphatase 58 U/L (45-117); Anion Gap 10 meq/L (5-15); Aspartate Aminotransferase 25 U/L (15-37); Blood Urea Nitrogen 70 mg/dL (7-18); Calcium 8.5 mg/dL (8.5-10.1); Chloride 105 meq/L (98-107); Glomerular Filtration Rate 6 mL/min (>89); Glucose,Random 111 mg/dL (74-106); Magnesium 2.7 mg/dL (1.5-2.5); Potassium 4.6 meq/L (3.5-5.1); Sodium 142 meq/L (136-145); Total Protein 6.9 g/dL (6.4-8.2)
[2018-11-17 08:04] LABS: Phosphorus 8.3 mg/dL (2.5-4.9)
[2018-11-17] MEDS ORDERED: Budesonide-Formoterol 160/4.5 MCG 6 GM Inhaler INH SCH (09:00)
--- NOTE | 2018-11-17 09:40 | P.PNSTU ---
Subjective - Remarks Pt is an 83 y/o male from [facility] w/ h/o ESRD on dialyisis, BPH, COPD, Anemia, DDD, GERD on HOD2 who was admitted for altered mental status 2/2 acute metabolic encephalopathy after denying dialysis x3. He was found at his SY to be confused and minimally responsive, at which time he was brought to the ED. Upon admission he was found to be hyperkalemic of 5.9 and uremic with BUN 115, with CT head showing no acute process. He was dialyzed yesterday successfully per nephrology. Today he has no complaints. He denies any nausea, vomiting, fevers, chills, abdominal pain, or problems with bowels or bladder. He denies any pain. Objective Vital Signs: Vital Signs 11/16/18 11:54 11/16/18 17:07 11/16/18 18:15 Temperature Pulse Rate 90 90 99 H Respiratory Rate 18 18 Blood Pressure 109/58 L Pulse Oximetry 11/16/18 20:00 11/16/18 20:13 11/17/18 00:00 Temperature 97.5 F L 97.5 F L Pulse Rate 95 H 95 H 72 Respiratory Rate 20 20 18 Blood Pressure 94/52 L 92/51 L Pulse Oximetry 96 96 98 11/17/18 04:00 11/17/18 07:51 11/17/18 08:20 Temperature 98.1 F 98.2 F Pulse Rate 71 67 70 Respiratory Rate 18 16 20 Blood Pressure 105/55 L 94/50 L Pulse Oximetry 97 94 L 94 L Intake & Output 11/16/18 11/17/18 11/17/18 18:59 06:59 18:59 Intake Total 1000 / 1000 221 / 221 Balance 1000 / 1000 221 / 221 Weight 56.7 kg Intake: Oral 1000 / 1000 221 / 221 Other: # Voids 2 # Incontinent Voids 2 Date of Last Bowel Movement 11/15/18 # Bowel Movements 1 1 # Incontinent Bowel Movements 1 Result Diagrams: 11/17/18 07:15 11/17/18 07:15 Medications and IVs: Active Medications Acetaminophen (Tylenol) 650 mg PO Q4H PRN PRN Reason: Temp > 100.4 Acetaminophen (Tylenol) 650 mg PO UNSCH PRN PRN Reason: SEE LABEL COMMENTS Al Hydroxide/Mg Hydroxide (Milk Of Luke Liq) 30 ml PO Q12H PRN PRN Reason: Mild Constipation Albuterol (Duoneb Neb (Lashae)) 1 ampul NEB Q4HR NEB [facility] Last Admin: 11/17/18 07:51 Dose: 1 ampul Bisacodyl (Dulcolax Supp) 10 mg RECTAL DAILY PRN PRN Reason: SEVERE CONSITIPATION Brimonidine Tartrate (Alphagan P 0.15% Opth Drops) 1 drops EACH EYE BID [facility] Last Admin: 11/16/18 21:51 Dose: 1 drops Budesonide/Formoterol Fumarate (Symbicort 160/4.5 Mcg Inh) 2 puff INH BID [facility] Clonidine HCl (Catapres) 0.1 mg PO UNSCH PRN PRN Reason: SEE LABEL COMMENTS Diphenhydramine HCl (Benadryl) 25 mg PO UNSCH PRN PRN Reason: SEE LABEL COMMENTS Gelatin (Gelfoam 12 Mm/7 Mm Topical) 1 foam TOPICAL PRN PRN PRN Reason: help stop bleeding from site Gentamicin Sulfate (Gentamicin Inj) 20 mg OTHER WITH DIALYSIS PRN PRN Reason: Dwell Gentamycin Lock Heparin Sodium (Porcine) (Heparin Inj) 5,000 units SQ Q12H [facility] Last Admin: 11/17/18 05:11 Dose: 5,000 units Heparin Sodium (Porcine) (Heparin Inj) 8,000 units OTHER WITH DIALYSIS PRN PRN Reason: for machine prime Heparin Sodium (Porcine) (Heparin Inj) 1,000 units OTHER WITH DIALYSIS PRN PRN Reason: Dwell Heparin to Fill Catheter Albumin Human (Flexbumin 25% Inj) 100 mls @ 60 mls/hr IV.SIG WITH DIALYSIS PRN PRN Reason: hypotension / volume replace Sodium Chloride (Ns Inj) 1,000 mls @ 0 mls/hr OTHER .Q0M PRN PRN Reason: for prime and rinse back Sodium Chloride (Ns Inj) 1,000 mls @ 200 mls/hr OTHER .Q5H PRN PRN Reason: for dialyzer flush PRN Sodium Chloride (Ns Inj) 1,000 mls @ 0 mls/hr IV.CONT .Q0M PRN PRN Reason: hypotension / volume replace Lactulose (Lactulose Liq) 30 ml PO DAILY PRN PRN Reason: SEVERE CONSITIPATION Latanoprost (Xalatan 0.005% Opth Drops) 1 drop EACH EYE QPM [facility] Last Admin: 11/16/18 18:15 Dose: Not Given Mannitol (Mannitol Inj) 12.5 gm IV.PUSH UNSCH PRN PRN Reason: hypotension / volume replace Nitroglycerin (Nitrostat Sl) 0.4 mg SL Q5M PRN PRN Reason: CHEST PAIN Ondansetron HCl (Zofran Inj) 4 mg IV.PUSH Q6H PRN PRN Reason: NAUSEA OR VOMITING Ondansetron HCl (Zofran Inj) 4 mg IV.PUSH UNSCH PRN PRN Reason: NAUSEA OR VOMITING Pharmacy Profile Note (Vancomycin Consult Pharmacy) 1 each OTHER UNSCH PRN PRN Reason: Pharmacy to dose Prednisone (Deltasone) 5 mg PO DAILY [facility] Last Admin: 11/16/18 09:36 Dose: 5 mg Pregabalin (Lyrica) 25 mg PO TID [facility] Last Admin: 11/16/18 18:14 Dose: 25 mg Senna/Docusate Sodium (Denise-Colace) 1 tab PO BID [facility] Last Admin: 11/16/18 21:21 Dose: 1 tab Sennosides (Senokot) 17.2 mg PO Q12H PRN PRN Reason: Moderate Constipation Sodium Chloride (Ns Flush) 2 ml IV.FLUSH BID [facility] Last Admin: 11/16/18 21:22 Dose: 2 ml Sodium Chloride (Ns Flush) 2 ml IV.FLUSH PRN PRN PRN Reason: FLUSH AFTER USING IV ACCESS Sodium Chloride (Ns Flush) 5 ml IV.FLUSH PRN PRN PRN Reason: flush each lumen during HD Objective Remarks: GENERAL: Well-appearing, thin male in no acute distress. Interviewed while happily eating breakfast. SKIN: Warm and dry. HEAD: Atraumatic. Normocephalic. EYES: Pupils equal and round. No scleral icterus. No injection or drainage. ENT: No nasal bleeding or discharge. Mucous membranes pink and moist. NECK: Trachea midline. No JVD. CARDIOVASCULAR: Regular rate and rhythm. RESPIRATORY: No accessory muscle use on 2L nasal canula. Clear to auscultation. Breath sounds equal bilaterally. GASTROINTESTINAL: Abdomen soft, non-tender, nondistended. Hepatic and splenic margins not palpable. MUSCULOSKELETAL: Extremities without clubbing, cyanosis, or edema. No obvious deformities. NEUROLOGICAL: Awake, alert, and orientated x3. No obvious cranial nerve deficits. Motor grossly within normal limits. Five out of 5 muscle strength in the arms and legs. Normal speech. PSYCHIATRIC: Appropriate mood and affect; insight and judgment normal. Assessment and Plan Assessment and Plan: 1. Acute Metabolic Encelopathy - BUN 115 and K 5.6 upon admission - After dialysis yesterday, today K 4.6, BUN 70m phosphorous 8.3 - Mental status appears to be improved and patient is AAOx3 - Will continue to monitor mental status 2. ESRD on Dialysis - BUN up 70 from 54 , GFR down 6 from 8, Cr up 9.54 from 7.66 - Dialyzed yesterday (11/16) - Followed by nephrology - Will d/c once nephrology feels it is appropriate - Due to h/o noncompliance with dialysis, suggest palliative care consult to evaluate patient's and family's goals of treatment 3. COPD - Currently on 2L O2 nasal canula - No signs of respiratory distress, is comfortable - Will continue Duoneb q4hr and monitor respiratory status 4. Pulmonary nodule - Found on previous scan, findings suggest possible malignancy - Patient and family do not wish for biopsy - Suggest follow-up outpatient with repeat CT scan 5. Chronic Anemia -Likely due to ESRD -Hgb 9.4, down from 10.1 yesterday -Will continue to monitor -If Hgb continues to decrease, will consider EPO treatment 6. HyperKalemia - K on admission 5.6, currently 4.6 - Will continue to monitor 7. Hypertension - Blood pressure stable without home medication of losartan at this time - Will continue to monitor
[2018-11-17] MEDS: Pregabalin 25 MG Capsule PO SCH ×2 (10:20→13:41)
[2018-11-17] MEDS: Senna/Docusate Sodium 8.6/50 MG Tablet PO SCH (10:20)
[2018-11-17] MEDS: predniSONE 10 MG Tablet PO SCH (10:23)
[2018-11-17] MEDS: Brimonidine 0.15% Opth Drops 5 ML Bottle EACH EYE SCH (10:25)
--- NOTE | 2018-11-17 11:00 | P.CONPAL ---
Consult Service: Palliative Care Requesting Physician: Maryann Gao Reason for Consult: a. To assist with evaluation and management of symptoms including: pain, debility b. To assist medical decision maker(s) with: better understanding of current medical conditions; weighing benefits/burdens of medical treatment options; making medical treatment decisions. Primary Care Provider: Nishant Johnson DO History of Present Illness History of Present Illness: Mr. Hancock is an 83-year-old male with ESRD (on dialysis), COPD, anemia 2/2 renal disease and hypertension who presented to [place] ED via EMS on 11/15/2018 for evaluation of altered mental status and lethargy. Facility nursing staff stated the patient had been refusing to go to outpatient dialysis. Patient was recently hospitalized with pneumonia in October,. During that hospitalization, the patient was found to have a left upper lobe lung nodule is for malignancy, however patient/family refused a biopsy for further evaluation. Pulmonology recommended a repeat CT chest in 2 months. Upon arrival to the ED the patient was lethargic and confused but aroused to verbal stimuli. Diagnostic data: * Vital signs: Pulse 97, respirations 18, BP 121/79, oxygen saturation 90% on 2 L via nasal cannula, oral temperature 99.1 * WBC: 9.4, hemoglobin 10.0, hematocrit 31.6, platelets 266, neutrophils 69.3% * PT: 11.0, INR 1.1 * Sodium: 140, potassium 5.9, chloride 105, carbon dioxide 22.0, random glucose 95, calcium 8.8, magnesium 2.8 * BUN: 116, creatinine 14.06, GFR 4 * Lactic acid 0.7 * Total bilirubin: 0.8, AST 16, ALT 18, alkaline phosphatase 65 * Ammonia <10 * Troponin <0.02 * Total protein: 7.7, albumin 2.4 * Urinalysis WNL * CT head showed chronic small vessel ischemic and atrophic changes * Chest x-ray showed no acute cardiopulmonary disease Patient was admitted with acute kidney insufficiency and metabolic encephalopathy due to uremia and noncompliance with his last several dialysis sessions. The patient was seen by nephrology and dialysis was reinitiated. Palliative Care was consulted to assist with symptom management and to discuss with the family the benefits and burdens of her current illnesses and the options regarding future care. Patient seen in room 1512; no family or friends at bedside. Patient is alert, pleasantly engages. He is answering questions but is somewhat difficult to understand. He had no complaints. Discussed the importance of compliance with dialysis sessions. Patient states he was not able to go to his hemodialysis sessions because of extreme fatigue. We reviewed the symptoms he might experience when he misses dialysis including fatigue, malaise, headache, loss of appetite. Patient states, "I'm gonna without it." He tells me he wants to return to [facility], and he will go to HD as recommended moving forward. Medical History: BPH COPD Hypertension Degenerative disc disease ESRD on dialysis GERD History of alcohol dependence History of squamous cell carcinoma Anemia Surgical History: H/O hernia repair Family History: Familial history of cancer Psychosocial: Patient was born and raised in [place]. He is not . He states he has 7 adult children. 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 Spiritual: [employer] best. Legal: Niece (Gabriela Rogers) was designated as the healthcare surrogate decision-maker on 07/25/2018. Function/Cognitive Trajectory: Patient was living at home alone until about May,. He has been in and out of the hospital multiple times since then. This is the patient's sixth known hospitalization in the past 6 months. Most recently he was at [facility] receiving rehab. He states he was walking with a rolling walker, receiving hemodialysis on Review of Systems Constitutional: Reports body ache(s), Reports fatigue, Reports lack of energy, Reports weakness PMFSH - History History Provided By: Medical Record, Phlebotomist Lab Assistant / EMT - Medical History Medical History: Medical History (Last Updated 11/15/18 @ 16:17 by Maryann Gao MD) BPH loc w urin obs/LUTS (Chronic) COPD (chronic obstructive pulmonary disease) (Chronic) Hypertension (Chronic) Anemia Degenerative disc disease ESRD (end stage renal disease) on dialysis GERD (gastroesophageal reflux disease) History of alcohol dependence History of squamous cell carcinoma - Surgical History Surgical History: Surgical History (Last Reviewed 11/15/18 @ 16:18 by Maryann Gao MD) H/O hernia repair - Family History Family History: Family History (Last Reviewed 11/15/18 @ 16:17 by Maryann Gao MD) Other Family history of cancer - Tobacco History Second Hand Smoke Exposure: No Smoking Status: Former smoker Tobacco Type: Cigarettes Packs Per Day: 2 Cigarettes Per Day: 40 Years Smoked: 40 years: 80 - Alcohol History How Often Do You Have a Drink Containing Alcohol: Unable to Obtain - Substance Use History Substance History: Unable to Obtain - Travel History Recent Travel in the [place] Within the Last 8 Weeks: No Recent Travel Out of the Country Within the Last 8 Weeks: No - Immunization History Tetanus Immunization: Unable to Assess Medications and Allergies Active Medications: Active Medications Acetaminophen (Tylenol) 650 mg PO Q4H PRN PRN Reason: Temp > 100.4 Acetaminophen (Tylenol) 650 mg PO UNSCH PRN PRN Reason: SEE LABEL COMMENTS Al Hydroxide/Mg Hydroxide (Milk Of Luke Garcia) 30 ml PO Q12H PRN PRN Reason: Mild Constipation Albuterol (Duoneb Neb ([facility])) 1 ampul NEB Q4HR NEB [facility] Last Admin: 11/17/18 07:51 Dose: 1 ampul Bisacodyl (Dulcolax Supp) 10 mg RECTAL DAILY PRN PRN Reason: SEVERE CONSITIPATION Brimonidine Tartrate (Alphagan P 0.15% Opth Drops) 1 drops EACH EYE BID [facility] Last Admin: 11/16/18 21:51 Dose: 1 drops Budesonide/Formoterol Fumarate (Symbicort 160/4.5 Mcg Inh) 2 puff INH BID [facility] Clonidine HCl (Catapres) 0.1 mg PO UNSCH PRN PRN Reason: SEE LABEL COMMENTS Diphenhydramine HCl (Benadryl) 25 mg PO UNSCH PRN PRN Reason: SEE LABEL COMMENTS Gelatin (Gelfoam 12 Mm/7 Mm Topical) 1 foam TOPICAL PRN PRN PRN Reason: help stop bleeding from site Gentamicin Sulfate (Gentamicin Inj) 20 mg OTHER WITH DIALYSIS PRN PRN Reason: Dwell Gentamycin Lock Heparin Sodium (Porcine) (Heparin Inj) 5,000 units SQ Q12H [facility] Last Admin: 11/17/18 05:11 Dose: 5,000 units Heparin Sodium (Porcine) (Heparin Inj) 8,000 units OTHER WITH DIALYSIS PRN PRN Reason: for machine prime Heparin Sodium (Porcine) (Heparin Inj) 1,000 units OTHER WITH DIALYSIS PRN PRN Reason: Dwell Heparin to Fill Catheter Albumin Human (Flexbumin 25% Inj) 100 mls @ 60 mls/hr IV.SIG WITH DIALYSIS PRN PRN Reason: hypotension / volume replace Sodium Chloride (Ns Inj) 1,000 mls @ 0 mls/hr OTHER .Q0M PRN PRN Reason: for prime and rinse back Sodium Chloride (Ns Inj) 1,000 mls @ 200 mls/hr OTHER .Q5H PRN PRN Reason: for dialyzer flush PRN Sodium Chloride (Ns Inj) 1,000 mls @ 0 mls/hr IV.CONT .Q0M PRN PRN Reason: hypotension / volume replace Lactulose (Lactulose Liq) 30 ml PO DAILY PRN PRN Reason: SEVERE CONSITIPATION Latanoprost (Xalatan 0.005% Opth Drops) 1 drop EACH EYE QPM [facility] Last Admin: 11/16/18 18:15 Dose: Not Given Mannitol (Mannitol Inj) 12.5 gm IV.PUSH UNSCH PRN PRN Reason: hypotension / volume replace Nitroglycerin (Nitrostat Sl) 0.4 mg SL Q5M PRN PRN Reason: CHEST PAIN Ondansetron HCl (Zofran Inj) 4 mg IV.PUSH Q6H PRN PRN Reason: NAUSEA OR VOMITING Ondansetron HCl (Zofran Inj) 4 mg IV.PUSH UNSCH PRN PRN Reason: NAUSEA OR VOMITING Pharmacy Profile Note (Vancomycin Consult Pharmacy) 1 each OTHER UNSCH PRN PRN Reason: Pharmacy to dose Prednisone (Deltasone) 5 mg PO DAILY [facility] Last Admin: 11/17/18 10:23 Dose: 5 mg Pregabalin (Lyrica) 25 mg PO TID [facility] Last Admin: 11/17/18 10:20 Dose: 25 mg Senna/Docusate Sodium (Denise-Colace) 1 tab PO BID [facility] Last Admin: 11/17/18 10:20 Dose: 1 tab Sennosides (Senokot) 17.2 mg PO Q12H PRN PRN Reason: Moderate Constipation Sodium Chloride (Ns Flush) 2 ml IV.FLUSH BID [facility] Last Admin: 11/16/18 21:22 Dose: 2 ml Sodium Chloride (Ns Flush) 2 ml IV.FLUSH PRN PRN PRN Reason: FLUSH AFTER USING IV ACCESS Sodium Chloride (Ns Flush) 5 ml IV.FLUSH PRN PRN PRN Reason: flush each lumen during HD Allergies Allergy/AdvReac Type Severity Reaction Status Date / Time No Known Allergies Allergy Verified 11/15/18 12:57 Home Medications Medication Instructions Recorded Confirmed Type brimonidine [Alphagan P] 1 drp EACH EYE BID 09/16/18 11/15/18 History latanoprost [Xalatan] 1 drp EACH EYE QPM 09/16/18 11/15/18 History pregabalin [Lyrica] 25 mg PO TID 09/16/18 11/15/18 History tamsulosin 0.8 mg PO HS 09/16/18 11/15/18 History doxepin 25 mg PO DAILY 10/08/18 11/15/18 History acetaminophen 325 mg PO Q4H PRN 10/23/18 11/15/18 History fluticasone-salmeterol [Advair 1 inh INHALATION BID 10/23/18 11/15/18 History Diskus] guaifenesin 600 mg PO Q12H 10/23/18 11/15/18 History magnesium hydroxide [Milk of 30 ml PO DAILY PRN 10/23/18 11/15/18 History Magnesia] ondansetron HCl [Zofran] 4 mg PO TID PRN 10/23/18 11/15/18 History vitamin B complex 1 tab PO DAILY 10/23/18 11/15/18 History Advance Directives Advance Directives Date on File: 07/25/18 Living Will: No Healthcare Surrogate: Yes Health Care Surrogate Name and Number: Gabriela Rogers (niece) Power of Corporate Operations Compliance Manager: Unknown Power of Corporate Operations Compliance Manager Relationship to Patient: Family (Niece) Today's verbally stated goals: Patient verbalizing aggressive goals. He states he wants to return to [facility] and will follow recommendations for hemodialysis on . Patient states he wants to get home eventually stating that's where he belongs, unfortunately returning to his previous level of independence is unlikely. Ethical and Legal Issues: No known ethical issues impacting care at this time. Physical Exam Vital Signs: Vital Signs - 24 hr 11/16/18 11:54 11/16/18 17:07 11/16/18 18:15 Temperature Pulse Rate 90 90 99 H Respiratory Rate 18 18 Blood Pressure 109/58 L Pulse Oximetry 11/16/18 20:00 11/16/18 20:13 11/17/18 00:00 Temperature 97.5 F L 97.5 F L Pulse Rate 95 H 95 H 72 Respiratory Rate 20 20 18 Blood Pressure 94/52 L 92/51 L Pulse Oximetry 96 96 98 11/17/18 04:00 11/17/18 07:51 11/17/18 08:20 Temperature 98.1 F 98.2 F Pulse Rate 71 67 70 Respiratory Rate 18 16 20 Blood Pressure 105/55 L 94/50 L Pulse Oximetry 97 94 L 94 L I&O: Intake & Output 11/15/18 11/16/18 11/17/18 11/18/18 06:59 06:59 06:59 06:59 Intake Total 1060 / 1060 1221 / 1221 Output Total 700 / 700 Balance 360 / 360 1221 / 1221 Weight 57.3 kg 56.7 kg Physical Exam: CONSTITUTIONAL/GENERAL: This is an adequately nourished patient, in no apparent distress. TUBES/LINES/DRAINS: PIV SKIN: No jaundice, rashes, or lesions. Ecchymoses on upper extremities. No wounds seen anteriorly. Skin temperature appropriate. Not diaphoretic. HEAD: Atraumatic. Normocephalic. EYES: Pupils equal and round and reactive. Extraocular motions intact. No scleral icterus. No injection or drainage. Fundi not examined. ENT: Hearing grossly normal. Nose without bleeding or purulent drainage. Mucous membranes moist and pink NECK: Trachea midline. Supple, nontender. No palpable thyroid enlargement or nodularity. CARDIOVASCULAR: Regular rate and rhythm without murmurs, gallops, or rubs. No JVD. Peripheral pulses symmetric. RESPIRATORY/CHEST: Symmetric, unlabored respirations. Clear to auscultation. Breath sounds equal bilaterally. No wheezes, rales, or rhonchi. GASTROINTESTINAL: Abdomen soft, non-tender, nondistended. Bowel sounds present. GENITOURINARY: Without palpable bladder distension. MUSCULOSKELETAL: Extremities without clubbing, cyanosis, or edema. No mottling or clubbing. Patient's cage is visible; he has muscle wasting and all extremities as well as the temporal region. LYMPHATICS: No palpable cervical or supraclavicular adenopathy. NEUROLOGICAL: Awake. Engages in conversations. Follows commands. Able to make his needs known. Moves all extremities. PSYCHIATRIC: No obvious anxiety/depression. No apparent hallucinations or other psychotic thought process. Diagnostic Tests Laboratory: Laboratory Results - last 72 hr 11/15/18 11/15/18 11/15/18 13:10 13:10 13:10 WBC 9.4 RBC 3.48 L Hgb 10.0 L Hct 31.6 L MCV 90.9 MCH 28.7 MCHC 31.6 L RDW 21.0 H Plt Count 266 MPV 7.7 Prelim Diff (Auto) Slide review pending Neut % (Auto) 69.3 Lymph % (Auto) 9.4 [place] % (Auto) 14.0 H Eos % (Auto) 6.8 H Baso % (Auto) 0.5 Neut # (Auto) 6.5 Lymph # (Auto) 0.9 L [place] # (Auto) 1.3 H Eos # (Auto) 0.6 H Baso # (Auto) 0.0 WBC Differential . Diff Scan Auto diff confirmed Differential Comment . Ovalocytes 1+ H Acanthocytes (Spur) Occ H PT 11.0 INR 1.1 Sodium 140 Potassium 5.9 H Chloride 105 Carbon Dioxide 22.0 Anion Gap 13 BUN 116 H Creatinine 14.06 H* Estimated GFR 4 L Random Glucose 95 Lactic Acid Calcium 8.8 Phosphorus Magnesium 2.8 H Total Bilirubin 0.8 AST 16 ALT 18 Alkaline Phosphatase 65 Ammonia Troponin I Less than 0.02 L Total Protein 7.7 Albumin 2.4 L Urine Color Urine Clarity Urine pH Ur Specific [place] Urine Protein Urine Glucose (UA) Urine Ketones Urine Occult Blood Urine Nitrate Urine Bilirubin Urine Urobilinogen Ur Leukocyte Esterase Urine RBC Urine WBC Ur Squamous Epith Cells Micro UA Comment Ur Microscopic Review Urine Culture Comments Blood Type Antibody Screen 11/15/18 11/15/18 11/15/18 13:10 13:14 13:14 WBC RBC Hgb Hct MCV MCH MCHC RDW Plt Count MPV Prelim Diff (Auto) Neut % (Auto) Lymph % (Auto) [place] % (Auto) Eos % (Auto) Baso % (Auto) Neut # (Auto) Lymph # (Auto) [place] # (Auto) Eos # (Auto) Baso # (Auto) WBC Differential Diff Scan Differential Comment Ovalocytes Acanthocytes (Spur) PT INR Sodium Potassium Chloride Carbon Dioxide Anion Gap BUN Creatinine Estimated GFR Random Glucose Lactic Acid 0.7 Calcium Phosphorus Magnesium Total Bilirubin AST ALT Alkaline Phosphatase Ammonia Less than 10 L Troponin I Total Protein Albumin Urine Color Urine Clarity Urine pH Ur Specific [place] Urine Protein Urine Glucose (UA) Urine Ketones Urine Occult Blood Urine Nitrate Urine Bilirubin Urine Urobilinogen Ur Leukocyte Esterase Urine RBC Urine WBC Ur Squamous Epith Cells Micro UA Comment Ur Microscopic Review Urine Culture Comments Blood Type A Positive Antibody Screen Negative 11/15/18 11/16/18 11/16/18 15:16 06:39 06:39 WBC 7.5 RBC 3.54 L Hgb 10.1 L Hct 31.5 L MCV 89.2 MCH 28.7 MCHC 32.1 RDW 20.7 H Plt Count 240 MPV 7.7 Prelim Diff (Auto) Neut % (Auto) 72.1 H Lymph % (Auto) 10.1 [place] % (Auto) 14.3 H Eos % (Auto) 2.9 Baso % (Auto) 0.6 Neut # (Auto) 5.4 Lymph # (Auto) 0.8 L [place] # (Auto) 1.1 H Eos # (Auto) 0.2 Baso # (Auto) 0.0 WBC Differential . Diff Scan Differential Comment Auto diff final Ovalocytes Acanthocytes (Spur) PT INR Sodium 140 Potassium 4.4 D Chloride 103 Carbon Dioxide 24.6 Anion Gap 12 BUN 54 H Creatinine 7.66 H Estimated GFR 8 L Random Glucose 81 Lactic Acid Calcium 8.6 Phosphorus 7.2 H Magnesium 2.3 Total Bilirubin 0.6 AST 22 ALT 14 Alkaline Phosphatase 59 Ammonia Troponin I Total Protein 7.2 Albumin 2.3 L Urine Color Yellow Urine Clarity Clear Urine pH 5.0 Ur Specific [place] 1.011 Urine Protein 30 H Urine Glucose (UA) Negative Urine Ketones Negative Urine Occult Blood Small H Urine Nitrate Negative Urine Bilirubin Negative Urine Urobilinogen Less than 2 Ur Leukocyte Esterase Trace H Urine RBC 5 H Urine WBC 3 Ur Squamous Epith Cells 1 Micro UA Comment Culture not ind Ur Microscopic Review Not Reportable Urine Culture Comments Culture not ind Blood Type Antibody Screen 11/17/18 11/17/18 07:15 07:15 WBC 5.9 RBC 3.32 L Hgb 9.4 L Hct 30.0 L MCV 90.3 MCH 28.5 MCHC 31.5 L RDW 20.4 H Plt Count 215 MPV 7.5 Prelim Diff (Auto) Neut % (Auto) Lymph % (Auto) [place] % (Auto) Eos % (Auto) Baso % (Auto) Neut # (Auto) Lymph # (Auto) [place] # (Auto) Eos # (Auto) Baso # (Auto) WBC Differential Diff Scan Differential Comment Ovalocytes Acanthocytes (Spur) PT INR Sodium 142 Potassium 4.6 Chloride 105 Carbon Dioxide 27.0 Anion Gap 10 BUN 70 H Creatinine 9.54 H Estimated GFR 6 L Random Glucose 111 H Lactic Acid Calcium 8.5 Phosphorus 8.3 H D Magnesium 2.7 H Total Bilirubin 0.4 AST 25 ALT 17 Alkaline Phosphatase 58 Ammonia Troponin I Total Protein 6.9 Albumin 2.1 L Urine Color Urine Clarity Urine pH Ur Specific [place] Urine Protein Urine Glucose (UA) Urine Ketones Urine Occult Blood Urine Nitrate Urine Bilirubin Urine Urobilinogen Ur Leukocyte Esterase Urine RBC Urine WBC Ur Squamous Epith Cells Micro UA Comment Ur Microscopic Review Urine Culture Comments Blood Type Antibody Screen Result Diagrams: 11/17/18 07:15 11/17/18 07:15 Microbiology: Microbiology 11/15/18 13:10 Aerobic Blood Culture - Preliminary Blood - Line gram positive cocci Anaerobic Blood Culture - Preliminary No growth in 1 day 11/15/18 13:18 Aerobic Blood Culture - Preliminary Blood - Line No growth in 1 day Anaerobic Blood Culture - Preliminary No growth in 1 day Imaging: Chest X-Ray 11/15/18 13:01 CONCLUSION: No acute cardiopulmonary disease. Head CT 11/15/18 13:01 CONCLUSION: Chronic small vessel ischemic and atrophic changes. Patient/Family Conference Present at Family Conference: Met with patient at bedside. Family Conference Location: Bedside Issues Discussed: * Palliative care role, purpose, approach * Additional medical, psychosocial, and spiritual history * Patients general health, functional status, and cognitive changes in the months leading up to the current hospitalization * Patient/family understanding of the current medical problems * Patient/family understanding of prognosis * Patients goals of care as best understood from advance directives and/or conversations and/or values * Current medical treatment options and benefits/burdens of those options * Questions answered to the best of my ability * Palliative care contact information provided Assessment and Plan - Disease Oriented Problem List (1) Hyperkalemia (2) Acute metabolic encephalopathy (3) Acute kidney failure (4) Lung nodule (5) Hypertension (6) Anemia of renal disease - Symptom Scale (1) Pain 0-10 Scale: Unable to quantify Comment: Denies pain on exam. PRN Tylenol with codeine is available every 4 hours for pain but has not been utilized in the past 24 hours. (2) Debility, unspecified 0-10 Scale: Unable to quantify Comment: Physical therapy following Pertinent Non-Medical Issues: Psychosocial: Patient was born and raised in [place]. He is not . He states he has 7 adult children. 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 Spiritual: [employer] best. Legal: Verbally designated his niece (Gabriela) as the HCS on 07/23/2018; conversation witness. Ethical issues impacting care: No known ethical issues impacting care. Important Contacts: Nolvia Rogers, niece: [phone] or [phone] Julee Beavers, sister: [phone] Prognosis: Patient is a frail, elderly male patient who appears to be significantly debilitated. He has a complex medical history including end-stage renal; started on hemodialysis approximately 6 months ago. Patient has been hospitalized at least 6 times in the past 6 months given with ESRD, COPD exacerbation, pneumonia, sepsis. His last 2 admissions have been due to noncompliance with hemodialysis. Given patient's advanced age, multiple co- morbidities and poor functioning, he is at risk for decline/complications. Patient will from terminal renal failure without hemodialysis. Code Status: Full Code Plan: * FULL CODE * Decision-making: Patient has designated his niece, Nolvia Rogers, as his healthcare surrogate decision-maker. * Patient is currently residing at [facility] for rehab. He plans to return to [facility] upon discharge. * Discussed with pillowcase turner, Jeanne * Symptom management: = Pain: Patient c/o chronic pain in his neck/back that can be severe at time as well as pain/numbness in his legs. He denies pain on exam. CT cervical spine on 07/21/18 showed severe degenerative disc disease; no evidence of acute fractures,traumatic listhesis or significant soft tissue abnormality. Additional factors that may be contributing to patient's pain include chest pain, pneumonia, infection, bony prominences, invasive lines. Current orders for Lyrica, Deltasone, nitroglycerin and PRN acetaminophen = Debility: Patient presented to ED with complaints of generalized weakness and fatigue. Patient was diagnosed with ESRD and began hemodialysis around May,. Since that time he has been in and out of the hospital, most recently he was at [facility] receiving rehab. Patient has had 6 known hospitalizations in the past 6 months. He is frail and his rib cage is easily visible. Patient states he was walking with a rolling walker prior to admission. * Palliative care will follow the patient throughout his hospitalization to establish trust, assist with symptom management and clarification of medical treatment goals. Appreciation Thank you for the opportunity to participate in the care of Hubert Hancock. Attestation Attestation: To help prompt me to consider important information that might be impacting today's encounter and assessment, information from prior notes written by myself or my colleagues may have been "brought forward" into today's note. My signature on this note, however, is an attestation that I personally performed the exam, history, and/or decision-making noted today, and, unless otherwise indicated, the interactions with patient, family, and staff as well as the review of records all occurred today. I also attest that the listed assessment and stated plan reflect my best clinical judgment today based on the combination of historical information, prior notes, and today's exam/ interactions. When time spent is documented, it refers only to time spent today by the signer, or if indicated, combined time spent today by collaborating physician/nurse practitioner.
[2018-11-17] MEDS ORDERED: Vancomycin Inj 500 MG in Sodium Chlor 0.9% Inj 100 ML IV.SIG SCH (15:00)
--- NOTE | 2018-11-17 15:00 | P.DS ---
DS: Providers Date of admission: 11/15/18 15:40 Primary care physician: Nishant Johnson DO Consults: 11/15/18 15:27 Consult to Nephrology Routine Consulting Provider: Bam Davis V Does the patient have a Painter Maintenance who follows them?: Yes Preferred Nephrology Electrical Accessories Ii Assembler:: Filemon Green Reason for Consultation: ESRD, hyperkalemia, missed dialysis x 3 days Notified:: Service Spoke with:: JONATHAN Date Notified:: 11/15/18 Time Notified:: 16:03 Ordering Provider: JAIMIE 11/15/18 16:51 Consult to Palliative Care Routine Consulting Provider: Sukumar Jurado Reason for Consultation: End-stage renal disease with multiple readmissions, history of noncompliance with dialysis Notified:: Service Spoke with:: MARGOTH Date Notified:: 11/15/18 Time Notified:: 17:25 Ordering Provider: JUSTIN 11/17/18 11:43 HUB Only Consult Order Routine Consulting Provider: Brandyn White Brief History from admission: HPI as documented by the admitting physician. 83-year-old white male who is a resident of [facility] with a history of end -stage renal disease on hemodialysis with a history of noncompliance, BPH, COPD , recent left upper lobe lung nodule which the family has declined a biopsy for further evaluation, anemia chronic disease who was sent to the emergency room from his long-term due to altered mental status and lethargy due to patient refusing to go to dialysis for the last 3 days. He was recently hospitalized for pneumonia with findings of a lung nodule in which he and family declined a lung biopsy for further evaluation and discharge on October 31. At this time, patient is extremely sleepy but arousable to voice and stimuli. He is confused and thinks that he is at home. He does not know the year. Due to his altered mental status, I am unable to get further history from the patient. Most of the history is reviewed from reviewing old medical records. Patient update on day of discharge: Patient reports he is feeling well today. He reports he did not go to dialysis because he was feeling so tired. He states he will be compliant with dialysis. DS: Summary 83-year-old male with end-stage renal disease on hemodialysis. Patient presented with acute metabolic encephalopathy due to uremia. Apparently he missed a couple of sessions of dialysis. Patient reports that he felt too tired to go to dialysis. Patient was followed by nephrology and metabolic issues were corrected. His mental status returned to baseline. He does have a known pulmonary nodule that the patient and the family refused workup for. He is discharged to the longterm facility. Time Spent with Patient Total time spent providing and/or coordinating discharge services: Quality: VTE Deep Vein Thrombosis/Pulmonary Embolism Present on Admission: No Exam Narrative Exam Narrative: GENERAL: This is a well-nourished, well-developed patient, in no apparent distress. CARDIOVASCULAR: Normal rate and regular rhythm without murmurs, gallops, or rubs. RESPIRATORY: Good respiratory efforts. Breath sounds equal and clear to auscultation bilaterally. GASTROINTESTINAL: Abdomen soft, non-tender, non-distended. Normal active bowel sounds MUSCULOSKELETAL: Extremities without cyanosis, or edema. NEURO: Alert & Oriented x4 to person, place, time, situation. Moves all ext x4 PSYCH: Appropriate mood and affect. Results Labs on day of discharge: Labs from last 24 hours 11/17/18 11/17/18 07:15 07:15 WBC 5.9 RBC 3.32 L Hgb 9.4 L Hct 30.0 L MCV 90.3 MCH 28.5 MCHC 31.5 L RDW 20.4 H Plt Count 215 MPV 7.5 Sodium 142 Potassium 4.6 Chloride 105 Carbon Dioxide 27.0 Anion Gap 10 BUN 70 H Creatinine 9.54 H Estimated GFR 6 L Random Glucose 111 H Calcium 8.5 Phosphorus 8.3 H D Magnesium 2.7 H Total Bilirubin 0.4 AST 25 ALT 17 Alkaline Phosphatase 58 Total Protein 6.9 Albumin 2.1 L Preliminary micro results at discharge 11/15/18 13:10 Aerobic Blood Culture - Preliminary Blood - Line Staphylococcus coag negative Anaerobic Blood Culture - Preliminary No growth in 2 days 11/15/18 13:18 Aerobic Blood Culture - Preliminary Blood - Line No growth in 2 days Anaerobic Blood Culture - Preliminary No growth in 2 days Impressions ITS Impressions Chest X-Ray 11/15/18 13:01 CONCLUSION: No acute cardiopulmonary disease. Head CT 11/15/18 13:01 CONCLUSION: Chronic small vessel ischemic and atrophic changes. Discharge Plan Discharge Disposition Patient Disposition: Discharge to SNF Discharge Condition Condition: Stable Discharge Order Discharge Orders: Discharge Order (Routine); Ordered 11/17/18 Ordered By: Layla Still Physicians Team ED Provider: Rah Waters ED Midlevel Provider: Tanya Grajeda Primary Care Provider: Nishant Johnson Attending Provider: Layla Still Other Providers: Bam Davis V ; Sukumar Jurado ; [facility] [facility] /Orders / Referrals /Forms Prescriptions: Continue doxepin 25 mg Capsule 25 mg PO DAILY RF: 0 nitroglycerin [Nitrostat] 0.4 mg Tablet, Sublingual 0.4 mg Sublingual Q5M PRN (Reason: Chest Pain) RF: 0 prednisone 10 mg Tablet 5 mg PO DAILY Qty: 0 RF: 0 fluticasone-salmeterol [Advair Diskus] 250-50 mcg/dose Blister With Device 1 inh INHALATION BID RF: 0 acetaminophen 325 mg Tablet 325 mg PO Q4H PRN (Reason: Pain) RF: 0 ondansetron HCl [Zofran] 4 mg Tablet 4 mg PO TID PRN (Reason: Nausea) RF: 0 magnesium hydroxide [Milk of Magnesia] 400 mg/5 mL Suspension 30 ml PO DAILY PRN (Reason: Constipation) RF: 0 vitamin B complex Tablet 1 tab PO DAILY RF: 0 guaifenesin 600 mg Tablet Extended Release 12hr 600 mg PO Q12H RF: 0 ipratropium-albuterol 0.5 mg-3 mg(2.5 mg base)/3 mL Solution For Nebulization 1 amp NEB Q4HR NEB RF: 0 latanoprost [Xalatan] 0.005 % Drops 1 drp EACH EYE QPM RF: 0 pregabalin [Lyrica] 25 mg Capsule 25 mg PO TID RF: 0 brimonidine [Alphagan P] 0.1 % Drops 1 drp EACH EYE BID RF: 0 tamsulosin 0.4 mg capsule 0.8 mg PO HS RF: 0 Discontinued oxycodone-acetaminophen 5-325 mg Tablet 1 tab PO Q4H PRN (Reason: Acute Pain) RF: 0 lorazepam 0.5 mg Tablet 0.5 mg PO Q8H PRN (Reason: Anxiety) RF: 0 losartan 50 mg Tablet 50 mg PO DAILY RF: 0 [id number]-ibfa [Fioricet] 50-300-40 mg Capsule 1 cap PO Q4H PRN (Reason: Headache) RF: 0 Referrals: Nishant Johnson DO [Primary Care Provider] - See Instructions Discharge Instructions Additional Instructions: Your Health Problems: Goals to Promote Your Health: * To prevent worsening of your condition * To maintain your health at the optimal level Directions to Meet Your Goals: * Take your medications as prescribed * Follow your dietary instruction * Follow activity as directed * Keep your appointments as scheduled * Take your immunizations and boosters as scheduled * If your symptoms worsen call your PCP * If no PCP go to Urgent Care or Emergency Room Smoking is dangerous to your health. Avoid second hand smoke. You may reach the 24-hour crisis hotline for domestic abuse at . Status ED Status: Left Department Discharge Information Discharge Date/Time: 11/17/18 16:57
--- NOTE | 2018-11-17 15:41 | P.PNNP ---
Subjective Interval history: Plan for discharge today for rehab. Does not have any acute complaints. <Marcy Gardner - Last Filed: 11/17/18 15:37> Physical Exam Vital signs: Vital Signs 11/16/18 17:07 11/16/18 18:15 11/16/18 20:00 Temperature 97.5 F L Pulse Rate 90 99 H 95 H Respiratory Rate 18 20 Blood Pressure 109/58 L 94/52 L Pulse Oximetry 96 11/16/18 20:13 11/17/18 00:00 11/17/18 04:00 Temperature 97.5 F L 98.1 F Pulse Rate 95 H 72 71 Respiratory Rate 20 18 18 Blood Pressure 92/51 L 105/55 L Pulse Oximetry 96 98 97 11/17/18 07:51 11/17/18 08:00 11/17/18 08:20 Temperature 98.2 F Pulse Rate 67 70 Respiratory Rate 16 20 Blood Pressure 94/50 L Pulse Oximetry 94 L 94 L 94 L 11/17/18 11:30 11/17/18 12:15 Temperature 98.0 F Pulse Rate 80 89 Respiratory Rate 16 20 Blood Pressure 84/49 L Pulse Oximetry 96 Intake & Output 11/16/18 11/17/18 11/17/18 18:59 06:59 18:59 Intake Total 1000 / 1000 221 / 221 Balance 1000 / 1000 221 / 221 Weight 56.7 kg Intake: Oral 1000 / 1000 221 / 221 Other: # Voids 2 # Incontinent Voids 2 Date of Last Bowel Movement 11/15/18 11/15/18 # Bowel Movements 1 1 # Incontinent Bowel Movements 1 Narrative: GENERAL: Alert and oriented. SKIN: Warm and dry. NECK: Trachea midline. No JVD. CARDIOVASCULAR: Regular rate and rhythm. Right IJ permacath in place. RESPIRATORY: No accessory muscle use. Clear to auscultation. Breath sounds equal bilaterally. GASTROINTESTINAL: Abdomen soft, non-tender, nondistended. +BS MUSCULOSKELETAL: Extremities without clubbing, cyanosis, or edema. No obvious deformities. <Marcy Gardner - Last Filed: 11/17/18 15:37> Vital signs: Vital Signs 11/17/18 00:00 11/17/18 04:00 11/17/18 07:51 Temperature 97.5 F L 98.1 F Pulse Rate 72 71 67 Respiratory Rate 18 18 16 Blood Pressure 92/51 L 105/55 L Pulse Oximetry 98 97 94 L 11/17/18 08:00 11/17/18 08:20 11/17/18 11:30 Temperature 98.2 F Pulse Rate 70 80 Respiratory Rate 20 16 Blood Pressure 94/50 L Pulse Oximetry 94 L 94 L 11/17/18 12:15 11/17/18 15:55 11/17/18 16:19 Temperature 98.0 F 98.6 F Pulse Rate 89 85 83 Respiratory Rate 20 20 16 Blood Pressure 84/49 L 81/43 L Pulse Oximetry 96 94 L Intake & Output 11/17/18 11/17/18 11/18/18 06:59 18:59 06:59 Intake Total 221 / 221 Output Total 150 / 150 Balance 221 / 221 -150 / -150 Weight 56.7 kg Intake: Oral 221 / 221 Output: Urine 150 / 150 Other: # Voids 2 Date of Last Bowel Movement 11/15/18 11/15/18 # Bowel Movements 1 # Incontinent Bowel Movements 1 <Juan Green - Last Filed: 11/17/18 22:11> Assessment and Plan - Assessment (1) End-stage renal disease on hemodialysis Code(s): N18.6 - End stage renal disease; Z99.2 - Dependence on renal dialysis Status: Chronic Plan: ESRD on Hemodialysis on Saturday/ / Saturday Patient lives in [facility], with recent noncompliance with dialysis due to weakness Apparently missed 2 or 3 dialysis sessions. Next dialysis on Saturday at [facility] as patient is discharged. (2) Hyperkalemia Code(s): E87.5 - Hyperkalemia Status: Acute Plan: Resolved, continue to monitor (3) Acute metabolic encephalopathy Code(s): G93.41 - Metabolic encephalopathy Status: Acute Plan: possible uremic component (4) Weakness Code(s): R53.1 - Weakness Status: Acute (5) COPD (chronic obstructive pulmonary disease) Code(s): J44.9 - Chronic obstructive pulmonary disease, unspecified Status: Chronic Plan: continue to monitor History of lung nodule with no further plan for biopsy per family <Marcy Gardner - Last Filed: 11/17/18 15:37> - Assessment (1) End-stage renal disease on hemodialysis Code(s): N18.6 - End stage renal disease; Z99.2 - Dependence on renal dialysis Status: Chronic Plan: Patient seen and examined, agree with above. Patient for discharge, to continue HD tomorrow at [facility]. (2) Hyperkalemia Code(s): E87.5 - Hyperkalemia Status: Acute (3) Acute metabolic encephalopathy Code(s): G93.41 - Metabolic encephalopathy Status: Acute (4) Weakness Code(s): R53.1 - Weakness Status: Acute (5) COPD (chronic obstructive pulmonary disease) Code(s): J44.9 - Chronic obstructive pulmonary disease, unspecified Status: Chronic <Juan Green - Last Filed: 11/17/18 22:11>
[2018-11-17 16:20] VITALS: PULSE 83; RESP 16
[2018-11-17 16:27] VITALS: BP 81/43; TEMP 98.6; O2SAT 94
== END 2018-11-17 16:57 | DRG 70 ==
LOC: NEPC 12:46 → NEDA 15:40 → N05 20:47
PROVIDERS: ADMIT Family Medicine; ATTEND Family Medicine
DX: N13.8 Other obstructive and reflux uropathy; I12.0 Hypertensive chronic kidney disease with stage 5 chronic kidney disease or end stage renal disease; Z99.2 Dependence on renal dialysis; N40.1 Benign prostatic hyperplasia with lower urinary tract symptoms; K21.9 Gastro-esophageal reflux disease without esophagitis; G93.41 Metabolic encephalopathy; Z80.9 Family history of malignant neoplasm, unspecified; Z91.15 Patient's noncompliance with renal dialysis; D63.1 Anemia in chronic kidney disease; E87.5 Hyperkalemia; R91.1 Solitary pulmonary nodule; Z95.828 Presence of other vascular implants and grafts; R53.1 Weakness; J44.0 Chronic obstructive pulmonary disease with (acute) lower respiratory infection; J15.212 Pneumonia due to Methicillin resistant Staphylococcus aureus; N18.6 End stage renal disease
CPT/HCPCS: 70450; 71010; 71045; 80053; 81001; 82140; 83605; 83735; 84100; 84484; 85025; 85027; 85610; 86403; 86850; 86900; 86901; 87040; 87077; 87186; 87205; 90760; 90774; 90784; 90935; 93005; 94640; 94665; 96360; 96374; 97162; 99285; C8952; J0456; J1644; J3370; J7040; J7050; J7506; J7512